=== PATIENT | female | born 1955 | race African-American/Black ===

== ENCOUNTER 2019-06-18 10:37 | Outpatient (CLI) | payer OTHER, SELFPAY ==
[2019-06-18 10:52] LABS: Basophils Absolute Auto 0.1 K/mm3 (0.0-0.1); Basophils Percent Auto 0.4 % (0.2-1.2); Eosinophils Absolute Auto 0.1 K/mm3 (0-0.3); Eosinophils Percent Auto 1.2 % (0-4.4); Hematocrit 37.5 % (37.0-47.0); Hemoglobin 11.7 g/dL (12.0-15.0); Immature Granulocyte Absolute 0.03 K/mm3 (0.00-0.031); Immature Granulocyte Percent A 0.3 % (0-0.5); Lymphocytes Absolute Auto 4.78 K/mm3 (0.9-3.2); Lymphocytes Percent Auto 41.1 % (18.3-44.2); Mean Corpuscular HGB Conc 31.2 g/dl (32-36); Mean Corpuscular Hemoglobin 26.5 pg (26-34); Mean Corpuscular Volume 84.8 fl (80-100); Mean Platelet Volume 9.9 fl (7.4-10.4); Monocytes Absolute Auto 0.6 K/mm3 (0.1-0.6); Monocytes Percent Auto 4.9 % (2.6-8.5); Neutrophils Absolute Auto 6.1 K/mm3 (1.3-6.7); Neutrophils Percent Auto 52.1 % (45.5-73.1); Platelet Count Result 296 k/mm3 (150-375); Red Blood Count 4.42 M/mm3 (4.2-5.4); Red Cell Distribution Width 15.4 % (11.5-14.5); White Blood Count 11.6 K/mm3 (4.5-10.0)
[2019-06-18 11:35] LABS: Iron 51 ug/dL (37-170)
[2019-06-18 11:36] LABS: Blood Urea Nitrogen 15 mg/dL (7-17); Calcium 9.4 mg/dL (8.4-10.2); Carbon Dioxide 25 mmol/L (22-30); Chloride 104 mmol/L (98-107); Estimated Glomerular Filt Rate > 60; Glucose 96 mg/dL (65-105); Potassium 4.4 mmol/L (3.4-5.0); Sodium 135 mmol/L (137-145)
[2019-06-18 11:47] LABS: Percent Iron Saturation 16 % (20-50)
== END 2019-06-18 10:38 | disposition home or self-care (01) ==
PROVIDERS: PCP Internal Medicine; Visit Provider Internal Medicine Hematology & Oncology
DX: D64.9 Anemia, unspecified (principal)
CPT/HCPCS: 36415; 80048; 82728; 83540; 83550; 85025

== ENCOUNTER → 2019-12-13 10:20 | Outpatient (CLI) | payer OTHER, SELFPAY ==
--- NOTE | ~2019-12-13 | DEXA_ITS ---
Bone Density Report Name: Lindsay Pedersen Age: 64 Sex: Female Ethnicity: Black Date of : 1955 Indication: postmenopausal; screening for osteoporosis; hysterectomy; Referring Provider: RALPH FAN Study: Bone densitometry was performed. Exam Date: December 13, 2019 Accession number: [id number] Bone Density: Region BMD T-score Z-score Classification AP Spine (L1, L2, L3) 1.128 1.0 1.9 Normal Femoral Neck (Left) 0.927 0.7 1.1 Normal Total Hip (Left) 1.026 0.7 0.9 Normal Femoral Neck (Right) 0.917 0.6 1.0 Normal Total Hip (Right) 1.032 0.7 0.9 Normal Total Hip Mean 1.029 0.7 0.9 Normal World Health Organization criteria for BMD impression classify patients as: Normal (T-score at or above -1.0), Osteopenia (T-score between -1.0 and -2.5), or Osteoporosis (T-score at or below -2.5). 10-year Fracture Risk: FRAX not reported because: All T-scores for Spine Total, Hip Total, Femoral Neck at or above -1.0 Previous Exams: Region Exam Age BMD T-score BMD Change BMD Change Date g/cm2 vs Baseline vs Previous AP Spine(L1, L2, L3) 12/13/2019 64 1.128 1.0 -0.016 -0.016 11/13/2011 56 1.143 1.1 Total Hip(Left) 12/13/2019 64 1.026 0.7 -0.024 -0.024 11/13/2011 56 1.050 0.9 Total Hip(Right) 12/13/2019 64 1.032 0.7 -0.026 -0.026 11/13/2011 56 1.058 0.9 *Denotes significance at 95% confidence level, LSC for AP Spine = 0.022 g/cm2, LSC for Total Hip = 0.027 g/cm2 Clinical Information Provided by Patient: Has the following medical conditions: Hysterectomy Patient maximum height was 61.2 No regular weight bearing exercise Drinks caffeinated beverages Onset of menses at age 14 Number of children 2 Impression: The patient has normal bone mass. No significant bone loss was observed. Discussion: BONE DENSITY IS ABOVE THE MINIMUM DESIRABLE LEVEL AT ALL SKELETAL SITES TESTED. This patient?s bone mineral density is above the minimum desirable level (T-score -1.0 or better) at all sites measured. The patient should follow a healthful lifestyle (good nutrition with adequate calcium and vitamin D, and appropriate weight-bearing exercise). Follow-Up: Consider repeating this study in 5 years or sooner if there is some new clinical indication. Reported by: CHERRI on 12/13/2019 10:54:00 AM. Reviewed, dictated and finalized at l
== END ==
PROVIDERS: Visit Provider Obstetrics & Gynecology Gynecology
DX: Z78.0 Asymptomatic menopausal state (principal)
CPT/HCPCS: 77080

== ENCOUNTER 2020-01-03 14:53 | Outpatient (CLI) | payer OTHER, SELFPAY ==
[2020-01-03 15:10] LABS: Basophils Absolute Auto 0.1 K/mm3 (0.0-0.1); Basophils Percent Auto 0.5 % (0.2-1.2); Eosinophils Absolute Auto 0.1 K/mm3 (0-0.3); Eosinophils Percent Auto 1.1 % (0-4.4); Hematocrit 35.9 % (37.0-47.0); Hemoglobin 11.4 g/dL (12.0-15.0); Immature Granulocyte Absolute 0.03 K/mm3 (0.00-0.031); Immature Granulocyte Percent A 0.3 % (0-0.5); Lymphocytes Absolute Auto 5.17 K/mm3 (0.9-3.2); Lymphocytes Percent Auto 45.6 % (18.3-44.2); Mean Corpuscular HGB Conc 31.8 g/dl (32-36); Mean Corpuscular Hemoglobin 26.5 pg (26-34); Mean Corpuscular Volume 83.5 fl (80-100); Mean Platelet Volume 10.3 fl (7.4-10.4); Monocytes Absolute Auto 0.6 K/mm3 (0.1-0.6); Monocytes Percent Auto 4.9 % (2.6-8.5); Neutrophils Absolute Auto 5.4 K/mm3 (1.3-6.7); Neutrophils Percent Auto 47.6 % (45.5-73.1); Platelet Count Result 290 k/mm3 (150-375); Red Cell Distribution Width 15.7 % (11.5-14.5); White Blood Count 11.4 K/mm3 (4.5-10.0)
[2020-01-03 16:45] LABS: Iron 44 ug/dL (37-170)
[2020-01-03 16:55] LABS: Percent Iron Saturation 12 % (20-50)
== END 2020-01-03 14:54 | disposition home or self-care (01) ==
LOC: ANHLAB 14:54
PROVIDERS: Visit Provider Internal Medicine Hematology & Oncology
DX: D64.9 Anemia, unspecified (principal)
CPT/HCPCS: 36415; 82728; 83540; 83550; 85025

== ENCOUNTER 2020-07-05 14:00 | Emergency (ER) | payer OTHER, SELFPAY ==
--- NOTE | 2020-07-05 14:05 | ECG_ITS ---
Measurements Intervals [place] Rate: 70 P: 47 MS: 167 QRS: -25 QRSD: 89 T: 31 QT: 393 QTc: 427 Interpretive Statements SINUS RHYTHM WITH SINUS ARRHYTHMIA POSSIBLE LEFT ATRIAL ENLARGEMENT LOW QRS VOLTAGE IN PRECORDIAL LEADS BORDERLINE R WAVE PROGRESSION, ANTERIOR LEADS BORDERLINE T WAVE ABNORMALITY- ANTERIOR LEADS BASELINE ARTIFACT- I, III, AVL, V5 ABNORMAL ECG Electronically Signed On 07-05-2020 14:20:20 CDT by Yoandy Francisco D.O.
[2020-07-05 14:09] VITALS: BP 147/76; PULSE 78; RESP 18; TEMP 36.7; O2SAT 99
[2020-07-05 16:03] LABS: Basophils Absolute Auto 0.1 K/mm3 (0.0-0.1); Basophils Percent Auto 0.5 % (0.2-1.2); Eosinophils Absolute Auto 0.1 K/mm3 (0-0.3); Eosinophils Percent Auto 0.5 % (0-4.4); Hematocrit 36.4 % (37.0-47.0); Hemoglobin 11.5 g/dL (12.0-15.0); Immature Granulocyte Absolute 0.04 K/mm3 (0.00-0.031); Immature Granulocyte Percent A 0.3 % (0-0.5); Lymphocytes Absolute Auto 3.83 K/mm3 (0.9-3.2); Lymphocytes Percent Auto 28.8 % (18.3-44.2); Mean Corpuscular HGB Conc 31.6 g/dl (32-36); Mean Corpuscular Hemoglobin 27.3 pg (26-34); Mean Corpuscular Volume 86.5 fl (80-100); Mean Platelet Volume 10.6 fl (7.4-10.4); Monocytes Absolute Auto 0.7 K/mm3 (0.1-0.6); Monocytes Percent Auto 5.1 % (2.6-8.5); Neutrophils Absolute Auto 8.6 K/mm3 (1.3-6.7); Neutrophils Percent Auto 64.8 % (45.5-73.1); Platelet Count Result 294 k/mm3 (150-375); Red Blood Count 4.21 M/mm3 (4.2-5.4); Red Cell Distribution Width 15.1 % (11.5-14.5); White Blood Count 13.3 K/mm3 (4.5-10.0)
[2020-07-05 16:14] LABS: Anion Gap 5 mmol/L (8-16); Blood Urea Nitrogen 14 mg/dL (7-17); Calcium 9.5 mg/dL (8.4-10.2); Carbon Dioxide 29 mmol/L (22-30); Chloride 101 mmol/L (98-107); Estimated CRCL calculation 66 ml/min; Estimated Glomerular Filt Rate > 60; Glucose 167 mg/dL (65-105); Sodium 135 mmol/L (137-145)
[2020-07-05 16:52] VITALS: BP 144/80; PULSE 67
[2020-07-05 16:53] VITALS: BP 136/73; PULSE 89
[2020-07-05 16:55] VITALS: BP 128/75; PULSE 90
[2020-07-05] MEDS: MECLIZINE HCL 25 MG TABLET PO (17:00)
--- NOTE | 2020-07-05 17:15 | ED.DIZZY ---
HPI - Dizziness General Chief Complaint: Dizziness Stated Complaint: weak, dizzy Time Seen by Provider: 07/05/20 15:38 History of Present Illness HPI Narrative: Patient is a 65-year-old female who presents ER with dizziness. She was at work when occurred. Spinning dizziness associated with nausea but no sweats. She felt unsteady. No focal weakness in arm or leg. She is without chest pain or chest pressure. Has history of vertigo which is seems similar to. No ear pain or tinnitus. No sinus congestion or sore throat or cough. Related Data Home Medications Medication Instructions Recorded Confirmed ferrous sulfate 325 mg (65 mg 325 mg PO DAILY tablet 04/19/19 05/15/20 iron) tablet Allergies Allergy/AdvReac Type Severity Reaction Status Date / Time No Known Allergies Allergy Unverified 01/10/20 15:10 Review of Systems Review of Systems: All systems reviewed & are unremarkable except as noted in HPI and below Constitutional: Constitutional: Denies chills, Denies fever(s) and Denies weakness ENT: Reports dizziness, Denies nasal congestion and Denies sore throat Cardiovascular: Cardiovascular: Denies chest pain and Denies radiating jaw, neck or arm pain Gastrointestinal: Gastrointestinal: Denies abdominal pain, Denies diarrhea, Reports nausea and Denies vomiting Neurologic: Denies headache(s), Denies focal weakness and Denies numbness PMFSH Past Medical History Medical History (Updated 07/05/20 @ 18:29 by Pan Roberts MD) Anemia Diabetes mellitus with renal complications Essential (primary) hypertension Iron deficiency anemia Leukocytosis Mitral valve prolapse Vitamin D deficiency Surgical History Surgical History (Updated 07/05/20 @ 17:19 by Pan Roberts MD) History of hysterectomy Family History Family History (Updated 03/01/19 @ 13:03 by Laquita Hammond [facility]) Mother Cerebrovascular accident Father Pneumonia Sibling Acute myocardial infarction Social History Social History (Updated 04/19/19 @ 08:50 by Yuki Renteria [facility]) Smoking status: Never smoker Smoking end date: 03/24/79 Alcohol intake: never Exam Narrative: Exam Narrative: GENERAL: Well-appearing, well-nourished, and in no acute distress. HEAD: Normocephalic, atraumatic. EYES: PERRLA and EOMI. CHEST: Clear to auscultation. No respiratory distress. HEART: Regular rate and rhythm. Normal peripheral pulses. ABDOMEN: Soft, nontender, nondistended. EXTREMITIES: Normal range of motion. No edema. SKIN: Warm, dry, no rash. NEURO: No focal deficits. No upper or lower extremity drift. Normal [id number] testing. Cranial nerves II through XII intact. Alert and oriented x3. Course Course Emergency Course: Patient informed of results. Feels much better with meclizine and fluids. Discharge home. Vital Signs Vital signs: Vital Signs Temperature 98.0 F 07/05/20 14:09 Pulse Rate 78 07/05/20 14:09 Respiratory Rate 18 07/05/20 14:09 Blood Pressure 147/76 H 07/05/20 14:09 Pulse Oximetry 99 07/05/20 14:09 Temperature 98.0 F 07/05/20 14:09 Pulse Rate 90 07/05/20 16:55 Respiratory Rate 18 07/05/20 14:09 Blood Pressure 128/75 07/05/20 16:55 Pulse Oximetry 99 07/05/20 14:09 MDM - Dizziness Lab Data Result diagrams: 07/05/20 15:56 07/05/20 15:56 Labs: Lab Results 07/05/20 07/05/20 07/05/20 Range/Units 15:56 15:56 17:51 WBC 13.3 H (4.5-10.0) K/mm3 RBC 4.21 (4.2-5.4) M/mm3 Hgb 11.5 L (12.0-15.0) g/dL Hct 36.4 L (37.0-47.0) % MCV 86.5 (80-100) fl MCH 27.3 (26-34) pg MCHC 31.6 L (32-36) g/dl RDW 15.1 H (11.5-14.5) % Plt Count 294 (150-375) k/mm3 MPV 10.6 H (7.4-10.4) fl Immature Gran % (Auto) 0.3 (0-0.5) % Neut % (Auto) 64.8 (45.5-73.1) % Lymph % (Auto) 28.8 (18.3-44.2) % Cochran % (Auto) 5.1 (2.6-8.5) % Eos % (Auto) 0.5 (0-4.4) % Baso % (A
[2020-07-05 17:59] LABS: Add Urine Microscopic? NO; Appearance Urine Clear (Clear); Bilirubin Urine Negative (Negative); Blood Urine Negative (Negative); Color Urine Straw (Yellow); Glucose Urine UA Negative (Negative); Ketones Urine Negative (Negative); Leukocyte Esterase Ur Negative LEU/UL (Negative); Nitrate Urine Negative (Negative); Protein Urine Negative (Negative); Specific Grav Ur 1.006 (1.001-1.035); Urobilinogen Urine Negative mg/dL (<2.0)
[2020-07-05] MEDS: SODIUM CHLORIDE 0.9% IV 1,000 ML 999 ML IV CONT (18:00)
[2020-07-05 19:16] VITALS: BP 115/63; PULSE 76; RESP 18; O2SAT 99
== END 2020-07-05 19:28 | disposition home or self-care (01) ==
PROVIDERS: Emergency Provider Emergency Medicine; PCP Internal Medicine
DX: R42 Dizziness and giddiness (principal); I10 Essential (primary) hypertension; E55.9 Vitamin D deficiency, unspecified; D50.9 Iron deficiency anemia, unspecified; R94.31 Abnormal electrocardiogram [ECG] [EKG]; I34.1 Nonrheumatic mitral (valve) prolapse; E11.29 Type 2 diabetes mellitus with other diabetic kidney complication; N28.9 Disorder of kidney and ureter, unspecified; Z79.84 Long term (current) use of oral hypoglycemic drugs
CPT/HCPCS: 36415; 80048; 81003; 85025; 93005; 96360; 99284; A9270; J7030

== ENCOUNTER 2020-08-02 13:03 | Outpatient (CLI) | payer OTHER, SELFPAY ==
[2020-08-02 13:57] LABS: Basophils Percent Auto 0.3 % (0.2-1.2); Eosinophils Absolute Auto 0.1 K/mm3 (0-0.3); Eosinophils Percent Auto 1.1 % (0-4.4); Hematocrit 38.4 % (37.0-47.0); Hemoglobin 12.2 g/dL (12.0-15.0); Immature Granulocyte Absolute 0.02 K/mm3 (0.00-0.031); Immature Granulocyte Percent A 0.2 % (0-0.5); Lymphocytes Absolute Auto 5.69 K/mm3 (0.9-3.2); Lymphocytes Percent Auto 44.1 % (18.3-44.2); Mean Corpuscular HGB Conc 31.8 g/dl (32-36); Mean Corpuscular Hemoglobin 27.1 pg (26-34); Mean Corpuscular Volume 85.3 fl (80-100); Mean Platelet Volume 10.5 fl (7.4-10.4); Monocytes Absolute Auto 0.7 K/mm3 (0.1-0.6); Monocytes Percent Auto 5.2 % (2.6-8.5); Neutrophils Absolute Auto 6.3 K/mm3 (1.3-6.7); Neutrophils Percent Auto 49.1 % (45.5-73.1); Platelet Count Result 347 k/mm3 (150-375); White Blood Count 12.9 K/mm3 (4.5-10.0)
[2020-08-02 16:23] LABS: Iron 39 ug/dL (37-170)
[2020-08-02 16:33] LABS: Anion Gap 10 mmol/L (8-16); Blood Urea Nitrogen 17 mg/dL (7-17); Calcium 10.1 mg/dL (8.4-10.2); Carbon Dioxide 27 mmol/L (22-30); Chloride 101 mmol/L (98-107); Estimated Glomerular Filt Rate > 60; Glucose 136 mg/dL (65-105); Potassium 4.2 mmol/L (3.4-5.0); Sodium 138 mmol/L (137-145)
[2020-08-02 16:34] LABS: Percent Iron Saturation 12 % (20-50)
[2020-08-02 16:36] LABS: Hemoglobin A1C 8.5 % (<5.7)
[2020-08-02 16:55] LABS: Creatinine Urine 103.3 mg/dL
[2020-08-02 16:59] LABS: MALB Creatinine Ratio 74.1 mg/g (0-30); Microalbumin Urine Random 76.5 mg/L (0-16.7)
== END 2020-08-02 13:04 | disposition home or self-care (01) ==
PROVIDERS: PCP Internal Medicine; Visit Provider Internal Medicine Hematology & Oncology
DX: D64.9 Anemia, unspecified (principal); E11.29 Type 2 diabetes mellitus with other diabetic kidney complication
CPT/HCPCS: 36415; 80048; 82043; 82728; 83036; 83540; 83550; 85025

== ENCOUNTER → 2021-03-26 01:29 | Outpatient (CLI) | payer OTHER, SELFPAY ==
[2021-03-27 13:54] LABS: SARS-CoV-2 RNA PCR Negative
== END ==
PROVIDERS: PCP Internal Medicine; Visit Provider Nurse Practitioner
DX: R68.89 Other general symptoms and signs (principal); Z20.822 Contact with and (suspected) exposure to COVID-19
CPT/HCPCS: C9803; U0003; U0005

== ENCOUNTER 2023-04-21 07:31 | Emergency (ER) | payer MEDICARE, MEDICAID, SELFPAY ==
--- NOTE | ~2023-04-21 | XR_ITS ---
EXAMINATION: XR knee RT 3V DATE: 04/21/2023 11:17 INDICATION: Right knee pain. Fall. TECHNIQUE: 3 views of right knee were obtained. COMPARISON: None. FINDINGS: Bone alignment is normal. No fracture. There is moderate osteoarthritis of medial compartme nt and mild osteoarthritis of lateral compartment. No knee joint effusion. IMPRESSION: 1. Moderate right knee osteoarthritis. Reviewed, dictated and finalized at location A. 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
--- NOTE | ~2023-04-21 | XR_ITS ---
EXAMINATION: XR chest 2V DATE: 04/21/2023 10:22 INDICATION: Shortness of breath. TECHNIQUE: Frontal and lateral views of the chest were obtained. COMPARISON: Chest 2 views 02/23/2018 FINDINGS: There is no pneumonia, pleural effusion, or pneumothorax. Cardiomegaly is noted. IMPRESSION: 1. Cardiomegaly. Reviewed, dictated and finalized at location A. 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 Cardiomegaly.
[2023-04-21 07:36] VITALS: BP 156/81; PULSE 85; RESP 18; TEMP 36.5; O2SAT 100
[2023-04-21 09:56] VITALS: BP 148/75; PULSE 74; PULSE 78; RESP 18; O2SAT 100
--- NOTE | 2023-04-21 10:10 | ECG_ITS ---
Measurements Intervals [place] Rate: 72 P: 42 IN: 170 QRS: -21 QRSD: 106 T: 24 QT: 410 QTc: 452 Interpretive Statements SINUS RHYTHM POSSIBLE LEFT ATRIAL ENLARGEMENT CONSIDER ANTEROSEPTAL INFARCT, AGE INDETERMINATE CONSIDER INFERIOR INFARCT, AGE INDETERMINATE BASELINE ARTIFACT- I, II, AVR, AVL ABNORMAL ECG COMPARED TO ECG 07/05/2020 14:17:37 MYOCARDIAL INFARCT NOW PRESENT Electronically Signed On 04-21-2023 11:59:52 PURSE [employer]AMER by Yoandy Francisco D.O.
--- NOTE | 2023-04-21 10:56 | ED.GENADULT ---
HPI - General Adult General Chief complaint: Shortness of Breath/Dyspnea Stated complaint: shortness of breath Time Seen by Provider: 04/21/23 10:09 History of Present Illness HPI narrative: 68-year-old female presenting to the emergency department for evaluation for increased exertional shortness of breath. Patient states she had a ground level fall a few days ago. Patient reports she did re-injure her right knee, patient reports he does have a known meniscus injury to that knee. Patient does have a prior history of a meniscus injury to that right knee but states that it feels more comfortable after having fall. Patient was also complaining about some gurgling sounds when she lies on her left. Patient denies any current chest pain or shortness of breath. Patient denies any prior history of CHF Related Data Allergies Allergy/AdvReac Type Severity Reaction Status Date / Time No Known Allergies Allergy Unverified 04/21/23 10:05 Review of Systems Review of Systems: All systems reviewed & are unremarkable except as noted in HPI and below PMFSH Past Medical History Medical History Anemia Diabetes mellitus with renal complications Essential (primary) hypertension Hyperlipidemia Iron deficiency anemia Leukocytosis Mitral valve prolapse ESTELA (obstructive sleep apnea) Vitamin D deficiency Surgical History Surgical History (Reviewed 04/17/21 @ 08:26 by Romana Hazel [facility]) History of hysterectomy Family History Family History Mother Cerebrovascular accident Father Pneumonia Sibling Acute myocardial infarction Social History Social History (Reviewed 04/17/21 @ 08:26 by Romana Hazel [facility]) Smoking status: Never smoker Smoking end date: 03/24/79 Alcohol intake: never Exam Narrative: APPEARANCE: Well appearing, no pain, no distress, well-nourished. HEAD: normocephalic, atraumatic. EYES: PERRLA/EOMI, conjunctivae clear. NOSE: Normal no drainage NECK: Supple. No adenopathy, no masses. RESPIRATORY: Airway patent, respirations nonlabored. Clear to auscultation bilaterally, no rales, rhonchi, wheezing. CARDIOVASCULAR: Regular rate and rhythm without murmurs rubs or gallops. ABDOMINAL: Soft, nontender, nondistended, normal bowel sounds MUSCULOSKELETAL: Effusion to right knee NEURO: Alert. Cranial nerves II through XII intact. Good gait. Good coordination SKIN: Warm, dry. Normal Color Course Course Emergency Course: 68-year-old female presented to the emergency department for evaluation of some left-sided chest congestion. Patient is afebrile with no significant leukocytosis and hemoglobin 11.8, patient has no acute abnormalities on her CMP and patient's BNP was only 242. UA shows no evidence of infection patient was negative for COVID RSV and influenza. X-ray of the knee did show osteoarthritis and chest x-ray showed cardiomegaly. EKG show normal sinus rhythm. Patient was updated results of her workup be was encouraged to have follow-up with her primary care physician. All questions concerns were addressed patient was well-appearing at time of discharge. Vital Signs Vital signs: Vital Signs Temperature 97.7 F 04/21/23 07:36 Pulse Rate 85 04/21/23 07:36 Respiratory Rate 18 04/21/23 07:36 Blood Pressure 156/81 H 04/21/23 07:36 Pulse Oximetry 100 04/21/23 07:36 Oxygen Delivery Room Air 04/21/23 07:36 Temperature 97.7 F 04/21/23 07:36 Pulse Rate 70 04/21/23 11:13 Respiratory Rate 18 04/21/23 11:13 Blood Pressure 138/72 04/21/23 11:13 Pulse Oximetry 100 04/21/23 11:13 Oxygen Delivery Room Air 04/21/23 09:56 Medical Decision Making Differential Diagnosis Differential Diagnosis: Internal derangement of knee, CHF, pneumonia, COVID, influenza, RSV Vital Signs Vital Signs: Vital Signs Temperatu
[2023-04-21 10:59] LABS: Basophils Absolute Auto 0.1 K/mm3 (0.0-0.1); Basophils Percent Auto 0.5 % (0.2-1.2); Eosinophils Absolute Auto 0.1 K/mm3 (0-0.3); Eosinophils Percent Auto 0.8 % (0-4.4); Hematocrit 38.4 % (37.0-47.0); Hemoglobin 11.8 g/dL (12.0-15.0); Immature Granulocyte Absolute 0.02 K/mm3 (0.00-0.031); Immature Granulocyte Percent A 0.2 % (0-0.5); Lymphocytes Percent Auto 42.2 % (18.3-44.2); Mean Corpuscular HGB Conc 30.7 g/dl (32-36); Mean Corpuscular Hemoglobin 26.3 pg (26-34); Mean Corpuscular Volume 85.7 fl (80-100); Mean Platelet Volume 10.7 fl (7.4-10.4); Monocytes Absolute Auto 0.5 K/mm3 (0.1-0.6); Monocytes Percent Auto 5.1 % (2.6-8.5); Neutrophils Absolute Auto 5.2 K/mm3 (1.3-6.7); Neutrophils Percent Auto 51.2 % (45.5-73.1); Platelet Count Result 271 k/mm3 (150-375); Red Blood Count 4.48 M/mm3 (4.2-5.4); Red Cell Distribution Width 15.5 % (11.5-14.5); White Blood Count 10.2 K/mm3 (4.5-10.0)
[2023-04-21 11:13] VITALS: BP 138/72; PULSE 70; RESP 18; O2SAT 100
[2023-04-21 11:14] LABS: Alanine Aminotransferase 13 U/L (6-35); Alkaline Phosphatase 82 U/L (38-126); Anion Gap 6 mmol/L (8-16); Aspartate Amino Transferase 20 U/L (14-36); Bilirubin,Total 0.4 mg/dL (0.2-1.3); Blood Urea Nitrogen 13 mg/dL (7-17); Calcium 9.4 mg/dL (8.4-10.2); Carbon Dioxide 27 mmol/L (22-30); Chloride 103 mmol/L (98-107); Estimated CRCL calculation 51 ml/min; Estimated Glomerular Filt Rate > 60; Glucose 89 mg/dL (65-110); Potassium 3.9 mmol/L (3.4-5.0); Sodium 136 mmol/L (137-145)
[2023-04-21 11:37] LABS: Influenza A QL RT-PCR Negative (Negative); Influenza B QL RT-PCR Negative (Negative); RSV RNA, RT-PCR Negative (Negative); SARS-CoV-2 RNA PCR Negative (Negative)
[2023-04-21 11:48] LABS: Appearance Urine Clear (Clear); Bilirubin Urine Negative (Negative); Blood Urine Negative (Negative); Color Urine Yellow (Yellow); Glucose Urine UA 2+ mg/dL (Negative); Ketones Urine Negative (Negative); Leukocyte Esterase Ur Negative LEU/UL (Negative); Nitrate Urine Negative (Negative); Protein Urine Negative (Negative); Specific Grav Ur 1.005 (1.001-1.035); Urobilinogen Urine 0.2 mg/dL (<2.0); pH Urine 6.5 (5.0-9.0)
[2023-04-21 11:52] LABS: Add Urine Microscopic? YES
[2023-04-21 11:56] LABS: NT Pro B Type Natriuretic Pept 242 pg/mL (19.9-100)
== END 2023-04-21 12:45 | disposition home or self-care (01) ==
PROVIDERS: Emergency Provider Emergency Medicine; PCP Internal Medicine
DX: R05.9 Cough, unspecified (principal); M17.11 Unilateral primary osteoarthritis, right knee; E11.9 Type 2 diabetes mellitus without complications; I10 Essential (primary) hypertension; E78.5 Hyperlipidemia, unspecified; Z20.822 Contact with and (suspected) exposure to COVID-19
CPT/HCPCS: 36415; 71046; 73562; 80053; 81001; 83880; 85025; 87637; 93005; 99284

== ENCOUNTER 2024-03-16 00:17 | Day surgery (SDC) | payer MEDICARE, MEDICAID, SELFPAY ==
[2024-03-04 11:49] VITALS: BMI 38.4
--- NOTE | 2024-03-16 07:38 | WPDANESEPPF ---
Anes - Initial Pre Proc Eval Procedure: Operation Date: 03/16/24 11:00 Proposed Procedures p Screening Colonoscopy - Chaim Roberson MD Date/Time: 03/16/24 07:38 Surgeon: Chaim Roberson MD Pre Op Diagnosis: screening neoplasm colon Patient Data Age: 69 Gender: F Height: 1.57 m Weight: 95.3 kg Allergies Allergy/AdvReac Type Severity Reaction Status Date / Time adhesive tape AdvReac Itching Verified 03/16/24 09:36 Home Medications ?Medication ?Instructions ?Recorded ?Confirmed ?Type amlodipine 10 mg tablet 10 mg PO DAILY #90 tabs 08/11/20 03/16/24 Rx atorvastatin 20 mg tablet 20 mg PO QHS #90 tabs 04/17/21 03/04/24 Rx lancets (Accu-Chek Softclix #100 ea 06/14/21 03/04/24 Rx Lancets) blood-glucose meter (Accu-Chek #1 ea 06/15/21 03/04/24 Rx Guide Glucose Meter) losartan 100 mg tablet 100 mg PO DAILY #90 tabs 08/09/21 03/04/24 Rx blood sugar diagnostic (Accu-Chek #100 ea 11/11/22 03/04/24 Rx Guide test strips) calcitriol 0.25 mcg capsule 0.25 mcg PO DAILY 03/04/24 03/04/24 History dapagliflozin propanediol 10 mg 10 mg PO DAILY 03/04/24 03/04/24 History tablet (Farxiga) dulaglutide 1.5 mg/0.5 mL 1.5 mg subcut WEEKLY 03/04/24 03/04/24 History subcutaneous pen injector (Trulicity) ergocalciferol (vitamin D2) 1,250 50,000 unit PO WEEKLY 03/04/24 03/04/24 History mcg (50,000 unit) capsule linaclotide 72 mcg capsule 145 mcg PO DAILY 03/04/24 03/04/24 History (Linzess) Patient hx anesthesia problems: none Family hx anesthesia problems: none Results Review: All pre-operative results and documents have been reviewed as part of the pre-operative evaluation. [facility] Past Medical History Medical History (Reviewed 04/17/21 @ 08:26 by Romana Hazel, [facility]) Anemia Diabetes mellitus with renal complications Essential (primary) hypertension Hyperlipidemia Iron deficiency anemia Leukocytosis Mitral valve prolapse ESTELA (obstructive sleep apnea) Vitamin D deficiency Surgical History Surgical History History of hysterectomy Family History Family History Mother Cerebrovascular accident Father Pneumonia Sibling Acute myocardial infarction Social History Social History Smoking status: Never smoker Smoking end date: 03/24/79 Alcohol intake: never Substance use type: does not use Living arrangements: alone Spiritual care concerns: No Anes - Eval Final PreProcedure Day of Procedure 03/16/24 07:38 Patient weight: obese Heart: regular rate and rhythm Lungs: clear to auscultation Airway: Mallampati scale class II Neurological: alert and oriented Last oral intake: >/= 8 hours ASA classification: III Emergent: no Anesthetic plan: proceed Anesthesia type and monitoring: general GIVS and standard monitoring Results Review: All pre-operative results and documents have been reviewed as part of the pre-operative evaluation. Informed Consent: The patient's anesthetic plan and its attendant risks and benefits were discussed with the patient/family/POA. Questions were solicited and answers provided to the satisfaction of the patient/family/POA.
[2024-03-16 09:38] VITALS: BP 150/100; PULSE 81; RESP 18; TEMP 36.2; O2SAT 100; BMI 36.9
[2024-03-16 09:43] LABS: Glucose Point of Care 86 mg/dl (65-105)
[2024-03-16] MEDS: LACTATED RINGERS 1,000 ML 150 ML IV CONT (09:55)
--- NOTE | 2024-03-16 10:05 | PM.HPGS ---
History of Present Illness History of Present Illness Consent: Risks, benefits, and alternatives have been discussed and questions answered. Patient agrees to proceed with procedure. Chief complaint: screening neoplasm colon Narrative: Lindsay Pedersen is a 69 year old female here for screening colonoscopy, last one more than 10 years ago Review of Systems Review of Systems: All systems reviewed & are unremarkable except as noted in HPI and below PMFSH Past Medical History Medical History (Updated 03/16/24 @ 10:05 by Chaim Roberson MD) Colon cancer screening Hyperlipidemia ESTELA (obstructive sleep apnea) Mitral valve prolapse Iron deficiency anemia Vitamin D deficiency Leukocytosis Essential (primary) hypertension Anemia Diabetes mellitus with renal complications Surgical History Surgical History (Reviewed 04/17/21 @ 08:26 by Romana Hazel [facility] [address]) History of hysterectomy Family History Family History Mother Cerebrovascular accident Father Pneumonia Sibling Acute myocardial infarction Social History Social History Smoking status: Never smoker Smoking end date: 03/24/79 Alcohol intake: never Substance use type: does not use Living arrangements: alone Spiritual care concerns: No Meds Home Medications and Allergies Home Medications ?Medication ?Instructions ?Recorded ?Confirmed ?Type amlodipine 10 mg tablet 10 mg PO DAILY #90 tabs 08/11/20 03/16/24 Rx atorvastatin 20 mg tablet 20 mg PO QHS #90 tabs 04/17/21 03/16/24 Rx lancets (Accu-Chek Softclix #100 ea 06/14/21 03/04/24 Rx Lancets) blood-glucose meter (Accu-Chek #1 ea 06/15/21 03/04/24 Rx Guide Glucose Meter) losartan 100 mg tablet 100 mg PO DAILY #90 tabs 08/09/21 03/16/24 Rx blood sugar diagnostic (Accu-Chek #100 ea 11/11/22 03/04/24 Rx Guide test strips) calcitriol 0.25 mcg capsule 0.25 mcg PO DAILY 03/04/24 03/16/24 History dapagliflozin propanediol 10 mg 10 mg PO DAILY 03/04/24 03/16/24 History tablet (Farxiga) dulaglutide 1.5 mg/0.5 mL 1.5 mg subcut WEEKLY 03/04/24 03/16/24 History subcutaneous pen injector (Trulicity) ergocalciferol (vitamin D2) 1,250 50,000 unit PO WEEKLY 03/04/24 03/16/24 History mcg (50,000 unit) capsule linaclotide 72 mcg capsule 145 mcg PO DAILY 03/04/24 03/16/24 History (Linzess) Allergies Allergy/AdvReac Type Severity Reaction Status Date / Time adhesive tape AdvReac Itching Verified 03/16/24 09:36 Vital Signs Vital Signs - 24 hr 03/16/24 09:38 Temperature 97.2 F L Pulse Rate 81 Respiratory Rate 18 Blood Pressure 150/100 H Pulse Oximetry 100 Oxygen Delivery Room Air Exam Const: General: comfortable and no acute distress HENMT: Face/Nose/Sinus: Normal nares present Eyes: General: appearance normal, both eyes and all related structures Neck: Neck: no JVD Resp: Auscultation: clear to auscultation bilaterally Cardio: Rate: regular rate Rhythm: regular rhythm GI: Inspection: non-distended GI Palp: Yes Soft to palpation Skin: General skin exam: normal color Neuro: General: gait normal Speech: normal speech Extrem: General: normal to inspection Psych: Mental Status: mental status grossly normal Assessment and Plan Assessment and plan (1) Colon cancer screening: Code(s): Z12.11 - Encounter for screening for malignant neoplasm of colon Status: Acute Assessment and Plan: colonoscopy
[2024-03-16 10:18] VITALS: BP 122/58; PULSE 73; RESP 15; O2SAT 96
[2024-03-16 10:28] VITALS: BP 127/63; PULSE 63; RESP 23; O2SAT 99
[2024-03-16 10:38] VITALS: BP 132/62; PULSE 71; RESP 20; O2SAT 100
--- OUTSIDE RECORDS SUMMARY | 2024-03-23 01:46 | XMS_ITS ---
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 Name Role Phone Fidencio French MD Primary Care Provider Unavail able Tammy Aponte Unavailable [phone] Allergies No Known Allergies REASON FOR VISIT DFC (Diabetic foot care) Medications Medication SIG (Take, Route, Fr equency, Duration) Notes Start Date End Date Status amLODIPine Besylate Active Farxiga Active Losartan Potassium A ctive Calcitriol Active Vitamin D Active Trulicity Active Atorvastatin Calcium Active Vital Signs Height 62 in 01/21/2024 Weight 205 lbs 01/21/2024 BMI 37.49 kg/m2 01/21/2024 Encounters Encounter Location Date Provider Diagnosis 1 OF Agusto Choudhury [facility] [address] [address] 01/21/2024 Tamym Fadi Onychodystrophy L60. 3 ; Type 2 diabetes mellitus with other diabetic neurological complication E11.49 and Callus L84 Assessments Encounter Date Diagnosis (ICD Code) Assessment Notes Treatment Notes Treatment Clinical Notes Section Notes 01/21/2024 Onychodystrophy (ICD-10 - L60.3) 01/21/2024 Type 2 diabetes mellitus with other diabetic neurological complication (ICD-10 - E11.49) Considering the associated comorbidities and physical exam findings today, this patient is at substantial risk of developing serious foot complications in the absence of regular and professional palliative foot care. Discussed diabetic shoes and inserts. She will call if she would like a prescription for diabetic inserts. 01/21/2024 Callus (ICD-10 - L84) Plan Of Treatment Treatment Notes Assessment Notes Type 2 diabetes mellitus wit h other diabetic neurological complication Considering the associated comorbidities and physical exam findings today, this patient is at substantial risk of developing serious foot complications in the absence of regular and professional palliative foot care. Discussed diabetic shoes and inserts. She will call if she would like a prescription for diabetic inserts. Next Appt Details Follow Up: 10-12 weeks or co ntact office PRN with any concerns, Reason: Provider Name:Tammy Tannera, 04/01/2024 10:40:00 AM, [address], [address], [place], [address], Procedure Notes * Category Sub-Category Detail Notes PALLIATIVE FOOT CARE: Callus paring: ([id number]) Le ss than five calluses as noted above reduced with a sterile scalpel blade Dystrophic nail trim (G0127) All dystrop hic nails reduced in length and thickness with curettage of debris from nail margins as needed Progress Notes * Danielle PEDERSENhDOB:1955 (69 yo F)Acc No.[id number]:01/21/2024 Progress Note Patient:?Danielle PEDERSENh Provider:?Tammy Aponte DPM :1955???Age:69 Y???Sex:Female D ate:01/21/2024 Address:[address] [place], [place] [id number] Pcp:Fidencio French MD Subjective: * Chief Complaints: * ???DFC (Diabetic foot care) * HPI: ???MA assisting with visit::?HPI/Rooming:?Nalini.?Primary reason for visit::?Diabetic Foot Care: ?69 y/o diabetic female RTO for diabetic foot care. Patient reports no acute issues with nails or calluses today. She has some questions about diabetic inserts. Reports last HA1c of 5.8.? * ROS:?* MULTI-SYSTEM REVIEW::?Nausea, fever or chillls?denies.?Currently dealing with infection, flu or open wound: ?denies.?Any change in medications since last visit??denies.?Any changes in medical history/hospitalizations??denies.? * Medical History:? * Surgical History:?RT TKR 2023 * Hospitalization/Major Diagno stic Procedure:? * Medications:?TakingCalcitrio l Vitamin D Farxiga Losartan Potassium amLODIPine Besylate Atorvastatin Calcium Trulicity Medication List reviewed and reconciled with the patientTaking Calcitriol Taking Vitamin D Taking Farxiga Taking Losartan Potassium Taking amLODIPine Besylate Taking Atorvastatin Calcium Taking Trulicity Medication List reviewed and reconciled with the patient * Allergies:?N.K.D.A.no[Allerg ies Verified] Objective: * Vitals:?Wt:205lbs, Wt-k .99 kg, Ht: 62 in, BMI:37.49Index. * Examination: ???General Examination: ?Constitutional / Appearance: ?No acute distress , Well nourished, Appropriate personal hygiene.?Mental status: ?Cooperative, Oriented to person, place and time, Mood and affect: normal, Judgement and intellect: normal with appropriate response to questions.?Shoes today:?Sneakers.?Lower Extremity VASCULAR: : ?Pulses:?DP pulse diminished b/l , PT pulse diminished b/l.?Temperature gradient: ?relatively warm from proximal to distal, bilateral.?Pedal hair: ?sparse, bilateral.?Venous insufficiency edema:?Mild, bilateral lower legs.?Capillary refill at distal toes? less than 3 seconds, bilateral.?Lower Extremity DERM: : ?Skin: ?no suspicious lesions, no open sores, without interdigital maceration, bilateral.?Nails:?Nails appear elongated and dystrophic with abnormal shape, periungual debris, subungual hyperkeratosis..?Hyperkeratotic lesions LEFT foot: ?medial hallux IPJ.?Hyperkeratotic lesions RIGHT foot: ?medial hallux IPJ.?Lower Extremity NEURO: : ?General sensation appears?intact , bilateral.?Muscle tone?within normal limits , bilateral.?Monofilament test (10 gram pressure)?Exam of 05/01/2023:?revealed intact sensation to, multiple toes, entire foot, bilateral.?Vibration perception: ?Exam of 05/01/2023:?noted intact per evaluation with 128Hz tuning fork applied to distal hallux compared to ipsilateral medial malleolus @ left foot, noted significantly diminished per evaluation with 128Hz tuning fork applied to distal hallux compared to ipsilateral medial malleolus @ right foot.?Lower Extremity MSK: : ?Gait?Slow, wide-based gait.?Foot type:?Bilateral lower extremity exhibits pes planus foot type with decreased medial arch.?Left lower extremity inspection and palpation: ?No palpable masses or nodules noted. Adequate ROM noted to the joints..?Right lower extremity inspection and palpation: ?No palpable masses or nodules noted. Adequate ROM noted to the joints.?.?Foot deformities:?Bilateral:, hammertoes.? Assessment: * Assessment: 1.?Onychodystrophy - L60.3?? ?2.?Type 2 diabetes mellitus with other diabetic neurological complication - E11.49 (Primary)???3.?Callus - L84??? Plan: * Treatment: * Procedures:?PALLIATIVE FOOT CARE::?Callus paring: ?([id number]) Less than five calluses as noted above reduced with a sterile scalpel blade.?Dystrophic nail trim (G0127)?All dystrophic nails reduced in length and thickness with curettage of debris from nail margins as needed.? * Procedure Codes:?90429 TRIM SKIN LESIONS, 2 TO [id number] TRIMMING DYSTROPHIC NAILS ANY #, Modifiers: 59 * Preventive Medicine:? ??Screenings:?FALL RISK SCREENING?Fall Risk Assessment:?One fall without injury in the past year * Follow Up:?10-12 weeks or co ntact office PRN with any concerns * Images: * ARCHITECT Sign off status: Completed true * Provider:Ran Aponte DPM Date:?2023 Generated for Alisa burns/[place]/Maryitting on:?03/23/2024 01:46 AM EDI ARCHITECT History and Physical Notes * HPI (History of Present Illness) Category Sub-Category Detail Notes Category Not es Primary reason for visit: Diabetic Foot Care: 69 y/o diabetic female RTO for diabetic foot care. Patient reports no acute issues with nails or calluses today. She has some questions about diabetic inserts.Reports last HA1c of 5.8 MA assisting with visit: HPI/Rooming: Nalini Examination Category Sub-Category Detail Notes Category Not es General Examination Mental status: Cooperative, Oriented to person, place and time, Mood and affect: normal, Judgement and intellect: normal with appropriate response to questions Shoes today: Sneakers Constitutional / Appearance: No acute di stress , Well nourished, Appropriate personal hygiene Lower Extremity VASCULAR: Venous insufficiency e milka: Mild, bilateral lower legs Pulses: DP pulse diminished b/l , PT pulse diminished b/l Temperature gradient: relatively warm fr om proximal to distal, bilateral Pedal hair: sparse, bilateral Capillary refill at distal toes less nithin n 3 seconds, bilateral Lower Extremity NEURO: Monofilament test (10 gram pressure) Exam of 05/01/2023: revealed intact sensation to, multiple toes, entire foot, bilateral Vibration perception: Exam of 05/01/2023 : noted intact per evaluation with 128Hz tuning fork applied to distal hallux compared to ipsilateral medial malleolus @ left foot, noted significantly diminished per evaluation with 128Hz tuning fork applied to distal hallux compared to ipsilateral medial malleolus @ right foot General sensation appears intact , bilat eral Muscle tone within normal limits , bilateral Lower Extremity MSK: Foot type: Bilateral l ower extremity exhibits pes planus foot type with decreased medial arch Foot deformities: Bilateral:, hammerto es Left lower extremity inspect ion and palpation: No palpable masses or nodules noted. Brynn quate ROM noted to the joints. Right lower extremity inspec tion and palpation: No palpable masses or nodules noted. Brynn quate ROM noted to the joints. Gait Slow, wide-based gai t Lower Extremity DERM: Skin: no suspici ous lesions, no open sores, without interdigital maceration, bilateral Nails: Nails appear elongat ed and dystrophic with abnormal shape, periungual debris, subungual hyperkeratosis. Hyperkeratotic lesions LEFT foot: medial hallux IPJ Hyperkeratotic lesions RIGHT foot: media l hallux IPJ
--- OUTSIDE RECORDS SUMMARY | 2024-03-23 01:46 | XMS_ITS ---
Author Name Amina Mccray Address [address] [facility] [address] [place] [address] [facility], Address [address] [facility] [address] [place] [address] Care Team Providers Care Billing Clerk Name Role Phone Amina Mccray Primary Care Physician Unavailab le Amina Mccray Preferred Provider Unavailable Allergies and Adverse Reactions Name Reaction Notes NO KNOWN DRUG ALLERGIES Plan of Treatment Planned Activity Comments Planned Date Planned Time Plan /Goal GUSTAVO w/ creatinine 01/14/2024 12:00 AM GUSTAVO w/ creatinine 01/14/2024 12:00 AM QuantaFlo, In-Center Only 01/14/2024 2:02 PM QuantaFlo, In-Center Only 01/14/2024 2:22 PM XR, Skull <4 views 08/22/2021 12:00 AM XR, Knee 1 or 2 views 08/22/2021 12:00 AM DEXA scan axial skeleton 08/22/2021 12:00 AM Transthoracic Echocardiogram (Standard echo) (TTE) 08/22/2021 12:00 AM XR, Chest 2 views 11/21/2021 12:00 AM Screening mammography of bot h breasts, two views 12/27/2021 12:00 AM XR, Left Knee 3 views 02/06/2022 12:00 AM MRI, Right knee w/o contrast 02/06/2022 12:00 A M XR, Chest 3 views 02/06/2022 12:00 AM Venous Duplex US, R lower extremity 02/06/2022 12:00 AM DEXA scan axial skeleton 03/11/2022 12:00 AM XR, Hip w/ pelvis 2-3 views, unilateral 12:00 AM Medications Active Name Start Date Estimated Comple tion Date SIG Comments Vitamin D2 1,250 mcg 01/14/2024 take 1 capsule once a week on the same day calcitriol 0.25 01/14/2024 take 1 capsu le (0.25 mcg) by oral route once daily Farxiga 10 01/14/2024 take 1 tablet ( 10 mg) by oral route once daily in the morning Linzess 145 mcg capsule 01/14/2024 01/08/2025 Take 1 pill in the morning. Trulicity Subcutaneous Solution Auto-injector 1.5 MG/0.5ML 02/05/2024 01/30/2025 inject 1.5 mg by subcutaneous route once a week Atorvastatin 20 mg tablet 03/04/2024 02/27/2025 take 1 tablet (20 mg ) by oral route once daily at bedtime Name Start Date Expiration Date SIG Comments losartan 100 mg tablet 11/21/2021 11/16/2022 take 1 tablet (100 mg) by oral route once daily hydrochlorothiazide 12.5 mg tablet 11/21/2021 11/16/2022 take 1 tablet (12.5 mg) by oral route once daily for 90 days amlodipine 10 mg tablet 11/21/2021 11/16/2022 take 1 tablet (10 mg) by oral route once daily for 90 days Linzess oral capsule 72 mcg 11/23/2021 12/23/2021 take 1 capsule (72 mcg) by oral route once daily on an empty stomach at least 30 minutes before 1st meal of the day for 30 days Zithromax Z-Joseph 250 mg tablet 11/23/2021 11/28/2021 take 2 tablets (500 mg) by oral route once daily for 1 day then 1 tablet (250 mg) by oral route once daily for 4 days tramadol 50 mg tablet 03/05/2022 04/04/2022 take 1 tablet (50 mg) by oral route twice daily as needed for pain Trulicity 1.5 mg/0.5 mL subcutaneous pen injector 05/08/2022 09/05/2022 inject 0.5 mil liliter (1.5 mg) by subcutaneous route every 7 days for 30 days sulfamethoxazole 800 mg-trimethoprim 160 mg tablet 05/10/2022 05/20/2022 take 1 tablet by ora l route every 12 hours for 10 days Triamcinolone Topical 0.025% cream 01/14/2024 01/28/2024 Apply a thin layer t o the affected area in the morning and in the evening Cephalexin 500 mg capsule 01/16/2024 01/21/2024 Ta ke 1 pill in the morning and 1 pill at bedtime. Miconazole 7 Vaginal Cream 2 % 2024 01/26/2024 take as prescribed Discontinued Name Start Date Discontinued Date SIG Comment s felodipine ER 2.5 mg tablet,extended release 24 hr 08/02/2021 take 1 tablet (2.5 mg) by oral route once daily Wrong medication cephalexin 500 mg capsule 05/10/2022 05/10/2022 take 1 capsule (500 mg) by oral route every 12 hours for 10 days Problem List Description Status Onset Class 3 severe obesity due t o excess calories with serious comorbidity and body mass index (BMI) of 40.0 to 44.9 in adult Active 07/25/2021 History of lumpectomy of left breast Active 07/25/2021 History of breast biopsy Active Murmur, cardiac Active 07/25/2021 HLD (hyperlipidemia) Active 07/25/2021 Sleep apnea Active 07/25/2021 Vitamin D deficiency Active 07/25/2021 Anemia Active 07/25/2021 Hypertension Active 07/25/2021 Bilateral lower extremity edema Active 07/25/2021 Fall, initial encounter Active 08/22/2021 Dry mouth, unspecified Active 08/22/2021 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 Active 11/21/2021 Type 2 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 and gangrene, without long-term current use of insulin Active 11/23 History of fall Active 11/23/2021 Irregular heart rhythm Active 12/10/2021 Constipation Active 12/10/2021 Right leg pain Active 12/10/2021 Cyst of right breast Active 02/07/2022 Cough Active 02/07/2022 Abscess of right breast Active Tear of medial meniscus of r ight knee, current, unspecified tear type, initial encounter Active 03/11/2022 Chronic diastolic congestive heart failure Activ e 03/11/2022 Stage 3a chronic kidney disease Active 05/10/2022 Hypertensive heart and kidne y disease with chronic diastolic congestive heart failure and stage 3a chronic kidney disease Active 05/10/2022 Atherosclerosis of lower extremity Active 01/14/2024 Class 2 obesity due to exces s calories without serious comorbidity with body mass index (BMI) of 38.0 to 38.9 in adult Active Intertrigo Active 01/14/2024 Supraventricular tachycardia Active 01/29/2024 Vital Signs Date Time BP-Sys(mm[Hg] BP-Tova(mm[Hg]) HR(bpm) RR(rpm) Temp WT HT HC BMI BSA BMI Percentile O2 Sat(%) 01/13 1:49: 00 PM 98.29 4 F 205 .50 3 lbs 61. 016 in 38.8 091 kg/m 2 2.00 32 m2 01/13 1:49: 00 PM 90 {beats}/ min 16 rpm 98.29 4 F 205 .50 3 lbs 61. 016 in 38.8 091 kg/m 2 2.00 32 m2 98 % 01/13 1:49: 00 PM 122 mm[Hg] 78 mm[Hg] 90 {beats}/ min 16 rpm 98.29 4 F 205 .50 3 lbs 61. 016 in 38.8 091 kg/m 2 2.00 32 m2 98 % 2022 9:25: 00 AM 138 mm[Hg] 74 mm[Hg] 86 {beats}/ min 18 rpm 98.00 6 F 221 .12 8 lbs 61. 016 in 41.7 6 kg/m 2 2.08 m2 98 % 03/11 11:23 :00 AM 134 mm[Hg] 81 mm[Hg] 88 {beats}/ min 18 rpm 98.6 F 224 .00 4 lbs 61. 016 in 42.3 029 kg/m 2 2.09 15 m2 94 % 02/18 3:20: 00 PM 134 mm[Hg] 74 mm[Hg] 84 {beats}/ min 18 rpm 98.6 F 222 .25 3 lbs 61. 016 in 41.9 7 kg/m 2 2.08 m2 99 % 02/06 10:03 :00 AM 143 mm[Hg] 85 mm[Hg] 91 {beats}/ min 16 rpm 98.00 6 F 222 .00 3 lbs 61. 016 in 41.9 252 kg/m 2 2.08 21 m2 99 % 2021 9:07: 00 AM 129 mm[Hg] 82 mm[Hg] 78 {beats}/ min 18 rpm 97.80 8 F 224 .25 4 lbs 61. 016 in 42.3 5 kg/m 2 2.09 m2 99 % 2021 1:07: 00 PM 133 mm[Hg] 76 mm[Hg] 54 {beats}/ min 16 rpm 96.99 8 F 221 .00 3 lbs 61. 016 in 41.7 363 kg/m 2 2.07 74 m2 97 % 022 10:07 :00 AM 142 mm[Hg] 80 mm[Hg] 72 {beats}/ min 20 rpm 97.80 8 F 222 .12 8 lbs 61. 016 in 41.9 5 kg/m 2 2.08 m2 98 % 022 9:56: 00 AM 126 mm[Hg] 72 mm[Hg] 98 {beats}/ min 16 rpm 98.00 6 F 226 .50 4 lbs 61. 016 in 42.7 75 kg/m 2 2.10 31 m2 98 % Social History Name Description Comments Marital Status: Single Ambulatory Status: Independent Lives Alone Tobacco Never smoker Alcohol Never Work: Retired Children History of Procedures Date Ordered Description Order Status 01/14/2024 12:00 AM COMPREHEN METABOLIC PANEL Re turned 01/14/2024 12:00 AM VITAMIN D 25 HYDROXY Returne d 01/14/2024 12:00 AM MICROALBUMIN QUANTITATIVE Re turned 01/14/2024 12:00 AM ASSAY OF URINE CREATININE Re turned 01/14/2024 12:00 AM LIPID PANEL Returned 01/14/2024 12:00 AM ASSAY THYROID STIM HORMONE R eturned 01/14/2024 12:00 AM COMPLETE CBC W/AUTO DIFF WBC Returned 01/14/2024 12:00 AM ACUTE HEPATITIS PANEL Return ed 01/14/2024 12:00 AM ASSAY OF PARATHORMONE Return ed 01/14/2024 12:00 AM ASSAY OF NATRIURETIC PEPTIDE Returned 01/14/2024 2:23 PM GLYCOSYLATED HEMOGLOBIN TEST Reviewed 01/14/2024 2:28 PM ELECTROCARDIOGRAM COMPLETE Re viewed 01/14/2024 12:00 AM External electrocard iographic recording for more than 7 days, In-Center Only Returned 01/14/2024 4:39 PM UPR/L XTREMITY ART 2 LEVELS R eviewed 01/14/2024 12:00 AM Annual Visit (G0439) Reviewe d 07/25/2021 3:56 PM GLYCOSYLATED HEMOGLOBIN TEST Re viewed 08/22/2021 11:04 AM UPR/L XTREMITY ART 2 LEVELS Re viewed 08/22/2021 11:07 AM Diabetic foot assessment Revie wed 08/22/2021 12:00 AM Annual Visit (G0439) Reviewed 08/22/2021 12:00 AM ASSAY OF PARATHORMONE Returned 08/22/2021 12:00 AM COMPLETE CBC AUTOMATED Returne d 08/22/2021 12:00 AM COMPREHEN METABOLIC PANEL Retu rned 08/22/2021 12:00 AM VITAMIN D 25 HYDROXY Returned 08/22/2021 12:00 AM MICROALBUMIN QUANTITATIVE Retu rned 08/22/2021 12:00 AM ASSAY OF URINE CREATININE Retu rned 08/22/2021 12:00 AM LIPID PANEL Returned 08/22/2021 12:00 AM ASSAY THYROID STIM HORMONE Ret urned 08/22/2021 12:00 AM VITAMIN B-12 Returned 08/22/2021 12:00 AM ASSAY OF NATRIURETIC PEPTIDE R eturned 11/21/2021 12:00 AM Screening mammography of both breasts, two views Returned 11/21/2021 12:00 AM ROUTINE VENIPUNCTURE Reviewed 11/21/2021 12:00 AM COMPLETE CBC AUTOMATED Return ed 12/27/2021 12:00 AM GLYCOSYLATED HEMOGLOBIN TEST Reviewed 12/27/2021 12:00 AM ASSAY OF PARATHORMONE Returne d 12/27/2021 12:00 AM COMPLETE CBC AUTOMATED Return ed 12/27/2021 12:00 AM COMPREHEN METABOLIC PANEL Ret urned 12/27/2021 12:00 AM VITAMIN D 25 HYDROXY Returned 12/27/2021 12:00 AM MICROALBUMIN QUANTITATIVE Ret urned 12/27/2021 12:00 AM ASSAY OF URINE CREATININE Ret urned 12/27/2021 12:00 AM LIPID PANEL Returned 12/27/2021 12:00 AM ASSAY THYROID STIM HORMONE Re turned 12/27/2021 12:00 AM VITAMIN B-12 Returned 05/08/2022 12:00 AM Annual Visit (G0439) Reviewed 05/08/2022 12:00 AM CHRON CARE MGMT SRVC 20 MIN R eviewed 05/08/2022 12:00 AM ASSAY OF PARATHORMONE Returne d 05/08/2022 12:00 AM COMPLETE CBC AUTOMATED Return ed 05/08/2022 12:00 AM COMPREHEN METABOLIC PANEL Ret urned 05/08/2022 12:00 AM VITAMIN D 25 HYDROXY Returned 05/08/2022 12:00 AM MICROALBUMIN QUANTITATIVE Ret urned 05/08/2022 12:00 AM ASSAY OF URINE CREATININE Ret urned 05/08/2022 12:00 AM LIPID PANEL Returned 05/08/2022 12:00 AM ASSAY THYROID STIM HORMONE Re turned 05/08/2022 12:00 AM VITAMIN B-12 Returned 05/08/2022 12:00 AM ASSAY OF NATRIURETIC PEPTIDE Returned 05/08/2022 12:00 AM LIPID PANEL Returned Results Summary Date and Description Results 07/25/2021 9:57 AM BP Monitor @home Yes 07/25/2021 10:13 AM AUDIT - C 0Marijuana Use 0Drug Use/Rx Abuse 0 07/25/2021 10:17 AM SDOH - Housing Leah rns NoSDOH - Food Access Concerns (Run Out of Food Now) NoSDOH - Food Access Concerns (Ran Out of Food in Last 2 Months) NoSDOH - Medication Assistance NoSDOH - Health Literacy NoSDOH - Loneliness Score 4 07/25/2021 10:20 AM VES - 13 2 07/25/2021 10:23 AM PHQ-2 1 07/25/2021 10:23 AM PHQ-9 4 07/25/2021 10:27 AM Mini - Cog 5 07/25/2021 10:28 AM Mini - Cog 5 07/25/2021 10:28 AM Mini - Cog 5 07/25/2021 10:28 AM Mini - Cog 5 07/25/2021 10:29 AM BP Monitor @home Yes 07/25/2021 3:41 PM Hgb A1c Fr Bld 6.90 % 07/25/2021 3:56 PM Hemoglobin A1c 6.90 % 08/21/2021 2:51 PM DM Eye Exam: Result: Normal 08/22/2021 10:11 AM Pain Scale 0 08/22/2021 11:04 AM QuantaFlo Right Foot 0.840 UnitsQuantaFlo Left Foot 0.970 Units 08/22/2021 2:06 PM DM Foot Exam: Result : NormalCHOLESTEROL, TOTAL 196.0 mg/dLHDL CHOLESTEROL 41.0 mg/dLTRIGLYCERIDES 160.0 mg/dLLDL-CHOLESTEROL 127.0 mg/dLCHOL/HDLC RATIO 4.80 RatioNON HDL CHOLESTEROL 155.0 mg/dLGLUCOSE 116.0 mg/dLUREA NITROGEN (BUN) 15.0 mg/dLCREATININE 1.070 mg/dLeGFR NON-AFR. ZAMBIAN 54.0 mL/min/1.73m??eGFR 63BUN/CREATININE RATIO 14.0 (calc)SODIUM 137.0 mmol/LPOTASSIUM 4.20 mmol/LCHLORIDE 100.0 mmol/LCARBON DIOXIDE 27.0 mmol/LCALCIUM 9.60 mg/dLPROTEIN, TOTAL 8.10 g/dLALBUMIN 4.0 g/dLGLOBULIN 4.10 g/dLALBUMIN/GLOBULIN RATIO 1.0 (calc)BILIRUBIN, TOTAL 0.30 mg/dLALKALINE PHOSPHATASE 81 U/LAST 14 U/LALT 13 U/LCREATININE, RANDOM URINE 0.940 mg/mLALBUMIN, URINE 12.4ALBUMIN/CREATININE RATIO, RANDOM URINE 132WHITE BLOOD CELL COUNT 13.70 x10E3/uLRED BLOOD CELL COUNT 5.230 x10E6/uLHEMOGLOBIN 14.20 g/dLHEMATOCRIT 43.70 %MCV 83.60 fLMCH 27.20 pgMCHC 32.50 g/dLRDW 16.20 %PLATELET COUNT 307.0 x10E3/uLMPV 11.30 fLTSH 2.79VITAMIN B12 696.0 pg/mLPARATHYROID HORMONE, INTACT 29.0 pg/mLB TYPE NATRIURETIC PEPTIDE (BNP) TNP pg/mLVITAMIN D,25-OH,TOTAL,IA 52.0 ng/mL 11/21/2021 1:13 PM SDOH - Housing Leah rns NoSDOH - Food Access Concerns (Run Out of Food Now) NoSDOH - Food Access Concerns (Ran Out of Food in Last 2 Months) NoSDOH - Medication Assistance NoSDOH - Health Literacy NoSDOH - Loneliness Score 3 11/21/2021 1:14 PM SDOH - Housing Leah rns NoSDOH - Food Access Concerns (Run Out of Food Now) NoSDOH - Food Access Concerns (Ran Out of Food in Last 2 Months) NoSDOH - Medication Assistance NoSDOH - Health Literacy NoSDOH - Loneliness Score 3 11/21/2021 1:14 PM Influenza: Declined 11/21/2021 1:14 PM Pneumococcal: Declin ed 11/21/2021 1:14 PM Prevnar: Declined 11/21/2021 2:27 PM WHITE BLOOD CELL COU NT 11.40 x10E3/uLRED BLOOD CELL COUNT 4.390 x10E6/uLHEMOGLOBIN 11.80 g/dLHEMATOCRIT 36.30 %MCV 82.70 fLMCH 26.90 pgMCHC 32.50 g/dLRDW 15.40 %PLATELET COUNT 328.0 x10E3/uLMPV 11.10 fL 11/22/2021 12:28 PM SDOH - Housing Leah rns NoSDOH - Food Access Concerns (Run Out of Food Now) NoSDOH - Food Access Concerns (Ran Out of Food in Last 2 Months) NoSDOH - Medication Assistance NoSDOH - Health Literacy NoSDOH - Loneliness Score 3 11/22/2021 12:28 PM SDOH - Housing Leah rns NoSDOH - Food Access Concerns (Run Out of Food Now) NoSDOH - Food Access Concerns (Ran Out of Food in Last 2 Months) NoSDOH - Medication Assistance NoSDOH - Health Literacy NoSDOH - Loneliness Score 3 12/27/2021 4:09 PM Hgb A1c Fr Bld 6.80 % 01/09/2022 12:00 AM Mammogram: Result: B I-RADS 1 02/06/2022 10:04 AM BP Monitor @home Yes 02/06/2022 10:08 AM Prevnar: Declined 02/06/2022 10:09 AM Influenza: Declined 02/06/2022 10:27 AM CHOLESTEROL, TOTAL 1 93.0 mg/dLHDL CHOLESTEROL 43.0 mg/dLTRIGLYCERIDES 137.0 mg/dLLDL-CHOLESTEROL 125.0 mg/dLCHOL/HDLC RATIO 4.50 RatioNON HDL CHOLESTEROL 150.0 mg/dLGLUCOSE 88.0 mg/dLUREA NITROGEN (BUN) 13.0 mg/dLCREATININE 1.090 mg/dLEGFR 56.0 mL/min/1.73m??BUN/CREATININE RATIO 12.0 (calc)SODIUM 136.0 mmol/LPOTASSIUM 4.20 mmol/LCHLORIDE 100.0 mmol/LCARBON DIOXIDE 26.0 mmol/LCALCIUM 9.20 mg/dLPROTEIN, TOTAL 7.80 g/dLALBUMIN 3.90 g/dLGLOBULIN 3.90 g/dLALBUMIN/GLOBULIN RATIO 1.0 (calc)BILIRUBIN, TOTAL 0.30 mg/dLALKALINE PHOSPHATASE 63 U/LAST 16 U/LALT 11 U/LCREATININE, RANDOM URINE 0.530 mg/mLALBUMIN, URINE 4.7ALBUMIN/CREATININE RATIO, RANDOM URINE 89WHITE BLOOD CELL COUNT 11.30 x10E3/uLRED BLOOD CELL COUNT 4.310 x10E6/uLHEMOGLOBIN 11.60 g/dLHEMATOCRIT 36.90 %MCV 85.60 fLMCH 26.90 pgMCHC 31.40 g/dLRDW 15.0 %PLATELET COUNT 329.0 x10E3/uLMPV 12.10 fLTSH 2.58VITAMIN B12 643.0 pg/mLPARATHYROID HORMONE, INTACT 40.0 pg/mLVITAMIN D,25-OH,TOTAL,IA 47.0 ng/mL 02/18/2022 3:22 PM BP Monitor @home Yes 02/18/2022 3:30 PM BP Monitor @home Yes 02/18/2022 3:30 PM BP Monitor @home Yes 03/11/2022 11:30 AM BP Monitor @home Yes 03/11/2022 11:32 AM SDOH - Housing Leah rns NoSDOH - Food Access Concerns (Run Out of Food Now) NoSDOH - Food Access Concerns (Ran Out of Food in Last 2 Months) NoSDOH - Medication Assistance NoSDOH - Health Literacy NoSDOH - Loneliness Score 3 03/11/2022 11:41 AM BP Monitor @home Yes 05/08/2022 9:41 AM AUDIT - C 0Marijuana Use 0Drug Use/Rx Abuse 0 05/08/2022 9:41 AM PHQ-2 0 05/08/2022 9:46 AM BP Monitor @home Yes 05/08/2022 9:47 AM Pain Scale 0 05/08/2022 9:47 AM PHQ-2 0 05/08/2022 9:48 AM VES - 13 1 05/08/2022 9:49 AM VES - 13 1 05/08/2022 11:48 AM Hgb A1c Fr Bld 6.80 % 05/08/2022 11:49 AM CHOLESTEROL, TOTAL 1 80.0 mg/dLHDL CHOLESTEROL 43.0 mg/dLTRIGLYCERIDES 138.0 mg/dLLDL-CHOLESTEROL 111.0 mg/dLCHOL/HDLC RATIO 4.20 RatioNON HDL CHOLESTEROL 137.0 mg/dLGLUCOSE 124.0 mg/dLUREA NITROGEN (BUN) 14.0 mg/dLCREATININE 0.980 mg/dLEGFR 64.0 mL/min/1.73m??BUN/CREATININE RATIO NOT APPLICABLE (calc)SODIUM 139.0 mmol/LPOTASSIUM 4.20 mmol/LCHLORIDE 101.0 mmol/LCARBON DIOXIDE 30.0 mmol/LCALCIUM 9.80 mg/dLPROTEIN, TOTAL 7.90 g/dLALBUMIN 4.10 g/dLGLOBULIN 3.80 g/dLALBUMIN/GLOBULIN RATIO 1.10 (calc)BILIRUBIN, TOTAL 0.30 mg/dLALKALINE PHOSPHATASE 74 U/LAST 13 U/LALT 13 U/LCREATININE, RANDOM URINE 0.650 mg/mLALBUMIN, URINE 13.2ALBUMIN/CREATININE RATIO, RANDOM URINE 203WHITE BLOOD CELL COUNT 12.20 x10E3/uLRED BLOOD CELL COUNT 4.280 x10E6/uLHEMOGLOBIN 11.70 g/dLHEMATOCRIT 36.90 %MCV 86.20 fLMCH 27.30 pgMCHC 31.70 g/dLRDW 15.0 %PLATELET COUNT 327.0 x10E3/uLMPV 11.30 fLTSH 3.75VITAMIN B12 548.0 pg/mLPARATHYROID HORMONE, INTACT 51.0 pg/mLB TYPE NATRIURETIC PEPTIDE (BNP) 57.0 pg/mLVITAMIN D,25-OH,TOTAL,IA 39.0 ng/mL 05/08/2022 12:40 PM SLUMS: 25 05/08/2022 12:[address] [facility] Rejected/Declined: DECL 01/14/2024 12:00 AM Lower Extremity Exam : PAD Neg Symptoms / Neg Exam 01/14/2024 1:56 PM BP Monitor @home Yes 01/14/2024 1:57 PM Pain Scale 0 01/14/2024 2:01 PM PHQ-2 0 01/14/2024 2:23 PM Hemoglobin A1c 5.90 % 01/14/2024 3:19 PM HEPATITIS A IGM NON- REACTIVEHEPATITIS B SURFACE ANTIGEN NON-REACTIVEHEPATITIS B CORE ANTIBODY (IGM) NON-REACTIVEHEPATITIS C ANTIBODY NON-REACTIVECHOLESTEROL, TOTAL 194.0 mg/dLHDL CHOLESTEROL 48.0 mg/dLTRIGLYCERIDES 171.0 mg/dLLDL-CHOLESTEROL 117.0 mg/dLCHOL/HDLC RATIO 4.0 RatioNON HDL CHOLESTEROL 146.0 mg/dLGLUCOSE 102.0 mg/dLUREA NITROGEN (BUN) 17.0 mg/dLCREATININE 1.160 mg/dLEGFR 52.0 mL/min/1.73m??BUN/CREATININE RATIO 15.0 (calc)SODIUM 145.0 mmol/LPOTASSIUM 4.60 mmol/LCHLORIDE 101.0 mmol/LCARBON DIOXIDE 33.0 mmol/LCALCIUM 9.60 mg/dLPROTEIN, TOTAL 7.80 g/dLALBUMIN 4.0 g/dLGLOBULIN 3.80 g/dLALBUMIN/GLOBULIN RATIO 1.10 (calc)BILIRUBIN, TOTAL 0.30 mg/dLALKALINE PHOSPHATASE 81 IU/LAST 14 IU/LALT 12 IU/LCREATININE, RANDOM URINE 0.570 mg/mLALBUMIN, URINE 8.3ALBUMIN/CREATININE RATIO, RANDOM URINE 146WHITE BLOOD CELL COUNT 11.10 x10E3/uLRED BLOOD CELL COUNT 4.850 x10E6/uLHEMOGLOBIN 13.30 g/dLHEMATOCRIT 42.10 %MCV 86.80 fLMCH 27.40 pgMCHC 31.60 g/dLRDW 15.80 %PLATELET COUNT 286.0 x10E3/uLMPV 11.50 fLABSOLUTE NEUTROPHILS 6161 x10E3/uLABSOLUTE LYMPHOCYTES 4174 x10E3/uLABSOLUTE MONOCYTES 566 x10E3/uLABSOLUTE EOSINOPHILS 133 x10E3/uLABSOLUTE BASOPHILS 67 x10E3/uLNEUTROPHILS 55.50 %LYMPHOCYTES 37.60 %MONOCYTES 5.10 %EOSINOPHILS 1.20 %BASOPHILS 0.60 %TSH 2.17PARATHYROID HORMONE, INTACT 51.0 pg/mLB TYPE NATRIURETIC PEPTIDE (BNP) 107.0 pg/mLVITAMIN D,25-OH,TOTAL,IA 90.0 ng/mL 01/14/2024 4:39 PM QuantaFlo Right Foot 1.720 UnitsQuantaFlo Left Foot 0.760 Units 01/22/2024 12:19 AM Preliminary Findings Patient had a min HR of 54 bpm, max HR of 211 bpm,Heart rate minimum 54Heart rate maximum 211Heart rate (average) 79Ventricular tachycardia - number of episodes 5Ventricular tachycardia - heart rate minimum 88Ventricular tachycardia - heart rate maximum 211Ventricular tachycardia - heart rate (average) 146Longest ventricular tachycardia episode [id number] ventricular tachycardia episode - duration 5.5Longest ventricular tachycardia episode - number of beats 15Longest ventricular tachycardia episode - heart rate minimum 124Longest ventricular tachycardia episode - heart rate maximum 188Longest ventricular tachycardia episode - heart rate (average) 170Ventricular tachycardia with fastest heart rate [id number] tachycardia with fastest heart rate - duration 3.1Ventricular tachycardia with fastest heart rate - number of beats 8Ventricular tachycardia with fastest heart rate - heart rate minimum 88Ventricular tachycardia with fastest heart rate - heart rate maximum 211Ventricular tachycardia with fastest heart rate - heart rate (average) 178Supraventricular tachycardia - number of episodes 2Supraventricular tachycardia - heart rate minimum 86.0 {beats}/minSupraventricular tachycardia - heart rate maximum 133.0 {beats}/minSupraventricular tachycardia - heart rate (average) 117.0 {beats}/minLongest supraventricular tachycardia episode [id number] supraventricular tachycardia episode - duration 8.10 secsLongest supraventricular tachycardia episode - number of beats 14Longest supraventricular tachycardia episode - heart rate minimum 86.0 {beats}/minLongest supraventricular tachycardia episode - heart rate maximum 132.0 {beats}/minLongest supraventricular tachycardia episode - heart rate (average) 107.0 {beats}/minSupraventricular tachycardia with fastest heart rate [id number] tachycardia with fastest heart rate - duration 3.8Supraventricular tachycardia with fastest heart rate - number of beats 8Supraventricular tachycardia with fastest heart rate - heart rate minimum 120.0 {beats}/minSupraventricular tachycardia with fastest heart rate - heart rate maximum 133.0 {beats}/minSupraventricular tachycardia with fastest heart rate - heart rate (average) 126.0 {beats}/minLongest bigeminy [id number] bigeminy - duration 3.90 sIsolated SVE frequency RareIsolated SVE count 788Isolated VE Frequency RareIsolated VE Counts 479VE Couplets Frequency RareVE Couplets Counts 6VE Triplets Frequency RareVE Triplets Counts 9Enrollment Period Start [id number] Period End [id number] History Of Immunizations Name Date Admin Mfg Name Mfg Code Trade Name Lot# Route Inj Vis Given Vis Pub CVX View Only J&J COVID 05/26/2020 Not Entered NE Not Entered Not Entered Not Entered 2 001 212 View Only J&J COVID 03/03/20 21 Not Entered NE Not Entered Not Entered Not Entered 2 001 212 Influenza 2 sanofi pasteur PMC FLUZONE Not Entered Not Entered 022 001 158 Prevnar 13 03/03/20 21 Not Entered NE PREVNAR 13 Not Entered Not Entered 1 001 133 Pneumovax 03/15/20 20 Not Entered NE Not Entered Not Entered Not Entered 020 001 33 View Only Pfiz COVID 2 Not Entered NE Not Entered Not Entered Not Entered 1 001 208 History of Past Illness Name Date of Onset Comments HBP (high blood pressure) 07/25/2021 09:59:12 Anemia 07/25/2021 10:02:10 Diabetes (Type II) 07/25/2021 10:08:49 Class 3 severe obesity due t o excess calories with serious comorbidity and body mass index (BMI) of 40.0 to 44.9 in adult 07/25/2021 07/25/2021-Per Vitals: BMI 42.77-Comorbidities of HLD, HTN, Anemia, and DMII.-Encouraged pt to walk 30 minutes a day 4-5 times a week as tolerated.-Provided CHF diet education materials and encouraged reducing carb intake-Will f/u at next visit. History of lumpectomy of lef t breast 07/25/2021 07/25/2021-Per HPI: Pt repor ts Lumpectomy of L [id number] request records and f/u History of breast biopsy 07/25/2021 022-Per HPI: Pt reports biopsy of R Breast in 2004-Will request records and f/u Murmur, cardiac 07/25/2021 07/25/2021-Per H PI: Pt reports dx.-Per PE: Not audible upon heart auscultation-Will request records and f/u HLD (hyperlipidemia) 07/25/2021 07/25/2021- Per HPI: Pt reports dx.-Manages with Atorvastatin 20 mg once daily-Will draw lipid panel at next visit-Will request records and f/u Sleep apnea 07/25/2021 07/25/2021-Per H PI: Pt reports use of an APAP-Will request records and f/u Vitamin D deficiency 07/25/2021 07/25/2021- Per HPI: Pt reports dx.-Manages with Vitamin D supplements.-Will draw labs at next visit-Will f/u Anemia 07/25/2021 07/25/2021-Per H PI: Pt reports dx. Pt utilizes Ferrous Sulfate but she does not take it d/t constipation. Pt reports being followed by hematology/oncology for anemia.-Encourage pt to take stool softeners and increase water intake to alleviate constipation.-Will draw labs at next visit-Will request records and f/u Bilateral lower extremity edema 07/25/2021 07/25/2021-Per PE: Trace B/L LE edema-Advised pt to elevate legs when resting-Provided compression stockings and instructed pt on use.-Will collect labs at next visit-Will request records and f/u Fall, initial encounter 08/22/2021 08/23/19 22-Per HPI:Pt fell outside of facility, around 11:30 AM, while going out to her car to retrieve some records from a eye doctor visit. Pt tripped on curb and fell impacting her face and R knee.-Per PE: Nasal bridge bruising and swollen. R knee swollen.-Brought pt inside to rest and ice injured sites.-Purchased food and drink.-Ordered X-ray exams for head and knee at [facility].-Arranged transportation for pt to reach facility.-Will request records and f/u. Dry mouth, unspecified 08/22/2021 2-Per HPI: Pt c/o dry mouth. Reports drinking 2-3 glasses of water a day.-Encouraged pt to increase water intake to 4-5 glasses a day.-Will f/u at next visit. Combined hyperlipidemia associated with type 2 diabetes mellitus 11/21/2021 11/21/2021- DMII-HLD. Type 2 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 and gangrene, without long-term current use of insulin 11/23/2021 11/21/2021- dmii-PAD - See DMII-HLD. History of fall 11/23/2021 11/21/2021 Irregular heart rhythm 12/10/2021 2- Per PE: Irregular heart rhythm present. - Continue Anti-hypertensive medications - CTM. Constipation 12/10/2021 11/21/2021- Joy ged w/Dulcolax w/minimal relief. - Provided Linzess sample today- Increase water intake and fiber. - CTM Right leg pain 12/10/2021 11/21/2021- Per pt---c/o pain - Per PE: 1+ R LE edema present. - Wear compression and elevate LE. - CTM Cyst of right breast 02/07/2022 02/06/2022- R breast-General surgery referral created today- for I&D-Encouraged warm compress-Will monitor Cough 02/07/2022 02/06/2022-Patie nt reports a lingering cough-Chest xr ordered-Will monitor Abscess of right breast 02/28/2022 Tear of medial meniscus of right knee, current, unspecified tear type, initial encounter 03/11/2022 03/11/2022- Chronic- per MRI results 09/12: Questionable nondisplaced tear of the right medial meniscus, posterior horn, Severe medial compartment chondrosis.- Continue tramadol 50 mg tablet- Pt follows with ortho @[facility], Next appt 03/21/22 - Will request records and f/u at next visit. - CTM Chronic diastolic congestive heart failure 03/11/2022 03/11/2022- Chronic - Per PE : B/L LE 1+ PITTING EDEMA PRESENT. - BNP: TNP, Will obtain at f/u - Echo(10/12): The left ventricle is normal in size. There is normal left ventricular wall thickness. Left ventricular systolic function is normal. The left ventricular wall motion is normal. Ejection Fraction = 55-60%. The right ventricular systolic function is normal. There is trace mitral regurgitation. Grade I diastolic dysfunction, (abnormal relaxation pattern). - Currently managed with : amlodipine 10 mg tablet, hydrochlorothiazide 12.5 mg tablet- Advise pt to continue wearing compression socks and elevating b/l LE. - Advised pt to decrease sodium intake, and increase water intake- Advised increased cardiovascular exercise as tolerated - Advised to begin recording BP daily at home, bring log to next visit - Will f/u and monitor Stage 3a chronic kidney disease 05/10/2022 05/08/22- Chronic - Labs ( 02/12 ): GFR _56_, Cr_1.090_; ? Discussed results w/ pt today? , labs obtained again 05/08/22. - Continue to work to achieve targets with A1c, Blood pressure- Continue to monitor, renal dose medications as needed and avoid nephrotoxic agents- continue HTN meds: amlodipine 10 mg tablet, hydrochlorothiazide 12.5 mg tablet, and losartan 100 mg tablet - Will f/u and monitor Hypertensive heart and kidne y disease with chronic diastolic congestive heart failure and stage 3a chronic kidney disease 05/10/2022 Atherosclerosis of lower extremity 01/14/2024 Class 2 obesity due to exces s calories without serious comorbidity with body mass index (BMI) of 38.0 to 38.9 in adult 01/14/2024 01/14/2024 - chronic- 2022: weight 206lbs ; BMI 38.81- Comorbidities: HTN, HLD, CHF, CKD- encouraged to follow healthy diet an exercises- will f/u and ctm Intertrigo 01/14/2024 01/14/2024 - chr onic- pt reported chaffing and moisture in the buttock area by wearing pads- advised pt to take break from wearing pads- currently managed with Triamcinolone Topical 0.025% cream, apply on the affected are prn- will f/u and ctm Supraventricular tachycardia 01/29/20244 (amended to add)- chronic- per Zio results 01/14/2024 to 01/18/2024: 'Supraventricular tachycardia 4 beats or more'.- will encouraged the pt to f/u with cardiology- will f/u and ctm Bilateral lower extremity edema Jul 25 2021 10:33 AM Hypertension Jul 25 2021 10:33AM Diabetes mellitus Jul 25 2021 10:33AM Anemia Jul 25 2021 10:33AM Vitamin D deficiency Jul 25 2021 10:33AM Sleep apnea Jul 25 2021 10:33AM HLD (hyperlipidemia) Jul 25 2021 10:33AM Murmur, cardiac Jul 25 2021 10:33AM History of breast biopsy Jul 25 2021 10:33AM History of lumpectomy of lef t breast Jul 25 2021 10:33AM Morbid (severe) obesity due to excess calories Jul 25 2021 10:33AM Body mass index [BMI] 40.0-44.9, adult Jul 25 2021 10:33AM Anemia Aug 07 2021 12:50PM Encounter for annual general medical examination with abnormal findings in adult Aug 22 2021 10:28AM Encounter for drug therapy Aug 22 2021 10:28AM Fall, initial encounter Aug 22 2021 10:28AM Fall, initial encounter Aug 22 2021 12:20PM Fall, initial encounter Aug 22 2021 12:20PM Bilateral lower extremity edema Aug 22 2021 10:28 AM Hypertension Aug 22 2021 10:28AM Dry mouth, unspecified Aug 22 2021 10:28AM PAD (peripheral artery disease) Aug 22 2021 10:28 AM Diabetes mellitus Aug 22 2021 10:28AM DEXA (postmenopausal state) Aug 22 2021 2:16PM Bilateral lower extremity edema Aug 22 2021 2:16P M Murmur, cardiac Aug 22 2021 2:16PM Hypertension Aug 22 2021 2:16PM Fall, initial encounter Sep 04 2021 10:18AM Knee pain Sep 04 2021 10:18AM Right knee pain, unspecified chronicity Sep 04 2021 11:04AM Right ankle pain Sep 04 2021 11:04AM Fall, initial encounter Sep 04 2021 11:04AM Hypertension Nov 21 2021 1:50PM Colonoscopy (referral needed) Nov 21 2021 1:50PM Screening mammogram Nov 21 2021 1:50PM Anemia Nov 21 2021 1:15PM Bilateral lower extremity edema Nov 21 2021 1:15 PM Morbid (severe) obesity due to excess calories Nov 21 2021 1:15PM Body mass index [BMI] 40.0-44.9, adult Nov 21 2021 1:15PM HLD (hyperlipidemia) Nov 21 2021 1:15PM PAD (peripheral artery disease) Nov 21 2021 1:15 PM Sleep apnea Nov 21 2021 1:15PM Type 2 diabetes mellitus wit h other specified complication Nov 21 2021 1:15PM Mixed hyperlipidemia Nov 21 2021 1:15PM Hypertensive heart disease w ith heart failure Nov 21 2021 1:15PM CHF (congestive heart failure) Nov 21 2021 1:15P M History of fall Nov 21 2021 1:15PM 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 Nov 21 2021 1:15PM Irregular heart rhythm Nov 21 2021 1:15PM Constipation Nov 21 2021 1:15PM Right leg pain Nov 21 2021 1:15PM Type 2 diabetes mellitus wit h other specified complication Dec 27 2021 9:16AM Mixed hyperlipidemia Dec 27 2021 9:16AM HLD (hyperlipidemia) Dec 27 2021 9:16AM Hypertensive heart disease w ith heart failure Dec 27 2021 9:16AM Type 2 diabetes mellitus wit h other specified complication Dec 27 2021 9:24AM Mixed hyperlipidemia Dec 27 2021 9:24AM Hypertension Dec 27 2021 9:24AM Encounter for drug therapy Dec 27 2021 9:24AM Colonoscopy (referral needed) Dec 27 2021 9:38AM Morbid (severe) obesity due to excess calories Dec 27 2021 9:16AM Body mass index [BMI] 40.0-44.9, adult Dec 27 2021 9:16AM Screening mammogram Dec 27 2021 9:51AM History of fall Dec 27 2021 9:16AM Sleep apnea Dec 27 2021 9:16AM Fall, initial encounter Feb 06 2022 11:06AM Right leg pain Feb 06 2022 11:06AM Cough Feb 06 2022 11:06AM Right leg pain Feb 06 2022 11:09AM Cyst, breast, right Feb 06 2022 11:14AM History of fall Feb 06 2022 10:10AM Cough Feb 06 2022 10:10AM Right knee pain Feb 06 2022 10:10AM Left knee pain Feb 06 2022 10:10AM Abscess of right breast Feb 06 2022 10:10AM Swelling of right lower extremity Feb 06 2022 10:10AM Abscess of right breast Feb 15 2022 8:56AM Sleep apnea Feb 18 2022 3:34PM Abscess of right breast Feb 18 2022 3:34PM Bilateral lower extremity edema Feb 18 2022 3:34 PM Morbid (severe) obesity due to excess calories Feb 18 2022 3:34PM Body mass index [BMI] 40.0-44.9, adult Feb 18 2022 3:34PM Stage 3b chronic kidney disease Feb 18 2022 3:34 PM Right knee pain Feb 18 2022 3:34PM Right knee pain Mar 05 2022 4:46PM Meniscal injury Mar 05 2022 4:46PM DEXA (postmenopausal state) Mar 11 2022 12:02PM Right leg pain Mar 11 2022 12:02PM Chronic diastolic (congestiv e) heart failure Mar 11 2022 11:41AM Hypertensive heart disease w ith heart failure Mar 11 2022 11:41AM Chronic diastolic (congestiv e) heart failure Mar 11 2022 11:41AM Tear of medial meniscus of right knee, current, unspecified tear type, initial encounter Mar 11 2022 11:41AM Abscess of right breast Mar 11 2022 11:41AM Bilateral lower extremity edema Mar 11 2022 11:4 1AM Morbid (severe) obesity due to excess calories Mar 11 2022 11:41AM Body mass index [BMI] 40.0-44.9, adult Mar 11 2022 11:41AM History of lumpectomy of lef t breast Mar 11 2022 11:41AM Cyst of right breast Mar 11 2022 11:41AM History of breast biopsy Mar 11 2022 11:41AM Cyst of right breast Mar 12 2022 10:26AM Knee pain Mar 15 2022 1:01PM Knee pain Mar 15 2022 1:03PM Right knee pain Mar 29 2022 11:36AM Type 2 diabetes mellitus wit h other specified complication May 01 2022 8:58AM R/O Swelling of right lower eyelid May 01 2022 8:58AM Lymphedema due to trauma May 01 2022 10:17AM Swelling of right lower extremity May 01 2022 10:36AM Bilateral lower extremity edema May 01 2022 10:36 AM Lymphedema due to trauma May 01 2022 10:36AM Lymphedema due to trauma May 013 11:09AM Bilateral lower extremity edema Feb 2022 11:09 AM Encounter for annual general medical examination with abnormal findings in adult Feb 2022 10:00AM Encounter for drug therapy Feb 2022 10:00AM Encounter for screening for lipoid disorders Feb 2022 10:00AM Encounter for screening for cardiovascular disorders Feb 2022 10:00AM Chronic diastolic (congestiv e) heart failure Feb 2022 10:00AM 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 Feb 2022 10:25AM Lymphedema of extremity Feb 2022 10:34AM HLD (hyperlipidemia) Feb 2022 10:00AM Stage 3a chronic kidney disease Feb 2022 10:0 0AM Tear of medial meniscus of right knee, current, unspecified tear type, initial encounter Feb 2022 10:00AM 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 Feb 2022 10:00AM Vitamin D deficiency Feb 2022 10:00AM Hypertensive heart and chron ic kidney disease with heart failure and stage 1 through stage 4 chronic kidney disease, or unspecified chronic kidney disease Feb 2022 10:00AM Chronic diastolic (congestiv e) heart failure Feb 2022 10:00AM Chronic kidney disease, stag e 3a Feb 2022 10:00AM Bilateral lower extremity edema Feb 2022 10:0 0AM Morbid (severe) obesity due to excess calories Feb 2022 10:00AM Body mass index [BMI] 40.0-44.9, adult b 2022 10:00AM Type 2 diabetes mellitus wit h other specified complication Feb 2022 10:00AM Mixed hyperlipidemia Feb 2022 10:00AM Sleep apnea Feb 2022 10:00AM Anemia Jan 14 2024 8:46AM Chronic diastolic (congestiv e) heart failure Jan 14 2024 8:46AM Type 2 diabetes mellitus wit h other specified complication Jan 14 2024 8:46AM Mixed hyperlipidemia Jan 14 2024 8:46AM HLD (hyperlipidemia) Jan 14 2024 8:46AM Hypertensive heart and chron ic kidney disease with heart failure and stage 1 through stage 4 chronic kidney disease, or unspecified chronic kidney disease Jan 14 2024 8:46AM Chronic diastolic (congestiv e) heart failure Jan 14 2024 8:46AM Chronic kidney disease, stag e 3a Jan 14 2024 8:46AM Stage 3a chronic kidney disease Jan 14 2024 8:46 AM Vitamin D deficiency Jan 14 2024 8:46AM Encounter for drug therapy Jan 14 2024 8:46AM Encounter for other specifie d special examinations Jan 14 2024 8:46AM Hypertension Jan 14 2024 2:02PM Hypertension Jan 14 2024 2:22PM Murmur, cardiac Jan 14 2024 2:23PM Encounter for annual general medical examination with abnormal findings in adult Jan 14 2024 2:23PM Hypertensive heart and chron ic kidney disease with heart failure and stage 1 through stage 4 chronic kidney disease, or unspecified chronic kidney disease Jan 14 2024 2:36PM Chronic diastolic (congestiv e) heart failure Jan 14 2024 2:36PM Chronic kidney disease, stag e 3a Jan 14 2024 2:36PM Chronic diastolic (congestiv e) heart failure Jan 14 2024 2:23PM Type 2 diabetes mellitus wit h other specified complication Jan 14 2024 2:23PM Mixed hyperlipidemia Jan 14 2024 2:23PM Hypertensive heart and chron ic kidney disease with heart failure and stage 1 through stage 4 chronic kidney disease, or unspecified chronic kidney disease Jan 14 2024 2:23PM Chronic diastolic (congestiv e) heart failure Jan 14 2024 2:23PM Chronic kidney disease, stag e 3a Jan 14 2024 2:23PM Stage 3a chronic kidney disease Jan 14 2024 2:23 PM 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) - [id number] Saturday, 2022 [place] [id number] N/A [facility]) - [id number] [id number] February Medicare - [place] Medicare Part B - [facility] [id number] N/A [facility]) - G2315 [id number] Wednesday, 2021 [facility] ([facility]) - [id number] [id number] Friday History of Encounters Visit Date Visit Type Provider 2024 In Office Visit Visits Prakash Murphy Ot her 01/14/2024 In Office Visit Amina Mccray [employer]AG[employer] WORKER 05/08/2022 In Office Visit Amina Mccray PROPAGATION WORKER 03/11/2022 In Office Visit Amina Mccray PROPAGATION WORKER 02/18/2022 In Office Visit Amina Mccray PROPAGATION WORKER 02/06/2022 In Office Visit Amina Mccray NP 12/27/2021 In Office Visit Amarilis tang NP 11/21/2021 In Office Visit Amina Mccray NP 08/22/2021 In Office Visit Alesia wise MD 07/25/2021 In Office Visit Alesia wise MD
--- OUTSIDE RECORDS SUMMARY | 2024-03-23 01:46 | XMS_ITS ---
Author Organization 1 OF Agusto schumacher [facility] Address [address] [facility] [address] [place] [address] Care Team Providers Care Chief Console Operator Name Role Phone Fidencio French MD Primary Care Provider Unavail able Aponte Tammy Unavailable [phone] Allergies No Known Allergies REASON FOR VISIT DFC (Diabetic foot care) Medications Medication SIG (Take, Route, Fr equency, Duration) Notes Start Date End Date Status Trulicity Active Farxiga Active Losartan Potassium A ctive amLODIPine Besylate Active Atorvastatin Calcium Active Calcitriol Active Vitamin D Active Vital Signs Height 62 in 11/10/2023 Weight 196 lbs 11/10/2023 BMI 35.84 kg/m2 11/10/2023 Encounters Encounter Location Date Provider Diagnosis 1 OF Agusto Choudhury [facility] [address] [place] [address] 11/10/2023 Tammy Fadi Onychodystrophy L60. 3 ; Type 2 diabetes mellitus with other diabetic neurological complication E11.49 and Callus L84 Assessments Encounter Date Diagnosis (ICD Code) Assessment Notes Treatment Notes Treatment Clinical Notes Section Notes 11/10/2023 Onychodystrophy (ICD-10 - L60.3) 11/10/2023 Type 2 diabetes mellitus with other diabetic neurological complication (ICD-10 - E11.49) Considering the associated comorbidities and physical exam findings today, this patient is at substantial risk of developing serious foot complications in the absence of regular and professional palliative foot care. 11/10/2023 Callus (ICD-10 - L84) Plan Of Treatment Treatment Notes Assessment Notes Type 2 diabetes mellitus wit h other diabetic neurological complication Considering the associated comorbidities and physical exam findings today, this patient is at substantial risk of developing serious foot complications in the absence of regular and professional palliative foot care. Next Appt Details Follow Up: 10-12 weeks or co ntact office PRN with any concerns, Reason: Provider Name:Tammy Tannera, 04/01/2024 10:40:00 AM, [address], [address], [place], [address], Procedure Notes * Category Sub-Category Detail Notes PALLIATIVE FOOT CARE: Callus paring: ([id number]) Si ngle callus as noted above reduced with a sterile scalpel blade, Dystrophic nail trim (G0127) All dystrop hic nails reduced in length and thickness with curettage of debris from nail margins as needed Progress Notes * KIRTI DaniellehDOB:1955 (68 yo F)Acc No.[id number]:11/10/2023 Progress Note Patient:?Lindsay PEDERSEN Provider:?Tammy Aponte DPM :1955???Age:68 Y???Sex:Female D ate:11/10/2023 Address:[address] [place], [place] [id number] Pcp:Fidencio French MD Subjective: * Chief Complaints: * ???DFC (Diabetic foot care) * HPI: ???MA assisting with visit::?HPI/Rooming:?[place].?Primary reason for visit::?Diabetic Foot Care: ?68 y/o diabetic female RTO for diabetic foot care. Patient reports no acute issues with nails or calluses today. Reports last HA1c of 6.8.? * ROS:?* MULTI-SYSTEM REVIEW::?Nausea, fever or chillls?denies.?Currently dealing with infection, flu or open wound: ?denies.?Any change in medications since last visit?? admits.?Any changes in medical history/hospitalizations??denies.? * Medical History:? * Surgical History:?RT TKR 2023 * Hospitalization/Major Diagno stic Procedure:? * Family History:? Diabetes. * Medications:?TakingCalcitrio l Vitamin D Farxiga Losartan Potassium amLODIPine Besylate Atorvastatin Calcium Trulicity Taking Calcitriol Taking Vitamin D Taking Farxiga Taking Losartan Potassium Taking amLODIPine Besylate Taking Atorvastatin Calcium Taking Trulicity DiscontinuedoxyCODONE ER Medication List reviewed and reconciled with the patientDiscontinued oxyCODONE ER Medication List reviewed and reconciled with the patient * Allergies:?N.K.D.A.no[Allerg ies Verified] Objective: * Vitals:?Wt:196lbs, Wt-k .9 kg, Ht:62in, BMI:35.84Index. * Examination: ???General Examination: ?Constitutional / Appearance: ?No acute distress , Well nourished, Appropriate personal hygiene.?Mental status: ?Cooperative, Oriented to person, place and time, Mood and affect: normal, Judgement and intellect: normal with appropriate response to questions.?Ambulatory assistive device: ?cane.?Shoes today:?sandals.?Lower Extremity VASCULAR: : ?Pulses:?DP pulse diminished b/l , PT pulse diminished b/l.?Temperature gradient: ?relatively warm from proximal to distal, bilateral.?Pedal hair: ?sparse, bilateral.?Venous insufficiency edema:?Mild edema noted to the right lower leg..?Capillary refill at distal toes? less than 3 seconds, bilateral.?Lower Extremity DERM: : ?Skin: ?no suspicious lesions, no open sores, without interdigital maceration, bilateral.?Nails:?Nails appear elongated and dystrophic with abnormal shape, periungual debris, subungual hyperkeratosis..?Hyperkeratotic lesions LEFT foot: ?no significant hpk lesions noted.?Hyperkeratotic lesions RIGHT foot: ?medial hallux IPJ.?Lower Extremity [...] nodules noted. Adequate ROM noted to the joints.?.? Assessment: * Assessment: 1.?Onychodystrophy - L60.3?? ?2.?Type 2 diabetes mellitus with other diabetic neurological complication - E11.49 (Primary)???3.?Callus - L84??? Plan: * Treatment: * Procedures:?PALLIATIVE FOOT CARE::?Callus paring: ?([id number]) Single callus as noted above reduced with a sterile scalpel blade,.?Dystrophic nail trim (G0127)?All dystrophic nails reduced in length and thickness with curettage of debris from nail margins as needed.? * Procedure Codes:?35627 TRIM SKIN [id number] TRIMMING DYSTROPHIC NAILS ANY #, Modifiers: 59 * Preventive Medicine:? ??Screenings:?FALL RISK SCREENING?Fall Risk Assessment:?One fall without injury in the past year * Follow Up:?10-12 weeks or co ntact office PRN with any concerns * Images: * Sign off status: Completed true * Provider:?Tammy Aponte DPM Date:?2023 Generated for Alisa burns/[place]/Joy on:?03/23/2024 01:46 AM [employer] History and Physical Notes * HPI (History of Present Illness) Category Sub-Category Detail Notes Category Not es Primary reason for visit: Diabetic Foot Care: 68 y/o diabetic female RTO for diabetic foot care. Patient reports no acute issues with nails or calluses today.Reports last HA1c of 6.8 MA assisting with visit: HPI/Rooming: [place] Examination Category Sub-Category Detail Notes Category Not es General Examination Mental status: Cooperative, Oriented to person, place and time, Mood and affect: normal, Judgement and intellect: normal with appropriate response to questions Shoes today: sandals Ambulatory assistive device: cane Constitutional / Appearance: No acute di stress , Well nourished, Appropriate personal hygiene Lower Extremity VASCULAR: Venous insufficiency e milka: Mild edema noted to the right lower leg. Pulses: DP pulse diminished b/l , PT [...] planus foot type with decreased medial arch Left lower extremity inspect ion and palpation: [...] debris, subungual hyperkeratosis. Hyperkeratotic lesions LEFT foot: no sig nificant hpk lesions noted Hyperkeratotic lesions RIGHT foot: media l hallux IPJ
--- OUTSIDE RECORDS SUMMARY | 2024-03-23 01:47 | XMS_ITS | Continuity of Care Document ---
Author Organization [facility] Address [address] [place] [address] [id number] [place] [address]- Encounter 07/03/23 - 07/07/23 [facility] [address] [facility] [id number] [place] [address]- Discharge Disposition: Home with Home Health Care Attending Physician: Robb Lr MD Allergies, Adverse Reactions, Alerts Substance Criticality Severity Reaction Reaction Severity Status Shrimp Swelling Active Assessment and Plan Extracted from: Title:home CPAP Author:Kirti Mcintyre RT Date: home CPAP not in use Extracted from: Title:Clinical Document Author:Mary Lou Soto ate:07/06/23 Patient noncompliant with PA P last night. Extracted from: Title:Clinical Document Author:Mary Lou Soto ate:07/05/23 Patient compliant with PAP l ast night. Extracted from: Title:Nutrition follow-up note Author:Frieda Ramirez musa Atwood. RD Date:07/04/23 68-year-old female post tota l knee arthroplasty on 07/01/23. Stated her appetite is good and she does not have any chewing, swallowing, or oral health problems. Has been constipated recently. Cooks a little at home and also gets ? Meals on Wheels.? Has been trying to follow a diabetic diet. Checks blood sugars in the morning. Current weight is her normal weight. Nutrition-knowledge deficit related to eating as a diabetic as evidenced by patient interview. Patient to take steps after discharge to make food choices to better manage her diabetes. Educated patient on how to follow a diabetic diet with the ? ADA Diabetic Diet? handout. ? ? Fill half of your plate with non-starchy vegetables, such as spinach, carrots and tomatoes. ? ? Fill a quarter of your plate with a protein, such as tuna, lean pork or chicken. ? ? Fill the last quarter with a whole-grain item, such as brown rice, or a starchy vegetable, such as green peas. ? ? Include good fats such as nuts or avocados in small amounts. ? ? Add a serving of fruit or dairy and a drink of water or unsweetened tea or coffee. Extracted from: Title:Nutrition Evaluation Author:Daren Ramirez RD Date:07/04/23 PATIENT NAME: Lindsay Pedersen AGE: 68 GENDER: Female HEIGHT: 5? 3? WEIGHT: 213lbs (97kgs) IBW:??115lbs (52kgs)??; adjusted weight = 70kgs BMI: 38 BMI CLASSIFICATION: Obese Medical hx: T2DM, CKD Stage 3, HTN Weight history:??Current weight is her normal weight. Alvarado score:??18 Pertinent labs: 07/02/23 Na+135, K+4.5, Cl-101, BUN 18, Cr 1.33 (anl), Glu 121, eGFR 44 (bnl) Pertinent meds??: amlodipine, apixaban, atorvastatin, dapagliflozin, losartan, oxycodone, semaglutide Current diet order: Diabetic Current intakes: 100% Fluid intake last 24 hours: 610mL Est. energy needs: 1750kcals Estimated protein needs: 84 grams Estimated fluid needs: 1750mL Subjective Information: 68-year-old female post total knee arthroplasty on 07/01/23. Stated her appetite is good and she does not have any chewing, swallowing, or oral health problems. Has been constipated recently. Cooks a little at home and also gets ? Meals on Wheels.? Has been trying to follow a diabetic diet. Checks blood sugars in the morning. Current weight is her normal weight. Malnutrition present? No (MNA score = 12) PES: Nutrition-knowledge deficit related to eating as a diabetic as evidenced by patient interview. Nutrition Goals: Patient to take steps after discharge to make food choices to better manage her diabetes. Intervention: Educated patient on how to follow a diabetic diet with the ? ADA Diabetic Diet? handout. Assessment completed by: Daren aRmirez RDN, JACQUESN Extracted from: Title:Clinical Document Author:Sean Hernandez Pharmacist Date:07/04/23 Pharmacy Progress Note Based upon the information available at the time of the review, and assuming the accuracy and completeness of such information, it is my professional judgement that at such time, the resident? s medication regimen contained no new irregularities. Functional Status 07/07/23 Affect/Behavior Appropriate, Calm, Cooperative 07/03/23 Recent Travel History No recent travel Family Member Travel History No recent t ravel Immunizations Given and Recorded Vaccine Date Status Refusal Reason tuberculin purified protein derivative 07/04/23 Gi smiley Medications amLODIPine 10 mg oral tablet = 1 tab(s), Oral, Daily, 0 Refill(s), Indication: HTN Start Date: 07/07/23 Status: Ordered apixaban 2.5 mg oral tablet = 1 tab(s), Oral, BID, 0 Refill(s), Indication: anticoagulant Start Date: 07/07/23 Status: Ordered atorvastatin 20 mg oral tablet = 1 tab(s), Oral, Daily, 0 Refill(s), Indication: HLD Start Date: 07/07/23 Status: Ordered calcitriol 0.25 mcg oral capsule = 1 cap(s), Oral, Daily, 0 Refill(s), Indication: supplement Start Date: 07/07/23 Status: Ordered ergocalciferol 50,000 intl units (1.25 mg) oral capsule = 1 cap(s), Oral, qWeek, 0 Refill(s), Indication: supplement Start Date: 07/07/23 Status: Ordered Farxiga 10 mg oral tablet = 1 tab(s), Oral, Daily, 0 Refill(s), Indication: DM Start Date: 07/07/23 Status: Ordered losartan 100 mg oral tablet = 1 tab(s), Oral, Daily, 0 Refill(s), Indication: HTN Start Date: 07/07/23 Status: Ordered MiraLax oral powder for reconstitution = 1 packet(s), Oral, Daily, PRN constipation, 0 Refill(s), Indication: constipation Start Date: 07/07/23 Status: Ordered oxyCODONE 10 mg oral tablet 10 mg, Oral, q4hr, 0 Refill(s), Indication: pain Start Date: 07/07/23 Status: Ordered Ozempic 2 mg/3 mL (0.25 mg or 0.5 mg dose) subcutaneous solution = 0.75 mL, Subcutaneous, qWeek, supply from home, 0 Refill(s), Indication: DM Start Date: 07/07/23 Status: Ordered Results Laboratory List Name Date Blood Glucose Monitoring POC 07/07/23 CBC without Diff (WAM)* ([facility]) 07/07/23 Comp Met Plas* ([facility]) 07/07/23 Blood Glucose Monitoring POC 07/06/23 Most recent to oldest [Reference Range]: 1 2 CO2, Total [22-32 mmol/L] 27 mmol/L 1 (07/07/23 8:36 AM) NUC RBC Absolute, Automated [0.00-0.01] 0.00 2 (07/07/23 8:36 AM) Calcium, Total [8.5-10.3 mg/dL] 9.2 mg/d L 3 (07/07/23 8:36 AM) Plasma Potassium [3.3-4.9 mmol/L] 4.7 mm ol/L 4 (07/07/23 8:36 AM) Plasma Total Protein [6.5-8.5 gm/dL] 7.7 gm/dL 5 (07/07/23 8:36 AM) WBC [3.8-9.9] 10.8 6 *HI* (07/07/23 8:36 AM) RBC [3.90-5.20] 3.95 7 (07/07/23 8:36 AM) BUN [6-25 mg/dL] 18 mg/dL 8 (07/07/23 8:36 AM) MCV [81.3-96.4 fL] 86.6 fL 9 (07/07/23 8:36 AM) AST [10-45] 20 10 (07/07/23 8:36 AM) ALT [7-45] 14 11 (07/07/23 8:36 AM) MCHC [32.3-35.7 gm/dL] 30.4 gm/dL 12 *LOW* (07/07/23 8:36 AM) Hct [35.6-45.5 %] 34.2 % 13 *LOW* (07/07/23 8:36 AM) Glucose Lvl [70-199 mg/dL] 117 mg/dL 14 (07/07/23 8:36 AM) MCH [27.1-33.3 pg] 26.3 pg 15 *LOW* (07/07/23 8:36 AM) Hgb [11.9-15.5 gm/dL] 10.4 gm/dL 16 *LOW* (07/07/23 8:36 AM) MPV [9.1-12.3 fL] 10.6 fL 17 (07/07/23 8:36 AM) Chloride [97-110 mmol/L] 102 mmol/L 18 (07/07/23 8:36 AM) Albumin [3.5-5.0 gm/dL] 3.4 gm/dL 19 *LOW* (07/07/23 8:36 AM) Creatinine* (Schryver) [0.60-1.10 mg/dL] 1.09 mg/dL 20 (07/07/23 8:36 AM) Sodium [135-145 mmol/L] 139 mmol/L 21 (07/07/23 8:36 AM) Alkaline Phosphatase [40-130] 65 22 (07/07/23 8:36 AM) Platelet Count [150-400] 310 23 (07/07/23 8:36 AM) Blood Glucose, Capillary 105 mg/dL (07/07/23 7:00 AM) 110 mg/dL (07/06/23 8:00 AM) Anion Gap [2-15 mmol/L] 10 mmol/L 24 (07/07/23 8:36 AM) eGFR [>=60] 56 25 *LOW* (07/07/23 8:36 AM) Bilirubin Total [0.1-1.2 mg/dL] 0.4 mg/d L 26 (07/07/23 8:36 AM) RDW SD [35.7-48.1 fL] 50.8 fL 27 *HI* (07/07/23 8:36 AM) RDW CV [11.1-14.9 %] 16.0 % 28 *HI* (07/07/23 8:36 AM) 1Result Comment: [address] [address] 2Result Comment: [address] [address] 3Result Comment: [address] [address] 4Result Comment: [address] [address] 5Result Comment: [address] [address] 6Result Comment: [address] [address] 7Result Comment: [address] [address] 8Result Comment: [address] [address] 9Result Comment: [address] [address] 10Result Comment: [address] [address] 11Result Comment: [address] [address] 12Result Comment: [address] [address] 13Result Comment: [address] [address] 14Result Comment: Interpretive Data Fasting glucose >/= 126 mg/dl is diagnostic for diabetes. Fasting is defined as no caloric intake for at least 8 hours. Fasting glucose between 100 mg/dl to 125 mg/dl is diagnostic of prediabetes. In a patient with classic symptoms of hyperglycemia or hyperglycemic crisis, a random glucose >/= 200 mg/dl is diagnostic for diabetes. In the absence of unequivocal hyperglycemia, results should be confirmed by repeat testing. The classification and Diagnosis of Diabetes Diabetes Care 202; 46: S19-S40. Current interpretive data was last revised 2022. [address] [address] 15Result Comment: [address] [address] 16Result Comment: [address] [address] 17Result Comment: [address] [address] 18Result Comment: [address] [address] 19Result Comment: [address] [address] 20Result Comment: [address] [address] 21Result Comment: [address] [address] 22Result Comment: [address] [address] 23Result Comment: [address] [address] 24Result Comment: [address] [address] 25Result Comment: Interpretive Data Reference Interval Normal >/= 90 mL/min/1.73m2 Mildly decreased* 60 - 89 mL/min/1.73m2 Mildly to moderately decreased 45 - 59 mL/min/1.73m2 Moderately to severely decreased 30 - 44 mL/min/1.73m2 Severely decreased 15 - 29 mL/min/1.73m2 Kidney Failure < 15 mL/min/1.73m2 *Relative to young adult level Estimated glomerular filtration rate is determined by the 2020 CKD-EPI equation recommended by the National Kidney Foundation (A Unifying Approach to GFR Estimation: Recommendations of the NKF-ASK Task Force on Reassessing the Inclusion of Race in Diagnosing Kidney Disease, JASN 2020). The CKD-EPI equation should not be used for patients with unstable renal function and has not been validated in children and those over 70. Current interpretive data was last reviewed 2021. [address] [address] 26Result Comment: [address] [address] 27Result Comment: [address] [address] 28Result Comment: [address] [address] Vital Signs Most recent to oldest [Reference Range]: 1 Blood Pressure [90-120/60-80 mmHg] 135/6 5mmHg *HI* (07/07/23 8:28 AM) Temperature Axillary [95.9-97.34 DegF] 9 8.6 DegF *HI* (07/07/23 8:28 AM) Temperature Oral [96.98-99.5 DegF] 98.2 DegF (07/06/23 10:08 PM) Peripheral Pulse Rate [60-100 bpm] 100 b pm (07/07/23 11:57 AM) Respiratory Rate [14-20 br/min] 16 br/mi n (07/07/23 11:57 AM) Temperature Infrared [96.44-98.42 DegF] 97.9 DegF (07/04/23 9:56 AM) Social History Social History Type Response Tobacco Smoking Tobacco Use: Never (less than 100 in lifetime). Sex Hospital Discharge Instructions Patient Education 07/07/2023 13:10:40 Total Knee Replacement, Care After, [id number] Total Knee Replacement, Care After After the procedure, it is common to have stiffness and discomfort, or redness, pain, and swelling around your cut from surgery (incision). You may also have a small amount of blood or clear fluid coming from your incision. Follow these instructions at home: Your doctor may give you more instructions. If you have problems, contact your doctor. Medicines ??? Take dztb-qol-allirrq and prescription medicines only as told by your doctor. ??? If you were prescribed a blood thinner, take it as told by your doctor. ??? If told, take steps to prevent problems with pooping (constipation). You may need to: ??? Drink enough fluid to keep your pee (urine) pale yellow. ??? Take medicines. You will be told what medicines to take. ??? Eat foods that are high in fiber. These include beans, whole grains, and fresh fruits and vegetables. ??? Limit foods that are high in fat and sugar. These include fried or sweet foods. Incision care ??? Follow instructions from your doctor about how to take care of your incision. Make sure you: ??? Wash your hands with soap and water for at least 20 seconds before and after you change your bandage. If you cannot use soap and water, use hand dry pan charger. ??? Change your bandage. ??? Leave stitches, tylor, or skin glue in place for at least 2 weeks. ??? Leave tape strips alone unless you are told to take them off. You may trim the edges of the tape strips if they curl up. ??? Do not take baths, swim, or use a hot tub until your doctor says it is okay. ??? Check your incision every day for signs of infection. Check for: ??? More redness, swelling, or pain. ??? More fluid or blood. ??? Warmth. ??? Pus or a bad smell. Activity ??? Rest as told by your doctor. ??? Get up to take short walks every 1 to 2 hours. Ask for help if you feel weak or unsteady. ??? Follow instructions from your doctor about: ??? Using a walker, crutches, or a cane. ??? How much body weight you may safely support on your affected leg (weight- bearing restrictions). ??? How to get out of a bed and chair and how to go up and down stairs. A physical therapist will show you how to do this. ??? Do exercises as told by your doctor or physical therapist. ??? Avoid activities that put stress on your knees. These include running, jumping rope, and doing jumping jacks. ??? Do not play contact sports until your doctor says it is okay. ??? Return to your normal activities when your doctor says that it is safe. Managing pain, stiffness, and swelling ??? If told, put ice on your knee. To do this: ??? Put ice in a plastic bag or use an icing device (cold flow pad). Follow your doctor's directions about how to use the icing device. ??? Place a towel between your skin and the bag or between your skin and the icing device. ??? Leave the ice on for 20 minutes, 2???3 times a day. ??? Take off the ice if your skin turns bright red. This is very important. If you cannot feel pain, heat, or cold, you have a greater risk of damage to the area. ??? Move your toes often. ??? Raise your leg above the level of your heart while you are sitting or lying down. ??? Use a few pillows to keep your leg straight. ??? Do not put a pillow just under the knee. If the knee is bent for a long time, this may make theknee stiff. ??? Wear elastic knee support as told by your doctor. Safety ??? To help prevent falls: ??? Keep floors clear of objects you may trip over. ??? Place items that you may need within easy reach. ??? Wear an apron or tool belt with pockets for carrying objects. This leaves your hands free to help with your balance. ??? Do not drive or use machines until your doctor says it is safe. General instructions ??? Wear compression stockings as told by your doctor. ??? Continue with breathing exercises. This helps prevent lung infection. ??? Do not smoke or use any products that contain nicotine or tobacco. If you need help quitting, ask your doctor. ??? If you plan to visit a dentist: ??? Tell your doctor. Ask about things to do before your teeth are cleaned. ??? Tell your dentist about your new joint. ??? Keep all follow-up visits. Contact a doctor if: ??? You have a fever or chills. ??? You have a cough or feel short of breath. ??? Your medicine is not controlling your pain. ??? You have any of these signs of infection around your incision: ??? More redness, swelling, or pain. ??? More fluid or blood. ??? Warmth. ??? Pus or a bad smell. ??? You fall. Get help right away if: ??? You have very bad pain. ??? You have trouble breathing. ??? You have chest pain. ??? You have pain in your calf or leg. ??? You have redness, swelling, or warmth in your calf or leg. ??? Your incision breaks open after the stitches or tylor are taken out. These symptoms may be an emergency. Get help right away. Call your local emergency services ([facility] [place] ??? Do not wait to see if the symptoms will go away. ??? Do not drive yourself to the hospital. Summary ??? After the procedure, it is common to have stiffness and discomfort, or redness, pain, and swelling around your incision. ??? Follow instructions from your doctor about how to take care of your incision. ??? Use crutches, a walker, or a cane as told by your doctor. ??? If you were prescribed a blood thinner, take it as told by your doctor. ??? Keep all follow-up visits. This information is not intended to replace advice given to you by your health care provider. Make sure you discuss any questions you have with your health care provider. Document Revised: 08/29/2020 Document Reviewed: 08/29/2020 [employer] Patient Education ?? 2021 [employer] History and physical note * Pema Bobo [facility] REC CONTACT LENS EDGE BUFFER: PERFORM Event Display: History and Physical Authored Date: [id number] Nutrition and dietetics Progress note * Daren Ramirez RD: PERFORM Event Display: Dietary Progress Note Authored Date: [id number] 68-year-old female post total knee arthroplasty on 07/01/23. Stated her appetite is good and she doesnot have any chewing, swallowing, or oral health problems. Has been constipated recently. Cooks a little at home and also gets ???Meals on Wheels.?? Has been trying to follow a diabetic diet. Checksblood sugars in the morning. Current weight is her normal weight. Nutrition-knowledge deficit relate d to eating as a diabetic as evidenced by patient interview. Patient to take steps after discharge to make food choices to better manage her diabetes. Educated patient on how to follow a diabetic diet with the ???ADA Diabetic Diet?? handout. ??? Fill half of your plate with non-starchy vegetables, such as spinach, carrots and tomatoes. ??? Fill a quarter of your plate with a protein, such as tuna, lean pork or chicken. ??? Fill the last quarter with a whole-grain item, such as brown rice, or a starchy vegetable, suchas green peas. ??? Include good fats such as nuts or avocados in small amounts. ??? Add a serving of fruit or dairy and a drink of water or unsweetened tea or coffee. Electronically Signed on 07/04/2023 01:[address] Daren Ramirez RD Pharmacology Progress note * Sean Hernandez Pharmacist: PERFORM Event Display: Pharmacy Progress Note Authored Date: [id number] Pharmacy Progress Note Based upon the information available at the time of the review, and assuming the accuracy and completeness of such information, it is my professional judgement that at such time, the resident???s medication regimen contained no new irregularities. Electronically Signed on 07/04/2023 11:54 AM CDT Sean Hernandez Pharmacist Respiratory therapy Hospital Progress note * Kirti Mcintyre RT: PERFORM Event Display: Respiratory Therapy Progress Note Authored Date: [id number] home CPAP not in use Electronically Signed on 07/07/2023 01:56 PM CDT Kirti Mcintyre RT Patient Care team information Care Team Related Persons Name: ANABEL PEDERSEN Name: BERNARDINO NORTON
--- OUTSIDE RECORDS SUMMARY | 2024-03-23 01:47 | XMS_ITS ---
Author Organization [facility] Address [address] [place] [address] Care Team Providers Care Vp Ad Products And Planning Name Role Phone Devonte Chen Unavailable [phone] MEDICATIONS Medication SIG (Take, Route, Frequency, Duration) Notes Start Date End Date Status Farxiga 10 MG 1 tablet Orally Once a day for 30 days 10/28/2023 02/24/2024 Active Vitamin D (Ergocalciferol) 1.25 MG (43242 UT) Take 1 capsule by mouth once a week for 91 Active SOCIAL HISTORY Sex Assigned At : Social History Observation Description Sex Assigned At Female Encounters Encounter Location Date Provider Diagnosis [facility] [address] [facility] [address] [place] [address] 12/12/2023 Devonte Chen Chronic kidney disease, stage 3b N18.32 ; Type 2 diabetes mellitus with hyperglycemia E11.65 ; Essential (primary) hypertension I10 ; Obesity, unspecified E66.9 ; Lymphedema, not elsewhere classified I89.0 and Anemia, unspecified D64.9 ASSESSMENTS Encounter Date Diagnosis Assessment Notes Treatment Notes Treatment Clinical Notes Section Notes 12/12/2023 Chronic kidney disease, stage 3b (ICD-10 - N18.32) 12/12/2023 Type 2 diabetes mellitus with hyperglycemia (ICD-10 - E11.65) 12/12/2023 Essential (primary) hypertension (ICD-10 - I10) 12/12/2023 Obesity, unspecified (ICD-10 - E66.9) 12/12/2023 Lymphedema, not elsewhere classified (ICD-10 - I89.0) 12/12/2023 Anemia, unspecified (ICD-10 - D64.9) PLAN OF TREATMENT No Information Progress Notes * KIMMY COTTOHDOB:1955 (69 yo F)Acc No.[id number]:12/12/2023 Progress Notes Patient:??ЕКАТЕРИНА COTTO Provider:??MD MAURILIO, F.Sheela.C.P, F.A.S .N. :1955?Age:68 Y?Sex:Fe male Date:12/12/2023 Address:[address] [place], [place] [id number] Subjective: * Chief Complaints: * ? * Medical History:?? * Medications:??Taking Farxiga 10 MG Tablet 1 tablet Orally Once a day , stop date 02/24/2024, Taking Vitamin D (Ergocalciferol) 1.25 MG (18963 UT) Capsule Take 1 capsule by mouth once a week Objective: Assessment: * Assessment: 1.??Chronic kidney disease, stage 3b - N18.32 (Primary)??2.??Type 2 diabetes mellitus with hyperglycemia - E11.65??3.??Essential (primary) hypertension - I10??4.??Obesity, unspecified - E66.9??5.??Lymphedema, not elsewhere classified - I89.0??6.??Anemia, unspecified - D64.9?? Plan: * Treatment: * Billing Information: * Visit Code:?? 34303 Office Visit, New Pt., Level 5. * Procedure Codes:?? * GER BANQUET Sign off status: Pending * Provider:??MD MAURILIO, Mercedes.Sheela.C.P, F.A.S .N. Date:??12/12/2023
--- OUTSIDE RECORDS SUMMARY | 2024-03-23 01:47 | XMS_ITS | Patient Health Record ---
Author Organization 1 OF Agusto schumacher [facility] Address [address] [place] [address] Care Team Providers Care Fruit Shipper Name Role Phone Fidencio French MD Primary Care Provider Unavail able Tammy Aponte Unavailable [phone] Allergies No Known Allergies Reason For Referral No Information Medications Medication SIG (Take, Route, Fr equency, Duration) Notes Start Date End Date Status Trulicity Active amLODIPine Besylate Active Atorvastatin Calcium Active Farxiga Active Losartan Potassium A ctive Calcitriol Active Vitamin D Active Social History Tobacco Use: Social History Observation Description Date Details (start date - stop date) Former Smoker NA - NA Tobacco Use/Smoking Question Answer Notes Are you a former smoker How long has it been since you last smoked? 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) Active confirmed Problem 15805216 Type 2 diabetes mellitus with other diabetic neurological complication (E11.49) Active confirmed Problem 622625827 Lymphedema (I89.0) Active confirmed Problem 880732064 Type 2 diabetes mellitus without complication, without long-term current use of insulin (E11.9) Active confirmed Vital Signs Height 62 in 01/21/2024 Weight 205 lbs 01/21/2024 BMI 37.49 kg/m2 01/21/2024 Encounters Encounter Location Date Provider Diagnosis 1 OF Agusto Choudhury [facility] [address] [place] [address] 05/01/2023 Tammy Aponte Lymphedema I89.0 ; T ype 2 diabetes mellitus with other diabetic neurological complication E11.49 ; Onychodystrophy L60.3 ; Callus L84 ; Pain around toenail, left foot M79.675 ; Pain around toenail, right foot M79.674 ; Foot pain, right M79.671 and Numbness of toes R20.0 1 OF Agusto Brink [facility] [address] [address] 08/28/2023 Tammy Aponte Onychodystrophy L60. 3 ; Type 2 diabetes mellitus with other diabetic neurological complication E11.49 ; Callus L84 ; Synovitis of right ankle M65.9 and Foot pain, right M79.671 1 OF [place] [facility] [address] [address] 11/10/2023 Tammy Aponte Onychodystrophy L60. 3 ; Type 2 diabetes mellitus with other diabetic neurological complication E11.49 and Callus L84 1 OF [facility] [address] [address] 01/21/2024 Tammy Aponte Onychodystrophy L60. 3 ; Type 2 diabetes mellitus with other diabetic neurological complication E11.49 and Callus L84 Assessments Encounter Date Diagnosis (ICD Code) Assessment Notes Treatment Notes Treatment Clinical Notes Section Notes 05/01/2023 Type 2 diabetes mellitus with other diabetic neurological complication (ICD-10 - E11.49) 05/01/2023 Lymphedema (ICD-10 - I89.0) Considering the associated comorbidities and physical exam findings today, this patient is at substantial risk of developing serious foot complications in the absence of regular and professional palliative foot care. 08/28/2023 Onychodystrophy (ICD-10 - L60.3) 11/10/2023 Onychodystrophy (ICD-10 - L60.3) 01/21/2024 Onychodystrophy (ICD-10 - L60.3) 01/21/2024 Type [...] would like a prescription for diabetic inserts. 11/10/2023 Type 2 diabetes mellitus with other diabetic neurological complication (ICD-10 - E11.49) Considering the associated comorbidities and physical exam findings today, this patient is at substantial risk of developing serious foot complications in the absence of regular and professional palliative foot care. 11/10/2023 Callus (ICD-10 - L84) 08/28/2023 Type 2 diabetes mellitus with other diabetic neurological complication (ICD-10 - E11.49) Considering the associated comorbidities and physical exam findings today, this patient is at substantial risk of developing serious foot complications in the absence of regular and professional palliative foot care. 08/28/2023 Callus (ICD-10 - L84) 05/01/2023 Onychodystrophy (ICD-10 - L60.3) 08/28/2023 Synovitis of right ankle (ICD-10 - M65.9) Evaluation today included a review of medical history, review of systems, discussion of exam findings, and review of diagnoses and treatment options. X-rays were reviewed and discussed with the patient. I discussed that she may be walking differently due to her total knee replacement putting pressure on the outside of her right foot and ankle. I explained that she does have some signs of arthritis to the right ankle. She was advised to rest and ice the foot as needed for pain. She is to use compression for her right foot and lower leg. I discussed the importance of wearing good supportive shoes. I discussed potential immobilization in an ankle brace, if her symptoms continue to worsen. She would like to follow-up as needed for the pain. 05/01/2023 Callus (ICD-10 - L84) 01/21/2024 Callus (ICD-10 - L84) 08/28/2023 Foot pain, right (ICD-10 - M79.671) 05/01/2023 Pain around toenail, left foot (ICD-10 - M79.675) 05/01/2023 Pain around toenail, right foot (ICD-10 - M79.674) 05/01/2023 Foot pain, right (ICD-10 - M79.671) 05/01/2023 Numbness of toes (ICD-10 - R20.0) 08/28/2023 Other Plan Of Treatment Next Appt Details Provider Name:Tammy Aponte, 04/01/2024 10:40:00 AM, [address], [address], [place], [address], Insurance Providers Payer Name Payer Address Payer Phone Subscriber Number Group Number Insured Name Patient Relationship to Insured Coverage Start Date Coverage End Date [employer] [address] [address] [place] [address] [phone] [id number] Lindsay Pedersen Self - patient is the insured Medical (General) History Medical History History ICD Code Anemia, Arthritis, Diabetes, HBP, high cholesterol, Decreased kidney function, Lymphedema Surgical History Surgery Date(Month/Year) RT TKR 06/2023
--- OUTSIDE RECORDS SUMMARY | 2024-03-23 01:47 | XMS_ITS ---
Author Organization [facility] Address [address] [place] [address] Care Team Providers Care Harness And Bag Inspector Name Role Phone Devonte Chen Unavailable [phone] MEDICATIONS Medication SIG (Take, Route, Frequency, Duration) Notes Start Date End Date Status Vitamin D (Ergocalciferol) 1.25 MG (74032 UT) Take 1 capsule by mouth once a week for 91 Active SOCIAL HISTORY Sex Assigned At : Social History Observation Description Sex Assigned At Female Encounters Encounter Location Date Provider Diagnosis [facility] [address] [facility] [address] [place] [address] 11/26/2023 Devonte Chen PLAN OF TREATMENT Medication Medication Name Sig Start Date Stop Date Notes Vitamin D (Ergocalciferol) 1 .25 MG (85094 UT) Take 1 capsule by mouth once a week for 91 Progress Notes * KIMMY COTTOHDOB:1955 (68 yo F)Acc No.[id number]:11/26/2023 Patient:??ЕКАТЕРИНА COTTO :1955?Age:68 Y?Sex:Fe male Address:[address] [place] [address], [facility] [place] [address] * Refills?? Refill Vitamin D (Ergocalciferol) Capsule, 1.25 MG (15498 UT), 13 Capsule, Take 1 capsule by mouth once a week, 91, Refills=0 * true * Date:??
--- OUTSIDE RECORDS SUMMARY | 2024-03-23 01:47 | XMS_ITS | Continuity of Care Document ---
Author Organization [facility] Address [address] [place] [address] [address] [place] [address]- Care Team Providers Care Radio Frequency Engineer Name Role Phone Unavailable Primary Care Physician Unavailab le Encounter(s) 07/03/[address] [place] [address]- Attending Physician: Robb Lr MD Allergies, Adverse Reactions, Alerts Substance Criticality Severity Reaction Reaction Severity Status Shrimp Swelling Active Assessment and Plan Extracted from: Title:Clinical Document Author:Mary Lou Soto ate:07/06/23 Patient noncompliant with PA P last night. Extracted from: Title:Clinical Document Author:Mary Lou Soto ate:07/05/23 Patient compliant with PAP l ast night. Extracted from: Title:Nutrition follow-up note Author:Frieda Ramirez Benjamin RD Date:07/04/23 68-year-old female post tota l [...] Diabetic Diet? handout. Assessment completed by: Daren Ramirez RDN, LDN Extracted from: Title:Clinical Document Author:Sean Hernandez Pharmacist [...] Monitoring POC 07/07/23 CBC without Diff (WAM)* ([facility]) 07/07/23 Comp Met Plas* ([facility]) 07/07/23 Blood Glucose Monitoring POC 07/06/23 Most [...] Hgb [11.9-15.5 gm/dL] 10.4 gm/dL 16 *LOW* (4/15/24 8:36 AM) MPV [9.1-12.3 fL] 10.6 fL [...] 28 *HI* (07/07/23 8:36 AM) 1Result Comment: [facility], [address] [place] [address]., [address] 2Result Comment: [address] [address] 3Result Comment: [address] [address] 4Result Comment: [address] [address] 5Result Comment: [address] [address] 6Result Comment: [address] [address] 7Result Comment: [address] [address] 8Result Comment: [address] [address] 9Result Comment: [address] [address] 10Result Comment: [address] [address] 11Result Comment: [address] [address] 12Result Comment: [address] [address] 13Result Comment: [address] [address] 14Result Comment: Interpretive Data Fasting glucose >/= [...] classification and Diagnosis of Diabetes Diabetes Care 2021; 46: S19-S40. Current interpretive data was last revised 2022. [address] [address] 15Result Comment: [address] [address] 16Result Comment: [address] [address] 17Result Comment: [address] [address] 18Result Comment: [address] [address] 19Result Comment: [address] [address] 20Result Comment: [address] [address] 21Result Comment: [address] [address] 22Result Comment: [address] [address] 23Result Comment: [address] [address] 24Result Comment: [address] [address] 25Result Comment: Interpretive Data Reference Interval Normal [...] Current interpretive data was last reviewed 2021. [address] [address] 26Result Comment: [address] [address] 27Result Comment: [address] [address] 28Result Comment: [address] [address] Vital Signs Most recent to oldest [Reference [...] 07/07/2023 13:10:40 Total Knee Replacement, Care After, Lmwo-tf-Tbgl Total Knee Replacement, Care After After the [...] problems, contact your doctor. Medicines ??? Take capp-woe-vaojgfp and prescription medicines only as told by [...] cannot use soap and water, use hand vp ad products and planning. ??? Change your bandage. ??? Leave stitches, [...] right away. Call your local emergency services (911 int [place] ??? Do not wait to see [...] provider. Document Revised: 08/29/2020 Document Reviewed: 08/29/2020 [employer] Patient Education ?? 2021 [employer] History and physical note * Pema Bboo MED REC [employer]: PERFORM Event Display: History and Physical Authored Date: [id number] Nutrition and dietetics Progress note * Daren Ramirez RD: PERFORM Event Display: Dietary Progress Note Authored Date: [id number] 68-year-old female post total knee arthroplasty on [...] Event Display: Pharmacy Progress Note Authored Date: [id number] Pharmacy Progress Note Based upon the information available at the time of the review, and assuming the accuracy and completeness of such information, it is my professional judgement that at such time, the resident???s medication regimen contained no new irregularities. Electronically Signed on 07/04/2023 11:54 AM CDT Sean Hernandez Pharmacist Respiratory therapy Hospital Progress note * Mary Lou Soto: PERFORM Event Display: Respiratory Therapy Progress Note Authored Date: [id number] Patient noncompliant with PAP last night. Electronically Signed on 07/06/2023 12:42 PM CDT Mary Lou Soto Patient Care team information Care Team Related Persons Name: ANABEL PEDERSEN Name: BERNARDINO NORTON
--- OUTSIDE RECORDS SUMMARY | 2024-03-23 01:47 | XMS_ITS ---
Author Organization 1 OF Agusto schumacher [facility] Address [address] [place] [address] Care Team Providers Care Rfid Technician Name Role Phone Fidencio French MD Primary Care Provider Unavail able Tammy Aponte Unavailable [phone] REASON FOR VISIT DFC (Diabetic foot care) Encounters Encounter Location Date Provider Diagnosis 1 OF Agusto Choudhury [facility] [address] [place] [address] 11/06/2023 Tammy Fadi Onychodystrophy L60. 3 ; Type 2 diabetes mellitus with other diabetic neurological complication E11.49 and Callus L84 Assessments Encounter Date Diagnosis (ICD Code) Assessment Notes Treatment Notes Treatment Clinical Notes Section Notes 11/06/2023 Onychodystrophy (ICD-10 - L60.3) 11/06/2023 Type 2 diabetes mellitus with other diabetic neurological complication (ICD-10 - E11.49) Considering the associated comorbidities and physical exam findings today, this patient is at substantial risk of developing serious foot complications in the absence of regular and professional palliative foot care. 11/06/2023 Callus (ICD-10 - L84) Plan Of Treatment [...] PRN with any concerns, Reason: Provider Name:Tammy Aponte, 04/01/2024 10:40:00 AM, [address], [place], [address], Procedure Notes * Category Sub-Category Detail Notes PALLIATIVE FOOT CARE: Callus paring: (09886) Si ngle callus as noted above reduced with a sterile scalpel blade, Dystrophic nail trim (G0127) All dystrop hic nails reduced in length and thickness with curettage of debris from nail margins as needed Progress Notes * Danielle PEDERSENhDOB:1955 (69 yo F)Acc No.[id number]:11/06/2023 Progress Note Patient:?Lindsay PEDERSEN Provider:?Tammy Aponte DPM :1955???Age:68 Y???Sex:Female D ate:11/06/2023 Address:[address] [place], [place] [id number] Pcp:Fidencio French MD Subjective: * Chief Complaints: * ???1. DFC (Diabetic foot car e). * HPI: ???MA assisting with visit::?HPI/Rooming:?......?Primary reason for visit::?Diabetic Foot Care: ?68 y/o diabetic female RTO for diabetic foot care. Patient reports no acute issues with nails or calluses today.?ago.?Reports last HA1c of.? * Medical History:? Objective: * Vitals:? * Examination: ???General Examination: ?Constitutional / Appearance: ?No acute distress , Well nourished, Appropriate personal hygiene.?Mental status: ?Cooperative, Oriented to person, place and time, Mood and affect: normal, Judgement and intellect: normal with appropriate response to questions.?Ambulatory assistive device: ?cane.?Shoes today:?XXXXXX.?Lower Extremity VASCULAR: : ?Pulses:?DP pulse diminished b/l , PT pulse diminished b/l.?Temperature gradient: ?relatively warm from proximal to distal, bilateral.?Pedal hair: ?sparse, bilateral.?Venous insufficiency edema:?Moderate edema noted to the right lower leg..?Capillary refill at distal toes? less than 3 seconds, bilateral.?Lower Extremity DERM: : ?Skin: ?no suspicious lesions, no open sores, without interdigital maceration, bilateral.?Nails:?Nails appear elongated and dystrophic with abnormal shape, periungual debris, subungual hyperkeratosis..?Hyperkeratotic lesions LEFT foot: ?no significant hpk lesions noted.?Hyperkeratotic lesions RIGHT foot: ?medial hallux IPJ - some discomfort with palpation.?Lower Extremity NEURO: : ?General sensation appears?intact , [...] compared to ipsilateral medial malleolus @ right foot.?Tarsal tunnel evaluation: ?Unremarkable with no pain or paresthesias noted b/l..?Lower Extremity MSK: : ?Gait?Slow, wide-based gait.?Foot type:?Bilateral lower extremity exhibits pes planus foot type with decreased medial arch.?Left lower extremity inspection and palpation: ?No palpable masses or nodules noted. Adequate ROM noted to the joints..?Right lower extremity inspection and palpation: ?No palpable masses or nodules noted. Adequate ROM noted to the joints. Some pain with palpation along the lateral aspect of the ankle and peroneal tendons.? Some pain with palpation along the course of the fifth metatarsal.? Minimal discomfort with range of motion of the fifth MPJ..?Diagnostic Studies: : ?X-rays of right lower extremity:?3 views of foot & 2 views of ankle: Significant findings include: No acute fractures or dislocations noted.? There is joint space narrowing noted along the ankle joint. There is more narrowing noted to the lateral gutter of the ankle.? Decreased calcaneal inclination angle, increased talar declination angle. No acute abnormalities noted along the metatarsals.? MPJs are aligned..? Assessment: * Assessment: 1.?Onychodystrophy - L60.3?? ?2.?Type 2 diabetes mellitus with other diabetic neurological complication - E11.49 (Primary)???3.?Callus - L84??? Plan: * Treatment: * Procedures:?PALLIATIVE FOOT CARE::?Callus paring: ?(90942) Single callus as noted above reduced with a sterile scalpel blade,.?Dystrophic nail trim (G0127)?All dystrophic nails reduced in length and thickness with curettage of debris from nail margins as needed.? * Procedure Codes:?66918 TRIM SKIN LESION, G0127 TRIMMING DYSTROPHIC NAILS ANY #, Modifiers: 59 * Preventive Medicine:? ??Screenings:?FALL RISK SCREENING?Fall Risk Assessment:?One fall without injury in the past year * Follow Up:?10-12 weeks or co ntact office PRN with any concerns * Images: * Electronic signature of Martita Aponte DPM on 03/23/2024 at 01:46 AM SURVEY ASSOCIATE Sign off status: Pending * Provider:?Tammy Aponte DPM Date:?2023 Generated for Alisa burns/Helena/Joy on:?03/23/2024 01:46 AM SURVEY ASSOCIATE History and Physical Notes * HPI (History of Present Illness) Category Sub-Category Detail Notes Category Not es Primary reason for visit: Diabetic Foot Care: 68 y/o diabetic female RTO for diabetic foot care. Patient reports no acute issues with nails or calluses today. ago. Reports last HA1c of MA assisting with visit: HPI/Rooming: ..... Examination Category Sub-Category Detail Notes Category Not es General Examination Mental status: Cooperative, Oriented to person, place and time, Mood and affect: normal, Judgement and intellect: normal with appropriate response to questions Shoes today: XXXXXX Ambulatory assistive device: cane Constitutional / Appearance: No acute di stress , Well nourished, Appropriate personal hygiene Lower Extremity VASCULAR: Venous insufficiency e milka: Moderate edema noted to the right lower leg. [...] Muscle tone within normal limits , bilateral Tarsal tunnel evaluation: Unremarkable w ith no pain or paresthesias noted b/l. Lower Extremity MSK: Foot type: Bilateral l ower extremity exhibits pes planus foot type with decreased medial arch Left lower extremity inspect ion and palpation: No palpable masses or nodules noted. Brynn quate ROM noted to the joints. Right lower extremity inspec tion and palpation: No palpable masses or nodules noted. Brynn quate ROM noted to the joints. Some pain with palpation along the lateral aspect of the ankle and peroneal tendons. Some pain with palpation along the course of the fifth metatarsal. Minimal discomfort with range of motion of the fifth MPJ. Gait Slow, wide-based gai t Diagnostic Studies: X-rays of right lowe r extremity: 3 views of foot & 2 views of ankle: Significant findings include: No acute fractures or dislocations noted. There is joint space narrowing noted along the ankle joint. There is more narrowing noted to the lateral gutter of the ankle. Decreased calcaneal inclination angle, increased talar declination angle. No acute abnormalities noted along the metatarsals. MPJs are aligned. Lower Extremity DERM: Skin: no suspici ous lesions, no open sores, without interdigital maceration, bilateral Nails: Nails appear elongat ed and dystrophic with abnormal shape, periungual debris, subungual hyperkeratosis. Hyperkeratotic lesions LEFT foot: no sig nificant hpk lesions noted Hyperkeratotic lesions RIGHT foot: media l hallux IPJ - some discomfort with palpation
--- OUTSIDE RECORDS SUMMARY | 2024-03-23 01:48 | XMS_ITS | CONTINUITY OF CARE DOCUMENT ---
Author Name brit perea Address Unknown Organization [facility] Address [address] [place] [address] Phone [phone] Care Team Providers Care Cracker And Cookie Machine Operator Name Role Phone Gustavo WANG, May Unavailable Fidencio French MD Unavailable Fidencio French MD Unavailable PROBLEMS Condition Status Date Provider Notes Mitral regurgitation, mild t o mod, ef nl, 10/2023 active Adan Ahmedzai CKD active Adan Ahmedzai Hyperlipidemia active Adan Ahmedzai Hypertension active Adan Ahmedzai Diabetes mellitus, type 2 active Adan Mercado benitez Shortness of breath active Adan Lam Family hx of heart disease active Adan james ESTELA--on cpap active Adan Mercadozai ENCOUNTERS Date Type Provider Location Encounter Diag nosis - In-person encounter Office Visit May Chen MD [place] ESTELA--on cpapFamily hx of heart diseaseShortness of breath VITAL SIGNS Date Observation Value Provider Body Mass Index (Ratio) 36.21 kg/m2 Elmo Chen MD blood pressure, cuff size regular Kusum Paul blood pressure, diastolic 79 mm[Hg] Kusum Paul blood pressure, systolic 117 mm[Hg] [facility] respiratory rate E&M 16 /min [facility] Rai [facility] pulse rate 84 /min [facility] oxygen saturation, oximetry 96 % [facility] weight E&M 198 [lb_av] [facility] height E&M 62 [in_i] [facility] ALLERGIES No Known Drug Allergies HISTORY OF MEDICATION USE Medication Status Instructions Dates Provider Indications Com ments Trulicity 1.5 mg/0.5 mL pen injector active Adan Proctormedzahanna Farxiga 10 mg tablet active Adan Lam calcitriol 0.25 mcg capsule active Adan Mercadozahanna losartan 100 mg tablet active Adan Lam ergocalciferol (vitamin D2) 1,250 mcg (50,000 unit) capsule active TAKE 1 CAPSULE BY MOUTH ONCE A WEEK Adan Lam amlodipine 10 mg tablet active Adan Mercadozahanna atorvastatin 20 mg tablet active Adan Mercadozai SOCIAL HISTORY Date Observation Value Provider smoking status Never smoker Adan Lam INSURANCE PROVIDERS Payer name Policy type / Coverage type [place] [employer] party ID [facility] COMPLETE CARE [id number] (PPO C-SNP) Commercial insurance company [id number] [facility] Medicaid 3 [id number] TREATMENT PLAN Date Name Performer Telehealth Adan Lam Telehealth: H er updated medication list for this problem includes: Losartan 100 Mg Tablet (Losartan) Amlodipine 10 Mg Tablet (Amlodipine) Adan Lam Telehealth Adan Lam Telehealth: H er updated medication list for this problem includes: Atorvastatin 20 Mg Tablet (Atorvastatin) Adan Lam Telehealth: H er updated medication list for this problem includes: Trulicity 1.5 Mg/0.5 Ml Pen Injector (Dulaglutide) Farxiga 10 Mg Tablet (Dapagliflozin propanediol) Losartan 100 Mg Tablet (Losartan) Adan Lam Telehealth: H er updated medication list for this problem includes: Losartan 100 Mg Tablet (Losartan) Amlodipine 10 Mg Tablet (Amlodipine) Adan Lam Cardiology: H er updated medication list for this problem includes: Trulicity 1.5 Mg/0.5 Ml Pen Injector (Dulaglutide) Farxiga 10 Mg Tablet (Dapagliflozin propanediol) Losartan 100 Mg Tablet (Losartan) Adan Lam Cardiology: H er updated medication list for this problem includes: Atorvastatin 20 Mg Tablet (Atorvastatin) Adan Lam Cardiology: B P today: 117/79 Her updated medication list for this problem includes: Losartan 100 Mg Tablet (Losartan) Amlodipine 10 Mg Tablet (Amlodipine) Orders: C omplete Echo ([id number]) Adan Lam Cardiology Adan Lam Cardiology: H er updated medication list for this problem includes: Losartan 100 Mg Tablet (Losartan) Amlodipine 10 Mg Tablet (Amlodipine) Orders: C omplete Echo ([id number]) Adan Lam Date Name Complete Echo Complete Echo
--- OUTSIDE RECORDS SUMMARY | 2024-03-23 01:48 | XMS_ITS | Clinical Summary ---
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 Role Phone Unavailable Primary Care Provider Unavailabl e Social History Tobacco Use Types Packs/Day Years Used Date Smoking Tobacco: Never Assessed Comments Unknown Sex and Gender Information Value Date Recorded Sex Assigned at Not on file Legal Sex Female 11:07 AM CDT Gender Identity Not on file Sexual Orientation Not on file Plan of Treatment Health Maintenance Due Date Last Done Comments DEXA Bone Density 1955 Hepatitis C Virus (HCV) Screening 1955 TdaP Immunization 1955 Colonoscopy 01/18/2001 Colorectal Cancer Screening 01/18/2001 Cologuard 01/18/2006 Immunochemical Fecal Occult Blood 01/18/2006 Mammogram 01/18/2006 Zoster Immunization (2 of 2) 05/29/2019 04/03/2019 Pneumococcal Immunization (50+ years) (1 of 1 - PCV) 01/18/2021 SARS-COV-2 Immunization (1 - season) 2022 Influenza Immunization (Season Ended) 2023 12/01/2019, 02/03/2018, 01/28/2018, Additional history exists Hepatitis B Immunization Aged Out No longer eligible based on patient's age to complete this topic Meningococcal Immunization (ACWY) Aged Out No longer eligible based on patient's age to complete this topic Rotavirus Immunization Aged Out No lo nger eligible based on patient's age to complete this topic
--- OUTSIDE RECORDS SUMMARY | 2024-03-23 01:48 | XMS_ITS | Patient Health Record ---
Author Organization [facility] Address [address] [place] [address] Care Team Providers Care Publishing Specialist Name Role Phone Devonte Chen Unavailable [phone] REASON FOR REFERRAL No Information MEDICATIONS Medication SIG (Take, Route, Frequency, Duration) Notes Start Date End Date Status Vitamin D (Ergocalciferol) 1.25 MG (29917 UT) Take 1 capsule by mouth once a week for 91 Active SOCIAL HISTORY Sex Assigned At : Social History Observation Description Sex Assigned At Female PROBLEMS Problem Type ICD Code Onset Dates Problem Status W/U Status Risk SNOMED Code Notes Problem Anemia, unspecified (D64.9) Active confirmed Anemia (667576385) Problem Type 2 diabetes mellitus with hyperglycemia (E11.65) Active confirmed Hyperglycemia due to type 2 diabetes mellitus (399426682982860 ) Problem Obesity, unspecified (E66.9) Active confirmed Obesity (603565483) Problem Essential (primary) hypertension (I10) Active confirmed Essential hypertension (03608827) Problem Lymphedema, not elsewhere classified (I89.0) Active confirmed Lymphedema (221264879) Problem Chronic kidney disease, stage 3b (N18.32) Active confirmed Chronic kidney disease stage 3B (disorder) (091068597) Encounters Encounter Location Date Provider Diagnosis [place] [facility] [address] [facility] [address] [place] [address] 04/23/2023 Devonte Chen Chronic kidney disease, stage 3b N18.32 ; Type 2 diabetes mellitus with hyperglycemia E11.65 ; Essential (primary) hypertension I10 ; Obesity, unspecified E66.9 ; Lymphedema, not elsewhere classified I89.0 and Anemia, unspecified D64.9 [address] [place] [address] 09/10/2023 Devonte Chen Chronic kidney disease, stage 3b N18.32 ; Type 2 diabetes mellitus with hyperglycemia E11.65 ; Essential (primary) hypertension I10 ; Obesity, unspecified E66.9 ; Lymphedema, not elsewhere classified I89.0 and Anemia, unspecified D64.9 [place] [facility] [address] [facility] [address] [place] [address] 12/12/2023 Devonte Chen Chronic kidney disease, stage 3b N18.32 ; Type 2 diabetes mellitus with hyperglycemia E11.65 ; Essential (primary) hypertension I10 ; Obesity, unspecified E66.9 ; Lymphedema, not elsewhere classified I89.0 and Anemia, unspecified D64.9 Alfredo [address] [place] [address] 10/28/2023 Devonte Chen [facility] [address] [place] [address] 11/25/2023 Devonte Chen [place] [facility] [address] [facility] [address] [place] [address] 11/26/2023 Devonte Chen ASSESSMENTS Encounter Date Diagnosis Assessment Notes Treatment Notes Treatment Clinical Notes Section Notes 04/23/2023 Chronic kidney disease, stage 3b (ICD-10 - N18.32) 09/10/2023 Chronic kidney disease, stage 3b (ICD-10 - N18.32) 12/12/2023 Type 2 diabetes mellitus with hyperglycemia (ICD-10 - E11.65) 12/12/2023 Chronic kidney disease, stage 3b (ICD-10 - N18.32) 12/12/2023 Essential (primary) hypertension (ICD-10 - I10) 09/10/2023 Type 2 diabetes mellitus with hyperglycemia (ICD-10 - E11.65) 04/23/2023 Type 2 diabetes mellitus with hyperglycemia (ICD-10 - E11.65) 09/10/2023 Essential (primary) hypertension (ICD-10 - I10) 04/23/2023 Essential (primary) hypertension (ICD-10 - I10) 12/12/2023 Obesity, unspecified (ICD-10 - E66.9) 12/12/2023 Lymphedema, not elsewhere classified (ICD-10 - I89.0) 09/10/2023 Obesity, unspecified (ICD-10 - E66.9) 04/23/2023 Obesity, unspecified (ICD-10 - E66.9) 09/10/2023 Lymphedema, not elsewhere classified (ICD-10 - I89.0) 04/23/2023 Lymphedema, not elsewhere classified (ICD-10 - I89.0) 12/12/2023 Anemia, unspecified (ICD-10 - D64.9) 09/10/2023 Anemia, unspecified (ICD-10 - D64.9) 04/23/2023 Anemia, unspecified (ICD-10 - D64.9) PLAN OF TREATMENT No Information
--- OUTSIDE RECORDS SUMMARY | 2024-03-23 01:48 | XMS_ITS | Clinical Summary ---
Author Organization [facility] Address [address] [place] [address] Care Team Providers Care Raise Driller Name Role Phone Fidencio French MD Primary Care Provider [phone] Dahlia Mendez PA Unavailable [phone] Allergies Active Allergy Reactions Criticality Noted Date Comments Shellfish Containing Products Swelling Medium 2023 Shrimp Swelling,Swollen tongue High 11/20/2022 Medications amLODIPine (NORVASC) 10 mg tablet Take 1 tablet (10 mg total) by mouth daily Active losartan (COZAAR) 100 mg tablet Take 1 tablet (100 mg total) by mouth daily 3 8 Active atorvastatin (LIPITOR) 20 mg tablet Take 1 tablet (20 mg total) by mouth daily 2 Active Accu-Chek Softclix Lancets lancets USE TO CHECK GLUCOSE ONCE DAILY 3 Active Accu-Chek Guide test strips strip USE ONE STRIP TO CHECK GLUCOSE DAILY 3 Active calcitRIOL (ROCALTROL) 0.25 mcg capsule Take 1 capsule (0.25 mcg total) by mouth daily Active ergocalciferol (VITAMIN D) 50,000 unit capsule Take 1 capsule (50,000 Units total) by mouth once a week Active Accu-Chek Guide Me Glucose Mtr misc 1 Insert daily 4 Active polyethylene glycol 236-22.74-6.74 -5.86 gram solution Take 240 mL by mouth once 4 Active dapagliflozin propanediol (Farxiga) 10 mg tablet Take 1 tablet every day by oral route. Active apixaban (ELIQUIS) 2.5 mg tabletIndicatio ns:VTE Prophylaxis Following Ortho Surgery Take 1 tablet (2.5 mg total) by mouth 2 (two) times a day 28 tablet 4 Active oxyCODONE (ROXICODONE) 10 mg tabletIndicatio ns:Pain Take 1 tablet (10 mg total) by mouth every 4 (four) hours 30 tablet 4 Active oxyCODONE (ROXICODONE) 5 mg immediate release tabletIndicatio ns:Pain Take 1 tablet (5 mg total) by mouth every 4 (four) hours as needed for pain 30 tablet 4 Active Trulicity 1.5 mg/0.5 mL pen injector INJECT CONTENTS OF ONE SYRINGE EVERY WEEK 4 Active lidocaine (LIDODERM) 5 % USE 1 PATCH EXTERNALLY ONCE DAILY REMOVE AND DISCARD PATCH WITHIN 12 HOURS OR DIRECTED BY DOCTOR 4 Active metroNIDAZOLE (METROGEL) 0.75 % (37.5mg/5 gram) vaginal gel INSERT 1 APPLICATORFUL VAGINALLY AT BEDTIME FOR 5 NIGHTS Active amoxicillin 500 mg capsule TAKE FOUR CAPSULES BY MOUTH ONE HOUR BEFORE APPOINTMENT 4 Active valACYclovir (VALTREX) 500 mg tablet Take 1 tablet (500 mg total) by mouth 4 Active penciclovir (DENAVIR) 1 % cream Apply 1 application 6 times a day by topical route for 5 days. 4 Active Active Problems Problem Noted Date Diagnosed Date Herpes simplex 10/24/2023 Palpitations 10/14/2023 S/P total knee arthroplasty, right 07/01/2023 Assessment & Plan (07/16/2023 11:20 AM CDT): Patient is doing well overall. X-rays were reviewed with the patient today in clinic and demonstrate hardware in good alignment without apparent complication. Patient's pain is under control, pain medication was refilled today. Patient will continue with home health physical therapy, and will start outpatient physical therapy when home Health is done. A Physical script was printed for the patient to bring in to an outpatient PT location of her choice. No evidence of infection of the surgical site. Patient will continue to keep the surgical site clean and dry for 2 more weeks and then may start getting it wet in the shower. Signs of infection were reviewed with the patient including increased swelling and erythema along the surgical site, purulent drainage from the surgical site, fever, chills and they will notify us they develop any of these signs. She will follow up in 4 weeks for x-rays and further evaluation with Dr. Gandara. Expressed understanding and agreement with the plan. Assessment & Plan (07/08/2023 1:23 PM CDT): Chronic, stable; she should begin home PT/OT; If this cannot be arranged then at the very least she should begin PT/OT outpatient and follow up w ortho. She should cont the eliquis but follow up w her pcp and ortho within 14 days for further orders/direction. She should cont the oxycodone 10mg q4h prn pain until follow up w medical providers. She is going to live (short term) w her daughter who will care for her. There is a walk in shower. Her daughter will drive her. Assessment & Plan (07/04/2023 3:01 PM CDT): Chronic, stable; cont rx oxycodone 10mg; she is unhappy w the pain control so the script is changed from q4h prn to q4h ATC (and she is advised to refuse the dose if she doesn't feel that it is needed at that time); cont rx apixaban 2.5mg po bid for DVT prophy. Osteoarthritis 05/26/2023 Dyspnea on exertion 04/22/2023 Chronic constipation 02/20/2023 Closed fracture of metatarsal bone 12/26/2022 Fracture of lower leg 12/26/2022 Tibialis tendinitis 12/26/2022 Type 2 diabetes mellitus without complication (C MS/HCC) 12/05/2022 Assessment & Plan (07/08/2023 1:21 PM CDT): Chronic, stable; cont rx lipitor, ozempic, farxiga Assessment & Plan (07/04/2023 3:01 PM CDT): Chronic, stable; cont rx farxiga, ozempic Kidney disease 09/11/2022 Skin lesion of breast 06/25/2022 Mass of right breast 06/14/2022 Gastroesophageal reflux disease 06/06/2022 Hyperlipidemia 06/06/2022 Assessment & Plan (07/08/2023 1:21 PM CDT): Chronic, stable; cont rx lipitor Assessment & Plan (07/04/2023 3:00 PM CDT): Chronic, stable; cont rx lipitor Lymphedema of lower extremity 06/06/2022 Obesity 06/06/2022 Sleep apnea 06/06/2022 Tear of meniscus of knee 06/06/2022 Family history of breast cancer 01/03/2021 Diabetes mellitus 01/06/2020 Axillary lymphadenopathy 12/31/2019 Sebaceous cyst of left axilla 12/31/2019 BI-RADS category 3 mammogram result 12/31/2019 Breast cancer screening 04/29/2019 Anemia 11/03/2018 Leukocytosis 11/03/2018 Chronic renal insufficiency, stage III (moderate ) 10/26/2018 Benign neoplastic disease 05/07/2016 Proteinuria 06/18/2012 Essential hypertension 06/18/2012 Assessment & Plan (07/08/2023 1:20 PM CDT): Chronic, stable; cont rx losartan Assessment & Plan (07/04/2023 3:00 PM CDT): Chronic, stable; cont rx norvasc, losartan Blood in urine 06/18/2012 Resolved Problems Problem Noted Date Diagnosed Date Resolved Date Arthritis of right knee 07/01/202311/22 Primary osteoarthritis of right knee 05/13/2023 12/08/2023 Encounters Date Type Department Care Team Description 12/22/2023 2:30 PM CDT Clinical Support [facility] Orthopedics and Sports Medicine [address] [place] [id number] Kamar Gandara DO Primary osteoarthritis of left knee (Primary Dx) from Last 3 Months Surgical History Surgery Date Site/Laterality Comments HYSTERECTOMY 03/24/1995 - 03/23/1996 ECTOPIC SURGERY 03/24/1975 - 03/23/1976 BREAST BIOPSY 03/24/2015 - 03/23/2016 Right Benign BREAST BIOPSY 03/24/2008 - 03/23/2009 Left Benign TUBAL LIGATION 1982 Medical History Medical History Date Comments Benign neoplasm of breast Hypertension Proteinuria Blood in urine DM2 (diabetes mellitus, type 2) (HCC) CKD (chronic kidney disease) , stage III (HCC) Motion sickness History of iron deficiency anemia GERD (gastroesophageal reflux disease) Occasional, R/T diet. Last menstrual period (LMP) > 10 days ago 1995 Ear pain, bilateral 06/11/2023 Pt c/o swim rose's ear type pain at this time. Osteoarthritis Primary osteoarthritis of right knee 05/13/2023 Arthritis of right knee 07/01/2023 Family History Medical History Relation Name Comments Breast cancer Father's Sister Breast cancer Sister Adenocarcinoma of breast - (Added by TW Conv) Relation Name Status Comments Father's Sister Sister Social History Tobacco Use Types Packs/Day Years Used Date Smoking Tobacco: Never Passive Smoke Exposure: Past Smokeless Tobacco: Never Tobacco Cessation:Counseling Given: Not Answered Alcohol Use Standard Drinks/Week Comments No 0 (1 standard drink = 0.6 oz pur e alcohol) [facility] Utilities Answer Date Recorded In the past 12 months has [employer], gas, oil, or water Exchange [employer] threatened to shut off services in your home? No 07/02/2023 Social Connection and Isolat ion Panel [NHANES] Answer Date Recorded In a typical week, how many times do you talk on the phone with family, friends, or neighbors? More than three times a week 07/02/2023 How often do you get togethe r with friends or relatives? More than three times a week 07/02/2023 How often do you attend chur ch or christian services? More than 4 times per year 07/02/2023 Do you belong to any clubs o r organizations such as jew groups, unions, fraternal or athletic groups, or school groups? No 07/02/2023 How often do you attend meet ings of the clubs or organizations you belong to? Never 07/02/2023 Are you , , di vorced, , never , or living with a partner? Patient declined 07/02/2023 AUDIT-C Answer Date Recorded Q1: How often do you have a drink containing alcohol? Never 07/01/2023 Q2: How many drinks containi ng alcohol do you have on a typical day when you are drinking? Patient does not drink Q3: How often do you have si x or more drinks on one occasion? Never 07/01/2023 Overall Financial Resource Strain (CARDIA) Answe r Date Recorded How hard is it for you to pa y for the very basics like food, housing, medical care, and heating? Not hard at all 07/02/2023 Hunger Vital Sign Answer Date Recorded Within the past 12 months, y ou worried that your food would run out before you got the money to buy more. Never true 07/02/19 24 Within the past 12 months, t he food you bought just didn't last and you didn't have money to get more. Never true 07/02/2023 PRAPARE - Transportation Answer Date Re corded In the past 12 months, has l ack of transportation kept you from medical appointments or from getting medications? No 06/22 In the past 12 months, has l ack of transportation kept you from meetings, work, or from getting things needed for daily living? No 07/02/2023 Housing Stability Vital Sign Answer Jackson e Recorded In the last 12 months, was t here a time when you were not able to pay the mortgage or rent on time? No 07/02/2023 In the last 12 months, how many places have you lived? 1 07/02/2023 In the last 12 months, was t here a time when you did not have a steady place to sleep or slept in a fci (including now)? No 07/02/2023 Personal Safety Answer Date Recorded Have you ever been in or are you currently in a harmful physical or emotional relationship or is someone making you feel afraid or unsafe? 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 Gender Identity Not on file Sexual Orientation Not on file Obstetrics History Last Filed Vital Signs Vital Sign Reading Time Taken Comments Blood Pressure 132/72 07/07/2023 8:10 AM CDT Pulse 81 07/07/2023 8:10 AM CDT Temperature 36.8 ??C (98.2 ??F) 07/07/2023 8:10 AM CD T Respiratory Rate 14 07/06/2023 8:10 PM CDT Oxygen Saturation 100% 07/07/2023 8:10 AM CDT Inhaled Oxygen Concentration - - Weight 97.1 kg (214 lb) 12/15/2023 3:13 PM CDT Height 157.5 cm (5' 2 ) 12/15/2023 3:13 PM CDT Body Mass Index 39.14 12/15/2023 3:13 PM CDT Plan of Treatment Health Maintenance Due Date Last Done Comments Albumin Creatinine Ratio, Urine 1956 Colon Cancer Screening-Colonoscopy 1955 Depression Screening 1955 Dilated Eye Exam 1956 Foot Exam 1956 Lipid Panel 1956 Pneumococcal vaccine 65+ (1 of 2 - PCV) 01/18/1962 DTaP/Tdap/Td Vaccine (1 - Tdap) 01/18/1967 Hepatitis B Screening 01/18/1974 Zoster Vaccine (2 of 2) 05/29/2019 04/03/2019 Well Visit 65+ 01/18/2021 Influenza Vaccine (#1) 2023 , 12/19/2018, 02/03/2018, Additional history exists Hemoglobin A1C 12/12/2023 06/11/2023 Fall Risk Assessment 07/02/2024 07/03/2023 eGFR 07/06/2024 07/07/2023, 06/22, 07/02/2023, Additional history exists Osteoporosis Screening-Bone Density Scan 10/07/2024 10/07/2022, 09/23/2022 Breast Cancer Screening-Mammogram 10/22/2024 10/23/2023, 01/09/2022, 01/03/2021, Additional history exists Hepatitis C Screening Completed 06/18/2012 Medical Devices Implanted Type Area Motor Pool Clerk Device Identifier Shelf Expiration Date Model / Serial / Lot [employer] Attune Cruciate Retain Cementless Knee Right 5 Narrow Component [id number] - [id number] Implanted:Qty: 1 on 07/01/2023 by Kamar Gandara DO at [facility] Right: Knee [employer] [id number] 11/22/2031 [id number] / / [id number] [employer] Attune Fb Tib Base Sz 4 Por [id number] - [id number] Implanted:Qty: 1 on 07/01/2023 by Kamar Gandara DO at [facility] Right: Knee [employer] [id number] 12/22/2031 [id number] / / [id number] [employer] Insert Tibial Knee Fixed Rm Posterior Stabilized Attune 5mm Size 5 Polyethylene [id number] - [id number] Implanted:Qty: 1 on 07/01/2023 by Kamar Gandara DO at [facility] Right: Knee [employer] [id number] 03/23/2031 [id number] / / [id number] Procedures Procedure Name Priority Date/Time Associated Diagnosis Comments NC ARTHROCENTESIS ASPIR&/INJ MAJOR JT/BURSA W/O US Routine 12/22/2023 2:30 PM CDT Primary osteoarthritis of left knee SCREENING MAMMOGRAM BILATERAL W PREM Schedule Routine, Read Routine (OP Routine) 10/23/2023 2:39 PM CDT Encounter for screening mammogram for malignant neoplasm of breast EGFR Routine 07/07/2023 8:36 AM CDT HEMOGLOBIN A1C Routine 06/11/2023 9:28 AM CDT Primary osteoarthritis of right knee Preop testing Elevated hemoglobin A1c DEXA AXIAL SKELETON BONE DENSITY 1 OR MORE SITES Schedule Routine, Read Routine (OP Routine) 09/23/2022 10:06 AM CDT Postmenopausal state SERUM HEPATITIS C AB Routine 06/18/2012 10:52 AM CDT from Last 3 Months or Most Recently Relevant to Health Maintenance Results * NC ARTHROCENTESIS ASPIR&/INJ MAJOR JT/BURSA W/O US (12/22/2023 2:30 PM CDT) Narrative Kamar Gandara DO - 12/22/2023 2:30 PM CDT Kamar Gandara, DO ? 12/22/2023 ??3:17 PM Large Joint (Hip, Knee, Shoulder) Injection: L knee Performed by: Kamar Gandara DO Authorized by: Kamar Gandara DO ?? Large Joint Injection/Aspiration: ??Verbal consent obtained: Yes ?? Procedure Details: ??Location: ??Knee ??Site: ??L knee ??Prep: patient was prepped using a clean technique ?Medications: ??16 mg hylan g-f 20 16 mg/2 mL ??Patient tolerance: ??Patient tolerated the procedure well with no immediate complications us Kamar Gandara DO IN CLINIC/BEDSIDE ORDERABLES F inal Result * Screening Mammogram Bilateral W Prem (10/23/2023 2:39 PM CDT) Anatomical Region Laterality Modality Breast Bilateral Mammography Narrative 10/24/2023 1:35 PM CDT Mammogram Technique: Bilateral Digital Breast Tomosynthesis, Bilateral C-view 2D Screening mammogram. ??Views obtained: ??bilateral craniocaudal and bilateral mediolateral oblique. ??Computer Aided Detection was performed. Mammogram Findings: The present examination has been compared to prior imaging studies performed at [facility] on 01/03/2021, 01/09/2022 and 06/19/2022. The breasts are heterogeneously dense, which may obscure small masses. There is no suspicious abnormality in either breast. There are no significant changes from the prior study. Impression: There is no mammographic evidence of malignancy. Annual screening mammography is recommended. If supplemental screening is desired, breast MRI would be recommended in this patient with heterogeneously dense breasts. OVERALL FINAL ASSESSMENT: BI-RADS CATEGORY 1: ??Negative. Procedure Note Radha Gates MD - 10/24/2023 Mammogram Technique: Bilateral Digital Breast Tomosynthesis, Bilateral C-view 2D Screening mammogram. Views obtained: bilateral craniocaudal and bilateral mediolateral oblique. Computer Aided Detection was performed. Mammogram Findings: The present examination has been compared to prior imaging studies performed at [facility] on 01/03/2021, 01/09/2022 and 06/19/2022. The breasts are heterogeneously dense, which may obscure small masses. There is no suspicious abnormality in either breast. There are no significant changes from the prior study. Impression: There is no mammographic evidence of malignancy. Annual screening mammography is recommended. If supplemental screeningis desired, breast MRI would be recommended in this patient with heterogeneously dense breasts. OVERALL FINAL ASSESSMENT: BI-RADS CATEGORY 1: Negative. us Jody Durán NP IMG MAMMO PROCEDURES Fin al Result * (ABNORMAL) eGFR (07/07/2023 8:36 AM CDT) eGFR 56(L) >=60 mL/min/1. 73 m2 MICHELA SMITH Comment: Interpretive Data Reference Interval Normal ?>/= 90 mL/min/1.73m2 Mildly decreased* ? 60 - 89 mL/min/1.73m2 Mildly to moderately decreased ?45 - 59 mL/min/1.73m2 Moderately to severely decreased ??30 - 44 mL/min/1.73m2 Severely decreased ?15 - 29 mL/min/1.73m2 Kidney Failure ?< 15 ??mL/min/1.73m2 *Relative to young adult level Estimated glomerular [...] Current interpretive data was last reviewed 2021. [facility], [facility], [place]., [address] Blood 07/07/2023 8:36 AM CDT 07/07/2023 9:00 AM CDT Robb Lr MD LAB BLOOD ORDERABLES Final R esult Performing Organization Address [facility] de Phone Number [id number] [place] [address] * (ABNORMAL) Hemoglobin A1c (06/11/2023 9:28 AM CDT) Hgb A1C 6.3(H) 4.0 - 5.6 % Estimated Average Glucose 134 mg/dL [facility] Comment: The ADA recommends reporting an estimated Average Glucose (eAG) with all Hemoglobin A1c results using the equation derived from a study of 507 normal and diabetic adults. ??Minority populations were underrepresented and children were not included. ?? (Diabetes Care 31:6041-6928, 2008). ??The eAG is not equivalent to a fasting glucose. Blood 06/11/2023 9:28 AM CDT 06/11/2023 9:40 AM CDT Kamar Gandara DO LAB BLOOD ORDERABLES Final Res ult Performing Organization Address [facility] de Phone Number [address] [place] [place] [address] * Dexa Axial Skeleton Bone Density 1 or 2 Site (09/23/2022 10:06 AM CDT) Anatomical Region Laterality Modality Body N/A Mammography 09/23/2022 3:51 PM CDT Narrative 09/23/2022 3:52 PM CDT EXAM DESCRIPTION: DEXA AXIAL SKELETON BONE DENSITY 1 OR MORE SITES REASON FOR STUDY: 67 y/o ?? year old ??F ??with given history of: ??Postmenopausal status. ??Patient takes vitamin-D and calcium. ??History of hysterectomy. ? 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 Maximum height: ??62 ??inches ? Weight: ??213 ??pounds Risk factors: ??Prior fracture COMPARISON: None available FINDINGS: AP LUMBAR SPINE L1-L4: Total BMD is 1.217 g/cm2 T-score is 0.6 LEFT HIP: Total BMD is 1.065 g/cm2 T-score is 0.2 Femoral neck BMD is 0.964 g/cm2 T-score is 0.1 ?? FRAX: FRAX not reported due to T-scores of hip, femoral neck and/or spine being at or above -1.0 (Normal). IMPRESSION: Normal bone mass REFERENCE: Bone mineral density: ? Normal (T-score above or = -1.0) ? Low bone mass ??(T-score between -1.0 and -2.5) replaces the previously used term osteopenia ? Osteoporosis (T-score = or below -2.5) Medical evaluation for secondary causes of low bone mineral density may be appropriate. FRAX is a World Health Organization validated fracture risk assessment tool that calculates a person's 10 year probability of a major osteoporosis related fracture and hip fracture. ??According to the National Osteoporosis Foundation guidelines, postmenopausal women and men age 50 or older with low bone mass and a 10 year probability of a major osteoporosis related fracture = or greater than 20% or a 10 year probability of a hip fracture = or greater than 3% should be considered for treatment. For further information, including treatment recommendations, please refer to the 2019 ISCD Official Positions (http://www.iscd.org) and the NOF's Clinician's Guide to Prevention and Treatment of Osteoporosis (http://www.nof.org/professionals/clinical-guidelines) THIS IS AN ELECTRONICALLY VERIFIED FINAL REPORT 09/23/2022 3:52 PM - Electronically signed by ??Sushila Quintero M.D. TW: TANYA D: ??09/23/2022 3:52 PM T: ??09/23/2022 3:52 PM Report ID: [id number] Reading Location: ??[id number] Procedure Note Sushila Quintero MD - 09/23/2022 EXAM DESCRIPTION: DEXA AXIAL SKELETON BONE DENSITY 1 OR MORE SITES REASON FOR STUDY: 67 y/o year old F with given history of:Postmenopausal status. Patient takes vitamin-D and calcium. History of hysterectomy. 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 IMPRESSION: Normal bone mass REFERENCE: Bone mineral density: Normal (T-score above or = -1.0) Low bone mass (T-score between -1.0 and -2.5) replaces thepreviously used term osteopenia Osteoporosis (T-score = or below -2.5) Medical evaluation for secondary causes of low bone mineral density may be appropriate. FRAX is a World Health Organization validated fracture risk assessmenttool that calculates a person's 10 year probability of a major osteoporosisrelated fracture and hip fracture. According to the National OsteoporosisFoundation guidelines, postmenopausal women and men age 50 or older with low bonemass and a 10 year probability of a major osteoporosis related fracture = or greater than 20% or a 10 year probability of a hip fracture = or greaterthan 3% should be considered for treatment. For further information, including treatment recommendations, please referto the 2019 ISCD Official Positions (http://www.iscd.org) and the NOF's Clinician's Guide to Prevention and Treatment of Osteoporosis (http://www.nof.org/professionals/clinical-guidelines) THIS IS AN ELECTRONICALLY VERIFIED FINAL REPORT 09/23/2022 3:52 PM - Electronically signed by Sushila Quintero M.D. TW: TW Report ID: [id number] Reading Location: [place] [address] us Amina Mccray BUYER IMG DXA PROCEDURES Final Result * Serum Hepatitis C ab (06/18/2012 10:52 AM CDT) HCV ab Negative NEG HISTORICAL RESULTS Serum 06/18/2012 10:5 2 AM CDT Narrative HISTORICAL RESULTS - 06/19/2012 4:50 AM CDT LAB Frequency Standing Order? No Expiration Date: Interpretive Data If confirmation is required, call Laboratory Customer Service to request sample to be sent to [facility] for Hepatitis C Virus (HCV) RNA Detection and Quantitation by Real-Time Reverse Leak Hunter-PCR (RT-PCR). Current interpretive data was last revised on 2011 us Rommel Vaughan DO LAB BLOOD ORDERABLES Final Resul t HISTORICAL RESULTS from Last 3 Months or Most Recently Relevant to Health Maintenance Insurance [employer] MED[employer]ARE SOLUTIONS [employer] MED[employer]IONS Advance Directives For more information, please contact: [phone] * Full Code (Latest Code Status on File) Date Activated Date Inactivated Comments 07/01/2023 3:35 PM 07/03/2023 6:36 PM Care Teams Raise Driller Relationship Specialty Start Date End Date Fidencio French MD [address] [place] [id number] PCP - General Internal Medicine 06/12/22 Dahlia Mendez PA [address] [place] [address] (work) Orthopedic Surgery 07/01/23"
--- OUTSIDE RECORDS SUMMARY | 2024-03-23 01:48 | XMS_ITS ---
Author Organization [facility] Address [address] [address] [place] [address] Care Team Providers Care Procurement Internship Name Role Phone Devonte Chen Unavailable [phone] MEDICATIONS Medication SIG (Take, Route, Frequency, Duration) Notes Start Date End Date Status Vitamin D (Ergocalciferol) 1.25 MG (69473 UT) Take 1 capsule by mouth once a week for 91 Active SOCIAL HISTORY Sex Assigned At : Social History Observation Description Sex Assigned At Female Encounters Encounter Location Date Provider Diagnosis [facility] [place] [facility] [address] [place] [address] 11/25/2023 Devonte Chen PLAN OF TREATMENT Medication Medication Name Sig Start Date Stop Date Notes Vitamin D (Ergocalciferol) 1 .25 MG (27856 UT) Take 1 capsule by mouth once a week for 91 Progress Notes * KIMMY COTTOHDOB:1955 (68 yo F)Acc No.[id number]:11/25/2023 Patient:??ЕКАТЕРИНА COTTO :1955?Age:68 Y?Sex:Fe male Address:[address] [place] [address], [place] [address] * Refills?? Refill Vitamin D (Ergocalciferol) Capsule, 1.25 MG (10135 UT), 13 Capsule, Take 1 capsule by mouth once a week, 91, Refills=0 * true * Date:??
--- OUTSIDE RECORDS SUMMARY | 2024-03-23 01:48 | XMS_ITS | Encounter Summary ---
Author Organization [facility] Address [address] [place] [address] Care Team Providers Care Pigment Making Supervisor Name Role Phone Bao Lyons DO Primary Care Provider [phone] Reason for Visit * Reason Onset Date Comments Follow-up 01/29/2017 Encounter Details Date Type Department Care Team (Late st Contact Info) Description 01/29/2017 Telephone [facility] [address] [address] Julieta Vieira Follow-up Social History Tobacco Use Types Packs/Day Years Used Date Smoking Tobacco: Former Smokeless Tobacco: Never Sex and Gender Information Value Date Recorded Sex Assigned at Not on file Gender Identity Not on file Sexual Orientation Not on file documented as of this encounter Plan of Treatment Not on file documented as of this encounter Visit Diagnoses Not on filedocumented in this encounter Care Teams Pigment Making Supervisor Relationship Specialty Start Date End Date Bao Lyons DO PCP - General Internal Medicine 01/27/17 documented as of this encounter
--- OUTSIDE RECORDS SUMMARY | 2024-03-23 01:48 | XMS_ITS | Encounter Summary ---
Author Organization [facility] Address [address] [place] [address] Care Team Providers Care Domestic Violence Counselor Name Role Phone Unavailable Primary Care Provider Unavailabl e Encounter Details Date Type Department Care Team (Late st Contact Info) Description 01/22/2020 12:00 PM CDT Rapid Evaluation [place] [facility] Community Testing [facility] [address] [place] [address] Social History Tobacco Use Types Packs/Day Years [...]
--- OUTSIDE RECORDS SUMMARY | 2024-03-23 01:48 | XMS_ITS | Patient Health Summary ---
Author Organization [facility] Address [address] [place] [address] Care Team Providers Care Assistive Technology Trainer Name Role Phone Bao Lyons DO Primary Care Provider [phone] Note from [facility],non-owned Affiliates and Associated Physician Practices is amultiple site organization consisting of ambulatory clinics and hospital sitesin [place], [place], [place] and [place]. This disclosure is being madepursuant to the Care Everywhere program and may not contain all information available regarding this patient. Last updated 17.[facility] Allergies No known active allergies Medications * Be aware that medications may not be up to date on this document. Alwaysverify current medications with the patient. * losartan (COZAAR) 100 MG tablet Take 100 mg by mouth once daily * amLODIPine (NORVASC) 10 MG tablet Take 10 mg by mouth once daily * atorvastatin (LIPITOR) 10 MG tablet Take 10 mg by mouth at bedtime * HYDROCHLOROTHIAZIDE PO * METFORMIN HCL ER, MOD, PO * triamcinolone acetonide (KENALOG) 0.1 % cream(Started 01/27/2017) Apply to affected area 2 times daily Reasons: Allergic Contact Dermatitis 1 refill remaining Active Problems No known active problems Social History Tobacco Use Types Packs/Day Years Used Date Smoking Tobacco: Former Smokeless Tobacco: Never Sex and Gender Information Value Date Recorded Sex Assigned at Not on file Gender Identity Not on file Sexual Orientation Not on file Last Filed Vital Signs Vital Sign Reading Time Taken Comments Blood Pressure 118/70 01/27/2017 6:00 PM CARBURETOR REPAIRER Pulse 83 01/27/2017 6:00 PM CARBURETOR REPAIRER Temperature 36.7 ??C (98.1 ??F) 01/27/2017 6:00 PM CS T Respiratory Rate 17 01/27/2017 6:00 PM CARBURETOR REPAIRER Oxygen Saturation - - Inhaled Oxygen Concentration - - Weight 99.8 kg (220 lb) 01/27/2017 6:00 PM CARBURETOR REPAIRER Height 154.9 cm (5' 1 ) 01/27/2017 6:00 PM CARBURETOR REPAIRER Body Mass Index 41.57 01/27/2017 6:00 PM CARBURETOR REPAIRER Care Teams Assistive Technology Trainer Relationship Specialty Start Date End Date Bao Lyons DO PCP - General Internal Medicine 01/27/17
--- OUTSIDE RECORDS SUMMARY | 2024-03-23 01:48 | XMS_ITS | Clinical Summary ---
Author Organization [facility] Address [address] [place] [address] Care Team Providers Care Commercial Portfolio Manager Name Role Phone Bao Lyons DO Primary Care Provider [phone] Source Comments [facility],non-owned Affiliates and Associated Physician Practices is amultiple site organization consisting of ambulatory clinics and hospital sitesin [place], [place], [place] and [place]. This disclosure is being madepursuant to the Care Everywhere program and may not contain all information available regarding this patient. Last updated 17.[facility] Allergies No known active allergies Medications * Be aware that medications may not be up to date on this document. Alwaysverify current medications with the patient. Medication Sig Dispensed Refills Start Date End Date Status losartan (COZAAR) 100 MG tablet Take 100 mg by mouth once daily Active amLODIPine (NORVASC) 10 MG tablet Take 10 mg by mouth once daily Active atorvastatin (LIPITOR) 10 MG tablet Take 10 mg by mouth at bedtime Active HYDROCHLOROTHIAZIDE PO Active METFORMIN HCL ER, MOD, PO Active triamcinolone acetonide (KENALOG) 0.1 % creamIndications:All ergic Contact Dermatitis Apply to affected area 2 times daily Reasons: Allergic Contact Dermatitis 30 g 1 01/27/2017 Active Active Problems No known active problems Social History Tobacco Use Types Packs/Day Years Used Date Smoking Tobacco: Former Smokeless Tobacco: Never Sex and Gender Information Value Date Recorded Sex Assigned at Not on file Gender Identity Not on file Sexual Orientation Not on file Last Filed Vital Signs Vital Sign Reading Time Taken Comments Blood Pressure 118/70 01/27/2017 6:00 PM CYBER OPS PLANNER Pulse 83 01/27/2017 6:00 PM CYBER OPS PLANNER Temperature 36.7 ??C (98.1 ??F) 01/27/2017 6:00 PM CS T Respiratory Rate 17 01/27/2017 6:00 PM CYBER OPS PLANNER Oxygen Saturation - - Inhaled Oxygen Concentration - - Weight 99.8 kg (220 lb) 01/27/2017 6:00 PM CYBER OPS PLANNER Height 154.9 cm (5' 1 ) 01/27/2017 6:00 PM CYBER OPS PLANNER Body Mass Index 41.57 01/27/2017 6:00 PM CYBER OPS PLANNER Plan of Treatment Health Maintenance Due Date Last Done Comments BONE DENSITY TESTING 1955 COLOGUARD (AGES 45-75) - COL ON CA SCREENING 1955 COLON MONITORING 1955 COLONOSCOPY - COLON CA SCREENING 1955 CT COLONOGRAPHY - COLON CA SCREENING 1955 Colorectal Cancer Screening 1955 FIT - COLON CA SCREENING 1955 FLEX SIG - COLON CA SCREENING 1955 MAMMOGRAM 1955 HEPATITIS C SCREENING 01/14/1974 DTAP/TDAP/TD VACCINES (1 - Tdap) 01/18/1975 ZOSTER VACCINE (1 of 2) 01/18/2006 Respiratory Syncytial Virus (RSV) Vaccine Pt: or over 60 yrs (1 - Risk 60-74 years 1-dose series) 2016 SCREENING FOR DIABETES 01/27/2017 PNEUMOCOCCAL VACCINE 65+ (1 of 1 - PCV) 01/18/2021 DEPRESSION SCREENING 03/24/2023 COVID-19 VACCINE (1 - 2023-2 5 season) 2023 INFLUENZA VACCINE (#1) 2023 HEPATITIS B VACCINE Aged Out No longe r eligible based on patient's age to complete this topic HIB VACCINE Aged Out No longer eligi ble based on patient's age to complete this topic HPV VACCINE Aged Out No longer eligi ble based on patient's age to complete this topic MENINGOCOCCAL VACCINE Aged Out No richmond juan alberto eligible based on patient's age to complete this topic Care Teams Commercial Portfolio Manager Relationship Specialty Start Date End Date Bao Lyons DO PCP - General Internal Medicine 01/27/17
--- OUTSIDE RECORDS SUMMARY | 2024-03-23 01:48 | XMS_ITS | Encounter Summary ---
Author Organization [facility] Address [address] [place] [address] Care Team Providers Care Television News Producer Name Role Phone Unavailable Primary Care Provider Unavailabl e Encounter Details Date Type Department Care Team (Late st Contact Info) Description 01/22/2020 12:00 PM CDT Rapid Evaluation [place] [facility] Community Testing [facility] [address] [place] [address] Social History Tobacco Use Types Packs/Day Years [...]
--- OUTSIDE RECORDS SUMMARY | 2024-03-23 01:48 | XMS_ITS | Encounter Summary ---
Author Organization [facility] Address [address] [place] [address] Care Team Providers Care Braille And Talking Books Clerk Name Role Phone Bao Lyons DO Primary Care Provider [phone] Reason for Visit * Reason Comments Rash stated had rolled on some new perfume on neck yesterday Encounter Details Date Type Department Care Team (Late st Contact Info) Description 01/27/2017 6:20 PM INPATIENT NURSING AIDE Office Visit [facility] AT [address] [address] Provider, Rin Exp Namesdi Contact dermatitis due to cosmetics, unspecified contact dermatitis type (Primary Dx) Social History Tobacco Use Types Packs/Day Years Used Date Smoking Tobacco: Former Smokeless Tobacco: Never Sex and Gender Information Value Date Recorded Sex Assigned at Not on file Gender Identity Not on file Sexual Orientation Not on file documented as of this encounter Last Filed Vital Signs Vital Sign Reading Time Taken Comments Blood Pressure 118/70 01/27/2017 6:00 PM INPATIENT NURSING AIDE Pulse 83 01/27/2017 6:00 PM INPATIENT NURSING AIDE Temperature 36.7 ??C (98.1 ??F) 01/27/2017 6:00 PM CS T Respiratory Rate 17 01/27/2017 6:00 PM INPATIENT NURSING AIDE Oxygen Saturation - - Inhaled Oxygen Concentration - - Weight 99.8 kg (220 lb) 01/27/2017 6:00 PM INPATIENT NURSING AIDE Height 154.9 cm (5' 1 ) 01/27/2017 6:00 PM INPATIENT NURSING AIDE Body Mass Index 41.57 01/27/2017 6:00 PM INPATIENT NURSING AIDE documented in this encounter Patient Instructions * Patient Instructions* Jian Arita APRN-CNP - 01/27/2017 6:10 PM INPATIENT NURSING AIDE Images from the original note were not included. Contact Dermatitis WHAT YOU NEED TO KNOW: What is contact dermatitis? Contact dermatitis is a skin rash. It develops when you touch somethingthat irritates your skin or causes an allergic reaction. What causes contact dermatitis? The following items are common irritants or allergens that can cause contact dermatitis: ?? Soaps, lotions, or makeup ?? Chemicals, such as those in cleaning products ?? Urine or bowel movement ?? Coarse paper, glass, or wool ?? Plants, such as poison donta or poison oak ?? Certain metals, such as chromium or nickel ?? Rubber or latex ?? Certain topical medicines, such as antibiotic or steroid cream What are the signs and symptoms of contact dermatitis? ?? Red, swollen, painful rash ?? Skin that itches, stings, or oconnor ?? Dry, scaly, or crusty skin patches ?? Bumps or blisters ?? Fluid draining from blisters How is contact dermatitis diagnosed? Your healthcare provider can diagnose your rash by looking at it. He will ask when your signs and symptoms started. Tell him how long they last and what triggers them. He may ask if you have been exposed to any new chemicals, products, or topical medicines. How is contact dermatitis treated? The best treatment is to remove whatever irritant or allergen causes your rash. You may also need medicines to decrease itching and swelling. They will be given as a topical medicine to apply to your rash or as a pill. How can I manage my symptoms? ?? Take short baths or showers in cool water. Use mild soap or soap-free cleansers. Add oatmeal, baking soda, or cornstarch to the bath water to help decrease skin irritation. ?? Avoid skin irritants , such as makeup, hair products, soaps, and cleansers. Use products that donot contain perfume or dye. ?? Apply a cool compress to your rash. This will help soothe your skin. ?? Keep your skin moist. Rub unscented cream or lotion on your skin to prevent dryness and itching.Do this right after a bath or shower when your skin is still damp. Call 911 for any of the following: ?? You have sudden trouble breathing. ?? Your throat swells and you have trouble eating. ?? Your face is swollen. When should I contact my healthcare provider? ?? You have a fever. ?? Your blisters are draining pus. ?? Your rash spreads or does not get better, even after treatment. ?? You have questions or concerns about your condition or care. CARE AGREEMENT: You have the right to help plan your care. Learn about your health condition and how it may be treated. Discuss treatment options with your caregivers to decide what care you want to receive. You always have the right to refuse treatment. The above information is an clinical social work aide only. It is not intended as medical advice for individual conditions or treatments. Talk to your doctor, nurse or pharmacist before following any medical regimen to see if it is safe and effective for you. ?? 2016 [employer]. Information is for End User's use only and may not be sold, redistributed or otherwise used for commercial purposes. All illustrations and images included in CareNotes?? are the copyrighted property of [employer]. or [employer]. TIENT NURSING AIDE documented in this encounter Progress Notes * Jian Arita APRN-CNP - 01/27/2017 6:00 PM CST [facility] Chief Complaint Patient presents with ??? Rash SUBJECTIVE: General The history is provided by the patient (62 y/o f). This is a new problem. The current episode started yesterday. The problem occurs constantly. The problem has been gradually worsening. The patient is experiencing no pain. Body Location: rash on neck and down to chest, mild itching, no pain Pertinent negatives include no headaches. Nothing aggravates the symptoms. Relieved by: [email or web address] Past Medical History: Diagnosis Date ??? DM (diabetes mellitus) ??? HTN (hypertension) ??? Hyperlipemia No current outpatient prescriptions on file prior to visit. No current facility-administered medications on file prior to visit. Past Surgical History: Procedure Laterality Date ??? Breast Lumpectomy ??? HYSTEROTOMY Social History Social History ??? Marital status: Single Spouse name: N/A ??? Number of children: N/A ??? Years of education: N/A Occupational History ??? Not on file. Social History Main Topics ??? Smoking status: Former Smoker ??? Smokeless tobacco: Never Used ??? Alcohol use Not on file ??? Drug use: Not on file ??? Sexual activity: Not on file Other Topics Concern ??? Not on file Social History Narrative ??? No narrative on file No family history on file. Current Outpatient Prescriptions Medication Sig Dispense Refill ??? losartan (COZAAR) 100 MG tablet Take 100 mg by mouth once daily ??? amLODIPine (NORVASC) 10 MG tablet Take 10 mg by mouth once daily ??? atorvastatin (LIPITOR) 10 MG tablet Take 10 mg by mouth at bedtime ??? HYDROCHLOROTHIAZIDE PO ??? METFORMIN HCL ER, MOD, PO ??? triamcinolone acetonide (KENALOG) 0.1 % cream Apply to affected area 2 times daily Reasons: Allergic Contact Dermatitis 30 g 1 No current facility-administered medications for this visit. No Known Allergies REVIEW OF SYSTEMS: Review of Systems Constitutional: Negative. Skin: Positive for itching and rash. Rt side of neck; scattered bumps, few, itching, no pain Uncertain if used perfume on it Neurological: Negative for headaches. OBJECTIVE: General appearance: alert, well appearing, and in no distress. BP 118/70 (BP SITE: RIGHT ARM, BP POSITION: SITTING, BP CUFF SIZE: Large Adult) Pulse 83 Temp 98.1 ??F (Oral) Resp 17 Ht 1.549 m (5' 1 ) Wt 99.8 kg (220 lb) BMI 41.57 kg/m2 Physical Exam Constitutional: She is well-developed, well-nourished, and in no distress. HENT: Mouth/Throat: Oropharynx is clear and moist. Neck: Normal range of motion. Neck supple. Cardiovascular: Normal rate and regular rhythm. Pulmonary/Chest: Effort normal and breath sounds normal. Skin: Rash noted. There is erythema. Scattered macular, papular rash on rt side of neck, collar bone, and upper chest ASSESSMENT: No results found for this visit on 01/27/17. Encounter Diagnosis Name Primary? Contact dermatitis due to cosmetics, unspecified contact dermatitis type Yes PLAN: Orders Placed This Encounter ??? triamcinolone acetonide (KENALOG) 0.1 % cream Sig: Apply to affected area 2 times daily Reasons: Allergic Contact Dermatitis Dispense: 30 g Refill: 1 TIENT NURSING AIDE documented in this encounter Plan of Treatment Not on file documented as of this encounter Visit Diagnoses Diagnosis Contact dermatitis due to cosmetics, unspecified contact dermatitis type- Primary documented in this encounter Care Teams Braille And Talking Books Clerk Relationship Specialty Start Date End Date Bao Lyons DO PCP - General Internal Medicine 01/27/17 documented as of this encounter
--- OUTSIDE RECORDS SUMMARY | 2024-03-23 01:48 | XMS_ITS | Referral Summary ---
Author Organization [facility] Address [address] [place] [address] Care Team Providers Care Airfield Defence Guard Name Role Phone Bao Lyons DO Primary Care Provider [phone] Source Comments [facility],non-owned Affiliates and Associated Physician Practices is amultiple site organization consisting of ambulatory clinics and hospital sitesin [place], [place], [place] and [place]. This disclosure is being madepursuant to the Care Everywhere program and may not contain all information available regarding this patient. Last updated 17.[facility] Allergies No known active allergies Medications * [...] Comments Blood Pressure 118/70 01/27/2017 6:00 PM MANAGER BANKING Pulse 83 01/27/2017 6:00 PM MANAGER BANKING Temperature 36.7 ??C (98.1 ??F) 01/27/2017 6:00 PM CS T Respiratory Rate 17 01/27/2017 6:00 PM MANAGER BANKING Oxygen Saturation - - Inhaled Oxygen Concentration - - Weight 99.8 kg (220 lb) 01/27/2017 6:00 PM MANAGER BANKING Height 154.9 cm (5' 1 ) 01/27/2017 6:00 PM MANAGER BANKING Body Mass Index 41.57 01/27/2017 6:00 PM MANAGER BANKING Plan of Treatment Not on file Care Teams Airfield Defence Guard Relationship Specialty Start Date End Date Bao Lyons DO PCP - General Internal Medicine 01/27/17
--- OUTSIDE RECORDS SUMMARY | 2024-03-23 01:48 | XMS_ITS | Encounter Summary ---
Author Organization [facility] Address [address] [place] [address] Care Team Providers Care Energy Derivatives Trader Name Role Phone Unavailable Primary Care Provider Unavailabl e Encounter Details Date Type Department Care Team (Late st Contact Info) Description 01/22/2020 Lab Requisition [facility] Community Testing [facility] [address] [place] [address] [place] [address] [place] [address] Social History Tobacco Use Types Packs/Day Years Used Date Smoking Tobacco: Never Assessed Comments Unknown Sex and Gender Information Value Date Recorded Sex Assigned at Not on file Legal Sex Female 11:07 AM CDT Gender Identity Not on file Sexual Orientation Not on file documented as of this encounter Plan of Treatment Not on file documented as of this encounter Procedures Procedure Name Priority Date/Time Associated Diagnosis Comments SARS-COV-2 PCR [facility] ONLY Routine 01/22/2020 11:28 AM CDT documented in this encounter Visit Diagnoses Not on filedocumented in this encounter
--- OUTSIDE RECORDS SUMMARY | 2024-03-23 01:48 | XMS_ITS | Data Portability ---
Author Organization [place] [facility] [employer], Main Office Address [address] [place] [address] Assessment Encounter Date Assessment Date Assessment LastModified by Organization Details LastModified Time 06/20/2023 06/20/2023 the patient left without being seen she states she was having second thoughts about having the surgerynd she requested the labs and ekg be sent to us and since they did not send them to us she does not want to have the surgery [email or web address] Not available 06/20/2023 14:22:36 Plan of Treatment Reminders Order Date Submit Date Provider Last Modified By Organization Details Last Modified Time Details Appointments None recorded. Lab lipid panel, serum 2023 [email or web address] [facility] (Lab), [address] [place], [address], 4 08:42:50 Referral cardiologis t referral 2023 [email or web address] [place], [address] [facility], [facility] [address], [address], 4 08:34:10 Procedures colonoscopy screening (PROC) 2023 [email or web address] Chaim sterling MD, [address] [facility] [address], [facility] [address], [place], [address], 4 08:43:00 Surgeries None recorded. Imaging None recorded. Medication Orders valacyclovi r 500 mg tablet 2023 [facility], [address] [facility], [place], [address], 4 14:54:21 penciclovir 1 % topical cream 2023 024 [facility], [address] [facility], [place], [address], 14:54:20 Patient TargetsNo targets recorded. Patient InstructionsNo instructions recorded. 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 Referring Physician: Fidencio French, Internal Medicine, Encounter Date: 10/14/2023 Results Created Date Observation Date Name Description Value Unit Range Abnormal Flag Note LastModifiedBy Organization Detail LastModifiedTime 05/20/19 24 05/20/2023 PET, myoca rdial perfu israel, multi ple [facility] [id number] Polo carvalho Name: KIMMY PEDERSEN Access ion #: [id number] Sex: F : 1954 1 Dictat ed By: Sarah Branham Attend ing Physic robina: ROSA FRENCH ER Orderi ng Physic robina: ROSA FRENCH ER Exam Date: 2023 06:48 AM Exam Name: NM MYOCAR D SPECT MULT Admitt ing Diagno sis(es ): Proced ure: NM MYOCAR D SPECT MULT Exam Date: 024 6:48 AM Reason for study/ Clinic al Histor y: Chest pain, dyspne a Compar tegan Study: None availa ble at time of dictat ion. Myocar dial Perfus ion Study with SPECT Techni que: The patien t receiv ed an intrav enous inject ion of 10 mCi of techne tium-9 9m Sestam ibi while at rest. After a short delay, SPECT tomogr aphic images of the heart were obtain ed. The patien t then went to the stress lab where they receiv ed an intrav enous Lexisc an utiliz ing standa rd protoc ol. 28 mCi of techne tium-9 9m Sestam ibi was inject ed intrav enousl y immedi ately after the start of the infusi on. Gated SPECT tomogr aphic images of the heart were acquir ed and proces sed. Findin gs: Rotati ng planar images show no signif icant attenu ation artifa ct. The left ventri cular size is within normal limits . Subtle nonrev ersibl e defect is presen t at the apex. Gated portio n of the study shows normal wall motion and myocar dial thicke aguila. The left ventri cular ejecti on fracti on is 41%. (caleb l greate r than 50%) Impres israel: Subtle nonrev ersibl e defect is presen t at the apex which may repres ent artifa ct versus chroni c infarc facundo tissue . No areas of revers ibilit y to sugges t acute ischem ia. The left ventri cular ejecti on fracti on is 41%. Page 1 [facility] [address] [place] [address] [phone] Patien t Name: KIMMY PEDERSEN Access ion #: [id number] Sex: F : 1954 1 Dictat ed By: Sarah Branham Attend ing Physic robina: JOSELYN VILLANUEVA Physic robina: ROSA FRENCH Exam Date: 2023 06:48 AM Exam Name: NM MYOCAR D SPECT MULT Admitt ing Diagno sis(es ): Electr onical ly Signed by: Sarah Branham at 2023 12:43: 33 PM Page 2 [email or web address] [facility] (Imaging) [address] [place], [address], 06/03/2023 07:49:07 10/24/1910/23/2023 MAMMO , scree aguila, digit al, bilat eral No observ ation record ed. [email or web address] Not Available 2023 12:53:06 11/20/19 24 11/20/2023 US, echoc arlyndseyo gram No observ ation record ed. BARCODE Not Available 2023 18:25:18 Result Notes None recorded. Problems Name Problem SNOMED Code Status Onset Date Resolution Date Notes Provider Name and Address Organization Details Recorded Time Closed fracture of metatarsa l bone 35349275 Active Not Available [facility] 3 06:34:53 Fracture of lower leg 195344071 Active Not Available [facility] 3 06:34:53 Tibialis tendiniti s 48628190 Completed 09/10/2022 Nisha schumacher, RMA null, [place] [facility] 3 14:31:46 Hyperlipi demia 78260145 Active 2022 Not Available [facility] 3 06:34:53 Essential hypertens ion 24189542 Active 2022 Not Available [facility] 3 06:34:53 Diabetes mellitus 08605910 Active 2022 Not Available [facility] 3 06:34:53 Gastroeso phageal reflux disease 949896563 Active 2022 Not Available [facility] 3 06:34:53 Sleep apnea 45771663 Active 2022 Not Available [facility] 3 06:34:53 Obesity 449186402 Active 2022 Not Available [facility] 3 06:34:53 Lymphedem a of lower extremity 348721742 Active 2022 Not Available [facility] 3 06:34:53 Tear of meniscus of knee 417688282 Active 2022 Not Available [facility] 3 06:34:53 Anemia 467451039 Active 2022 Not Available [facility] 3 06:34:53 Mass of right breast 28687814163 382211 Active 2022 Not Available [facility] 3 06:34:53 Kidney disease 27492063 Active 2022 Not Available [facility] 3 06:34:53 Type 2 diabetes mellitus without complicat ion 380221933 Active 2022 Not Available [facility] 3 06:34:53 Constipat ion 25881843 Active 2022 MINH Escalante null, [place] [facility] 3 08:38:26 Chronic constipat ion 400093715 Active 2023 Idalia Hartley MD [address] [facility] [address], [place], [address] , [place] [facility] 4 16:09:47 Dyspnea on exertion 95464429 Active 2023 Fidencio French MD [address] [facility], [facility] [address], [place], [address] , [place] [facility] [employer] 4 12:30:58 Osteoarth ritis 483932045 Active 2023 Zulay Washington NP [address] [facility], [address] [address], [place], [address] , [place] [facility] [employer] 4 13:59:06 Palpitati ons 23370789 Active 2023 Fidencio French MD [address] [facility], [address] [address], [place], [address] , [facility] 4 16:15:17 Herpes simplex 11923786 Active 2023 Zulay Washington NP [address] [facility], [address] [address], [place], [address] , [place] [facility] [employer] 4 14:48:51 Problem Notes None recorded. Procedures Surgical History Date Name Laterality Status Provider Name and Address Organization Details Recorded Time excision of ruptured ectopic tubal completed MINH Berrios [place] [facility] [place] [facility] 06/06/2022 16:16:16 Tubal Ligation completed MINH Berrios [place] [facility] 06/06/2022 16:16:28 partial hysterectomy completed MINH Berrios [place] [facility] [place] [facility] 06/06/2022 16:16:50 biopsy of breast completed MINH Berrios [place] [facility] 06/06/2022 16:17:30 Cyst Removal completed MINH Berrios [place] [facility] 06/06/2022 16:17:49 Imaging Results Imaging Date Name Status LastModified by Organization Details LastModified Time 05/20/2023 PET, myocardial perfusion, multiple completed [email or web address] [facility] (Imaging) [address], [place], [address], 06/03/2023 07:49:07 10/23/2023 MAMMO, screening, digital, bilateral completed [email or web address] Information not available 11/05/2023 12:53:06 11/20/2023 US, echocardiogram completed [facility] Inform ation not available 11/20/2023 18:25:18 Procedure Notes None recorded. Medical Equipment None Reported. Allergies No known drug allergies Medications Name Sig Start Date Stop Date Status Note LastModified by Organization Details LastModified Time amoxicill in 500 mg capsule TAKE FOUR CAPSULES BY MOUTH ONE HOUR BEFORE APPOINTM ENT active Not Available Not Available No t Available atorvasta tin 20 mg tablet TAKE 1 TABLET BY MOUTH ONCE DAILY AT BEDTIME active Not Available Not Available No t Available ketoconaz ole 2 % shampoo SHAMPOO HAIR TWICE WEEKLY 10/02 completed Not Available Not Available Not Available atorvasta tin 10 mg tablet TK 1 T PO QD 10/02 completed Not Available Not Available Not Available azithromy chino 250 mg tablet TAKE 2 TABLETS BY MOUTH ON DAY 1, AND THEN TAKE 1 TABLET BY MOUTH ONCE A DAY ON DAY 2 THROUGH DAY 5 06/06 completed Not Available Not Available Not Available metronida zole 0.75 % (37.5 mg/5 gram) vaginal gel INSERT 1 APPLICAT ORFUL VAGINALL Y AT BEDTIME FOR 5 NIGHTS active Not Available Not Available No t Available Accu-Chek Softclix Lancets USE TO CHECK GLUCOSE ONCE DAILY active Not Available Not Available No t Available valacyclo vir 500 mg tablet TAKE 1 TABLET BY MOUTH TWICE DAILY FOR 5 DAYS active Not Available Not Available No t Available penciclov ir 1 % topical cream Apply 1 applicat ion 6 times a day by topical route for 5 days. 2023 active Not Available Not Available Not Avai lable sulfameth oxazole 800 mg-trimet hoprim 160 mg tablet TAKE 1 TABLET BY MOUTH EVERY 12 HOURS FOR 10 DAYS 06/06 completed Not Available Not Available Not Available tramadol 50 mg tablet TAKE 1 TABLET BY MOUTH TWICE DAILY NEEDED FOR PAIN 06/06 completed Not Available Not Available Not Available triamcino lone acetonide 0.025 % topical cream APPLY A THIN LAYER TOPICALL Y TO THE AFFECTED AREA IN THE MORNING AND IN THE EVENING active Not Available Not Available No t Available meclizine 25 mg tablet 10/02 completed Not Available Not Available Not Available amlodipin e 10 mg tablet TAKE 1 TABLET BY MOUTH ONCE DAILY active Not Available Not Available No t Available benzonata te 100 mg capsule TAKE 1 CAPSULE BY MOUTH EVERY 8 HOURS NEEDED 09/10 completed Not Available Not Available Not Available bisacodyl 10 mg rectal supposito ry INSERT 1 SUPPOSIT ORY RECTALLY ONCE DAILY 04/23 completed Uses OTC Not Available Not Available Not Available cephalexi n 500 mg capsule TAKE 1 CAPSULE BY MOUTH IN THE MORNING AND 1 AT BEDTIME active Not Available Not Available No t Available lidocaine 5 % topical patch USE 1 PATCH EXTERNAL LY ONCE DAILY REMOVE AND DISCARD PATCH WITHIN 12 HOURS OR DIRECTED BY DOCTOR 10/23 completed Not Available Not Available Not Available hydrochlo rothiazid e 12.5 mg capsule 10/02 completed Not Available Not Available Not Available ergocalci ferol (vitamin D2) 1,250 mcg (50,000 unit) capsule TAKE 1 CAPSULE BY MOUTH ONCE A WEEK active Not Available Not Available No t Available methylpre dnisolone 4 mg tablets in a dose pack 10/02 completed Not Available Not Available Not Available ketoconaz ole 2 % topical cream APPLY BID TO RASH 10/02 completed Not Available Not Available Not Available losartan 100 mg tablet TAKE 1 TABLET BY MOUTH ONCE DAILY active Not Available Not Available No t Available fluticaso ne propionat e 50 mcg/actua tion nasal spray,rosey pension USE 2 SPRAY(S) IN EACH NOSTRIL 1 TO 2 TIMES DAILY 05/16 completed Not Available Not Available Not Available calcitrio l 0.25 mcg capsule TAKE 1 CAPSULE BY MOUTH ONCE DAILY active Not Available Not Available No t Available oxycodone 5 mg tablet TAKE 1 TABLET BY MOUTH EVERY 4 HOURS NEEDED FOR PAIN 10/23 completed Not Available Not Available Not Available hydrochlo rothiazid e 12.5 mg tablet TAKE 1 TABLET BY MOUTH ONCE DAILY FOR 90 DAYS 01/[address] Post Not Available Not Available Not Available peg 3350-elec trolytes 236 gram-22.7 4 gram-6.74 gram-5.86 gram solution USE DIRECTED 05/26 completed Not Available Not Available Not Available oxycodone 10 mg tablet 10/23 completed Not Available Not Available Not Available Linzess 145 mcg capsule TAKE 1 CAPSULE BY MOUTH IN THE MORNING active Not Available Not Available No t Available Eliquis 2.5 mg tablet TAKE 1 TABLET BY MOUTH TWICE DAILY active Not Available Not Available No t Available Farxiga 10 mg tablet TAKE 1 TABLET BY MOUTH ONCE DAILY active Not Available Not Available No t Available Trulicity 1.5 mg/0.5 mL subcutane ous pen injector INJECT 1.5 MG BY SUBCUTAN EOUS ROUTE ONCE A WEEK active Not Available Not Available No t Available Trulicity 0.75 mg/0.5 mL subcutane ous pen injector Inject 175 mg every week by subcutan eous route. 03/13 completed changed to Ozempic 0.5mg Not Available Not Available Not Available Linzess 72 mcg capsule TAKE 1 CAPSULE BY MOUTH ONCE DAILY ON AN EMPTY STOMACH AT LEAST 30 MINUTES BEFORE 1ST MEAL OF THE DAY 05/26 completed Not Available Not Available Not Available Accu-Chek Guide test strips USE 1 TEST STRIP ONCE DAILY active Not Available Not Available No t Available Accu-Chek Guide Me Glucose Meter USE TO TEST BLOOD SUGAR DAILY 05/16 completed Not Available Not Available Not Available BinaxNOW COVID-19 Ag Self Test kit USE DIRECTED 06/06 completed Not Available Not Available Not Available Ozempic 0.25 mg or 0.5 mg (2 mg/3 mL) subcutane ous pen injector INJECT 0.5 MG SUBCUTAN EOUSLY ONCE WEEKLY 07/27 completed pt resumed Trulicit y Not Available Not Available Not Available Vitals Date Recorded Body height Body mass index (BMI) Body weight Body temperature Heart rate Oxygen saturation Oxygen saturation in Arterial blood by Pulse oximetry Systolic blood pressure Diastolic blood pressure Provider Name and Address Organization Details Last Updated DateTime 03/05/202 4 154.94 cm 39.7 kg/m2 34502.4 g 98.6 [degF] 80 /min 94 % 94 % 128 mm[Hg] 76 mm[Hg] Mariah connor [employer] [facility] 4 12:23:35 Date Recorded Body height Body mass index (BMI) Body weight Body temperature Heart rate Oxygen saturation Oxygen saturation in Arterial blood by Pulse oximetry Systolic blood pressure Diastolic blood pressure Provider Name and Address Organization Details Last Updated DateTime 4 154.94 cm 38.5 kg/m2 16805.8 4 g 99.1 [degF] 84 /min 94 % 94 % 150 mm[Hg] 90 mm[Hg] Mariah connor [employer] [facility] 4 14:06:25 Date Recorded Body height Body mass index (BMI) Body weight Body temperature Oxygen saturation Oxygen saturation in Arterial blood by Pulse oximetry Heart rate Systolic blood pressure Diastolic blood pressure Provider Name and Address Organization Details Last Updated DateTime 4 154.94 cm 38.5 kg/m2 78166.8 4 g 97.7 [degF] 98 % 98 % 83 /min 130 mm[Hg] 80 mm[Hg] Nisha vinson Sheela [employer] [facility] 4 12:02:17 Date Recorded Body height Body mass index (BMI) Body weight Body temperature Heart rate Oxygen saturation Oxygen saturation in Arterial blood by Pulse oximetry Systolic blood pressure Diastolic blood pressure Provider Name and Address Organization Details Last Updated DateTime 4 154.94 cm 36.8 kg/m2 05024.5 1 g 97.8 [degF] 88 /min 98 % 98 % 130 mm[Hg] 84 mm[Hg] Nisha Guillen alisson [employer] [facility] 4 15:30:07 Date Recorded Body height Body mass index (BMI) Body weight Body temperature Heart rate Oxygen saturation Oxygen saturation in Arterial blood by Pulse oximetry Systolic blood pressure Diastolic blood pressure Provider Name and Address Organization Details Last Updated DateTime 4 154.94 cm 37 kg/m2 52222.1 g 98.3 [degF] 80 /min 99 % 99 % 128 mm[Hg] 78 mm[Hg] Ada Carter [employer] 14:33:31 Social History Question Answer Notes LastModified by Organizat ion Details LastModified Time Tobacco Smoking Status Former Smoker Nisha Dsouzacandace, MINH tate, [place] - [facility] 06/06/2022 16:11:37 Do You Have An Advance Directive? No Information not available 06/06/2022 What Is Your Level Of Alcohol Consumption? None Information not available 06/06/2022 Are You Blind Or Do You Have Difficulty Seeing? No Information not available 06/06/2022 What Is Your Level Of Caffeine Consumption? Moderate Information not available 06/06/2022 Are You Currently Employed? No Information not available 06/06/2022 Are You Deaf Or Do You Have Serious Difficulty Hearing? No Information not available 06/06/2022 What Type Of Diet Are You Following? REGULAR Information not available 06/06/2022 What Is The Highest Grade Or Level Of School You Have Completed Or The Highest Degree You Have Received? [id number] Information not available 06/06/2022 Have There Been Any Changes To Your Family Or Social Situation? No Information not available 06/06/2022 Do You Use Insect Repellent Routinely? No Information not available 06/06/2022 Where Do You Live? SingleLevelHouse Information not available 06/06/2022 What Was The Date Of Your Most Recent Tobacco Screening? 06/06/2022 Information not available 06/06/2022 Do You Have Any Pets? No Information not available 06/06/2022 What Is Your Relationship Status? Single Information not available 06/06/2022 Do You Use Your Seat Belt Or Car Seat Routinely? Yes Information not available 06/06/2022 Do You Have Smoke And Carbon Monoxide Detectors In Your Home? Yes Information not available 06/06/2022 At What Age Did You Start Smoking Tobacco? 20 Information not available 06/06/2022 Are You Passively Exposed To Smoke? No Information not available 06/06/2022 Are There Any Smokers In Your House? No Information not available 06/06/2022 Do You Feel Stressed (tense, Restless, Nervous, Or Anxious, Or Unable To Sleep At Night)? [id number] Worried About Her Health Information not available 06/06/2022 Do You Use Any Illicit Or Recreational Drugs? No Information not available 06/06/2022 Do You Use Sunscreen Routinely? No Information not available 06/06/2022 Have You Recently Traveled Abroad? No Information not available 06/06/2022 Do You Have Any Dietary Restrictions? No Information not available 06/06/2022 Sex: Female Functional Status Question Answer Note LastModified by Organizat ion Details LastModified Time Do you have difficulty walking or climbing stairs? Yes right leg torn miniscus Information not available 06/06/2022 Do you have transportation difficulties? No Information not available 06/06/2022 Are you able to walk? YESWOREST Information not available 06/06/2022 Do you have difficulty doing errands alone? No Information not available 06/06/2022 Are you able to care for yourself? Yes Information n ot available 06/06/2022 Do you have difficulty dressing or bathing? No Information not available 06/06/2022 What is your exercise level? Occasional Information not available 06/06/2022 Mental Status Question Answer Note LastModified by Organization D etails LastModified Time Do you have difficulty concentrating, remembering or making decisions? No Information no t available 06/06/2022 Family History Relationship Description Onset Age of this Age Resolved Age Notes LastModified by Organization Details LastModified Time Mother Heart disease Not available 16:08:06 Mother Essential hypertension Not available 06/06/2022 16:08:15 Paternal Aunt Diabetes mellitus Not available 16:08:28 Paternal Uncle Diabetes mellitus Not available 16:08:28 Maternal Grandfather Family history of malignant neoplasm Throat Not available 16:08:55 Sister Family history of malignant neoplasm Breast Not available 16:08:55 Sister Disorder of thyroid gland Not available 16:09:18 Medical History No medical history recorded. Gynecological HistoryNo gynecological history recorded. Obstetrics History GPAL:G 0 P 0 0 0 0 Past Encounters Encounter ID Performer Location Encounter Start Date Encounter Closed Date Diagnosis/Indication Diagnosis SNOMED-CT Code Diagnosis ICD10 Code [id number] Fidencio French MD [facility] Internal Med [facility] [address] [facility] [place] [address] 06/06/2022 15:34:38 06/06/2022 17:26:13 Adult health examination 607634851 Z00.00 Diabetes mellitus 023981 09 E11.9 Hyperlipidemia 85486313 E78.5 Essential hypertension 87994614 I10 Gastroesop hageal reflux disease 316721183 K21.9 Sleep apnea 79152169 G47 .30 Obesity 280089550 E66.9 Lymphedema of lower extremity 505963809 I89.0 Tear of me niscus of knee 538237224 S83.206A Anemia 447873566 D64.9 [id number] Fidencio French MD [facility] Internal Med [address] [facility] [place] [address] 09/10/2022 14:28:38 09/10/2022 15:42:04 Diabetes mellitus 59994999 E11.9 Hyperlipidemia 59231732 E78.5 Essential hypertension 43417751 I10 Gastroesop hageal reflux disease 167402238 K21.9 Sleep apnea 19714838 G47 .30 Obesity 579235711 E66.9 Lymphedema of lower extremity 354380104 I89.0 Tear of me niscus of knee 649562669 S83.206A Anemia 266378381 D64.9 Adult [facility] th examination 211044961 Z00.00 [id number] Fidencio French MD [facility] Internal Med [facility] [address] [facility] [place] [address] 01/14/2023 11:55:20 01/14/2023 12:54:15 Diabetes mellitus 22758147 E11.9 Hyperlipidemia 34444193 E78.5 Essential hypertension 24823963 I10 Gastroesop hageal reflux disease 850504355 K21.9 Sleep apnea 53753263 G47 .30 Obesity 278409323 E66.9 Lymphedema of lower extremity 652995566 I89.0 Tear of me niscus of knee 848895982 S83.206A Anemia 741250590 D64.9 Adult heal th examination 088428966 Z00.00 Kidney disease 86648876 N08 [id number] Idalia Hartley MD [facility] General Surgery [address] [facility] [address] [place] [address] 04/09/2023 14:36:27 04/09/2023 16:02:39 Screening for malignant neoplasm of colon 593065298 Z12.11 Chronic constipation 236 974708 K59.09 [id number] Fidencio French MD [facility] Internal Med [address] [facility] [place] [address] 04/23/2023 11:48:59 04/23/2023 12:36:43 Dyspnea on exertion 87298086 R06.09 Kidney disease 14899052 N08 [id number] Fidencio French MD [facility] Internal Med [address] [facility] [place] [address] 05/16/2023 11:52:49 05/16/2023 12:32:55 Diabetes mellitus 48277608 E11.9 Hyperlipidemia 98126532 E78.5 Essential hypertension 80604795 I10 Gastroesop hageal reflux disease 566914939 K21.9 Sleep apnea 69729922 G47 .30 Obesity 686638485 E66.9 Lymphedema of lower extremity 455198204 I89.0 Tear of me niscus of knee 374499006 S83.206A Anemia 046742942 D64.9 Adult heal th examination 595963172 Z00.00 Kidney disease 41841470 N08 Dyspnea on exertion 6084 5006 R06.09 [id number] Zulay Washington NP [facility] Internal [address] [facility] [place] [address] 05/27/2023 11:52:05 05/27/2023 12:53:35 Osteoarthritis 673291446 M19.90 [id number] Zulay Washington NP [facility] [address] [place] [address] 06/20/2023 14:00:50 06/20/2023 14:16:52 [id number] Zulay Washington NP [facility] [address] [place] [address] 06/27/2023 11:43:01 06/27/2023 14:00:21 Osteoarthritis 080620464 M19.90 Type 2 [place] betes mellitus without complication 146059509 E11.9 Essential hypertension 81786088 I10 [id number] Fidencio French MD [facility] [address] [place] [address] 10/14/2023 15:17:14 10/14/2023 16:29:18 Diabetes mellitus 48228536 E11.9 Hyperlipidemia 33641287 E78.5 Essential hypertension 87401323 I10 Gastroesop hageal reflux disease 826602416 K21.9 Sleep apnea 90766321 G47 .30 Obesity 927519679 E66.9 Lymphedema of lower extremity 920742866 I89.0 Anemia 941783630 D64.9 Adult [facility] examination 697871625 Z00.00 Kidney disease 49276805 N08 Screening mammography 24 746588 Z12.31 Screening for malignant neoplasm of colon 356225203 Z12.11 Palpitations 41851532 R0 0.2 [id number] Zulay [place] NP [facility] Internal [place] [id number] [facility] [place] [address] 10/24/2023 14:21:58 10/24/2023 15:03:40 Herpes simplex [id number] B00.9 Health Concerns Section Related Observation LastModified by Organization Detai ls LastModified Time None Recorded Concern Status LastModified by Organization Details LastModified Time None Recorded Advance Directives Directive N: Payers Encounter Date Sequence Insurance Name Policy Number Policy Garcia Covered Member ID Garcia Member ID Guarantor Name 05/27/2023 1 [facility] (MEDICARE REPLACEMENT/AD VANTAGE - PPO) [id number] Lindsay Pedersen [id number] iLndsay Pedersen 05/27/2023 2 [place] MEDICARE REPLACEMENT PRIMARY) Lindsay Pedersen [id number] Lindsay Pedersen 06/20/2023 1 [employer] (MEDICARE REPLACEMENT/AD VANTAGE - PPO) [id number] Lindsay Pedersen [id number] Lindsay Pedersen 06/20/2023 2 [place]IC[place] REPLACEMENT PRIMARY) Lindsay Pedersen [id number] Lindsay Pedersen 06/27/2023 1 [facility] (MEDICARE REPLACEMENT/AD VANTAGE - PPO) [id number] Lindsay Sheela Pedersen [id number] Lindsay Pedersen 06/27/2023 2 [place] MEDICARE REPLACEMENT PRIMARY) Lindsay Pedersen [id number] Lindsay Pedersen 10/14/2023 1 [facility] (MEDICARE REPLACEMENT/AD VANTAGE - PPO) [id number] Lindsay Sheela Pedersen [id number] Lindsay Pedersen 10/14/2023 2 [place] OR MEDICARE REPLACEMENT PRIMARY) Lindsay Pedersen [id number] Lindsay Pedersen 10/24/2023 1 [facility] (MEDICARE REPLACEMENT/AD VANTAGE - PPO) [id number] Lindsay Sheela Pedersen [id number] Lindsay Pedersen 10/24/2023 2 [place]ARE OR MEDICARE REPLACEMENT PRIMARY) Lindsay Pedersen [id number] Lindsay Pedersen Notes Date Note Type Note Provider Name and Address Organization Details Recorded Time 05/27/2023 text/html Pt is here today to get evaluated for a shower chair and rollator. She is scheduled for right knee surgery on June 30. Zulay Washington NP [address] [facility], [address], [place], [address], [facility] [employer] 05/27/2023 14:07:27 06/20/2023 text/html Patient is a 68 y/o female here for surgery clearance. She is having a right knee replacement scheduled on 07/01/23 at [facility] Zulay Washington NP [address], [address], [place], [address], [employer] 06/20/2023 14:22:59 06/27/2023 text/html Pt is here today for a surgical clearance for Right Total Knee replacement with Dr. Kamar Gandara on 07/01/2023. Zulay [place] NP [address], [address], [place], [address], [employer] 06/27/2023 12:47:17 10/14/2023 text/html Here today for having palpitations has been having them every day for MONTHS, happens even at rest.a while has just been ignoring it. Also left ear hurts X 3days. She put some vicks on a cotton ball which has helped some #1 Cardiology group at [facility] - [phone] #2 GI- Dr. Salinas - [phone]- #3Hematologist- Dr. Estrella - [phone] Dx: Anemia- She is tired all the time and cold all the time Last CBC was in May which was NL Diabetes- Accu checks 119-129 . Last A1c 5.9 at nephrologyNo Neuropathy,Last eye exam - 06/13Meds- was on Ozempic 0.5mg once a week but got blurred vision and constipation, , now on Trulicity 1.5 mg weekly, Farxiga 10 mgHypertension- HCTZ was stopped in the past, under controlMeds- Amlodipine 10mg daily, Losartan 100mg dailyGERD- takes otc some timesObesity- lost 2 lbsSleep Apnea- Uses CPAP (Dream station 2) Has been using it for 3 yrs, CompliantChronic Constipation- Was on Linzess but was advised not to use it mcfp. Now uses OTC suppository. Has used Miralax in the past and has just started back taking it daily, colonoscopy is duelymphedema- Had the message therapy and has the sleeve to wear on right leg Kidney disease- Sees Dr. Chen GFR getting better 55Meds- Calcitriol 0.25mg daily, Vitamin D 50,000 once a week Hyperlipidemia- On meds , labs dueMeds- Atorvastatin 20mg at HSTricuspid regurgitation - Last Echo was 12/13. Very mild. no symptomsH/o iron def anemia- improved, last Hb was nl Right knee replacement, getting PT Fidencio French MD [address] [facility], [place], [address], [facility] [employer] 10/14/2023 16:21:52 10/24/2023 text/html blisters on her upper lip, started about a week agotingles with drainage and burningstarted as a small spot in the corner of her mouth now across upper lip Zulay [place] NP [address], [address], [place], [address], [employer] 10/24/2023 14:58:46 OBGyn Episode No OBEpisode recorded.
--- OUTSIDE RECORDS SUMMARY | 2024-03-23 01:49 | XMS_ITS | Encounter Summary ---
Author Organization [facility] Healthcare Address [address] [place] [address] Care Team Providers Care Upfitter Name Role Phone Fidencio French MD Primary Care Provider [phone] Dahlia Mendez Unavailable [phone] Reason for Referral * Diagnostic Imaging (Routine) - Closed Specialty Diagnoses / Procedures Referred By Contac t Referred To Contact Diagnoses S/P total knee arthroplasty, right Procedures XR Knee Right 3 Views Kamar Gandara DO [address] [place] [address] DR DAWKINS [address] [place] [address] Phone: tel: fax: [address] [address] Referral ID Status Reason Start Date Expiration Date Visits Re quested Visits Authorized [id number] Closed 11/11/2023 12/10/2024 1 1 Reason for Visit * Reason Comments Pain RTKA 4.9.24 Post-op RTKA 4.9.24 Encounter Details Date Type Department Care Team ([facility] Contact Info) Description 11/13/2023 10:45 AM CDT Office Visit [facility] Medical Group Orthopedics and Sports Medicine [address] [address] Kamar Gandara DO [address] [place] [address] DR DAWKINS [address] [place] [address] S/P total knee arthroplasty, right (Primary Dx) Social History Tobacco Use Types Packs/Day Years Used Date Smoking Tobacco: Never Passive Smoke Exposure: Past Smokeless Tobacco: Never Alcohol Use Standard Drinks/Week Comments No 0 (1 standard drink = 0.6 oz pur e alcohol) [facility] Utilities Answer Date Recorded In the past 12 months has e electric, gas, oil, or water company threatened to shut off services in your [...] often do you attend chur ch or temple services? More than 4 times per year 07/02/2023 Do you belong to any clubs o r organizations such as yazdanism groups, unions, fraternal or athletic groups, or [...] place to sleep or slept in a nursing home (including now)? No 07/02/2023 Personal Safety Answer Date Recorded Have you ever been in or are you currently in a harmful physical or emotional relationship or is someone making you feel afraid or unsafe? 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 FOLLOW UP PATIENT VISIT Subjective CHIEF COMPLAINT She had concerns including Pain and Post-op of the Right Knee (RTKA 4.9.24). HISTORY OF PRESENT ILLNESS Patient returns for re-evaluation of right total knee arthroplasty. They are approximately 4 monthsout of surgery. Deny any acute issues today. No fevers, chills, shortness of breath, or chest pain.Doing well with physical therapy Objective PHYSICAL EXAM There were no vitals taken for this visit. Exam of the right knee shows anterior incision well healed. There are no signs of infection. Mild postop swelling. Extension to 0, flexion to 115. Calf soft nontender REVIEW OF X-RAYS/STUDIES/LABS X-rays reviewed and interpreted today of the right knee show postsurgical changes. Total knee arthroplasty in place with no signs of failure or complication Diagnoses and all orders for this visit: S/P total knee arthroplasty, right (Primary) - XR Knee Right 3 Views; Future Plan: I discussed further treatment with the patient. Clinically they are doing well. Continue to work onrange of motion and strengthening. Follow up with me in 6 months time for re-evaluation. Concerningsigns or symptoms for which they should returned were reviewed. All questions addressed today Kamar Gandara DO documented in this encounter Plan of Treatment Not on file documented as of this encounter Results * XR Knee Right 3 Views (11/13/2023 10:04 AM CDT) Anatomical Region Laterality Modality Lower Extremities, Knee Right Computed Radiography 11/13/2023 9:54 PM CDT Narrative 11/13/2023 9:56 PM CDT EXAM DESCRIPTION: XR KNEE RIGHT 3 VIEWS REASON FOR STUDY: pain ?? TKR 07/01/23 mild discomfort since TKR ? FINDINGS: Three views submitted with comparison 08/13/2023. 2 component right knee arthroplasty is in near anatomic alignment. ??There are no fractures or evidence of loosening. ??A small to moderate knee effusion is present. IMPRESSION: 2 component right knee arthroplasty in near anatomic alignment. Small to moderate knee effusion. THIS IS AN ELECTRONICALLY VERIFIED FINAL REPORT 11/13/2023 9:56 PM - Electronically signed by ??Kwesi Kessler M.D. D: ??11/13/2023 9:56 PM T: Report ID: [id number] Reading Location: ??[id number] Procedure Note Kwesi Kessler MD - 11/13/2023 EXAM DESCRIPTION: XR KNEE RIGHT 3 VIEWS REASON FOR STUDY: pain TKR 07/01/23 mild discomfort since TKR FINDINGS: Three views submitted with comparison 08/13/2023. 2 component right knee arthroplasty is in near anatomic alignment. Thereare no fractures or evidence of loosening. A small to moderate knee effusionis present. IMPRESSION: 2 component right knee arthroplasty in near anatomic alignment. Small to moderate knee effusion. THIS IS AN ELECTRONICALLY VERIFIED FINAL REPORT 11/13/2023 9:56 PM - Electronically signed by Kwesi Kessler M.D. MF T: Report ID: [id number] Reading Location: [place] [address] Kamar Gandara DO IMG XR PROCEDURES Final Result documented in this encounter Visit Diagnoses Diagnosis S/P total knee arthroplasty, right- Primary S/P total knee arthroplasty, right documented in this encounter Historical Medications * This list may reflect changes made after this encounter. valACYclovir (VALTREX) 500 mg tablet Take 1 tablet (500 mg total) by mouth 10/24/2023 amoxicillin 500 mg capsule TAKE FOUR CAPSULES BY MOUTH ONE HOUR BEFORE APPOINTMENT 10/23/2023 added in this encounter Care Teams Upfitter Relationship Specialty Start Date End Date Fidencio Frecnh MD [address] [place] [address] PCP - General Internal Medicine 06/12/22 Dahlia Mendez PA [address] [facility] [address] [address] Orthopedic Surgery 07/01/23 documented as of this encounter
--- OUTSIDE RECORDS SUMMARY | 2024-03-23 01:49 | XMS_ITS | Encounter Summary ---
Author Organization [facility] Healthcare Address [address] [place] [address] Care Team Providers Care Mechanical Engineering Lecturer Name Role Phone Fidencio French MD Primary Care Provider [phone] Dahlia Mendez Unavailable [phone] Reason for Visit * Reason Onset Date Comments home health 07/08/2023 Encounter Details Date Type Department Care Team (Late st Contact Info) Description 07/08/2023 Telephone [facility] Medical Group Orthopedics and Sports Medicine [address] [place] [phone] Kamar Gandara DO [address] [place] [phone] home health Social History Tobacco Use Types Packs/Day Years Used Date Smoking Tobacco: Never Passive Smoke Exposure: Past Smokeless Tobacco: Never Alcohol Use Standard Drinks/Week Comments No 0 (1 standard drink = 0.6 oz pur e alcohol) [facility] Utilities Answer Date Recorded In the past 12 months has [employer] electric, gas, oil, or water company threatened [...] often do you attend chur ch or baptist services? More than 4 times per year 07/02/2023 Do you belong to any clubs o r organizations such as yazidism groups, unions, fraternal or athletic groups, or [...] place to sleep or slept in a detention (including now)? No 07/02/2023 Personal Safety Answer Date Recorded Have you ever been in or are you currently in a harmful physical or emotional relationship or is someone making you feel afraid or unsafe? 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 And if so can they get signed orders. Fax [phone] documented in this encounter Plan of Treatment Not on file documented as of this encounter Visit Diagnoses Not on filedocumented in this encounter Care Teams Mechanical Engineering Lecturer Relationship Specialty Start Date End Date Fidencio French MD [address] [place] [address] PCP - General Internal Medicine 06/12/22 Dahlia Mendez PA [address] [facility] [address] DA[address] [place] [address] Orthopedic Surgery 07/01/23 documented as of this encounter
--- OUTSIDE RECORDS SUMMARY | 2024-03-23 01:49 | XMS_ITS | Encounter Summary ---
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 Name Role Phone Fidencio French MD Primary Care Provider [phone] Dahlia Mendez Unavailable [phone] Reason for Visit * Auth/Cert (Routine) Specialty Diagnoses / Procedures Referred By Kirt t Referred To Contact Diagnoses Primary osteoarthritis of right knee Primary osteoarthritis of right knee [M17.11] Procedures LA ARTHRP KNE CONDYLE&PLATU MEDIAL&LAT COMPARTMENTS RIGHT TOTAL KNEE ARTHROPLASTY Referral ID Status Reason Start Date Expiration Date Visits Re quested Visits Authorized [id number] 1 1 Encounter Details Date Type Department Care Team (Latest Contact Info) Description 07/01/2023 10:21 AM CDT - 07/03/2023 2:30 PM CDT Hospital Encounter [address] [address] Kamar Gandara DO [address] [place] [id number] S/P total knee arthroplasty, right (Primary Dx); Primary osteoarthritis of right knee Discharge Disposition: Discharge to SNF Social History Tobacco Use Types Packs/Day Years Used Date Smoking Tobacco: Never Passive Smoke Exposure: Past Smokeless Tobacco: Never Alcohol Use Standard Drinks/Week Comments No 0 (1 standard drink = 0.6 oz pur e alcohol) [facility] Utilities Answer Date Recorded In the past 12 months has th e electric, gas, oil, or water company [...] often do you attend chur ch or taoism services? More than 4 times per year 07/02/2023 Do you belong to any clubs o r organizations such as sikhism groups, unions, fraternal or athletic groups, or [...] place to sleep or slept in a long term (including now)? No 07/02/2023 Personal Safety Answer Date Recorded Have you ever been in or are you currently in a harmful physical or emotional relationship or is someone making you feel afraid or unsafe? Denies 07/01/2023 Comments No Sex and Gender Information Value Date Recorded Sex Assigned at Not on file Legal Sex Female 5:35 PM [employer] Gender Identity Not on file Sexual Orientation Not on file documented as of this encounter Last Filed Vital Signs Vital Sign Reading Time Taken Comments Blood Pressure 131/66 07/03/2023 7:32 AM CDT Pulse 103 07/03/2023 7:32 AM CDT Temperature 36.6 ??C (97.9 ??F) 07/03/2023 7:32 AM CD T Respiratory Rate 19 07/03/2023 7:32 AM CDT Oxygen Saturation 100% 07/03/2023 7:32 AM CDT Inhaled Oxygen Concentration - - Weight 97.1 kg (214 lb) 07/03/2023 7:26 AM CDT Height 157.5 cm (5' 2 ) 07/03/2023 7:26 AM CDT Body Mass Index 39.14 07/03/2023 7:26 AM CDT documented in this encounter Discharge Summaries * Dahlia Mendez PA - 07/03/2023 10:12 AM CDT Images from the original note were not included. Inpatient Discharge Summary BRIEF OVERVIEW Admitting Provider: Kamar Gandara DO Discharge Provider: No att. providers found Primary Care Physician at Discharge: Fidencio French MD [phone] Admission Date: 07/01/2023 Discharge Date: 07/03/2023 Admission Location: [facility] Problems/Diagnoses: Principal Problem: Primary osteoarthritis of right knee Active Problems: Arthritis of right knee S/P total knee arthroplasty, right Resolved Problems: No resolved hospital problems. DETAILS OF HOSPITAL STAY Presenting Problem/History of Present Illness: Primary osteoarthritis of the right knee, s/p right total knee arthroplasty Hospital Course: Patient was admitted to the hospital on 07/01/2023 following right total knee arthroplasty performed by Dr. Gandara on 07/01/2023. Hospitalist was consulted for medical management for diabetes, chronic kidney disease, and hypertension. Losartan was held throughout her stay, to be resumed on discharge. She had an uncomplicated hospital course. She participated with physical therapy well while admitted. She was discharged on 07/03/2023 to [facility] in good condition. She will follow up as scheduled. Active Issues Requiring Follow-up: S/p right total knee arthroplasty - Eliquis 2.5 mg b.i.d. for 2 weeks following surgery - continue to keep surgical site clean and dry and monitor for signs of infection - follow up in 2 weeks for wound check and x-rays See primary care provider and follow up for other medical conditions - HTN - T2 dm - CKD Test Results Pending at Discharge: Operative Procedures Performed: Procedure(s): RIGHT TOTAL KNEE ARTHROPLASTY Other Procedures: None Pertinent Test Results: Chem/LFT Lab History Latest Ref Rng & Units 06/11/2023 09:28 07/01/2023 17:18 07/02/2023 05:47 07/03/2023 06:01 Labs-Chem/LFT Sodium 135 - 145 mmol/L 137 135 135 Creatinine 0.60 - 1.10 mg/dL 1.10 1.00 1.33 0.95 Bilirubin, total 0.1 - 1.2 mg/dL 0.4 0.2 AST 10 - 45 Units/L 14 23 ALT 7 - 45 Units/L 7 14 Alk phos 40 - 130 Units/L 79 93 CrCl- Actual Body Weight (Cockcroft-Gault) 70.6 83.7 62.9 88.1 Hematology Lab History Latest Ref Rng & Units 06/11/2023 09:28 07/01/2023 17:18 07/02/2023 05:47 07/03/2023 06:01 Labs - Hematology WBC 3.8 - 9.9 K/cumm 9.6 17.5 Total Hb, POC 11.9 - 15.5 g/dL 12.8 12.9 11.5 10.5 Hct 35.6 - 45.5 % 40.2 40.8 36.1 32.8 Plt 150 - 400 K/cumm 292 294 Neutrophil abs 1.5 - 6.5 K/cumm 5.5 Lymphocytes, abs 0.8 - 3.3 K/cumm 3.4 Discharge Details Physical Exam at Discharge: Discharge Condition: good Pulse: 103 Resp: 19 BP: 131/66 Temp: 36.6 ??C (97.9 ??F) Weight: 97.1 kg (214 lb) Pertinent Exam Findings at Discharge: Patient is neurovascularly intact to the right lower extremity, no signs of infection of the surgical site Discharge Disposition: Discharge to SNF Code Status at Discharge: Full Discharge Instructions: Activity Instructions Post-Discharge Activity Instructions - Knee Weight bear as tolerated on your leg. Knee range of motion exercises and strengthening as directed by your physician. Diet Instructions Adult Discharge Diet Diet Type: Return to previous diet Other Instructions Ambulatory referral to Home Health Service Line: Home Health Primary disciplines requested: Retirement Physical Therapy Home Health Services: Therapy to Eval/ Treat Strengthening Exercises Wound/ Ostomy Care Requested Start of Care Date: Tomorrow Physician to follow patient's care (the person listed here will be responsible for signing ongoing orders): Referring Provider I attest that I or another qualified licensed provider saw the patient 90 days prior to or 30 days post admission and this face to face encounter meets the necessary Home Health requirements. The face to face encounter occurred on (date): 07/01/2023 The encounter with the patient was in whole, or in part, for the following medical condition, whichis the primary reason for home health care. (List medical condition): s/p right total knee arthroplasty I certify that, based on my findings, the following services are medically necessary skilled home health services: Wound/ Ostomy Care Strengthening Exercises Therapy to Eval/ Treat Strengenthing/ Balance Clinical findings that support the need for home care: Medical condition requiring skilled assessment/education Wound requiring care, assessment, and instruction I certify that my clinical findings support patient's homebound status. Homebound criteria met because: Requires assistance of another to leave home safely Pain with minimal activity or rest Pain and impaired mobility post-op Call provider for: Temperature Temperature greater than 101.4 Call provider for: redness, tenderness, or signs of infection (pain, swelling, redness, odor or green/yellow discharge around incision site) Call provider for: severe uncontrolled pain Discharge instructions - Continuous passive motion Use for 1 hour twice daily for the surgical and advance flexion as tolerated Post-Discharge Dressing Care - (Specify in comments) Okay to leave silver Mepilex dressing on until 2 week postop appointment, unless there is drainage.If there is drainage, remove dressing on postoperative day #[address] dry dressing daily or as needed Incision must stay dry and covered for showers until 2 week follow up appointment. Do not applylotions or ointments to skin incision. Walker The [id number] evaluation was performed on: 07/01/2023 Discharge Medications: Current Medications TAKE these medications Accu-Chek Guide Me Glucose Mtr misc 1 Insert daily Generic drug: blood-glucose meter Accu-Chek Guide test strips strip USE ONE STRIP TO CHECK GLUCOSE DAILY Generic drug: blood glucose diagnostic Accu-Chek Softclix Lancets lancets USE TO CHECK GLUCOSE ONCE DAILY Generic drug: lancets amLODIPine 10 mg tablet Take 1 tablet (10 mg total) by mouth daily Commonly known as: NORVASC apixaban 2.5 mg tablet Take 1 tablet (2.5 mg total) by mouth 2 (two) times a day For: VTE Prophylaxis Following Ortho Surgery Commonly known as: ELIQUIS atorvastatin 20 mg tablet Take 1 tablet (20 mg total) by mouth daily Commonly known as: LIPITOR calcitRIOL 0.25 mcg capsule Take 1 capsule (0.25 mcg total) by mouth daily Commonly known as: ROCALTROL ergocalciferol 50,000 unit capsule Take 1 capsule (50,000 Units total) by mouth once a week Commonly known as: VITAMIN D Farxiga 10 mg tablet Take 1 tablet every day by oral route. Generic drug: dapagliflozin propanediol losartan 100 mg tablet Take 1 tablet (100 mg total) by mouth daily Commonly known as: COZAAR oxyCODONE 10 mg tablet Take 1 tablet (10 mg total) by mouth every 4 (four) hours as needed for pain For: pain Commonly known as: ROXICODONE Ozempic 0.25 mg or 0.5 mg (2 mg/3 mL) pen injector injection Inject 0.5 mg under the skin once a week Injects on Sundays. Generic drug: semaglutide polyethylene glycol 236-22.74-6.74 -5.86 gram solution Take 240 mL by mouth once Commonly known as: GoLYTELY Outpatient Follow-Up: Future Appointments Date Time Provider Department Center 07/16/2023 10:00 AM Dahlia Mendez PA [facility] Specialty 08/12/2023 1:00 PM Jody Durán NP [facility] 08/13/2023 10:15 AM Kamar Gandara DO [facility] Specialty Contact Information for Follow-ups Fidencio French MD Specialty: Internal Medicine Relationship: PCP - General [address] [place] [address] Next Steps: Follow up in 1 week(s) Cosigned by Kamar Gandara DO at 07/03/2023 4:45 PM CDT documented in this encounter Discharge Instructions * Attachments The following attachments cannot be sent through Care Everywhere. * Knee Replacement (Discharge Care) (Gibraltarian) documented in this encounter Medications at Time of Discharge Accu-Chek Guide Me Glucose Mtr misc 1 Insert daily 03/24/2023 Accu-Chek Guide test strips strip USE ONE STRIP TO CHECK GLUCOSE DAILY 04/29/2022 Accu-Chek Softclix Lancets lancets USE TO CHECK GLUCOSE ONCE DAILY 04/29/2022 amLODIPine (NORVASC) 10 mg tablet Take 1 tablet (10 mg total) by mouth daily apixaban (ELIQUIS) 2.5 mg tabletIndications :VTE Prophylaxis Following Ortho Surgery Take 1 tablet (2.5 mg total) by mouth 2 (two) times a day 28 tablet 07/01/2023 atorvastatin (LIPITOR) 20 mg tablet Take 1 tablet (20 mg total) by mouth daily 10/20/2021 calcitRIOL (ROCALTROL) 0.25 mcg capsule Take 1 capsule (0.25 mcg total) by mouth daily dapagliflozin propanediol (Farxiga) 10 mg tablet Take 1 tablet every day by oral route. ergocalciferol (VITAMIN D) 50,000 unit capsule Take 1 capsule (50,000 Units total) by mouth once a week lidocaine (LIDODERM) 5 % USE 1 PATCH EXTERNALLY ONCE DAILY REMOVE AND DISCARD PATCH WITHIN 12 HOURS OR DIRECTED BY DOCTOR 06/30/2023 losartan (COZAAR) 100 mg tablet Take 1 tablet (100 mg total) by mouth daily 3 02/23/2018 polyethylene glycol 236-22.74-6.74 -5.86 gram solution Take 240 mL by mouth once 04/10/2023 oxyCODONE (ROXICODONE) 10 mg tabletIndications :Pain Take 1 tablet (10 mg total) by mouth every 4 (four) hours as needed for pain 25 tablet 07/03/2023 Ozempic 0.25 mg or 0.5 mg (2 mg/3 mL) pen injector injection Inject 0.5 mg under the skin once a week Injects on Sundays. 05/03/2023 4 documented as of this encounter Ordered Prescriptions Prescription Sig Dispense Quantity Refills Last Filled Start Date End Date apixaban (ELIQUIS) 2.5 mg tabletIndications: VTE Prophylaxis Following Ortho Surgery Take 1 tablet (2.5 mg total) by mouth 2 (two) times a day 28 tablet 07/01/2023 oxyCODONE (ROXICODONE) 10 mg tabletIndications: Pain Take 1 tablet (10 mg total) by mouth every 4 (four) hours as needed for pain 25 tablet 07/03/2023 07/04/2023 oxyCODONE (ROXICODONE) 5 mg immediate release tabletIndications: Pain Take 1 tablet (5 mg total) by mouth every 4 (four) hours as needed for pain 30 tablet 07/01/2023 07/03/2023 documented in this encounter Discharge Disposition Disposition Code Departure Means Destination Comment s Discharge to [place], [place]) documented in this encounter Progress Notes * Eufemia Lim, JOELLE - 07/03/2023 1:43 PM CDT DISCHARGE TO [facility] Social Work has coordinated discharge plan. Patient has been accepted to [facility] - [facility]. RN informed to call report and fax orders to numbers listed below. Patient, family etc. are aware and are agreeable to plan. [facility] Auth ID [id number] Approved 07/03/23 - 07/07/23 [id number] [facility] , [place] [address] Eufemia Lim LCSW 07/03/2023 1:43 PM * Gonzalo Wilson - 07/03/2023 12:32 PM CDT 07/03/23 1200 Time Spent Start Time 1230 Patient Spiritual Assessment Active in [employer] Yes [facility] of [facility] Dawna Harmon Clinical Encounter Type Visited With Patient Response Type Continuing visit;Surgical visit Routine Visit Follow-up Surgical Visit Post-op (Patient felt surgery went well and receptive to prayer of thanksgiving.) Reason for visit Support Interventions Interventions Offer emotional support;Active listening;Prayer Patient appreciated prayer and devotional. * Eufemia Lim LCSW - 07/03/2023 11:23 AM CDT [facility] is accepting. [facility] updated patient and patient's daughter, Maria Elena, at bedside. Both are agreeable and happy to hearthat a bed is available for the patient. [facility] submitted clinicals to [facility] for prior authorization. Auth is pending. Ref# [id number] Efuemia Lim LCSW 07/03/2023 11:25 AM * Nancy Martinez PTA - 07/03/2023 11:03 AM CDT Physical Therapy 07/03/23 1103 PT Last Visit Session Type Treatment Safe Environment Arm band checked;Patient found sitting in chair;Gait belt utilized for all out of bed mobility Subjective Agreeable to Therapy Subjective Comment Patient states that she is going to rehab instead of her daughter's house now. Reports that she is going to [facility] this afternoon. Patient states that she is normally very independentand wasn't prepared for this. Family/Caregiver Present No Precautions Precautions Bed/Chair Alarm;Fall risk Activity Tolerance Activity Tolerance Comments fair+ Pain Assessment Pain Assessment 0-10 Pain Score 6 Pain Location Knee Pain Orientation Right Cognition Arousal/Alertness Alert Attention Span Appears intact Memory Appears intact Current communication Appears Intact Following Commands Follows all commands and directions without difficulty Safety Judgment Good awareness of safety precautions Insight Fully aware of deficits Compliance/Behavior Easy to engage Supine Supine-Exercises Right;Lower extremity Supine-Exercise Type Ankle pumps;Quad sets;Glut sets;SLR;ABD/ADD;Heel slides Reps/Sets 12/22 Supine-Motion AROM;AAROM Supine-Exercise Comments Patient continues to require min assist for SLR's. Self assisted ROM for heelslides. Seated Seated-Exercises Lower extremity (right) Seated-Exercise Type Knee flex Reps/Sets 12/22 Seated-Motion AROM Bed Mobility 1 Bed Mobility From 1 Edge of bed Bed Mobility Type 1 To Bed Mobility to 1 Supine Level of Assistance 1 Minimum Assist;Minimal verbal cues Bed Mobility Comments 1 assist mostly for right LE, increased time Transfer 1 Transfer From 1 Sit Transfer Type 1 To and from Transfer to 1 Stand Transfer Device 1 Wheeled walker Transfer Level of Assistance 1 Contact Guard Assist;Minimal verbal cues Ambulation 1 Distance (ft) 1 60ft; 12ft; 12ft Device 1 Wheeled walker Assistance 1 Contact Guard Assist;Minimal verbal cues Gait: Requires verbal cues to 1 Use assistive device safely;Utilize appropriate gait sequencing Gait Deviations 1 Antalgic;Base of support - decreased;Yasmin - decreased;Heel strike - decreased;Hip/knee flexion during swing phase - decreased;Step length - decreased;Stance time - decreased;Turns - difficulty;Weight bearing through UE???s - increased;Weight shift - decreased Quality of Gait 1 fair- to fair Ambulation Comments 1 Patient continues to require vc's to improve gait technique, uses a step to gait pattern initially with decreased left knee and hip flexion in swing phase of gait left LE, reducing stance time right LE. Patient was encouraged to improve weight bearing through right LE and to improve left LE hip and knee flexion for swing phase of gait. Patient ambulates slowly and pushes heavily through UE's. Patient ambulated in hallway, then ambulated to and from the bathroom after ther ex. Other Comments Other PT Comments vc's for approach to commode, patient is independent with hygiene. Safe Environment End of Therapy Session Safe Environment End of Therapy Session Patient left in chair;Chair alarm in place and activated;RNnotified;Call light within reach;Overbed table within reach;Bed in lowest position with wheels locked Assessment Barriers to Discharge Current Mobility Status;Decreased caregiver support;Home environment challenged Plan Plan Continue with current plan Recommendation/Plan PT Recommendation/Plan Retirement Facility Patient at high risk for Falls;Readmission;Injury due to reduced functional status;Injury at home as patient has not returned to prior level of function Recommend SNF due to Risk of injury at home;Unable to safely care for self in the home;Skilled therapy needed to address care for self in the home;Skilled therapy needed to address functional deficits;Skilled therapy needed for patient to return to prior level of independence Educated the patient to the role of physical therapy, plan of care, goals of therapy, rationale forprogressing mobility and home exercise program. Patient was left with all needs met and equipment intact. Mobility and ADL status posted at bedsideand within medical record. Multi-Disciplinary Problems (from Physical Therapy) Active Problems Problem: PT [facility] Start Date: 07/02/23 Goal Start Date Expected End Date End Date PT LTG - [facility] 1 07/02/23 07/16/23 -- Goal Details: Pt will perform LE TKA seated/supine therex x 10 reps each, independently -progressing Goal Start Date Expected End Date End Date PT [facility] 2 07/02/23 07/16/23 -- Goal Details: Pt will perform all bed mobility with no assist. -progressing Goal Start Date Expected End Date End Date PT [facility] 3 07/02/23 07/16/23 -- Goal Details: Pt will perform sit to stand and bed to/from chair transfers with wheeled walker and no assist. -progressing Goal Start Date Expected End Date End Date PT [facility] - [facility] 4 07/02/23 07/16/23 -- Goal Details: Pt will ambulate 150+ feet with wheeled walker and standby assist.-progressing Goal Start Date Expected End Date End Date PT [facility] - [facility] 5 07/02/23 07/16/23 -- Goal Details: Pt will ascend/descend 2-4 stairs with handrail and standby assist. -not assessed * Nichelle Perez, DOYLE - 07/03/2023 9:38 AM CDT Occupational Therapy 07/03/23 0938 General Session Type Treatment OT Received On 07/03/23 Safe Environment Arm band checked;Gait belt utilized for all out of bed mobility;Session completed bedside (Upon entering room, PCT was getting pt off the BSC) Subjective Agreeable to Therapy Subjective Comment Pt states she normally wear compression socks. Pt was edu not to wear them untilthe clears it. Additional Pertinent History CKD, DM, GERD, iron deficiency anemia, HTN, OA Family/Caregiver Present Yes (daughter) Current Functional Status OT Functional Mobility Sit to stand from BSC with CGA from PCT and sat in chair ~ 3 ft with v/c forhand/feet placement. Sit <> stand from chair with v/c for hand /feet placement. Functional mobility ~ 10 ft x 2 trails chair <> sink with min A x 1and v/c for sequencing with good demo. Pt left sitting in chair with alarm and daughter in room OT Self Care Pt performed LB dressing with SBA and use of AE (sock aid and nursing department chairperson) to doff/don B socks and don panties and min v/c to remember tech. (Pt was edu sock aid might be used of compressionsocks but not to wear them until the dr clear it.) Pt was edu with EC/WS tech with good verbal understanding. Pt stood at sink and performed grooming task with SBA. Pt does not apply full wt through sx leg 2/2 pain. OT Cognition A Ox 4, demo good understanding of AE after edu. OT Communication Pt was edu with car/shower/tub transfer with visual and verbal cues with fair+ verbal understanding. Pt was edu with w/w safety when performing high /low reaching simulating item retrieval. Pt edu to placed hand on center of w/w (center of gravity) when reaching low to decrease fall risk demo good understanding with CGA for standing balance. Pt was edu with use of echoecho ice machine , that they can use frozen water bottles vs ice. Precautions Precautions Bed/Chair Alarm RLE Weight Bearing WBAT Pain Assessment Pain Score 6 (R knee) Safe Environment End of Therapy Session Safe Environment End of Therapy Session Patient left in chair;Chair alarm in place and activated;RNnotified;Call light within reach;Overbed table within reach Recommendation/Plan OT Recommendation Retirement Facility Patient at high risk for Falls;Injury at home as patient has not returned to prior level of function Recommend SNF due to Risk of injury at home;Unable to safely care for self in the home;Skilled therapy needed to address care for self in the home;Skilled therapy needed to address functional deficits;Skilled therapy needed for patient to return to prior level of independence * Dahlia Mendez PA - 07/03/2023 7:47 AM CDT Daily Progress Subjective Interval History: Pod 2, S/P right total knee arthroplasty performed by Dr. Gandara on 07/01/2023. Patient is doing okay this morning but is having a lot of pain in the knee and states her pain is not under control. Her oxycodone was increased to 10 mg last night. She worked with PT and OT yesterday who recommended discharge to a rehab facility, and she is agreeable to this. Patient denies chest pain, shortness of breath, fever, chills. Objective Vitals: 24hr Min/Max: Temp Min: 36.6 ??C (97.9 ??F) Max: 37.4 ??C (99.3 ??F) Pulse Min: 90 Max: 110 BP Min: 131/66 Max: 162/79 Resp Min: 16 Max: 19 SpO2 Min: 94 % Max: 100 % Most Recent : Vitals: 07/03/23 0732 BP: 131/66 Pulse: 103 Resp: 19 Temp: 36.6 ??C (97.9 ??F) SpO2: 100% I/O last 2 completed shifts: In: 601 [P.O.:240; I.V.:361] Out: - No intake/output data recorded. Physical Exam Vitals and nursing note reviewed. Pulmonary: Effort: Pulmonary effort is normal. Neurological: Mental Status: She is alert and oriented to person, place, and time. Psychiatric: Mood and Affect: Mood normal. Behavior: Behavior normal. Patient is lying in bed. Dressings dry and intact. Patient is neurovascularly intact to the right lower extremity with palpable dorsalis pedis and posterior tibialis pulses and sensation grossly intact to light touch. She demonstrates good dorsiflexion and plantar flexion of the right ankle. Calf compartments soft and compressible. Assessment/Plan Principal Problem: Primary osteoarthritis of right knee Active Problems: Arthritis of right knee S/P total knee arthroplasty, right Plan: POD 2 T2DM, CKD, HTN - hospitalist team is on board, appreciate recommendations and assistance in managing this patient Weight-bearing status 100% bilaterally as tolerated DVT prophylaxis Eliquis 2.5 mg b.i.d. PT for mobility Analgesia p.r.n. as ordered Discharge planning patient will need to discharge to a skilled rehab or nursing facility, pending facility placement VINCENZO Lopez Cosigned by Kamar Gandara DO at 07/03/2023 4:45 PM CDT * Nancy Martinez, ELEMENTARY READING TUTOR - 07/02/2023 3:22 PM CDT Physical Therapy 07/02/23 1522 PT Last Visit Session Type Treatment Safe Environment Arm band checked;Patient found in supine;Gait belt utilized for all out of bed mobility Subjective Agreeable to Therapy Subjective Comment Patient states that she just got back to bed, agreeable to work with PT and thengo back to bed. Family/Caregiver Present No Precautions Precautions Bed/Chair Alarm;Fall risk Activity Tolerance Activity Tolerance Comments fair Pain Assessment Pain Assessment 0-10 Pain Score 7 Pain Location Knee Pain Orientation Right Cognition Arousal/Alertness Alert Attention Span Appears intact Memory Appears intact Current communication Appears Intact Following Commands Follows all commands and directions without difficulty Compliance/Behavior Easy to engage Supine Supine-Exercises Right;Lower extremity Supine-Exercise Type Ankle pumps;Quad sets;Glut sets;SLR;ABD/ADD;Heel slides Reps/Sets / Supine-Motion AROM;AAROM Supine-Exercise Comments Patient required assistance with heelslides and SLR's Seated Seated-Exercises Lower extremity (right) Seated-Exercise Type Knee flex Reps/Sets 12/22 Seated-Motion AROM Bed Mobility 1 Bed Mobility From 1 Supine Bed Mobility Type 1 To and from Bed Mobility to 1 Edge of bed Level of Assistance 1 Minimum Assist;Minimal verbal cues Bed Mobility Comments 1 assist for surgical LE, increased time required Transfer 1 Transfer From 1 Sit Transfer Type 1 To and from Transfer to 1 Stand Transfer Device 1 Wheeled walker Transfer Level of Assistance 1 Contact Guard Assist;Minimal verbal cues Trials/Comments 1 vc's for hand placement Ambulation 1 Distance (ft) 1 55 Device 1 Wheeled walker Assistance 1 Contact Guard Assist;Minimal verbal cues Gait: Requires verbal cues to 1 Use assistive device safely;Utilize appropriate gait sequencing Gait Deviations 1 Antalgic;Yasmin - decreased;Heel strike - decreased;Hip/knee flexion during swing phase - decreased;Step length - decreased;Turns - difficulty;Weight bearing through UE???s - increased Quality of Gait 1 fair- Ambulation Comments 1 Patient's gait continues to be antalgic in nature. Patient ambulates slowly with mostly a step to gait pattern, vc's to initiate step through gait pattern. Patient has difficulty with planning turns, vc's for technique Stairs Stair Comments Patient will need stair training prior to discharge Safe Environment End of Therapy Session Safe Environment End of Therapy Session Patient left supine in bed;RN notified;Sequential compressive devices on legs and activated;Call light within reach;Overbed table within reach;Bed in lowest position with wheels locked Plan Plan Continue with current plan Recommendation/Plan PT Recommendation/Plan Retirement Facility Patient at high risk for Falls;Injury at home as patient has not returned to prior level of function Recommend SNF due to Risk of injury at home;Skilled therapy needed to address functional deficits;Skilled therapy needed for patient to return to prior level of independence Educated the patient to the role of physical therapy, plan of care, goals of therapy, rationale forprogressing mobility and home exercise program. Patient was left with all needs met and equipment intact. Mobility and ADL status posted at bedsideand within medical record. Multi-Disciplinary Problems (from Physical Therapy) Active Problems Problem: PT Misc Start Date: 07/02/23 Goal Start Date Expected End Date End Date PT LTG - [facility] [place] 1 07/02/23 07/16/23 -- Goal Details: Pt will perform LE TKA seated/supine therex x 10 reps each, independently -progressing Goal Start Date Expected End Date End Date PT [facility] - [facility] [place] 2 07/02/23 07/16/23 -- Goal Details: Pt will perform all bed mobility with no assist. -progressing Goal Start Date Expected End Date End Date PT [facility] - [facility] [place] 3 07/02/23 07/16/23 -- Goal Details: Pt will perform sit to stand and bed to/from chair transfers with wheeled walker and no assist. -progressing Goal Start Date Expected End Date End Date PT [facility] - [facility] [place] 4 07/02/23 07/16/23 -- Goal Details: Pt will ambulate 150+ feet with wheeled walker and standby assist. -progressing Goal Start Date Expected End Date End Date PT [facility] - [facility] [place] 5 07/02/23 07/16/23 -- Goal Details: Pt will ascend/descend 2-4 stairs with handrail and standby assist. -not assessed * Bernardino Bahena MD - 07/02/2023 3:18 PM CDT Images from the original note were not included. General Medicine Daily Progress SUBJECTIVE Chief complaint/Pt seen in f/u of Diabetes mellitus, hypertension essential, status post right TKA Chronic kidney disease stage IIIA 07/02/2023 Patient is feeling okay but having pain which is 7/10 in her right knee operative site Denies shortness of breath. Denies nausea. OBJECTIVE Vitals: 24hr Min/Max: Temp Min: 36.3 ??C (97.3 ??F) Max: 37.8 ??C (100 ??F) Pulse Min: 65 Max: 90 BP Min: 116/69 Max: 150/76 Resp Min: 16 Max: 18 SpO2 Min: 92 % Max: 100 % Most Recent : Vitals: 07/02/23 1203 BP: 150/76 Pulse: 90 Resp: 16 Temp: 36.7 ??C (98.1 ??F) SpO2: 100% I/O last 2 completed shifts: In: 2360 [P.O.:600; I.V.:1760] Out: 1375 [Urine:1275; Blood:100] I/O this shift: In: 601 [P.O.:240; I.V.:361] Out: - General appearance Alert & oriented to person, place & time, cooperative, no distress Head Eyes Ears Nose Throat Neck Supple, no JVD Lungs Clear to auscultation bilaterally, chest symmetry with respirations, normal vesicular breath sounds, no wheezes or crackles Chest wall no tenderness on percussion Heart Regular rate and rhythm, S1, S2 normal, no murmurs, clicks, rubs or gallop Abdomen Soft, non-tender. Bowel sounds normal. No masses, No organomegaly Extremities Pulses Skin Lymph nodes Neurologic Grossly non-focal Lab/Current Medication Review: Recent Results (from the past 24 hour(s)) POCT glucose Collection Time: 07/01/23 3:49 PM Result Value Ref Range Glucose, POC 118 70 - 199 mg/dL Protime-INR Collection Time: 07/01/23 5:18 PM Result Value Ref Range PT 13.2 12.0 - 14.6 sec INR 1.0 0.9 - 1.2 CBC without differential Collection Time: 07/01/23 5:18 PM Result Value Ref Range WBC 17.5 (H) 3.8 - 9.9 K/cumm Hgb 12.9 11.9 - 15.5 g/dL Hct 40.8 35.6 - 45.5 % Plt 294 150 - 400 K/cumm MPV 10.8 9.1 - 12.3 fL RBC 4.85 3.90 - 5.20 M/cumm MCV 84.1 81.3 - 96.4 fL MCH 26.6 (L) 27.1 - 33.3 pg MCHC 31.6 (L) 32.3 - 35.7 g/dL RDW CV 16.3 (H) 11.1 - 14.9 % RDW SD 49.8 (H) 35.7 - 48.1 fL NRBC abs 0.00 0.00 - 0.01 K/cumm Hepatic function panel Collection Time: 07/01/23 5:18 PM Result Value Ref Range Bilirubin, total 0.2 0.1 - 1.2 mg/dL Bilirubin, direct See Comment 0.1 - 0.3 Protein, pl 8.6 (H) 6.5 - 8.5 g/dL Albumin 4.1 3.5 - 5.0 g/dL Alk phos 93 40 - 130 Units/L ALT 14 7 - 45 Units/L AST 23 10 - 45 Units/L Creatinine Collection Time: 07/01/23 5:18 PM Result Value Ref Range Creatinine 1.00 0.60 - 1.10 mg/dL eGFR Collection Time: 07/01/23 5:18 PM Result Value Ref Range eGFR 62 >=60 mL/min/1.73 m2 POCT glucose Collection Time: 07/01/23 8:34 PM Result Value Ref Range Glucose, POC 202 (H) 70 - 199 mg/dL Glucose comment 1 Use This Result Glucose comment 2 RN/MD Notified Basic metabolic panel Collection Time: 07/02/23 5:47 AM Result Value Ref Range Sodium 135 135 - 145 mmol/L Potassium, pl 4.5 3.3 - 4.9 mmol/L Chloride 101 97 - 110 mmol/L CO2 24 22 - 32 mmol/L Anion gap 10 2 - 15 mmol/L BUN 18 6 - 25 mg/dL Creatinine 1.33 (H) 0.60 - 1.10 mg/dL Glucose 121 70 - 199 mg/dL Calcium 9.0 8.5 - 10.3 mg/dL Hemoglobin and hematocrit Collection Time: 07/02/23 5:47 AM Result Value Ref Range Hgb 11.5 (L) 11.9 - 15.5 g/dL Hct 36.1 35.6 - 45.5 % eGFR Collection Time: 07/02/23 5:47 AM Result Value Ref Range eGFR 44 (L) >=60 mL/min/1.73 m2 POCT glucose Collection Time: 07/02/23 7:16 AM Result Value Ref Range Glucose, POC 118 70 - 199 mg/dL POCT glucose Collection Time: 07/02/23 12:02 PM Result Value Ref Range Glucose, POC 113 70 - 199 mg/dL XR Knee Right 1 or 2 View Result Date: 07/01/2023 Narrative: EXAM DESCRIPTION: XR KNEE RIGHT 1 OR 2 VIEWS REASON FOR STUDY: Post- op Knee replacement Post op TECHNIQUE: Two views COMPARISON: 05/12/2023 FINDINGS: Total knee prosthesis identified with postsurgical changes of bone soft tissue. No unexpected findings. IMPRESSION: Postop appearance right knee replacement. THIS IS AN ELECTRONICALLY VERIFIED FINAL REPORT 07/01/2023 3:18 PM - Electronically signed by Chris Perez M.D. RB T: Report ID: [id number] ReadingLocation: [id number] Current Facility-Administered Medications Medication Dose Route Frequency Provider Last Rate Last Admin amLODIPine (NORVASC) tablet 10 mg 10 mg oral Daily Dahlia Mendez PA 10 mg at 07/02/23 0822 apixaban (ELIQUIS) tablet 2.5 mg 2.5 mg oral BID Dahlia Mendez PA 2.5 mg at 07/02/23 0822 atorvastatin (LIPITOR) tablet 20 mg 20 mg oral Nightly Dahlia Mendez PA 20 mg at 07/01/23 2107 calcitRIOL (ROCALTROL) capsule 0.25 mcg 0.25 mcg oral Daily Dahlia Mendez PA 0.25 mcg at 07/02/23 0837 dextrose (GLUTOSE) 40 % gel 15 g 15 g oral Q15 Min PRN Trudy Cuello PA Or dextrose (D10W) 10% bolus 250 mL 250 mL intravenous Q15 Min PRN Trudy Cuello PA glucagon injection 1 mg 1 mg intramuscular Q30 Min PRN Trudy Cuello PA HYDROmorphone (DILAUDID) injection 0.2 mg 0.2 mg intravenous Q4H PRN Kamar Gandara DO 0.2 mg at 07/02/23 1248 insulin lispro (HumaLOG, ADMELOG) 100 unit/mL injection 0-4 Units 0-4 Units subcutaneous Nightly Trudy Cuello PA insulin lispro (HumaLOG, ADMELOG) 100 unit/mL injection 0-5 Units 0-5 Units subcutaneous TID with meals Trudy Cuello PA [Held by Provider] losartan (COZAAR) tablet 100 mg 100 mg oral Daily Dahlia Mendez PA morphine injection 3 mg 3 mg intravenous Q10 Min PRN Carlos Becerril DO ondansetron (ZOFRAN) injection 4 mg 4 mg intravenous Q6H PRN Dahlia Mendez PA oxyCODONE (ROXICODONE) tablet 5 mg 5 mg oral Q4H PRN Dahlia Mendez PA 5 mg at 07/02/23 1423 polyethylene glycol (MIRALAX) packet 17 g 17 g oral Daily Dahlia Mendez PA 17 g at 07/02/23 0821 prochlorperazine (COMPAZINE) injection 5 mg 5 mg intravenous Q6H PRN Dahlia Mendez PA senna-docusate (PERICOLACE) 8.6-50 mg per tablet 1 tablet 1 tablet oral BID Bernardino Bahena MD 1 tablet at 07/02/23 0822 sodium chloride 0.9% flush 0.5-20 mL 0.5-20 mL intra-catheter Q8H POLLY Dahlia Mendez PA 10 mLat 07/01/23 2108 sodium chloride 0.9% flush 0.5-20 mL 0.5-20 mL intra-catheter PRN Dahlia Mendez PA Assessment and plan Active Hospital Problems Diagnosis Date Noted Arthritis of right knee 07/01/2023 S/P total knee arthroplasty, right 07/01/2023 Primary osteoarthritis of right knee 05/13/2023 Resolved Hospital Problems No resolved problems to display. Assessment Right knee osteoarthritis status post right TKA Chronic kidney disease stage IIIA Type 2 diabetes mellitus with CKD stage IIIA Essential hypertension Plan: 07/01/2023 - for pain control advised oral medications prior to taking IV medications. Discussed side effects of oral and IV opiates. Patient was worried about her chronic kidney disease. I advised that opiate so not affect chronic kidney disease. Advised not to take NSAIDs including Toradol For constipation will add senna b.i.d. Her creatinine is 1.0 which is encouraging maybe due to fluctuating volume status For diabetes her most recent A1c was 6.3 which is well controlled. She takes Ozempic at home she also takes Farxiga. I advised her we will hold his medications while inpatient. Will do sliding scale insulin only for now. For essential hypertension will hold losartan during the perioperative phase to reduce risk of LETY Continue amlodipine If blood pressure remains high and creatinine remained stable could restart losartan tomorrow morning 07/02/2023 -continue pain control. Would prefer her to use oral medications for pain control. -continue PT OT. Patient is requesting rehab placement. Discussed with social work msw and referrals have been sent out -continue sliding scale insulin only for diabetes. When she goes home she can get back on Ozempic and Farxiga. -continue amlodipine only 4 essential hypertension. Will continue holding losartan during the perioperative. Unless her blood pressure is high and provided creatinine stable. Creatinine is 1.3 today reflecting CKD stage IIIA which is her baseline. MDM level 2 follow up My total encounter time on 07/02/2023 was 40 minutes which was spent in the activities documented inthe note. This includes time spent prior to the visit and after the visit in direct care of the patient. This time does not include time spent in any separately reportable services. DISCLAIMER: This note was dictated with the assistance of a dictation software and there may occasionally be some mispelled or mistranslated/substituted words.? Bernardino Bahena MD Hospitalist, [facility] 07/02/2023 3:19 PM * Balbir Ayala - 07/02/2023 11:34 AM CDT Attempted visit but pt busy. 07/02/23 1100 Time Spent Start Time 1134 Patient Spiritual Assessment Spirituality Assessed Unable to assess Congregation Affiliation Anabaptist Clinical Encounter Type Visited With Patient Response Type Routine visit * Francisco Funez - 07/02/2023 10:41 AM CDT PASRR completed No Level II required. Individual ID [id number] Assessment ID [id number] Francisco Funez 10:41 AM 07/02/2023 * Nancy Martinez PTA - 07/02/2023 10:28 AM CDT Physical Therapy 07/02/23 1028 PT Last Visit Session Type Treatment Safe Environment Arm band checked;Patient found sitting in chair;Gait belt utilized for all out of bed mobility Subjective Agreeable to Therapy Family/Caregiver Present No Precautions Precautions Bed/Chair Alarm;Fall risk Activity Tolerance Activity Tolerance Comments fair Pain Assessment Pain Assessment 0-10 Pain Score 9 Pain Location Knee Pain Orientation Right Cognition Arousal/Alertness Alert Attention Span Appears intact Memory Appears intact Current communication Appears Intact Following Commands Follows all commands and directions without difficulty Compliance/Behavior Easy to engage Supine Supine-Exercises Right;Lower extremity Supine-Exercise Type Ankle pumps;Quad sets;Glut sets;SLR;ABD/ADD;Heel slides Reps/Sets 10 Supine-Motion AROM;AAROM Supine-Exercise Comments assist required for SLR's and heelslides Seated Seated-Exercises Lower extremity (right) Seated-Exercise Type Knee flex Reps/Sets 12/22 Seated-Motion AROM Bed Mobility 1 Bed Mobility From 1 Edge of bed Bed Mobility Type 1 To Bed Mobility to 1 Supine Level of Assistance 1 Minimum Assist;Minimal verbal cues Bed Mobility Comments 1 increased time required. min assist for surgcial LE during transfer. Increased pain Transfer 1 Transfer From 1 Sit Transfer Type 1 To and from Transfer to 1 Stand Transfer Device 1 Wheeled walker Transfer Level of Assistance 1 Contact Guard Assist;Minimum Assist;Minimal verbal cues Trials/Comments 1 increased time for transfer, vc's for proper hand placement and technique Ambulation 1 Distance (ft) 1 50 Device 1 Wheeled walker Assistance 1 Contact Guard Assist;Minimal verbal cues Gait: Requires verbal cues to 1 Use assistive device safely;Utilize appropriate gait sequencing;Improve upright posture Gait Deviations 1 Antalgic;Yasmin - decreased;Heel strike - decreased;Hip/knee flexion during swing phase - decreased;Posture - flexed;Step length - decreased;Weight bearing through UE???s - increased;Turns - difficulty Quality of Gait 1 fair- Ambulation Comments 1 Patient was given vc's to improve upright posture, patient ambulates with slower pace step to gait pattern. Gait is more antalgic in nature. vc's for technique and sequencing onturns. Safe Environment End of Therapy Session Safe Environment End of Therapy Session Patient left supine in bed;RN notified;Call light within reach;Overbed table within reach;Bed in lowest position with wheels locked Assessment Barriers to Discharge Current Mobility Status;Decreased caregiver support;Home environment challenged Plan Plan Continue with current plan Recommendation/Plan PT Recommendation/Plan Retirement Facility Patient at high risk for Falls;Injury due to decreased ability to care for self;Injury due to reduced functional status;Injury due to balance deficits;Injury at home as patient has not returned to prior level of function Recommend SNF due to Risk of injury at home;Unable to safely care for self in the home;Skilled therapy needed to address care for self in the home;Skilled therapy needed to address functional deficits;Skilled therapy needed for patient to return to prior level of independence Educated the patient to the role of physical therapy, plan of care, goals of therapy, rationale forprogressing mobility and home exercise program. Patient was left with all needs met and equipment intact. Mobility and ADL status posted at bedsideand within medical record. Multi-Disciplinary Problems (from Physical Therapy) Active Problems Problem: PT [facility] [place] Start Date: 07/02/23 Goal Start Date Expected End Date End Date PT LT - [facility] [place] 1 07/02/23 07/16/23 -- Goal Details: Pt will perform LE TKA seated/supine therex x 10 reps each, independently -progressing Goal Start Date Expected End Date End Date PT [facility] - [facility] [place] 2 07/02/23 07/16/23 -- Goal Details: Pt will perform all bed mobility with no assist. -progressing Goal Start Date Expected End Date End Date PT [facility] - [facility] [place] 3 07/02/23 07/16/23 -- Goal Details: Pt will perform sit to stand and bed to/from chair transfers with wheeled walker and no assist. -progressing Goal Start Date Expected End Date End Date PT [facility] - [facility] [place] 4 07/02/23 07/16/23 -- Goal Details: Pt will ambulate 150+ feet with wheeled walker and standby assist. -progressing Goal Start Date Expected End Date End Date PT [facility] - [facility] [place] 5 07/02/23 07/16/23 -- Goal Details: Pt will ascend/descend 2-4 stairs with handrail and standby assist.-not assessed * Daija Pandey OT - 07/02/2023 9:00 AM CDT Occupational Therapy 07/02/23 0900 General Chart Reviewed Yes Session Type Evaluation OT Received On 07/02/23 Safe Environment Patient found sitting at edge of bed;Gait belt utilized for all out of bed mobility Subjective Agreeable to Therapy Subjective Comment My knee is painful to bend Additional Pertinent History CKD, DM, GERD, iron deficiency anemia, HTN, OA Family/Caregiver Present No Current Functional Status OT Functional Mobility Pt found sitting EOB. Min A sit <> stand. Min A to take 3-4 steps fromEOB > chair. Due to pain unable to continue further. OT Self Care ADL assessment based upon task simulation, PLOF, cognitive status, B UE & LE ROM and strength, functional mobility and safety awarenes. Pt educated on AE to assist with LB due to knee pain. SUP and increased time to don pants using reaching, Min A to don L shoe due to increased foot swelling. BHATIA of materials to don ladle puller shirt. SUP to stand and complete simulated reaching activity. Educated and modeled how to use sock aid. Pt educated on where AE is available for purchase. Pt educated on shower transfer tech. Pt verbalized and demonstrated understanding. Precautions Precautions Bed/Chair Alarm;Fall risk Weight Bearing Restrictions Yes RLE Weight Bearing WBAT Home Living Type of Home House Home Layout One level Bathroom Shower/Tub Tub/shower unit Bathroom Toilet Standard Bathroom Equipment Shower chair Home Mobility Equipment-Available Single point cane Home Mobility Equipment-Currently Using Single point cane Home ADL Equipment-Available Animal Nutrition Consultant Home ADL Equipment-Currently Using (n/a) Additional Comments Pt lives at home alone, however plans to DC to [facility] home. Dt home is 1 story home with tub/shower chair, standard toilet seat. IND with adls, iadls, ambulating with cane. 1 fallin the last 6 mo Prior Function Level of [place] Independent with ADLs;Independent functional transfers;Independent with ambulation;Needs assistance with homemaking (assistance for laundry and house maintanence) Lives With Alone Receives Help From Family Driving Yes ADL Assistance Independent Instrumental ADL (IADL) Assistance Needs assistance Fall within the last 6 months Yes Fall within the last 6 months comment 1 Pain Assessment Pain Assessment 0-10 Pain Score 6 Pain Location Knee Pain Orientation Right Activity Tolerance Endurance Tolerates less than 10 min activity no significant change in vital signs Cognition Arousal/Alertness Alert Attention Span Appears intact Memory Appears intact Current communication Appears Intact Orientation Oriented X4 (person, place, time, situation) Following Commands Follows all commands and directions without difficulty Safety Judgment Good awareness of safety precautions Awareness of Errors Good awareness of errors made Insight Fully aware of deficits Problem Solving Able to problem solve independently Compliance/Behavior Easy to engage Cognitive Tests Cognitive Tests No Sensation Numbness/Tingling No Coordination Fine Motor WFL Serial Opposition WFL Hand Function Coordination Functional RUE Assessment RUE Assessment WFL LUE Assessment LUE Assessment WFL Safe Environment End of Therapy Session Safe Environment End of Therapy Session Patient left in chair;Chair alarm in place and activated;Call light within reach;Overbed table within reach Assessment Problem List Decreased endurance;Decreased balance;Decreased functional mobility;Decreased gross motor control;Decreased ADL independence;Pain;Gait Barriers to Discharge Current Mobility Status;Current ADL Status;Decreased caregiver support Plan Plan Plan of care initiated Recommendation/Plan OT Recommendation Retirement Facility Recommend SNF due to Risk of injury at home;Unable to safely care for self in the home;Skilled therapy needed to address care for self in the home;Skilled therapy needed to address functional deficits;Skilled therapy needed for patient to return to prior level of independence OT Frequency during current admission 5-7x/wk Treatment/Interventions during current admission ADL/IADL retraining;Balance Training;Compensatory technique education;Endurance training;Functional activity;Functional mobility training;Functional transfer training;Parent/caregiver training and education;Strengthening;Therapeutic activity;Therapeutic exercise;Transfer training;Upper extremity motor function/functional skills OT - Next Appointment 07/16/23 OT - OK to Discharge No OT Evaluation Complete Yes Multi-Disciplinary Problems (from Occupational Therapy) Active Problems Problem: OT [facility] [place] Start Date: 07/02/23 Goal Start Date Expected End Date End Date OT [facility] 1 07/02/23 07/16/23 -- Goal Details: 1) LE ADL IND'ly WITH AE PRN. Goal Start Date Expected End Date End Date OT LTG - [facility] 2 07/02/23 07/16/23 -- Goal Details: 2) FUNCTIONAL MOBILITY TO/FROM BATHROOM AND ALL ASPECTS TOILETING MODIFIED INDEP WITH DME. Goal Start Date Expected End Date End Date OT LTG - [facility] 3 07/02/23 07/16/23 -- Goal Details: 3) STAND AT SINK X4 MIN FOR ADL WITH GOOD BALANCE. Goal Start Date Expected End Date End Date OT LTG - Misc 4 07/02/23 07/16/23 -- Goal Details: PERFORM ITEM RETRIEVAL FROM HIGH/LOW POSITIONS WITH GOOD BALANCE/SAFETY. Goal Start Date Expected End Date End Date OT G - [facility] 5 07/02/23 07/16/23 -- Goal Details: PERFORM SIMULATED TUB/SHOWER TRANSFER TECHS WITH DME PRN. Educated the patient to the role of occupational therapy, plan of care, goals of therapy, rationalefor progressing mobility and use of call light. verbalized understanding. Cotx with TAYO Jolley for safety of patient and staff due to current diagnosis, medical status, and unknown level of functional performance prior to evaluation. * Amarilis Cid, PT - 07/02/2023 8:59 AM CDT Physical Therapy 07/02/23 0859 General Chart Reviewed Yes Session Type Evaluation PT Received On 07/02/23 Safe Environment Patient found sitting at edge of bed;Session completed bedside;Gait belt utilized for all out of bed mobility Subjective Agreeable to Therapy Additional Pertinent History PMH CKD stage 3, HTN, anemia, T2DM, HLD, leukocytosis, lymphedema Family/Caregiver Present No Physical Therapy-Patient Goal return to PLOF Precautions Precautions (S) Bed/Chair Alarm;Fall risk Weight Bearing Restrictions Yes RLE Weight Bearing WBAT Home Living Type of Home House Home Layout One level Home Access Stairs to enter without rails (daughter's home; HR present at pt's home) Entrance Stairs-Rails None Entrance Stairs-Number of Steps 2 (4 JUANCHO at pt's home) Home Mobility Equipment-Available Single point cane Home Mobility Equipment-Currently Using Single point cane Prior Function Level of [place] Independent with ADLs;Independent functional transfers;Independent with ambulation (homemaker to assist w/laundry and cleaning) Lives With Alone Receives Help From Family Driving Yes Mode of Transportation Car;Driven by self Fall within the last 6 months Yes Fall within the last 6 months comment 1 Activity Tolerance Endurance Tolerates less than 10 min activity no significant change in vital signs Pain Assessment Pain Assessment 0-10 Pain Score 6 Patient's Stated Pain Goal No pain Pain Type Acute pain Pain Location Knee Pain Orientation Right Cognition Arousal/Alertness Alert Attention Span Appears intact Current communication Appears Intact Orientation Oriented X4 (person, place, time, situation) Following Commands Follows all commands and directions without difficulty Safety Judgment Good awareness of safety precautions Compliance/Behavior Easy to engage Bed Mobility 1 Bed Mobility Comments 1 Pt sitting at edge of bed upon PT arrival Transfers Transfer Yes Transfer 1 Transfer From 1 Bed;Sit Transfer Type 1 To and from Transfer to 1 Chair with arms;Stand Technique 1 Sit to stand Transfer Device 1 Wheeled walker Transfer Level of Assistance 1 Minimum Assist Transfers 2 Transfer From 2 Bed Transfer Type 2 To Transfer to 2 Chair with arms Technique 2 Stand and step Transfer Device 2 Wheeled walker Transfer Level of Assistance 2 Minimum Assist Ambulation 1 Distance (ft) 1 3 Surface 1 Level tile Device 1 Wheeled walker Assistance 1 Minimum Assist Gait: Requires verbal cues to 1 Utilize appropriate gait sequencing Gait Deviations 1 Antalgic;Base of support - increased;Yasmin - decreased;Heel strike - decreased;Hip/knee flexion during swing phase - decreased;Lateral trunk lean/sway;Posture - flexed;Stance time- decreased;Step length - decreased;Weight shift - decreased RLE Assessment RLE Assessment X AROM RLE (degrees) RLE Overall AROM Deficits;Due to pain LLE Assessment LLE Assessment WFL Safe Environment End of Therapy Session Safe Environment End of Therapy Session Patient left in chair;Chair alarm in place and activated;Call light within reach;Overbed table within reach Assessment Prognosis Good Problem List Gait deviations;Decreased strength;Decreased range of motion;Decreased endurance;Impaired balance;Decreased mobility;Pain;Edema Barriers to Discharge Current Mobility Status;Decreased caregiver support;Home environment challenged Barriers to Discharge Comments pt lives alone, will go to stay with daughter temporarily, however, pt states her daughter can be busy with special needs child Plan Plan Plan of care initiated;If this is the last note, consider this the discharge summary Recommendation/Plan PT Recommendation/Plan (S) Retirement Facility Patient at high risk for Falls Recommend SNF due to Skilled therapy needed to address functional deficits PT Recommendation/Plan Comments (depending on progress, may progress to home with home health) PT Frequency during current admission Twice a day;5-7x/wk;Other (comment) (twice a day Mon-Fri, 1-2x/day Sat-Sun) Treatment/Interventions during current admission Balance Training;Bed mobility;Endurance training;Functional activity;Functional transfer training;Gait training;Range of motion;Stair training;Strengthening;Therapeutic activity;Therapeutic exercise;Transfer training PT Equipment Recommended (S) Wheeled walker PT - Next Appointment 07/16/23 PT Evaluation Complete Yes Multi-Disciplinary Problems (from Physical Therapy) Active Problems Problem: PT Misc Start Date: 07/02/23 Goal Start Date Expected End Date End Date PT LTG - [facility] [place] 1 07/02/23 07/16/23 -- Goal Details: Pt will perform LE TKA seated/supine therex x 10 reps each, independently Goal Start Date Expected End Date End Date PT LT - [facility] [place] 2 07/02/23 07/16/23 -- Goal Details: Pt will perform all bed mobility with no assist. Goal Start Date Expected End Date End Date PT [facility] [place] 3 07/02/23 07/16/23 -- Goal Details: Pt will perform sit to stand and bed to/from chair transfers with wheeled walker and no assist. Goal Start Date Expected End Date End Date PT LTG - Mis 4 07/02/23 07/16/23 -- Goal Details: Pt will ambulate 150+ feet with wheeled walker and standby assist. Goal Start Date Expected End Date End Date PT [facility] [place] 5 07/02/23 07/16/23 -- Goal Details: Pt will ascend/descend 2-4 stairs with handrail and standby assist. Educated the patient to the role of physical therapy, plan of care, goals of therapy, rationale forprogressing mobility and home safety. Patient was left with all needs met and equipment intact. Mobility and ADL status posted at bedsideand within medical record. * Dahlia Mendez PA - 07/02/2023 8:48 AM CDT Daily Progress Subjective Interval History: Pod 1, S/P right total knee arthroplasty performed by Dr. Gandara on 07/01/2023. Patient is doing okay this morning but is having a lot of pain in the knee. She has not yet been able to work with PTand OT. Patient denies chest pain, shortness of breath, fever, chills. Objective Vitals: 24hr Min/Max: Temp Min: 36.3 ??C (97.3 ??F) Max: 37.8 ??C (100 ??F) Pulse Min: 59 Max: 87 BP Min: 102/48 Max: 145/72 Resp Min: 14 Max: 25 SpO2 Min: 92 % Max: 100 % Most Recent : Vitals: 07/02/23 0716 BP: 144/65 Pulse: 75 Resp: 17 Temp: 37.1 ??C (98.8 ??F) SpO2: 98% I/O last 2 completed shifts: In: 2360 [P.O.:600; I.V.:1760] Out: 1375 [Urine:1275; Blood:100] I/O this shift: In: 361 [I.V.:361] Out: - Physical Exam Vitals and nursing note reviewed. Pulmonary: Effort: Pulmonary effort is normal. Neurological: Mental Status: She is alert and oriented to person, place, and time. Psychiatric: Mood and Affect: Mood normal. Behavior: Behavior normal. Patient is lying in bed. SCDs in place. Polar Care ice in place. Dressings dry and intact. Patient is neurovascularly intact to the right lower extremity with palpable dorsalis pedis and posterior tibialis pulses and sensation grossly intact to light touch. She demonstrates good dorsiflexion and plantar flexion of the right ankle. Calf compartments soft and compressible. Assessment/Plan Principal Problem: Primary osteoarthritis of right knee Active Problems: Arthritis of right knee S/P total knee arthroplasty, right Plan: POD 1 T2DM, CKD, HTN - hospitalist team is on board, appreciate recommendations and assistance in managing this patient Weight-bearing status 100% bilaterally as tolerated DVT prophylaxis Eliquis 2.5 mg b.i.d. PT for mobility Analgesia p.r.n. as ordered Discharge planning patient will likely need to discharge to a skilled rehab or nursing facility, pending PT and OT evaluation today VINCENZO Lopez Cosigned by Kamar Gandara DO at 07/03/2023 4:26 PM CDT documented in this encounter H&P Notes * Kamar Gandara DO - 07/01/2023 11:54 AM CDT Preoperative History and Physical Subjective Patient is a 68 y.o. female with chief complaint of right knee pain. HPI: Patient presents today for surgery on her right knee. She has a longstanding history of pain and osteoarthritis in her right knee. Unfortunately she has been having increasing episodes of pain and instability. Her knee is giving out and causing her to fall. Also having pain medially. This is unsatisfactory for her. Her pain is affecting her quality life and ability perform ADLs. She is here todayfor right total knee arthroplasty Past Medical History: Diagnosis Date Benign neoplasm of breast Blood in urine CKD (chronic kidney disease), stage III ([facility]) DM2 (diabetes mellitus, type 2) ([facility]) Ear pain, bilateral 06/11/2023 Pt c/o swimmer's ear type pain at this time. GERD (gastroesophageal reflux disease) Occasional, R/T diet. History of iron deficiency anemia Hypertension Last menstrual period (LMP) > 10 days ago 1995 Motion sickness Osteoarthritis Proteinuria Past Surgical History: Procedure Laterality Date BREAST BIOPSY Right 2016 Benign BREAST BIOPSY Left 2008 Benign ECTOPIC SURGERY 1976 HYSTERECTOMY 1995 TUBAL LIGATION 1982 Medications Prior to Admission Medication Sig Dispense Refill Last Dose Accu-Chek Guide Me Glucose Mtr misc 1 Insert daily 07/01/2023 Accu-Chek Guide test strips strip USE ONE STRIP TO CHECK GLUCOSE DAILY 07/01/2023 Accu-Chek Softclix Lancets lancets USE TO CHECK GLUCOSE ONCE DAILY 07/01/2023 amLODIPine (NORVASC) 10 mg tablet Take 1 tablet (10 mg total) by mouth daily 07/01/2023 at 0500 atorvastatin (LIPITOR) 20 mg tablet Take 1 tablet (20 mg total) by mouth daily 06/30/2023 at 0700 calcitRIOL (ROCALTROL) 0.25 mcg capsule Take 1 capsule (0.25 mcg total) by mouth daily 06/30/2023 at 0700 dapagliflozin propanediol (Farxiga) 10 mg tablet Take 1 tablet every day by oral route. Past Week ergocalciferol (VITAMIN D) 50,000 unit capsule Take 1 capsule (50,000 Units total) by mouth once a week Past Week losartan (COZAAR) 100 mg tablet Take 1 tablet (100 mg total) by mouth daily 3 06/30/2023 at 0700 Ozempic 0.25 mg or 0.5 mg (2 mg/3 mL) pen injector injection Inject 0.5 mg under the skin once a week Injects on Sundays. 06/21/2023 polyethylene glycol 236-22.74-6.74 -5.86 gram solution Take 240 mL by mouth once More than a month Allergies Allergen Reactions Shrimp Swelling and Swollen tongue Shellfish Containing Products Swelling Social History Tobacco Use Smoking status: Never Passive exposure: Past Smokeless tobacco: Never Substance and Sexual Activity Drug use: Never Sexual activity: Defer Alcohol Use: Not At Risk (07/01/2023) AUDIT-C Frequency of Alcohol Consumption: Never Average Number of Drinks: Patient does not drink Frequency of Binge Drinking: Never Family History Problem Relation Age of Onset Breast cancer Sister Adenocarcinoma of breast - (Added by TW Conv) Breast cancer Father's Sister Review of Systems: Review of systems per HPI and otherwise all other systems are negative Objective Vitals: Arrival Vitals [07/01/23 1100] Temp 36.7 ??C (98 ??F) Pulse 81 Resp 16 BP 145/72 SpO2 99 % Temp src Temporal Heart Rate Source Monitor Patient Position BP Location FiO2 (%) 24hr Min/Max: Temp Min: 36.7 ??C (98 ??F) Max: 36.7 ??C (98 ??F) Pulse Min: 81 Max: 81 BP Min: 145/72 Max: 145/72 Resp Min: 16 Max: 16 SpO2 Min: 99 % Max: 99 % Most Recent : Vitals: 07/01/23 1100 BP: 145/72 Pulse: 81 Resp: 16 Temp: 36.7 ??C (98 ??F) SpO2: 99% No intake/output data recorded. No intake/output data recorded. Physical exam: Gen: No acute distress, well developed Head: Atraumatic Eyes: EOM are normal Ears: Hearing intact to spoken word Cardiovascular: Rate is regular Pulmonary: No respiratory distress Adominal: soft Neurologic: Patient oriented to person, place and time Psychiatric: Normal mood and affect MSK:Exam of the right knee shows moderate effusion. No erythema or signs of infection. Extension isfull flexion to 120??. There is some laxity with varus valgus stressing medially. Stable with anterior posterior drawer. Patella tracking midline. No pain motion of the hip Lab/Radiology/Diagnostic Review: x-rays of the right knee show moderate degenerative changes with near complete loss joint space medial compartment. 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 Unfortunately they are no longer responding to conservative treatments. There knee pain is affecting her quality life and ability to perform ADLs. This is unsatisfactory for them. I discussed risks benefits complications alternatives to surgery including but not limited to infection, neurovascular injury, continued pain, need for additional surgery, complications with hardware, loosening, stiffness, DVT pulmonary embolism and complications with anesthesia. Also discussed postoperative course, need to participate in therapy and failure to do so canaffect outcomes. Patient understands and is wishing to proceed. We will proceed with right total knee arthroplasty. All questions addressed today documented in this encounter Consult Notes * Bernardino Bahena MD - 07/01/2023 6:47 PM CDTAssociated Order(s): IP CONSULT TO HOSPITALIST Images from the original note were not included. Consult Reason for Consult: Diabetes mellitus hypertension Requesting Provider: Marizol MACE. Lindsay Pedersen is a 68 y.o. female who presents to the orthopedic floor from the OR status post elective right knee arthroplasty for longstanding osteoarthritis and increasing pain We are asked to consult for management of diabetes mellitus and hypertension and also CKD Patient is currently complaining of pain 7/10 on the operated knee. Oral medications not helping she is trying to get IV medications for pain control. Denies any other complaints Past Medical History: Diagnosis Date Benign neoplasm of breast Blood in urine CKD (chronic kidney disease), stage III ([facility]) DM2 (diabetes mellitus, type 2) ([facility]) Ear pain, bilateral 06/11/2023 Pt c/o swimmer's ear type pain at this time. GERD (gastroesophageal reflux disease) Occasional, R/T diet. History of iron deficiency anemia Hypertension Last menstrual period (LMP) > 10 days ago 1995 Motion sickness Osteoarthritis Proteinuria Past Surgical History: Procedure Laterality Date BREAST BIOPSY Right 2015 Benign BREAST BIOPSY Left 2008 Benign ECTOPIC SURGERY 1976 HYSTERECTOMY 1995 TUBAL LIGATION 1982 Medications Prior to Admission Medication Sig Dispense Refill Last Dose Accu-Chek Guide Me Glucose Mtr misc 1 Insert daily 07/01/2023 Accu-Chek Guide test strips strip USE ONE STRIP TO CHECK GLUCOSE DAILY 07/01/2023 Accu-Chek Softclix Lancets lancets USE TO CHECK GLUCOSE ONCE DAILY 07/01/2023 amLODIPine (NORVASC) 10 mg tablet Take 1 tablet (10 mg total) by mouth daily 07/01/2023 at 0500 atorvastatin (LIPITOR) 20 mg tablet Take 1 tablet (20 mg total) by mouth daily 06/30/2023 at 0700 calcitRIOL (ROCALTROL) 0.25 mcg capsule Take 1 capsule (0.25 mcg total) by mouth daily 06/30/2023 at 0700 dapagliflozin propanediol (Farxiga) 10 mg tablet Take 1 tablet every day by oral route. Past Week ergocalciferol (VITAMIN D) 50,000 unit capsule Take 1 capsule (50,000 Units total) by mouth once a week Past Week losartan (COZAAR) 100 mg tablet Take 1 tablet (100 mg total) by mouth daily 3 06/30/2023 at 0700 Ozempic 0.25 mg or 0.5 mg (2 mg/3 mL) pen injector injection Inject 0.5 mg under the skin once a week Injects on Sundays. 06/21/2023 polyethylene glycol 236-22.74-6.74 -5.86 gram solution Take 240 mL by mouth once More than a month Allergies Allergen Reactions Shrimp Swelling and Swollen tongue Shellfish Containing Products Swelling Social History Tobacco Use Smoking status: Never Passive exposure: Past Smokeless tobacco: Never Substance and Sexual Activity Drug use: Never Sexual activity: Defer Alcohol Use: Not At Risk (07/01/2023) AUDIT-C Frequency of Alcohol Consumption: Never Average Number of Drinks: Patient does not drink Frequency of Binge Drinking: Never Family History Problem Relation Age of Onset Breast cancer Sister Adenocarcinoma of breast - (Added by TW Conv) Breast cancer Father's Sister Review of Systems: 1. Constitutional Denies: weight/appetite loss, weight gain, fever, chills, night sweats, fatigue 2. Eyes Denies: change in vision, double vision, eye pain, eye discharge, icterus 3. ENT Denies: change in hearing, ear pain, ear discharge, nose bleed, nasal congestion, sore throat 4. Respiratory Denies: SOB, wheezing, cough, sputum, hemoptysis 5. CV Denies: chest pain, palpitations, syncope, edema, dyspnea, Orthopnea, PND 6. GI Denies: abdominal pain, nausea, vomiting, change in bowel habits, diarrhea, vomiting, constipation,melena, BRBPR 7. Denies: dysuria, frequency, hematuria, nocturia, urgency 8. Metabolic/Endocrine Denies: cold intolerance, heat intolerance, polyphagia, polydipsia, 9. Neurologic Denies: weakness, headache, dizziness, seizures, change in mental status, loss of consciousness, focal weakness, focal numbness 10. Musculoskeletal Denies: myalgia, joint pain, joint redness, joint swelling, extremity pain 11. Hematologic/Oncology Denies: bleeding, bruising, hematoma, lymphadenopathy, icterus 12. Skin Denies open wounds, new bruising, new change of color, itching Past Medical History: Past Medical History: Diagnosis Date Benign neoplasm of breast Blood in urine CKD (chronic kidney disease), stage III ([facility]) DM2 (diabetes mellitus, type 2) ([facility]) Ear pain, bilateral 06/11/2023 Pt c/o swimmer's ear type pain at this time. GERD (gastroesophageal reflux disease) Occasional, R/T diet. History of iron deficiency anemia Hypertension Last menstrual period (LMP) > 10 days ago 1995 Motion sickness Osteoarthritis Proteinuria ? Past Surgical History: Past Surgical History: Procedure Laterality Date BREAST BIOPSY Right 2016 Benign BREAST BIOPSY Left 2008 Benign ECTOPIC SURGERY 1976 HYSTERECTOMY 1995 TUBAL LIGATION 1981 Medication Allergies: Allergies Allergen Reactions Shrimp Swelling and Swollen tongue Shellfish Containing Products Swelling Family History: Family History Problem Relation Age of Onset Breast cancer Sister Adenocarcinoma of breast - (Added by TW Conv) Breast cancer Father's Sister Social History:? reports that she has never smoked. She has been exposed to tobacco smoke. She has never used smokeless tobacco. She reports that she does not use drugs. Patient denies consuming alcoholic drinks. Medications Prior to Admission Medication Sig Dispense Refill Last Dose Accu-Chek Guide Me Glucose Mtr misc 1 Insert daily 07/01/2023 Accu-Chek Guide test strips strip USE ONE STRIP TO CHECK GLUCOSE DAILY 07/01/2023 Accu-Chek Softclix Lancets lancets USE TO CHECK GLUCOSE ONCE DAILY 07/01/2023 amLODIPine (NORVASC) 10 mg tablet Take 1 tablet (10 mg total) by mouth daily 07/01/2023 at 0500 atorvastatin (LIPITOR) 20 mg tablet Take 1 tablet (20 mg total) by mouth daily 06/30/2023 at 0700 calcitRIOL (ROCALTROL) 0.25 mcg capsule Take 1 capsule (0.25 mcg total) by mouth daily 06/30/2023 at 0700 dapagliflozin propanediol (Farxiga) 10 mg tablet Take 1 tablet every day by oral route. Past Week ergocalciferol (VITAMIN D) 50,000 unit capsule Take 1 capsule (50,000 Units total) by mouth once a week Past Week losartan (COZAAR) 100 mg tablet Take 1 tablet (100 mg total) by mouth daily 3 06/30/2023 at 0700 Ozempic 0.25 mg or 0.5 mg (2 mg/3 mL) pen injector injection Inject 0.5 mg under the skin once a week Injects on Sundays. 06/21/2023 polyethylene glycol 236-22.74-6.74 -5.86 gram solution Take 240 mL by mouth once More than a month Physical Exam Vitals: 24hr Min/Max: Temp Min: 36.3 ??C (97.3 ??F) Max: 36.7 ??C (98 ??F) Pulse Min: 59 Max: 86 BP Min: 102/48 Max: 145/72 Resp Min: 14 Max: 25 SpO2 Min: 92 % Max: 100 % Weight: 97.1 kg (214 lb), Body mass index is 39.14 kg/m??. No intake/output data recorded. I/O this shift: In: 500 [I.V.:500] Out: 525 [Urine:425; Blood:100] General appearance Alert & oriented to person, place & time, cooperative, no distress Head Eyes Ears Nose Throat Neck Supple, no JVD Lungs Clear to auscultation bilaterally, chest symmetry with respirations, normal vesicular breath sounds, no wheezes or crackles Chest wall no tenderness on percussion Heart Regular rate and rhythm, S1, S2 normal, no murmurs, clicks, rubs or gallop Abdomen Soft, non-tender. Bowel sounds normal. No masses, No organomegaly Extremities Pulses Skin Lymph nodes Neurologic Grossly non-focal Labs in the past:? Hematology Lab History Latest Ref Rng & Units 06/11/2023 09:28 07/01/2023 17:18 Labs - Hematology WBC 3.8 - 9.9 K/cumm 9.6 17.5 Total Hb, POC 11.9 - 15.5 g/dL 12.8 12.9 Hct 35.6 - 45.5 % 40.2 40.8 Plt 150 - 400 K/cumm 292 294 Neutrophil abs 1.5 - 6.5 K/cumm 5.5 Lymphocytes, abs 0.8 - 3.3 K/cumm 3.4 Chem/LFT Lab History Latest Ref Rng & Units 06/11/2023 09:28 07/01/2023 17:18 Labs-Chem/LFT Sodium 135 - 145 mmol/L 137 Creatinine 0.60 - 1.10 mg/dL 1.10 1.00 Bilirubin, total 0.1 - 1.2 mg/dL 0.4 0.2 AST 10 - 45 Units/L 14 23 ALT 7 - 45 Units/L 7 14 Alk phos 40 - 130 Units/L 79 93 CrCl- Actual Body Weight (Cockcroft-Gault) 70.6 83.7 Active Medications: Current Facility-Administered Medications: [START ON 07/02/2023] amLODIPine (NORVASC) tablet 10 mg, 10 mg, oral, Daily, Dahlia Mendez PA [START ON 07/02/2023] apixaban (ELIQUIS) tablet 2.5 mg, 2.5 mg, oral, BID, Dahlia Mendez PA atorvastatin (LIPITOR) tablet 20 mg, 20 mg, oral, Nightly, Dhalia Mendez PA calcitRIOL (ROCALTROL) capsule 0.25 mcg, 0.25 mcg, oral, Daily, Dahlia Mendez PA, 0.25 mcg at 07/01/23 1628 ceFAZolin (ANCEF) 2,000 mg/20 mL in sterile water (premix) 2,000 mg, 2,000 mg, intravenous, Q8H, Dahlia Mendez PA dextrose (GLUTOSE) 40 % gel 15 g, 15 g, oral, Q15 Min PRN OR dextrose (D10W) 10% bolus 250 mL, 250 mL, intravenous, Q15 Min PRN, Trudy Cuello PA glucagon injection 1 mg, 1 mg, intramuscular, Q30 Min PRN, Trudy Cuello PA HYDROmorphone (DILAUDID) injection 0.2 mg, 0.2 mg, intravenous, Q4H PRN, Kamar Gandara DO insulin lispro (HumaLOG, ADMELOG) 100 unit/mL injection 0-4 Units, 0-4 Units, subcutaneous, Nightly, Trduy Cuello PA insulin lispro (HumaLOG, ADMELOG) 100 unit/mL injection 0-5 Units, 0-5 Units, subcutaneous, TID with meals, Trudy Cuello PA Lactated Ringer's (LR) infusion, 100 mL/hr, intravenous, Continuous, Dahlia Mendez PA, Last Rate: 100 mL/hr at 07/01/23 1618, 100 mL/hr at 07/01/23 1618 [Held by Provider] losartan (COZAAR) tablet 100 mg, 100 mg, oral, Daily, Dahlia Mendez PA morphine injection 3 mg, 3 mg, intravenous, Q10 Min PRN, Carlos Becerril DO ondansetron (ZOFRAN) injection 4 mg, 4 mg, intravenous, Q6H PRN, Dahlia Mendez PA oxyCODONE (ROXICODONE) tablet 5 mg, 5 mg, oral, Q4H PRN, Dahlia Mendez PA, 5 mg at 07/01/23 1741 polyethylene glycol (MIRALAX) packet 17 g, 17 g, oral, Daily, Dahlia Mendez PA prochlorperazine (COMPAZINE) injection 5 mg, 5 mg, intravenous, Q6H PRN, Dahlia Mendez PA senna-docusate (PERICOLACE) 8.6-50 mg per tablet 1 tablet, 1 tablet, oral, BID, Bernardino Bahena MD sodium chloride 0.9% flush 0.5-20 mL, 0.5-20 mL, intra-catheter, Q8H POLLY, Dahlia Mendez PA sodium chloride 0.9% flush 0.5-20 mL, 0.5-20 mL, intra-catheter, PRN, Dahlia Mendez PA Hospital problems: Principal Problem: Primary osteoarthritis of right knee Active Problems: Arthritis of right knee S/P total knee arthroplasty, right No problem-specific Assessment & Plan notes found for this encounter. Assessment: Right knee osteoarthritis status post right TKA Chronic kidney disease stage IIIA Type 2 diabetes mellitus with CKD stage IIIA Essential hypertension Plan: - for pain control advised oral medications prior to taking IV medications. Discussed side effects of oral and IV opiates. Patient was worried about her chronic kidney disease. I advised that opiateso not affect chronic kidney disease. Advised not to take NSAIDs including Toradol For constipation will add senna b.i.d. Her creatinine is 1.0 which is encouraging maybe due to fluctuating volume status For diabetes her most recent A1c was 6.3 which is well controlled. She takes Ozempic at home she also takes Farxiga. I advised her we will hold his medications while inpatient. Will do sliding scale insulin only for now. For essential hypertension will hold losartan during the perioperative phase to reduce risk of LETY Continue amlodipine If blood pressure remains high and creatinine remained stable could restart losartan tomorrow morning DVT prophylaxis: On Eliquis 2.5 b.i.d. Current Code Status: Full Code? Plan of care discussed in detail with patient and her family members at bedside Medical decision making: Level 2 consult DISCLAIMER: This note was dictated with the assistance of a dictation software and there may occasionally be some mispelled or mistranslated/substituted words.? Bernardino Bahena MD 6:47 PM 07/01/2023 [facility] Hospitalist Group documented in this encounter Nursing Notes * Rut Bartlett RN - 07/03/2023 2:30 PM CDT Reviewed discharge instructions with Lindsay Pedersen, and provided with a copy of the after visit summary. Questions encouraged. Patient verbalized understanding of discharge instructions, and denies additional needs. Discharge to Rehab via [facility] transport Transported by: wheelchair with transport team documented in this encounter Miscellaneous Notes * Plan of Care - Rut Bartlett RN - 07/03/2023 10:16 AM CDT Goals: Clinical Goals for the Shift: pain control, safety, mobility Summary: Patient up to bedside commode, voiding clear yellow urine and tolerated well. Tolerating diet and PO fluids.Dressing dry and intact. Problem: Fall Risk Goal: Ability to state ways to decrease the risk of falls will improve Outcome: Progressing Flowsheets (Taken 07/03/2023699) Ability to state ways to decrease the risk of falls will improve: Teach fall prevention measures Goal: Will remain free from falls Outcome: Progressing Flowsheets (Taken 07/03/2023699) Will remain free from falls: Assess risk factors for falls Implement fall prevention measures Goal: Will remain free from injury from falls Outcome: Progressing Flowsheets (Taken 07/03/2023699) Will remain free from injury from falls: Provide safe environment for conduction of activities of daily living in hospital environment Problem: Lack of Knowledge Goal: Ability to develop a pain control plan will improve Outcome: Progressing Flowsheets (Taken 07/03/2023699) Ability to develop a pain control plan will improve: Explain causes of pain and how long pain can be expected to last Teach information regarding pain management Educate pain scale for assessing level of pain Problem: Medication Goal: Satisfaction with pain management medication regimen will improve Outcome: Progressing Flowsheets (Taken 07/03/2023699) Satisfaction with pain management medication regimen will improve: Assess satisfaction with pain management regimen Evaluate medication effects Manage analgesics Provide administration of medications prior to painful activities Problem: Sensory Goal: Ability to identify factors that increase pain levels will improve while working to decrease the patient's pain levels Outcome: Progressing Flowsheets (Taken 07/03/2023699) Ability to identify factors that increase pain levels will improve while working to decrease patients pain levels: Assess pain status Provide hot or cold therapy Assess effects of pain control measures Problem: Coping Goal: Ability to cope will improve Outcome: Progressing Flowsheets (Taken 07/03/2023699) Ability to cope will Improve: Provide emotional support Problem: Health Behavior Goal: Identification of resources available to assist in meeting health care needs will improve Outcome: Progressing Flowsheets (Taken 07/03/2023699) Identification of resources available to assist in meeting health care needs will improve: Collaborate with all therapies Problem: Discharge Planning Goal: Understanding discharge needs will improve Outcome: Progressing Flowsheets (Taken 07/03/2023699) Understanding of discharge needs will improve: Discuss information regarding discharge instructions Identify discharge learning needs (meds, wound care, etc.) Arrange for needed discharge resources and transportation as appropriate Identify discharge barriers Problem: Skin/Tissue Integrity Goal: Skin integrity remains intact Outcome: Progressing Flowsheets (Taken 07/03/2023699) Skin integrity remains intact: Assess and document risk factors for pressure injury development Assess and document skin integrity Monitor for areas of redness and/or skin breakdown Goal: Incisions, wounds, or drain sites healing without S/S of infection Outcome: Progressing Flowsheets (Taken 07/03/2023699) Incision(s), Wound(s) or Drain Site(s) healing without S/S of infection: Assess and document risk factors for pressure injury development Assess and document skin integrity Problem: Musculoskeletal Goal: Return mobility to safest level of function Outcome: Progressing Flowsheets (Taken 07/03/2023699) Return mobility to safest level of function: Assess patient stability and activity tolerance for standing, transferring and ambulating with or without assistive devices Obtain PT/OT consults as needed Problem: Gastrointestinal Goal: Maintains or returns to baseline bowel function Outcome: Progressing Flowsheets (Taken 07/03/2023699) Maintains or returns to baseline bowel function: Assess bowel function, evaluate bowel sounds and signs of abdominal distention Administer IV fluids as ordered to ensure adequate hydration Encourage mobilization and activity Encourage oral fluids to ensure adequate hydration Problem: Genitourinary Goal: Absence of urinary retention Outcome: Progressing Flowsheets (Taken 07/03/2023699) Absence of urinary retention: Assess patient???s ability to void and empty bladder Assess amount and/or characteristics of urine Problem: Infection Goal: Absence of infection during hospitalization Outcome: Progressing Flowsheets (Taken 07/03/2023699) Absence of infection during hospitalization: Assess and monitor for signs and symptoms of infection Monitor lab/diagnostic results Monitor all insertion sites i.e., indwelling lines, tubes and drains and evaluate for need daily Problem: Lack of Knowledge Goal: Ability to describe self care measures that may prevent or decrease complications related to Type 2 Diabetes will improve Outcome: Progressing Flowsheets (Taken 07/03/2023699) Ability to describe self care measures that may prevent or decrease complications related to Type 2Diabetes will improve: Teach risks of complications of diabetes Problem: Neurosensory Goal: Achieves maximal functionality and self care Outcome: Progressing * Plan of Care - Carlita Irby RN - 07/03/2023 5:20 AM CDT Goals: Clinical Goals for the Shift: pain control, safety Summary: pt appears to be resting well on rounds, medicated x1 for c/o pain. Incont of large amt ofurine x1 this shift. Does not want to get out of bed to use bathroom, dressing remains dry and intact. * Initial Assessments - Eufemia Lim LCSW - 07/02/2023 4:33 PM CDT CM Initial Assessment Interview Note Information Obtained From: Patient (07/02/231630) Admission Source: Scheduled surgery Impression: Right knee replacement with Dr. Kamar Gandara Plan Includes: PT/OT to eval and treat; discharge is pending therapy and pain tolerance. Primary Source of Transportation: Does the patient need discharge transport arranged?: No (07/02/23 163) Health Insurance Coverage: Primary Coverage Payor Plan Insurance Group Employer/Plan Group [employer] [id number] Payor Plan Address Payor Plan Phone Number Payor Plan Fax Number Effective Dates [phone] 04/24/2023 - None Entered [facility] [address] Subscriber Name Subscriber Date Member ID LINDSAY PEDERSEN A [id number] Secondary Coverage Payor Plan Insurance Group Employer/Plan Group [employer] Payor Plan Address Payor Plan Phone Number Payor Plan Fax Number Effective Dates [address] [address] 09/21/2021 - None Entered [facility] [address] Subscriber Name Subscriber Date Member ID LINDSAY PEDERSEN 1955 [id number] Pharmacy: [facility] [place] [address] [facility] [address] Primary Care Provider: Fidencio French MD Prior to Admission: Functional Status: Independent with ADLs Primary Caregiver: Self Support System: Children Home Care Services: No Outpatient Services: No Durable Medical Equipment: Cane (single prong) Living Arrangements: Alone Type of Residence: Private residence Steps in home?: Yes, Outside of home Number of steps outside: 4 steps Medication management: Independent (07/02/231630) SDOH: Transportation: In the past 12 months, has lack of transportation kept you from medical appointments or from getting medications?: No In the past 12 months, has lack of transportation kept you from meetings, work, or from getting things needed for daily living?: No (07/02/231631) Financial Resource: How hard is it for you to pay for the very basics like food, housing, medical care, and heating?: Not hard at all (07/02/231631) Housing: In the last 12 months, was there a time when you were not able to pay the mortgage or rent on time?: No In the last 12 months, how many places have you lived?: 1 In the last 12 months, was there a time when you did not have a steady place to sleep or slept in ashelter (including now)?: No (07/02/231632) Utilities: No, (07/02/231631) Social Connections: In a typical week, how many times do you talk on the phone with family, friends, or neighbors?: More than three times a week How often do you get together with friends or relatives?: More than three times a week How often do you attend sikhism or taoism services?: More than 4 times per year Do you belong to any clubs or organizations such as sikhism groups, unions, fraternal or athletic groups, or school groups?: No How often do you attend meetings of the clubs or organizations you belong to?: Never Are you , , , , never , or living with a partner?: Patient declined (07/02/231631) Food Insecurity: Within the past 12 months, you worried that your food would run out before you got the money to buymore.: Never true Within the past 12 months, the food you bought just didn't last and you didn't have money to get more.: Never true (07/02/23 1633) Potential discharge needs include: Home Health: group home, Physical therapy (07/02/23 1631) Behavioral Health Services: Behavioral Health Services: No (07/02/23 163) Patient expects to be Discharged to: Retirement Facility, (07/02/23 163) Additional Information: director of creative services met with patient at bedside to discuss discharge planning. Patient placed her daughter, Maria Elena, on speakerphone while RN RE[facility]ABILITATION was in the room. Patient stated that she plans to go to rehab at discharge. RN REHABILITATION explained insurance coverage and provided Skilled NursingFacility (SNF) list of in-network facilities. Maria Elena asked about [facility]. RN REHABILITATION explainedthat patient does not meet criteria to go to an acute rehab and that insurance would not approve her to do so. RN REH[facility]ILITATION encouraged patient to choose multiple places so that a back up plan could be in place if their first choice is unable to accept. Patient reviewed list and chose [facility] and asked that RN [facility] follow up for second choice after patient and Maria Elena have time to review the list. Referrals sent via SERPs. RN [facility] received call from Maria Elena. Maria Elena stated that she would like [facility]ATION to check with [facility]. RN [facility]ILITATION stated that referral would be sent. [facility] notified that [facility] ([facility]) does not havebed availability at this time. Maria Elena asked why [facility] was on the list if they cannot go there. RN REHABILITATION stated that [facility] was listed because it was in-network with patient's insurance & that the list does n ot reflect bed availability - only what is in network with patient's insurance. RN REHABILITATION met with patient at bedside twice. RN REHABILITATION explained to patient multiple times that [facility] nor [facility] have bed availability at this time but RN RE[facility]ILITATION could check again tomorrow if patient is ready for discharge at that time. Patient stated, I was told in the class that if I didn't feel like going then I could just ask and stay here. RN REHABILITATION stated that patient needs a medical reason to stay in the hospital and that staying her until the facility of her choice had a bed available was not an option. Patient stated, I shouldn't have to go to a place I don't want to or isn't highly rated. RN REHABILITATION voiced understanding and tried to address patient's concerns. Patient again asked if [facility] was accepting. RN [facility]ATION again stated that they do not have beds available at this time. Patient asked about [facility]. RN RE[facility]ILITATION confirmed that [facility] could accept as the precision farming coordinator for [facility] had asked if patient would be interested in [facility] Patient stated that she would like totalk to the admission person to further understand the facility. RN REHABILITATION offered to contact Jailyn in admissions to come speak with the patient. Patient was agreeable. RN REHABILITATION spoke with Jailyn who stated that she would meet with patient first thing tomorrow morning. Patient will require authorization though [employer] [facility] Medicare. Patient's Identified Problem/Goal Problem: Ensure acute medical needs are met and that patient has a safe discharge plan. Goal: Secure a discharge plan that patient/family are agreeable with and ensure patient has continuum of care. Case management will follow for discharge planning and send referrals as needed. Goals include: To assure continuity of care, To maximize coping skills, To assure patient is in a safe environment and To assure access to community resources. Plan includes: 1. Collaboration with patient, MD, direct care nurse, [place], and other members of the health care team to assure needed interventions completed. 2. Return patient to optimal level of self-care post discharge. 3. Breeding Technician will follow for Discharge Planning - interventions as needed 4. Anticipated level of care at discharge 5. Planned Discharge Disposition Eufemia Lim LCSW 07/02/2023 4:50 PM * Plan of Care - Rut Bartlett RN - 07/02/2023 4:32 PM CDT Goals: Clinical Goals for the Shift: pain control, safety Summary: Patient was up to commode this AM to void. Tolerated well. Dressing is clean dry and intact. Vitals normal. Problem: Fall Risk Goal: Ability to state ways to decrease the risk of falls will improve Outcome: Progressing Flowsheets (Taken 07/02/2023 0700) Ability to state ways to decrease the risk of falls will improve: Teach fall prevention measures Goal: Will remain free from falls Outcome: Progressing Flowsheets (Taken 07/02/2023699) Will remain free from falls: Assess risk factors for falls Implement fall prevention measures Goal: Will remain free from injury from falls Outcome: Progressing Flowsheets (Taken 07/02/2023699) Will remain free from injury from falls: Provide safe environment for conduction of activities of daily living in hospital environment Problem: Lack of Knowledge Goal: Ability to develop a pain control plan will improve Outcome: Progressing Flowsheets (Taken 07/02/2023699) Ability to develop a pain control plan will improve: Explain causes of pain and how long pain can be expected to last Teach information regarding pain management Educate pain scale for assessing level of pain Problem: Medication Goal: Satisfaction with pain management medication regimen will improve Outcome: Progressing Flowsheets (Taken 07/02/2023699) Satisfaction with pain management medication regimen will improve: Assess satisfaction with pain management regimen Evaluate medication effects Manage analgesics Provide administration of medications prior to painful activities Problem: Sensory Goal: Ability to identify factors that increase pain levels will improve while working to decrease the patient's pain levels Outcome: Progressing Flowsheets (Taken 07/02/2023699) Ability to identify factors that increase pain levels will improve while working to decrease patients pain levels: Assess pain status Provide hot or cold therapy Assess effects of pain control measures Problem: Coping Goal: Ability to cope will improve Outcome: Progressing Flowsheets (Taken 07/02/2023699) Ability to cope will Improve: Provide emotional support Problem: Health Behavior Goal: Identification of resources available to assist in meeting health care needs will improve Outcome: Progressing Flowsheets (Taken 07/02/2023699) Identification of resources available to assist in meeting health care needs will improve: Collaborate with all therapies Problem: Discharge Planning Goal: Understanding discharge needs will improve Outcome: Progressing Flowsheets (Taken 07/02/2023699) Understanding of discharge needs will improve: Discuss information regarding discharge instructions Identify discharge learning needs (meds, wound care, etc.) Arrange for needed discharge resources and transportation as appropriate Identify discharge barriers Problem: Skin/Tissue Integrity Goal: Skin integrity remains intact Outcome: Progressing Flowsheets (Taken 07/02/2023699) Skin integrity remains intact: Assess and document risk factors for pressure injury development Assess and document skin integrity Monitor for areas of redness and/or skin breakdown Goal: Incisions, wounds, or drain sites healing without S/S of infection Outcome: Progressing Flowsheets (Taken 07/02/2023699) Incision(s), Wound(s) or Drain Site(s) healing without S/S of infection: Assess and document risk factors for pressure injury development Assess and document skin integrity Problem: Musculoskeletal Goal: Return mobility to safest level of function Outcome: Progressing Flowsheets (Taken 07/02/2023699) Return mobility to safest level of function: Assess patient stability and activity tolerance for standing, transferring and ambulating with or without assistive devices Obtain PT/OT consults as needed Problem: Gastrointestinal Goal: Maintains or returns to baseline bowel function Outcome: Progressing Flowsheets (Taken 07/02/2023699) Maintains or returns to baseline bowel function: Assess bowel function, evaluate bowel sounds and signs of abdominal distention Administer IV fluids as ordered to ensure adequate hydration Encourage mobilization and activity Encourage oral fluids to ensure adequate hydration Problem: Genitourinary Goal: Absence of urinary retention Outcome: Progressing Flowsheets (Taken 07/02/2023699) Absence of urinary retention: Assess patient???s ability to void and empty bladder Assess amount and/or characteristics of urine Problem: Infection Goal: Absence of infection during hospitalization Outcome: Progressing Flowsheets (Taken 07/02/2023699) Absence of infection during hospitalization: Assess and monitor for signs and symptoms of infection Monitor lab/diagnostic results Monitor all insertion sites i.e., indwelling lines, tubes and drains and evaluate for need daily Problem: Lack of Knowledge Goal: Ability to describe self care measures that may prevent or decrease complications related to Type 2 Diabetes will improve Outcome: Progressing Flowsheets (Taken 07/02/2023699) Ability to describe self care measures that may prevent or decrease complications related to Type 2Diabetes will improve: Teach risks of complications of diabetes * ECDAGOBERTO Barillas - Eufemia Lim LCSW - 07/02/2023 12:25 PM CDT Images from the original note were not included. Patient Information: OT Eval and Treat Last 72 Hours OT Evaluation Row Name 04/10/24 0900 Chart Reviewed Yes - Session Type Evaluation - OT Received On 07/02/23 - Safe Environment Patient found sitting at edge of bed;Gait belt utilized for all out of bed mobility - Subjective Agreeable to Therapy - Subjective Comment My knee is painful to bend - Additional Pertinent History CKD, DM, GERD, iron deficiency anemia, HTN, OA - Family/Caregiver Present No - OT Functional Mobility Pt found sitting EOB. Min A sit <> stand. Min A to take 3-4 steps fromEOB > chair. Due to pain unable to continue further. - OT Self Care ADL assessment based upon task simulation, PLOF, cognitive status, B UE & LE ROM and strength, functional mobility and safety awarenes. Pt educated on AE to assist with LB due to knee pain. SUP and increased time to don pants using reaching, Min A to don L shoe due to increased foot swelling. BHATIA of materials to don ladle puller shirt. SUP to stand and complete simulated reaching activity. Educated and modeled how to use sock aid. Pt educated on where AE is available for purchase. Pt educated on shower transfer tech. Pt verbalized and demonstrated understanding. - Precautions Bed/Chair Alarm;Fall risk - Weight Bearing Restrictions Yes - RLE Weight Bearing WBAT - Type of Home House - Home Layout One level - Bathroom Shower/Tub Tub/shower unit - Bathroom Toilet Standard - Bathroom Equipment Shower chair - Home Mobility Equipment-Available Single point cane - Home Mobility Equipment-Currently Using Single point cane - Home ADL Equipment-Available Animal Nutrition Consultant - Home ADL Equipment-Currently Using -- n/a - Additional Comments Pt lives at home alone, however plans to DC [facility] home. [facility] home is 1 story home with tub/shower chair, standard toilet seat. IND with adls, iadls, ambulating with cane. 1 fallin the last 6 mo - Level of [place] Independent with ADLs;Independent functional transfers;Independent with ambulation;Needs assistance with homemaking assistance for laundry and house maintanence - Lives With Alone - Receives Help From Family - Driving Yes - ADL Assistance Independent - Instrumental ADL (IADL) Assistance Needs assistance - Fall within the last 6 months Yes - Fall within the last 6 months comment 1 - Pain Assessment 0-10 - Pain Score 6 - Pain Location Knee - Pain Orientation Right - Endurance Tolerates less than 10 min activity no significant change in vital signs - Arousal/Alertness Alert - Attention Span Appears intact -KH Memory Appears intact -KH Current communication Appears Intact - Orientation Oriented X4 (person, place, time, situation) - Following Commands Follows all commands and directions without difficulty - Safety Judgment Good awareness of safety precautions - Awareness of Errors Good awareness of errors made - Insight Fully aware of deficits - Problem Solving Able to problem solve independently - Compliance/Behavior Easy to engage - Cognitive Tests No -KH Numbness/Tingling No - Fine Motor WFL - Serial Opposition WFL - Coordination Functional - RUE Assessment WFL -KH LUE Assessment L - Safe Environment End of Therapy Session Patient left in chair;Chair alarm in place and activated;Call light within reach;Overbed table within reach - Problem List Decreased endurance;Decreased balance;Decreased functional mobility;Decreased gross motor control;Decreased ADL independence;Pain;Gait - Barriers to Discharge Current Mobility Status;Current ADL Status;Decreased caregiver support - Plan Plan of care initiated - OT Recommendation Retirement Facility - Recommend SNF due to Risk of injury at home;Unable to safely care for self in the home;Skilled therapy needed to address care for self in the home;Skilled therapy needed to address functional deficits;Skilled therapy needed for patient to return to prior level of independence - OT Frequency during current admission 5-7x/wk - Treatment/Interventions during current admission ADL/IADL retraining;Balance Training;Compensatory technique education;Endurance training;Functional activity;Functional mobility training;Functional transfer training;Parent/caregiver training and education;Strengthening;Therapeutic activity;Therapeutic exercise;Transfer training;Upper extremity motor function/functional skills - OT - Next Appointment 07/16/23 - OT - OK to Discharge No -KH OT Evaluation Complete Yes - User Benites (r) = Recorded By, (t) = Taken By, (c) = Cosigned By Initials Name Effective Dates Daija Macias OT 05/08/23 - OT Treatment No documentation. OT Notes 07/02/2023 11:36 AM Progress Notes signed by Daija Pandey OT , PT Eval and Treat Last 72 Hours PT Evaluation Row Name 07/02/23 0859 Chart Reviewed Yes - Session Type Evaluation - Safe Environment Patient found sitting at edge of bed;Session completed bedside;Gait belt utilized for all out of bed mobility - Subjective Agreeable to Therapy - Additional Pertinent History PMH CKD stage 3, HTN, anemia, T2DM, HLD, leukocytosis, lymphedema - Family/Caregiver Present No - Physical Therapy-Patient Goal return to [facility] - Precautions Bed/Chair Alarm;Fall risk - Weight Bearing Restrictions Yes - RLE Weight Bearing WBAT - Type of Home House - Home Layout One level - Home Access Stairs to enter without rails daughter's home; HR present at pt's home - Entrance Stairs-Rails None - Entrance Stairs-Number of Steps 2 4 JUANCHO at pt's home - Home Mobility Equipment-Available Single point cane - Home Mobility Equipment-Currently Using Single point cane - Level of [place] Independent with ADLs;Independent functional transfers;Independent with ambulation homemaker to assist w/laundry and cleaning - Lives With Alone - Receives Help From Family - Driving Yes - Mode of Transportation Car;Driven by self - Fall within the last 6 months Yes - Fall within the last 6 months comment 1 - Endurance Tolerates less than 10 min activity no significant change in vital signs - Pain Assessment 0-10 - Pain Score 6 - Patient's Stated Pain Goal No pain - Pain Type Acute pain - Pain Location Knee - Pain Orientation Right - Arousal/Alertness Alert - Attention Span Appears intact - Current communication Appears Intact - Orientation Oriented X4 (person, place, time, situation) - Following Commands Follows all commands and directions without difficulty - Safety Judgment Good awareness of safety precautions - Compliance/Behavior Easy to engage - Bed Mobility Comments 1 Pt sitting at edge of bed upon PT arrival - Transfer Yes - Transfer From 1 Bed;Sit - Transfer Type 1 To and from - Transfer to 1 Chair with arms;Stand - Technique 1 Sit to stand - Transfer Device 1 Wheeled walker - Transfer Level of Assistance 1 Minimum Assist - Transfer From 2 Bed - Transfer Type 2 To - Transfer to 2 Chair with arms - Technique 2 Stand and step - Transfer Device 2 Wheeled walker - Transfer Level of Assistance 2 Minimum Assist - Distance (ft) 1 3 - Surface 1 Level tile - Device 1 Wheeled walker - Assistance 1 Minimum Assist - Gait: Requires verbal cues to 1 Utilize appropriate gait sequencing - Gait Deviations 1 Antalgic;Base of support - increased;Yasmin - decreased;Heel strike - decreased;Hip/knee flexion during swing phase - decreased;Lateral trunk lean/sway;Posture - flexed;Stance time- decreased;Step length - decreased;Weight shift - decreased - RLE Assessment X - RLE Overall AROM Deficits;Due to pain - LLE Assessment WFL [facility] Safe Environment End of Therapy Session Patient left in chair;Chair alarm in place and activated;Call light within reach;Overbed table within reach - Prognosis Good - Problem List Gait deviations;Decreased strength;Decreased range of motion;Decreased endurance;Impaired balance;Decreased mobility;Pain;Edema - Barriers to Discharge Current Mobility Status;Decreased caregiver support;Home environment challenged - Barriers to Discharge Comments pt lives alone, will go to stay with daughter temporarily, however, pt states her daughter can be busy with special needs child - Plan Plan of care initiated;If this is the last note, consider this the discharge summary - PT Recommendation/Plan [facility]irement Facility - Patient at high risk for Falls - Recommend SNF due to Skilled therapy needed to address functional deficits - PT Recommendation/Plan Comments -- depending on progress, may progress to home with home health [facility] PT Frequency during current admission Twice a day;5-7x/wk;Other (comment) twice a day Mon-Fri, 1-2x/day [facility] - Treatment/Interventions during current admission Balance Training;Bed mobility;Endurance training;Functional activity;Functional transfer training;Gait training;Range of motion;Stair training;Strengthening;Therapeutic activity;Therapeutic exercise;Transfer training [facility] PT Equipment Recommended Wheeled walker - PT Evaluation Complete Yes - User Benites (r) = Recorded By, (t) = Taken By, (c) = Cosigned By Initials Name Effective Dates Amarilis Sweeney, PT 10/30/22 - PT TREATMENT (last 168 hours) PT Treatment No documentation. PT Notes 07/02/2023 11:59 AM Progress Notes signed by Amarilis Cid PT * [facility] Note - Eufemia Lim LCSW - 07/02/2023 12:25 PM CDT Images from the original note were not included. Patient Information: Patient Header Patient Information Patient Name: LINDSAY PEDERSEN Date of 1955 (68 years) Sex: Female Phone Numbers: Home: , Comprehensive Nursing Documentation Attending Provider: Kamar Gandara DO Allergies: Shrimp, Shellfish Containing Products Isolation: None Infection: None Code Status: FULL Ht: 157.5 cm (5' 2 ) Wt: 97.1 kg (214 lb) Admission Cmt: None Principal Problem: Primary osteoarthritis of right knee [M17.11] Elopement Risk Date/Time Risk/Reason for Elopement User 07/01/23 1121 No risk SDB 06/11/23 1026 No risk AMG Intake/Output 07/01/23 0700 - 07/02/23 0659 07/02/23 0700 - 07/03/23 0659 1361-4244 6973-5104 1430-4454 Total 7010-8230 9893-3124 2132-3605 Total Intake (ml) 500 -- 1860 2360 601 -- -- 601 Output (ml) 400 630 550 7540 -- -- -- -- Net (ml) 100 -125 1010 985 601 -- -- 601 Last Weight -- 97.1 kg (214 lb) -- -- -- -- -- -- Patient Lines/Drains/Airways Status Active Airway / Central venous catheter / Drain / Epidural cathether / Intraosseous line / Peripherally inserted central catheter / Peripheral intravenous line / Arterial line Name Placement date Placement time Site Days Peripheral IV 07/01/23 22 G Posterior;Right Hand 07/01/23 1125 Hand 1 Peripheral IV 07/01/23 22 G Anterior;Distal;Left Forearm;Wrist 07/01/23 1619 Forearm;Wrist less than 1 Active Wound Assessment Active Wound / Pressure injury / [place] / Negative Pressure Wound / Incision Surgical Site 07/01/23 Anterior;Right Knee Date First Assessed 07/01/23 Site Knee Time First Assessed 1333 Days less than 1 Present on Hospital Admission: No Location Orientation: Anterior;Right Assessments Row Name 07/02/23 0710 07/01/23199907/01/23 1525 07/01/23 1510 07/01/23 1440 Site Assessment ALMA ALMA ALMA ALMA ALMA Karina-wound Assessment Dry;Intact ALMA ALMA ALMA ALMA Closure Unable to assess Unable to assess Unable to assess Unable to assess Unable to assess Drainage Amount None ALMA None None None Drainage Description -- ALMA -- -- -- Drainage Odor -- -- -- No odor No odor Dressing Status Clean, dry, intact Clean, dry, intact Clean, dry, intact New;Clean, dry, intact New;Clean, dry, intact Dressing Intervention -- -- -- Other (Comment) Assessed Other (Comment) Assessed Dressing Tavo wrap Tavo wrap Tavo wrap Tavo wrap;Other (Comment) Webril, silver mepilex Tavo wrap;Other (Comment) Webril, silver mepilex Row Name 07/01/23 1411 Site Assessment Clean;Color appropriate for ethnicity;Dry Karina-wound Assessment Dry;Intact Closure Sutures;Wound glue Drainage Amount None Drainage Description -- Drainage Odor -- Dressing Status New Dressing Intervention -- Dressing -- silver mepilex, webril, tavo, polar pack Adams Fall Risk Flowsheet Row Most Recent Value Prior Fall Event (Autopopulated from EMR) None found ............filed at 07/02/2023 07 History of Falling 25 ............filed at 07/02/2023 07 Secondary Diagnosis 15 ............filed at 07/02/2023 07 Ambulatory Aids 15 ............filed at 07/02/2023 07 Intravenous Therapy/Heparin/Saline Lock 20 ............filed at 07/02/2023 07 Gait/Transferring 10 ............filed at 07/02/2023 07 Mental Status 0 ............filed at 07/02/2023 07 Adams Fall Risk Score 85 ............filed at 07/02/2023 0710 Vital Signs 06/30 0707/01 0659 07/01 0707/01 1225 Most Recent Temp (??C) 36.3 - 37.8 36.7 - 37.1 36.7 (98.1) 07/01 1203 Pulse 59 - 87 75 - 90 90 07/01 1203 Resp 14 - 25 16 - 17 16 07/01 1203 ETCO2 (mmHg) (mmHg) 36 - 43 SpO2 (%) 92 - 100 98 - 100 100 07/01 1203 BP 102/48 - 145/72 144/65 - 150/76 150/76 07/01 1203 MAP (mmHg) 65 - 88 88 - 98 98 07/01 1203 Default Flowsheet Data (most recent) Endurance Tests No documentation. Nursing Nutrition None Nursing Mobility Activity 07/01 920 Chair 07/01 899 Resting in bed 07/01 07 Resting in bed 07/01 0700 Resting in bed 07/01 06 Resting in bed 07/01 040 Resting in bed 07/01 020 Resting in bed 07/01 0000 Resting in bed 06/30 2200 Resting in bed 06/30 2000 Resting in bed 06/30 1700 Resting in bed 06/30 1600 Resting in bed;Sleeping 06/30 1539 Resting in bed Patient Assistance 07/01 920 Moderate assist, patient does 50-74% 07/01 0616 Moderate assist, patient does 50-74% 07/01 06 Moderate assist, patient does 50-74% 07/01 040 Moderate assist, patient does 50-74% 07/01 0200 Moderate assist, patient does 50-74% 07/01 0000 Maximum assist, patient does 25-49% 06/30 2200 Maximum assist, patient does 25-49% 06/30 2000 Maximum assist, patient does 25-49% Repositioned 07/01 920 Other (Comment) (Comment: sitting in the chair) 07/02 715 Turn self;Semi-fowlers 07/01 07 Supine;Turn self 07/01 06 Semi-fowlers;Supine 07/010 Semi-fowlers;Supine;Refused by patient/family 07/01 0200 Supine;Pillow support 07/01 0000 Left Side;Pillow support 06/30 2200 Semi-fowlers;Supine;Refused by patient/family 07/01 1999 Semi-fowlers;Supine Head of Bed Elevated 07/01 0921 HOB 90 07/01 0900 HOB 30 07/01 0716 HOB 30 07/01 0700 HOB 30 07/01 0600 HOB 30 07/01 0400 HOB 30 07/01 0200 HOB 30 07/01 0000 HOB 30 06/30 2200 HOB 45 06/30 2000 HOB 45 06/30 1700 HOB 30 06/30 1600 HOB 30 06/30 1539 HOB 30 06/30 1510 HOB < 20 06/30 1455 HOB < 20 06/30 1440 HOB < 20 Heels/Feet 07/01 0921 Other (Comment) (Comment: feet on floor) 07/01 0900 Heels elevated off bed 07/01 0716 Heels elevated off bed 07/01 0700 Heels elevated off bed 07/01 0600 Heels elevated off bed 07/01 0400 Heels elevated off bed 07/01 0200 Heels elevated off bed 07/01 0000 Heels elevated off bed 06/30 2200 Heels elevated off bed 06/30 2000 Heels elevated off bed 06/30 1700 Heels elevated off bed 06/30 1600 Heels elevated off bed 06/30 1539 Heels elevated off bed Range of Motion Interventions 07/01 0921 Active;All extremities 07/01 0716 Active;All extremities 07/01 0600 Active;All extremities 07/01 0400 Active;All extremities 07/01 0200 Active;All extremities 07/01 0000 Active;All extremities 06/30 2200 Active;All extremities 06/30 2000 Active;All extremities Type of Device 07/01 07 Mechanical compression 06/30 1510 Mechanical compression 06/30 1440 Mechanical compression Mechanical Compression Site 07/01 08 Bilateral 07/01 07 Bilateral 07/01 1999 Bilateral 06/30 1536 Bilateral Mechanical Compression Type 07/01 08 Foot pump 07/01 07 Foot pump 07/01 1999 Foot pump 06/30 1536 Foot pump Mechanical Compression Status 07/01 08 On 07/01 0700 On 07/01 1999 On 06/30 1536 On , Meds and Admin Active Only All Meds/Most Recent Administrations meclizine (ANTIVERT) tablet 25 mg [[id number]] Ordering Provider: Carlos Becerril, DO Status: Completed (Past End Date/Time) Ordered On: 07/01/231044 Starts/Ends: 07/01/231129 - 07/01/23 112 Ordered Dose (Remaining/Total): 25 mg (0/1) Route: oral Frequency: Once Ordered Rate/Order Duration: -- / -- Timestamps Action Dose Route Other Information 07/01/231127 Given 25 mg oral Performed by: Brianne Brice RN Scanned Package: [id number] meloxicam (MOBIC) tablet 15 mg [[id number]] Ordering Provider: Kamar Gandara DO Status: Completed (Past End Date/Time) Ordered On: 07/01/231044 Starts/Ends: 07/01/231129 - 07/01/23 112 Ordered Dose (Remaining/Total): 15 mg (0/1) Route: oral Frequency: Once Ordered Rate/Order Duration: -- / -- Timestamps Action Dose Route Other Information 07/01/231127 Given 15 mg oral Performed by: Brianne Brice RN Scanned Package: 35807-087-16, 73333-940-10 oxyCODONE ER (OxyCONTIN) extended release tablet 10 mg [[id number]] Ordering Provider: Kamar Gandara DO Status: Completed (Past End Date/Time) Ordered On: 07/01/231044 Starts/Ends: 07/01/231129 - 07/01/23 112 Ordered Dose (Remaining/Total): 10 mg (0/1) Route: oral Frequency: Once Ordered Rate/Order Duration: -- / -- Admin Instructions: Do not crush, chew, cut, dissolve, open or otherwise manipulate tablet/capsule. Timestamps Action Dose Route Other Information 07/01/231127 Given 10 mg oral Performed by: Brianne Brice RN Scanned Package: [id number] ceFAZolin (ANCEF) 2,000 mg/20 mL in sterile water (premix) 2,000 mg [[id number]] Ordering Provider: Kamar Gandara DO Status: Completed (Past End Date/Time) Ordered On: 07/01/231044 Starts/Ends: 07/01/231129 - 07/01/23 1250 Ordered Dose (Remaining/Total): 2,000 mg (0/1) Route: intravenous Frequency: Once Ordered Rate/Order Duration: 400 mL/hr / 3 Minutes Admin Instructions: Administer within 60 minutes of incision. Timestamps Action Dose Route Other Information 07/01/23 1250 Given 2,000 mg intravenous Performed by: Marisela Nance CRNA acetaminophen (TYLENOL) tablet 975 mg [[id number]] Ordering Provider: Dorota Castelan NP Status: Completed (Past End Date/Time) Ordered On: 07/01/23 1045 Starts/Ends: 07/01/23 113 - 07/01/23 1128 Ordered Dose (Remaining/Total): 975 mg (0/1) Route: oral Frequency: Once Ordered Rate/Order Duration: -- / -- Timestamps Action Dose Route Other Information 07/01/23 112 Given 975 mg oral Performed by: Brianne Brice RN Scanned Package: 6756-2192-15, 9205-4551-69, 6548-7883-78 famotidine (PEPCID) tablet 20 mg [[id number]] Ordering Provider: Dorota Castelan NP Status: Completed (Past End Date/Time) Ordered On: 07/01/23 104 Starts/Ends: 07/01/231129 - 07/01/23 112 Ordered Dose (Remaining/Total): 20 mg (0/1) Route: oral Frequency: Once Ordered Rate/Order Duration: -- / -- Timestamps Action Dose Route Other Information 07/01/23 112 Given 20 mg oral Performed by: Brianne Brice RN Scanned Package: 59501-825-54 metoclopramide (REGLAN) tablet 10 mg [[id number]] Ordering Provider: Carlos Becerril DO Status: Completed (Past End Date/Time) Ordered On: 07/01/23 1046 Starts/Ends: 07/01/231129 - 07/01/23 1128 Ordered Dose (Remaining/Total): 10 mg (0/1) Route: oral Frequency: Once Ordered Rate/Order Duration: -- / -- Timestamps Action Dose Route Other Information 07/01/23 1128 Given 10 mg oral Performed by: Brianne Brice RN Scanned Package: 66621-152-19 amLODIPine (NORVASC) tablet 10 mg [[id number]] Ordering Provider: Dahlia Mendez PA Status: Dispensed Ordered On: 07/01/231534 Start: 07/02/23 0900 Ordered Dose (Remaining/Total): 10 mg (--/--) Route: oral Frequency: Daily Ordered Rate/Order Duration: -- / -- Timestamps Action Dose Route Other Information 07/02/23 0822 Given 10 mg oral Performed by: Rut Bartlett RN Scanned Package: [id number] atorvastatin (LIPITOR) tablet 20 mg [[id number]] Ordering Provider: Dahlia Mendez PA Status: Dispensed Ordered On: 07/01/231534 Start: 07/01/23 2100 Ordered Dose (Remaining/Total): 20 mg (--/--) Route: oral Frequency: Nightly Ordered Rate/Order Duration: -- / -- Timestamps Action Dose Route Other Information 07/01/232106 Given 20 mg oral Performed by: Carlita Irby RN Scanned Package: 36670-397-60, 77530-064-64 calcitRIOL (ROCALTROL) capsule 0.25 mcg [[id number]] Ordering Provider: Dahlia Mendez PA Status: Dispensed Ordered On: 07/01/231534 Start: 07/01/23 1615 Ordered Dose (Remaining/Total): 0.25 mcg (--/--) Route: oral Frequency: Daily Ordered Rate/Order Duration: -- / -- Timestamps Action Dose Route Other Information 07/02/23 0837 Given 0.25 mcg oral Performed by: Rut Bartlett RN Scanned Package: 78602-169-42 losartan (COZAAR) tablet 100 mg [[id number]] On hold since yesterday at 1837 until manually unheld; held by Bernardino Bahena MDHold Reason: Change in Patient Status Ordering Provider: Dahlia Mendez PA Status: Verified Ordered On: 07/01/231534 Start: 07/02/23899 Ordered Dose (Remaining/Total): 100 mg (--/--) Route: oral Frequency: Daily Ordered Rate/Order Duration: -- / -- (No admins scheduled or recorded for this medication) apixaban (ELIQUIS) tablet 2.5 mg [[id number]] Ordering Provider: Dahlia Mendez PA Status: Dispensed Ordered On: 07/01/231534 Start: 07/02/23899 Ordered Dose (Remaining/Total): 2.5 mg (--/--) Route: oral Frequency: 2 times daily Ordered Rate/Order Duration: -- / -- Admin Instructions: Nurse to discontinue heparin infusion order and associated bolus at first administration of apixaban using ???order condition met??? order source Timestamps Action Dose Route Other Information 07/02/23 08 Given 2.5 mg oral Performed by: Rut Bartlett RN Scanned Package: 0444-2791-41 sodium chloride 0.9% flush 0.5-20 mL [[id number]] Ordering Provider: Dahlia Mendez PA Status: Verified Ordered On: 07/01/231534 Start: 07/01/231614 Ordered Dose (Remaining/Total): 0.5-20 mL (--/--) Route: intra-catheter Frequency: Every 8 hours scheduled Ordered Rate/Order Duration: -- / -- Admin Instructions: Flush volume based on line type and size. Timestamps Action Dose Route Other Information 07/01/232107 Given 10 mL intra-catheter Performed by: Carlita Irby RN Scanned Package: [id number] sodium chloride 0.9% flush 0.5-20 mL [[id number]] Ordering Provider: Dahlia Mendez PA Status: Verified Ordered On: 07/01/231534 Start: 07/01/231534 Ordered Dose (Remaining/Total): 0.5-20 mL (--/--) Route: intra-catheter Frequency: As needed Ordered Rate/Order Duration: -- / -- Admin Instructions: Flush volume based on line type and size. Flush before and after each use. (No admins scheduled or recorded for this medication) oxyCODONE (ROXICODONE) tablet 5 mg [[id number]] Ordering Provider: Dahlia Mendez PA Status: Dispensed Ordered On: 07/01/231534 Start: 07/01/231534 Ordered Dose (Remaining/Total): 5 mg (--/--) Route: oral Frequency: Every 4 hours PRN Ordered Rate/Order Duration: -- / -- Admin Instructions: May repeat in 1 hour if pain is uncontrolled or increasing. Max 2 doses within 1 dosing interval. Timestamps Action Dose Route Other Information 07/02/23 1033 Given 5 mg oral Performed by: Rut Bartlett RN Scanned Package: [id number] ondansetron (ZOFRAN) injection 4 mg [[id number]] Ordering Provider: Dahlia Mendez PA Status: Verified Ordered On: 07/01/231534 Start: 07/01/231534 Ordered Dose (Remaining/Total): 4 mg (--/--) Route: intravenous Frequency: Every 6 hours PRN Ordered Rate/Order Duration: -- / 2 Minutes Admin Instructions: Proceed to prochlorperazine if no relief within 30 minutes. (No admins scheduled or recorded for this medication) prochlorperazine (COMPAZINE) injection 5 mg [[id number]] Ordering Provider: Dahlia Mendez PA Status: Verified Ordered On: 07/01/231534 Start: 07/01/231534 Ordered Dose (Remaining/Total): 5 mg (--/--) Route: intravenous Frequency: Every 6 hours PRN Ordered Rate/Order Duration: -- / 2 Minutes Admin Instructions: If not relieved by ondansetron within 30 minutes. (No admins scheduled or recorded for this medication) polyethylene glycol (MIRALAX) packet 17 g [[id number]] Ordering Provider: Dahlia Mendez PA Status: Dispensed Ordered On: 07/01/231534 Start: 07/01/231614 Ordered Dose (Remaining/Total): 17 g (--/--) Route: oral Frequency: Daily Ordered Rate/Order Duration: -- / -- Admin Instructions: Hold for diarrhea. Timestamps Action Dose Route Other Information 07/02/23 0821 Given 17 g oral Performed by: Rut Bartlett RN Scanned Package: [id number] ceFAZolin (ANCEF) 2,000 mg/20 mL in sterile water (premix) 2,000 mg [[id number]] Ordering Provider: Dahlia Mendez PA Status: Completed (Past End Date/Time) Ordered On: 07/01/231534 Starts/Ends: 07/01/232099 - 07/02/23447 Ordered Dose (Remaining/Total): 2,000 mg (0/2) Route: intravenous Frequency: Every 8 hours Ordered Rate/Order Duration: 400 mL/hr / 3 Minutes Admin Instructions: Beginning 8 hours after last karina-operative dose. Note to pharmacy: Last karina-op dose administered 06/30 @ 1250 Line Med Link Info Comment Peripheral IV 07/01/23 22 G Anterior;Distal;Left Forearm;Wrist 07/01/232103 by Carlita Irby RN -- Timestamps Action Dose / Rate / Duration Route Other Information 07/02/23444 Given 2,000 mg 400 mL/hr 3 Minutes intravenous Performed by: Carlita Irby RN Scanned Package: [id number], [address]-9, 7556-8231-73 HYDROmorphone (DILAUDID) injection 0.2 mg [[id number]] Ordering Provider: Kamar Gandara DO Status: Verified Ordered On: 07/01/231534 Start: 07/01/231534 Ordered Dose (Remaining/Total): 0.2 mg (--/--) Route: intravenous Frequency: Every 4 hours PRN Ordered Rate/Order Duration: -- / 2 Minutes (No admins scheduled or recorded for this medication) morphine injection 3 mg [[id number]] Ordering Provider: Carlos Becerril DO Status: Verified Ordered On: 07/01/231534 Start: 07/01/231534 Ordered Dose (Remaining/Total): 3 mg (--/--) Route: intravenous Frequency: Every 10 min PRN Ordered Rate/Order Duration: -- / 4 Minutes Admin Instructions: Notify Anesthesiologist if total PACU dose reaches 10 mg and pain score 5/10 ormore. (No admins scheduled or recorded for this medication) dextrose (GLUTOSE) 40 % gel 15 g [[id number]] Ordering Provider: Trudy Cuello PA Status: Verified Ordered On: 07/01/231799 Start: 07/01/231758 Ordered Dose (Remaining/Total): 15 g (--/--) Route: oral Frequency: Every 15 min PRN Ordered Rate/Order Duration: -- / -- Admin Instructions: If patient is alert and able to eat/drink, give 15 gm glucose or one juice (4 fluid ounces) NOT ORANGE JUICE. After treatment for hypoglycemia, recheck BG followed by treatment every 15 minutes until the BG is greater than 100 mg/dL. Then check BG 1 hour post-treatment. If BG isless than 100 mg/dL, repeat Q15 minute BG checks and treatment. Call MD for each episode of hypoglycemia. FLAP MAKER STATES GLUTOSE-15 CONTAINS GLUCOSE 40% W/W (50% W/V) (No admins scheduled or recorded for this medication) dextrose (D10W) 10% bolus 250 mL [[id number]] Ordering Provider: Trudy Cuello PA Status: Verified Ordered On: 07/01/231799 Start: 07/01/231758 Ordered Dose (Remaining/Total): 250 mL (--/--) Route: intravenous Frequency: Every 15 min PRN Ordered Rate/Order Duration: 1,000 mL/hr / 15 Minutes Admin Instructions: After treatment for hypoglycemia, recheck BG followed by treatment every 15 minutes until the BG is greater than 100 mg/dL. Then check BG 1 hour post treatment. If BG is less [id number] mg/dL, repeat Q15 minute BG checks and treatment. Call MD for each episode of hypoglycemia. (No admins scheduled or recorded for this medication) glucagon injection 1 mg [[id number]] Ordering Provider: Trudy Cuello PA Status: Verified Ordered On: 07/01/231799 Start: 07/01/231758 Ordered Dose (Remaining/Total): 1 mg (--/--) Route: intramuscular Frequency: Every 30 min PRN Ordered Rate/Order Duration: -- / -- Admin Instructions: After Glucagon is administered, position patient on side if possible to avoid aspiration. Obtain IV access. Follow glucagon treatment with glucose treatment or IV dextrose. After treatment for hypoglycemia, recheck BG followed by treatment every 15 minutes until the BG isgreater than 100 mg/dL. Then check BG 1 hour post treatment. If BG is less than 100 mg/dL, repeat Q15 minute BG checks and treatment. Call MD for each episode of hypoglycemia. Reconstitute 1 mg vial with 1 mL SWFI. Use immediately following reconstitution. (No admins scheduled or recorded for this medication) insulin lispro (HumaLOG, ADMELOG) 100 unit/mL injection 0-5 Units [[id number]] Ordering Provider: Trudy Cuello PA Status: Verified Ordered On: 07/01/231799 Start: 07/01/23 184 Ordered Dose (Remaining/Total): 0-5 Units (--/--) Route: subcutaneous Frequency: 3 times daily with meals Ordered Rate/Order Duration: -- / -- Admin Instructions: Blood glucose mg/dL: 149 or less: No insulin 150-199: add 1 unit 200-249: add 2 units 250-299: add 3 units 300-349: add 4 units and notify physician for adjustment of insulin orders. 350-399: add 5 units and notify physician for adjustment of insulin orders. Over 400: Notify physician for adjustment of insulin orders. Do NOT hold for NPO Status (No admins scheduled or recorded for this medication) insulin lispro (HumaLOG, ADMELOG) 100 unit/mL injection 0-4 Units [[id number]] Ordering Provider: Trudy Cuello PA Status: Verified Ordered On: 07/01/231799 Start: 07/01/232099 Ordered Dose (Remaining/Total): 0-4 Units (--/--) Route: subcutaneous Frequency: Nightly Ordered Rate/Order Duration: -- / -- Admin Instructions: Blood glucose mg/dL: 199 or less: No insulin 200-249: add 1 unit 250-299: add 2 units 300-349: add 3 units and notify physician for adjustment of insulin orders. 350- 399: add 4 units and notify physician for adjustment of insulin orders. Over 400: Notify physician for adjustment of insulin orders. Do NOT hold for NPO Status (No admins scheduled or recorded for this medication) senna-docusate (PERICOLACE) 8.6-50 mg per tablet 1 tablet [[id number]] Ordering Provider: Bernardino Bahena MD Status: Dispensed Ordered On: 07/01/23 1847 Start: 07/01/23 2100 Ordered Dose (Remaining/Total): 1 tablet (--/--) Route: oral Frequency: 2 times daily Ordered Rate/Order Duration: -- / -- Timestamps Action Dose Route Other Information 07/02/23 0822 Given 1 tablet oral Performed by: Rut Bartlett RN Scanned Package: [id number] * [facility] Note - Eufemia iLm LCSW - 07/02/2023 9:20 AM CDT Images from the original note were not included. Patient Information: Patient Header Patient Information Patient Name: LINDSAY PEDERSEN Date of 1955 (68 years) Sex: Female Phone Numbers: Home: , Comprehensive Nursing Documentation Attending Provider: Kamar Gandara DO Allergies: Shrimp, Shellfish Containing Products Isolation: None Infection: None Code Status: FULL Ht: 157.5 cm (5' 2 ) Wt: 97.1 kg (214 lb) Admission Cmt: None Principal Problem: Primary osteoarthritis of right knee [M17.11] Elopement Risk Date/Time Risk/Reason for Elopement User 07/01/23 1121 No risk SDB 06/11/23 1026 No risk AMG Intake/Output 07/01/23 0700 - 07/02/23 0659 07/02/23 0700 - 07/03/23 0659 [id number] 5816-2239 0993-3063 Total 4301-4231 9076-5320 4609-9123 Total Intake (ml) 500 -- 1860 2360 601 -- -- 601 Output (ml) 400 844 090 1163 -- -- -- -- Net (ml) 100 -125 1010 985 601 -- -- 601 Last Weight -- 97.1 kg (214 lb) -- -- -- -- -- -- Patient Lines/Drains/Airways Status Active Airway / Central venous catheter / Drain / Epidural cathether / Intraosseous line / Peripherally inserted central catheter / Peripheral intravenous line / Arterial line Name Placement date Placement time Site Days Peripheral IV 07/01/23 22 G Posterior;Right Hand 07/01/23 1125 Hand less than 1 Peripheral IV 07/01/23 22 G Anterior;Distal;Left Forearm;Wrist 07/01/23 1619 Forearm;Wrist less than 1 Active Wound Assessment Active Wound / Pressure injury / [place] / Negative Pressure Wound / Incision Surgical Site 07/01/23 Anterior;Right Knee Date First Assessed 07/01/23 Site Knee Time First Assessed 1333 Days less than 1 Present on Hospital Admission: No Location Orientation: Anterior;Right Assessments Row Name 07/02/23 0710 07/01/23199907/01/23 1525 07/01/23 1510 07/01/23 1440 Site Assessment ALMA ALMA ALMA ALMA ALMA Karina-wound Assessment Dry;Intact ALMA ALMA ALMA ALMA Closure Unable to assess Unable to assess Unable to assess Unable to assess Unable to assess Drainage Amount None ALMA None None None Drainage Description -- ALMA -- -- -- Drainage Odor -- -- -- No odor No odor Dressing Status Clean, dry, intact Clean, dry, intact Clean, dry, intact New;Clean, dry, intact New;Clean, dry, intact Dressing Intervention -- -- -- Other (Comment) Assessed Other (Comment) Assessed Dressing Tavo wrap Tavo wrap Tavo wrap Tavo wrap;Other (Comment) Webril, silver mepilex Tavo wrap;Other (Comment) Webril, silver mepilex Row Name 07/01/23 1411 Site Assessment Clean;Color appropriate for ethnicity;Dry Karina-wound Assessment Dry;Intact Closure Sutures;Wound glue Drainage Amount None Drainage Description -- Drainage Odor -- Dressing Status New Dressing Intervention -- Dressing -- silver mepilex, webril, tavo, polar pack Adams Fall Risk Flowsheet Row Most Recent Value Prior Fall Event (Autopopulated from EMR) None found ............filed at 07/02/2023 0710 History of Falling 25 ............filed at 07/02/2023 07 Secondary Diagnosis 15 ............filed at 07/02/2023 0710 Ambulatory Aids 15 ............filed at 07/02/2023709 Intravenous Therapy/Heparin/Saline Lock 20 ............filed at 07/02/2023709 Gait/Transferring 10 ............filed at 07/02/2023709 Mental Status 0 ............filed at 07/02/2023709 Adams Fall Risk Score 85 ............filed at 07/02/2023709 Vital Signs 06/3059 07/01 Most Recent Temp (??C) 36.3 - 37.8 37.1 37.1 (98.8) 07/02 715 Pulse 59 - 87 75 75 07/02 715 Resp 14 - 25 17 17 07/02 715 ETCO2 (mmHg) (mmHg) 36 - 43 SpO2 (%) 92 - 100 98 98 07/02 715 BP 102/48 - 145/72 144/65 144/65 07/02 715 MAP (mmHg) 65 - 88 88 88 07/02 715 Default Flowsheet Data (most recent) Endurance Tests No documentation. Nursing Nutrition None Nursing Mobility Activity 07/02 715 Resting in bed 07/01 07 Resting in bed 07/01 06 Resting in bed 07/01 040 Resting in bed 07/01 0200 Resting in bed 07/01 0000 Resting in bed 06/30 2200 Resting in bed 06/30 2000 Resting in bed 06/30 1700 Resting in bed 06/30 1600 Resting in bed;Sleeping 06/30 1539 Resting in bed Patient Assistance 07/02 715 Moderate assist, patient does 50-74% 07/01 06 Moderate assist, patient does 50-74% 07/01 0400 Moderate assist, patient does 50-74% 07/01 0200 Moderate assist, patient does 50-74% 07/01 0000 Maximum assist, patient does 25-49% 06/30 2200 Maximum assist, patient does 25-49% 06/30 2000 Maximum assist, patient does 25-49% Repositioned 07/02 715 Turn self;Semi-fowlers 07/01 699 Supine;Turn self 07/01 599 Semi-fowlers;Supine 07/01 0400 Semi-fowlers;Supine;Refused by patient/family 07/01 199 Supine;Pillow support 07/01 Left Side;Pillow support 06/30 2199 Semi-fowlers;Supine;Refused by patient/family 07/01 1999 Semi-fowlers;Supine Head of Bed Elevated 07/01 0716 HOB 30 07/01 0700 HOB 30 07/01 0600 HOB 30 07/01 0400 HOB 30 07/01 0200 HOB 30 07/01 0000 HOB 30 06/30 2200 HOB 45 07/01 1999 HOB 45 06/30 1700 HOB 30 06/30 1600 HOB 30 06/30 1539 HOB 30 06/30 1510 HOB < 20 06/30 1455 HOB < 20 06/30 1440 HOB < 20 Heels/Feet 07/01 0716 Heels elevated off bed 07/01 0700 Heels elevated off bed 07/01 0600 Heels elevated off bed 07/01 0400 Heels elevated off bed 07/01 0200 Heels elevated off bed 07/01 0000 Heels elevated off bed 06/30 2200 Heels elevated off bed 06/30 2000 Heels elevated off bed 06/30 1700 Heels elevated off bed 06/30 1600 Heels elevated off bed 06/30 1539 Heels elevated off bed Range of Motion Interventions 07/01 0716 Active;All extremities 07/01 0600 Active;All extremities 07/01 0400 Active;All extremities 07/01 0200 Active;All extremities 07/01 0000 Active;All extremities 06/30 2200 Active;All extremities 07/01 1999 Active;All extremities Type of Device 07/01 07 Mechanical compression 06/30 1510 Mechanical compression 06/30 1440 Mechanical compression Mechanical Compression Site 07/01 07 Bilateral 07/01 1999 Bilateral 06/30 1536 Bilateral Mechanical Compression Type 07/01 07 Foot pump 07/01 1999 Foot pump 06/30 153 Foot pump Mechanical Compression Status 07/01 699 On 07/01 1999 On 06/30 1536 On , Meds and Admin Active Only All Meds/Most Recent Administrations meclizine (ANTIVERT) tablet 25 mg [[id number]] Ordering Provider: Carlos Becerril, DO Status: Completed (Past End Date/Time) Ordered On: 07/01/231044 Starts/Ends: 07/01/231129 - 07/01/23 1128 Ordered Dose (Remaining/Total): 25 mg (0/1) Route: oral Frequency: Once Ordered Rate/Order Duration: -- / -- Timestamps Action Dose Route Other Information 07/01/23 112 Given 25 mg oral Performed by: Brianne Brice RN Scanned Package: [id number] meloxicam (MOBIC) tablet 15 mg [[id number]] Ordering Provider: Kamar Gandara DO Status: Completed (Past End Date/Time) Ordered On: 07/01/231044 Starts/Ends: 07/01/231129 - 07/01/23 112 Ordered Dose (Remaining/Total): 15 mg (0/1) Route: oral Frequency: Once Ordered Rate/Order Duration: -- / -- Timestamps Action Dose Route Other Information 07/01/231127 Given 15 mg oral Performed by: Brianne Brice RN Scanned Package: 78444-329-86, 21290-603-24 oxyCODONE ER (OxyCONTIN) extended release tablet 10 mg [[id number]] Ordering Provider: Kamar Gandara DO Status: Completed (Past End Date/Time) Ordered On: 07/01/231044 Starts/Ends: 07/01/231129 - 07/01/23 112 Ordered Dose (Remaining/Total): 10 mg (0/1) Route: oral Frequency: Once Ordered Rate/Order Duration: -- / -- Admin Instructions: Do not crush, chew, cut, dissolve, open or otherwise manipulate tablet/capsule. Timestamps Action Dose Route Other Information 07/01/231127 Given 10 mg oral Performed by: Brianne Brice RN Scanned Package: [id number] ceFAZolin (ANCEF) 2,000 mg/20 mL in sterile water (premix) 2,000 mg [[id number]] Ordering Provider: Kamar Gandara DO Status: Completed (Past End Date/Time) Ordered On: 07/01/231044 Starts/Ends: 07/01/231129 - 07/01/23 1250 Ordered Dose (Remaining/Total): 2,000 mg (0/1) Route: intravenous Frequency: Once Ordered Rate/Order Duration: 400 mL/hr / 3 Minutes Admin Instructions: Administer within 60 minutes of incision. Timestamps Action Dose Route Other Information 07/01/23 1250 Given 2,000 mg intravenous Performed by: Marisela Nance CRNA acetaminophen (TYLENOL) tablet 975 mg [[id number]] Ordering Provider: Dorota Castelan NP Status: Completed (Past End Date/Time) Ordered On: 07/01/23 104 Starts/Ends: 07/01/23 1130 - 07/01/23 1128 Ordered Dose (Remaining/Total): 975 mg (0/1) Route: oral Frequency: Once Ordered Rate/Order Duration: -- / -- Timestamps Action Dose Route Other Information 07/01/23 112 Given 975 mg oral Performed by: Brianne Brice RN Scanned Package: [id number], 5492-5381-24, 8569-7874-68 famotidine (PEPCID) tablet 20 mg [[id number]] Ordering Provider: Dorota Castelan NP Status: Completed (Past End Date/Time) Ordered On: 07/01/231044 Starts/Ends: 07/01/231129 - 07/01/23 112 Ordered Dose (Remaining/Total): 20 mg (0/1) Route: oral Frequency: Once Ordered Rate/Order Duration: -- / -- Timestamps Action Dose Route Other Information 07/01/23 112 Given 20 mg oral Performed by: Brianne Brice RN Scanned Package: [id number] metoclopramide (REGLAN) tablet 10 mg [[id number]] Ordering Provider: Carlos Becerril DO Status: Completed (Past End Date/Time) Ordered On: 07/01/23 104 Starts/Ends: 07/01/23 113 - 07/01/23 1128 Ordered Dose (Remaining/Total): 10 mg (0/1) Route: oral Frequency: Once Ordered Rate/Order Duration: -- / -- Timestamps Action Dose Route Other Information 07/01/23 112 Given 10 mg oral Performed by: Brianne Brice RN Scanned Package: 95115-083-81 amLODIPine (NORVASC) tablet 10 mg [[id number]] Ordering Provider: Dahlia Mendez PA Status: Dispensed Ordered On: 07/01/231534 Start: 07/02/23 0900 Ordered Dose (Remaining/Total): 10 mg (--/--) Route: oral Frequency: Daily Ordered Rate/Order Duration: -- / -- Timestamps Action Dose Route Other Information 07/02/23 0822 Given 10 mg oral Performed by: Rut Bartlett RN Scanned Package: [id number] atorvastatin (LIPITOR) tablet 20 mg [[id number]] Ordering Provider: Dahlia Mendez PA Status: Dispensed Ordered On: 07/01/231534 Start: 07/01/23 2100 Ordered Dose (Remaining/Total): 20 mg (--/--) Route: oral Frequency: Nightly Ordered Rate/Order Duration: -- / -- Timestamps Action Dose Route Other Information 07/01/232106 Given 20 mg oral Performed by: Carlita Irby RN Scanned Package: 16934-946-19, 07089-128-71 calcitRIOL (ROCALTROL) capsule 0.25 mcg [[id number]] Ordering Provider: Dahlia Mendez PA Status: Dispensed Ordered On: 07/01/231534 Start: 07/01/23 1615 Ordered Dose (Remaining/Total): 0.25 mcg (--/--) Route: oral Frequency: Daily Ordered Rate/Order Duration: -- / -- Timestamps Action Dose Route Other Information 07/02/23 0837 Given 0.25 mcg oral Performed by: Rut Bartlett RN Scanned Package: 57263-670-21 losartan (COZAAR) tablet 100 mg [[id number]] On hold since yesterday at 1837 until manually unheld; held by Bernardino Bahena MDHold Reason: Change in Patient Status Ordering Provider: Dahlia Mendez PA Status: Verified Ordered On: 07/01/231534 Start: 07/02/23 0900 Ordered Dose (Remaining/Total): 100 mg (--/--) Route: oral Frequency: Daily Ordered Rate/Order Duration: -- / -- (No admins scheduled or recorded for this medication) apixaban (ELIQUIS) tablet 2.5 mg [[id number]] Ordering Provider: Dahlia Mendez PA Status: Dispensed Ordered On: 07/01/231534 Start: 07/02/23 09 Ordered Dose (Remaining/Total): 2.5 mg (--/--) Route: oral Frequency: 2 times daily Ordered Rate/Order Duration: -- / -- Admin Instructions: Nurse to discontinue heparin infusion order and associated bolus at first administration of apixaban using ???order condition met??? order source Timestamps Action Dose Route Other Information 07/02/23 0822 Given 2.5 mg oral Performed by: Rut Bartlett RN Scanned Package: 8938-3362-06 sodium chloride 0.9% flush 0.5-20 mL [[id number]] Ordering Provider: Dahlia Mendez PA Status: Verified Ordered On: 07/01/231534 Start: 07/01/231614 Ordered Dose (Remaining/Total): 0.5-20 mL (--/--) Route: intra-catheter Frequency: Every 8 hours scheduled Ordered Rate/Order Duration: -- / -- Admin Instructions: Flush volume based on line type and size. Timestamps Action Dose Route Other Information 07/01/232107 Given 10 mL intra-catheter Performed by: Carlita Irby RN Scanned Package: [id number] sodium chloride 0.9% flush 0.5-20 mL [[id number]] Ordering Provider: Dahlia Mendez PA Status: Verified Ordered On: 07/01/231534 Start: 07/01/231534 Ordered Dose (Remaining/Total): 0.5-20 mL (--/--) Route: intra-catheter Frequency: As needed Ordered Rate/Order Duration: -- / -- Admin Instructions: Flush volume based on line type and size. Flush before and after each use. (No admins scheduled or recorded for this medication) oxyCODONE (ROXICODONE) tablet 5 mg [[id number]] Ordering Provider: Dahlia Mendez PA Status: Dispensed Ordered On: 07/01/231534 Start: 07/01/231534 Ordered Dose (Remaining/Total): 5 mg (--/--) Route: oral Frequency: Every 4 hours PRN Ordered Rate/Order Duration: -- / -- Admin Instructions: May repeat in 1 hour if pain is uncontrolled or increasing. Max 2 doses within 1 dosing interval. Timestamps Action Dose Route Other Information 07/02/23 0608 Given 5 mg oral Performed by: Carlita Irby RN Comments: right knee Scanned Package: [id number] ondansetron (ZOFRAN) injection 4 mg [[id number]] Ordering Provider: Dahlia Mendez PA Status: Verified Ordered On: 07/01/231534 Start: 07/01/231534 Ordered Dose (Remaining/Total): 4 mg (--/--) Route: intravenous Frequency: Every 6 hours PRN Ordered Rate/Order Duration: -- / 2 Minutes Admin Instructions: Proceed to prochlorperazine if no relief within 30 minutes. (No admins scheduled or recorded for this medication) prochlorperazine (COMPAZINE) injection 5 mg [[id number]] Ordering Provider: Dahlia Mendez PA Status: Verified Ordered On: 07/01/231534 Start: 07/01/231534 Ordered Dose (Remaining/Total): 5 mg (--/--) Route: intravenous Frequency: Every 6 hours PRN Ordered Rate/Order Duration: -- / 2 Minutes Admin Instructions: If not relieved by ondansetron within 30 minutes. (No admins scheduled or recorded for this medication) polyethylene glycol (MIRALAX) packet 17 g [[id number]] Ordering Provider: Dahlia Mendez PA Status: Dispensed Ordered On: 07/01/231534 Start: 07/01/231614 Ordered Dose (Remaining/Total): 17 g (--/--) Route: oral Frequency: Daily Ordered Rate/Order Duration: -- / -- Admin Instructions: Hold for diarrhea. Timestamps Action Dose Route Other Information 07/02/23 0821 Given 17 g oral Performed by: Rut Bartlett RN Scanned Package: [id number] ceFAZolin (ANCEF) 2,000 mg/20 mL in sterile water (premix) 2,000 mg [[id number]] Ordering Provider: Dahlia Mendez PA Status: Completed (Past End Date/Time) Ordered On: 07/01/231534 Starts/Ends: 07/01/232099 - 07/02/23447 Ordered Dose (Remaining/Total): 2,000 mg (0/2) Route: intravenous Frequency: Every 8 hours Ordered Rate/Order Duration: 400 mL/hr / 3 Minutes Admin Instructions: Beginning 8 hours after last karina-operative dose. Note to pharmacy: Last karina-op dose administered 06/30 @ 1250 Line Med Link Info Comment Peripheral IV 07/01/23 22 G Anterior;Distal;Left Forearm;Wrist 07/01/232103 by Carlita Irby RN -- Timestamps Action Dose / Rate / Duration Route Other Information 07/02/23444 Given 2,000 mg 400 mL/hr 3 Minutes intravenous Performed by: Carlita Irby RN Scanned Package: [address]-3, [address]-6, 5446-6406-10 HYDROmorphone (DILAUDID) injection 0.2 mg [[id number]] Ordering Provider: Kamar Gandara DO Status: Verified Ordered On: 07/01/231534 Start: 07/01/231534 Ordered Dose (Remaining/Total): 0.2 mg (--/--) Route: intravenous Frequency: Every 4 hours PRN Ordered Rate/Order Duration: -- / 2 Minutes (No admins scheduled or recorded for this medication) morphine injection 3 mg [[id number]] Ordering Provider: Carlos Becerril DO Status: Verified Ordered On: 07/01/231534 Start: 07/01/231534 Ordered Dose (Remaining/Total): 3 mg (--/--) Route: intravenous Frequency: Every 10 min PRN Ordered Rate/Order Duration: -- / 4 Minutes Admin Instructions: Notify Anesthesiologist if total PACU dose reaches 10 mg and pain score 5/10 ormore. (No admins scheduled or recorded for this medication) dextrose (GLUTOSE) 40 % gel 15 g [[id number]] Ordering Provider: Trudy Cuello PA Status: Verified Ordered On: 07/01/231799 Start: 07/01/231758 Ordered Dose (Remaining/Total): 15 g (--/--) Route: oral Frequency: Every 15 min PRN Ordered Rate/Order Duration: -- / -- Admin Instructions: If patient is alert and able to eat/drink, give 15 gm glucose or one juice (4 fluid ounces) NOT ORANGE JUICE. After treatment for hypoglycemia, recheck BG followed by treatment every 15 minutes until the BG is greater than 100 mg/dL. Then check BG 1 hour post-treatment. If BG isless than 100 mg/dL, repeat Q15 minute BG checks and treatment. Call MD for each episode of hypoglycemia. FLAP MAKER STATES GLUTOSE-15 CONTAINS GLUCOSE 40% W/W (50% W/V) (No admins scheduled or recorded for this medication) dextrose (D10W) 10% bolus 250 mL [[id number]] Ordering Provider: Trudy Cuello PA Status: Verified Ordered On: 07/01/231799 Start: 07/01/231758 Ordered Dose (Remaining/Total): 250 mL (--/--) Route: intravenous Frequency: Every 15 min PRN Ordered Rate/Order Duration: 1,000 mL/hr / 15 Minutes Admin Instructions: After treatment for hypoglycemia, recheck BG followed by treatment every 15 minutes until the BG is greater than 100 mg/dL. Then check BG 1 hour post treatment. If BG is less etep882 mg/dL, repeat Q15 minute BG checks and treatment. Call MD for each episode of hypoglycemia. (No admins scheduled or recorded for this medication) glucagon injection 1 mg [[id number]] Ordering Provider: Trudy Cuello PA Status: Verified Ordered On: 07/01/231799 Start: 07/01/231758 Ordered Dose (Remaining/Total): 1 mg (--/--) Route: intramuscular Frequency: Every 30 min PRN Ordered Rate/Order Duration: -- / -- Admin Instructions: After Glucagon is administered, position patient on side if possible to avoid aspiration. Obtain IV access. Follow glucagon treatment with glucose treatment or IV dextrose. After treatment for hypoglycemia, recheck BG followed by treatment every 15 minutes until the BG isgreater than 100 mg/dL. Then check BG 1 hour post treatment. If BG is less than 100 mg/dL, repeat Q15 minute BG checks and treatment. Call MD for each episode of hypoglycemia. Reconstitute 1 mg vial with 1 mL SWFI. Use immediately following reconstitution. (No admins scheduled or recorded for this medication) insulin lispro (HumaLOG, ADMELOG) 100 unit/mL injection 0-5 Units [[id number]] Ordering Provider: Trudy Cuello PA Status: Verified Ordered On: 07/01/231799 Start: 07/01/23 184 Ordered Dose (Remaining/Total): 0-5 Units (--/--) Route: subcutaneous Frequency: 3 times daily with meals Ordered Rate/Order Duration: -- / -- Admin Instructions: Blood glucose mg/dL: 149 or less: No insulin 150-199: add 1 unit 200-249: add 2 units 250-299: add 3 units 300-349: add 4 units and notify physician for adjustment of insulin orders. 350-399: add 5 units and notify physician for adjustment of insulin orders. Over 400: Notify physician for adjustment of insulin orders. Do NOT hold for NPO Status (No admins scheduled or recorded for this medication) insulin lispro (HumaLOG, ADMELOG) 100 unit/mL injection 0-4 Units [[id number]] Ordering Provider: Trudy Cuello PA Status: Verified Ordered On: 07/01/231799 Start: 07/01/232099 Ordered Dose (Remaining/Total): 0-4 Units (--/--) Route: subcutaneous Frequency: Nightly Ordered Rate/Order Duration: -- / -- Admin Instructions: Blood glucose mg/dL: 199 or less: No insulin 200-249: add 1 unit 250-299: add 2 units 300-349: add 3 units and notify physician for adjustment of insulin orders. 350- 399: add 4 units and notify physician for adjustment of insulin orders. Over 400: Notify physician for adjustment of insulin orders. Do NOT hold for NPO Status (No admins scheduled or recorded for this medication) senna-docusate (PERICOLACE) 8.6-50 mg per tablet 1 tablet [[id number]] Ordering Provider: Bernardino Bahena MD Status: Dispensed Ordered On: 07/01/231846 Start: 07/01/232099 Ordered Dose (Remaining/Total): 1 tablet (--/--) Route: oral Frequency: 2 times daily Ordered Rate/Order Duration: -- / -- Timestamps Action Dose Route Other Information 07/02/23 0822 Given 1 tablet oral Performed by: Rut Bartlett RN Scanned Package: [id number] * Plan of Care - Carlita Irby RN - 07/02/2023 6:24 AM CDT Goals: Clinical Goals for the Shift: pain control, safety Summary: pt appears to be resting well on rounds, medicated as needed for c/o pain. Dressing remains dry and intact. Status unchanged, * Plan of Care - Eufemia García RN - 07/01/2023 5:22 PM CDT Goals: Clinical Goals for the Shift: pain control, safety Summary: Patient drowsy but oriented upon arrival from PACU. PRN medications given for pain. Dressing clean dry and intact. Chavarria catheter draining clear yellow urine to gravity. No signs of distressat this time. * Op Note - Kamar Gandara DO - 07/01/2023 12:35 PM CDT Operative Progress Note Attending Surgeon: Kamar Gandara DO Surgical Assistants: Managed Care Coordinator: Mariah Harrell RN Physician Crm Administrator: Dahlia Mendez PA Scrub: Yudith Ron RN; Yudith Rodriguez RN Date of Surgery: 07/01/2023 Preoperative Diagnosis: Pre-op Diagnosis * Primary osteoarthritis of right knee [M17.11] Postoperative Diagnosis: Post-op Diagnosis * Primary osteoarthritis of right knee [M17.11] Procedure: Procedure(s): RIGHT TOTAL KNEE ARTHROPLASTY Procedure Details: After informed written consent was obtained the appropriate limb was marked in preop holding. Patient was then transferred to the operating room. They were given the benefit general anesthetic. The limb was prepped and draped in the usual sterile fashion. Prior to procedure a time-out was taken confirming correct site patient and procedure. Procedure began exsanguinating the right leg and making a midline incision. Dissection was carried down through skin and subcutaneous tissue to the level ofthe joint capsule. A Medial parapatellar arthrotomy was performed. The patella was everted and retracted laterally allowing exposure to the joint. There was diffuse chondral loss and subchondral boneexposed throughout the knee. Anterior fat pad, anterior menisci ACL, and PCL were resected. The knee was brought up into flexion and opening reamer was used to access femoral canal. IM guide ruddy was inserted and distal femoral cutting block was placed. This was set at 5?? of valgus. Distal femoral cutting block was pinned in place and the distal femur cut was performed. The knee was then sized inthe AP plane. This was measured at a size 5 narrow . A 4 in 1 cutting block was pinned in place at 3?? external rotation. Anterior, posterior, and chamfer cuts were performed. Retractors were placed at all times to protect vital structures and ligaments during bone cuts. All excess bone was removed. Attention was then directed to the proximal tibia. The extramedullary guide ruddy was used to place our proximal tibia cutting block. This was positioned in line with the mechanical access referencingthe medial 3rd tibial tubercle and midbody talus. Posterior slope was set at 5??. Cut resection wasset from 10 mm from the high side. Resection was double checked with an Kwame wing. Proximal tibia cut was then performed and bone tray was removed. This was sized on the back table. This was measured at a size 4 . All excess of bone was removed. Posterior osteophytes and any loose bodies were removed. Remaining menisci were resected. Knee was brought out into full extension and was able to accommodate a 10 mm spacer block in flexion and extension. The tibial tray was then pinned in place in appropriate rotation. The trial femur was then placed and 10 mm spacer block was placed. I was able toachieve full extension and 120?? of flexion with a 10 mm spacer block. The knee felt well balanced in flexion extension as well. Attention was then directed to the patella. There was minimal chondrosis on the patella so I elected to not resurface. Marginal osteophytes were removed. The knee was taken through range of motion and the patella was tracking midline. The distal femur proximal tibia were prepared with the drill and keel punch. All trial implants were then removed. The knee was thoroughly irrigated Final implants were placed beginning with the tibial tray followed by the distal femur . The knee was then again re-trialed and a 5 mm spacer provided excellent stability and full range of motion. This was selected for final poly. The polyethylene liner was appropriately engaged and secured. Tourniquet was released. Hemostasis was obtained. Wound was thoroughly irrigated. Layered clos ure was performed with 1. Vicryl and Quill for the capsule, 2-0 Vicryl subcuticular and strata fix with Dermabond glue for skin. Sterile dressings were applied. Patient top procedure well. Transferred to PACU in stable condition. All sponge and counts correct x2. The Physician's Crm Administrator's services included preoperative and postoperative assessment and documentation, patient positioning, prep and drape, intraoperative positioning and retraction, closure and postoperative dressing and postoperative orders. This significantly facilitated the procedure, limiting operative time and the associated coexisting morbidities. No other MD assistance was available. Estimated Blood Loss: 100 mL Specimens: No specimen collected in procedure Implants: Implant Name Type Inv. Item Serial No. Hoop Maker Lot No. [id number] No. Used Action [employer] Attune Cruciate Retain Cementless Knee Right 5 Narrow Component [id number] - [id number] [employer] Attune Cruciate Retain Cementless Knee Right 5 Narrow Component [id number] [employer] [id number] Right 1 Implanted [employer] Attune Fb Tib Base Sz 4 Por [id number] - [id number] [employer] Attune Fb Tib Base Sz 4 Por [id number] [employer] [id number] Right 1 Implanted [employer] Insert Tibial Knee Fixed Rm Posterior Stabilized Attune 5mm Size 5 Polyethylene [id number] - [id number] [employer] Insert Tibial Knee Fixed Rm Posterior Stabilized Attune 5mm Size 5 Polyethylene [id number] [employer] [id number] Right 1 Implanted Complications: None Condition on Discharge from the operating room was stable Kamar Wiechert, DO Date: 07/01/2023 Time: 2:23 PM * Perioperative Nursing Note - Kwesi Dorsey RN - 06/27/2023 11:46 AM CDT Spoke to Zulay TOMLINSON for Dr. French's office, she will be signing the medical clearance. Dr. French [place] and will not be able to cosign. She also had a question about the medication instructions the patient received to not take her losartan morning of surgery. Explained it is an anesthesia order to hold for 24 hours prior to surgery. * Perioperative Nursing Note - Lianne Correia RN - 06/12/2023 5:34 PM CDT The following labs from 06/11/23 Pretesting were reviewed for 07/01/23 surgery: [x] CBC [x] CMP [] BMP [x] A1C [] PT/INR [] PTT [x] MRSA Nasal Swab [x] Type and Screen [] Urine Nicotine Screening [] Urine Microscopic [x] EKG [] CXR [] COVID Ok for surgery per Anesthesia guidelines. Approved for surgery per DAVI Raya. No further Interventions at this time. * Perioperative Nursing Note - Venessa Yang RN - 06/11/2023 10:58 AM CDT TXA Screening Screen patient for contraindications and check all that apply: [] Allergy to tranexamic acid (absolute contraindication do not order IV or topical if patient reports allergy) [] Cardiac Stents within the past 12 months [] Renal Failure (SCR > 2.5 or CrCl < 25 ml/min) CREATININE 1.1 [] History of pulmonary embolism, ischemic stroke, or DVT [] Known heredity thrombophilia disorders (e.g. Antithrombin deficiency, Protein C or S deficiency,Factor V Leiden, prothrombin fragment mutation, or hyperhomocysteinemia) [] Acquired thrombophilia disorders (e.g. anti-cardiolipin antibodies, antiphospholipid syndrome, oral or parenteral anticoagulation that will not be held prior to surgery, , or hormone replacement therapy) [x] No Contraindications * Pre-Procedure Instructions - Venessa Yang RN - 06/11/2023 9:06 AM CDT Images from the original note were not included. [id number] [place], [place] [address] Surgery Reminder Checklist: [facility] arrive [facility] Out[facility] Department for scheduled surgeryon 07/01/23 at 10:30 am. If the surgeon's office tells you to arrive at a different time after we have given you instructions, please follow their instructions. Please use Entrance A also known as [facility], then follow the signs to the RIGHT for Outpatient Surgery. DO NOT eat after midnight (this includes gum, mints, hard candy, and chewable antacids). May have clear liquids up until 10:30 AM. This includes, Water, Apple Juice, Gatorade, Black Coffeeor Sprite. (NO Dairy, Milk Products, Creamer, Red Gatorade or [place] Juice) Nothing by mouth the 2 hours prior to your procedure, NOT EVEN WATER. BLOOD SUGAR INSTRUCTIONS FOR THE MORNING OF SURGERY Check blood sugar 2 hours prior to your arrival time on the morning of surgery For your safety, a blood sugar between 100-180 is the goal for surgery Please let your nurse know when you arrive to the hospital if you needed to treat blood sugar at home If blood sugar is less than 80 or you are symptomatic Treat with 4 oz of clear liquids, examples include apple juice, Gatorade or sprite NOTHING BY MOUTH 2 HOURS PRIOR TO SURGERY START TIME If blood sugar is greater than 150 Only drink sugar free clear liquids examples water, crystal light or diet sprite ONLY TAKE THE FOLLOWING MEDICATIONS MORNING OF SURGERY: amLODIPine (NORVASC) (you may take your medications with enough water to safely swallow them) Please call us with any new prescriptions that were not discussed during the Pre-Testing Phone Assessment/Visit so that we can give you appropriate pre op instructions. DO NOT drink alcohol, smoke cigarettes/vapes/e-cigarettes during the 12 hours prior to your surgery. DO NOT use marijuana for 24 hours prior to surgery. DO NOT take illicit/illegal drugs of any kind for 7 days prior to surgery. PLEASE FOLLOW YOUR SURGEON'S GUIDELINES REGARDING ASPIRIN, IBUPROFEN, ALEVE, MULTIVITAMINS, HERBAL SUPPLEMENTS, FISH OIL AND VITAMIN E. YOU MAY BE REQUIRED TO HOLD THESE FOR 1-2 WEEKS BEFORE SURGERY. MEDICATION HOLD INSTRUCTIONS: Last dose of Ozempic is 06/23/2023. Last dose of dapagliflozin propanediol (Farxiga) is 06/26/23. Please hold morning dose of losartan (COZAAR) morning of 07/01/23. May take TYLENOL (ACETAMINOPHEN) as needed for pain. [place] your teeth morning of procedure. Use mouth wash if available. Do not swallow any liquids whencleansing your mouth. Follow Bathing instructions provided for chlorhexidine wipes evening before surgery. (Refer to Preparing the Skin handout in folder) Expect to remove wigs, dentures/partials, contact lenses, piercings, hearing aids, and prostheses before surgery. Do not wear jewelry to the hospital on the day of surgery. Bring glasses and hearing aids (with cases for both), inhalers, and CPAP/BiPAP machine day of surgery. If you will be admitted to the hospital after surgery, feel free to bring a toiletry bag. VISITOR POLICY: Patients in outpatient/surgical settings may have 2 dedicated visitors; children may be permitted as one of the 2 visitors, provided they are accompanied by a caregiver as the second visitor. Children can not be left unattended in the hospital setting. Call your surgeon if you develop a rash, fever, cold, or any other signs/symptoms of infection prior to surgery. You must call your surgeon if you have signs or symptoms of COVID or FLU. If someone in your home tests positive for COVID please call your surgeon. Your surgery may need to be postponed. IODINATED NASAL SWAB MORNING OF SURGERY: You will receive an Iodinated nasal swab one hour prior toyour surgery on the morning of surgery. This is to reduce the bacteria in the nose which reduces the risk of infection after surgery. Any questions/concerns, please call the Admission Testing Center at [phone]. Morning of surgery question/concerns, please call Outpatient Surgery at [phone]. documented in this encounter Plan of Treatment Not on file documented as of this encounter Procedures Procedure Name Priority Date/Time Associated Diagnosis Comments POCT GLUCOSE DEVICE Routine 07/03/2023 11:57 AM CDT POCT GLUCOSE DEVICE Routine 07/03/2023 7 :34 AM CDT EGFR Routine 07/03/2023 6:01 AM CDT HEMOGLOBIN AND HEMATOCRIT Routine 07/03/2023 6:01 AM CDT BASIC METABOLIC PANEL Routine 07/03/2023 6:01 AM CDT POCT GLUCOSE DEVICE Routine 07/02/2023 8 :57 PM CDT POCT GLUCOSE DEVICE Routine 07/02/2023 4 :16 PM CDT POCT GLUCOSE DEVICE Routine 07/02/2023 12:02 PM CDT POCT GLUCOSE DEVICE Routine 07/02/2023 7 :16 AM CDT EGFR Routine 07/02/2023 5:47 AM CDT HEMOGLOBIN AND HEMATOCRIT Routine 07/02/2023 5:47 AM CDT BASIC METABOLIC PANEL Routine 07/02/2023 5:47 AM CDT POCT GLUCOSE DEVICE Routine 07/01/2023 8 :34 PM CDT EGFR STAT 07/01/2023 5:18 PM CDT PROTIME-INR STAT 07/01/2023 5:18 PM CDT CBC WITHOUT DIFFERENTIAL STAT 07/01/2023 5:18 PM CDT CREATININE STAT 07/01/2023 5:18 PM CDT HEPATIC FUNCTION PANEL STAT 07/01/2023 5:18 PM CDT POCT GLUCOSE DEVICE Routine 07/01/2023 3 :49 PM CDT XR KNEE RIGHT 1 OR 2 VIEWS ED 07/01/2023 3:12 PM CDT POCT GLUCOSE DEVICE Routine 07/01/2023 2 :55 PM CDT ARTHROPLASTY TOTAL KNEE 07/01/2023 12:37 PM CDT Primary osteoarthritis of right knee Case Notes RTKA POCT GLUCOSE DEVICE Routine 07/01/2023 11:41 AM CDT ABO/RH Timed 07/01/2023 11:25 AM CDT ANTIBODY SCREEN Timed 07/01/2023 11:25 AM CDT TYPE AND SCREEN Timed 07/01/2023 11:25 AM CDT documented in this encounter Results * POCT glucose (07/03/2023 11:57 AM CDT) Glucose, POC 132 70 - 199 mg/dL Glucose comment 1 Use This Result MICHELA SMITH Blood 07/03/2023 11:5 7 AM CDT 07/03/2023 11:57 AM CDT Kamar Gandara DO LAB POCT ORDERABLES - DEVICE F inal Result MICHELA SMITH [address] [facility] Department [place] [address] * POCT glucose (07/03/2023 7:34 AM CDT) Glucose, POC 117 70 - 199 mg/dL Glucose comment 1 Use This Result MICHELA SMITH Blood 07/03/2023 7:34 AM CDT 07/03/2023 7:34 AM CDT Kamar Gandara DO LAB POCT ORDERABLES - DEVICE F inal Result MICHELA SMITH [address] [facility] Department [place] [address] * eGFR (07/03/2023 6:01 AM CDT) eGFR 66 >=60 mL/min/1. 73 m2 Comment: Interpretive Data Reference Interval Normal ?>/= [...] Current interpretive data was last reviewed 2021. Blood 07/03/2023 6:01 AM CDT 07/03/2023 6:05 AM CDT Bernardino Bahena MD LAB BLOOD ORDERABLES Final Re sult Performing Organization Address City/[facility]/ZIP Co de Phone Number [address] [place] [address] * (ABNORMAL) Hemoglobin and hematocrit (07/03/2023 6:01 AM CDT) Hgb 10.5(L) 11.9 - 15.5 g/dL Hct 32.8(L) 35.6 - 45.5 % [facility] Blood 07/03/2023 6:01 AM CDT 07/03/2023 6:05 AM CDT Dahlia LOYA LAB BLOOD ORDERABLES Final Result Performing Organization Address [facility] Co de Phone Number [address] [address] * Basic metabolic panel (07/03/2023 6:01 AM CDT) Sodium 135 135 - 145 mmol/L Potassium, pl 3.9 3.3 - 4.9 mmol/L [facility] Chloride 100 97 - 110 mmol/L [facility] CO2 26 22 - 32 mmol/L [facility] Anion gap 9 2 - 15 mmol/L [facility] BUN 12 6 - 25 mg/dL [facility] Creatinine 0.95 0.60 - 1.10 mg/dL [facility] Glucose 122 70 - 199 mg/dL [facility] Comment: Interpretive Data Fasting glucose >/= 126 mg/dl is diagnostic for diabetes. ?? Fasting is defined as no caloric intake [...] Current interpretive data was last revised 2022. Calcium 8.6 8.5 - 10.3 mg/dL [facility] Blood 07/03/2023 6:01 AM CDT 07/03/2023 6:05 AM CDT Bernardino Bahena MD LAB BLOOD ORDERABLES Final Re sult Performing Organization Address [facility] Co de Phone Number [address] [place] [address] * POCT glucose (07/02/2023 8:57 PM CDT) Glucose, POC 138 70 - 199 mg/dL Glucose comment 1 Use This Result [facility] Glucose comment 2 RN/MD Notified [facility] Blood 07/02/2023 8:57 PM CDT 07/02/2023 8:57 PM CDT Kamar [facility] POCT ORDERABLES - DEVICE F inal Result Performing Organization Address [facility] Co de Phone Number [address] [address] * POCT glucose (07/02/2023 4:16 PM CDT) Glucose, POC 116 70 - 199 mg/dL Blood 07/02/2023 4:16 PM CDT 07/02/2023 4:16 PM CDT [facility] POCT ORDERABLES - DEVICE F inal Result Performing Organization Address [facility] Co de Phone Number [address] [place] [address] * POCT glucose (07/02/2023 12:02 PM CDT) Glucose, POC 113 70 - 199 mg/dL Blood 07/02/2023 12:0 2 PM CDT 07/02/2023 12:02 PM CDT Kamar Gandara DO LAB POCT ORDERABLES - DEVICE F inal Result Performing Organization Address [facility]/ZIP Co de Phone Number MICHELA [address] [place] [address] * POCT glucose (07/02/2023 7:16 AM CDT) Glucose, POC 118 70 - 199 mg/dL Blood 07/02/2023 7:16 AM CDT 07/02/2023 7:16 AM CDT Kamar Gandara DO LAB POCT ORDERABLES - DEVICE F inal Result Performing Organization Address [facility] de Phone Number MICHELA [facility] [address] [place] [address] * (ABNORMAL) eGFR (07/02/2023 5:47 AM CDT) Pathologist [facility] eGFR 44(L) >=60 mL/min/1. 73 m2 Comment: Interpretive Data Reference Interval Normal ?>/= [...] Current interpretive data was last reviewed 2021. Blood 07/02/2023 5:47 AM CDT 07/02/2023 6:09 AM CDT Dahlia LOYA LAB BLOOD ORDERABLES Final Result Performing Organization Address [facility] Co de Phone Number [address] [place] [address] * (ABNORMAL) Hemoglobin and hematocrit (07/02/2023 5:47 AM CDT) Hgb 11.5(L) 11.9 - 15.5 g/dL Hct 36.1 35.6 - 45.5 % [facility] Blood 07/02/2023 5:47 AM CDT 07/02/2023 6:09 AM CDT Dahlia LOYA LAB BLOOD ORDERABLES Final Result Performing Organization Address [facility] de Phone Number [address] [address] * (ABNORMAL) Basic metabolic panel (07/02/2023 5:47 AM CDT) Sodium 135 135 - 145 mmol/L Potassium, pl 4.5 3.3 - 4.9 mmol/L [facility] Chloride 101 97 - 110 mmol/L [facility] CO2 24 22 - 32 mmol/L [facility] Anion gap 10 2 - 15 mmol/L [facility] BUN 18 6 - 25 mg/dL [facility] Creatinine 1.33(H) 0.60 - 1.10 mg/dL [facility] Glucose 121 70 - 199 mg/dL [facility] Comment: Interpretive Data Fasting glucose >/= 126 mg/dl is diagnostic for diabetes. ?? Fasting is defined as no caloric intake [...] Current interpretive data was last revised 2022. Calcium 9.0 8.5 - 10.3 mg/dL [facility] Blood 07/02/2023 5:47 AM CDT 07/02/2023 6:09 AM CDT Dahlia Mendez PA LAB BLOOD ORDERABLES Final Result Performing Organization Address [facility] Co de Phone Number [address] [address] * (ABNORMAL) POCT glucose (07/01/2023 8:34 PM CDT) Pathologist [facility] Glucose, POC 202(H) 70 - 199 mg/dL Glucose comment 1 Use This Result [facility] Glucose comment 2 RN/MD Notified [facility] Blood 07/01/2023 8:34 PM CDT 07/01/2023 8:34 PM CDT Kamar Gandara DO LAB POCT ORDERABLES - DEVICE F inal Result Performing Organization Address [facility] Co de Phone Number [address] [place] [address] * eGFR (07/01/2023 5:18 PM CDT) eGFR 62 >=60 mL/min/1. 73 m2 Comment: Interpretive Data Reference Interval Normal ?>/= [...] Current interpretive data was last reviewed 2021. Blood 07/01/2023 5:18 PM CDT 07/01/2023 5:25 PM CDT Dahlia LOYA LAB BLOOD ORDERABLES Final Result Performing Organization Address City/[facility] Co de Phone Number [place] [phone] [facility] [address] [place] [address] * Creatinine (07/01/2023 5:18 PM CDT) Creatinine 1.00 0.60 - 1.10 mg/dL Blood 07/01/2023 5:18 PM CDT 07/01/2023 5:25 PM CDT Narrative MICHELA - 07/01/2023 5:55 PM CDT Baseline prior to apixaban initiation. Dahlia LOYA LAB BLOOD ORDERABLES Final Result Performing Organization Address City/[facility]/ZIP Co de Phone Number [facility] [address] [place], [place] [id number] * (ABNORMAL) Hepatic function panel (07/01/2023 5:18 PM CDT) Bilirubin, total 0.2 0.1 - 1.2 mg/dL Bilirubin, direct See Comment 0.1 - 0.3 [facility] Comment:Credited; Hemolyzed Specimen Protein, pl 8.6(H) 6.5 - 8.5 g/dL [facility] Albumin 4.1 3.5 - 5.0 g/dL [facility] Alk phos 93 40 - 130 Units/L [facility] ALT 14 7 - 45 Units/L [facility] AST 23 10 - 45 Units/L [facility] Comment:Hemolyzed; result ma y be falsely elevated Blood 07/01/2023 5:18 PM CDT 07/01/2023 5:25 PM CDT Narrative [facility] - 07/01/2023 6:10 PM CDT Baseline prior to apixaban initiation. Dahlia LOYA LAB BLOOD ORDERABLES Final Result [facility] [address] [facility] Department [place] [address] * (ABNORMAL) CBC without differential (07/01/2023 5:18 PM CDT) WBC 17.5(H) 3.8 - 9.9 K/cumm Hgb 12.9 11.9 - 15.5 g/dL [facility] Hct 40.8 35.6 - 45.5 % [facility] Plt 294 150 - 400 K/cumm [facility] MPV 10.8 9.1 - 12.3 fL [facility] RBC 4.85 3.90 - 5.20 M/cumm [facility] MCV 84.1 81.3 - 96.4 fL [facility] MCH 26.6(L) 27.1 - 33.3 pg [facility] MCHC 31.6(L) 32.3 - 35.7 g/dL [facility] RDW CV 16.3(H) 11.1 - 14.9 % [facility] RDW SD 49.8(H) 35.7 - 48.1 fL [facility] NRBC abs 0.00 0.00 - 0.01 K/cumm [facility] Blood 07/01/2023 5:18 PM CDT 07/01/2023 5:25 PM CDT Narrative [facility] - 07/01/2023 5:28 PM CDT Baseline prior to apixaban initiation. Result [facility] Dahlia LOYA LAB BLOOD ORDERABLES Final Result Performing Organization Address [facility] Co de Phone Number [address] [place] [address] * Protime-INR (07/01/2023 5:18 PM CDT) PT 13.2 12.0 - 14.6 sec INR 1.0 0.9 - 1.2 [facility] Comment: Ref Range High Interpretive data Oral anticoagulant therapeutic ranges: Venous thromboembolism prophylaxis or treatment: 2.0-3.0 CARDIOLOGY Standard range: 2.0-3.0 High-intensity range: 2.5-3.5 Refer to indication-specific guidelines for appropriate target ranges for prosthetic heart valve replacement. Current interpretive data was last revised on 2019. Blood 07/01/2023 5:18 PM CDT 07/01/2023 5:25 PM CDT Narrative [facility] - 07/01/2023 5:44 PM CDT Baseline prior to apixaban initiation. Result [facility] Dahlia LOYA LAB BLOOD ORDERABLES Final Result Performing Organization Address [facility] de Phone Number [address] [address] * POCT glucose (07/01/2023 3:49 PM CDT) Glucose, POC 118 70 - 199 mg/dL Blood 07/01/2023 3:49 PM CDT 07/01/2023 3:49 PM CDT Kamar Gandara DO LAB POCT ORDERABLES - DEVICE F inal Result Performing Organization Address City/[facility] Co de Phone Number [address] [place] [address] * XR Knee Right 1 or 2 View (07/01/2023 3:12 PM CDT) Anatomical Region Laterality Modality Lower Extremities, Knee Right Computed Radiography 07/01/2023 3:18 PM CDT Narrative 07/01/2023 3:18 PM CDT EXAM DESCRIPTION: ?? XR KNEE RIGHT 1 OR 2 VIEWS REASON FOR STUDY: ?? Post-op Knee replacement ?? Post op ?? TECHNIQUE: ??Two views COMPARISON: ??05/12/2023 FINDINGS: Total knee prosthesis identified with postsurgical changes of bone soft tissue. No unexpected findings. IMPRESSION: Postop appearance right knee replacement. THIS IS AN ELECTRONICALLY VERIFIED FINAL REPORT 07/01/2023 3:18 PM - Electronically signed by ??Chris Perez M.D. RB D: ??07/01/2023 3:18 PM T: Report ID: [id number] Reading Location: ??[id number] Procedure Note Chris Perez MD - 07/01/2023 EXAM DESCRIPTION: XR KNEE RIGHT 1 OR 2 VIEWS REASON FOR STUDY: Post-op Knee replacement Post op TECHNIQUE: Two views COMPARISON: 05/12/2023 FINDINGS: Total knee prosthesis identified with postsurgical changes of bone softtissue. No unexpected findings. IMPRESSION: Postop appearance right knee replacement. THIS IS AN ELECTRONICALLY VERIFIED FINAL REPORT 07/01/2023 3:18 PM - Electronically signed by Chris Perez M.D. RB T: Report ID: [id number] Reading Location: [id number] Dahlia LOYA IMG XR PROCEDURES Final Re sult * POCT glucose (07/01/2023 2:55 PM CDT) Glucose, POC 101 70 - 199 mg/dL Glucose comment 1 Use This Result MICHELA Blood 07/01/2023 2:55 PM CDT 07/01/2023 2:55 PM CDT Kamar Gandara DO LAB POCT ORDERABLES - DEVICE F inal Result Performing Organization Address [facility] Co de Phone Number MICHELA [address] [address] * POCT glucose (07/01/2023 11:41 AM CDT) Glucose, POC 82 70 - 199 mg/dL Blood 07/01/2023 11:4 1 AM CDT 07/01/2023 11:41 AM CDT Kamar Gandara DO LAB POCT ORDERABLES - DEVICE F inal Result Performing Organization Address [facility] de Phone Number IS[address] [address] * Antibody screen (07/01/2023 11:25 AM CDT) Huang, indirect, Gel Interpretation Negative ABSC Blood 07/01/2023 11:2 5 AM CDT 07/01/2023 11:28 AM CDT Narrative MICHELA - 07/01/2023 12:07 PM CDT Has the patient had Daratumumab or Isatuximab in the past 6 months?->Unknown Kamar Gandara Chapatiz LAB BLOOD BANK TEST ORDERABLES Final Result Performing Organization Address [facility] de Phone Number [address] [address] * ABO/Rh (07/01/2023 11:25 AM CDT) Pathologist [facility] ABO/Rh A Positive Blood 07/01/2023 11:2 5 AM CDT 07/01/2023 11:28 AM CDT Narrative MICHELA - 07/01/2023 12:07 PM CDT Has the patient had Daratumumab or Isatuximab in the past 6 months?->Unknown Kamar TactoTeklaney DO LAB BLOOD BANK TEST ORDERABLES Final Result Performing Organization Address City/[facility] Co de Phone Number MICHELA [facility] [phone] [facility] Department [place] [address] documented in this encounter Visit Diagnoses Diagnosis Primary osteoarthritis of right knee- Primary Primary osteoarthritis of right knee S/P total knee arthroplasty, right Arthritis of right knee S/P total knee arthroplasty, right documented in this encounter Admitting Diagnoses Diagnosis Primary osteoarthritis of right knee Arthritis of right knee S/P total knee arthroplasty, right documented in this encounter Administered Medications Inactive Administered Medications - up to 3 most recent administrations Medication Order MAR Action Action Date Dose Rate Site acetaminophen (TYLENOL) tablet 975 mg 975 mg (rounded from 1,000 mg), oral, Once, On Fri07/01/23 at 1130, For 1 dose, Pre-Op, Indications: Pre-Emptive AnalgesiaIndications:Pre-Emptive Analgesia Given 07/01/2023 11:28 AM CDT 975 mg amLODIPine (NORVASC) tablet 10 mg 10 mg, oral, Daily, First dose on Fri07/02/23 at 0900 Given 07/03/2023 8:05 AM CDT 10 mg Given 07/02/2023 8:22 AM CDT 10 mg apixaban (ELIQUIS) tablet 2.5 mg 2.5 mg, oral, 2 times daily, First dose on Fri07/02/23 at 0900, Nurse to discontinue heparin infusion order and associated bolus at first administration of apixaban using ? order condition met? order source, Indications: VTE ProphylaxisIndications:VTE Prophylaxis Given 07/03/2023 8:05 AM CDT 2.5 m g Given 07/02/2023 8:30 PM CDT 2.5 mg Given 07/02/2023 8:22 AM CDT 2.5 mg atorvastatin (LIPITOR) tablet 20 mg 20 mg, oral, Nightly, First dose on Fri07/01/23 at 2100 Given 07/02/2023 8:30 PM CDT 20 mg Given 07/01/2023 9:07 PM CDT 20 mg calcitRIOL (ROCALTROL) capsule 0.25 mcg 0.25 mcg, oral, Daily, First dose on Fri07/01/23 at 1615 Given 07/03/2023 8:05 AM CDT 0.25 mcg Given 07/02/2023 8:37 AM CDT 0.25 mcg Given 07/01/2023 4:28 PM CDT 0.25 mcg ceFAZolin (ANCEF) 2,000 mg/20 mL in sterile water (premix) 2,000 mg 2,000 mg, intravenous, at 400 mL/hr, Administer over 3 Minutes, Every 8 hours, First dose on Fri07/01/23 at 2100, For 2 doses, Beginning 8 hours after last karina-operative dose., Indications: Prophylaxis, SurgicalIndications:Prophylaxis, Surgical Given 07/02/2023 4:45 AM CDT 2,000 mg 400 mL/hr Given 07/01/2023 9:04 PM CDT 2,000 mg 400 mL/hr dextrose (D10W) 10% bolus 250 mL 250 mL, intravenous, at 1,000 mL/hr, Administer over 15 Minutes, Every 15 min PRN, blood glucose less than 70 mg/dL and UNABLE to swallow/take PO glucose/juice., Starting on Fri07/01/23 at 1759, After treatment for hypoglycemia, recheck BG followed by treatment every 15 minutes until the BG is greater than 100 mg/dL. Then check BG 1 hour post treatment. If BG is less than 100 mg/dL, repeat Q15 minute BG checks and treatment. Call MD for each episode of hypoglycemia., Indications: hypoglycemic disorderIndications:hypoglycemic disorder dextrose (GLUTOSE) 40 % gel 15 g 15 g, oral, Every 15 min PRN, low blood sugar, blood glucose less than 70 mg/dL, Starting on Fri07/01/23 at 1759, If patient is alert and able to eat/drink, give 15 gm glucose or one juice (4 fluid ounces) NOT ORANGE JUICE. After treatment for hypoglycemia, recheck BG followed by treatment every 15 minutes until the BG is greater than 100 mg/dL. Then check BG 1 hour post-treatment. If BG is less than 100 mg/dL, repeat Q15 minute BG checks and treatment. Call MD for each episode of hypoglycemia. FLAP MAKER STATES GLUTOSE-15 CONTAINS GLUCOSE 40% W/W (50% W/V), Indications: hypoglycemic disorderIndications:hypoglycemic disorder famotidine (PEPCID) tablet 20 mg 20 mg, oral, Once, On Fri07/01/23 at 1130, For 1 dose, Pre-Op, Indications: gastroesophageal reflux diseaseIndications:gastroesophageal reflux disease Given 07/01/2023 11:28 AM CDT 20 mg HYDROmorphone (DILAUDID) injection 0.2 mg 0.2 mg, intravenous, Administer over 2 Minutes, Every 4 hours PRN, 3rd line for pain, Starting on Fri07/01/23 at 1535 Given 07/02/2023 5:38 PM CDT 0.2 mg Given 07/02/2023 12:48 PM CDT 0.2 mg Lactated Ringer's (LR) infusion 30 mL/hr, intravenous, Continuous, Starting on Fri07/01/23 at 1130, Pre-Op Rate/Dose Verify 07/01/2023 12:37 PM CDT 30 mL/hr New Bag 07/01/2023 11:28 AM CDT 30 mL/hr 30 mL/hr Lactated Ringer's (LR) infusion 100 mL/hr, intravenous, Continuous, Starting on Fri07/01/23 at 1615, Phase I & Post-op Floor, For at least 24 hours, then reduce to 40 ml/hr when tolerating PO fluids. Discontinue IV when antibiotics are complete and taking PO fluids well. New Bag 07/02/2023 4:46 AM CDT 100 mL/hr 100 mL/hr New Bag 07/01/2023 7:19 PM CDT 100 mL/hr 100 mL/hr Restarted 07/01/2023 4:18 PM CDT 100 mL/hr 100 mL/hr meclizine (ANTIVERT) tablet 25 mg 25 mg, oral, Once, On Fri07/01/23 at 1130, For 1 dose, Phase I & Post-op Floor, Indications: Motion SicknessIndications:Motion Sickness Given 07/01/2023 11:28 AM CDT 25 mg meloxicam (MOBIC) tablet 15 mg 15 mg, oral, Once, On Fri07/01/23 at 1130, For 1 dose, Pre-Op, Indications: PainIndications:Pain Given 07/01/2023 11:28 AM CDT 15 mg metoclopramide (REGLAN) tablet 10 mg 10 mg, oral, Once, On Fri07/01/23 at 1130, For 1 dose, Phase I & Post-op Floor Given 07/01/2023 11:28 AM CDT 10 mg oxyCODONE (ROXICODONE) tablet 10 mg 10 mg, oral, Every 4 hours PRN, 1st line for pain, Starting on Fri07/02/23 at 1823, Indications: PainIndications:Pain Given 07/03/2023 11:57 AM CDT 10 mg Given 07/03/2023 7:26 AM CDT 10 mg Given 07/03/2023 12:54 AM CDT 10 mg R ight Knee oxyCODONE (ROXICODONE) tablet 5 mg 5 mg, oral, Every 4 hours PRN, 1st line for pain, Starting on Fri07/01/23 at 1535, May repeat in 1 hour if pain is uncontrolled or increasing. Max 2 doses within 1 dosing interval., Indications: PainIndications:Pain Given 07/02/2023 3:19 PM CDT 5 mg Given 07/02/2023 2:23 PM CDT 5 mg Given 07/02/2023 10:33 AM CDT 5 mg oxyCODONE ER (OxyCONTIN) extended release tablet 10 mg 10 mg, oral, Once, On Fri07/01/23 at 1130, For 1 dose, Pre-Op, Do not crush, chew, cut, dissolve, open or otherwise manipulate tablet/capsule., Indications: PainIndications:Pain Given 07/01/2023 11:28 AM CDT 10 mg polyethylene glycol (MIRALAX) packet 17 g 17 g, oral, Daily, First dose on Fri07/01/23 at 1615, Hold for diarrhea., Indications: constipationIndications:constipation Given 07/03/2023 8:05 AM CDT 17 g Given 07/02/2023 8:21 AM CDT 17 g senna-docusate (PERICOLACE) 8.6-50 mg per tablet 1 tablet 1 tablet, oral, 2 times daily, First dose on Fri07/01/23 at 2100 Given 07/03/2023 8:05 AM CDT 1 tablet Given 07/02/2023 8:30 PM CDT 1 tablet Given 07/02/2023 8:22 AM CDT 1 tablet sodium chloride 0.9% flush 0.5-20 mL 0.5-20 mL, intra-catheter, Every 8 hours scheduled, First dose on Fri07/01/23 at 1615, Flush volume based on line type and size. Given 07/03/2023 5:34 AM CDT 10 mL Given 07/02/2023 8:31 PM CDT 10 mL Given 07/01/2023 9:08 PM CDT 10 mL documented in this encounter Discontinued Medications Medication Sig Discontinue Reason Start Date End Da te bisacodyL (DULCOLAX) 10 mg suppositoryIndications:c onstipation Insert 1 suppository (10 mg total) into the rectum daily Error 05/13/2022 06/11/2023 fluticasone propionate (FLONASE) 50 mcg/actuation nasal spray USE 2 SPRAY(S) IN EACH NOSTRIL 1 TO 2 TIMES DAILY Error 07/12/2022 06/11/2023 hydroCHLOROthiazide (HYDRODIURIL) 12.5 mg tablet Take 1 tablet (12.5 mg total) by mouth daily Error 12/21/2019 06/11/2023 lidocaine (LIDODERM) 5 %Indications:Primary osteoarthritis of right knee Place 1 patch on the skin daily Remove & discard patch within 12 hours or as directed by MD. Error 05/14/2023 06/11/2023 Linzess 72 mcg capsule Take 1 capsule (72 mcg total) by mouth daily Error 04/08/2023 06/11/2023 oxyCODONE (ROXICODONE) 5 mg immediate release tabletIndications:Pain Take 1 tablet (5 mg total) by mouth every 4 (four) hours as needed for pain 07/01/2023 07/03/2023 documented as of this encounter Historical Medications * This list may reflect changes made after this encounter. dapagliflozin propanediol (Farxiga) 10 mg tablet Take 1 tablet every day by oral route. added in this encounter Active and Recently Administered Medications Times are shown in CDT. Scheduled Medication Order 07/01/2023 07/02/2023 07/03/2023 acetaminophen (TYLENOL) tablet 975 mg (COMPLETED) 975 mg (rounded from 1,000 mg), oral, Once, On Fri07/01/23 at 1130, For 1 dose, Pre-Op, Indications: Pre-Emptive Analgesia 1128 (Given - Provider: Brianne D. Babs, RN) amLODIPine (NORVASC) tablet 10 mg 10 mg, oral, Daily, First dose on Fri07/02/23 at 0900 08 (Given - Provider: Rut Bartlett RN) 804 (Given - Provider: Rut Bartlett RN) apixaban (ELIQUIS) tablet 2.5 mg 2.5 mg, oral, 2 times daily, First dose on Fri07/02/23 at 0900, Nurse to discontinue heparin infusion order and associated bolus at first administration of apixaban using ? order condition met? order source, Indications: VTE Prophylaxis 821 (Given - Provider: Rut Bartlett RN)2029 (Given - Provider: Carlita Irby, CARMINE) 804 (Given - Provider: Rut Bartlett RN) atorvastatin (LIPITOR) tablet 20 mg 20 mg, oral, Nightly, First dose on Fri07/01/23 at 2100 2107 (Given - Provider: Carlita Irby, CARMINE) 2029 (Given - Provider: Carlita Irby RN) calcitRIOL (ROCALTROL) capsule 0.25 mcg 0.25 mcg, oral, Daily, First dose on Fri07/01/23 at 1615 1628 (Given - Provider: Eufemia García RN) 08 (Given - Provider: Rut Bartlett RN) 804 (Given - Provider: Rut Bartlett RN) ceFAZolin (ANCEF) 2,000 mg/20 mL in sterile water (premix) 2,000 mg (COMPLETED) 2,000 mg, intravenous, at 400 mL/hr, Administer over 3 Minutes, Once, On Fri07/01/23 at 1130, For 1 dose, Pre-Op, Administer within 60 minutes of incision., Indications: Prophylaxis, Surgical 1250 (Given - Provider: Marisela Nance, CHARLI) ceFAZolin (ANCEF) 2,000 mg/20 mL in sterile water (premix) 2,000 mg (COMPLETED) 2,000 mg, intravenous, at 400 mL/hr, Administer over 3 Minutes, Every 8 hours, First dose on Fri07/01/23 at 2100, For 2 doses, Beginning 8 hours after last karina-operative dose., Indications: Prophylaxis, Surgical 2103 (Given - Provider: Carlita Irby RN) 044 (Given - Provider: Carlita Irby RN) famotidine (PEPCID) tablet 20 mg (COMPLETED) 20 mg, oral, Once, On Fri07/01/23 at 1130, For 1 dose, Pre-Op, Indications: gastroesophageal reflux disease 1128 (Given - Provider: Brianne Brice, CARMINE) insulin lispro (HumaLOG, ADMELOG) 100 unit/mL injection 0-4 Units 0-4 Units, subcutaneous, Nightly, First dose on Fri07/01/23 at 2100, Blood glucose mg/dL: 199 or less: No insulin 200-249: add 1 unit 250-299: add 2 units 300-349: add 3 units and notify physician for adjustment of insulin orders. 350-399: add 4 units and notify physician for adjustment of insulin orders. Over 400: Notify physician for adjustment of insulin orders. Do NOT hold for NPO Status, Indications: Diabetes Mellitus 2108 (Not Given - Provider: Carlita Irby RN - Reason: Order parameters not met) 2128 (Not Given - Provider: Carlita Irby RN - Reason: Order parameters not met) insulin lispro (HumaLOG, ADMELOG) 100 unit/mL injection 0-5 Units 0-5 Units, subcutaneous, 3 times daily with meals, First dose on Fri07/01/23 at 1845, Blood glucose mg/dL: 149 or less: No insulin 150-199: add 1 unit 200-249: add 2 units 250-299: add 3 units 300-349: add 4 units and notify physician for adjustment of insulin orders. 350-399: add 5 units and notify physician for adjustment of insulin orders. Over 400: Notify physician for adjustment of insulin orders. Do NOT hold for NPO Status, Indications: Diabetes Mellitus 1804 (Not Given - Provider: Eufemia García RN - Reason: Order parameters not met) 0717 (Not Given - Provider: Eufemia García RN - Reason: Order parameters not met)1218 (Not Given - Provider: Rut Bartlett RN - Reason: Order parameters not met)1618 (Not Given - Provider: Rut Miofsky, RN - Reason: Order parameters not met) 0739 (Not Given - Provider: Rut Bartlett RN - Reason: Order parameters not met)1158 (Not Given - Provider: Rut Bartlett RN - Reason: Order parameters not met) losartan (COZAAR) tablet 100 mg 100 mg, oral, Daily, First dose on Fri07/02/23 at 0900, On hold since Fri07/01/2023 at 1837 until manually unheld 1836 (Held by Provider - Provider: Bernardino Bahena MD - Reason: Change in Patient Status) 0900 (Hold - Provider: Rut Bartlett RN - Reason: See Provider Order) 09 (Hold - Provider: Rut Bartlett RN - Reason: See Provider Order)183 (Unheld by Provider - Provider: Automatic Discharge Provider) meclizine (ANTIVERT) tablet 25 mg (COMPLETED) 25 mg, oral, Once, On Fri07/01/23 at 1130, For 1 dose, Phase I & Post-op Floor, Indications: Motion Sickness 1128 (Given - Provider: Brianne Brice, CARMINE) meloxicam (MOBIC) tablet 15 mg (COMPLETED) 15 mg, oral, Once, On Fri07/01/23 at 1130, For 1 dose, Pre-Op, Indications: Pain 1128 (Given - Provider: Brianne Brice, CARMINE) metoclopramide (REGLAN) tablet 10 mg (COMPLETED) 10 mg, oral, Once, On Fri07/01/23 at 1130, For 1 dose, Phase I & Post-op Floor 1128 (Given - Provider: Brianne Brice, CARMINE) oxyCODONE ER (OxyCONTIN) extended release tablet 10 mg (COMPLETED) 10 mg, oral, Once, On Fri07/01/23 at 1130, For 1 dose, Pre-Op, Do not crush, chew, cut, dissolve, open or otherwise manipulate tablet/capsule., Indications: Pain 1128 (Given - Provider: Brianne Brice, CARMINE) polyethylene glycol (MIRALAX) packet 17 g 17 g, oral, Daily, First dose on Fri07/01/23 at 1615, Hold for diarrhea., Indications: constipation 1620 (Not Given - Provider: Eufemia García RN - Reason: Patient/family refused) 0821 (Given - Provider: Rut Bartlett, CARMINE) 0805 (Given - Provider: Rut Bartlett RN) senna-docusate (PERICOLACE) 8.6-50 mg per tablet 1 tablet 1 tablet, oral, 2 times daily, First dose on Fri07/01/23 at 2100 2106 (Given - Provider: Carlita Irby RN) 0822 (Given - Provider: Rut Bartlett RN)2030 (Given - Provider: Carlita Irby RN) 0805 (Given - Provider: Rut Bartlett RN) sodium chloride 0.9% flush 0.5-20 mL 0.5-20 mL, intra-catheter, Every 8 hours scheduled, First dose on Fri07/01/23 at 1615, Flush volume based on line type and size. 1621 (Not Given - Provider: Eufemia García RN - Reason: IV Infusing)2108 (Given - Provider: Carlita Irby RN) 0447 (Not Given - Provider: Carlita Irby RN - Reason: IV Infusing)1424 (Canceled Entry - Provider: Rut Bartlett RN)2031 (Given - Provider: Carlita Irby RN) 0534 (Given - Provider: Carlita Irby RN)1400 (Due) Continuous Medication Order 07/01/2023 07/02/2023 07/03/2023 Lactated Ringer's (LR) infusion (CANCELED) 30 mL/hr, intravenous, Continuous, Starting on Fri07/01/23 at 1130, Pre-Op 1128 (New Bag - Provider: Brianne Brice RN)1237 (Rate/Dose Verify - Provider: Marisela Nance CRNA)1406 (Anesthesia Volume Adjustment - Provider: Marisela Nance CRNA)1621 (Stopped - Provider: Eufemia García RN) Lactated Ringer's (LR) infusion (CANCELED) 100 mL/hr, intravenous, Continuous, Starting on Fri07/01/23 at 1615, Phase I & Post-op Floor, For at least 24 hours, then reduce to 40 ml/hr when tolerating PO fluids. Discontinue IV when antibiotics are complete and taking PO fluids well. 1618 (Restarted - Provider: Eufemia García, RN)191 (New Bag - Provider: Carlita Irby, RN) 0446 (New Bag - Provider: Carlita Irby, RN)0829 (Stopped - Provider: Rut Bartlett RN) PRN Medication Order 07/01/2023 07/02/2023 07/03/2023 dextrose (D10W) 10% bolus 250 mL(Linked Group 1) 250 mL, intravenous, at 1,000 mL/hr, Administer over 15 Minutes, Every 15 min PRN, blood glucose less than 70 mg/dL and UNABLE to swallow/take PO glucose/juice., Starting on Fri07/01/23 at 1759, After treatment for hypoglycemia, recheck BG followed by treatment every 15 minutes until the BG is greater than 100 mg/dL. Then check BG 1 hour post treatment. If BG is less than 100 mg/dL, repeat Q15 minute BG checks and treatment. Call MD for each episode of hypoglycemia., Indications: hypoglycemic disorder dextrose (GLUTOSE) 40 % gel 15 g(Linked Group 1) 15 g, oral, Every 15 min PRN, low blood sugar, blood glucose less than 70 mg/dL, Starting on Fri07/01/23 at 1759, If patient is alert and able to eat/drink, give 15 gm glucose or one juice (4 fluid ounces) NOT ORANGE JUICE. After treatment for hypoglycemia, recheck BG followed by treatment every 15 minutes until the BG is greater than 100 mg/dL. Then check BG 1 hour post-treatment. If BG is less than 100 mg/dL, repeat Q15 minute BG checks and treatment. Call MD for each episode of hypoglycemia. FLAP MAKER STATES GLUTOSE-15 CONTAINS GLUCOSE 40% W/W (50% W/V), Indications: hypoglycemic disorder glucagon injection 1 mg 1 mg, intramuscular, Every 30 min PRN, low blood sugar, blood glucose less than 70 mg/dL AND no IV access AND unable to take PO glucose/juice., Starting on Fri07/01/23 at 1759, After Glucagon is administered, position patient on side if possible to avoid aspiration. Obtain IV access. Follow glucagon treatment with glucose treatment or IV dextrose. After treatment for hypoglycemia, recheck BG followed by treatment every 15 minutes until the BG is greater than 100 mg/dL. Then check BG 1 hour post treatment. If BG is less than 100 mg/dL, repeat Q15 minute BG checks and treatment. Call MD for each episode of hypoglycemia. Reconstitute 1 mg vial with 1 mL SWFI. Use immediately following reconstitution. HYDROmorphone (DILAUDID) injection 0.2 mg 0.2 mg, intravenous, Administer over 2 Minutes, Every 4 hours PRN, 3rd line for pain, Starting on Fri07/01/23 at 1535 1248 (Given - Provider: Rut Bartlett RN)1738 (Given - Provider: Rut Bartlett RN) morphine injection 3 mg 3 mg, intravenous, Administer over 4 Minutes, Every 10 min PRN, 1st line for pain, Starting on Fri07/01/23 at 1535, Phase I, Notify Anesthesiologist if total PACU dose reaches 10 mg and pain score 5/10 or more., Indications: Pain ondansetron (ZOFRAN) injection 4 mg 4 mg, intravenous, Administer over 2 Minutes, Every 6 hours PRN, nausea, vomiting, Starting on Fri07/01/23 at 1535, Proceed to prochlorperazine if no relief within 30 minutes. oxyCODONE (ROXICODONE) tablet 10 mg 10 mg, oral, Every 4 hours PRN, 1st line for pain, Starting on Fri07/02/23 at 1823, Indications: Pain 1842 (Given - Provider: Rut Bartlett RN) 0054 (Given - Provider: Carlita Irby RN)0726 (Given - Provider: Rut Bartlett RN)1157 (Given - Provider: Rut Bartlett RN) oxyCODONE (ROXICODONE) tablet 5 mg (CANCELED) 5 mg, oral, Every 4 hours PRN, 1st line for pain, Starting on Fri07/01/23 at 1535, May repeat in 1 hour if pain is uncontrolled or increasing. Max 2 doses within 1 dosing interval., Indications: Pain 1613 (Given - Provider: Eufemia García RN)1741 (Given - Provider: Eufemia García RN)2105 (Given - Provider: Carlita Irby RN) 0445 (Given - Provider: Carlita Irby RN - Comment: right knee)0608 (Given - Provider: Carlita Irby RN - Comment: right knee)0946 (Given - Provider: Rut Bartlett RN)1033 (Given - Provider: Rut Bartlett RN)1423 (Given - Provider: Rut Bartlett RN)1519 (Given - Provider: Rut Bartlett RN) prochlorperazine (COMPAZINE) injection 5 mg 5 mg, intravenous, Administer over 2 Minutes, Every 6 hours PRN, nausea, vomiting, Starting on Fri07/01/23 at 1535, If not relieved by ondansetron within 30 minutes. sodium chloride 0.9% flush 0.5-20 mL 0.5-20 mL, intra-catheter, As needed, line care, Starting on Fri07/01/23 at 1535, Flush volume based on line type and size. Flush before and after each use. Linked Groups Order Group 1: dextrose (GLUTOSE) 40 % gel 15 gJump to med 15 g, oral, Every 15 min PRN, low blood sugar, blood glucose less than 70 mg/dL, Starting on Fri07/01/23 at 1759, If patient is alert and able to eat/drink, give 15 gm glucose or one juice (4 fluid ounces) NOT ORANGE JUICE. After treatment for hypoglycemia, recheck BG followed by treatment every 15 minutes until the BG is greater than 100 mg/dL. Then check BG 1 hour post-treatment. If BG is less than 100 mg/dL, repeat Q15 minute BG checks and treatment. Call MD for each episode of hypoglycemia. FLAP MAKER STATES GLUTOSE-15 CONTAINS GLUCOSE 40% W/W (50% W/V), Indications: hypoglycemic disorder Or dextrose (D10W) 10% bolus 250 mLJump to med 250 mL, intravenous, at 1,000 mL/hr, Administer over 15 Minutes, Every 15 min PRN, blood glucose less than 70 mg/dL and UNABLE to swallow/take PO glucose/juice., Starting on Fri07/01/23 at 1759, After treatment for hypoglycemia, recheck BG followed by treatment every 15 minutes until the BG is greater than 100 mg/dL. Then check BG 1 hour post treatment. If BG is less than 100 mg/dL, repeat Q15 minute BG checks and treatment. Call MD for each episode of hypoglycemia., Indications: hypoglycemic disorder documented in this encounter Orders Medications Ordered That Nir ht Not Have Been Administered Count Last Ordered Date First Ordered Date ceFAZolin (ANCEF) 2,000 mg/2 0 mL in sterile water (premix) 2,000 mg 1 07/01/2023 dextrose (D10W) 10% bolus 250 mL 1 07/01/19 dextrose (GLUTOSE) 40 % gel 15 g 1 07/01/19 docusate sodium (COLACE) capsule 100 mg 1 0 07/01/2023 fentaNYL (SUBLIMAZE) preserv ative free injection 50 mcg 1 07/01/2023 glucagon injection 1 mg 1 07/01/2023 hydrALAZINE (APRESOLINE) injection 5 mg 1 0 07/01/2023 insulin lispro (HumaLOG, ADM ELOG) 100 unit/mL injection 0-4 Units 1 07/01/2023 insulin lispro (HumaLOG, ADM ELOG) 100 unit/mL injection 0-5 Units 1 07/01/2023 labetaloL (NORMODYNE,TRANDAT E) injection 5 mg 1 07/01/2023 lidocaine (XYLOCAINE) 10 mg/ mL (1 %) injection 2-10 mg 1 07/01/2023 losartan (COZAAR) tablet 100 mg 1 meperidine (DEMEROL) preserv ative free injection 12.5 mg 1 07/01/2023 metoclopramide (REGLAN) 5 mg /mL injection 10 mg 1 07/01/2023 morphine injection 3 mg 1 07/01/2023 naloxone (NARCAN) 0.4 mg/mL injection 0.04-0.4 mg 07/01/2023 ondansetron (ZOFRAN) injection 4 mg 2 06/30 prochlorperazine (COMPAZINE) injection 5 mg 1 07/01/2023 sodium chloride 0.9% flush 0.5-20 mL 11/2023 tranexamic acid (CYKLOKAPRON ) 1,000 mg/10 mL (100 mg/mL) solution 2,000 mg 1 07/01/2023 Lab Orders Without Results Count Last Ordered D ate First Ordered Date POCT GLUCOSE DEVICE 15 07/03/2023 07/01/19 24 General Supply Count Last Ordered Date First Or dered Date WALKER 1 07/01/2023 Diet Count Last Ordered Date First Orde red Date ADULT DISCHARGE DIET 1 07/01/2023 Nursing Count Last Ordered Date First Orde red Date BLADDER SCAN 1 07/01/2023 DISCHARGE ACTIVITY 1 07/01/2023 DISCHARGE CALL PROVIDER 3 07/01/2023 DISCHARGE DRESSING 1 07/01/2023 DISCHARGE INSTRUCTIONS 1 07/01/2023 FOLLOW UP WITH ESTABLISHED PROVIDER 1 06/30 Consult Count Last Ordered Date First Orde red Date IP CONSULT TO HOSPITALIST 1 07/01/2023 Admission Count Last Ordered Date First Orde red Date ADMIT TO INPATIENT 1 07/02/2023 INITIATE OBSERVATION SERVICES 2 07/01/2023 Discharge Count Last Ordered Date First Orde red Date DISCHARGE PATIENT 1 07/03/2023 documented in this encounter Care Teams [employer] Maintainer Relationship Specialty Start Date End Date Fidencio French MD [id number] [place] [address] PCP - General Internal Medicine 06/12/22 Dahlia Mendez PA [address] [facility] [address] [address] Orthopedic Surgery 07/01/23 documented as of this encounter
--- OUTSIDE RECORDS SUMMARY | 2024-03-23 01:49 | XMS_ITS | Encounter Summary ---
Author Organization [facility] Address [address] [place] [address] Phone Care Team Providers Care Large Animal Veterinarian Name Role Phone Fidencio French MD Primary Care Provider [phone] Dahlia Mendez Unavailable [phone] Reason for Referral * Diagnostic Imaging (Routine) - Authorized Specialty Diagnoses / Procedures Referred By Contac t Referred To Contact Diagnoses Encounter for screening mammogram for malignant neoplasm of breast Procedures Screening Mammogram Bilateral W Prem Sondra Mir NP [address] [facility] [phone] [place] [address] Phone: tel: fax: [facility] [address] [place] [address] Referral ID Status Reason Start Date Expiration Date V isits Requested Visits Authorized [id number] Authorized 07/30/2023 08/28/2024 1 1 Encounter Details Date Type Department Care Team (Late st Contact Info) Description 07/30/2023 Orders Only [facility] [address] [facility] 5th [place] [address] [place] [phone] Sondra Mir NP [address] [facility] [id number] [place] [address] Encounter for screening mammogram for malignant neoplasm of breast (Primary Dx) Social History Tobacco Use Types Packs/Day Years Used Date Smoking Tobacco: Never Passive Smoke Exposure: Past Smokeless Tobacco: Never Alcohol Use Standard Drinks/Week Comments No 0 (1 standard drink = 0.6 oz pur e alcohol) [facility] Utilities Answer Date Recorded In the past 12 months has e [employer], gas, oil, or water [employer] threatened to shut off services in your [...] often do you attend chur ch or restorationism services? More than 4 times per year 07/02/2023 Do you belong to any clubs o r organizations such as adventism groups, unions, fraternal or athletic groups, or [...] place to sleep or slept in a retirement (including now)? No 07/02/2023 Personal Safety Answer Date Recorded Have you ever been in or are you currently in a harmful physical or emotional relationship or is someone making you feel afraid or unsafe? 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 Gender Identity Not on file Sexual Orientation Not on file documented as of this encounter Plan of Treatment Scheduled Orders Name Type Priority Associated Diagnoses Orde r Schedule Screening Mammogram Bilateral W Prem Imaging Schedule Routine, Read Routine (OP Routine) Encounter for screening mammogram for malignant neoplasm of breast Expected: 08/12/2023, Expires: 01/29/2025 documented as of this encounter Visit Diagnoses Diagnosis Encounter for screening mammogram for malignant neoplasm of breast- Primary documented in this encounter Care Teams Large Animal Veterinarian Relationship Specialty Start Date End Date Fidencio French MD [address] [place] [address] PCP - General Internal Medicine 06/12/22 Dahlia Mendez PA [address] [facility] [address] DAWKINS [address] [place] [address] Orthopedic Surgery 07/01/23 documented as of this encounter
--- OUTSIDE RECORDS SUMMARY | 2024-03-23 01:49 | XMS_ITS | Encounter Summary ---
Author Organization [facility] Healthcare Address [address] [place] [address] Care Team Providers Care Steaming Cabinet Tender Name Role Phone Fidencio French MD Primary Care Provider [phone] Dahlia Mendez Unavailable [phone] Reason for Referral * Diagnostic Imaging (Routine) - Closed Specialty Diagnoses / Procedures Referred By Contac t Referred To Contact Diagnoses S/P total knee arthroplasty, right Procedures XR Knee Right 3 Views Kamar Gandara DO [address] [place] [address] DR DAWKINS [address] [place] [address] Phone: tel: fax: [address] [phone] Referral ID Status Reason Start Date Expiration Date Visits Re quested Visits Authorized [id number] Closed 08/12/2023 09/10/2024 1 1 Reason for Visit * Reason Comments Pain 07/01/23 RTKA Post-op 07/01/23 RTKA Encounter Details Date Type Department Care Team ([facility] Contact Info) Description 08/13/2023 10:15 AM CDT Office Visit [facility] Medical Group Orthopedics and Sports Medicine [address] [facility] [address] [place] [phone] Kamar Gandara DO [address] [place] [address] DR DAWKINS [address] [place] [address] S/P total knee arthroplasty, right (Primary Dx) Social History Tobacco Use Types Packs/Day Years Used Date Smoking Tobacco: Never Passive Smoke Exposure: Past Smokeless Tobacco: Never Alcohol Use Standard Drinks/Week Comments No 0 (1 standard drink = 0.6 oz pur e alcohol) [facility] Utilities Answer Date Recorded In the [...] often do you attend chur ch or presybeterian services? 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 FOLLOW UP PATIENT VISIT Subjective CHIEF COMPLAINT She had concerns including Pain and Post-op of the Right Knee (07/01/23 RTKA). HISTORY OF PRESENT ILLNESS Patient returns for re-evaluation of her right knee. Six weeks out of right total knee arthroplasty. Overdue doing well with no acute complaints. Denies any fevers chills shortness of breath or chestpain Objective PHYSICAL EXAM There were no vitals taken for this visit. Exam of the right knee shows anterior incision healing well. No signs of infection. Extension near full flexion to 120??. Mild swelling. Calf soft nontender REVIEW OF X-RAYS/STUDIES/LABS X-rays of the right knee show Press-Fit total knee arthroplasty in place with no signs of failure complication Diagnoses and all orders for this visit: S/P total knee arthroplasty, right (Primary) - XR Knee Right 3 Views; Future Plan: Clinically patient is doing well. She will continue advancing activity as tolerated. Continue PT for range motion strengthening. Follow up with me in 3 months. Kamar Gandara DO documented in this encounter Plan of Treatment Not on file documented as of this encounter Results * XR Knee Right 3 Views (08/13/2023 10:14 AM CDT) Anatomical Region Laterality Modality Lower Extremities, Knee Right Computed Radiography 08/14/2023 10:0 7 AM CDT Narrative 08/14/2023 10:09 AM CDT EXAM DESCRIPTION: XR KNEE RIGHT 3 VIEWS REASON FOR STUDY: pain ?? Mild general knee pain since total knee replacement 07-01-23 ? FINDINGS: Three views submitted with comparison 07/16/2023. 2 component right knee arthroplasty is in near anatomic alignment. ??Moderate to large knee effusion is present. ??There is soft tissue swelling about the knee. IMPRESSION: 2 component right knee arthroplasty in near anatomic alignment. Moderate to large right knee effusion with soft tissue swelling. THIS IS AN ELECTRONICALLY VERIFIED FINAL REPORT 08/14/2023 10:09 AM - Electronically signed by ??Kwesi Kessler M.D. D: ??08/14/2023 10:09 AM T: Report ID: [id number] Reading Location: ??[id number] Procedure Note Kwesi Kessler MD - 08/14/2023 EXAM DESCRIPTION: XR KNEE RIGHT 3 VIEWS REASON FOR STUDY: pain Mild general knee pain since total knee replacement 07-01-23 FINDINGS: Three views submitted with comparison 07/16/2023. 2 component right knee arthroplasty is in near anatomic alignment.Moderate to large knee effusion is present. There is soft tissue swelling aboutthe knee. IMPRESSION: 2 component right knee arthroplasty in near anatomic alignment. Moderate to large right knee effusion with soft tissue swelling. THIS IS AN ELECTRONICALLY VERIFIED FINAL REPORT 08/14/2023 10:09 AM - Electronically signed by Kwesi Kessler M.D. T: Report ID: [id number] Reading Location: [id number] us Kamar Gandara DO IMG XR PROCEDURES Final Result documented in this encounter Visit Diagnoses Diagnosis S/P total knee arthroplasty, right- Primary S/P total knee arthroplasty, right documented in this encounter Discontinued Medications Medication Sig Discontinue Reason Start Date End Da te Ozempic 0.25 mg or 0.5 mg (2 mg/3 mL) pen injector injection Inject 0.5 mg under the skin once a week Injects on Sundays. 05/03/2023 08/13/2023 documented as of this encounter Historical Medications * This list may reflect changes made after this encounter. metroNIDAZOLE (METROGEL) 0.75 % (37.5mg/5 gram) vaginal gel INSERT 1 APPLICATORFUL VAGINALLY AT BEDTIME FOR 5 NIGHTS lidocaine (LIDODERM) 5 % USE 1 PATCH EXTERNALLY ONCE DAILY REMOVE AND DISCARD PATCH WITHIN 12 HOURS OR DIRECTED BY DOCTOR 06/30/2023 Trulicity 1.5 mg/0.5 mL pen injector INJECT CONTENTS OF ONE SYRINGE EVERY WEEK 07/28/2023 added in this encounter Care Teams Steaming Cabinet Tender Relationship Specialty Start Date End Date Fidencio French MD [address] [place] [address] PCP - General Internal Medicine 06/12/22 Dahlia Mendez PA [address] [facility] [address] DAWKINS [address] [place] [address] Orthopedic Surgery 07/01/23 documented as of this encounter
--- OUTSIDE RECORDS SUMMARY | 2024-03-23 01:49 | XMS_ITS | Encounter Summary ---
Author Organization [facility] Healthcare Address [address] [place] [address] Care Team Providers Care Senior Integration Developer Name Role Phone Fidencio French MD Primary Care Provider [phone] Dahlia Mendez Unavailable [phone] Reason for Referral * Diagnostic Imaging (Routine) - Closed Specialty Diagnoses / Procedures Referred By Kirt carvalho Referred To Contact Diagnoses S/P total knee arthroplasty, right Procedures XR Knee Right 3 Views Kamar Gandara DO [facility] [facility] [address] DAWKINS [address] [place] [address] Phone: tel: fax: [address] [phone] Referral ID Status Reason Start Date Expiration Date Visits Re quested Visits Authorized [id number] Closed 11/11/2023 12/10/2024 1 1 Reason for Visit * Diagnostic Imaging (Routine) - Closed Specialty Diagnoses / Procedures Referred By Kirt carvalho Referred To Contact Diagnoses S/P total knee arthroplasty, right Procedures XR Knee Right 3 Views Kamar Gandara DO [facility] [address] DAWKINS [address] [place] [address] Phone: tel: fax: [address] [phone] Referral ID Status Reason Start Date Expiration Date Visits Re quested Visits Authorized [id number] Closed 11/11/2023 12/10/2024 1 1 Encounter Details Date Type Department Care Team (Latest Contact Info) Description 11/13/2023 9:58 AM CDT - 11/13/2023 11:59 PM CDT Hospital Encounter [facility] [address] [place] [address] S/P total knee arthroplasty, right Discharge Disposition: Discharge to home or self care Social History Tobacco Use Types Packs/Day Years Used Date Smoking Tobacco: Never Passive Smoke Exposure: Past Smokeless Tobacco: Never Alcohol Use Standard Drinks/Week Comments No 0 (1 standard drink = 0.6 oz pur e alcohol) [facility] Utilities Answer Date Recorded In the past [...] often do you attend chur ch or anglican services? More than 4 times per year 07/02/2023 Do you belong to any clubs o r organizations such as gnosticism groups, unions, fraternal or athletic groups, or [...] place to sleep or slept in a custodial (including now)? No 07/02/2023 Personal Safety Answer Date Recorded Have you ever been in or are you currently in a harmful physical or emotional relationship or is someone making you feel afraid or unsafe? 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 Gender Identity Not on file Sexual Orientation Not on file documented as of this encounter Medications at Time of Discharge Accu-Chek Guide Me Glucose Mtr misc 1 Insert daily 03/24/2023 Accu-Chek Guide test strips strip USE ONE STRIP TO CHECK GLUCOSE DAILY 04/29/2022 Accu-Chek Softclix Lancets lancets USE TO CHECK GLUCOSE ONCE DAILY 04/29/2022 amLODIPine (NORVASC) 10 mg tablet Take 1 tablet (10 mg total) by mouth daily amoxicillin 500 mg capsule TAKE FOUR CAPSULES BY MOUTH ONE HOUR BEFORE APPOINTMENT 10/23/2023 apixaban (ELIQUIS) 2.5 mg tabletIndication s:VTE Prophylaxis Following Ortho Surgery Take 1 tablet [...] mg total) by mouth daily 3 02/23/2018 metroNIDAZOLE (METROGEL) 0.75 % (37.5mg/5 gram) vaginal gel INSERT 1 APPLICATORFUL VAGINALLY AT BEDTIME FOR 5 NIGHTS oxyCODONE (ROXICODONE) 10 mg tabletIndication s:Pain Take 1 tablet (10 mg total) by mouth every 4 (four) hours 30 tablet 08/06/2023 oxyCODONE (ROXICODONE) 5 mg immediate release tabletIndication s:Pain Take 1 tablet (5 mg total) by mouth every 4 (four) hours as needed for pain 30 tablet 08/07/2023 penciclovir (DENAVIR) 1 % cream Apply 1 application 6 times a day by topical route for 5 days. 10/24/2023 polyethylene glycol 236-22.74-6.74 -5.86 gram solution Take 240 mL by mouth once 04/10/2023 Trulicity 1.5 mg/0.5 mL pen injector INJECT CONTENTS OF ONE SYRINGE EVERY WEEK 07/28/2023 valACYclovir (VALTREX) 500 mg tablet Take 1 tablet (500 mg total) by mouth 10/24/2023 documented as of this encounter Discharge Disposition Disposition Code Departure Means Destination Discharge to home or self care documented in this encounter Plan of Treatment Not on file documented as of this encounter Procedures Procedure Name Priority Date/Time Associated Diagnosis Comments XR KNEE RIGHT 3 VIEWS Schedule Routine, Read Routine (OP Routine) 11/13/2023 10:04 AM CDT S/P total knee arthroplasty, right documented in this encounter Results * XR Knee Right [...] D: ??11/13/2023 9:56 PM T: Report ID: [id number] Reading Location: ??[id number] Procedure Note Kwesi Kessler MD - 11/13/2023 [...] by Kwesi Kessler M.D. T: Report ID: [id number] Reading Location: [id number] us Kamar Gandara DO IMG XR PROCEDURES Final Result documented in this encounter Visit Diagnoses Diagnosis S/P total knee arthroplasty, right documented in this encounter Care Teams Senior Integration Developer Relationship Specialty Start Date End Date Fidencio French MD [address] [place] [address] PCP - General Internal Medicine 06/12/22 Dahlia Mendez PA [address] [facility] [address] [place] [address] Orthopedic Surgery 07/01/23 documented as of this encounter
--- OUTSIDE RECORDS SUMMARY | 2024-03-23 01:49 | XMS_ITS | Encounter Summary ---
Author Organization [facility] Healthcare Address [address] [place] [address] Care Team Providers Care Roving Changer Name Role Phone Fidencio French MD Primary Care Provider [phone] Dahlia Mendez Unavailable [phone] Encounter Details Date Type Department Care Team (Late st Contact Info) Description 07/07/2023 Orders Only [facility] Medical Group [facility] [address] Robb Lr MD [address] [place] [id number] Social History Tobacco Use Types Packs/Day Years Used Date Smoking Tobacco: Never Passive Smoke Exposure: Past Smokeless Tobacco: Never Alcohol Use Standard Drinks/Week Comments No 0 (1 standard drink = 0.6 oz pur e alcohol) [facility] Utilities Answer Date Recorded In the past 12 months has [employer], gas, oil, or water [employer] threatened to shut off services in your [...] week 07/02/2023 How often do you attend [facility] or adventism services? More than 4 times per year [...] place to sleep or slept in a prison (including now)? No 07/02/2023 Personal Safety Answer Date Recorded Have you ever been in or are you currently in a harmful physical or emotional relationship or is someone making you feel afraid or unsafe? 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 She is discharging home today and encouraged to follow up w her pcp. She endorses understanding. Note to follow. documented in this encounter Plan of Treatment Not on file documented as of this encounter Procedures Procedure Name Priority Date/Time Associated Diagnosis Comments EGFR Routine 07/07/2023 8:36 AM CDT CBC WITHOUT DIFFERENTIAL Routine 07/07/2023 8:36 AM CDT COMPREHENSIVE METABOLIC PANEL Routine 07/07/2023 8:36 AM CDT documented in this encounter Results * (ABNORMAL) eGFR (07/07/2023 8:36 AM CDT) eGFR 56(L) >=60 mL/min/1. 73 m2 [facility] Comment: Interpretive Data Reference Interval Normal ?>/= [...] Current interpretive data was last reviewed 2021. [facility], [address] [place] [address]., [id number] Blood 07/07/2023 8:36 AM CDT 07/07/2023 9:00 AM CDT us Robb Lr MD LAB BLOOD ORDERABLES Final R esult [facility] [address] Department [place] [address] * (ABNORMAL) Comprehensive metabolic panel (07/07/2023 8:36 AM CDT) Sodium 139 135 - 145 mmol/L MICHELA Comment:[address] [address] Potassium, pl 4.7 3.3 - 4.9 mmol/L MICHELA Comment:[address] [address] Chloride 102 97 - 110 mmol/L MICHELA Comment:[address] [address] CO2 27 22 - 32 mmol/L MICHELA Comment:[address] [address] Anion gap 10 2 - 15 mmol/L MICHELA Comment:[address] [address] BUN 18 6 - 25 mg/dL MIC[facility]LA Comment:[address] [address] Creatinine 1.09 0.60 - 1.10 mg/dL MIC[facility]LA Comment:[address] [address] Glucose 117 70 - 199 mg/dL [facility] Comment: Interpretive Data Fasting glucose >/= 126 [...] Current interpretive data was last revised 2022. [facility], [address] [place]., [address] Calcium 9.2 8.5 - 10.3 mg/dL MICHELA Comment:[address] [address] Bilirubin, total 0.4 0.1 - 1.2 mg/dL [facility] Comment:[address] [address] Protein, pl 7.7 6.5 - 8.5 g/dL [facility] Comment:[address] [address] Albumin 3.4(L) 3.5 - 5.0 g/dL [facility] Comment:[address] [address] Alk phos 65 40 - 130 Units/L [facility] Comment:[address] [address] ALT 14 7 - 45 Units/L [facility] Comment:[address] [address] AST 20 10 - 45 Units/L [facility] Comment:[address] [address] Blood 07/07/2023 8:36 AM CDT 07/07/2023 9:00 AM CDT us Robb Lr MD LAB BLOOD ORDERABLES Final R esult [facility] [address] Department [place] [address] * (ABNORMAL) CBC without differential (07/07/2023 8:36 AM CDT) WBC 10.8(H) 3.8 - 9.9 K/cumm MICHELA Comment:[address], [address] Hgb 10.4(L) 11.9 - 15.5 g/dL [facility] Comment:[address], [address] Hct 34.2(L) 35.6 - 45.5 % CERJOVI Comment:[address], [address] Plt 310 150 - 400 K/cumm [facility] Comment:[address], [address] MPV 10.6 9.1 - 12.3 fL CERNER Comment:[address], [address] RBC 3.95 3.90 - 5.20 M/cumm [facility] Comment:[address], [address] MCV 86.6 81.3 - 96.4 fL [facility] Comment:[address], [address] MCH 26.3(L) 27.1 - 33.3 pg CERNER Comment:[address], [address] MCHC 30.4(L) 32.3 - 35.7 g/dL CERNER Comment:[address], [address] RDW CV 16.0(H) 11.1 - 14.9 % CERJOVI Comment:[address], [address] RDW SD 50.8(H) 35.7 - 48.1 fL BANNERNER Comment:[address], [address] NRBC abs 0.00 0.00 - 0.01 K/cumm MICHELA Comment:[address], [address] Blood 07/07/2023 8:36 AM CDT 07/07/2023 9:00 AM CDT us Robb Lr MD LAB BLOOD ORDERABLES Final R esult MIC[facility] [address] [facility] Department [place] [address] documented in this encounter Visit Diagnoses Not on filedocumented in this encounter Care Teams Roving Changer Relationship Specialty Start [place] [address] [place] [address] PCP - General Internal Medicine 06/12/22 Dahlia Mendez PA [address] [address] Orthopedic Surgery 07/01/23 documented as of this encounter
--- OUTSIDE RECORDS SUMMARY | 2024-03-23 01:49 | XMS_ITS | Encounter Summary ---
Author Organization [facility] Healthcare Address [address] [place] [address] Care Team Providers Care Framing Carpenter Name Role Phone Fidencio French MD Primary Care Provider [phone] Dahlia Mendez Unavailable [phone] Encounter Details Date Type Department Care Team (Late st Contact Info) Description 07/07/2023 NH/SNF Visit [facility] Medical Group Post Acute Care [address] [phone] Robb Lr MD [address] [place] [id number] S/P total knee arthroplasty, right (Primary Dx); Essential hypertension; Type 2 diabetes mellitus without complication, unspecified whether long goods drier insulin use (HCC); Hyperlipidemia, unspecified hyperlipidemia type Social History Tobacco Use Types Packs/Day Years Used Date Smoking Tobacco: Never Passive Smoke Exposure: Past Smokeless Tobacco: Never Alcohol Use Standard Drinks/Week Comments No 0 (1 standard drink = 0.6 oz pur e alcohol) [facility] Utilities Answer Date Recorded In the past 12 months has [email or web address], gas, oil, or water [employer] threatened to shut off services in your [...] 07/02/2023 How often do you attend chur or confucianism services? More than 4 times per year 07/02/2023 Do you belong to any clubs o r organizations such as faith groups, unions, fraternal or athletic groups, or [...] place to sleep or slept in a care home (including now)? No 07/02/2023 Personal Safety Answer Date Recorded Have you ever been in or are you currently in a harmful physical or emotional relationship or is someone making you feel afraid or unsafe? 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 Senior Living Facility Discharge Note Admitting Provider: Robb Lr MD Discharge Provider: Robb Lr MD Primary Care Physician at Discharge: Fidencio French MD [phone] Admission Date: July 03, 2023 Discharge Date: July 07, 2023 Admission Location: [facility] Assessment and Plan Diagnoses and all orders for this visit: S/P total knee arthroplasty, right (Primary) Assessment & Plan: Chronic, stable; she should begin home PT/OT; If this cannot be arranged then at the very least sheshould begin PT/OT outpatient and follow up w [...] in shower. Her daughter will drive her. Essential hypertension Assessment & Plan: Chronic, stable; cont rx losartan Type 2 diabetes mellitus without complication, unspecified whether long goods drier insulin use (HCC) Assessment & Plan: Chronic, stable; cont rx lipitor, ozempic, farxiga Hyperlipidemia, unspecified hyperlipidemia type Assessment & Plan: Chronic, stable; cont rx lipitor Subjective and Objective Patient ID: Lindsay Pedersen is a 68 y.o. female. HPI/Rehab Course: This is a pleasant woman from [facility]. She presents to [facility] after two days in . She has undergone R TKA (OA) and Dr Fontana is her surgeon. She doesn't feel that her pain is well controlled and she has not had a BM x several days despite miralax and softeners. She plans to go home under her daughter's care on Friday. Otherwise, she denies new/acute medical problems. Today, she is resting well, comfortable. She reports good pain control. She feels that she can do well at her daughter's home. Vitals: Vitals BP 132/72 Pulse 81 Temp 36.8 ??C (98.2 ??F) SpO2 100% Physical Exam Vitals reviewed. Exam conducted with a project crew worker present. Constitutional: General: She is not in acute distress. Appearance: She is not ill-appearing, toxic-appearing or diaphoretic. HENT: Head: Normocephalic and atraumatic. Nose: Nose normal. No congestion or rhinorrhea. Eyes: General: Right eye: No discharge. Left eye: No discharge. Extraocular Movements: Extraocular movements intact. Pulmonary: Effort: Pulmonary effort is normal. No respiratory distress. Breath sounds: No stridor. Musculoskeletal: Comments: Dressing ant R knee dry, intact. No bruising, bleeding, redness, warmth Skin: General: Skin is dry. Coloration: Skin is not jaundiced or pale. Neurological: General: No focal deficit present. Mental Status: She is alert. Mental status is at baseline. Motor: Weakness present. Psychiatric: Mood and Affect: Mood normal. Behavior: Behavior normal. Pertinent Test Results: Recent Results (from the past 168 hour(s)) POCT glucose Collection Time: 07/01/23 2:55 PM Result Value Ref Range Glucose, POC 101 70 - 199 mg/dL Glucose comment 1 Use This Result POCT glucose Collection Time: 07/01/23 3:49 PM [...] 1 Use This Result Glucose comment 2 RN/ Notified Basic metabolic panel Collection Time: 07/02/23 [...] Glucose, POC 113 70 - 199 mg/dL POCT glucose Collection Time: 07/02/23 4:16 PM Result Value Ref Range Glucose, POC 116 70 - 199 mg/dL POCT glucose Collection Time: 07/02/23 8:57 PM Result Value Ref Range Glucose, POC 138 70 - 199 mg/dL Glucose comment 1 Use This Result Glucose comment 2 RN/MD Notified Hemoglobin and hematocrit Collection Time: 07/03/23 6:01 AM Result Value Ref Range Hgb 10.5 (L) 11.9 - 15.5 g/dL Hct 32.8 (L) 35.6 - 45.5 % Basic metabolic panel Collection Time: 07/03/23 6:01 AM Result Value Ref Range Sodium 135 135 - 145 mmol/L Potassium, pl 3.9 3.3 - 4.9 mmol/L Chloride 100 97 - 110 mmol/L CO2 26 22 - 32 mmol/L Anion gap 9 2 - 15 mmol/L BUN 12 6 - 25 mg/dL Creatinine 0.95 0.60 - 1.10 mg/dL Glucose 122 70 - 199 mg/dL Calcium 8.6 8.5 - 10.3 mg/dL eGFR Collection Time: 07/03/23 6:01 AM Result Value Ref Range eGFR 66 >=60 mL/min/1.73 m2 POCT glucose Collection Time: 07/03/23 7:34 AM Result Value Ref Range Glucose, POC 117 70 - 199 mg/dL Glucose comment 1 Use This Result POCT glucose Collection Time: 07/03/23 11:57 AM Result Value Ref Range Glucose, POC 132 70 - 199 mg/dL Glucose comment 1 Use This Result CBC without differential Collection Time: 07/07/23 8:36 AM Result Value Ref Range WBC 10.8 (H) 3.8 - 9.9 K/cumm Hgb 10.4 (L) 11.9 - 15.5 g/dL Hct 34.2 (L) 35.6 - 45.5 % Plt 310 150 - 400 K/cumm MPV 10.6 9.1 - 12.3 fL RBC 3.95 3.90 - 5.20 M/cumm MCV 86.6 81.3 - 96.4 fL MCH 26.3 (L) 27.1 - 33.3 pg MCHC 30.4 (L) 32.3 - 35.7 g/dL RDW CV 16.0 (H) 11.1 - 14.9 % RDW SD 50.8 (H) 35.7 - 48.1 fL NRBC abs 0.00 0.00 - 0.01 K/cumm Comprehensive metabolic panel Collection Time: 07/07/23 8:36 AM Result Value Ref Range Sodium 139 135 - 145 mmol/L Potassium, pl 4.7 3.3 - 4.9 mmol/L Chloride 102 97 - 110 mmol/L CO2 27 22 - 32 mmol/L Anion gap 10 2 - 15 mmol/L BUN 18 6 - 25 mg/dL Creatinine 1.09 0.60 - 1.10 mg/dL Glucose 117 70 - 199 mg/dL Calcium 9.2 8.5 - 10.3 mg/dL Bilirubin, total 0.4 0.1 - 1.2 mg/dL Protein, pl 7.7 6.5 - 8.5 g/dL Albumin 3.4 (L) 3.5 - 5.0 g/dL Alk phos 65 40 - 130 Units/L ALT 14 7 - 45 Units/L AST 20 10 - 45 Units/L eGFR Collection Time: 07/07/23 8:36 AM Result Value Ref Range eGFR 56 (L) >=60 mL/min/1.73 m2 Active Issues Requiring Follow-up: She needs to see her pcp and ortho within 2w, she endorses understanding For recent fractures please follow up with PCP/Ortho for further testing for Osteoporesis if not ordered on discharge from hospital. Discharge Disposition: Home Health: nursing and soc services asked to arrange DME: she needs a 2WW. Her daughter is going to purchase this but I have asked the CM for [facility] to consider reimbursing Discharge Medications: Current Outpatient Medications Medication Sig Dispense Refill Accu-Chek Guide Me Glucose Mtr misc 1 Insert daily Accu-Chek Guide test strips strip USE ONE STRIP TO CHECK GLUCOSE DAILY Accu-Chek Softclix Lancets lancets USE TO CHECK GLUCOSE ONCE DAILY amLODIPine (NORVASC) 10 mg tablet Take 1 tablet (10 mg total) by mouth daily apixaban (ELIQUIS) 2.5 mg tablet Take 1 tablet (2.5 mg total) by mouth 2 (two) times a day 28 tablet 0 atorvastatin (LIPITOR) 20 mg tablet Take 1 tablet (20 mg total) by mouth daily calcitRIOL (ROCALTROL) 0.25 mcg capsule Take 1 capsule (0.25 mcg total) by mouth daily dapagliflozin propanediol (Farxiga) 10 mg tablet Take 1 tablet every day by oral route. ergocalciferol (VITAMIN D) 50,000 unit capsule Take 1 capsule (50,000 Units total) by mouth once a week losartan (COZAAR) 100 mg tablet Take 1 tablet (100 mg total) by mouth daily 3 oxyCODONE (ROXICODONE) 10 mg tablet Take 1 tablet (10 mg total) by mouth every 4 (four) hours 30 tablet 0 Ozempic 0.25 mg or 0.5 mg (2 mg/3 mL) pen injector injection Inject 0.5 mg under the skin once a week Injects on Sundays. polyethylene glycol 236-22.74-6.74 -5.86 gram solution Take 240 mL by mouth once No current facility-administered medications for this visit. Discharge Instructions: Discharge activity: Per therapy discharge instructions Discharge diet: as tolerated, diabetic Post-Discharge Dressing Care: Per facility instructions Call provider for: difficulty breathing or chest pain Call provider for: redness, tenderness, or signs of infection (pain, swelling, redness, odor or green/yellow discharge around incision site) Call provider for: headache, visual disturbances, weakness and speech changes Outpatient Follow-Up: Follow up with PCP in the next 2 weeks Future Appointments Date Time Provider Department Center 07/16/2023 10:00 Dahlia Ruffin PA [facility] OS [address] MH Specialty 08/12/2023 1:00 PM Jody Durán [employer] [employer] ONC [facility] 5F [facility] 08/13/2023 10:15 AM Kamar Gandara DO [facility] OS [address] Specialty My total encounter time on 07/07/2023 was 17 minutes which was spent in the activities documented inthe note. This includes time spent prior to the visit and after the visit in direct care of the patient. This time does not include time spent in any separately reportable services. A rollator or walker would greatly improve patient's ability to perform MRADL's independently, device will assist the pt in grooming, eating, dressing, getting out of bed or chair. Patient is able tosafely use walker/rollator. Patient's functional mobility deficit is resolved with use of the walker/rollator. The walker will improve the overall aspects of increasing the IADL?? S and ADL's to improve independence and safety. Electronically signed by Robb Lr MD 07/08/2023 1:24 PM Voice recognition software [employer] was used dictate and transcribe this document. Lpn Private Duty variances may occur. Despite proofreading, typographical errors may occur. documented in this encounter Miscellaneous Notes * Assessment & Plan Note - Robb Lr MD - 07/08/2023 1:23 PM CDT Associated Problem(s): S/P total knee arthroplasty, right Chronic, stable; she should begin home PT/OT; If this cannot be arranged then at the very least sheshould begin PT/OT outpatient and follow up w [...] in shower. Her daughter will drive her. * Assessment & Plan Note - Robb Lr MD - 07/08/2023 1:21 PM CDT Associated Problem(s): Type 2 diabetes mellitus without complication (CMS/HCC) (HCC) Chronic, stable; cont rx lipitor, ozempic, farxiga * Assessment & Plan Note - Robb Lr MD - 07/08/2023 1:21 PM CDT Associated Problem(s): Hyperlipidemia Chronic, stable; cont rx lipitor * Assessment & Plan Note - Robb Lr MD - 07/08/2023 1:20 PM CDT Associated Problem(s): Essential hypertension Chronic, stable; cont rx losartan documented in this encounter Plan of Treatment Not on file documented as of this encounter Visit Diagnoses Diagnosis S/P total knee arthroplasty, right- Primary Essential hypertension Unspecified essential hypertension Type 2 diabetes mellitus without complication, unspecified whether long goods drier insulin use (HCC) Hyperlipidemia, unspecified hyperlipidemia type documented in this encounter Care Teams Framing Carpenter Relationship Specialty Start Date End Date Fidencio French MD [address] [place] [address] PCP - General Internal Medicine 06/12/22 Dahlia Mendez PA [address] [place] [address] [place] [id number] Orthopedic Surgery 07/01/23 documented as of this encounter
--- OUTSIDE RECORDS SUMMARY | 2024-03-23 01:49 | XMS_ITS | Encounter Summary ---
Author Organization [facility] Healthcare Address [address] [place] [address] Care Team Providers Care Cleaning Custodian Name Role Phone Fidencio French MD Primary Care Provider [phone] Dahlia Mendez Unavailable [phone] Reason for Visit * Reason Onset Date Comments medication questions 08/08/2023 Encounter Details Date Type Department Care Team (Late st Contact Info) Description 08/08/2023 Telephone [facility] Medical Group Orthopedics and Sports Medicine [address] [place] [phone] Kamar Gandara DO [address] [place] [phone] medication questions Social History Tobacco Use Types Packs/Day Years Used Date Smoking Tobacco: Never Passive Smoke Exposure: Past Smokeless Tobacco: Never Alcohol Use Standard Drinks/Week Comments No 0 (1 standard drink = 0.6 oz pur e alcohol) [facility] Utilities Answer Date Recorded In the past 12 months has [employer], gas, oil, or water company threatened [...] often do you attend chur ch or episcopal services? 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 Medication taken cared of and pt contacted. * Telephone Encounter - Bethany Baird - 08/08/2023 11:28 AM CDT JAW Needs verification on prescriptions please call back documented in this encounter Plan of Treatment Not on file documented as of this encounter Visit Diagnoses Not on filedocumented in this encounter Care Teams Cleaning Custodian Relationship Specialty Start Date End Date Fidencio French MD [address] [place] [id number] PCP - General Internal Medicine 06/12/22 Dahlia Mendez PA [address] [place] [address] Orthopedic Surgery 07/01/23 documented as of this encounter
--- OUTSIDE RECORDS SUMMARY | 2024-03-23 01:49 | XMS_ITS | Encounter Summary ---
Author Organization [facility] Healthcare Address [address] [place] [address] Care Team Providers Care Digital Analytics Manager Name Role Phone Fidencio French MD Primary Care Provider [phone] Dahlia Mendez Unavailable [phone] Reason for Visit * Reason Onset Date Comments refill 07/29/2023 Encounter Details Date Type Department Care Team (Late st Contact Info) Description 07/29/2023 Telephone [facility] Medical Group Orthopedics and Sports Medicine [address] [place] [phone] Kamar Gandara DO [address] [place] [phone] refill Social History Tobacco Use Types Packs/Day Years Used Date Smoking Tobacco: Never Passive Smoke Exposure: Past Smokeless Tobacco: Never Alcohol Use Standard Drinks/Week Comments No 0 (1 standard drink = 0.6 oz pur e alcohol) [facility] Utilities Answer Date Recorded In the past 12 months has [employer], gas, oil, or water company threatened [...] often do you attend chur ch or confucianism services? 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 Gender Identity Not on file Sexual Orientation Not on file documented as of this encounter Miscellaneous Notes * Telephone Encounter - Alan Francois MA - 07/30/2023 8:55 AM CDT INFORMATION FORWARDED TO JAW * Telephone Encounter - Corinne Galarza - 07/29/2023 3:11 PM CDT JAW Refill of Oxycodone [facility] [place] documented in this encounter Plan of Treatment Not on file documented as of this encounter Visit Diagnoses Not on filedocumented in this encounter Care Teams Digital Analytics Manager Relationship Specialty Start [place] [address] [place] [id number] PCP - General Internal Medicine 06/12/22 Dahlia Mendez PA [address] [place] [address] Orthopedic Surgery 07/01/23 documented as of this encounter
--- OUTSIDE RECORDS SUMMARY | 2024-03-23 01:49 | XMS_ITS | Encounter Summary ---
Author Organization [facility] Healthcare Address [address] [place] [address] Care Team Providers Care Hand Drawer In Helper Name Role Phone Fidencio French MD Primary Care Provider [phone] Dahlia Mendez Unavailable [phone] Reason for Referral * Procedure (Routine) - Authorized Specialty Diagnoses / Procedures Referred By Contac t Referred To Contact Diagnoses Primary osteoarthritis of left knee Procedures Large Joint (Hip, Knee, Shoulder) Injection: L knee [facility] [address] [place] [address] Phone: tel: fax: [facility] Medical Group Referral ID Status Reason Start Date Expiration Date V isits Requested Visits Authorized [id number] Authorized 12/08/2023 01/06/2025 1 1 Reason for Visit * Reason Comments Injections Encounter Details Date Type Department Care Team (Latest Contact Info) Description 12/08/2023 9:45 AM CDT Clinical Support [facility] Medical Group Orthopedics and Sports Medicine [address] [place] [address] [place] [phone] Dahlia Mendez [facility] [address] [place] [phone] Primary osteoarthritis of left knee (Primary Dx) Social History Tobacco Use Types Packs/Day Years Used Date Smoking Tobacco: Never Passive Smoke Exposure: Past Smokeless Tobacco: Never Alcohol Use Standard Drinks/Week Comments No 0 (1 standard drink = 0.6 oz pur e alcohol) [facility] Utilities Answer Date Recorded In [...] often do you attend chur ch or nondenominational services? 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 Gender Identity Not on file Sexual Orientation Not on file documented as of this encounter Last Filed Vital Signs Vital Sign Reading Time Taken Comments Blood Pressure - - Pulse - - Temperature - - Respiratory Rate - - Oxygen Saturation - - Inhaled Oxygen Concentration - - Weight 97.1 kg (214 lb) 12/08/2023 9:36 AM CDT Height 157.5 cm (5' 2 ) 12/08/2023 9:36 AM CDT Body Mass Index 39.14 12/08/2023 9:36 AM CDT documented in this encounter Progress Notes * Dahlia Mendez PA - 12/08/2023 9:45 AM CDTAssociated Order(s): Large Joint (Hip, Knee, Shoulder) Injection: L knee Post-Procedure Diagnose(s): Primary osteoarthritis of left knee Images from the original note were not included. Subjective/Objective Patient ID: Lindsay Pedersen is a 68 y.o. female. Chief Complaint Chief Complaint Patient presents with Left Knee - Injections Vitals Ht 157.5 cm (5' 2 ) Wt 97.1 kg (214 lb) BMI 39.14 kg/m?? HPI Patient is presenting today for follow up of left knee pain secondary to primary osteoarthritis of the left knee. She is here today for a Synvisc injection. She continues to have left knee pain that is worse with activity, especially going up and down stairs. She denies any new trauma or injury to the knee. She denies fever and chills. Review of Systems Constitutional: Negative for chills and fever. Respiratory: Negative for cough and shortness of breath. Gastrointestinal: Negative for nausea and vomiting. Genitourinary: Negative for difficulty urinating and dysuria. Musculoskeletal: Positive for arthralgias, joint swelling and myalgias. Neurological: Negative for weakness and numbness. All other systems reviewed and are negative. Examination: General Appearance: The patient is in no acute distress. Alert and oriented x3. Body mass index is 39.14 kg/m??. Respiratory: Respirations are even and unlabored. The patient does not use accessory muscles of respiration. Eyes: Pupils are equal and reactive. Psych: The patient is pleasant and cooperative and acts appropriately. Skin: The skin is grossly intact. There is no evidence for infection. Peripheral Pulses: There is no acute circulatory compromise to the extremities. Neurologic: The patient has no focal or lateralizing deficits. Musculoskeletal: Left Knee Exam Muscle Strength The patient has normal left knee strength. Tenderness The patient is experiencing no tenderness. Range of Motion The patient has normal left knee ROM. Other Erythema: absent Sensation: normal Pulse: present Effusion: no effusion present Large Joint (Hip, Knee, Shoulder) Injection: L knee Performed by: Dahlia Mendez PA Authorized by: Dahlia Mendez PA Large Joint Injection/Aspiration: Consent Given by: Patient Site marked: the procedure site was marked Verbal consent obtained: Yes Supporting Documentation: Indications: Pain Procedure Details: Location: Knee Site: L knee Prep: patient was prepped using a clean technique Approach: Lateral Ultrasound guided: No Fluroscopic guidance: No Medications: 16 mg hylan g-f 20 16 mg/2 mL Patient tolerance: Patient tolerated the procedure well with no immediate complications Assessment/Plan Diagnoses and all orders for this visit: Primary osteoarthritis of left knee (Primary) Comments: - discussed tx options, patient would like to move forward with the left knee injection today - tolerated well, see procedure note - f/u as scheduled Other orders - Large Joint (Hip, Knee, Shoulder) Injection Return in about 1 week (around 12/15/2023). VINCENZO Lopez documented in this encounter Plan of Treatment Not on file documented as of this encounter Procedures Procedure Name Priority Date/Time Associated Diagnosis Comments [place] ARTHROCENTESIS ASPIR&/INJ MAJOR JT/BURSA W/O US Routine 12/08/2023 9:45 AM CDT Primary osteoarthritis of left knee documented in this encounter Results * [place] ARTHROCENTESIS ASPIR&/INJ MAJOR JT/BURSA W/O US (12/08/2023 9:45 AM CDT) Narrative Dahlia Mendez PA - 12/08/2023 9:45 AM CDT Dahlia Mendez PA ? 12/08/2023 ??9:47 AM Large Joint (Hip, Knee, Shoulder) Injection: L knee Performed by: Dahlia Mendez PA Authorized by: Dahlia Mendez PA ?? Large Joint Injection/Aspiration: ??Consent Given by: ??Patient ??Site marked: the procedure site was marked ?Verbal consent obtained: Yes ?? Supporting Documentation: ??Indications: ??Pain Procedure Details: ??Location: ??Knee ??Site: ??L knee ??Prep: patient was prepped using a clean technique ?Approach: ??Lateral ??Ultrasound guided: No ?Fluroscopic guidance: No ?Medications: ??16 mg hylan g-f 20 16 mg/2 mL ??Patient tolerance: ??Patient tolerated the procedure well with no immediate complications us Dahlia LOYA IN CLINIC/BEDSIDE ORDERABL ES Final Result documented in this encounter Visit Diagnoses Diagnosis Primary osteoarthritis of left knee- Primary documented in this encounter Administered Medications Inactive Administered Medications - up to 3 most recent administrations Medication Order MAR Action Action Date Dose Rate Site hylan g-f 20 (SYNVISC) 16 mg/2 mL injection 16 mg 16 mg, intra-articular, One-Time Injection, Starting on 12/08/23 at 0945, For 1 dose, Indications: Osteoarthritis of the KneeIndications:Osteoarthritis of the Knee Given 12/08/2023 9:45 AM CDT 16 mg Left Knee documented in this encounter Care Teams Hand Drawer In Helper Relationship Specialty Start Date End Date Fidencio French MD [address] [place] [address] PCP - General Internal Medicine 06/12/22 Dahlia Mendez PA [address] [facility] [address] [place] [id number] Orthopedic Surgery 07/01/23 documented as of this encounter
--- OUTSIDE RECORDS SUMMARY | 2024-03-23 01:49 | XMS_ITS | Referral Summary ---
Author Organization [facility] Address [address] [place] [address] Care Team Providers Care Patient Ombudsperson Name Role Phone Fidencio French MD Primary Care Provider [phone] Dahlia Mendez PA Unavailable [phone] Encounters Date Type Department Care Team Description 12/22/2023 2:30 PM CDT Clinical Support [facility] Medical Group Orthopedics and Sports Medicine [address] [place] [phone] Kamar Gnadara DO Primary osteoarthritis of left knee (Primary Dx) from Last 3 Months Allergies Active Allergy Reactions Criticality Noted Date [...] Primary osteoarthritis of right knee 05/13/2023 12/08/2023 Social History Tobacco Use Types Packs/Day Years Used Date Smoking Tobacco: Never Passive Smoke Exposure: Past Smokeless Tobacco: Never Tobacco Cessation:Counseling Given: Not Answered Alcohol Use Standard Drinks/Week Comments No 0 (1 standard drink = 0.6 oz pur e alcohol) [facility] Utilities Answer Date Recorded In the [...] often do you attend chur ch or buddhist services? More than 4 times per year 07/02/2023 Do you belong to any clubs o r organizations such as judaism groups, unions, fraternal or athletic groups, or [...] place to sleep or slept in a long-term (including now)? No 07/02/2023 Personal Safety Answer Date Recorded Have you ever been in or are you currently in a harmful physical or emotional relationship or is someone making you feel afraid or unsafe? 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 Gender Identity Not on file Sexual [...] 12/15/2023 3:13 PM CDT Plan of Treatment Not on file Medical Devices Implanted Type Area Information Security Specialist Device Identifier Shelf Expiration Date Model / Serial / Lot [employer] Attune Cruciate Retain Cementless Knee Right 5 Narrow Component [id number] - [id number] Implanted:Qty: 1 on 07/01/2023 by Kamar Gandara DO at [facility] Right: Knee [employer] [id number] 11/22/2031 [id number] / / [id number] [employer] Attune Fb Tib Base Sz 4 Por [id number] - [id number] Implanted:Qty: 1 on 07/01/2023 by Kamar Gandara DO at [facility] Right: Knee [employer] [id number] 12/22/2031 [id number] / / [id number] [employer] Insert Tibial Knee Fixed Rm Posterior Stabilized Attune 5mm Size 5 Polyethylene [id number] - [id number] Implanted:Qty: 1 on 07/01/2023 by Kamar Gandara DO at [facility] Right: Knee [employer] [id number] 03/23/2031 [id number] / / [id number] Procedures Procedure Name Priority Date/Time Associated Diagnosis Comments [place] ARTHROCENTESIS ASPIR&/INJ MAJOR JT/BURSA W/O US Routine [...] Recently Relevant to Health Maintenance Results * [place] ARTHROCENTESIS ASPIR&/INJ MAJOR JT/BURSA W/O US (12/22/2023 [...] compared to prior imaging studies performed at [facility] on 01/03/2021, 01/09/2022 and 06/19/2022. The breasts [...] compared to prior imaging studies performed at [facility] on 01/03/2021, 01/09/2022 and 06/19/2022. The breasts [...] BI-RADS CATEGORY 1: Negative. us Jody Durán DOG BEAUTICIAN IMG MAMMO PROCEDURES Fin al Result * [...] of Race in Diagnosing Kidney Disease, JASN 202). The CKD-EPI equation should not be used for patients with unstable renal function and has not been validated in children and those over 70. Current interpretive data was last reviewed 2021. [facility], [facility], [place]., [address] Blood 07/07/2023 8:36 AM CDT 07/07/2023 9:00 AM CDT Robb Lr MD LAB BLOOD ORDERABLES Final R esult Performing Organization Address [facility] de Phone Number [phone] [address] * (ABNORMAL) Hemoglobin A1c (06/11/2023 9:28 AM CDT) Hgb A1C 6.3(H) 4.0 - 5.6 % Estimated Average Glucose 134 mg/dL [facility] Comment: The ADA recommends reporting an estimated Average Glucose (eAG) with all Hemoglobin A1c results using the equation derived from a study of 507 normal and diabetic adults. ??Minority populations were underrepresented and children were not included. ?? (Diabetes Care 31:4638-9976, 2008). ??The eAG is not equivalent to a fasting glucose. Blood 06/11/2023 9:28 AM CDT 06/11/2023 9:40 AM CDT Kamar Gandara DO LAB BLOOD ORDERABLES Final Res ult Performing Organization Address [facility] de Phone Number [address] [address] * Dexa Axial Skeleton Bone Density 1 [...] vitamin-D and calcium. ??History of hysterectomy. ? Information Security Specialist/Model: Trippy Bandz A (S/N [id number]) CLINICAL INFORMATION: Current height: ??62 ??inches ? [...] PM T: ??09/23/2022 3:52 PM Report ID: [id number] Reading Location: ??[id number] Procedure Note Sushila Quintero MD - 09/23/2022 EXAM DESCRIPTION: DEXA AXIAL SKELETON BONE DENSITY 1 OR MORE SITES REASON FOR STUDY: 67 y/o year old F with given history of:Postmenopausal status. Patient takes vitamin-D and calcium. History of hysterectomy. Information Security Specialist/Model: HoloKetto Horizon A (S/N [id number]) CLINICAL INFORMATION: Current height: 62 inches Maximum [...] Electronically signed by Sushila Quintero M.D. TW: TANYA Report ID: [id number] Reading Location: [place] [address] Amina Emily Shazia DOG BEAUTICIAN IMG DXA PROCEDURES Final Result * Serum Hepatitis C ab (06/18/2012 10:52 AM CDT) HCV ab Negative NEG HISTORICAL RESULTS Serum 06/18/2012 10:5 2 AM CDT Narrative HISTORICAL RESULTS - 06/19/2012 4:50 AM CDT LAB Frequency Standing Order? No Expiration Date: Interpretive Data If confirmation is required, call Laboratory Customer Service to request sample to be sent to [facility] for Hepatitis C Virus (HCV) RNA Detection and Quantitation by Real-Time Reverse Aquaculture Farmer-PCR (RT-PCR). Current interpretive data was last revised on 2011 us Rommel Vaughan DO LAB BLOOD ORDERABLES Final Resul t HISTORICAL RESULTS from Last 3 Months or Most Recently Relevant to Health Maintenance Insurance [employer] [facility] Address: [address] [address] [place] [address] [employer] [facility] MEDIC[facility] Address: [address] [address] [place] [address] Advance Directives For more information, please contact: [phone] * Full Code (Latest Code Status on File) Date Activated Date Inactivated Comments 07/01/2023 3:35 PM 07/03/2023 6:36 PM Care Teams Patient Ombudsperson Relationship Specialty Start Date End Date Fidencio French MD [address] [place] [address] PCP - General Internal Medicine 06/12/22 Dahlia Mendez PA [address] [place] [address] Orthopedic Surgery 07/01/23
--- OUTSIDE RECORDS SUMMARY | 2024-03-23 01:49 | XMS_ITS | Encounter Summary ---
Author Organization [facility] Healthcare Address [address] [place] [address] Care Team Providers Care Loss Prevention Guard Name Role Phone Fidencio French MD Primary Care Provider [phone] Dahlia Mendez Unavailable [phone] Reason for Visit * Auth/Cert (Routine) Specialty Diagnoses / Procedures Referred By Kirt t Referred To Contact Diagnoses Primary osteoarthritis of right knee Primary osteoarthritis of right knee [M17.11] Procedures DE ARTHRP KNE CONDYLE&PLATU MEDIAL&LAT COMPARTMENTS RIGHT TOTAL KNEE ARTHROPLASTY Referral ID Status Reason Start Date Expiration Date Visits Re quested Visits Authorized [id number] 1 1 Encounter Details Date Type Department Care Team (Late st Contact Info) Description 07/01/2023 12:35 PM CDT - 07/01/2023 3:05 PM CDT Surgery [facility] OR [address] [place] [address] Kamar Gandara DO [address] [place] [id number] RIGHT TOTAL KNEE ARTHROPLASTY Surgery Details Date/Time Status Location OR Service Patient Class Case Class Case Type Trauma Case? 07/01/2023 12:35 PM Posted [facility] OPERATING ROOM OR 18 Orthopaedics Outpatient in Bed Elective Panel 1 Procedure LRB Anes Op Region Wound Class Comments RIGHT TOTAL KNEE ARTHROPLASTY Right General Knee Class I - Clean yolanda Surgeon Surgeon Role Service Panel Kamar Gandara DO Primary Orthopaedics 1 Case Notes RTKA documented in this encounter Social History Tobacco Use Types Packs/Day Years Used Date Smoking Tobacco: Never Passive Smoke Exposure: Past Smokeless Tobacco: Never Alcohol Use Standard Drinks/Week Comments No 0 (1 standard drink = 0.6 oz pur e alcohol) [facility] Utilities Answer Date Recorded In the [...] often do you attend chur ch or denominational services? More than 4 times per year [...] place to sleep or slept in a alf (including now)? No 07/02/2023 Personal Safety Answer Date Recorded Have you ever been in or are you currently in a harmful physical or emotional relationship or is someone making you feel afraid or unsafe? 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 Inpatient Discharge Summary BRIEF OVERVIEW Admitting Provider: Kamar Gandara DO Discharge Provider: No att. providers found Primary Care Physician at Discharge: Fidencio French MD [phone] Admission Date: 07/01/2023 Discharge Date: 07/03/2023 Admission Location: [facility] Problems/Diagnoses: Principal Problem: Primary osteoarthritis of [...] admitted. She was discharged on 07/03/[address] [facility] in good condition. She will follow up [...] Service Line: Home Health Primary disciplines requested: Half-Way Physical Therapy Home Health Services: Therapy to [...] or ointments to skin incision. Walker The [id number] evaluation was performed on: 07/01/2023 Discharge Medications: [...] mL by mouth once Commonly known as: Audra Outpatient Follow-Up: Future Appointments Date Time Provider Department Center 07/16/2023 10:00 AM Dahlia Mendez PA [facility] 340 Specialty 08/12/2023 1:00 PM Jody Durán NP [facility] CAM 5F [facility] 08/13/2023 10:15 AM Kamar Gandara DO [facility] Specialty Contact Information for Follow-ups Fidencio French MD Specialty: Internal Medicine Relationship: PCP - General [address] [place] [address] Next Steps: Follow up in 1 week(s) Cosigned by Kamar Gandara DO at 07/03/2023 4:45 PM CDT documented in this encounter Discharge Instructions * Attachments The following attachments cannot be sent through Care Everywhere. * Knee Replacement (Discharge Care) (Dominican) documented in this encounter Medications at Time [...] Departure Means Destination Comment s Discharge to [place], [place]) documented in this encounter Progress Notes * Eufemia Lim, JOELLE - 07/03/2023 1:43 PM CDT DISCHARGE TO [facility] Social Work has coordinated discharge plan. Patient has been accepted to [facility] - RM 207. RN informed to call report and fax orders to numbers listed below. Patient, family etc. are aware and are agreeable to plan. [facility] Auth ID [id number] Approved 07/03/23 - 07/07/[address] [place] [address] Eufemia Lim LCSW 07/03/2023 1:43 PM * Gonzalo Wilson - 07/03/2023 12:32 PM CDT 07/03/23 1200 Time Spent Start Time 1230 Patient Spiritual Assessment Active in Mormon Yes [facility] of L[facility] Dawna Harmon Clinical Encounter Type Visited With Patient Response Type Continuing visit;Surgical visit Routine Visit Follow-up Surgical Visit Post-op (Patient felt surgery went well and receptive to prayer of thanksgiving.) Reason for visit Support Interventions Interventions Offer emotional support;Active listening;Prayer Patient appreciated prayer and devotional. * Eufemia Lim LCSW - 07/03/2023 11:23 AM CDT [facility] is accepting. [facility] updated patient and patient's daughter, Maria Elena, at bedside. Both are agreeable and happy to hearthat a bed is available for the patient. [facility] submitted clinicals to [facility] for prior authorization. Auth is pending. Ref# [id number] Eufemia Lim LCSW 07/03/2023 11:25 AM * Nancy [...] now. Reports that she is going to [facility] this afternoon. Patient states that she is [...] Type Ankle pumps;Quad sets;Glut sets;SLR;ABD/ADD;Heel slides Reps/Sets 10/ Supine-Motion AROM;AAROM Supine-Exercise Comments Patient continues to require min assist for SLR's. Self assisted ROM for heelslides. Seated Seated-Exercises Lower extremity (right) Seated-Exercise Type Knee flex Reps/Sets 10/ Seated-Motion AROM Bed Mobility 1 Bed Mobility [...] Continue with current plan Recommendation/Plan PT Recommendation/Plan Half-Way Facility Patient at high risk for Falls;Readmission;Injury [...] (from Physical Therapy) Active Problems Problem: PT [facility] Start Date: 07/02/23 Goal Start Date Expected End Date End Date PT [facility] - [facility] 1 07/02/23 07/16/23 -- Goal Details: Pt will perform LE TKA seated/supine therex x 10 reps each, independently -progressing Goal Start Date Expected End Date End Date PT [facility] 2 07/02/23 07/16/23 -- Goal Details: Pt will perform all bed mobility with no assist. -progressing Goal Start Date Expected End Date End Date PT [facility] 3 07/02/23 07/16/23 -- Goal Details: Pt will perform sit to stand and bed to/from chair transfers with wheeled walker and no assist. -progressing Goal Start Date Expected End Date End Date PT [facility] 4 07/02/23 07/16/23 -- Goal Details: Pt will ambulate 150+ feet with wheeled walker and standby assist.-progressing Goal Start Date Expected End Date End Date PT [facility] 5 07/02/23 07/16/23 -- Goal Details: Pt [...] and use of AE (sock aid and cnc operator programmer) to doff/don B socks and don panties [...] balance. Pt was edu with use of polar ice machine , that they can use frozen water bottles vs ice. Precautions Precautions Bed/Chair Alarm RLE Weight Bearing WBAT Pain Assessment Pain Score 6 (R knee) Safe Environment End of Therapy Session Safe Environment End of Therapy Session Patient left in chair;Chair alarm in place and activated;RNnotified;Call light within reach;Overbed table within reach Recommendation/Plan OT Recommendation Half-Way Facility Patient at high risk for Falls;Injury [...] 07/03/2023 4:45 PM CDT * Nancy Martinez, INCIDENT RESPONSE COORDINATOR - 07/02/2023 3:22 PM CDT Physical Therapy [...] Reps/Sets 12/22 Supine-Motion AROM;AAROM Supine-Exercise Comments Patient required assistance [...] Continue with current plan Recommendation/Plan PT Recommendation/Plan Half-Way Facility Patient at high risk for Falls;Injury [...] End Date End Date PT LTG - [facility] 1 07/02/23 07/16/23 -- Goal Details: Pt will perform LE TKA seated/supine therex x 10 reps each, independently -progressing Goal Start Date Expected End Date End Date PT [facility] - [facility] 2 07/02/23 07/16/23 -- Goal Details: Pt will perform all bed mobility with no assist. -progressing Goal Start Date Expected End Date End Date PT [facility] - [facility] 3 07/02/23 07/16/23 -- Goal Details: Pt will perform sit to stand and bed to/from chair transfers with wheeled walker and no assist. -progressing Goal Start Date Expected End Date End Date PT [facility] - [facility] 4 07/02/23 07/16/23 -- Goal Details: Pt will ambulate 150+ feet with wheeled walker and standby assist. -progressing Goal Start Date Expected End Date End Date PT [facility] 5 07/02/23 07/16/23 -- Goal Details: Pt [...] 3:18 PM - Electronically signed by Chris Peerz M.D. RB T: Report ID: [id number] ReadingLocation: [id number] Current Facility-Administered Medications Medication Dose Route Frequency Provider Last Rate Last Admin amLODIPine (NORVASC) tablet 10 mg 10 mg oral Daily Dahlia Mendez PA 10 mg at 07/02/23 0822 apixaban (ELIQUIS) tablet 2.5 mg 2.5 mg oral BID Dahlia Mendez PA 2.5 mg at 07/02/23 0822 atorvastatin (LIPITOR) tablet 20 mg 20 mg oral Nightly Dahlia Mendez PA 20 mg at 07/01/232106 calcitRIOL (ROCALTROL) capsule 0.25 mcg 0.25 mcg [...] POLLY Dahlia Mendez PA 10 mLat 07/01/23 210 sodium chloride 0.9% flush 0.5-20 mL 0.5-20 [...] is requesting rehab placement. Discussed with social welfare research worker and referrals have been sent out -continue [...] or mistranslated/substituted words.? Bernardino Bahena MD Hospitalist, [facility] 07/02/2023 3:19 PM * Balbir Ayala - 07/02/2023 11:34 AM CDT Attempted visit but pt busy. 07/02/23 1100 Time Spent Start Time 1134 Patient Spiritual Assessment Spirituality Assessed Unable to assess Sikh Affiliation Holiness Clinical Encounter Type Visited With Patient Response Type Routine visit * Francisco Funez - 07/02/2023 10:41 AM CDT PASRR completed No Level II required. Individual ID [id number] Assessment ID [id number] Francisco Funez 10:41 AM 07/02/2023 * Nancy [...] Type Ankle pumps;Quad sets;Glut sets;SLR;ABD/ADD;Heel slides Reps/Sets 10/1 Supine-Motion AROM;AAROM Supine-Exercise Comments assist required for SLR's and heelslides Seated Seated-Exercises Lower extremity (right) Seated-Exercise Type Knee flex Reps/Sets 10/1 Seated-Motion AROM Bed Mobility 1 Bed Mobility [...] Continue with current plan Recommendation/Plan PT Recommendation/Plan Half-Way Facility Patient at high risk for Falls;Injury [...] (from Physical Therapy) Active Problems Problem: PT Mis Start Date: 07/02/23 Goal Start Date Expected End Date End Date PT LT - [facility] 1 07/02/23 07/16/23 -- Goal Details: Pt will perform LE TKA seated/supine therex x 10 reps each, independently -progressing Goal Start Date Expected End Date End Date PT [facility] - [facility] 2 07/02/23 07/16/23 -- Goal Details: Pt will perform all bed mobility with no assist. -progressing Goal Start Date Expected End Date End Date PT [facility] - [facility] 3 07/02/23 07/16/23 -- Goal Details: Pt will perform sit to stand and bed to/from chair transfers with wheeled walker and no assist. -progressing Goal Start Date Expected End Date End Date PT [facility] - [facility] 4 07/02/23 07/16/23 -- Goal Details: Pt will ambulate 150+ feet with wheeled walker and standby assist. -progressing Goal Start Date Expected End Date End Date PT [facility] - [facility] 5 07/02/23 07/16/23 -- Goal Details: Pt [...] foot swelling. BHATIA of materials to don bone puller shirt. SUP to stand and complete [...] Using Single point cane Home ADL Equipment-Available Aerobics Instructor Home ADL Equipment-Currently Using (n/a) Additional Comments Pt lives at home alone, however plans to DC [facility] home. [facility] home is 1 story home with tub/shower chair, standard toilet seat. IND with adls, iadls, ambulating with cane. 1 fallin the last 6 mo Prior Function Level of Parke Independent with ADLs;Independent functional transfers;Independent with ambulation;Needs [...] Plan of care initiated Recommendation/Plan OT Recommendation Half-Way Facility Recommend SNF due to Risk of [...] (from Occupational Therapy) Active Problems Problem: OT [facility] Start Date: 07/02/23 Goal Start Date Expected End Date End Date OT [facility] - [facility] 1 07/02/23 07/16/23 -- Goal Details: 1) LE ADL IND'ly WITH AE PRN. Goal Start Date Expected End Date End Date OT [facility] - [facility] 2 07/02/23 07/16/23 -- Goal Details: 2) FUNCTIONAL MOBILITY TO/FROM BATHROOM AND ALL ASPECTS TOILETING MODIFIED INDEP WITH DME. Goal Start Date Expected End Date End Date OT [facility] - [facility] 3 07/02/23 07/16/23 -- Goal Details: 3) STAND AT SINK X4 MIN FOR ADL WITH GOOD BALANCE. Goal Start Date Expected End Date End Date OT [facility] - [facility] 4 07/02/23 07/16/23 -- Goal Details: PERFORM ITEM RETRIEVAL FROM HIGH/LOW POSITIONS WITH GOOD BALANCE/SAFETY. Goal Start Date Expected End Date End Date OT [facility] - [facility] 5 07/02/23 07/16/23 -- Goal Details: PERFORM [...] Single point cane Prior Function Level of Parke Independent with ADLs;Independent functional transfers;Independent with ambulation [...] the discharge summary Recommendation/Plan PT Recommendation/Plan (S) Half-Way Facility Patient at high risk for Falls [...] Date Expected End Date End Date PT G - [facility] 1 07/02/23 07/16/23 -- Goal Details: Pt will perform LE TKA seated/supine therex x 10 reps each, independently Goal Start Date Expected End Date End Date PT [facility] - [facility] 2 07/02/23 07/16/23 -- Goal Details: Pt will perform all bed mobility with no assist. Goal Start Date Expected End Date End Date PT [facility] - [facility] 3 07/02/23 07/16/23 -- Goal Details: Pt will perform sit to stand and bed to/from chair transfers with wheeled walker and no assist. Goal Start Date Expected End Date End Date PT [facility] - [facility] 4 07/02/23 07/16/23 -- Goal Details: Pt will ambulate 150+ feet with wheeled walker and standby assist. Goal Start Date Expected End Date End Date PT [facility] - [facility] 5 07/02/23 07/16/23 -- Goal Details: Pt [...] urine CKD (chronic kidney disease), stage III ([facility]) DM2 (diabetes mellitus, type 2) ([facility]) Ear pain, bilateral 06/11/2023 Pt c/o swimmer's ear type pain at this time. GERD (gastroesophageal reflux disease) Occasional, R/T diet. History of iron deficiency anemia Hypertension Last menstrual period (LMP) > 10 days ago 1995 Motion sickness Osteoarthritis Proteinuria Past Surgical History: Procedure Laterality Date BREAST BIOPSY Right 2015 Benign BREAST BIOPSY Left 2008 Benign ECTOPIC SURGERY 1975 HYSTERECTOMY 1995 TUBAL LIGATION 1981 Medications Prior to Admission Medication Sig Dispense [...] III (HCC) DM2 (diabetes mellitus, type 2) ([facility]) Ear pain, bilateral 06/11/2023 Pt [...] SURGERY 1976 HYSTERECTOMY 1995 TUBAL LIGATION 1981 Medications Prior to Admission Medication Sig Dispense [...] tablet 20 mg, 20 mg, oral, Nightly, Dahlia Mendez PA calcitRIOL (ROCALTROL) capsule 0.25 mcg, [...] injection 0-4 Units, 0-4 Units, subcutaneous, Nightly, Trudy Cuello PA insulin lispro (HumaLOG, ADMELOG) [...] 5 mg, 5 mg, intravenous, Q6H PRN, Dahlai Mendez PA senna-docusate (PERICOLACE) 8.6-50 mg per [...] words.? Bernardino Bahena MD 6:47 PM 07/01/2023 [facility] Hospitalist Group documented in this encounter Nursing [...] Diabetes will improve Outcome: Progressing Flowsheets (Taken 07/03/2023 0700) Ability to describe self care measures that [...] Assessment Interview Note Information Obtained From: Patient (07/02/23 1631) Admission Source: Scheduled surgery Impression: Right knee replacement with Dr. Kamar Gandara Plan Includes: PT/OT to eval and treat; discharge is pending therapy and pain tolerance. Primary Source of Transportation: Does the patient need discharge transport arranged?: No (07/02/23 1631) Health Insurance Coverage: Primary Coverage Payor Plan Insurance Group Employer/Plan Group [employer] [id number] Payor Plan Address Payor Plan Phone Number Payor Plan Fax Number Effective Dates [address] [address] 04/24/2023 - None Entered [facility] [address] Subscriber Name Subscriber Date Member ID LINDSAY PEDERSEN [id number] Secondary Coverage Payor Plan Insurance Group Employer/Plan Group IDPA IDPA [id number] Payor Plan Address Payor Plan Phone Number Payor Plan Fax Number Effective Dates [address] [address] 09/21/2021 - None Entered [facility] [phone] Subscriber Name Subscriber Date Member ID LINDSAY PEDERSEN 1955 [id number] Pharmacy: [facility] [address] [place] [address] - [address] [facility] [address] [address] [address] [facility] [address] Primary Care Provider: Fidencio French MD Prior [...] a week How often do you attend adventism or denominational services?: More than 4 times per year Do you belong to any clubs or organizations such as adventism groups, unions, fraternal or athletic groups, or school groups?: No How often do you attend meetings of the clubs or organizations you belong to?: Never Are you , , , , never , or living with a partner?: Patient declined (07/02/23 1632) Food Insecurity: Within the past 12 months, you worried that your food would run out before you got the money to buymore.: Never true Within the past 12 months, the food you bought just didn't last and you didn't have money to get more.: Never true (07/02/23 1633) Potential discharge needs include: Home Health: care home, Physical therapy (07/02/23 163) Behavioral Health Services: Behavioral Health Services: No (07/02/23 163) Patient expects to be Discharged to: Half-Way Facility, (07/02/23 163) Additional Information: financial services specialist met with patient at bedside to discuss discharge planning. Patient placed her daughter, Maria Elena, on speakerphone while IRONING PLEATER was in the room. Patient stated that she plans to go to rehab at discharge. IRONING PLEATER explained insurance coverage and provided Skilled NursingFacility (SNF) list of in-network facilities. Maria Elena asked about [facility]. IRONING PLEATER explainedthat patient does not meet criteria to go to an acute rehab and that insurance would not approve her to do so. IRONING PLEATER encouraged patient to choose multiple places so that a back up plan could be in place if their first choice is unable to accept. Patient reviewed list and chose [facility] and asked that IRONING PLEATER follow up for second choice after patient and Maria Elena have time to review the list. Referrals sent via [facility]. IRONING PLEATER received call from Maria Elena. Maria Elena stated that she would like IRONING PLEATER to check with [facility]. IRONING PLEATER stated that referral would be sent. IRONING PLEATER notified that [facility] ([facility]) does not havebed availability at this time. Maria Elena asked why [facility] was on the list if they cannot go there. IRONING PLEATER stated that [facility] was listed because it was in-network with patient's insurance & that the list does n ot reflect bed availability - only what is in network with patient's insurance. IRONING PLEATER met with patient at bedside twice. IRONING PLEATER explained to patient multiple times that [facility] nor [facility] have bed availability at this time but IRONING PLEATER could check again tomorrow if patient is ready for discharge at that time. Patient stated, I was told in the class that if I didn't feel like going then I could just ask and stay here. IRONING PLEATER stated that patient needs a medical reason to stay in the hospital and that staying her until the facility of her choice had a bed available was not an option. Patient stated, I shouldn't have to go to a place I don't want to or isn't highly rated. IRONING PLEATER voiced understanding and tried to address patient's concerns. Patient again asked if [facility] was accepting. IRONING PLEATER again stated that they do not have beds available at this time. Patient asked about [facility]. IRONING PLEATER confirmed that [facility] could accept as the dental financial coordinator for [facility] had asked if patient would be interested in [facility]. Patient stated that she would like totalk to the admission person to further understand the facility. IRONING PLEATER offered to contact Jailyn in admissions to come speak with the patient. Patient was agreeable. IRONING PLEATER spoke with Jailyn who stated that she would meet with patient first thing tomorrow morning. Patient will require authorization though [employer] [facility] Medicare. Patient's Identified Problem/Goal Problem: Ensure acute [...] Collaboration with patient, MD, direct care nurse, Manager Construction, and other members of the health care team to assure needed interventions completed. 2. Return patient to optimal level of self-care post discharge. 3. Manager Mortgage will follow for Discharge Planning - interventions [...] falls will improve Outcome: Progressing Flowsheets (Taken 07/02/2023699) Ability to state ways to decrease the [...] Teach risks of complications of diabetes * ECIN Note - Eufemia Lim LCSW - 07/02/2023 12:25 PM CDT Images from the original note were not included. Patient Information: OT Eval and Treat Last 72 Hours OT Evaluation Row Name 07/02/23 0900 Chart Reviewed Yes - Session Type [...] foot swelling. BHATIA of materials to don bone puller shirt. SUP to stand and complete [...] Single point cane - Home ADL Equipment-Available Aerobics Instructor - Home ADL Equipment-Currently Using -- n/a - Additional Comments Pt lives at home alone, however plans to DC to [facility] home. [facility] home is 1 story home with tub/shower chair, standard toilet seat. IND with adls, iadls, ambulating with cane. 1 fallin the last 6 mo - Level of Parke Independent with ADLs;Independent functional transfers;Independent with ambulation;Needs assistance with homemaking assistance for laundry and house maintanence - Lives With Alone - Receives Help From Family - Driving Yes - ADL Assistance Independent - Instrumental ADL (IADL) Assistance Needs assistance -KH Fall within the last 6 months Yes - Fall within the last 6 months comment 1 - Pain Assessment 0-10 - Pain Score 6 - Pain Location Knee - Pain Orientation Right - Endurance Tolerates less than 10 min activity no significant change in vital signs -KH Arousal/Alertness Alert - Attention Span Appears intact [...] Plan of care initiated - OT Recommendation Half-Way Facility - Recommend SNF due to Risk [...] - OT - OK to Discharge No - OT Evaluation Complete Yes -KH User Benites (r) = Recorded By, (t) = Taken By, (c) = Cosigned By Initials Name Effective Dates Daija Macias, OT 05/08/23 - OT Treatment No documentation. OT Notes 07/02/2023 11:36 AM Progress Notes signed by Daija Pandey, OT , PT Eval and Treat Last [...] No - Physical Therapy-Patient Goal return to PLOF - Precautions Bed/Chair Alarm;Fall risk - Weight [...] Using Single point cane - Level of [place] Independent with ADLs;Independent functional transfers;Independent with ambulation [...] Deficits;Due to pain - LLE Assessment WFL - Safe Environment End of Therapy Session [...] this the discharge summary - PT Recommendation/Plan Half-Way Facility - Patient at high risk for Falls - Recommend SNF due to Skilled therapy needed to address functional deficits - PT Recommendation/Plan Comments -- depending on progress, may progress to home with home health - PT Frequency during current admission Twice a day;5-7x/wk;Other (comment) twice a day Mon-Fri, 1-2x/day Sat-[place] - Treatment/Interventions during current admission Balance Training;Bed mobility;Endurance training;Functional activity;Functional transfer training;Gait training;Range of motion;Stair training;Strengthening;Therapeutic activity;Therapeutic exercise;Transfer training - PT Equipment Recommended Wheeled walker - PT Evaluation Complete Yes - User Benites (r) = Recorded By, (t) = Taken By, (c) = Cosigned By Initials Name Effective Dates Amarilis Cid, PT 10/30/22 - PT TREATMENT (last 168 [...] 07/02/23 0659 07/02/23 0700 - 07/03/23 0659 [id number] 5735-3878 Total 9136-6077 7009-3205 5085-6853 Total Intake (ml) 500 -- 1860 2360 601 -- -- 601 Output (ml) 400 739 528 3235 -- -- -- -- Net (ml) 100 [...] ALMA ALMA ALMA ALMA Karina-wound Assessment Dry;Intact AMLA ALMA ALMA ALMA Closure Unable to assess [...] Tavo wrap;Other (Comment) Webril, silver mepilex Tavo wrap;Other(Comment) Webril, silver mepilex Row Name 07/01/23 1411 [...] History of Falling 25 ............filed at 07/02/2023 0710 Secondary Diagnosis 15 ............filed at 07/02/2023 0710 Ambulatory Aids 15 ............filed at 07/02/2023 07 Intravenous Therapy/Heparin/Saline Lock 20 ............filed at 07/02/2023 0710 Gait/Transferring 10 ............filed at 07/02/2023 0710 Mental Status 0 ............filed at 07/02/2023709 Adams Fall Risk Score 85 ............filed at 07/02/2023709 Vital Signs 06/30 0659 07/01 0707/01 1225 Most Recent Temp [...] 920 Chair 07/01 899 Resting in bed 07/02 715 Resting in bed 07/01 07 [...] 07/01 920 Moderate assist, patient does 50-74% 07/02 715 Moderate assist, patient does 50-74% [...] the chair) 07/02 715 Turn self;Semi-fowlers 07/01 699 Supine;Turn self 07/01 06 Semi-fowlers;Supine 07/01 0400 Semi-fowlers;Supine;Refused by patient/family 07/01 0200 Supine;Pillow support 04/10 0000 Left Side;Pillow support 06/30 2200 Semi-fowlers;Supine;Refused [...] 06/30 1440 HOB < 20 Heels/Feet 07/01 0821 Other (Comment) (Comment: feet on floor) 07/01 [...] 2000 Active;All extremities Type of Device 07/01 0700 Mechanical compression 06/30 1510 Mechanical compression 06/30 [...] Recent Administrations meclizine (ANTIVERT) tablet 25 mg [[id number]] Ordering Provider: Carlos Becerril DO Status: Completed (Past End Date/Time) Ordered On: 07/01/231044 Starts/Ends: 07/01/231129 - 07/01/23 112 Ordered Dose (Remaining/Total): 25 mg (0/1) Route: oral Frequency: Once Ordered Rate/Order Duration: -- / -- Timestamps Action Dose Route Other Information 07/01/231127 Given 25 mg oral Performed by: Brianne Brice RN Scanned Package: 25913-269-73 meloxicam (MOBIC) tablet 15 mg [[id number]] Ordering Provider: Kamar Gandara DO Status: Completed (Past End Date/Time) Ordered On: 07/01/231044 Starts/Ends: 07/01/231129 - 07/01/23 112 Ordered Dose (Remaining/Total): 15 mg (0/1) Route: oral Frequency: Once Ordered Rate/Order Duration: -- / -- Timestamps Action Dose Route Other Information 07/01/231127 Given 15 mg oral Performed by: Brianne Brice RN Scanned Package: 28204-538-59, 52545-466-53 oxyCODONE ER (OxyCONTIN) extended release tablet 10 mg [[id number]] Ordering Provider: Kamar Gandara DO Status: Completed [...] Performed by: Brianne Brice RN Scanned Package: 69697-782-61 ceFAZolin (ANCEF) 2,000 mg/20 mL in sterile water (premix) 2,000 mg [[id number]] Ordering Provider: Kamar Gandara DO Status: Completed (Past End Date/Time) Ordered On: 07/01/23 1045 Starts/Ends: 07/01/23 1130 - 07/01/23 1250 Ordered Dose (Remaining/Total): 2,000 mg (0/1) Route: intravenous Frequency: Once Ordered Rate/Order Duration: 400 mL/hr / 3 Minutes Admin Instructions: Administer within 60 minutes of incision. Timestamps Action Dose Route Other Information 07/01/23 1250 Given 2,000 mg intravenous Performed by: Marisela Nance CRNA acetaminophen (TYLENOL) tablet 975 mg [[id number]] Ordering Provider: Dorota Castelan NP Status: Completed (Past End Date/Time) Ordered On: 07/01/23 1045 Starts/Ends: 07/01/23 113 - 07/01/23 1128 Ordered Dose (Remaining/Total): 975 mg (0/1) Route: oral Frequency: Once Ordered Rate/Order Duration: -- / -- Timestamps Action Dose Route Other Information 07/01/23 112 Given 975 mg oral Performed by: Brianne Brice RN Scanned Package: 7588-9203-41, 6951-1625-22, 5357-2706-56 famotidine (PEPCID) tablet 20 mg [[id number]] Ordering Provider: Dorota Castelan NP Status: Completed (Past End Date/Time) Ordered On: 07/01/23 1045 Starts/Ends: 07/01/23 113 - 07/01/23 1128 Ordered Dose (Remaining/Total): 20 mg (0/1) Route: oral Frequency: Once Ordered Rate/Order Duration: -- / -- Timestamps Action Dose Route Other Information 07/01/23 112 Given 20 mg oral Performed by: Brianne Brice RN Scanned Package: 14681-638-49 metoclopramide (REGLAN) tablet 10 mg [[id number]] Ordering Provider: Carlos Becerril DO Status: Completed (Past End Date/Time) Ordered On: 07/01/23 1046 Starts/Ends: 07/01/23 1130 - 07/01/23 1128 Ordered Dose (Remaining/Total): 10 mg (0/1) Route: oral Frequency: Once Ordered Rate/Order Duration: -- / -- Timestamps Action Dose Route Other Information 07/01/23 1128 Given 10 mg oral Performed by: Brianne Brice RN Scanned Package: 83084-009-00 amLODIPine (NORVASC) tablet 10 mg [[id number]] Ordering Provider: Dahlia Mendez PA Status: Dispensed Ordered On: 07/01/23 153 Start: 07/02/23 0900 Ordered Dose (Remaining/Total): 10 mg (--/--) Route: oral Frequency: Daily Ordered Rate/Order Duration: -- / -- Timestamps Action Dose Route Other Information 07/02/23 0822 Given 10 mg oral Performed by: Rut Bartlett RN Scanned Package: 25272-845-14 atorvastatin (LIPITOR) tablet 20 mg [[id number]] Ordering Provider: Dahlia Mendez PA Status: Dispensed Ordered On: 07/01/231534 Start: 07/01/23 2100 Ordered Dose (Remaining/Total): 20 mg (--/--) Route: oral Frequency: Nightly Ordered Rate/Order Duration: -- / -- Timestamps Action Dose Route Other Information 07/01/23 2107 Given 20 mg oral Performed by: Carlita Irby RN Scanned Package: 78556-001-21, 51721-608-19 calcitRIOL (ROCALTROL) capsule 0.25 mcg [[id number]] Ordering Provider: Dahlia Mendez PA Status: Dispensed Ordered On: 07/01/231534 Start: 07/01/23 1615 Ordered Dose (Remaining/Total): 0.25 mcg (--/--) Route: oral Frequency: Daily Ordered Rate/Order Duration: -- / -- Timestamps Action Dose Route Other Information 07/02/23 0837 Given 0.25 mcg oral Performed by: Rut Bartlett RN Scanned Package: 73989-666-79 losartan (COZAAR) tablet 100 mg [[id number]] On hold since yesterday at 1837 until manually unheld; held by Bernardino Bahena MDHold Reason: Change in Patient Status Ordering Provider: Dahlia Mendez PA Status: Verified Ordered On: 07/01/231534 Start: 07/02/23899 Ordered Dose (Remaining/Total): 100 mg (--/--) Route: oral Frequency: Daily Ordered Rate/Order Duration: -- / -- (No admins scheduled or recorded for this medication) apixaban (ELIQUIS) tablet 2.5 mg [[id number]] Ordering Provider: Dahlia Mendez PA Status: Dispensed [...] Performed by: Rut Bartlett RN Scanned Package: 0051-1571-86 sodium chloride 0.9% flush 0.5-20 mL [[id number]] Ordering Provider: Dahlia Mendez PA Status: Verified Ordered On: 07/01/231534 Start: 07/01/231614 Ordered Dose (Remaining/Total): 0.5-20 mL (--/--) Route: intra-catheter Frequency: Every 8 hours scheduled Ordered Rate/Order Duration: -- / -- Admin Instructions: Flush volume based on line type and size. Timestamps Action Dose Route Other Information 07/01/232107 Given 10 mL intra-catheter Performed by: Carlita Irby RN Scanned Package: [id number] sodium chloride 0.9% flush 0.5-20 mL [[id number]] Ordering Provider: Dahlia Mendez PA Status: Verified Ordered On: 07/01/231534 Start: 07/01/231534 Ordered Dose (Remaining/Total): 0.5-20 mL (--/--) Route: intra-catheter Frequency: As needed Ordered Rate/Order Duration: -- / -- Admin Instructions: Flush volume based on line type and size. Flush before and after each use. (No admins scheduled or recorded for this medication) oxyCODONE (ROXICODONE) tablet 5 mg [[id number]] Ordering Provider: Dahlia Mendez PA Status: Dispensed Ordered On: 07/01/231534 Start: 07/01/231534 Ordered Dose (Remaining/Total): 5 mg (--/--) Route: oral Frequency: Every 4 hours PRN Ordered Rate/Order Duration: -- / -- Admin Instructions: May repeat in 1 hour if pain is uncontrolled or increasing. Max 2 doses within 1 dosing interval. Timestamps Action Dose Route Other Information 07/02/23 103 Given 5 mg oral Performed by: Rut Bartlett RN Scanned Package: 45429-927-58 ondansetron (ZOFRAN) injection 4 mg [[id number]] Ordering Provider: Dahlia Mendez PA Status: Verified Ordered On: 07/01/231534 Start: 07/01/231534 Ordered Dose (Remaining/Total): 4 mg (--/--) Route: intravenous Frequency: Every 6 hours PRN Ordered Rate/Order Duration: -- / 2 Minutes Admin Instructions: Proceed to prochlorperazine if no relief within 30 minutes. (No admins scheduled or recorded for this medication) prochlorperazine (COMPAZINE) injection 5 mg [[id number]] Ordering Provider: Dahlia Mendez PA Status: Verified Ordered On: 07/01/231534 Start: 07/01/231534 Ordered Dose (Remaining/Total): 5 mg (--/--) Route: intravenous Frequency: Every 6 hours PRN Ordered Rate/Order Duration: -- / 2 Minutes Admin Instructions: If not relieved by ondansetron within 30 minutes. (No admins scheduled or recorded for this medication) polyethylene glycol (MIRALAX) packet 17 g [[id number]] Ordering Provider: Dahlia Mendez PA Status: Dispensed Ordered On: 07/01/231534 Start: 07/01/231614 Ordered Dose (Remaining/Total): 17 g (--/--) Route: oral Frequency: Daily Ordered Rate/Order Duration: -- / -- Admin Instructions: Hold for diarrhea. Timestamps Action Dose Route Other Information 07/02/23 0821 Given 17 g oral Performed by: Rut Bartlett RN Scanned Package: 88808-863-41 ceFAZolin (ANCEF) 2,000 mg/20 mL in sterile water (premix) 2,000 mg [[id number]] Ordering Provider: Dahlia Mendez PA Status: Completed [...] Performed by: Carlita Irby RN Scanned Package: [address]-3, [address]-9, 9799-9617-04 HYDROmorphone (DILAUDID) injection 0.2 mg [[id number]] Ordering Provider: Kamar Gandara DO Status: Verified Ordered On: 07/01/231534 Start: 07/01/231534 Ordered Dose (Remaining/Total): 0.2 mg (--/--) Route: intravenous Frequency: Every 4 hours PRN Ordered Rate/Order Duration: -- / 2 Minutes (No admins scheduled or recorded for this medication) morphine injection 3 mg [[id number]] Ordering Provider: Carlos Becerril DO Status: Verified Ordered On: 07/01/231534 Start: 07/01/231534 Ordered Dose (Remaining/Total): 3 mg (--/--) Route: intravenous Frequency: Every 10 min PRN Ordered Rate/Order Duration: -- / 4 Minutes Admin Instructions: Notify Anesthesiologist if total PACU dose reaches 10 mg and pain score 5/10 ormore. (No admins scheduled or recorded for this medication) dextrose (GLUTOSE) 40 % gel 15 g [[id number]] Ordering Provider: Trudy Cuello PA Status: Verified [...] Call MD for each episode of hypoglycemia. BUTTON MAKER AND INSTALLER STATES GLUTOSE-15 CONTAINS GLUCOSE 40% W/W (50% W/V) (No admins scheduled or recorded for this medication) dextrose (D10W) 10% bolus 250 mL [[id number]] Ordering Provider: Trudy Cuello PA Status: Verified [...] hour post treatment. If BG is less [id number] mg/dL, repeat Q15 minute BG checks and treatment. Call MD for each episode of hypoglycemia. (No admins scheduled or recorded for this medication) glucagon injection 1 mg [[id number]] Ordering Provider: Trudy Cuello PA Status: Verified [...] (HumaLOG, ADMELOG) 100 unit/mL injection 0-5 Units [[id number]] Ordering Provider: Trudy Cuello PA Status: Verified Ordered On: 07/01/231799 Start: 07/01/231844 Ordered Dose (Remaining/Total): 0-5 Units (--/--) Route: [...] (HumaLOG, ADMELOG) 100 unit/mL injection 0-4 Units [[id number]] Ordering Provider: Trudy Cuello PA Status: Verified [...] (PERICOLACE) 8.6-50 mg per tablet 1 tablet [[id number]] Ordering Provider: Bernardino Bahena MD Status: Dispensed Ordered On: 07/01/23 1847 Start: 07/01/232099 Ordered Dose (Remaining/Total): 1 tablet (--/--) Route: oral Frequency: 2 times daily Ordered Rate/Order Duration: -- / -- Timestamps Action Dose Route Other Information 07/02/23 0822 Given 1 tablet oral Performed by: Rut Bartlett RN Scanned Package: [id number] * [facility] Note - Eufemia Lim LCSW - 07/02/2023 9:20 AM CDT Images [...] 06/11/23 1026 No risk AMG Intake/Output 07/01/23 07 - 07/02/23 0659 07/02/23 07 - 07/03/23 0659 5595-8169 3900-9563 1578-0503 Total 9459-4603 9732-9556 7074-8023 Total Intake (ml) 500 -- 1860 2360 601 -- -- 601 Output (ml) 400 009 514 6158 -- -- -- -- Net (ml) 100 [...] History of Falling 25 ............filed at 07/02/2023 0710 Secondary Diagnosis 15 ............filed at 07/02/2023709 Ambulatory Aids 15 ............filed at 07/02/2023709 Intravenous Therapy/Heparin/Saline Lock 20 ............filed at 07/02/2023709 Gait/Transferring 10 ............filed at 07/02/2023709 Mental Status 0 ............filed at 07/02/2023709 Adams Fall Risk Score 85 ............filed at 07/02/2023709 Vital Signs 06/30 Most Recent Temp (??C) 36.3 - 37.8 [...] bed 07/01 07 Resting in bed 07/01 0600 Resting in bed 07/01 0400 Resting in bed 07/01 0200 Resting in [...] 2000 Maximum assist, patient does 25-49% Repositioned 04/10 0716 Turn self;Semi-fowlers 07/01 07 Supine;Turn self 07/01 0600 Semi-fowlers;Supine 07/01 0400 Semi-fowlers;Supine;Refused by patient/family 07/01 0200 Supine;Pillow support [...] 06/30 1536 Bilateral Mechanical Compression Type 07/01 699 Foot pump 07/01 1999 Foot pump 06/30 1536 Foot pump Mechanical Compression Status 07/01 699 On 07/01 1999 On 06/30 1536 On , Meds and Admin Active Only All Meds/Most Recent Administrations meclizine (ANTIVERT) tablet 25 mg [[id number]] Ordering Provider: Carlos Becerril DO Status: Completed (Past End Date/Time) Ordered On: 07/01/231044 Starts/Ends: 07/01/231129 - 07/01/23 112 Ordered Dose (Remaining/Total): 25 mg (0/1) Route: oral Frequency: Once Ordered Rate/Order Duration: -- / -- Timestamps Action Dose Route Other Information 07/01/231127 Given 25 mg oral Performed by: Brianne Brice RN Scanned Package: 56470-463-58 meloxicam (MOBIC) tablet 15 mg [[id number]] Ordering Provider: Kamar Gandara DO Status: Completed (Past End Date/Time) Ordered On: 07/01/231044 Starts/Ends: 07/01/231129 - 07/01/23 112 Ordered Dose (Remaining/Total): 15 mg (0/1) Route: oral Frequency: Once Ordered Rate/Order Duration: -- / -- Timestamps Action Dose Route Other Information 07/01/231127 Given 15 mg oral Performed by: Brianne Brice RN Scanned Package: 74171-996-47, 39049-955-19 oxyCODONE ER (OxyCONTIN) extended release tablet 10 mg [[id number]] Ordering Provider: Kamar Gandara DO Status: Completed (Past End Date/Time) Ordered On: 07/01/231044 Starts/Ends: 07/01/231129 - 07/01/231127 Ordered Dose (Remaining/Total): 10 mg (0/1) Route: oral Frequency: Once Ordered Rate/Order Duration: -- / -- Admin Instructions: Do not crush, chew, cut, dissolve, open or otherwise manipulate tablet/capsule. Timestamps Action Dose Route Other Information 07/01/231127 Given 10 mg oral Performed by: Brianne Brice RN Scanned Package: 95553-449-82 ceFAZolin (ANCEF) 2,000 mg/20 mL in sterile water (premix) 2,000 mg [[id number]] Ordering Provider: Kamar Gandara DO Status: Completed (Past End Date/Time) Ordered On: 04/09/24 1045 Starts/Ends: 07/01/23 1130 - 07/01/23 1250 Ordered Dose (Remaining/Total): 2,000 mg (0/1) Route: intravenous Frequency: Once Ordered Rate/Order Duration: 400 mL/hr / 3 Minutes Admin Instructions: Administer within 60 minutes of incision. Timestamps Action Dose Route Other Information 07/01/23 1250 Given 2,000 mg intravenous Performed by: Marisela Nance CRNA acetaminophen (TYLENOL) tablet 975 mg [[id number]] Ordering Provider: Dorota Castelan NP Status: Completed (Past End Date/Time) Ordered On: 07/01/23 104 Starts/Ends: 07/01/23 113 - 07/01/23 112 Ordered Dose (Remaining/Total): 975 mg (0/1) Route: oral Frequency: Once Ordered Rate/Order Duration: -- / -- Timestamps Action Dose Route Other Information 07/01/23 112 Given 975 mg oral Performed by: Brianne Brice RN Scanned Package: 7214-9161-68, 2177-3255-47, 9333-2080-39 famotidine (PEPCID) tablet 20 mg [[id number]] Ordering Provider: Dorota Castelan NP Status: Completed (Past End Date/Time) Ordered On: 07/01/231044 Starts/Ends: 07/01/231129 - 07/01/23 1128 Ordered Dose (Remaining/Total): 20 mg (0/1) Route: oral Frequency: Once Ordered Rate/Order Duration: -- / -- Timestamps Action Dose Route Other Information 07/01/23 112 Given 20 mg oral Performed by: Brianne Brice RN Scanned Package: 80581-590-85 metoclopramide (REGLAN) tablet 10 mg [[id number]] Ordering Provider: Carlos Becerril DO Status: Completed (Past End Date/Time) Ordered On: 07/01/23 104 Starts/Ends: 07/01/23 113 - 07/01/23 1128 Ordered Dose (Remaining/Total): 10 mg (0/1) Route: oral Frequency: Once Ordered Rate/Order Duration: -- / -- Timestamps Action Dose Route Other Information 07/01/23 1128 Given 10 mg oral Performed by: Brianne Brice RN Scanned Package: 13718-040-34 amLODIPine (NORVASC) tablet 10 mg [[id number]] Ordering Provider: Dahlia Mendez PA Status: Dispensed Ordered On: 07/01/231534 Start: 07/02/23 0900 Ordered Dose (Remaining/Total): 10 mg (--/--) Route: oral Frequency: Daily Ordered Rate/Order Duration: -- / -- Timestamps Action Dose Route Other Information 07/02/23 0822 Given 10 mg oral Performed by: Rut Bartlett RN Scanned Package: 16598-223-62 atorvastatin (LIPITOR) tablet 20 mg [[id number]] Ordering Provider: Dahlia Mendez PA Status: Dispensed Ordered On: 07/01/231534 Start: 07/01/23 2100 Ordered Dose (Remaining/Total): 20 mg (--/--) Route: oral Frequency: Nightly Ordered Rate/Order Duration: -- / -- Timestamps Action Dose Route Other Information 07/01/23 210 Given 20 mg oral Performed by: Carlita Irby RN Scanned Package: 52104-977-78, 19638-152-07 calcitRIOL (ROCALTROL) capsule 0.25 mcg [[id number]] Ordering Provider: Dahlia Mendez PA Status: Dispensed Ordered On: 07/01/231534 Start: 07/01/23 1615 Ordered Dose (Remaining/Total): 0.25 mcg (--/--) Route: oral Frequency: Daily Ordered Rate/Order Duration: -- / -- Timestamps Action Dose Route Other Information 07/02/23 0837 Given 0.25 mcg oral Performed by: Rut Bartlett RN Scanned Package: 03964-620-74 losartan (COZAAR) tablet 100 mg [[id number]] On hold since yesterday at 1837 until manually unheld; held by Bernardino Bahena MDHold Reason: Change in Patient Status Ordering Provider: Dahlia Mendez PA Status: Verified Ordered On: 07/01/231534 Start: 07/02/23899 Ordered Dose (Remaining/Total): 100 mg (--/--) Route: oral Frequency: Daily Ordered Rate/Order Duration: -- / -- (No admins scheduled or recorded for this medication) apixaban (ELIQUIS) tablet 2.5 mg [[id number]] Ordering Provider: Dahlia Mendez PA Status: Dispensed [...] Performed by: Rut Bartlett RN Scanned Package: 5832-2233-07 sodium chloride 0.9% flush 0.5-20 mL [[id number]] Ordering Provider: Dahlia Mendez PA Status: Verified Ordered On: 07/01/231534 Start: 07/01/231614 Ordered Dose (Remaining/Total): 0.5-20 mL (--/--) Route: intra-catheter Frequency: Every 8 hours scheduled Ordered Rate/Order Duration: -- / -- Admin Instructions: Flush volume based on line type and size. Timestamps Action Dose Route Other Information 07/01/232107 Given 10 mL intra-catheter Performed by: Carlita Irby RN Scanned Package: [id number] sodium chloride 0.9% flush 0.5-20 mL [[id number]] Ordering Provider: Dahlia Mendez PA Status: Verified Ordered On: 07/01/231534 Start: 07/01/231534 Ordered Dose (Remaining/Total): 0.5-20 mL (--/--) Route: intra-catheter Frequency: As needed Ordered Rate/Order Duration: -- / -- Admin Instructions: Flush volume based on line type and size. Flush before and after each use. (No admins scheduled or recorded for this medication) oxyCODONE (ROXICODONE) tablet 5 mg [[id number]] Ordering Provider: Dahlia Mendez PA Status: Dispensed [...] Irby RN Comments: right knee Scanned Package: 51872-434-51 ondansetron (ZOFRAN) injection 4 mg [[id number]] Ordering Provider: Dahlia Mendez PA Status: Verified Ordered On: 07/01/231534 Start: 07/01/231534 Ordered Dose (Remaining/Total): 4 mg (--/--) Route: intravenous Frequency: Every 6 hours PRN Ordered Rate/Order Duration: -- / 2 Minutes Admin Instructions: Proceed to prochlorperazine if no relief within 30 minutes. (No admins scheduled or recorded for this medication) prochlorperazine (COMPAZINE) injection 5 mg [[id number]] Ordering Provider: Dahlia Mendez PA Status: Verified Ordered On: 07/01/231534 Start: 07/01/231534 Ordered Dose (Remaining/Total): 5 mg (--/--) Route: intravenous Frequency: Every 6 hours PRN Ordered Rate/Order Duration: -- / 2 Minutes Admin Instructions: If not relieved by ondansetron within 30 minutes. (No admins scheduled or recorded for this medication) polyethylene glycol (MIRALAX) packet 17 g [[id number]] Ordering Provider: Dahlia Mendez PA Status: Dispensed Ordered On: 07/01/231534 Start: 07/01/231614 Ordered Dose (Remaining/Total): 17 g (--/--) Route: oral Frequency: Daily Ordered Rate/Order Duration: -- / -- Admin Instructions: Hold for diarrhea. Timestamps Action Dose Route Other Information 07/02/23 0821 Given 17 g oral Performed by: Rut Bartlett RN Scanned Package: 71155-494-23 ceFAZolin (ANCEF) 2,000 mg/20 mL in sterile water (premix) 2,000 mg [[id number]] Ordering Provider: Dahlia Mendez PA Status: Completed [...] Performed by: Carlita Irby RN Scanned Package: [address]-4, [address]-9, 3251-0621-51 HYDROmorphone (DILAUDID) injection 0.2 mg [[id number]] Ordering Provider: Kamar Gandara DO Status: Verified Ordered On: 07/01/231534 Start: 07/01/231534 Ordered Dose (Remaining/Total): 0.2 mg (--/--) Route: intravenous Frequency: Every 4 hours PRN Ordered Rate/Order Duration: -- / 2 Minutes (No admins scheduled or recorded for this medication) morphine injection 3 mg [[id number]] Ordering Provider: Carlos Becerril DO Status: Verified Ordered On: 07/01/231534 Start: 07/01/231534 Ordered Dose (Remaining/Total): 3 mg (--/--) Route: intravenous Frequency: Every 10 min PRN Ordered Rate/Order Duration: -- / 4 Minutes Admin Instructions: Notify Anesthesiologist if total PACU dose reaches 10 mg and pain score 5/10 ormore. (No admins scheduled or recorded for this medication) dextrose (GLUTOSE) 40 % gel 15 g [[id number]] Ordering Provider: Trudy Cuello PA Status: Verified [...] Call MD for each episode of hypoglycemia. BUTTON MAKER AND INSTALLER STATES GLUTOSE-15 CONTAINS GLUCOSE 40% W/W (50% W/V) (No admins scheduled or recorded for this medication) dextrose (D10W) 10% bolus 250 mL [[id number]] Ordering Provider: Trudy Cuello PA Status: Verified [...] hour post treatment. If BG is less opnc629 mg/dL, repeat Q15 minute BG checks and treatment. Call MD for each episode of hypoglycemia. (No admins scheduled or recorded for this medication) glucagon injection 1 mg [[id number]] Ordering Provider: Trudy Cuello PA Status: Verified [...] (HumaLOG, ADMELOG) 100 unit/mL injection 0-5 Units [[id number]] Ordering Provider: Trudy Cuello PA Status: Verified Ordered On: 07/01/231799 Start: 07/01/231844 Ordered Dose (Remaining/Total): 0-5 Units (--/--) Route: [...] (HumaLOG, ADMELOG) 100 unit/mL injection 0-4 Units [[id number]] Ordering Provider: Trudy Cuello PA Status: Verified [...] (PERICOLACE) 8.6-50 mg per tablet 1 tablet [[id number]] Ordering Provider: Bernardino Bahena MD Status: Dispensed Ordered On: 07/01/23 1847 Start: 07/01/232099 Ordered Dose (Remaining/Total): 1 tablet (--/--) Route: oral Frequency: 2 times daily Ordered Rate/Order Duration: -- / -- Timestamps Action Dose Route Other Information 07/02/23 0822 Given 1 tablet oral Performed by: Rut Bartlett RN Scanned Package: [id number] * Plan of Care - Carlita Irby [...] Attending Surgeon: Kamar Gandara DO Surgical Assistants: Repairer Resistance Welding Machines: Mariah Harrell RN Physician Taxi Proprietor: Dahlia Mendez PA Scrub: Yudith Ron RN; [...] the tibial tray followed by the distal femur. The knee was then again re-trialed and a 5 mm spacer provided excellent stability and full range of motion. This was selected for final poly. The polyethylene liner was appropriately engaged and secured. Tourniquet was released. Hemostasis was obtained. Wound was thoroughly irrigated. Layered closu re was performed with 1. Vicryl and Quill for the capsule, 2-0 Vicryl subcuticular and strata fix with Dermabond glue for skin. Sterile dressings were applied. Patient top procedure well. Transferredto PACU in stable condition. All sponge and counts correct x2. The Physician's Taxi Proprietor's services included preoperative and postoperative assessment and documentation, patient positioning, prep and drape, intraoperative positioning and retraction, closure and postoperative dressing and postoperative orders. This significantly facilitated the procedure, limiting operative time and the associated coexisting morbidities. No other MD assistance was available. Estimated Blood Loss: 100 mL Specimens: No specimen collected in procedure Implants: Implant Name Type Inv. Item Serial No. Dice Spotter Lot No. LRB No. Used Action [employer] Attune Cruciate Retain Cementless Knee Right 5 Narrow Component [id number] - [id number] [employer] Attune Cruciate Retain Cementless Knee Right 5 Narrow Component [id number] [employer] [id number] Right 1 Implanted [employer] Attune Fb Tib Base Sz 4 Por [id number] - [id number] [employer] Attune Fb Tib Base Sz 4 Por [id number] [employer] [id number] Right 1 Implanted [employer] Insert Tibial Knee Fixed Rm Posterior Stabilized Attune 5mm Size 5 Polyethylene [id number] - [id number] [employer] Insert Tibial Knee Fixed Rm Posterior Stabilized Attune 5mm Size 5 Polyethylene [id number] [employer] [id number] Right 1 Implanted Complications: None Condition on Discharge from the operating room was stable Kamar Gandara DO Date: 07/01/2023 Time: 2:23 PM * [...] from the original note were not included. [address] [address] Surgery Reminder Checklist: Please arrive to [facility] Department for scheduled surgeryon 07/01/23 [...] Dairy, Milk Products, Creamer, Red Gatorade or [place] Juice) Nothing by mouth the 2 hours [...] take TYLENOL (ACETAMINOPHEN) as needed for pain. [place] your teeth morning of procedure. Use mouth [...] please call the Admission Testing Center at [phone]. Morning of surgery question/concerns, please call Outpatient Surgery at [phone]. documented in this encounter Plan of Treatment [...] 7 AM CDT 07/03/2023 11:57 AM CDT us Kamar Gandara DO LAB POCT ORDERABLES - DEVICE F inal Result MICHELA SMITH [address] [facility] Department [place] [address] * POCT glucose (07/03/2023 7:34 AM CDT) Glucose, POC 117 70 - 199 mg/dL Glucose comment 1 Use This Result MICHELA SMITH Blood 07/03/2023 7:34 AM CDT 07/03/2023 7:34 AM CDT Kamar Gandara DO LAB POCT ORDERABLES - DEVICE F inal Result MICHELA SMITH [address] [facility] Department [place] [address] * eGFR (07/03/2023 6:01 AM CDT) eGFR [...] ORDERABLES Final Re sult Performing Organization Address [facility] Co de Phone Number [address] [address] * (ABNORMAL) Hemoglobin and hematocrit (07/03/2023 6:01 AM CDT) [facility] Hgb 10.5(L) 11.9 - 15.5 g/dL Hct 32.8(L) 35.6 - 45.5 % [facility] Blood 07/03/2023 6:01 AM CDT 07/03/2023 6:05 AM CDT Dahlia LOYA LAB BLOOD ORDERABLES Final Result Performing Organization Address [facility] de Phone Number [address] [address] * Basic metabolic panel (07/03/2023 6:01 AM CDT) [facility] Sodium 135 135 - 145 mmol/L Potassium, pl 3.9 3.3 - 4.9 mmol/L [facility] Chloride 100 97 - 110 mmol/L [facility] CO2 26 22 - 32 mmol/L [facility] Anion gap 9 2 - 15 mmol/L [facility] BUN 12 6 - 25 mg/dL [facility] Creatinine 0.95 0.60 - 1.10 mg/dL [facility] Glucose 122 70 - 199 mg/dL [facility] Comment: Interpretive Data Fasting glucose >/= [...] 2022. Calcium 8.6 8.5 - 10.3 mg/dL [facility] Blood 07/03/2023 6:01 AM CDT 07/03/2023 6:05 AM CDT Bernardino Bahena MD LAB BLOOD ORDERABLES Final Re sult Performing Organization Address [facility] Co de Phone Number [address] [place] [address] * POCT glucose (07/02/2023 8:57 PM CDT) Glucose, POC 138 70 - 199 mg/dL Glucose comment 1 Use This Result [facility] Glucose comment 2 RN/MD Notified [facility] Blood 07/02/2023 8:57 PM CDT 07/02/2023 8:57 PM CDT Kamar [email or web address] LAB POCT ORDERABLES - DEVICE F inal Result Performing Organization Address [facility] Co de Phone Number [address] [place] [address] * POCT glucose (07/02/2023 4:16 PM CDT) Glucose, POC 116 70 - 199 mg/dL Blood 07/02/2023 4:16 PM CDT 07/02/2023 4:16 PM CDT Kamar [email or web address] LAB POCT ORDERABLES - DEVICE F inal Result Performing Organization Address [facility] Co de Phone Number [address] [place] [address] * POCT glucose (07/02/2023 12:02 PM CDT) Glucose, POC 113 70 - 199 mg/dL Blood 07/02/2023 12:0 2 PM CDT 07/02/2023 12:02 PM CDT us Kamar Martinezdianafabiola DO LAB POCT ORDERABLES - DEVICE F inal Result Performing Organization Address [facility] Co de Phone Number MICHELA [address] [place] [address] * POCT glucose (07/02/2023 7:16 AM CDT) Pathologist [facility] Glucose, POC 118 70 - 199 mg/dL Blood 07/02/2023 7:16 AM CDT 07/02/2023 7:16 AM CDT Kamar Gandara DO LAB POCT ORDERABLES - DEVICE F inal Result Performing Organization Address [facility] de Phone Number MICHELA [address] [address] * (ABNORMAL) eGFR (07/02/2023 5:47 AM CDT) Pathologist [facility] eGFR 44(L) >=60 mL/min/1. 73 m2 Comment: [...] BLOOD ORDERABLES Final Result Performing Organization Address [facility] de Phone Number [address] [place] [address] * (ABNORMAL) Hemoglobin and hematocrit (07/02/2023 5:47 AM CDT) Pathologist [facility] Hgb 11.5(L) 11.9 - 15.5 g/dL Hct 36.1 35.6 - 45.5 % [facility] Blood 07/02/2023 5:47 AM CDT 07/02/2023 6:09 AM CDT Dahlia LOYA LAB BLOOD ORDERABLES Final Result Performing Organization Address [facility] de Phone Number [address] [address] * (ABNORMAL) Basic metabolic panel (07/02/2023 5:47 AM CDT) Pathologist [facility] Sodium 135 135 - 145 mmol/L Potassium, pl 4.5 3.3 - 4.9 mmol/L [facility] Chloride 101 97 - 110 mmol/L [facility] CO2 24 22 - 32 mmol/L [facility] Anion gap 10 2 - 15 mmol/L [facility] BUN 18 6 - 25 mg/dL [facility] Creatinine 1.33(H) 0.60 - 1.10 mg/dL [facility] Glucose 121 70 - 199 mg/dL [facility] Comment: Interpretive Data Fasting glucose >/= [...] 2022. Calcium 9.0 8.5 - 10.3 mg/dL [facility] Blood 07/02/2023 5:47 AM CDT 07/02/2023 6:09 AM CDT Dahlia LOYA LAB BLOOD ORDERABLES Final Result Performing Organization Address [facility] Co de Phone Number [address] [place] [address] * (ABNORMAL) POCT glucose (07/01/2023 8:34 PM CDT) [facility] Glucose, POC 202(H) 70 - 199 mg/dL Glucose comment 1 Use This Result [facility] Glucose comment 2 RN/MD Notified [facility] Blood 07/01/2023 8:34 PM CDT 07/01/2023 8:34 PM CDT Kamar Gandara DO LAB POCT ORDERABLES - DEVICE F inal Result Performing Organization Address [facility] de Phone Number [address] [place] [address] * eGFR (07/01/2023 5:18 PM CDT) Pathologist [facility] [place] eGFR 62 >=60 mL/min/1. 73 m2 Comment: [...] BLOOD ORDERABLES Final Result Performing Organization Address [facility] de Phone Number [address] [place] [address] * Creatinine (07/01/2023 5:18 PM CDT) Creatinine 1.00 0.60 - 1.10 mg/dL Blood 07/01/2023 5:18 PM CDT 07/01/2023 5:25 PM CDT Narrative MICHELA - 07/01/2023 5:55 PM CDT Baseline prior to apixaban initiation. Dahlia LOYA LAB BLOOD ORDERABLES Final Result Performing Organization Address [facility] Co de Phone Number [address] [address] * (ABNORMAL) Hepatic function panel (07/01/2023 5:18 PM CDT) Bilirubin, total 0.2 0.1 - 1.2 mg/dL Bilirubin, direct See Comment 0.1 - 0.3 [facility] Comment:Credited; Hemolyzed Specimen Protein, pl 8.6(H) 6.5 - 8.5 g/dL [facility] Albumin 4.1 3.5 - 5.0 g/dL [facility] Alk phos 93 40 - 130 Units/L [facility] ALT 14 7 - 45 Units/L [facility] AST 23 10 - 45 Units/L [facility] Comment:Hemolyzed; result ma y be falsely elevated Blood 07/01/2023 5:18 PM CDT 07/01/2023 5:25 PM CDT Narrative [facility] - 07/01/2023 6:10 PM CDT Baseline prior to apixaban initiation. us Dahlia LOYA LAB BLOOD ORDERABLES Final Result [place] [id number] [facility] Department of Laboratories [place], [place] [id number] * (ABNORMAL) CBC without differential (07/01/2023 5:18 PM CDT) WBC 17.5(H) 3.8 - 9.9 K/cumm Hgb 12.9 11.9 - 15.5 g/dL [facility] Hct 40.8 35.6 - 45.5 % [facility] Plt 294 150 - 400 K/cumm [facility] MPV 10.8 9.1 - 12.3 fL [facility] RBC 4.85 3.90 - 5.20 M/cumm [facility] MCV 84.1 81.3 - 96.4 fL [facility] MCH 26.6(L) 27.1 - 33.3 pg [facility] MCHC 31.6(L) 32.3 - 35.7 g/dL [facility] RDW CV 16.3(H) 11.1 - 14.9 % [facility] RDW SD 49.8(H) 35.7 - 48.1 fL [facility] NRBC abs 0.00 0.00 - 0.01 K/cumm [facility] Blood 07/01/2023 5:18 PM CDT 07/01/2023 5:25 PM CDT Narrative [facility] - 07/01/2023 5:28 PM CDT Baseline prior to apixaban initiation. Dahlia LOYA LAB BLOOD ORDERABLES Final Result Performing Organization Address [facility] Co de Phone Number [address] [place] [address] * Protime-INR (07/01/2023 5:18 PM CDT) PT 13.2 12.0 - 14.6 sec INR 1.0 0.9 - 1.2 [facility] Comment: Ref Range High Interpretive data Oral anticoagulant therapeutic ranges: Venous thromboembolism prophylaxis or treatment: 2.0-3.0 CARDIOLOGY Standard range: 2.0-3.0 High-intensity range: 2.5-3.5 Refer to indication-specific guidelines for appropriate target ranges for prosthetic heart valve replacement. Current interpretive data was last revised on 2019. Blood 07/01/2023 5:18 PM CDT 07/01/2023 5:25 PM CDT Narrative [facility] - 07/01/2023 5:44 PM CDT Baseline prior to apixaban initiation. Dahlia LOYA LAB BLOOD ORDERABLES Final Result Performing Organization Address [facility] Co de Phone Number [address] [place] [address] * POCT glucose (07/01/2023 3:49 PM CDT) Glucose, POC 118 70 - 199 mg/dL Blood 07/01/2023 3:49 PM CDT 07/01/2023 3:49 PM CDT Kamar Gandara DO LAB POCT ORDERABLES - DEVICE F inal Result Performing Organization Address City/[facility]/ZIP Co de Phone Number [address] [place] [address] * XR Knee Right 1 or 2 [...] D: ??07/01/2023 3:18 PM T: Report ID: [id number] Reading Location: ??[id number] Procedure Note Chris Perez MD - 07/01/2023 [...] 3:18 PM - Electronically signed by Chris Perze M.D. RB T: Report ID: [id number] Reading Location: [id number] Dahlia LOYA IMG XR PROCEDURES Final Re sult * POCT glucose (07/01/2023 2:55 PM CDT) Glucose, POC 101 70 - 199 mg/dL Glucose comment 1 Use This Result MICHELA Blood 07/01/2023 2:55 PM CDT 07/01/2023 2:55 PM CDT Kamar [employer] DO LAB POCT ORDERABLES - DEVICE F inal Result Performing Organization Address [facility] Co de Phone Number [address] [place] [address] * POCT glucose (07/01/2023 11:41 AM CDT) Glucose, POC 82 70 - 199 mg/dL Blood 07/01/2023 11:4 1 AM CDT 07/01/2023 11:41 AM CDT Kamar [employer] [facility] POCT ORDERABLES - DEVICE F inal Result Performing Organization Address [facility] de Phone Number [address] [address] * Antibody screen (07/01/2023 11:25 AM CDT) Huang, indirect, Gel Interpretation Negative ABSC Blood 07/01/2023 11:2 5 AM CDT 07/01/2023 11:28 AM CDT Narrative [facility] - 07/01/2023 12:07 PM CDT Has the patient had Daratumumab or Isatuximab in the past 6 months?->Unknown Result [facility] Kamar Gandara [facility] BLOOD BANK TEST ORDERABLES Final Result Performing Organization Address [facility] Co de Phone Number [address] [address] * ABO/Rh (07/01/2023 11:25 AM CDT) ABO/Rh A Positive Blood 07/01/2023 11:2 5 AM CDT 07/01/2023 11:28 AM CDT Narrative MICHELA - 07/01/2023 12:07 PM CDT Has the patient had Daratumumab or Isatuximab in the past 6 months?->Unknown Kamar Nichol PEREZ LAB BLOOD BANK TEST ORDERABLES Final Result MICHELA [address] [facility] Department of Laboratories [place], [place] [id number] documented in this encounter Visit Diagnoses Diagnosis Primary osteoarthritis of right knee- Primary Primary osteoarthritis of right knee S/P total knee arthroplasty, right Arthritis of right knee S/P total knee arthroplasty, right Primary osteoarthritis of right knee documented in this encounter Admitting Diagnoses Diagnosis Primary osteoarthritis of right knee Arthritis of right knee S/P total knee arthroplasty, right documented in this encounter Administered Medications Inactive Administered Medications - up to 3 most recent administrations Medication Order MAR Action Action Date Dose Rate Site amLODIPine (NORVASC) tablet 10 mg 10 mg, [...] Given 07/01/2023 4:28 PM CDT 0.25 mcg dextrose (D10W) 10% bolus 250 mL 250 [...] Call MD for each episode of hypoglycemia. BUTTON MAKER AND INSTALLER STATES GLUTOSE-15 CONTAINS GLUCOSE 40% W/W (50% W/V), Indications: hypoglycemic disorderIndications:hypoglycemic disorder HYDROmorphone (DILAUDID) injection 0.2 mg 0.2 mg, intravenous, Administer over 2 Minutes, Every 4 hours PRN, 3rd line for pain, Starting on Fri07/01/23 at 1535 Given 07/02/2023 5:38 PM CDT 0.2 mg Given 07/02/2023 12:48 PM CDT 0.2 mg oxyCODONE (ROXICODONE) tablet 10 mg 10 mg, oral, Every 4 hours PRN, 1st line for pain, Starting on Fri07/02/23 at 1823, Indications: PainIndications:Pain Given 07/03/2023 11:57 AM CDT 10 mg Given 07/03/2023 7:26 AM CDT 10 mg Given 07/03/2023 12:54 AM CDT 10 mg R ight Knee polyethylene glycol (MIRALAX) packet 17 g 17 [...] within 12 hours or as directed by . Error 05/14/2023 06/11/2023 Linzess 72 mcg capsule [...] Pre-Emptive Analgesia 1128 (Given - Provider: Brianne Brice, RN) amLODIPine (NORVASC) tablet 10 mg 10 mg, oral, Daily, First dose on Fri07/02/23 at 0900 0822 (Given - Provider: Rut Bartlett RN) 08 (Given - Provider: Rut Bartlett, CARMINE) apixaban (ELIQUIS) tablet 2.5 mg 2.5 mg, oral, 2 times daily, First dose on Fri07/02/23 at 0900, Nurse to discontinue heparin infusion order and associated bolus at first administration of apixaban using ? order condition met? order source, Indications: VTE Prophylaxis 08 (Given - Provider: Rut Bartlett RN)2029 (Given - Provider: Carlita Irby, CARMINE) 08 (Given - Provider: Rut Bartlett, CARMINE) atorvastatin (LIPITOR) tablet 20 mg 20 mg, oral, Nightly, First dose on Fri07/01/23 at 2100 2107 (Given - Provider: Carlita Irby, CARMINE) 2029 (Given - Provider: Carlita Irby, CARMINE) calcitRIOL (ROCALTROL) capsule 0.25 mcg 0.25 mcg, oral, Daily, First dose on Fri07/01/23 at 1615 1628 (Given - Provider: Eufemia García, RN) 0837 (Given - Provider: Rut Bartlett RN) 08 (Given - Provider: Rut Bartlett RN) ceFAZolin (ANCEF) 2,000 mg/20 mL in sterile water (premix) 2,000 mg (COMPLETED) 2,000 mg, intravenous, at 400 mL/hr, Administer over 3 Minutes, Once, On Fri07/01/23 at 1130, For 1 dose, Pre-Op, Administer within 60 minutes of incision., Indications: Prophylaxis, Surgical 1250 (Given - Provider: Marisela Nance CRNA) ceFAZolin (ANCEF) 2,000 mg/20 mL in sterile water (premix) 2,000 mg (COMPLETED) 2,000 mg, intravenous, at 400 mL/hr, Administer over 3 Minutes, Every 8 hours, First dose on Fri07/01/23 at 2100, For 2 doses, Beginning 8 hours after last karina-operative dose., Indications: Prophylaxis, Surgical 2103 (Given - Provider: Carlita Irby RN) 444 (Given - Provider: Carlita Irby RN) famotidine (PEPCID) tablet 20 mg (COMPLETED) 20 mg, oral, Once, On Fri07/01/23 at 1130, For 1 dose, Pre-Op, Indications: gastroesophageal reflux disease 1128 (Given - Provider: Brianne Brice RN) insulin lispro (HumaLOG, ADMELOG) 100 unit/mL injection [...] not met)1618 (Not Given - Provider: Rut Bartlett RN [...] since Fri07/01/2023 at 1837 until manually unheld 183 (Held by Provider - Provider: Bernardino Bahena MD - Reason: Change in Patient Status) 0900 (Hold - Provider: Rut Bartlett RN - Reason: See Provider Order) 0900 (Hold - Provider: Rut Bartlett RN - Reason: See Provider Order)1831 (Unheld by Provider - Provider: Automatic Discharge [...] Pain 1128 (Given - Provider: Brianne Brice, RN) polyethylene glycol (MIRALAX) packet 17 g 17 g, oral, Daily, First dose on Fri07/01/23 at 1615, Hold for diarrhea., Indications: constipation 1620 (Not Given - Provider: Eufemia García RN - Reason: Patient/family refused) 0821 (Given - Provider: Rut Bartlett RN) 0805 (Given - Provider: Rut Bartlett [...] Infusing)1424 (Canceled Entry - Provider: Rut Bartlett RN)203 (Given - Provider: Carlita Irby, CARMINE) 0534 (Given - Provider: Carlita Irby RN)1400 (Due) Continuous Medication Order 07/01/2023 07/02/2023 07/03/2023 Lactated Ringer's (LR) infusion (CANCELED) 30 mL/hr, intravenous, Continuous, Starting on Fri07/01/23 at 1130, Pre-Op 1128 (New Bag - Provider: Brianne Brice, CARMINE)1237 (Rate/Dose Verify - Provider: Marisela Nance CRNA)1406 [...] fluids well. 1618 (Restarted - Provider: Eufemia García RN)1919 (New Bag - Provider: Carlita Irby RN) 0446 (New Bag - Provider: Carlita Irby RN)0829 (Stopped - Provider: Rut Bartlett RN) [...] Call MD for each episode of hypoglycemia. BUTTON MAKER AND INSTALLER STATES GLUTOSE-15 CONTAINS GLUCOSE 40% W/W (50% [...] Call MD for each episode of hypoglycemia. BUTTON MAKER AND INSTALLER STATES GLUTOSE-15 CONTAINS GLUCOSE 40% W/W (50% [...] Count Last Ordered Date First Ordered Date oxyCODONE (ROXICODONE) tablet 10 mg 1 07/01 acetaminophen (TYLENOL) tablet 975 mg 1 11/2023 amLODIPine (NORVASC) tablet 10 mg 1 024 apixaban (ELIQUIS) tablet 2.5 mg 1 07/01/19 24 atorvastatin (LIPITOR) tablet 20 mg 1 06/30 calcitRIOL (ROCALTROL) capsule 0.25 mcg 1 0 07/01/2023 ceFAZolin (ANCEF) 2,000 mg/2 0 mL in sterile water (premix) 2,000 mg 2 07/01/2023 dextrose (D10W) 10% bolus 250 mL 07/01/19 24 dextrose (GLUTOSE) 40 % gel 15 g 1 07/01/19 24 docusate sodium (COLACE) capsule 100 mg 1 0 07/01/2023 famotidine (PEPCID) tablet 20 mg 1 07/01/19 fentaNYL (SUBLIMAZE) preserv ative free injection 50 mcg 1 07/01/2023 glucagon injection 1 mg 1 07/01/2023 hydrALAZINE (APRESOLINE) injection 5 mg 1 0 07/01/2023 HYDROmorphone (DILAUDID) injection 0.2 mg 1 07/01/2023 insulin lispro (HumaLOG, ADM ELOG) 100 unit/mL injection 0-4 Units 1 07/01/2023 insulin lispro (HumaLOG, ADM ELOG) 100 unit/mL injection 0-5 Units 1 07/01/2023 labetaloL (NORMODYNE,TRANDAT E) injection 5 mg 1 07/01/2023 Lactated Ringer's (LR) infusion 2 lidocaine (XYLOCAINE) 10 mg/ mL (1 %) injection 2-10 mg 1 07/01/2023 losartan (COZAAR) tablet 100 mg 1 meclizine (ANTIVERT) tablet 25 mg 1 024 meloxicam (MOBIC) tablet 15 mg 1 07/01/2023 meperidine (DEMEROL) preserv ative free injection 12.5 mg 1 07/01/2023 metoclopramide (REGLAN) 5 mg /mL injection 10 mg 1 07/01/2023 metoclopramide (REGLAN) tablet 10 mg 11/2023 morphine injection 3 mg 1 07/01/2023 naloxone (NARCAN) 0.4 mg/mL injection 0.04-0.4 mg 1 07/01/2023 ondansetron (ZOFRAN) injection 4 mg 2 06/30 oxyCODONE (ROXICODONE) tablet 5 mg 2023 oxyCODONE ER (OxyCONTIN) ext ended release tablet 10 mg 1 07/01/2023 polyethylene glycol (MIRALAX) packet 17 g 1 07/01/2023 prochlorperazine (COMPAZINE) injection 5 mg 1 07/01/2023 senna-docusate (PERICOLACE) 8.6-50 mg per tablet 1 tablet 1 07/01/2023 sodium chloride 0.9% flush 0.5-20 mL 2 11/2023 tranexamic acid (CYKLOKAPRON ) 1,000 mg/10 mL (100 mg/mL) solution 2,000 mg 1 07/01/2023 Lab Orders Without Results Count Last Ordered D ate First Ordered Date POCT GLUCOSE DEVICE 15 07/03/2023 07/01/19 General Supply Count Last Ordered Date First [...] 07/03/2023 documented in this encounter Care Teams Loss Prevention Guard Relationship Specialty Start Date End Date Fidencio French MD [address] [place] [id number] PCP - General Internal Medicine 06/12/22 Dahlia Mendez PA [address] [facility] [address] [address] Orthopedic Surgery 07/01/23 documented as of this encounter
--- OUTSIDE RECORDS SUMMARY | 2024-03-23 01:49 | XMS_ITS | Encounter Summary ---
Author Organization [facility] Address [address] [place] [address] Phone Care Team Providers Care Belt Worker Name Role Phone Fidencio French MD Primary Care Provider [phone] Dahlia Mendez Unavailable [phone] Reason for Referral * Diagnostic Imaging (Routine) - Closed Specialty Diagnoses / Procedures Referred By Kirt carvalho Referred To Contact Diagnoses Encounter for screening mammogram for malignant neoplasm of breast Procedures Screening Mammogram Bilateral W Prem Jody Durán NP Phone: tel: fax: [address] [address] Referral ID Status Reason Start Date Expiration Date Visits Re quested Visits Authorized [id number] Closed 08/06/2023 09/04/2024 1 1 Encounter Details Date Type Department Care Team (Late st Contact Info) Description 08/06/2023 Orders Only [facility] Surgery [address] [facility] 5th [place] [address] [place] [address] Jody Durán NP [address] [place] [address] Encounter for screening mammogram for malignant neoplasm of breast (Primary Dx) Social History Tobacco Use Types Packs/Day Years Used Date Smoking Tobacco: Never Passive Smoke Exposure: Past Smokeless Tobacco: Never Alcohol Use Standard Drinks/Week Comments No 0 (1 standard drink = 0.6 oz pur e alcohol) [facility] Utilities Answer Date Recorded In the [...] often do you attend chur ch or adventist services? More than 4 times per year 07/02/2023 Do you belong to any clubs o r organizations such as restorationist groups, unions, fraternal or athletic groups, or [...] place to sleep or slept in a jail (including now)? No 07/02/2023 Personal Safety Answer Date Recorded Have you ever been in or are you currently in a harmful physical or emotional relationship or is someone making you feel afraid or unsafe? 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 ??Views obtained: ??bilateral craniocaudal and bilateral mediolateral oblique. ??Computer Aided Detection was performed. Mammogram Findings: The present examination has been compared to prior imaging studies performed at [facility] on 01/03/2021, 01/09/2022 and 06/19/2022. The breasts [...] compared to prior imaging studies performed at [facility] on 01/03/2021, 01/09/2022 and 06/19/2022. The breasts [...] OVERALL FINAL ASSESSMENT: BI-RADS CATEGORY 1: Negative. Jody Durán QUALITY AUDIT REPRESENTATIVE IMG MAMMO PROCEDURES Fin al Result documented in this encounter Visit Diagnoses Diagnosis Encounter for screening mammogram for malignant neoplasm of breast- Primary Encounter for screening mammogram for malignant neoplasm of breast documented in this encounter Care Teams Belt Worker Relationship Specialty Start Date End Date Fidencio French MD [address] [place] [address] PCP - General Internal Medicine 06/12/22 Dahlia Mendez PA [address] [facility] [address] [address] Orthopedic Surgery 07/01/23 documented as of this encounter
--- OUTSIDE RECORDS SUMMARY | 2024-03-23 01:49 | XMS_ITS | Encounter Summary ---
Author Organization [facility] Healthcare Address [address] [place] [address] Care Team Providers Care Special Education Paraeducator Name Role Phone Fidencio French MD Primary Care Provider [phone] Dahlia Mendez Unavailable [phone] Encounter Details Date Type Department Care Team (Late st Contact Info) Description 08/12/2023 Telephone [facility] Medical Group Orthopedics and Sports Medicine [address] [place] [phone] Kamar Gandara [address] [address] Social History Tobacco Use Types Packs/Day Years Used Date Smoking Tobacco: Never Passive Smoke Exposure: Past Smokeless Tobacco: Never Alcohol Use Standard Drinks/Week Comments No 0 (1 standard drink = 0.6 oz pur e alcohol) [facility] Utilities Answer Date Recorded In the past 12 months has [employer], gas, oil, or water [employer] threatened to shut off services in your [...] week 07/02/2023 How often do you attend [facility] or buddhism services? More than 4 times per year [...] place to sleep or slept in a correction (including now)? No 07/02/2023 Personal Safety Answer Date Recorded Have you ever been in or are you currently in a harmful physical or emotional relationship or is someone making you feel afraid or unsafe? 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 Clarified which medication pt was taking. Verbally accepted. documented in this encounter Plan of Treatment Not on file documented as of this encounter Visit Diagnoses Not on filedocumented in this encounter Care Teams Special Education Paraeducator Relationship Specialty Start Date End Date Fidencio French MD [address] [place] [address] PCP - General Internal Medicine 06/12/22 Dahlia Mendez PA [address] [facility] [address] [address] Orthopedic Surgery 07/01/23 documented as of this encounter
--- OUTSIDE RECORDS SUMMARY | 2024-03-23 01:49 | XMS_ITS | Encounter Summary ---
Author Organization [facility] Healthcare Address [address] [place] [address] Care Team Providers Care Nicu Rn Name Role Phone Fidencio French MD Primary Care Provider [phone] Dahlia Mendez Unavailable [phone] Reason for Visit * Reason Onset Date Comments med refill 08/04/2023 Encounter Details Date Type Department Care Team (Late st Contact Info) Description 08/04/[address] [facility] Medical Group Orthopedics and Sports Medicine [address] [place] [phone] Kamar Gandara DO [address] [place] [id number] med refill Social History Tobacco Use Types Packs/Day Years Used Date Smoking Tobacco: Never Passive Smoke Exposure: Past Smokeless Tobacco: Never Alcohol Use Standard Drinks/Week Comments No 0 (1 standard drink = 0.6 oz pur e alcohol) [facility] Utilities Answer Date Recorded In the past 12 months has [employer], gas, oil, or water company threatened [...] often do you attend chur ch or lutheran services? More than 4 times per year 07/02/2023 Do you belong to any clubs o r organizations such as muslim groups, unions, fraternal or athletic groups, or [...] place to sleep or slept in a senior care (including now)? No 07/02/2023 Personal Safety Answer Date Recorded Have you ever been in or are you currently in a harmful physical or emotional relationship or is someone making you feel afraid or unsafe? 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 THe last script was sent to the wrong pharmacy. [facility] documented in this encounter Plan of Treatment Not on file documented as of this encounter Visit Diagnoses Not on filedocumented in this encounter Care Teams Nicu Rn Relationship Specialty Start Date End Date Fidencio French MD [address] [place] [address] PCP - General Internal Medicine 06/12/22 Dahlia Mendez PA [address] [facility] [place] [address] Orthopedic Surgery 07/01/23 documented as of this encounter
--- OUTSIDE RECORDS SUMMARY | 2024-03-23 01:49 | XMS_ITS | Encounter Summary ---
Author Organization [facility] Healthcare Address [address] [place] [address] Care Team Providers Care Sports Medicine Coordinator Name Role Phone Fidencio French MD Primary Care Provider [phone] Dahlia Mendez Unavailable [phone] Reason for Referral * Diagnostic Imaging (Routine) - Closed Specialty Diagnoses / Procedures Referred By Contac t Referred To Contact Diagnoses S/P total knee arthroplasty, right Procedures XR Knee Right 3 View Dahlia Mendez PA [facility] [address] [place] [address] Phone: tel: fax: [address] [phone] Referral ID Status Reason Start Date Expiration Date Visits Re quested Visits Authorized [id number] Closed 07/09/2023 08/07/2024 1 1 Reason for Visit * Diagnostic Imaging (Routine) - Closed Specialty Diagnoses / Procedures Referred By Contac t Referred To Contact Diagnoses S/P total knee arthroplasty, right Procedures XR Knee Right 3 View Dahlia Mendez PA [facility] [address] [place] [address] Phone: tel: fax: [address] [phone] Referral ID Status Reason Start Date Expiration Date Visits Re quested Visits Authorized [id number] Closed 07/09/2023 08/07/2024 1 1 Encounter Details Date Type Department Care Team (Latest Contact Info) Description 07/16/2023 9:59 AM CDT - 07/16/2023 11:59 PM CDT Hospital Encounter [facility] Diag Imaging [address] [place] [address] S/P total knee arthroplasty, right [...] often do you attend chur ch or orthodox services? 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 05/03/2023 4 documented as of this encounter Discharge Disposition Disposition Code Departure Means Destination Discharge to home or self care documented in this encounter Plan of Treatment Not on file documented as of this encounter Procedures Procedure Name Priority Date/Time Associated Diagnosis Comments XR KNEE RIGHT 3 VIEWS Schedule Routine, Read Routine (OP Routine) 07/16/2023 10:05 AM CDT S/P total knee arthroplasty, right documented in this encounter Results * XR Knee Right 3 View (07/16/2023 10:05 AM CDT) Anatomical Region Laterality Modality Lower Extremities, Knee Right Computed Radiography 07/17/2023 3:02 PM CDT Narrative 07/17/2023 3:03 PM CDT EXAM DESCRIPTION: XR KNEE RIGHT 3 VIEWS REASON FOR STUDY: RIGHT KNEE PAIN ?? Pain and swelling since TKR done 07/01/23 ? FINDINGS: Three views submitted with comparison 07/01/2023. 2 component right knee arthroplasty is in near anatomic alignment. ??There are no fractures or evidence of loosening. ??Moderate-sized knee effusion is present. ??Soft tissue gas is resolving. IMPRESSION: 2 component right knee arthroplasty in near anatomic alignment. THIS IS AN ELECTRONICALLY VERIFIED FINAL REPORT 07/17/2023 3:03 PM - Electronically signed by ??Kwesi Kessler M.D. D: ??07/17/2023 3:03 PM T: Report ID: [id number] Reading Location: ??[id number] Procedure Note Kwesi Kessler MD - 07/17/2023 EXAM DESCRIPTION: XR KNEE RIGHT 3 VIEWS REASON FOR STUDY: RIGHT KNEE PAIN Pain and swelling since TKR done 07/01/23 FINDINGS: Three views submitted with comparison 07/01/2023. 2 component right knee arthroplasty is in near anatomic alignment. Thereare no fractures or evidence of loosening. Moderate-sized knee effusion is present. Soft tissue gas is resolving. IMPRESSION: 2 component right knee arthroplasty in near anatomic alignment. THIS IS AN ELECTRONICALLY VERIFIED FINAL REPORT 07/17/2023 3:03 PM - Electronically signed by Kwesi Kessler M.D. T: Report ID: [id number] Reading Location: [place] [address] Dahlia LOYA IMG XR PROCEDURES Final Re sult documented in this encounter Visit Diagnoses Diagnosis S/P total knee arthroplasty, right documented in this encounter Care Teams Sports Medicine Coordinator Relationship Specialty Start Date End Date Fidencio French MD [address] [place] [address] PCP - General Internal Medicine 06/12/22 Dahlia Mendez PA [address] [facility] [address] [place] [address] Orthopedic Surgery 07/01/23 documented as of this encounter
--- OUTSIDE RECORDS SUMMARY | 2024-03-23 01:49 | XMS_ITS | Encounter Summary ---
Author Organization [facility] Healthcare Address [address] [place] [address] Care Team Providers Care Electrical Engineering Manager Name Role Phone Fidencio French MD Primary Care Provider [phone] Dahlia Mendez Unavailable [phone] Encounter Details Date Type Department Care Team (Late st Contact Info) Description 08/12/[address] [facility] Medical Group Orthopedics and Sports Medicine [address] [place] [phone] Kamar Gandara [address] [address] Social History Tobacco Use Types Packs/Day Years Used Date Smoking Tobacco: Never Passive Smoke Exposure: Past Smokeless Tobacco: Never Alcohol Use Standard Drinks/Week Comments No 0 (1 standard drink = 0.6 oz pur e alcohol) [facility] Utilities Answer Date Recorded In the past 12 months has [employer], gas, oil, or water [employer] threatened to shut off services in your [...] week 07/02/2023 How often do you attend [facility] or tenriism services? More than 4 times per year 07/02/2023 Do you belong to any clubs o r organizations such as yazidi groups, unions, fraternal or athletic groups, or [...] place to sleep or slept in a fpc (including now)? No 07/02/2023 Personal Safety Answer Date Recorded Have you ever been in or are you currently in a harmful physical or emotional relationship or is someone making you feel afraid or unsafe? 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 Pt verbally understood. documented in this encounter Plan of Treatment Not on file documented as of this encounter Visit Diagnoses Not on filedocumented in this encounter Care Teams Electrical Engineering Manager Relationship Specialty Start Date End Date Fidencio French MD [address] [place] [address] PCP - General Internal Medicine 06/12/22 Dahlia Mendez PA [address] [facility] [address] [address] Orthopedic Surgery 07/01/23 documented as of this encounter
--- OUTSIDE RECORDS SUMMARY | 2024-03-23 01:49 | XMS_ITS | Encounter Summary ---
Author Organization [facility] Healthcare Address [address] [place] [address] Care Team Providers Care Auto Service Writer Name Role Phone Fidencio French MD Primary Care Provider [phone] Dahlia Mendez Unavailable [phone] Reason for Referral * Diagnostic Imaging (Routine) - Closed Specialty Diagnoses / Procedures Referred By Kirt carvalho Referred To Contact Diagnoses S/P total knee arthroplasty, right Procedures XR Knee Right 3 Views Kamar Gandara DO [facility] [address] [place] [address] Phone: tel: fax: [address] [phone] Referral ID Status Reason Start Date Expiration Date Visits Re quested Visits Authorized [id number] Closed 08/12/2023 09/10/2024 1 1 Reason for Visit * Diagnostic Imaging (Routine) - Closed Specialty Diagnoses / Procedures Referred By Kirt carvalho Referred To Contact Diagnoses S/P total knee arthroplasty, right Procedures XR Knee Right 3 Views Kamar Gandara DO [facility] [address] [place] [address] Phone: tel: fax: [address] [phone] Referral ID Status Reason Start Date Expiration Date Visits Re quested Visits Authorized [id number] Closed 08/12/2023 09/10/2024 1 1 Encounter Details Date Type Department Care Team (Latest Contact Info) Description 08/13/2023 9:58 AM CDT - 08/13/2023 11:59 PM CDT Hospital Encounter [facility] Diag Imaging [address] [place] [address] S/P total knee arthroplasty, right Discharge Disposition: Discharge to home or self care Social History Tobacco Use Types Packs/Day Years Used Date Smoking Tobacco: Never Passive Smoke Exposure: Past Smokeless Tobacco: Never Alcohol Use Standard Drinks/Week Comments No 0 (1 standard drink = 0.6 oz pur e alcohol) [facility] Utilities Answer Date Recorded In [...] often do you attend chur ch or yazdanism services? More than 4 times per year 07/02/2023 Do you belong to any clubs o r organizations such as caodaism groups, unions, fraternal or athletic groups, or [...] place to sleep or slept in a skilled nursing (including now)? No 07/02/2023 Personal Safety Answer Date Recorded Have you ever been in or are you currently in a harmful physical or emotional relationship or is someone making you feel afraid or unsafe? 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 Gender Identity Not on file Sexual Orientation [...] by mouth daily apixaban (ELIQUIS) 2.5 mg tabletIndication s:VTE Prophylaxis [...] as needed for pain 30 tablet 08/07/2023 polyethylene glycol 236-22.74-6.74 -5.86 gram solution Take 240 mL by mouth once 04/10/2023 Trulicity 1.5 mg/0.5 mL pen injector INJECT CONTENTS OF ONE SYRINGE EVERY WEEK 07/28/2023 documented as of this encounter Discharge Disposition Disposition Code Departure Means Destination Discharge to home or self care documented in this encounter Plan of Treatment Not on file documented as of this encounter Procedures Procedure Name Priority Date/Time Associated Diagnosis Comments XR KNEE RIGHT 3 VIEWS Schedule Routine, Read Routine (OP Routine) 08/13/2023 10:14 AM CDT S/P total knee arthroplasty, right [...] D: ??08/14/2023 10:09 AM T: Report ID: [id number] Reading Location: ??[id number] Procedure Note Kwesi Kessler MD - 08/14/2023 [...] by Kwesi Kessler M.D. T: Report ID: [id number] Reading Location: [id number] Kamar Gandara DO IMG XR PROCEDURES Final Result documented in this encounter Visit Diagnoses Diagnosis S/P total knee arthroplasty, right documented in this encounter Care Teams Auto Service Writer Relationship Specialty Start Date End Date Fidencio French MD [address] [place] [address] PCP - General Internal Medicine 06/12/22 Dahlia Mendez PA [address] [facility] [place] [address] Orthopedic Surgery 07/01/23 documented as of this encounter
--- OUTSIDE RECORDS SUMMARY | 2024-03-23 01:49 | XMS_ITS | Encounter Summary ---
Author Organization [facility] Address [address] [place] [address] Care Team Providers Care Cut Pressman Name Role Phone Fidencio French MD Primary Care Provider [phone] Dahlia Mendez Unavailable [phone] Reason for Referral * Procedure (Routine) - Authorized Specialty Diagnoses / Procedures Referred By Contac t Referred To Contact Diagnoses Primary osteoarthritis of left knee Procedures Large Joint (Hip, Knee, Shoulder) Injection: L knee Kamar Gandara DO [address] [place] [address] [address] [place] [address] Phone: tel: fax: [facility] Referral ID Status Reason Start Date Expiration Date V isits Requested Visits Authorized [id number] Authorized 12/15/2023 01/13/2025 1 1 Reason for Visit * Reason Comments Pain Encounter Details Date Type Department Care Team (Latest Contact Info) Description 12/15/2023 2:30 PM CDT Clinical Support [facility] Orthopedics and Sports Medicine [address] [facility] [address] [place] [phone] Kamar Gandara DO [address] [facility] [address] [place] [address] Primary osteoarthritis of left knee (Primary Dx) Social History Tobacco Use Types Packs/Day Years Used Date Smoking Tobacco: Never Passive Smoke Exposure: Past Smokeless Tobacco: Never Alcohol Use Standard Drinks/Week Comments No 0 (1 standard drink = 0.6 oz pur e alcohol) [facility] Utilities Answer Date Recorded In the [...] any clubs o r organizations such as religion groups, unions, fraternal or athletic groups, or [...] on file 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 FOLLOW UP PATIENT VISIT Subjective CHIEF COMPLAINT She had no chief complaint listed for this encounter. HISTORY OF PRESENT ILLINESS Patient returns today for re-evaluation of their left knee. They continue to obtain good relief andare here today for repeat injection. No new injuries or trauma. No recent fevers or chills. Objective PHYSICAL EXAM There were no vitals taken for this visit. Left knee exam unchanged. No erythema or signs of infection. Joint line tenderness Diagnoses and all orders for this visit: Primary osteoarthritis of left knee (Primary) Plan: Discussed further treatment with the patient. They would like to proceed with injection today. [place] injected today and they tolerated well. Follow up with me as scheduled. Large Joint (Hip, Knee, Shoulder) Injection: L knee Performed by: Kamar Gandara DO Authorized by: Kamar Gandara DO Large Joint Injection/Aspiration: Verbal consent obtained: Yes Procedure Details: Location: Knee Site: L knee Prep: patient was prepped using a clean technique Medications: 16 mg hylan g-f 20 16 mg/2 mL Patient tolerance: Patient tolerated the procedure well with no immediate complications Kamar Gandara DO documented in this encounter Plan of Treatment Not on file documented as of this encounter Procedures Procedure Name Priority Date/Time Associated Diagnosis Comments NM ARTHROCENTESIS ASPIR&/INJ MAJOR JT/BURSA W/O US Routine 12/15/2023 2:30 PM CDT Primary osteoarthritis of left knee documented in this encounter Results * NM ARTHROCENTESIS ASPIR&/INJ MAJOR JT/BURSA W/O US (12/15/2023 2:30 PM CDT) Narrative Kamar Gandara DO - 12/15/2023 2:30 PM CDT Kamar Gandara DO ? 12/15/2023 ??2:53 PM Large Joint (Hip, Knee, Shoulder) Injection: [...] DO IN CLINIC/BEDSIDE ORDERABLES F inal Result documented in this encounter Visit Diagnoses Diagnosis Primary osteoarthritis of left knee- Primary documented in this encounter Administered Medications Inactive Administered Medications - up to 3 most recent administrations Medication Order MAR Action Action Date Dose Rate Site hylan g-f 20 (SYNVISC) 16 mg/2 mL injection 16 mg 16 mg, intra-articular, One-Time Injection, Starting on 12/15/23 at 1430, For 1 dose, Indications: Osteoarthritis of the KneeIndications:Osteoarthritis of the Knee Given 12/15/2023 2:30 PM CDT 16 mg Left Knee documented in this encounter Care Teams Cut Pressman Relationship Specialty Start Date End Date Fidencio French MD [address] [place] [address] PCP - General Internal Medicine 06/12/22 Dahlia Mendez PA [address] [facility] [address] [address] Orthopedic Surgery 07/01/23 documented as of this encounter
--- OUTSIDE RECORDS SUMMARY | 2024-03-23 01:49 | XMS_ITS | Encounter Summary ---
Author Organization [facility] Address [address] [place] [address] Phone Care Team Providers Care Housekeeping Aid Name Role Phone Fidencio French MD Primary Care Provider [phone] Dahlia Mendez Unavailable [phone] Reason for Referral * Diagnostic Imaging (Routine) - Authorized Specialty Diagnoses / Procedures Referred By Contac t Referred To Contact Diagnoses Breast cyst, right Family history of breast cancer Encounter for screening mammogram for malignant neoplasm of breast Procedures Screening Mammogram Bilateral W Steven Kumari MD [address] [place] [address] Phone: tel: fax: [address] [address] Referral ID Status Reason Start Date Expiration Date V isits Requested Visits Authorized [id number] Authorized 10/23/2023 11/21/2024 1 1 Reason for Visit * Reason Comments Follow-up * Consultation (Routine) - Authorized Specialty Diagnoses / Procedures Referred By Contac t Referred To Contact Surgical Oncology Diagnoses Family history of breast cancer Fidencio French MD [address] [place] [address] Phone: tel: fax: Steven Pickard MD [address] [place] [address] Phone: tel: fax: Referral ID Status Reason Start Date Expiration Date Visits Requested Visits Authorized [id number] Authorized Specialty Services Required 09/30/2023 10/29/2024 12 12 Encounter Details Date Type Department Care Team (Late st Contact Info) Description 10/23/2023 2:15 PM CDT Office Visit [facility] Surgery [address] [facility] 5[address] [place] [address] [place] [address] Steven Pickard MD [address] [place] [address] Family history of breast cancer (Primary Dx); Breast cyst, right; Skin lesion of breast; Intraductal papilloma; Encounter for screening mammogram for malignant neoplasm of breast Social History Tobacco Use Types Packs/Day Years Used Date Smoking Tobacco: Never Passive Smoke Exposure: Past Smokeless Tobacco: Never Tobacco Cessation:Counseling Given: Not Answered Alcohol Use Standard Drinks/Week Comments No 0 (1 standard drink = 0.6 oz pur e alcohol) [facility] Utilities Answer Date Recorded In the past 12 months has e electric, gas, oil, or water [employer] threatened to shut off services in your [...] often do you attend chur ch or protestant services? 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 Gender Identity Not on file Sexual Orientation Not on file documented as of this encounter Last Filed Vital Signs Vital Sign Reading Time Taken Comments Blood Pressure - - Pulse - - Temperature - - Respiratory Rate - - Oxygen Saturation - - Inhaled Oxygen Concentration - - Weight 97.1 kg (214 lb 1.1 oz) 10/23/2023 1:58 P M CDT Height 157.5 cm (5' 2.01 ) 10/23/2023 1:58 PM CD T Body Mass Index 39.14 10/23/2023 1:58 PM CDT documented in this encounter Progress Notes * Steven Pickard MD - 10/23/2023 2:15 PM CDT PATIENT NAME: Lindsay Pedersen DATE OF : 1955 DATE OF OFFICE VISIT: 10/23/2023 REFERRING MD: Fidencio French MD IDENTIFICATION: The patient is a 68 y.o. female with a history of a LEFT breast intraductal papilloma and a RIGHT breast epidermal inclusion cyst. INTERVAL HISTORY: The patient is a 68-year-old female who was previously seen in clinic for a LEFT sided breast mass noted on screening mammography. This was subsequently biopsied and noted to be consistent with an intraductal papilloma. She was then seen in clinic in 2022 for a new abnormality in the RIGHT breast. This was noted to be consistent with an epidermal inclusion cyst which was treatednonoperatively with antibiotics. She has since done well and currently reports no complaints at this time. Specifically she reports new lumps, no masses and no lesions / changes to her breasts. She reports no skin changes, no nippledischarge, or bleeding from either of her breasts. She reports no changes to her baseline medical health. She reports no changes to her family history or any new history of breast cancer in her family. She currently has no complaints. PAST MEDICAL HISTORY: Past Medical History: Diagnosis Date Benign neoplasm [...] days ago 1995 Motion sickness Osteoarthritis Proteinuria PAST SURGICAL HISTORY: History of left breast needle localization biopsy in 2017 MEDICATIONS: HOME MEDICATIONS : Accu-Chek Guide Me Glucose Mtr [facility] [place] Accu-Chek Guide test strips strip Accu-Chek Softclix Lancets lancets amLODIPine (NORVASC) 10 mg tablet apixaban (ELIQUIS) 2.5 mg tablet atorvastatin (LIPITOR) 20 mg tablet calcitRIOL (ROCALTROL) 0.25 mcg capsule dapagliflozin propanediol (Farxiga) 10 mg tablet ergocalciferol (VITAMIN D) 50,000 unit capsule lidocaine (LIDODERM) 5 % losartan (COZAAR) 100 mg tablet metroNIDAZOLE (METROGEL) 0.75 % (37.5mg/5 gram) vaginal gel oxyCODONE (ROXICODONE) 10 mg tablet oxyCODONE (ROXICODONE) 5 mg immediate release tablet polyethylene glycol 236-22.74-6.74 -5.86 gram solution Trulicity 1.5 mg/0.5 mL pen injector ALLERGIES: Allergies Allergen Reactions Shrimp Swelling and Swollen tongue Shellfish Containing Products Swelling FAMILY HISTORY: Family History Problem Relation Age of Onset Breast cancer Sister Adenocarcinoma of breast - (Added by TW Conv) Breast cancer Father's Sister SOCIAL HISTORY: Social History Tobacco Use Smoking status: Never Passive exposure: Past Smokeless tobacco: Never Substance and Sexual Activity Drug use: Never Sexual activity: Defer Alcohol Use: Not At Risk (07/01/2023) AUDIT-C Frequency of Alcohol Consumption: Never Average Number of Drinks: Patient does not drink Frequency of Binge Drinking: Never REVIEW OF SYSTEMS: GENERAL: Denies fevers, chills or malaise. SKIN: Denies rashes, sores. HEAD: Denies headache, migraine. EYES: Denies vision change, glaucoma. RESPIRATORY: Denies cough, sputum, hemoptysis, TB, pneumonia. CARDIAC: Denies chest pain, palpitations, dyspnea, orthopnea. GASTROINTESTINAL: Denies heartburn/reflux, nausea, dyspepsia, vomiting, vomiting of blood, change in bowel habits, rectal bleeding or black/tarry stools. URINARY: Denies polyuria, dysuria, nocturia, infections. VASCULAR: Denies intermittent claudication, leg cramps, thrombophlebitis. Denies DVT, PE. MUSCULOSKELETAL: Denies gout, systemic arthritis. Denies osteoarthritis. NEUROLOGIC: Denies recent fainting, blackouts, seizures, paralysis, tremors, numbness, gait change,stroke. HEMATOLOGIC: Denies easy bruising or bleeding, past transfusion reactions. PSYCH: Denies depression, denies anxiety PHYSICAL EXAMINATION: General: Well-developed, well-nourished in no apparent distress. Eyes: PERRLA, EOM intact. HEENT: NC/AT, sclerae anicteric. Neck: Supple, without thyromegaly or adenopathy. Respiratory: Clear to auscultation bilaterally. Cardiovascular: Regular rate and rhythm. Abdomen: Soft, nontender, nondistended, without obvious masses. Extremities: No edema or cyanosis. Musculoskeletal: Normal range of motion. Neurological examination: Alert and oriented x 3, otherwise grossly nonfocal. Skin/Soft Tissue: No appreciable cervical, supraclavicular, axillary, or inguinal adenopathy. Breast: Examination of the breasts in the upright and supine positions reveal no obvious masses, orskin changes. LABORATORY: [place] RADIOLOGY: The patient had a screening mammogram today. The results are not currently available. EXAMINATION: RIGHT UNILATERAL DIGITAL DIAGNOSTIC MAMMOGRAM AND DIGITAL BREAST TOMOSYNTHESIS; RIGHT BREAST SONOGRAM, 2022 HISTORY: 67-year-old woman with palpable right breast lump since February. The patient completed a course of antibiotics in February with significant interval improvement of the lesion after drainage of yellow/white material. However, the area remains tender. COMPARISON: Mammogram from 01/09/2022 TECHNIQUE: Full field digital mammographic views of the RIGHT breast were performed, including computer aided detection (CAD) and digital breast tomosynthesis (DBT). Directed ultrasound evaluation of the RIGHT breast was performed by a trained machine technician and by Gala . BREAST PARENCHYMAL COMPOSITION: The breasts are heterogenously dense, which may obscure small masses. MAMMOGRAM FINDINGS: There is no new suspicious abnormality in the RIGHT breast, with attention to the right lower area of residual tenderness. SONOGRAM FINDINGS: There is a small, superficial, 2 mm hypoechoic area at 6:00, 8 cm from the nipple along the intramammary fold, with extension towards the subcutaneous fat, which is consistent with a resolved sebaceous lesion. No residual mass or cyst of concern is seen. IMPRESSION: Negative mammography over right lower inner area of recent lump near inframammary fold. Ultrasound shows a small hypoechoic area along the inframammary fold of right breast, consistent with resolved sebaceous lesion after course of antibiotics. OVERALL FINAL ASSESSMENT: BI-RADS Category 2: Benign. RECOMMENDATION: 1. Annual screening mammography is recommended. 2. Clinical follow-up is recommended. Dictated by: Janna Ledesma MD PATHOLOGY: None new IMPRESSION: The patient is a 68 y.o. female with a history of of a LEFT intraductal papilloma and anow resolved RIGHT breast epidermal inclusion cyst. She was seen in clinic today for continued follow-up and appears to be doing well. Her clinical breast examination is unremarkable. PLAN: The patient is a 68-year-old female with a history of a LEFT intraductal papilloma and a resolved RIGHT epidermal inclusion cyst. Her clinical breast examination is unremarkable. The results ofher mammogram are pending. I will plan to see her back in follow-up in approximately 1 year pendingthe results of her mammogram. I have seen and examined Lindsay Sheela Pedersen with the resident physician. We worked together to completethe office note, and I personally reviewed and edited the note. I agree with the evaluation and management plan outlined above. Steven Pickard MD documented in this encounter Plan of Treatment Scheduled Orders Name Type Priority Associated Diagnoses Orde r Schedule Screening Mammogram Bilateral W Prem Imaging Schedule Routine, Read Routine (OP Routine) Breast cyst, right Family history of breast cancer Encounter for screening mammogram for malignant neoplasm of breast Expected: 10/22/2024, Expires: 04/24/2025 documented as of this encounter Visit Diagnoses Diagnosis Family history of breast cancer- Primary Family history of malignant neoplasm of breast Breast cyst, right Skin lesion of breast Intraductal papilloma Encounter for screening mammogram for malignant neoplasm of breast documented in this encounter Orders Outpatient Referral Count Last Ordered Date Fir st Ordered Date AMB REFERRAL TO SURGICAL ONCOLOGY 1 024 documented in this encounter Care Teams Housekeeping Aid Relationship Specialty Start Date End Date Fidencio French MD [address] [place] [address] PCP - General Internal Medicine 06/12/22 Dahlia Mendez PA [address] [facility] [address] [place] [address] Orthopedic Surgery 07/01/23 documented as of this encounter
--- OUTSIDE RECORDS SUMMARY | 2024-03-23 01:49 | XMS_ITS | Encounter Summary ---
Author Organization [facility] Address [address] [place] [address] Care Team Providers Care Head Men'S Tennis Coach Name Role Phone Fidencio rFench MD Primary Care Provider [phone] Dahlia Mendez Unavailable [phone] Reason for Referral * Consultation (Routine) - Closed Specialty Diagnoses / Procedures Referred By Kirt carvalho Referred To Contact Physical Therapy Diagnoses S/P total knee arthroplasty, right Dahlia Mendez PA [address] [facility] [address] [place] [address] Phone: tel: fax: External Order Referral ID Status Reason Start Date Expiration Date V isits Requested Visits Authorized [id number] Closed Evaluate and Treat 07/16/2023 08/14/2024 24 24 Question Answer PTRFR PT Evaluate and Treat Therapy options discussed with patient? Yes Location provided for therapy services is: Patient requested/Patient preferred Please select the performing region: External Order [[id number]] # of visits: 24 Comments 1-2 times per week ROM AND STRENGTH * Diagnostic Imaging (Routine) - Closed Specialty Diagnoses / Procedures Referred By Kirt carvalho Referred To Contact Diagnoses S/P total knee arthroplasty, right Procedures XR Knee Right 3 View Dahlia Mendez PA [address] [facility] [address] [place] [address] Phone: tel: fax: [facility] [address] [place] [address] Referral ID Status Reason Start Date Expiration Date Visits Re quested Visits Authorized [id number] Closed 07/09/2023 08/07/2024 1 1 Reason for Visit * Reason Comments Pain Encounter Details Date Type Department Care Team (Late st Contact Info) Description 07/16/2023 10:00 AM CDT Office Visit [facility] Orthopedics and Sports Medicine [address] [place] [address] [address] [place] [phone] Dahlia Mendez PA [address] [facility] [address] [place] [address] S/P total knee arthroplasty, right (Primary Dx) Social History Tobacco Use Types Packs/Day Years Used Date Smoking Tobacco: Never Passive Smoke Exposure: Past Smokeless Tobacco: Never Tobacco Cessation:Counseling Given: Not Answered Alcohol Use Standard Drinks/Week Comments No 0 (1 standard drink = 0.6 oz pur e alcohol) [facility] Utilities Answer Date Recorded In the past 12 months has Combatant Gent[employer] electric, gas, oil, or water company threatened [...] often do you attend chur ch or holiness services? 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 Subjective/Objective Patient ID: Lindsay Pedersen is a 68 y.o. female. Chief Complaint Chief Complaint Patient presents with Right Knee - Pain Vitals Ht 157.5 cm (5' 2 ) Wt 97.1 kg (214 lb) BMI 39.14 kg/m?? HPI Patient is presenting today for 2 week follow up of right total knee arthroplasty performed by Dr. Gandara on 07/01/2023. She was discharged to a half-way facility, and was discharged from the half-way facility around the 06 of July. She has been seen by home health since discharge. She is doing well overall. She has been keeping the surgical site clean and dry and has not notedany drainage from surgical site. She denies numbness and tingling down the leg. Patient denies chest pain, shortness of breath, fever, chills. Review of Systems Constitutional: Negative for [...] has no focal or lateralizing deficits. Musculoskeletal: Right Knee Exam Tenderness Right knee tenderness location: Mildly tender around surgical site. Range of Motion Extension: 0 Flexion: 100 Other Erythema: absent Sensation: normal (Grossly intact distally) Pulse: present Effusion: effusion present Comments: Surgical site is well approximated with subcutaneous sutures and glue. No drainage from the surgical sites. No erythema or ecchymosis. No signs of infection. Calf compartments soft and compressible without tenderness. Imaging: X-ray imaging demonstrates right total knee arthroplasty hardware in good alignment without apparent complication. Assessment/Plan Diagnoses and all orders for this visit: S/P total knee arthroplasty, right (Primary) Assessment & Plan: Patient is doing well overall. X-rays were reviewed with the patient today in clinic and demonstrate hardware in good alignment without apparent complication. Patient's pain is under control, pain medication was refilled today. Patient will continue with home health physical therapy, and will startoutpatient physical therapy when home Health is done. A Physical script was printed for the patientto bring in to an outpatient PT location [...] Expressed understanding and agreement with the plan. Orders: - XR Knee Right 3 View; Future - Ambulatory referral order to Physical Therapy -; Future Return in about 4 weeks (around 08/13/2023). VINCENZO Lopez documented in this encounter Miscellaneous Notes * Assessment & Plan Note - Dahlia Mendez PA - 07/16/2023 10:19 AM CDT Associated Problem(s): S/P total knee arthroplasty, right Patient is doing well overall. X-rays were reviewed with the patient today in clinic and demonstrate hardware in good alignment without apparent complication. Patient's pain is under control, pain medication was refilled today. Patient will continue with home health physical therapy, and will startoutpatient physical therapy when home Health is done. A Physical script was printed for the patientto bring in to an outpatient PT location [...] Expressed understanding and agreement with the plan. documented in this encounter Plan of Treatment Scheduled Referrals Name Type Priority Associated Diagnoses Order Schedule Ambulatory referral order to Physical Therapy - Outpatient Referral Routine S/P total knee arthroplasty, right Expected: 07/30/2023 (Approximate), Expires: 07/15/2024 documented as of this encounter Results * [...] D: ??07/17/2023 3:03 PM T: Report ID: [id number] Reading Location: ??[id number] Procedure Note Kwesi Kessler MD - 07/17/2023 [...] by Kwesi Kessler M.D. T: Report ID: [id number] Reading Location: [place] [address] Dahlia LOYA IMG XR PROCEDURES Final Re sult documented in this encounter Visit Diagnoses Diagnosis S/P total knee arthroplasty, right- Primary S/P total knee arthroplasty, right documented in this encounter Care Teams Head Men'S Tennis Coach Relationship Specialty Start Date End Date Fidencio French MD [address] [place] [address] PCP - General Internal Medicine 06/12/22 Dahlia Mendez PA [address] [facility] [address] [address] Orthopedic Surgery 07/01/23 documented as of this encounter
--- OUTSIDE RECORDS SUMMARY | 2024-03-23 01:49 | XMS_ITS | Encounter Summary ---
Author Organization [facility] Healthcare Address [address] [place] [address] Care Team Providers Care Nurse Instructor Name Role Phone Fidencio French MD Primary Care Provider [phone] Dahlia Mendez Unavailable [phone] Reason for Referral * Procedure (Routine) - Authorized Specialty Diagnoses / Procedures Referred By Conttyron t Referred To Contact Diagnoses Primary osteoarthritis of left knee Procedures Large Joint (Hip, Knee, Shoulder) Injection: L knee Kamar Gandara DO [address] [place] [address] DR DA[address]INS [address] [place] [address] Phone: tel: fax: [facility] Referral ID Status Reason Start Date Expiration Date V isits Requested Visits Authorized [id number] Authorized 12/22/2023 01/20/2025 1 1 Reason for Visit * Reason Comments Pain Synvisc #3 Injections Synvisc #3 Encounter Details Date Type Department Care Team (Latest Contact Info) Description 12/22/2023 2:30 PM CDT Clinical Support [facility] Orthopedics and Sports Medicine [facility] [address] [place] [phone] Kamar Gandara DO [address] [place] [address] DR DAWKINS [address] [place] [phone] Primary osteoarthritis of left knee (Primary Dx) Social History Tobacco Use Types Packs/Day Years Used Date Smoking Tobacco: Never Passive Smoke Exposure: Past Smokeless Tobacco: Never Alcohol Use Standard Drinks/Week Comments No 0 (1 standard drink = 0.6 oz pur e alcohol) [facility] Utilities Answer Date Recorded In [...] often do you attend chur ch or worship services? More than 4 times per year 07/02/2023 Do you belong to any clubs o r organizations such as anabaptist groups, unions, fraternal or athletic groups, or [...] place to sleep or slept in a [facility] (including now)? No 07/02/2023 Personal Safety Answer Date Recorded Have you ever been in or are you currently in a harmful physical or emotional relationship or is someone making you feel afraid or unsafe? 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 FOLLOW UP PATIENT VISIT Subjective CHIEF COMPLAINT She had concerns including Pain and Injections of the Left Knee (Synvisc #3). HISTORY OF PRESENT ILLINESS Patient returns today for re-evaluation of their left knee. They continue to obtain good relief andare here today for repeat injection. No new injuries or trauma. No recent fevers or chills. Objective PHYSICAL EXAM There were no vitals taken for this visit. Left knee exam unchanged. No erythema or signs of infection. Joint line tenderness There are no diagnoses linked to this encounter. Plan: Discussed further treatment with the patient. They would like to proceed with injection today. Leftknee injected today and they tolerated well. Follow up with me as scheduled. Large Joint (Hip, Knee, Shoulder) Injection: L knee Performed by: Kamar Gandara DO Authorized by: Wiechert, Kamar, DO Large Joint Injection/Aspiration: Verbal consent obtained: [...] Procedure Name Priority Date/Time Associated Diagnosis Comments CT ARTHROCENTESIS ASPIR&/INJ MAJOR JT/BURSA W/O US Routine 12/22/2023 2:30 PM CDT Primary osteoarthritis of left knee documented in this encounter Results * CT ARTHROCENTESIS ASPIR&/INJ MAJOR JT/BURSA W/O US (12/22/2023 2:30 PM CDT) Narrative Kamar Gandara DO - 12/22/2023 2:30 PM CDT Kamar Gandara DO ? 12/22/2023 ??3:17 PM Large Joint [...] 16 mg, intra-articular, One-Time Injection, Starting on 12/22/23 at 1430, For 1 dose, Indications: Osteoarthritis of the KneeIndications:Osteoarthritis of the Knee Given 12/22/2023 2:30 PM CDT 16 mg Left Knee documented in this encounter Historical Medications * This list may reflect changes made after this encounter. penciclovir (DENAVIR) 1 % cream Apply 1 application 6 times a day by topical route for 5 days. 10/24/2023 added in this encounter Care Teams Nurse Instructor Relationship Specialty Start Date End Date Fidencio French MD [address] [place] [address] PCP - General Internal Medicine 06/12/22 Dahlia Mendez PA [address] [facility] [address] [address] Orthopedic Surgery 07/01/23 documented as of this encounter
--- OUTSIDE RECORDS SUMMARY | 2024-03-23 01:49 | XMS_ITS | Encounter Summary ---
Author Organization [facility] Healthcare Address [address] [place] [address] Care Team Providers Care Line Cook Name Role Phone Fidencio French MD Primary Care Provider [phone] Dahlia Mendez Unavailable [phone] Encounter Details Date Type Department Care Team (Late st Contact Info) Description 07/04/2023 NH/SNF Visit [facility] Post Acute Care [address] [phone] Robb Lr MD [address] [place] [phone] S/P total knee arthroplasty, right (Primary Dx); Arthralgia, unspecified joint; Hyperlipidemia, unspecified hyperlipidemia type; Essential hypertension; Type 2 diabetes mellitus without complication, unspecified whether joint terminal attack controller insulin use (HCC); Class 2 obesity due to excess calories with body mass index (BMI) of 39.0 to 39.9 in adult, unspecified whether serious comorbidity present; Gastroesophageal reflux disease, unspecified whether esophagitis present; Sleep apnea, unspecified type; Constipation, unspecified constipation type Social History Tobacco Use Types Packs/Day Years Used Date Smoking Tobacco: Never Passive Smoke Exposure: Past Smokeless Tobacco: Never Alcohol Use Standard Drinks/Week Comments No 0 (1 standard drink = 0.6 oz pur e alcohol) [facility] Utilities Answer Date Recorded In the past 12 months has [employer], [employer], or [employer] threatened to shut off services in your [...] often do you attend chur ch or anabaptist services? 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 Gender Identity Not on file Sexual Orientation Not on file documented as of this encounter Last Filed Vital Signs Vital Sign Reading Time Taken Comments Blood Pressure 132/78 07/04/2023 3:07 PM CDT Pulse 97 07/04/2023 3:07 PM CDT Temperature - - Respiratory Rate 20 07/04/2023 3:07 PM CDT Oxygen Saturation 100% 07/04/2023 3:07 PM CDT Inhaled Oxygen Concentration - - Weight - - Height - - Body Mass Index - - documented in this encounter Ordered Prescriptions Prescription Sig Dispense Quantity Refills Last Filled Start Date End Date oxyCODONE (ROXICODONE) 10 mg tabletIndications: Pain Take 1 tablet (10 mg total) by mouth every 4 (four) hours 30 tablet 07/04/2023 07/30/2023 documented in this encounter Progress Notes * Robb Lr MD - 07/04/2023 10:59 AM CDT Images from the original note were not included. [facility] History and Physical Date of service: 07/04/2023 Primary care provider: Fidencio French MD SUBJECTIVE HPI: This is a pleasant woman from [facility]. She presents to [facility] after two days in . She has undergone R TKA (OA) and Dr Fontana is her surgeon. She doesn't feel that her pain is well controlled and she has not had a BM x several days despite miralax and softeners. She plans to go home under her daughter's care on Friday. Otherwise, she denies new/acute medical problems. DVT Prophylaxis: apixaban Code status: full code A/P: Diagnoses and all orders for this visit: S/P total knee arthroplasty, right (Primary) Assessment & Plan: Chronic, stable; cont rx oxycodone 10mg; she is unhappy w the pain control so the script is changedfrom q4h prn to q4h ATC (and she is advised to refuse the dose if she doesn't feel that it is needed at that time); cont rx apixaban 2.5mg po bid for DVT prophy. Arthralgia, unspecified joint - oxyCODONE (ROXICODONE) 10 mg tablet; Take 1 tablet (10 mg total) by mouth every 4 (four) hours Hyperlipidemia, unspecified hyperlipidemia type Assessment & Plan: Chronic, stable; cont rx lipitor Essential hypertension Assessment & Plan: Chronic, stable; cont rx norvasc, losartan Type 2 diabetes mellitus without complication, unspecified whether joint terminal attack controller insulin use (HCC) Assessment & Plan: Chronic, stable; cont rx farxiga, ozempic Class 2 obesity due to excess calories with body mass index (BMI) of 39.0 to 39.9 in adult, unspecified whether serious comorbidity present Gastroesophageal reflux disease, unspecified whether esophagitis present Sleep apnea, unspecified type Constipation, unspecified constipation type Comments: no BM for several days. given MOM and Dulcolax and nurse asked to call by 6PM if 0 result Past Medical History: Diagnosis Date Benign neoplasm of breast Blood in urine CKD (chronic kidney disease), stage III (HCC) DM2 (diabetes mellitus, type 2) ([facility]) Ear pain, bilateral 06/11/2023 Pt [...] SURGERY 1975 HYSTERECTOMY 1995 TUBAL LIGATION 1981 (Not in a hospital admission) Allergies Allergen Reactions Shrimp Swelling and Swollen [...] by TW Conv) Breast cancer Father's Sister Prior to Admission medications Medication Sig Start Date End Date Taking? Authorizing Provider Accu-Chek Guide Me Glucose Mtr misc 1 Insert daily 03/24/23 Lorena Alvarez MD Accu-Chek Guide test strips strip USE ONE STRIP TO CHECK GLUCOSE DAILY 04/29/22 Lorena Alvarez MD Accu-Chek Softclix Lancets lancets USE TO CHECK GLUCOSE ONCE DAILY 04/29/22 Lorena Alvarez MD amLODIPine (NORVASC) 10 mg tablet Take 1 tablet (10 mg total) by mouth daily Lorena Alvarez MD apixaban (ELIQUIS) 2.5 mg tablet Take 1 tablet (2.5 mg total) by mouth 2 (two) times a day 07/01/23 Dahlia Mendez PA atorvastatin (LIPITOR) 20 mg tablet Take 1 tablet (20 mg total) by mouth daily 10/20/21 Lorena Alvarez MD calcitRIOL (ROCALTROL) 0.25 mcg capsule Take 1 capsule (0.25 mcg total) by mouth daily Lorena Alvarez MD dapagliflozin propanediol (Farxiga) 10 mg tablet Take 1 tablet every day by oral route. Lorena Alvarez MD ergocalciferol (VITAMIN D) 50,000 unit capsule Take 1 capsule (50,000 Units total) by mouth once a week Lorena Alvarez MD losartan (COZAAR) 100 mg tablet Take 1 tablet (100 mg total) by mouth daily 02/23/18 Lorena Alvarez MD oxyCODONE (ROXICODONE) 10 mg tablet Take 1 tablet (10 mg total) by mouth every 4 (four) hours 07/04/23 Robb Lr MD Ozempic 0.25 mg or 0.5 mg (2 mg/3 mL) pen injector injection Inject 0.5 mg under the skin once a week Injects on Sundays. 05/03/23 Lorena Alvarez MD polyethylene glycol 236-22.74-6.74 -5.86 gram solution Take 240 mL by mouth once 04/10/23 Lorena Alvarez MD oxyCODONE (ROXICODONE) 10 mg tablet Take 1 tablet (10 mg total) by mouth every 4 (four) hours as needed for pain 07/03/23 07/04/23 Dahlia Mendez PA OBJECTIVE Vital Signs: There were no vitals taken for this visit. Review of Systems: SEE HPI Physical Exam: Physical Exam Vitals reviewed. Exam conducted with a manager of clinical present. Constitutional: General: She is not in acute distress. Appearance: She is obese. She is not ill-appearing, toxic-appearing or diaphoretic. HENT: Head: Normocephalic and atraumatic. Nose: Nose normal. No congestion or rhinorrhea. Eyes: General: Right eye: No discharge. Left eye: No discharge. Extraocular Movements: Extraocular movements intact. Cardiovascular: Rate and Rhythm: Normal rate and regular rhythm. Heart sounds: Normal heart sounds. No murmur heard. No friction rub. Pulmonary: Effort: Pulmonary effort is normal. No respiratory distress. Breath sounds: Normal breath sounds. No stridor. No wheezing. Abdominal: General: There is no distension. Palpations: Abdomen is soft. There is no mass. Tenderness: There is no abdominal tenderness. There is no guarding. Musculoskeletal: Comments: Surgical dressing R ant knee is clean and the skin is dry, no redness or drainage. Skin: General: Skin is dry. Coloration: Skin is not jaundiced or pale. Findings: No erythema. Neurological: General: No focal deficit present. Mental Status: She is alert and oriented to person, place, and time. Cranial Nerves: No cranial nerve deficit. Psychiatric: Mood and Affect: Mood normal. Behavior: Behavior normal. Thought Content: Thought content normal. Judgment: Judgment normal. Lab/Radiology/Diagnostic Review: Recent Results (from the past 72 hour(s)) POCT glucose Collection Time: 07/01/23 3:49 [...] mg/dL Glucose comment 1 Use This Result XR Knee Right 1 or 2 View [...] 3:18 PM - Electronically signed by Chris QUACH T: Report ID: [id number] ReadingLocation: [id number] Current Medications:reconciled Epic and Cerner Note; orders entered Cerner to prep for Mond discharge to include arranging home health nurse, homePT/OT; Meds to be reconciled on day of discharge. She will need a 2WW, A rollator or walker would greatly improve [...] safety. Electronically signed by Robb Lr MD 07/04/2023 3:01 PM Voice recognition software [employer] was used dictate and transcribe this document. Lime Sludge Kiln Operator variances may occur. Despite proofreading, typographical errors may occur. documented in this encounter Miscellaneous Notes * Assessment & Plan Note - Robb Lr MD - 07/04/2023 3:01 PM CDT Associated Problem(s): Type 2 diabetes mellitus without complication (CMS/HCC) (HCC) Chronic, stable; cont rx farxiga, ozempic * Assessment & Plan Note - Robb Lr MD - 07/04/2023 3:00 PM CDT Associated Problem(s): Hyperlipidemia Chronic, stable; cont rx lipitor * Assessment & Plan Note - Robb Lr MD - 07/04/2023 3:00 PM CDT Associated Problem(s): Essential hypertension Chronic, stable; cont rx norvasc, losartan * Assessment & Plan Note - Robb Lr MD - 07/04/2023 2:59 PM CDT Associated Problem(s): S/P total knee arthroplasty, right Chronic, stable; cont rx oxycodone 10mg; she is unhappy w the pain control so the script is changedfrom q4h prn to q4h ATC (and she is advised to refuse the dose if she doesn't feel that it is needed at that time); cont rx apixaban 2.5mg po bid for DVT prophy. documented in this encounter Plan of Treatment Not on file documented as of this encounter Visit Diagnoses Diagnosis S/P total knee arthroplasty, right- Primary Arthralgia, unspecified joint Hyperlipidemia, unspecified hyperlipidemia type Essential hypertension Unspecified essential hypertension Type 2 diabetes mellitus without complication, unspecified whether fdc insulin use (HCC) Class 2 obesity due to excess calories with body mass index (BMI) of 39.0 to 39.9 in adult, unspecified whether serious comorbidity present Gastroesophageal reflux disease, unspecified whether esophagitis present Sleep apnea, unspecified type Constipation, unspecified constipation type documented in this encounter Discontinued Medications Medication Sig Discontinue Reason Start Date End Da te oxyCODONE (ROXICODONE) 10 mg tabletIndications:Pain Take 1 tablet (10 mg total) by mouth every 4 (four) hours as needed for pain Alternate therapy 07/03/2023 07/04/2023 documented as of this encounter Care Teams Line Cook Relationship Specialty Start Date End Date Fidencio French MD [address] [place] [address] PCP - General Internal Medicine 06/12/22 Dahlia Mendez PA [address] [place] [address] Orthopedic Surgery 07/01/23 documented as of this encounter
--- OUTSIDE RECORDS SUMMARY | 2024-03-23 01:49 | XMS_ITS | Encounter Summary ---
Author Organization [facility] Healthcare Address [address] [place] [address] Care Team Providers Care Nutrition Club Ambassador Name Role Phone Fidencio French MD Primary Care Provider [phone] Dahlia Mendez Unavailable [phone] Reason for Referral * Diagnostic Imaging (Routine) - Closed Specialty Diagnoses / Procedures Referred By Kirt carvalho Referred To Contact Diagnoses Encounter for screening mammogram for malignant neoplasm of breast Procedures Screening Mammogram Bilateral W Jody Engel NP Phone: tel: fax: [address] [phone] Referral ID Status Reason Start Date Expiration Date Visits Re quested Visits Authorized [id number] Closed 08/06/2023 09/04/2024 1 1 Reason for Visit * Diagnostic Imaging (Routine) - Closed Specialty Diagnoses / Procedures Referred By Kirt carvalho Referred To Contact Diagnoses Encounter for screening mammogram for malignant neoplasm of breast Procedures Screening Mammogram Bilateral W Jody Engel NP Phone: tel: fax: [address] [phone] Referral ID Status Reason Start Date Expiration Date Visits Re quested Visits Authorized [id number] Closed 08/06/2023 09/04/2024 1 1 Encounter Details Date Type Department Care Team (Latest Contact Info) Description 10/23/2023 2:12 PM CDT - 10/23/2023 11:59 PM CDT Hospital Encounter [facility] ([facility]) [address] [place] [address] Encounter for screening mammogram for malignant neoplasm of breast Discharge Disposition: Discharge to home or self care Social History Tobacco Use Types Packs/Day Years Used Date Smoking Tobacco: Never Passive Smoke Exposure: Past Smokeless Tobacco: Never Alcohol Use Standard Drinks/Week Comments No 0 (1 standard drink = 0.6 oz pur e alcohol) [facility] Utilities Answer Date Recorded In the [...] often do you attend chur ch or yazidism services? More than 4 times per year 07/02/2023 Do you belong to any clubs o r organizations such as temple groups, unions, fraternal or athletic groups, or [...] place to sleep or slept in a penitentiary (including now)? No 07/02/2023 Personal Safety Answer Date Recorded Have you ever been in or are you currently in a harmful physical or emotional relationship or is someone making you feel afraid or unsafe? 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 ??Views obtained: ??bilateral craniocaudal and bilateral mediolateral oblique. ??Computer Aided Detection was performed. Mammogram Findings: The present examination has been compared to prior imaging studies performed at [facility] on 01/03/2021, 01/09/2022 and 06/19/2022. The breasts [...] compared to prior imaging studies performed at [facility] on 01/03/2021, 01/09/2022 and 06/19/2022. The breasts [...] ASSESSMENT: BI-RADS CATEGORY 1: Negative. Jody Durán NP IMG MAMMO PROCEDURES Fin al Result documented in this encounter Visit Diagnoses Diagnosis Encounter for screening mammogram for malignant neoplasm of breast documented in this encounter Care Teams Nutrition Club Ambassador Relationship Specialty Start Date End Date Fidencio French MD [address] [place] [address] PCP - General Internal Medicine 06/12/22 Dahlia Mendez PA [address] [place] [address] Orthopedic Surgery 07/01/23 documented as of this encounter
--- OUTSIDE RECORDS SUMMARY | 2024-03-23 01:49 | XMS_ITS | Encounter Summary ---
Author Organization [facility] Address [address] [place] [address] Phone Care Team Providers Care Hand Bulldozer Name Role Phone Fidencio French MD Primary Care Provider [phone] Dahlia Mendez Unavailable [phone] Encounter Details Date Type Department Care Team (Late st Contact Info) Description 09/30/2023 Telephone [facility] Surgery [address] [facility] Advanced Medicine 5th [place] [address] [place] [address] Kecia Amezquita CMA Social History Tobacco Use Types Packs/Day Years Used Date Smoking Tobacco: Never Passive Smoke Exposure: Past Smokeless Tobacco: Never Alcohol Use Standard Drinks/Week Comments No 0 (1 standard drink = 0.6 oz pur e alcohol) [facility] Utilities Answer Date Recorded In the past 12 months has [employer], [employer], or [employer] threatened to shut off services in your [...] How often do you attend chur or rastafari services? More than 4 times per year 07/02/2023 Do you belong to any clubs o r organizations such as anabaptism groups, unions, fraternal or athletic groups, or [...] place to sleep or slept in a longterm (including now)? No 07/02/2023 Personal Safety Answer Date Recorded Have you ever been in or are you currently in a harmful physical or emotional relationship or is someone making you feel afraid or unsafe? 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 I will also offer her tofollow up with her COMMISSARY OFFICER locally for breast exam and imaging. A screening mammogram is due at time too. documented in this encounter Plan of Treatment Not on file documented as of this encounter Visit Diagnoses Not on filedocumented in this encounter Care Teams Hand Bulldozer Relationship Specialty Start Date End Date Fidencio French MD [address] [place] [address] PCP - General Internal Medicine 06/12/22 Dahlia Mendez PA [address] [facility] [address] [address] Orthopedic Surgery 07/01/23 documented as of this encounter
--- OUTSIDE RECORDS SUMMARY | 2024-03-23 01:50 | XMS_ITS | Encounter Summary ---
Author Organization [facility] Healthcare Address [address] [place] [address] Care Team Providers Care Graphic Art Sales Representative Name Role Phone Fidencio French MD Primary Care Provider [phone] Reason for Visit * Reason Onset Date Comments cardiac clearance 06/23/2023 Encounter Details Date Type Department Care Team (Late st Contact Info) Description 06/23/2023 Telephone [facility] Medical [facility] Orthopedics and Sports Medicine [address] [place] [phone] Kamar Gandara, [address] [address] cardiac clearance Social History Tobacco Use Types Packs/Day Years Used Date Smoking Tobacco: Never Passive Smoke Exposure: Past Smokeless Tobacco: Never Alcohol Use Standard Drinks/Week Comments No 0 (1 standard drink = 0.6 oz pur e alcohol) AUDIT-C Answer Date Recorded Q1: How often do you have a drink containing alc ohol? Never 06/11/2023 Average Number of Drinks Not on file 024 Frequency of Binge Drinking Not on file 05/23 Personal Safety Answer Date Recorded Have you ever been in or are you currently in a harmful physical or emotional relationship or is someone making you feel afraid or unsafe? 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 Gender Identity Not on file Sexual Orientation Not on file documented as of this encounter Miscellaneous Notes * Telephone Encounter - Iza Bolton MA - 06/23/2023 9:38 AM CDT faxed * Telephone Encounter - Celena Mensah - 06/23/2023 9:[address] French office needs the EKG results to send over the cardiac clearance Fax [phone] documented in this encounter Plan of Treatment Not on file documented as of this encounter Visit Diagnoses Not on filedocumented in this encounter Care Teams Graphic Art Sales Representative Relationship Specialty [place] [address] [place] [phone] PCP - General Internal Medicine 06/12/22 documented as of this encounter
--- OUTSIDE RECORDS SUMMARY | 2024-03-23 01:50 | XMS_ITS | Encounter Summary ---
Author Organization [facility] Healthcare Address [address] [place] [address] Care Team Providers Care Private Equity Analyst Name Role Phone Fidencio French MD Primary Care Provider [phone] Reason for Visit * Reason Comments PT Initial Eval * Consultation (Routine) - Closed Specialty Diagnoses / Procedures Referred By Contac t Referred To Contact Physical Therapy Diagnoses Primary osteoarthritis of right knee Kamar Powell DO [facility] [address] [address] Phone: tel: fax: [facility] OP Physical Therapy [address] [place] [address] Phone: tel: fax: Referral ID Status Reason Start Date Expiration Date V isits Requested Visits Authorized [id number] Closed Specialty Services Required 05/14/2023 03/23/2024 1 99 Encounter Details Date Type Department Care Team (Late st Contact Info) Description 06/17/2023 12:45 PM CDT Therapy [facility] OP Physical Therapy [address] [place] [address] Chana Barraza, TAYO Primary osteoarthritis of right knee Social History Tobacco Use Types Packs/Day Years [...] on file 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 Pre-Op Total Knee Arthroplasty Physical Therapy Evaluation /Initial Certification 06/17/2023 Lindsay Pedersen 1955 68 y.o. female KAMAR POWELL ICD-9-CM ICD-10-CM 1. Primary osteoarthritis of right knee 715.16 M17.11 Ambulatory referral order to Physical Therapy- PT Diagnosis: right knee pain Past Medical History: Diagnosis Date Benign neoplasm of breast Blood in urine CKD (chronic kidney disease), stage III (HCC) DM2 (diabetes mellitus, type 2) ([facility]) Ear pain, bilateral 06/11/2023 Pt c/o swimmer's ear type pain at this time. GERD (gastroesophageal reflux disease) Occasional, R/T diet. History of iron deficiency anemia Hypertension Last menstrual period (LMP) > 10 days ago 1995 Motion sickness Osteoarthritis Proteinuria Past Surgical History: Procedure Laterality Date BREAST BIOPSY Right 2015 Benign BREAST BIOPSY Left 2008 Benign ECTOPIC SURGERY 1976 HYSTERECTOMY 1995 Precautions: falls Subjective Patient reports they will undergo a right TKA with Dr. powell on 07-01-23. Patient's history of knee pain began 2-3 yrs ago. Current pain ratin/10 At best pain ratin/10 At worst pain ratin/10 Exacerbating Factors: standing, walking, stairs, trying to sleep at night Relieving Factors: biofreeze, tylenol, pillows to prop leg Function Current Functional Deficits: difficulty grocery shopping, difficulty entering and exiting home, unable to do her own laundry due to it being in the basement Prior Level of Function: Independent with activities of daily living including household and community activities, driving, and all work-related responsibilities. Pt has a homemaker to go up and downsteps to do laundry, light housekeeping Occupation: retired Physical Work Requirements: na Anticipated Return to Work Date: na Equipment Used: st [employer] Lives in: single level house with 4 stairs to enter, 1 handrail. Lives with: alone Patient plans to go to [facility] or [facility] due to living alone after surgery. Pt will need a FWW. Pt has a homemaker service that may be able to help her with transportation after 2 weeks in [facility] to go to OP rehab. Pt has Stage 3 CKD and is concerned about her kidneys. Objective: Gait Assessment: antalgic gait RLE, cane in right hand, short distance ambulation, decreased weightshift onto the RLE, decreased nettie Knee AROM RIGHT LEFT Knee flexion 123 deg. 134 deg. Knee extension -5 deg. 0 deg. Leg Strength RIGHT LEFT Hip flexion 5/5 5/5 Hip abduction 4/5 4/5 Knee extension 4/5 5/5 Knee flexion 5/5 5/5 Assessment: Physical therapy evaluation only. Patient will undergo a total knee arthroplasty. Patient is appropriate for physical therapy evaluation only, discharged to independent home exercise program to prepare for total knee arthroplasty. The patient verbalized understanding to all education provided. Short term goals to be met by 06/18/23 Patient will verbalize understanding to all education provided today- met Patient able to ask questions regarding upcoming procedure - met Patient instructed in home exercises, proper use of assistive device, and stair training - met Treatment performed this date: Physical therapy evaluation focused on patient and caregiver education. The following topics were discussed and the patient verbalized understanding to all education provided. -Gait training with front wheeled walker as well as single point cane -Stair training and safe ascent/descent of stairs to enter the home -Wound care/ surgical incision care -Home exercises with TKA handout provided, to be performed pre- and post- operatively. See exercise handout. -Ice modality: 20 minutes at a time, 3-5 times per day -Progression from inpatient to home health therapy and then to outpatient physical therapy. -Plan of care following total knee arthroplasty, expectations, precautions. -Safe use of adaptive equipment, need for adaptive equipment in the home. -Safe positioning, avoiding a pillow underneath of the knee following surgery. Plan: Patient will benefit from skilled therapy services 1 times per week for 1 week for therapeutic exercise and patient education. The patient is discharged to a home exercise program at this time to prepare for upcoming surgery. Chana Barraza, PT [facility] ATTENTION PHYSICIAN If you are unable to electronically sign this document, please print this document and sign below to certify this plan of care/treatment plan. By signing this document, I certify that I have reviewedthis plan of care and support the treatment. Please fax back to . Thank you. Provider Signature: Date: documented in this encounter Plan of Treatment Not on file documented as of this encounter Visit Diagnoses Diagnosis Primary osteoarthritis of right knee documented in this encounter Orders Outpatient Referral Count Last Ordered Date st Ordered Date AMB REFERRAL ORDER TO PHYSICAL THERAPY 1 documented in this encounter Care Teams Private Equity Analyst Relationship Specialty Start [place] [address] [place] [phone] PCP - General Internal Medicine 06/12/22 documented as of this encounter
--- OUTSIDE RECORDS SUMMARY | 2024-03-23 01:50 | XMS_ITS | Encounter Summary ---
Author Organization [facility] Healthcare Address [address] [place] [address] Care Team Providers Care Fulfillment Mail Clerk Name Role Phone Fidencio French MD Primary Care Provider [phone] Reason for Visit * Reason Comments PT Treatment * Physical Therapy (Routine) - Closed Specialty Diagnoses / Procedures Referred By Kirt t Referred To Contact Physical Therapy Diagnoses Acute medial meniscus tear of right knee, initial encounter Kamar Gandara DO [address] [address] Phone: tel: fax: [facility] OP Physical Therapy [address] [place] [address] Phone: tel: fax: Referral ID Status Reason Start Date Expiration Date V isits Requested Visits Authorized [id number] Closed Specialty Services Required 12/09/2022 03/23/2023 12 99 Encounter Details Date Type Department Care Team (Late st Contact Info) Description 01/03/2023 12:45 PM CDT Therapy [facility] OP Physical Therapy [address] [place], [place] [phone] Trudy Early, INLAYER Acute medial meniscus tear of right knee, initial encounter (Primary Dx) Social History Tobacco Use Types Packs/Day Years Used Date Smoking Tobacco: Never Passive Smoke Exposure: Past Smokeless Tobacco: Never Alcohol Use Standard Drinks/Week Comments No 0 (1 standard drink = 0.6 oz pur e alcohol) Comments Unknown Sex and Gender Information Value Date Recorded Sex Assigned at Not on file 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 Acute medial meniscus tear of right knee, initial encounter 836.0 S83.241A FIDENCIO FRENCH PT Diagnosis: knee discomfort due to weakness, limited mobility and swelling Precautions: None Relevant Comorbidities: HTN Short-Term Goals: to be met by 01/06/23 Patient will be instructed in HEP Patient will improve knee extension mobility to 0 deg Patient will improve swelling in R quad to equal L quad side Long-Term Goals: to be met by 02/03/23 Patient will be independent in HEP (new and revised). Patient will improve strength in LEs to 4+/5 or > Patient will be able to navigate flight of stairs with reciprocal pattern to improve ability to perform laundry Patient will report 75% improvement with adls Patient Goal: get better PT Eval Date: 12-09-22 Orders : 02-03-23 Cert dates: From 12-09-22 to 02-03-23 Date Date Date Date Date Date 12-09-22 12/17/22 12/20/22 12/23/22 12/25/22 01/03/23 Visit Number 1 2 3 4 5 6 ADDITIONAL HEP SHEETS ISSUED Took time to review TENS unit Nu Step or Recumbent bike Level 4 for 5 minutes NT Nu step level x 8 min arms and legs Nustep 8 minutes legs only Nu-step 10 min's legs only Incline Stretch Hamstring Stretch 3x 10 sec 3 x 30 sec hold 3 x 30 sec hold NT time 30 sec x 3 done 3x30 sec 3x30 sec TKE manual stretch QS with TKE with blue fit ball 20x NT time NT 20x QS with TKE with blue fit ball 20x Qs with TKE with blue fit ball STM for swelling control NT NT NT Mat Table: SLR CLAMS BRIDGES SAQ HAMSTRING CURLS 10X 10X 10X 10x 2 each SLR 10x SLR with ER 6x Clamshells reviewed Bridging 10x NT 20x each mat exercises NT Stair Training NT time NT NT Leg Press NT time 4 holes showing 105 lbs 10 x 1 bilat done 105# 10x2 4 holes showing Hip Machine NT time 45 lbs abd and flex 10 x 1 done 45# abd/flex 10x1 [place] Hamstring curls 20 lbs - bilat 10 x 2 done 20# BLE 10x2 // bars: side steps, toe taps, heel raises, hip abd, hip ext, romberg, tandem, SL, etc NT time NT NT IFC with ice Next visit IFC/CP right knee NT, reviewed pt's home TENS unit use Done to end session in supine - If stim with CP done done Progress Note/Re-Cert * Trudy Early PTA - 01/03/2023 12:45 PM CDT Images from the original note were not included. Physical Therapy Visit/Daily Note 01/03/2023 Lindsay Pedersen 1955 ICD-9-CM ICD-10-CM 1. Acute medial meniscus tear of right knee, initial encounter 836.0 S83.241A FIDENCIO FRENCH Subjective: Pt reports she's feeling pretty good today, but reports she did not sleep well last night. Reports she just got a flu shot and her arm was hurting from that. Pt is reporting continued difficulty withascending and descending stairs to her basement and getting in and out of bed. Reports pain with standing long periods of time especially with cooking. Pain today is 2/10. Changes since last visit include none reported. Objective: Objective Measurement/Observation: pt arrived into department with no AD, slow but steady gait pattern Specific exercises and treatment interventions are outlined on exercise worksheet document. Treatment Performed on This Visit: Manual Therapy (body part and techniques): no Therapeutic Procedure/Exercise:Right knee strengthening and rom Modalities:IFC with ice right knee HEP given:reviewed Patient education:no Assessment: Patient tolerated today's treatment well and without incident. Patient demonstrates decreased strength and pain in right knee which is contributing to difficulty with sleeping at night and standing for long periods of time. Patient would benefit from additional skilled therapy services and demonstrates good prognosis to achieve stated goals. Goals Addressed This Visit: stg's Plan: Patient would benefit from the following modification on next visit: continue with current POC. Therapy will continue to address these impairments in order to progress towards functional goals. Trudy Early PTA [facility] ATTENTION PHYSICIAN If you are unable [...] as of this encounter Visit Diagnoses Diagnosis Acute medial meniscus tear of right knee, initial encounter- Primary documented in this encounter Care Teams Fulfillment Mail Clerk Relationship Specialty Start Date End Date Fidencio French MD [address] [place] [phone] PCP - General Internal Medicine 06/12/22 documented as of this encounter
--- OUTSIDE RECORDS SUMMARY | 2024-03-23 01:50 | XMS_ITS | Encounter Summary ---
Author Organization [facility] Healthcare Address [address] [place] [address] Care Team Providers Care Rfid Developer Name Role Phone Fidencio French MD Primary Care Provider [phone] Reason for Referral * Diagnostic Imaging (Routine) - Closed Specialty Diagnoses / Procedures Referred By Kirt t Referred To Contact Diagnoses Primary osteoarthritis of right knee Procedures XR Knee Right 3 Views Kamar Gandara DO [facility]0 [facility] [address] [place] [address] Phone: tel: fax: [address] [phone] Referral ID Status Reason Start Date Expiration Date Visits Re quested Visits Authorized [id number] Closed 05/12/2023 06/10/2024 1 1 ENTER RAILCAR Reason for Visit * Diagnostic Imaging (Routine) - Closed Specialty Diagnoses / Procedures Referred By Kirt carvalho Referred To Contact Diagnoses Primary osteoarthritis of right knee Procedures XR Knee Right 3 Views Kamar Gandara DO [address] [facility] [address] [place] [address] Phone: tel: fax: [address] [phone] Referral ID Status Reason Start Date Expiration Date Visits Re quested Visits Authorized [id number] Closed 05/12/2023 06/10/2024 1 1 Encounter Details Date Type Department Care Team (Latest Contact Info) Description 05/12/2023 3:12 PM CARPENTER RAILCAR - 05/12/2023 11:59 PM CARPENTER RAILCAR Hospital Encounter [facility] Di[facility] Imaging [address] [place] [address] Primary osteoarthritis of right knee Discharge Disposition: Discharge to home or self care Social History Tobacco Use Types Packs/Day Years Used Date Smoking Tobacco: Never Passive Smoke Exposure: Past Smokeless Tobacco: Never Alcohol Use Standard Drinks/Week Comments No 0 (1 standard drink = 0.6 oz pur e alcohol) Personal Safety Answer Date Recorded Getting School Help Needed Denies 03/12 Comments Unknown Sex and Gender Information Value Date Recorded Sex Assigned at Not on file 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 Gender Identity Not on file Sexual Orientation [...] tablet (10 mg total) by mouth daily atorvastatin (LIPITOR) 20 mg tablet Take 1 tablet (20 mg total) by mouth daily 10/20/2021 calcitRIOL (ROCALTROL) 0.25 mcg capsule Take 1 capsule (0.25 mcg total) by mouth daily ergocalciferol (VITAMIN D) 50,000 unit capsule Take 1 capsule (50,000 Units total) by mouth once a week losartan (COZAAR) 100 mg tablet Take 1 tablet (100 mg total) by mouth daily 3 02/23/2018 polyethylene glycol [id number] -5.86 gram solution Take 240 mL by mouth once 04/10/2023 bisacodyL (DULCOLAX) 10 mg suppositoryIndi cations:constip ation Insert 1 suppository (10 mg total) into the rectum daily 12 suppository 05/13/2022 fluticasone propionate (FLONASE) 50 mcg/actuation nasal spray USE 2 SPRAY(S) IN EACH NOSTRIL 1 TO 2 TIMES DAILY 07/12/2022 4 hydroCHLOROthia zide (HYDRODIURIL) 12.5 mg tablet Take 1 tablet (12.5 mg total) by mouth daily 12/21/2019 4 Linzess 72 mcg capsule Take 1 capsule (72 mcg total) by mouth daily 04/08/2023 4 Ozempic 0.25 mg or 0.5 mg (2 [...] VIEWS Schedule Routine, Read Routine (OP Routine) 05/12/2023 3:17 PM CARPENTER RAILCAR Primary osteoarthritis of right knee documented in this encounter Results * XR Knee Right 3 Views (05/12/2023 3:17 PM CARPENTER RAILCAR) Anatomical Region Laterality Modality Lower Extremities, Knee Right Computed Radiography 05/13/2023 9:12 AM CARPENTER RAILCAR Narrative 05/13/2023 9:39 AM CARPENTER RAILCAR EXAM DESCRIPTION: XR KNEE RIGHT 3 VIEWS REASON FOR STUDY: pain ?? General knee pain and swelling since fall today ? FINDINGS: Three views submitted with comparison 04/04/2022. No acute fractures are identified. ??There is [id number] medial predominant tricompartmental right knee osteoarthritis. ??A small knee effusion is present. ??Extensor mechanism enthesophytes are noted. ??Old left medial collateral ligament sprain is noted. IMPRESSION: Koed-ca-[id number] medial predominant tricompartmental right knee osteoarthritis with a small effusion. THIS IS AN ELECTRONICALLY VERIFIED FINAL REPORT 05/13/2023 9:39 AM - Electronically signed by ??Kwesi Kessler M.D. D: ??05/13/2023 9:39 AM T: Report ID: [id number] Reading Location: ??[id number] Procedure Note Kwesi Kessler MD - 05/13/2023 EXAM DESCRIPTION: XR KNEE RIGHT 3 VIEWS REASON FOR STUDY: pain General knee pain and swelling since fall today FINDINGS: Three views submitted with comparison 04/04/2022. No acute fractures are identified. There is hxwb-ln-snlowtyi medial predominant tricompartmental right knee osteoarthritis. A small kneeeffusion is present. Extensor mechanism enthesophytes are noted. Old left medial collateral ligament sprain is noted. IMPRESSION: Xtfg-xr-aeyuzeih medial predominant tricompartmental right knee osteoarthritis with a small effusion. THIS IS AN ELECTRONICALLY VERIFIED FINAL REPORT 05/13/2023 9:39 AM - Electronically signed by Kwesi Kessler M.D. T: Report ID: [id number] Reading Location: [place] [address] us Kamar Gandara DO IMG XR PROCEDURES Final Result documented in this encounter Visit Diagnoses Diagnosis Primary osteoarthritis of right knee documented in this encounter Care Teams Rfid Developer Relationship Specialty Start Date End Date Fidencio French MD [address] [place] [address] PCP - General Internal Medicine 06/12/22 documented as of this encounter
--- OUTSIDE RECORDS SUMMARY | 2024-03-23 01:50 | XMS_ITS | Encounter Summary ---
Author Organization [facility] Healthcare Address [address] [place] [address] Care Team Providers Care Farmworker General Name Role Phone Fidencio French MD Primary Care Provider [phone] Reason for Visit * Reason Comments PT Treatment * Physical Therapy (Routine) - Closed Specialty Diagnoses / Procedures Referred By Kirt t Referred To Contact Physical Therapy Diagnoses Acute medial meniscus tear of right knee, initial encounter Kamar Gandara DO [address] [address] Phone: tel: fax: [facility] Physical Therapy [address] [place] [id number] Phone: tel: fax: Referral ID Status Reason Start Date Expiration Date V isits Requested Visits Authorized [id number] Closed Specialty Services Required 12/09/2022 03/23/2023 12 99 Encounter Details Date Type Department Care Team (Late st Contact Info) Description 01/06/2023 12:45 PM CDT Therapy [facility] Physical Therapy [address] [place], [place] [id number] Trudy Early, DIABETES SPECIALIST Acute medial meniscus tear of right knee, [...] on file 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 Acute [...] 02-03-23 Date Date Date Date Date Date Date 12-09-22 12/17/22 12/20/22 12/23/22 12/25/22 01/03/23 01/06/23 Visit Number 1 2 3 4 5 6 7 ADDITIONAL HEP SHEETS ISSUED Took time to review TENS unit Nu Step or Recumbent bike Level 4 for 5 minutes NT Nu step level x 8 min arms and legs Nustep 8 minutes legs only Nu-step 10 min's legs only Nu-step LV 4 10 min's BLE's only Incline Stretch Hamstring Stretch 3x 10 sec 3 x 30 sec hold 3 x 30 sec hold NT time 30 sec x 3 done 3x30 sec 3x30 sec 3x30 sec 3x30 sec TKE manual stretch QS with TKE with blue fit ball 20x NT time NT 20x QS with TKE with blue fit ball 20x Qs with TKE with blue fit ball 20x QS with TKE with blue fit ball STM for swelling control NT NT NT NT Mat Table: SLR CLAMS BRIDGES SAQ HAMSTRING CURLS 10X 10X 10X 10x 2 each SLR 10x SLR with ER 6x Clamshells reviewed Bridging 10x NT 20x each mat exercises NT NT Stair Training NT time NT NT NT Leg Press NT time 4 holes showing 105 lbs 10 x 1 bilat done 105# 10x2 4 holes showing 105# 10x2 4 holes showing Hip Machine NT time 45 lbs abd and flex 10 x 1 done 45# abd/flex 10x1 NT [place] Hamstring curls 20 lbs - bilat 10 x 2 done 20# BLE 10x2 NT // bars: side steps, toe taps, heel raises, hip abd, hip ext, romberg, tandem, SL, etc NT time NT NT Side steps x2 lengths HR 2x10 HIP abd/ext x10 IFC with ice Next visit IFC/CP right knee NT, reviewed pt's home TENS unit use Done to end session in supine - If stim with CP done done Done Progress Note/Re-Cert * Trudy Eraly, DIABETES SPECIALIST - 01/06/2023 12:45 PM CDT Images from the original note were not included. Physical Therapy Visit/Daily Note 01/06/2023 Lindsay Pedersen 1955 ICD-9-CM ICD-10-CM 1. Acute medial meniscus tear of right knee, initial encounter 836.0 S83.241A FIDENCIO FRENCH Subjective: Pt reports increased pain after her visit on Friday, pt reports she had to take it easy over the weekend and did not do much. Pt reports she has a tens unit that she uses at home to help decrease herpain in the right knee. Pt is reporting continued difficulty with standing for long periods of timeand ascending and descending stairs. Pt reports she has not been doing her HEP faithfully. Pain today is 0/10. Changes since last visit include none reported. Objective: Objective Measurement/Observation: Pt arrived into department with no AD and no noted gait deviations, slow but steady gait pattern. Specific exercises and treatment interventions are outlined on exercise worksheet document. Treatment Performed on This Visit: Manual Therapy (body part and techniques): no Therapeutic Procedure/Exercise:right knee strengthening and rom Modalities:IFC with ice to right knee HEP given:reviewed Patient education:continue with HEP and ice at home Assessment: Patient tolerated today's treatment well and without incident. Patient demonstrates decreased strength and increased pain in the right knee which is contributing to difficulty with stair training and standing for long periods of time. Patient would benefit from additional skilled therapy services and demonstrates good prognosis to achieve stated goals. Goals Addressed This Visit: stg's Plan: Patient would benefit from the following modification on next visit: continue with current POC. Therapy will continue to address these impairments in order to progress towards functional goals. Trudy Early PTA [facility] ATTENTION PHYSICIAN If you are unable to [...] Primary documented in this encounter Care Teams Farmworker General Relationship Specialty Start Date End Date Fidencio French MD [address] [place] [address] PCP - General Internal Medicine 06/12/22 documented as of this encounter
--- OUTSIDE RECORDS SUMMARY | 2024-03-23 01:50 | XMS_ITS | Encounter Summary ---
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 Patient voiced understanding * Telephone Encounter - Virginie Berumen - 06/16/2023 10:26 AM CDT JAW Pt scheduled for surgery on 06/30. She originally told us she would go to her daughters house to stayafterwards but the more she thinks about it she would like to go to the rehab facility [place] [facility]. documented in this encounter Plan of Treatment Not on file documented as of this encounter Visit Diagnoses Not on filedocumented in this encounter Care Teams Wrapper Off Relationship Specialty Start Date End Date Fidencio French MD [address] [place], [place] [phone] PCP - General Internal Medicine 06/12/22 documented as of this encounter
--- OUTSIDE RECORDS SUMMARY | 2024-03-23 01:50 | XMS_ITS | Encounter Summary ---
Author Organization [facility] Healthcare Address [address] [place] [address] Care Team Providers Care Mortgage Coordinator Name Role Phone Fidencio French MD Primary Care Provider [phone] Dahlia Mendez Unavailable [phone] Reason for Visit * Auth/Cert (Routine) Specialty Diagnoses / Procedures Referred By Kirt t Referred To Contact Diagnoses Primary osteoarthritis of right knee Primary osteoarthritis of right knee [M17.11] Procedures MN ARTHRP KNE CONDYLE&PLATU MEDIAL&LAT COMPARTMENTS RIGHT TOTAL KNEE ARTHROPLASTY Referral ID Status Reason Start Date Expiration Date Visits Re quested Visits Authorized [id number] 1 1 Encounter Details Date Type Department Care Team (Late st Contact Info) Description 07/01/2023 12:37 PM CDT Anesthesia Event [address] [address] Carlos Becerril DO [address] [place] [address] [facility] [place] [address] Anesthesia Record Procedure Summary Procedure Name Responsible Anesthesiologist Anesthesia Start Time Anesthesia Stop Time RIGHT TOTAL KNEE ARTHROPLASTY (Right: Knee) Carlos Becerril DO 07/01/23 1237 07/01/23 1441 Events Date Time Event Comment 07/01/2023 1146 Time out - Regional 1146 Face Time 1159 Block Placed 1237 In Room 1237 An Start 1237 An Start Data 1244 An Induction The patient was reevaluated immediately before moderate or deep sedation use and before anesthesia induction. 1247 An Intubation 1257 Anesthesia Ready 1306 Proc Start 1430 Proc Fin 1434 An Extubation 1437 an stop data 1438 Out of Room 1441 Handoff to RN I completed my handoff to the receiving nurse during which we: 1. Patient identified 2. Responsible provider identified 3. Pertinent medical history reviewed 4. Procedure type and surgical course discussed 5. Intraoperative anesthetic management and any significant issues discussed 6. Expectations and concerns for postop period discussed 7. Questions solicited from receiving nurse 8. Patient disposition at the time of handoff: No value filed. 1441 An Stop Meds Name Total midazolam injection 2 mg/2 mL 2 mg fentaNYL 50 mcg/mL PF 200 mcg lidocaine (cardiac) syringe 2 % 40 mg propofol 150 mg rocuronium 50 mg ondansetron PF 4 mg dexamethasone 4 mg/mL 4 mg ceFAZolin (ANCEF) 2,000 mg/20 mL in ster ile water (premix) 2,000 mg 2,000 mg ropivacaine 0.5% PF 30 mL tranexamic acid 2,000 mg HYDROmorphone 2 mg/mL 0.5 mg sugammadex 200 mg Lactated Ringer's (LR) infusion 500 mL * Agents Name O2% N2O O2 N2O Air Sevoflurane Inspired Sevoflurane * Blood No blood administrations on file. Lines, Drains, and Airways Type Details Placement Removal Peripheral IV Placement Date: 07/01/23; Placement Time: 1125; Catheter Size: 22 G; Orientation: Posterior, Right; Location: Hand; Technique: Anatomical landmarks; Inserted by: [email or web address]; Insertion Attempts: 4; Patient Tolerance: Tolerated poorly 07/01/23 1125 by Brianne Brice NP Urethral Catheter Placement Date: 07/01/23; Placement Time: 1300; Inserted by: effie barraza; Type: Double-lumen, Latex; Balloon Size: 10 mL; Urine Returned: Yes; Removal Date: 07/02/23; Removal Time: 0449; Removal Reason: Per order 07/01/23 1300 by Mariah Harrell RN 07/02/23 0449 by Carlita Irby RN ETT Placement Date: 07/01/23; Placement Time: 1304 (created via procedure documentation); Mask Ventilation: 2; Technique: Direct laryngoscopy; Type: ETT - single; Single Lumen Tube Size: 7 mm; Cuffed: Yes; Laryngoscope: Guillory; Blade Size: 2; Location: Oral; Grade View: Grade I; Placement Verification: Auscultation, Capnometry; Removal Date: 07/01/23; Removal Time: 143307/01/23 1304 by Marisela Nance CRNA 07/01/23 1434 by Marisela Nance CRNA RETIRED Surgical Site 07/01/23; 1333; No ; Anterior, Right; Knee; 02/24/24 (Retired LDA, Removed/Completed by [employer] with LDA Utility); 1213 (Retired LDA, Removed/Completed by [employer] with LDA Utility) 07/01/23 1333 by Mariah Harrell RN 02/24/24 1213 by Discharge Provider, Automatic documented in this encounter Social History Tobacco Use Types Packs/Day Years Used Date Smoking Tobacco: Never Passive Smoke Exposure: Past Smokeless Tobacco: Never Alcohol Use Standard Drinks/Week Comments No 0 (1 standard drink = 0.6 oz pur e alcohol) [facility] Utilities Answer Date Recorded In the past 12 months has [employer], gas, oil, or water [employer] threatened to shut off services in your [...] week 07/02/2023 How often do you attend [facility] or [facility] services? 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 Gender Identity Not on file Sexual Orientation Not on file documented as of this encounter OR Notes * Anesthesia Postprocedure Evaluation - Carlos Becerril, - 07/01/2023 3:13 PM CDT Patient: Lindsay Pedersen Procedure Summary Date: 07/01/23 Room / Location: [facility] OPERATING ROOM 18 / [facility] OPERATING ROOM Anesthesia Start: 1237 Anesthesia Stop: 1441 Procedure: RIGHT TOTAL KNEE ARTHROPLASTY (Right: Knee) Diagnosis: Primary osteoarthritis of right knee (Primary osteoarthritis of right knee [M17.11]) Surgeons: Kamar Gandara DO Responsible Provider: Carlos Becerril DO Anesthesia Type: general, regional for postop pain per surgeon request ASA Status: 3 Anesthesia Type: general, regional for postop pain per surgeon request Last vitals BP 130/68 (BP Location: Left arm, Patient Position: Lying) Pulse 86 Temp 36.6 ??C (97.8 ??F) (Temporal) Resp 16 SpO2 95% Anesthesia Post Evaluation Patient location during evaluation: PACU Patient participation: complete - patient participated Level of consciousness: fully awake Pain score: 3 Pain management: satisfactory to patient Airway patency: adequate and patent Evidence of recall: no Cardiovascular status: hemodynamically stable Respiratory status: acceptable and room air Hydration status: acceptable Pt is: normothermic Nausea/Vomiting status: none No notable events documented. * Anesthesia Procedure Notes - Marisela Nance CRNA - 07/01/2023 1:03 PM CDTAssociated Order(s): Airway Airway Patient location: OR Urgency: elective Indications for airway management: anesthesia Difficult airway: no Staff: Placed by: POTTERY DECORATOR: Marisela Nance CRNA Emergent airway documentation: Risks and benefits discussed: yes Consent obtained: yes Consent given by: patient Airway prep: Preoxygenated: yes Patient position: sniffing Mask difficulty assessment: 2 - vent by mask + OA or adjuvant Spontaneous ventilation during airway: absent Sedation level during airway: deep Final airway details: Final airway type: endotracheal airway Tube type: ETT ETT size: 7.0 mm Cuffed: yes Technique used for successful ETT placement: direct laryngoscopy Devices/Methods used in placement: intubating stylet Insertion site: oral Blade type: Guillory Blade size: 2 Cormack-Lehane (direct): grade I - full view of glottis Cuff volume: 6 mL Cuff inflated with: air ETT to lips: 21 cm Placement verified by: auscultation and CO2 detection Airway secured with: silk tape * Anesthesia Procedure Notes - Carlos Becerril DO - 07/01/2023 12:20 PM CDT Associated Order(s): Peripheral Block Peripheral Block Patient location during procedure: pre-op holding End time: 07/01/2023 12:02 PM Reason for block: post-op pain management per surgeon request Ultrasound image in chart or stored: yes Block type: single shot Laterality: right Block type: femoral nerve block (distal mid thigh ) Staff: Placed by: Anesthesiologist: Carlos Becerril DO Procedure prep: Preprocedure checklist: patient identified, procedure contraindications assessed, site marked, procedure consent, surgical consent, IV checked, risks, benefits and alternatives discussed, monitors and equipment checked and timeout performed Patient position: supine Procedure performed while patient: sedate with meaningful contact Monitoring: ECG, oximetry and blood pressure Supplemental O2: nasal cannula Prep solution: chlorhexidine/alcohol PPE: provider hat/mask, sterile gloves, sterile probe cover and gel and sterile drape Skin infiltrated with lidocaine 1%: yes Peripheral nerve block: Technique: ultrasound guided Needle type: insulated, short-bevel and echogenic Needle gauge: 20 G Needle length: 100 mm Injection assessment: injection made incrementally with constant monitoring, negative aspiration for heme, no paresthesias noted, normal resistance to injection, see flowsheet for medication details and local visualized surrounding nerve on ultrasound Assessment: Block success: full evaluation pending Events: patient tolerated procedure well with no complications * Anesthesia Procedure Notes - Carlos Becerril DO - 07/01/2023 12:19 PM CDT Associated Order(s): Peripheral Block Peripheral Block Patient location during procedure: pre-op holding End time: 07/01/2023 11:56 AM Reason for block: post-op pain management per surgeon request Ultrasound image in chart or stored: yes Block type: single shot Laterality: right Block type: IPACK Staff: Placed by: Anesthesiologist: Carlos Becerril DO Procedure prep: Preprocedure checklist: patient identified, procedure contraindications assessed, site marked, procedure consent, surgical consent, IV checked, risks, benefits and alternatives discussed, monitors and equipment checked and timeout performed Patient position: left lateral decubitus Procedure performed while patient: sedate with meaningful contact Monitoring: ECG, oximetry and blood pressure Supplemental O2: nasal cannula Prep solution: chlorhexidine/alcohol PPE: provider hat/mask, sterile gloves and sterile probe cover and gel Skin infiltrated with lidocaine 1%: yes Peripheral nerve block: Technique: ultrasound guided Needle type: echogenic, short-bevel and insulated Needle gauge: 20 G Needle length: 100 mm Injection assessment: injection made incrementally with constant monitoring, local visualized surrounding nerve on ultrasound, negative aspiration for heme, normal resistance to injection and see flowsheet for medication details Assessment: Block success: full evaluation pending Events: patient tolerated procedure well with no complications * Anesthesia Preprocedure Evaluation - Carlos Becerril DO - 06/11/2023 10:15 AM CDT Images from the original note were not included. Anesthesia Evaluation Lindsay Pedersen is a 68 y.o. female RIGHT TOTAL KNEE ARTHROPLASTY (Right: Knee) Pre-Op Diagnosis Codes: * Primary osteoarthritis of right knee [M17.11] HISTORY HPI Medical history significant for hypertension, hyperlipidemia, GERD, arthritis, type 2 diabetes, andobesity. Patient presents today for surgical clearance for a right total knee per on July 01, 2023. Past Medical History Information obtained from: patient. Cardiovascular + Hypertension + Hyperlipidemia Gastrointestinal + GERD Musculoskeletal/Pain + Osteoarthritis Endocrine / Other + Diabetes mellitus - Diabetes type 2. + Obesity (BMI >30) Functional Capacity Functional capacity: ambulates with assistance only Comments: Uses can for ambulation Review of Systems + chipped/loose teeth Pertinent negatives: productive cough; SOB; recent cold/flu; fever; chest pain; previous transfusion; dysphagia and dentures/partials Patient Active Problem List Diagnosis Date Noted ??? Primary osteoarthritis of right knee 05/13/2023 ??? Closed fracture of metatarsal bone 12/26/2022 ??? Fracture of lower leg 12/26/2022 ??? Tibialis tendinitis 12/26/2022 ??? Type 2 diabetes mellitus without complication (CMS/HCC) (HCC) 12/05/2022 ??? Kidney disease 09/11/2022 ??? Skin lesion of breast 06/25/2022 ??? Mass of right breast 06/14/2022 ??? Gastroesophageal reflux disease 06/06/2022 ??? Hyperlipidemia 06/06/2022 ??? Lymphedema of lower extremity 06/06/2022 ??? Obesity 06/06/2022 ??? Sleep apnea 06/06/2022 ??? Tear of meniscus of knee 06/06/2022 ??? Family history of breast cancer 01/03/2021 ??? Diabetes mellitus (HCC) 01/06/2020 ??? Axillary lymphadenopathy 12/31/2019 ??? Sebaceous cyst of left axilla 12/31/2019 ??? BI-RADS category 3 mammogram result 12/31/2019 ??? Breast cancer screening 04/29/2019 ??? Anemia 11/03/2018 ??? Leukocytosis 11/03/2018 ??? Chronic renal insufficiency, stage III (moderate) (HCC) 10/26/2018 ??? Benign neoplastic disease 05/07/2016 ??? Proteinuria 06/18/2012 ??? Essential hypertension 06/18/2012 ??? Blood in urine 06/18/2012 Past Medical History: Diagnosis Date ??? Benign neoplasm of breast ??? Blood in urine ??? CKD (chronic kidney disease), stage III (HCC) ??? DM2 (diabetes mellitus, type 2) (HCC) ??? Ear pain, bilateral 06/11/2023 Pt c/o swimmer's ear type pain at this time. ??? GERD (gastroesophageal reflux disease) Occasional, R/T diet. ??? History of iron deficiency anemia ??? Hypertension ? ? Last menstrual period (LMP) > 10 days ago 1995 ??? Motion sickness ??? Osteoarthritis ??? Proteinuria Past Surgical History: Procedure Laterality Date ??? BREAST BIOPSY Right 2015 Benign ??? BREAST BIOPSY Left 2008 Benign ??? ECTOPIC SURGERY 1975 ??? HYSTERECTOMY 1995 OB History No obstetric history on file. Allergies Allergen Reactions ??? Shrimp Swelling and Swollen tongue ??? Shellfish Containing Products Swelling Taking? Last Dose Start Date End Date Provider Accu-Chek Guide Me Glucose Mtr misc -- 03/24/23 -- Lorena Alvarez MD Accu-Chek Guide test strips strip -- 04/29/22 -- Lorena Alvarez MD Accu-Chek Softclix Lancets lancets -- 04/29/22 -- Lorena Alvarez MD amLODIPine (NORVASC) 10 mg tablet -- -- -- Lorena Alvarez MD atorvastatin (LIPITOR) 20 mg tablet -- 10/20/21 -- Lorena Alvarez MD calcitRIOL (ROCALTROL) 0.25 mcg capsule -- -- -- Lorena Alvarez MD dapagliflozin propanediol (Farxiga) 10 mg tablet -- -- -- Lorena Alvarez MD ergocalciferol (VITAMIN D) 50,000 unit capsule -- -- -- Lorena Alvarez MD losartan (COZAAR) 100 mg tablet -- 02/23/18 -- Lorena Alvarez MD Ozempic 0.25 mg or 0.5 mg (2 mg/3 mL) pen injector injection -- 05/03/23 -- Lorena Alvarez MD polyethylene glycol [id number] -5.86 gram solution -- 04/10/23 -- Lorena Alvarez MD -- -- -- -- -- Current Outpatient Medications: ??? Accu-Chek Guide Ny Glucose Mtr [facility] ??? Accu-Chek Guide test strips strip ??? Accu-Chek Softclix Lancets lancets ??? amLODIPine (NORVASC) 10 mg tablet ??? atorvastatin (LIPITOR) 20 mg tablet ??? calcitRIOL (ROCALTROL) 0.25 mcg capsule ??? dapagliflozin propanediol (Farxiga) 10 mg tablet ??? ergocalciferol (VITAMIN D) 50,000 unit capsule ??? losartan (COZAAR) 100 mg tablet ??? Ozempic 0.25 mg or 0.5 mg (2 mg/3 mL) pen injector injection ??? polyethylene glycol [id number] -5.86 gram solution Social History Tobacco Use Smoking Status Never ??? Passive exposure: Past Smokeless Tobacco Never Alcohol Use: Not At Risk (06/11/2023) AUDIT-C ??? Frequency of Alcohol Consumption: Never ??? Average Number of Drinks: Not on file ??? Frequency of Binge Drinking: Not on file Substance and Sexual Activity Drug Use Never Family History Problem Relation Age of Onset ??? Breast cancer Sister Adenocarcinoma of breast - (Added by TW Conv) ??? Breast cancer Father's Sister PAT Physical Exam Airway Exam: Mallampati: I Cervical ROM: FROM TM distance: 3 Cardiovascular Exam: Rate: regular Rhythm: regular Negative for Murmur Pulmonary Exam: LCTA, bilat EENT Exam: trachea midline Dental Exam: Chipped Current state: Patient's current state is cooperative. Additional comments: Labs evaluated with no acute findings or concerns noted. Patient educated regarding the anesthesia process on the day of surgery. Discussed holding of diabetes medication, which patient stated understanding. All questions were answered prior to patient being discharged from [facility]. Patient is cleared for surgery. Vitals: 06/11/23 0939 BP: 140/71 Comment: rt upper arm Pulse: 90 Resp: 14 Temp: 36.2 ??C (97.2 ??F) SpO2: 100% PT: No results found for requested labs within last 30 days. INR: No results found for requested labs within last 30 days. APTT: No results found for requested labs within last 30 days. Hgb A1C: 06/11/2023: 6.3 % (H) CBC RBC: 06/11/2023: 4.79 M/cumm RDW: No results found for requested labs within last 30 days. MCHC: 06/11/2023: 31.8 g/dL (L) MCH: 06/11/2023: 26.7 pg (L) MCV: 06/11/2023: 83.9 fL Hct: 06/11/2023: 40.2 % Hgb: 06/11/2023: 12.8 g/dL WBC: 06/11/2023: 9.6 K/cumm MPV: 06/11/2023: 10.1 fL Platelets: 06/11/2023: 292 K/cumm RDW CV: 06/11/2023: 15.9 % (H) RDW Sd: 06/11/2023: 48.3 fL (H) BMP Glucose: 06/11/2023: 100 mg/dL Calcium: 06/11/2023: 9.2 mg/dL Sodium: 06/11/2023: 137 mmol/L Potassium: 06/11/2023: 3.8 mmol/L CO2: 06/11/2023: 25 mmol/L Chloride: 06/11/2023: 102 mmol/L BUN: 06/11/2023: 16 mg/dL Creatinine: 06/11/2023: 1.10 mg/dL DOS Physical Exam Medical history, medications, and allergies reviewed. Attestation: This PAT evaluation 07/01/2023. Airway Exam: Mallampati: I Cervical ROM: FROM Cardiovascular Exam: Rate: regular Rhythm: regular Pulmonary Exam: LCTA, bilat EENT Exam: trachea midline Dental Exam: Chipped Skin Exam: Skin is warm and dry. Turgor is normal. Current state: Patient's current state is cooperative. Anesthesia Plan ASA 3 My patient is approved for the Anesthesia Controlled Medication protocol when under care of a POTTERY DECORATOR Planned anesthesia: General and regional for postop pain per surgeon request Team communication plan: oral ET tube Induction: Induction: intravenous. Postoperative Plan: Postoperative administration opioids intended. Patient's planned disposition post procedure is Floor. Informed Consent: Discussed plan with POTTERY DECORATOR. Anesthesia plan and risks discussed with patient. Consent and Attending signature: I and/or my designee have discussed the anesthesia plan, benefits, possible alternatives, parental presence at time of induction (if indicated), and clinically relevant risks that may include dental injury, unintentional awareness, and/or other complications. The patient and/or parent/legal guardian understand, and agree to proceed. All questions answered. documented in this encounter Plan of Treatment Not on file documented as of this encounter Procedures Procedure Name Priority Date/Time Associated Diagnosis Comments MN AN PROCEDURE PLACEHOLDER Routine 07/01/2023 1:03 PM CDT MN AN ELECTIVE ENDOTRACHEAL AIRWAY Routine 07/01/2023 1:03 PM CDT MN AN PROCEDURE PLACEHOLDER Routine 07/01/2023 12:20 PM CDT MN AN PROCEDURE PLACEHOLDER Routine 07/01/2023 12:19 PM CDT documented in this encounter Results * MN AN ELECTIVE ENDOTRACHEAL AIRWAY, MN AN PROCEDURE PLACEHOLDER (07/01/2023 1:03 PM CDT) Narrative Marisela Nance CRNA - 07/01/2023 1:03 PM CDT Marisela Nance CRNA ? 07/01/2023 ??1:04 PM Airway Patient location: OR Urgency: elective Indications for airway management: anesthesia Difficult airway: no Staff: Placed by: POTTERY DECORATOR: Marisela Nance CRNA Emergent airway documentation: Risks and benefits discussed: yes Consent obtained: yes Consent given by: patient Airway prep: Preoxygenated: yes Patient position: sniffing Mask difficulty assessment: 2 - vent by mask + OA or adjuvant Spontaneous ventilation during airway: absent Sedation level during airway: deep Final airway details: Final airway type: endotracheal airway Tube type: ETT ETT size: 7.0 mm Cuffed: yes Technique used for successful ETT placement: direct laryngoscopy Devices/Methods used in placement: intubating stylet Insertion site: oral Blade type: Guillory Blade size: 2 Cormack-Lehane (direct): grade I - full view of glottis Cuff volume: 6 mL Cuff inflated with: air ETT to lips: 21 cm Placement verified by: auscultation and CO2 detection Airway secured with: silk tape us Carlos Becerril DO ANESTHESIA ORDERABLES Final R esult * MN AN PROCEDURE PLACEHOLDER (07/01/2023 12:20 PM CDT) Narrative Carlos Becerril DO - 07/01/2023 12:20 PM CDT Carlos Becerril, ? 07/01/2023 12:21 PM Peripheral Block Patient location during procedure: pre-op holding End time: 07/01/2023 12:02 PM Reason for block: post-op pain management per surgeon request Ultrasound image in chart or stored: yes Block type: single shot Laterality: right Block type: femoral nerve block (distal mid thigh ) Staff: Placed by: Anesthesiologist: Carlos Becerril DO Procedure prep: Preprocedure checklist: patient identified, procedure contraindications assessed, site marked, procedure consent, surgical consent, IV checked, risks, benefits and alternatives discussed, monitors and equipment checked and timeout performed Patient position: supine Procedure performed while patient: sedate with meaningful contact Monitoring: ECG, oximetry and blood pressure Supplemental O2: nasal cannula Prep solution: chlorhexidine/alcohol PPE: provider hat/mask, sterile gloves, sterile probe cover and gel and sterile drape Skin infiltrated with lidocaine 1%: yes Peripheral nerve block: Technique: ultrasound guided Needle type: insulated, short-bevel and echogenic Needle gauge: 20 G Needle length: 100 mm Injection assessment: injection made incrementally with constant monitoring, negative aspiration for heme, no paresthesias noted, normal resistance to injection, see flowsheet for medication details and local visualized surrounding nerve on ultrasound Assessment: Block success: full evaluation pending Events: patient tolerated procedure well with no complications Carlos Becerril DO ANESTHESIA ORDERABLES Final R esult * MN AN PROCEDURE PLACEHOLDER (07/01/2023 12:19 PM CDT) Narrative Carlos Becerril DO - 07/01/2023 12:19 PM CDT Carlos Becerril DO ? 07/01/2023 12:20 PM Peripheral Block Patient location during procedure: pre-op holding End time: 07/01/2023 11:56 AM Reason for block: post-op pain management per surgeon request Ultrasound image in chart or stored: yes Block type: single shot Laterality: right Block type: IPACK Staff: Placed by: Anesthesiologist: Carlos Becerril DO Procedure prep: Preprocedure checklist: patient identified, procedure contraindications assessed, site marked, procedure consent, surgical consent, IV checked, risks, benefits and alternatives discussed, monitors and equipment checked and timeout performed Patient position: left lateral decubitus Procedure performed while patient: sedate with meaningful contact Monitoring: ECG, oximetry and blood pressure Supplemental O2: nasal cannula Prep solution: chlorhexidine/alcohol PPE: provider hat/mask, sterile gloves and sterile probe cover and gel Skin infiltrated with lidocaine 1%: yes Peripheral nerve block: Technique: ultrasound guided Needle type: echogenic, short-bevel and insulated Needle gauge: 20 G Needle length: 100 mm Injection assessment: injection made incrementally with constant monitoring, local visualized surrounding nerve on ultrasound, negative aspiration for heme, normal resistance to injection and see flowsheet for medication details Assessment: Block success: full evaluation pending Events: patient tolerated procedure well with no complications Carlos Becerril DO ANESTHESIA ORDERABLES Final R esult documented in this encounter Visit Diagnoses Not on filedocumented in this encounter Administered Medications Inactive Administered Medications - up to 3 most recent administrations Medication Order MAR Action Action Date Dose Rate Site ceFAZolin (ANCEF) 2,000 mg/20 mL in sterile water (premix) 2,000 mg 2,000 mg, intravenous, at 400 mL/hr, Administer over 3 Minutes, Once, On Fri07/01/23 at 1130, For 1 dose, Pre-Op, Administer within 60 minutes of incision., Indications: Prophylaxis, SurgicalIndications:Prophylaxis , Surgical Given 07/01/2023 12:50 PM CDT 2,000 mg dexAMETHasone (DECADRON) 4 mg/mL injection intravenous, Administer over 2 Minutes, As needed, Starting on Fri07/01/23 at 1258, Anesthesia Intra-op Given 07/01/2023 12:58 PM CDT 4 mg fentaNYL (SUBLIMAZE) preservative free injection intravenous, As needed, Starting on Fri07/01/23 at 1149, Anesthesia Intra-op Given 07/01/2023 1:08 PM CDT 50 mcg Given 07/01/2023 12:44 PM CDT 50 mcg Given 07/01/2023 11:49 AM CDT 100 mcg HYDROmorphone (DILAUDID) injection intravenous, Administer over 2 Minutes, As needed, Starting on Fri07/01/23 at 1320, Anesthesia Intra-op Given 07/01/2023 1:20 PM CDT 0.5 mg Lactated Ringer's (LR) infusion 30 mL/hr, intravenous, Continuous, Starting on Fri07/01/23 at 1130, Pre-Op Rate/Dose Verify 07/01/2023 12:37 PM CDT 30 mL/hr New Bag 07/01/2023 11:28 AM CDT 30 mL/hr 30 mL/hr lidocaine (cardiac) (XYLOCAINE) preservative free injection intravenous, As needed, Starting on Fri07/01/23 at 1244, Anesthesia Intra-op, Indications: Ventricular ArrhythmiasIndications:Ventricular Arrhythmias Given 07/01/2023 12:44 PM CDT 40 mg midazolam (VERSED) 1 mg/mL injection intravenous, As needed, Starting on Fri07/01/23 at 1149, Anesthesia Intra-op Given 07/01/2023 11:49 AM CDT 2 mg ondansetron (ZOFRAN) injection intravenous, Administer over 2 Minutes, As needed, Starting on Fri07/01/23 at 1258, Anesthesia Intra-op Given 07/01/2023 12:58 PM CDT 4 mg propofoL (DIPRIVAN) 10 mg/mL IV intravenous, As needed, Starting on Fri07/01/23 at 1244, Anesthesia Intra-op New Bag 07/01/2023 12:44 PM CDT 150 mg rocuronium (ZEMURON) injection intravenous, As needed, Starting on Fri07/01/23 at 1244, Anesthesia Intra-op Given 07/01/2023 12:44 PM CDT 50 mg ROPivacaine (NAROPIN) 5 mg/mL (0.5 %) preservative free injection other, As needed, Starting on Fri07/01/23 at 1155, Anesthesia Intra-op Given 07/01/2023 12:00 PM CDT 16 mL Given 07/01/2023 11:55 AM CDT 14 mL sugammadex (BRIDION) 100 mg/mL intravenous solution intravenous, As needed, Starting on Fri07/01/23 at 1416, Anesthesia Intra-op Given 07/01/2023 2:16 PM CDT 200 mg tranexamic acid (CYKLOKAPRON) 1,000 mg/10 mL (100 mg/mL) solution intravenous, As needed, Starting on Fri07/01/23 at 1256, Anesthesia Intra-op Given 07/01/2023 2:06 PM CDT 1,000 mg Given 07/01/2023 12:56 PM CDT 1,000 mg documented in this encounter Care Teams Mortgage Coordinator Relationship Specialty Start Date End Date Fidencio French MD [address] [place] [address] PCP - General Internal Medicine 06/12/22 Dahlia Mendez PA [address] [facility] [address] [address] Orthopedic Surgery 07/01/23 documented as of this encounter
--- OUTSIDE RECORDS SUMMARY | 2024-03-23 01:50 | XMS_ITS | Encounter Summary ---
Author Organization [facility] Healthcare Address [address] [place] [address] Care Team Providers Care Advisor Consultant Name Role Phone Fidencio French MD Primary Care Provider [phone] Reason for Referral * Consultation (Routine) - Closed Specialty Diagnoses / Procedures Referred By Kirt t Referred To Contact Physical Therapy Diagnoses Primary osteoarthritis of right knee Kamar Gandaar DO [address] [place] [address] Phone: tel: fax: [facility] OP Physical Therapy [address] [place] [address] Phone: tel: fax: Referral ID Status Reason Start Date Expiration Date V isits Requested Visits Authorized [id number] Closed Specialty Services Required 05/14/2023 03/23/2024 1 99 Question Answer PTRFR PT Evaluate and Treat Therapy options discussed with patient? Yes Location provided for therapy services is: Patient requested/Patient preferred Please select the performing region: [facility] [[id number]] Please select the performing department: [facility] ON OP PT [[id number]] # of visits: 1 Comments Pre op total joint training HELP DESK ANALYST Encounter Details Date Type Department Care Team (Late st Contact Info) Description 05/14/2023 Orders Only [facility] Medical Group Orthopedics and Sports Medicine [address] [place], [place] [phone] Erick Gandarason, [address] [facility] [address] [place] [address] Primary osteoarthritis of right knee (Primary Dx) Social History Tobacco Use Types Packs/Day Years Used Date Smoking Tobacco: Never Passive Smoke Exposure: Past Smokeless Tobacco: Never Alcohol Use Standard Drinks/Week Comments No 0 (1 standard drink = 0.6 oz pur e alcohol) Personal Safety Answer Date Recorded Getting School Help Needed Not on file 05/14 Comments Unknown Sex and Gender Information Value Date Recorded Sex Assigned at Not on file Legal Sex Female 5:35 PM IT HELP 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 ANALYST Gender Identity Not on file Sexual Orientation Not on file documented as of this encounter Plan of Treatment Scheduled Referrals Name Type Priority Associated Diagnoses Orde r Schedule Ambulatory referral order to Physical Therapy - Outpatient Referral Routine Primary osteoarthritis of right knee Expected: 05/28/2023 (Approximate), Expires: 05/14/2024 documented as of this encounter Visit Diagnoses Diagnosis Primary osteoarthritis of right knee- Primary documented in this encounter Care Teams Advisor Consultant Relationship Specialty Start Date End Date Fidencio French MD [address] [place] [address] PCP - General Internal Medicine 06/12/22 documented as of this encounter
--- OUTSIDE RECORDS SUMMARY | 2024-03-23 01:50 | XMS_ITS | Encounter Summary ---
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
--- OUTSIDE RECORDS SUMMARY | 2024-03-23 01:50 | XMS_ITS | Encounter Summary ---
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
--- OUTSIDE RECORDS SUMMARY | 2024-03-23 01:50 | XMS_ITS | Encounter Summary ---
Author Organization [facility] Healthcare Address [address] [place] [address] Care Team Providers Care Nurse Technician Name Role Phone Fidencio French MD Primary Care Provider [phone] Reason for Visit * Reason Onset Date Comments medication request 05/13/2023 Encounter Details Date Type Department Care Team (Late st Contact Info) Description 05/13/2023 Telephone [facility] Medical Group Orthopedics and Sports Medicine [address] [place] [phone] Kamar Gandara DO [address] [place] [phone] medication request Social History Tobacco Use Types Packs/Day Years [...] on file 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 30 patch 05/14/2023 documented in this encounter Miscellaneous Notes * Telephone Encounter - Bedford, Cynthia Karla, MA - 05/14/2023 8:04 AM LEATHER GRADER Script sent HER GRADER * Telephone Encounter - Bethany Baird - 05/13/2023 9:06 AM CST JAW Patient states that Dr. Gandara recommended lidocaine patches Please send a prescription to her pharmacy [facility] [address] [facility] HER GRADER documented in this encounter Plan of Treatment Not on file documented as of this encounter Visit Diagnoses Diagnosis Primary osteoarthritis of right knee- Primary documented in this encounter Care Teams Nurse Technician Relationship Specialty Start Date End Date Fidencio French MD [address] [place] [address] PCP - General Internal Medicine 06/12/22 documented as of this encounter
--- OUTSIDE RECORDS SUMMARY | 2024-03-23 01:50 | XMS_ITS | Encounter Summary ---
Author Organization [facility] Healthcare Address [address] [place] [address] Care Team Providers Care Arabic Professor Name Role Phone Fidencio French MD Primary Care Provider [phone] Reason for Referral * Diagnostic Imaging (Routine) - Closed Specialty Diagnoses / Procedures Referred By Kirt t Referred To Contact Diagnoses Primary osteoarthritis of right knee Procedures XR Knee Right 3 Views Kamar Gandara DO [address] [place] [address] DR DAWKINS [address] [place] [address] Phone: tel: fax: [address] [phone] Referral ID Status Reason Start Date Expiration Date Visits Re quested Visits Authorized [id number] Closed 05/12/2023 06/10/2024 1 1 STING GEAR OPERATOR Reason for Visit * Reason Comments Pain Encounter Details Date Type Department Care Team (Late st Contact Info) Description 05/12/2023 3:15 PM ARRESTING GEAR OPERATOR Office Visit [facility] Medical Group Orthopedics and Sports Medicine [address] [place] [address] [place] [phone] Kamar Gandara DO [address] [place] [address] DR DAWKINS [address] [place] [phone] Primary osteoarthritis of right knee (Primary Dx) [...] on file Legal Sex Female 5:35 PM ARRESTING GEAR OPERATOR Gender Identity Not on file Sexual Orientation Not on file documented as of this encounter Progress Notes * Kamar Gandara, - 05/12/2023 3:15 PM CST Images from the original note were not included. NEW PATIENT VISIT Subjective CHIEF COMPLAINT She had concerns including Pain of the Right Knee. HISTORY OF PRESENT ILLNESS Patient returns today for re-evaluation of right knee. She has a longstanding history of pain and osteoarthritis in her right knee. Unfortunately she has been having increasing episodes of pain and instability. Her knee is giving out and causing her to fall. Also having pain medially. This is unsatisfactory for her. Her pain is affecting her quality life and ability perform ADLs. She is here today to discuss potential surgical intervention Pain Assessment Pain Assessment: 0-10 Pain Score: 8 Pain Location: Knee Pain Orientation: Right Pain Descriptors: Aching Pain Frequency: With movement/cough Result of Injury: Yes Pain Interventions: Home medication PAST MEDICAL HISTORY She has a past medical history of Benign neoplasm of breast, Blood in urine, Hypertension, and Proteinuria. PAST SURGICAL HISTORY She has no past surgical history on file. MEDICATIONS She has a current medication list which includes the following prescription(s): accu-chek guide me glucose mtr, accu-chek guide test strips, accu-chek softclix lancets, amlodipine, atorvastatin, calcitriol, ergocalciferol, linzess, losartan, ozempic, polyethylene glycol, bisacodyl, fluticasone propionate, and hydrochlorothiazide. ALLERGIES She is allergic to shrimp. SOCIAL HISTORY She reports that she has never smoked. She has been exposed to tobacco smoke. She has never used smokeless tobacco. She reports that she does not use drugs. No alcohol history on file. FAMILY HISTORY Family History Problem Relation Age of Onset Breast cancer Sister Adenocarcinoma of breast - (Added by TW Conv) Breast cancer Father's Sister REVIEW OF SYSTEMS Constitutional: Negative for chills and fever. HENT: Negative for ear pain and sore throat. Eyes: Negative for pain and visual disturbance. Respiratory: Negative for shortness of breath and wheezing. Cardiovascular: Negative for chest pain and palpitations. Gastrointestinal: Negative for abdominal distention and abdominal pain. Genitourinary: Negative for dysuria and hematuria. Skin: Negative for pallor and rash. Neurological: Negative for syncope and numbness. Objective PHYSICAL EXAM There were no vitals taken for this visit. Gen: No acute distress, well developed Head: Atraumatic Eyes: EOM are normal Ears: Hearing intact to spoken word Cardiovascular: Rate is regular Pulmonary: No respiratory distress Adominal: soft Neurologic: Patient oriented to person, place and time Psychiatric: Normal mood and affect MSK: Exam of the right knee shows moderate effusion. No erythema or signs of infection. Extension is full flexion to 120??. There is some laxity with varus valgus stressing medially. Stable with anterior posterior drawer. Patella tracking midline. No pain motion of the hip REVIEW OF X-RAYS/STUDIES/LABS New x-rays ordered interpreted today of the knee show moderate degenerative changes with near complete loss joint space medial compartment. Prior MRI reviewed from 2021 reporting severe chondrosis ofthe medial femoral condyle Diagnoses and all orders for this visit: Primary osteoarthritis of right knee (Primary) - XR Knee Right 3 Views; Future Plan: Discussed further treatment with the patient. Unfortunately [...] We will proceed with right total knee arthroplasty in the near future. All questions addressed today Kamar Gandara DO STING GEAR OPERATOR documented in this encounter Plan of Treatment Not on file documented as of this encounter Results * XR Knee Right 3 Views (05/12/2023 3:17 PM ARRESTING GEAR OPERATOR) Anatomical Region Laterality Modality Lower Extremities, Knee Right Computed Radiography 05/13/2023 9:12 AM ARRESTING GEAR OPERATOR Narrative 05/13/2023 9:39 AM ARRESTING GEAR OPERATOR EXAM DESCRIPTION: XR KNEE RIGHT 3 VIEWS REASON FOR STUDY: pain ?? General knee pain and swelling since fall today ? FINDINGS: Three views submitted with comparison 04/04/2022. No acute fractures are identified. ??There is qbvt-[id number]-asgnysgv medial predominant tricompartmental right knee osteoarthritis. ??A small knee effusion is present. ??Extensor mechanism enthesophytes are noted. ??Old left medial collateral ligament sprain is noted. IMPRESSION: Njvl-pf-llfmxobv medial predominant tricompartmental right knee osteoarthritis with a small effusion. THIS IS AN ELECTRONICALLY VERIFIED FINAL REPORT 05/13/2023 9:39 AM - Electronically signed by ??Kwesi Kessler M.D. D: ??05/13/2023 9:39 AM T: Report ID: [id number] Reading Location: ??[id number] Procedure Note Kwesi Kessler MD - 05/13/2023 EXAM DESCRIPTION: XR KNEE RIGHT 3 VIEWS REASON FOR STUDY: pain General knee pain and swelling since fall today FINDINGS: Three views submitted with comparison 04/04/2022. No acute fractures are identified. There is qkzc-xq-kktvnxnu medial predominant tricompartmental right knee osteoarthritis. A small kneeeffusion is present. Extensor mechanism enthesophytes are noted. Old left medial collateral ligament sprain is noted. IMPRESSION: Rque-ay-mmjbyxpd medial predominant tricompartmental right knee osteoarthritis with a small effusion. THIS IS AN ELECTRONICALLY VERIFIED FINAL REPORT 05/13/2023 9:39 AM - Electronically signed by Kwesi Kessler M.D. T: Report ID: [id number] Reading Location: [id number] Kamar Gandara DO IMG XR PROCEDURES Final Result documented in this encounter Visit Diagnoses Diagnosis Primary osteoarthritis of right knee- Primary Primary osteoarthritis of right knee documented in this encounter Discontinued Medications Medication Sig Discontinue Reason Start Date End Da te Trulicity 1.5 mg/0.5 mL pen injector INJECT 0.5 ML SUBCUTANEOUSLY EVERY 7 DAYS 06/02/2022 05/12/2023 documented as of this encounter Historical Medications * This list may reflect changes made after this encounter. polyethylene glycol 236-22.74-6.74 -5.86 gram solution Take 240 mL by mouth once 04/10/2023 Accu-Chek Guide Me Glucose Mtr misc 1 Insert daily 03/24/2023 Ozempic 0.25 mg or 0.5 mg (2 mg/3 mL) pen injector injection Inject 0.5 mg under the skin once a week Injects on Sundays. 05/03/2023 08/13/2023 Linzess 72 mcg capsule Take 1 capsule (72 mcg total) by mouth daily 04/08/2023 06/11/2023 added in this encounter Care Teams Arabic Professor Relationship Specialty Start Date End Date Fidencio French MD [address] [place] [address] PCP - General Internal Medicine 06/12/22 documented as of this encounter
--- OUTSIDE RECORDS SUMMARY | 2024-03-23 01:50 | XMS_ITS | Encounter Summary ---
Author Organization [facility] Healthcare Address [address] [place] [address] Care Team Providers Care Content Coordinator Name Role Phone Fidencio French MD Primary Care Provider [phone] Reason for Visit * Reason Comments PT Treatment * Physical Therapy (Routine) - Closed Specialty Diagnoses / Procedures Referred By Kirt t Referred To Contact Physical Therapy Diagnoses Acute medial meniscus tear of right knee, initial encounter Kamar Gandara DO [address] [address] Phone: tel: fax: [facility] OP Physical Therapy [address] [place] [address] Phone: tel: fax: Referral ID Status Reason Start Date Expiration Date V isits Requested Visits Authorized [id number] Closed Specialty Services Required 12/09/2022 03/23/2023 12 99 Encounter Details Date Type Department Care Team (Late st Contact Info) Description 01/16/2023 3:00 PM CDT Therapy [facility] OP Physical Therapy [address] [place], [place] [id number] Kristina Hernandez, DARYA Acute medial meniscus tear of right knee, [...] on file Legal Sex Female 5:35 PM 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 Acute medial meniscus tear of right knee, initial encounter 836.0 S83.241A FIDENCIO FRENCH PT Diagnosis: knee discomfort due to weakness, limited mobility and swelling Precautions: None Relevant Comorbidities: HTN Short-Term Goals: to be met by 01/06/23 Patient will be instructed in HEP met and ongoing Patient will improve knee extension mobility to [...] Date Date Date Date Date Date Date date 12/20/22 12/23/22 12/25/22 01/03/23 01/06/23 01/10/23 01-13-23 01/16/23 Visit Number 3 [phone] 10 ADDITIONAL HEP SHEETS ISSUED Took time to review TENS unit Nu Step or Recumbent bike NT Nu step level x 8 min arms and legs Nustep 8 minutes legs only Nu-step 10 min's legs only Nu-step LV 4 10 min's BLE's only Nu step L5 8 min Nustep L5 x 5 min Nu step L 5 x 7 min Incline Stretch Hamstring Stretch NT time 30 sec x 3 done 3x30 sec 3x30 sec 3x30 sec 3x30 sec 30 sec x3 30 sec x3 3 x 30 sec 3 x 30 sec 30 sec x 3 30 sec x 3 TKE manual stretch NT time NT 20x QS with TKE with blue fit ball 20x Qs with TKE with blue fit [id number] QS with TKE with blue fit ball TKE x10 hold 4 sec nt NT STM for swelling control NT NT NT NT NT nt NT Mat Table: SLR CLAMS BRIDGES SAQ HAMSTRING CURLS SLR 10x SLR with ER 6x Clamshells reviewed Bridging 10x NT 20x each mat exercises NT NT SAQs 20x; Cued to continue with HEP and going to the gym that she recently joined. NT Stair Training NT time NT NT NT Leg Press 4 holes NT time 4 holes showing 105 lbs 10 x 1 bilat done 105# 10x2 4 holes showing 105# 10x2 4 holes showing 105 lbs 2x10 110 # 20x 110 lbs 10 x 2 Hip Machine NT time 45 lbs abd and flex 10 x 1 done 45# abd/flex 10x1 NT 45 lbs ABD/ Flex 2x10 ea 45# abd/flex 10x B 45 lbs 10 x 2 [place] Hamstring curls 20 lbs - bilat 10 x 2 done 20# BLE 10x2 NT NT 25# 15x 25 lbs 10 x 2 // bars: side steps, toe taps, heel raises, hip abd, hip ext, romberg, tandem, SL, rocker board etcNT time NT NT Side steps x2 lengths HR 2x10 HIP abd/ext x10 Rocker board Step ups 4 box Heel raises Rockerboard Step ups Side steps Heel raises Done IFC with ice NT, reviewed pt's home TENS unit use Done to end session in supine - If stim with CP done done Done Right knee Right knee. Right knee x 15 min to end session Progress Note/Re-Cert * Kristina Hernandez PTA - 01/16/2023 3:00 PM CDT Images from the original note were not included. Physical Therapy Visit/Daily Note 01/16/2023 Lindsay Pedersen 1955 ICD-9-CM ICD-10-CM 1. Acute medial meniscus tear of right knee, initial encounter 836.0 S83.241A FIDENCIO FRENCH Subjective: Pt reports that the dampness outside causes increased pain and tiredness. Pt states I'm just not having a good day today. Pt reports that she hasn't had time to go to the gym that she joined recently. Pain today is 5/10 entering the dept. Changes since last visit include increased right knee pain. Objective: Objective Measurement/Observation: Pt ambulates w/o device with slight limp due to increased pain in wt bearing right. Patient performed strengthening for Right knee per TKR protocol. Pt fatigues with her program this session. Specific exercises and treatment interventions are outlined on exercise worksheet document. Treatment Performed on This Visit: Manual Therapy (body part and techniques): None Therapeutic Procedure/Exercise: right LE strengthening to improve strength/balance and gait Modalities: IFC with ice to right knee HEP given: reports compliance Patient education: discussed going to the gym Assessment: Patient tolerated today's treatment working on LE strengthening to improve quality of life. Patient demonstrates limited right knee mobility with decreased strength and pain which is contributing to difficulty with using steps, walking distances and standing up from sitting. Patient would benefit from additional skilled therapy services and demonstrates good prognosis to achieve stated goals. Goals Addressed This Visit: STGs met LTG #2 and #4. Plan: Patient would benefit from the following modification on next visit: Continue per POC. Therapy will continue to address these impairments in order to progress towards functional goals. Kristina Hernandez PTA [facility] ATTENTION PHYSICIAN If you are unable [...] Primary documented in this encounter Care Teams Content Coordinator Relationship Specialty Start Date End Date Fidencio French MD [address] [place] [address] PCP - General Internal Medicine 06/12/22 documented as of this encounter
--- OUTSIDE RECORDS SUMMARY | 2024-03-23 01:50 | XMS_ITS | Encounter Summary ---
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 Patient plans discharge to Rehab. documented in this encounter Plan of Treatment Not on file documented as of this encounter Visit Diagnoses Not on filedocumented in this encounter Care Teams Scaffold Erector Relationship Specialty Start Date End Date Fidencio French MD [address] [place] [address] PCP - General Internal Medicine 06/12/22 documented as of this encounter
--- OUTSIDE RECORDS SUMMARY | 2024-03-23 01:50 | XMS_ITS | Encounter Summary ---
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
--- OUTSIDE RECORDS SUMMARY | 2024-03-23 01:50 | XMS_ITS | Encounter Summary ---
Author Organization [facility] Healthcare Address [address] [place] [address] Care Team Providers Care Extrusion Press Adjuster Name Role Phone Fidencio French MD Primary Care Provider [phone] Reason for Referral * Cardiology (Routine) - Pending Review Specialty Diagnoses / Procedures Referred By Contac t Referred To Contact Diagnoses Preop examination Procedures ECG 12 [place] [address] [address] Phone: tel: fax: [address] [phone] Referral ID Status Reason Start Date Expiration Date V isits Requested Visits Authorized [id number] Pending Review 06/05/2023 07/04/2024 1 1 Encounter Details Date Type Department Care Team (Latest Contact Info) Description 06/11/2023 9:30 AM CDT Pre-Admission Testing [facility] PreAdmission Testing [address] [place] [phone] Preop examination (Primary Dx); Primary osteoarthritis of right knee; Preop testing; Elevated hemoglobin A1c Anesthesia Record Procedure Summary Procedure Name Responsible [...] No value filed. 1441 An Stop Meds * Agents No agents on file. * Blood No blood administrations on file. 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 Gender Identity Not on file Sexual Orientation Not on file documented as of this encounter Last Filed Vital Signs Vital Sign Reading Time Taken Comments Blood Pressure 140/71 06/11/2023 9:39 AM CDT rt upper arm Pulse 90 06/11/2023 9:39 AM CDT Temperature 36.2 ??C (97.2 ??F) 06/11/2023 9 :39 AM CDT Respiratory Rate 14 06/11/2023 9:39 AM CDT Oxygen Saturation 100% 06/11/2023 9:3 9 AM CDT Inhaled Oxygen Concentration - - Weight 90.1 kg (198 lb 9.6 oz) 06/11/19 9:39 AM CDT Height 157.5 cm (5' 2 ) 06/11/2023 9:39 AM CDT Body Mass Index 36.32 06/11/2023 9:39 AM CDT documented in this encounter Plan of Treatment Not on file documented as of this encounter Procedures Procedure Name Priority Date/Time Associated Diagnosis Comments INFECTION PREVENTION MRSA ONLY (STAPHYLOCOCCUS AUREUS) PCR Routine 06/11/2023 9:42 AM CDT Primary osteoarthritis of right knee Preop testing TYPE AND SCREEN 14 DAY Routine 06/11/2023 9:28 AM CDT Primary osteoarthritis of right knee Preop testing EGFR Routine 06/11/2023 9:28 AM CDT Primary osteoarthritis of right knee Preop testing DIFFERENTIAL AUTO Routine 06/11/2023 9:2 8 AM CDT Primary osteoarthritis of right knee Preop testing CBC WITH AUTO DIFFERENTIAL Routine 06/11/2023 9:28 AM CDT Primary osteoarthritis of right knee Preop testing ABO/RH Routine 06/11/2023 9:28 AM CDT Primary osteoarthritis of right knee Preop testing ANTIBODY SCREEN Routine 06/11/2023 9:28 AM CDT Primary osteoarthritis of right knee Preop testing HEMOGLOBIN A1C Routine 06/11/2023 9:28 AM CDT Primary osteoarthritis of right knee Preop testing Elevated hemoglobin A1c COMPREHENSIVE METABOLIC PANEL Routine 06/11/2023 9:28 AM CDT Primary osteoarthritis of right knee Preop testing ECG 12-LEAD Routine 06/11/2023 9:26 AM CDT Preop examination documented in this encounter Results * Infection Prevention MRSA Only (Staphylococcus aureus) PCR Nasal (06/11/2023 9:42 AM CDT) PCR Scrn, Methicillin resistant Staphylococcus aureus (MRSA) Not Detected Not Detected Comment: Interpretive Data Testing performed using Nucleic Acid Amplification with the Gimah[employer] Xpert MRSA NxG Assay. This assay detects target DNA from mecA, mecC and the SCCmec insertion site of Staphylococcus aureus using Real-Time PCR and has been cleared by the FDA. Performance characteristics have been verified by the [facility]. Current Interpretive Data was last revised on 2022 Nasal 06/11/2023 9:42 AM CDT 06/11/2023 9:47 AM CDT us Kamar Gandara DO LAB MICROBIOLOGY - GENERAL ORD ERABLES Final Result Performing Organization Address [facility] Co de Phone Number [facility] [place] [address] * eGFR (06/11/2023 9:28 AM CDT) eGFR 55 mL/min/1. 73 m2 Comment: Interpretive Data Reference [...] interpretive data was last reviewed 2021. Blood 06/11/2023 9:28 AM CDT 06/11/2023 9:40 AM CDT us Kamar Gandara DO LAB BLOOD ORDERABLES Final Res ult Performing Organization Address [facility]/ZIP Co de Phone Number MICHELA [address] [facility] [place] [address] * (ABNORMAL) Differential, auto (06/11/2023 9:28 AM CDT) Pathologist [facility] Neutrophil abs 5.5 1.5 - 6.5 K/cumm Imm gran abs 0.0 0.0 - 0.1 K/cumm [facility] Lymphocyte abs 3.4(H) 0.8 - 3.3 K/cumm [facility] Monocyte abs 0.6 0.2 - 0.8 K/cumm [facility] Eosinophil abs 0.1 0.0 - 0.5 K/cumm [facility] Basophil abs 0.0 0.0 - 0.1 K/cumm [facility] Neutrophil pct 56.8 % [facility] Comment: Interpretive Data Percent cell count reference ranges are not reported, since discordance with absolute values may lead to misinterpretation of CBC data. Current Interpretive Data was last revised on 2017. Imm gran pct 0.1 % [facility] Comment: Interpretive Data Percent cell count reference ranges are not reported, since discordance with absolute values may lead to misinterpretation of CBC data. Current Interpretive Data was last revised on 2017. Lymphocyte pct 35.7 % [facility] Comment: Interpretive Data Percent cell count reference ranges are not reported, since discordance with absolute values may lead to misinterpretation of CBC data. Current Interpretive Data was last revised on 2017. Monocyte pct 5.8 % [facility] Comment: Interpretive Data Percent cell count reference ranges are not reported, since discordance with absolute values may lead to misinterpretation of CBC data. Current Interpretive Data was last revised on 2017. Eosinophil pct 1.2 % [facility] Comment: Interpretive Data Percent cell count reference ranges are not reported, since discordance with absolute values may lead to misinterpretation of CBC data. Current Interpretive Data was last revised on 2017. Basophil pct 0.4 % [facility] Comment: Interpretive Data Percent cell count reference ranges are not reported, since discordance with absolute values may lead to misinterpretation of CBC data. Current Interpretive Data was last revised on 2017. Blood 06/11/2023 9:28 AM CDT 06/11/2023 9:40 AM CDT YesPlz! LAB BLOOD ORDERABLES Final Res ult Performing Organization Address [facility] de Phone Number [address] [address] * Antibody screen (06/11/2023 9:28 AM CDT) Pathologist [facility] Huang, indirect, Gel Interpretation Negative ABSC Blood 06/11/2023 9:28 AM CDT 06/11/2023 9:37 AM CDT Narrative MICHELA [facility] 06/11/2023 10:14 AM CDT Is this test being ordered in advance for a procedure?->Yes Expected date of procedure:->07/01/23 Has the patient been transfused in the past 3 months?->No Has the patient been in the past 3 months?->No YesPlz! LAB BLOOD BANK TEST ORDERABLES Final Result Performing Organization Address [facility] de Phone Number [address] [address] * ABO/Rh (06/11/2023 9:28 AM CDT) [facility] ABO/Rh A Positive Blood 06/11/2023 9:28 AM CDT 06/11/2023 9:37 AM CDT Narrative MICHELA [facility] 06/11/2023 10:14 AM CDT Is this test being ordered in advance for a procedure?->Yes Expected date of procedure:->07/01/23 Has the patient been transfused in the past 3 months?->No Has the patient been in the past 3 months?->No YesPlz! LAB BLOOD BANK TEST ORDERABLES Final Result Performing Organization Address [facility] de Phone Number [address] [address] * Comprehensive metabolic panel (06/11/2023 9:28 AM CDT) Sodium 137 135 - 145 mmol/L Potassium, pl 3.8 3.3 - 4.9 mmol/L [facility] Chloride 102 97 - 110 mmol/L [facility] CO2 25 22 - 32 mmol/L [facility] Anion gap 10 2 - 15 mmol/L [facility] BUN 16 6 - 25 mg/dL [facility] Creatinine 1.10 0.60 - 1.10 mg/dL [facility] Glucose 100 70 - 199 mg/dL [facility] Comment: Interpretive Data Fasting glucose >/= 126 [...] interpretive data was last revised 2022. Calcium 9.2 8.5 - 10.3 mg/dL [facility] Bilirubin, total 0.4 0.1 - 1.2 mg/dL [facility] Protein, pl 7.7 6.5 - 8.5 g/dL [facility] Albumin 3.8 3.5 - 5.0 g/dL [facility] Alk phos 79 40 - 130 Units/L [facility] ALT 7 7 - 45 Units/L [facility] AST 14 10 - 45 Units/L [facility] Blood 06/11/2023 9:28 AM CDT 06/11/2023 9:40 AM CDT us Kamar Gandara DO LAB BLOOD ORDERABLES Final Res ult [facility] [address] [facility] Department [place] [address] * (ABNORMAL) CBC with auto differential (06/11/2023 9:28 AM CDT) WBC 9.6 3.8 - 9.9 K/cumm Hgb 12.8 11.9 - 15.5 g/dL [facility] Hct 40.2 35.6 - 45.5 % [facility] Plt 292 150 - 400 K/cumm [facility] MPV 10.1 9.1 - 12.3 fL [facility] RBC 4.79 3.90 - 5.20 M/cumm [facility] MCV 83.9 81.3 - 96.4 fL [facility] MCH 26.7(L) 27.1 - 33.3 pg [facility] MCHC 31.8(L) 32.3 - 35.7 g/dL [facility] RDW CV 15.9(H) 11.1 - 14.9 % [facility] RDW SD 48.3(H) 35.7 - 48.1 fL [facility] NRBC abs 0.00 0.00 - 0.01 K/cumm [facility] Blood 06/11/2023 9:28 AM CDT 06/11/2023 9:40 AM CDT IVFXPERT DO LAB BLOOD ORDERABLES Final Res ult Performing Organization Address [facility] de Phone Number [address] [place] [address] * (ABNORMAL) Hemoglobin A1c (06/11/2023 9:28 AM CDT) Hgb A1C 6.3(H) 4.0 - 5.6 % Estimated Average Glucose 134 mg/dL [facility] Comment: The ADA recommends reporting an estimated Average Glucose (eAG) with all Hemoglobin A1c results using the equation derived from a study of 507 normal and diabetic adults. ??Minority populations were underrepresented and children were not included. ?? (Diabetes Care 31:3211-3533, 2008). ??The eAG is not equivalent to a fasting glucose. Blood 06/11/2023 9:28 AM CDT 06/11/2023 9:40 AM CDT IVFXPERT DO LAB BLOOD ORDERABLES Final Res ult Performing Organization Address [facility] Co de Phone Number [address] [place] [address] * ECG 12 lead (06/11/2023 9:26 AM CDT) Ventricular Rate EKG/Min 82 BPM [facility] Atrial Rate 82 BPM [facility] AR-Interval (MSEC) 160 ms [facility] QRS-Interval (MSEC) 102 ms [facility] QT-Interval (MSEC) 396 ms [facility] QTc 462 ms [facility] P [place] 38 degrees [facility] R [place] -21 degrees [facility] T [place] 51 degrees [facility] Diagnosis Normal sinus rhythm Normal ECG No previous ECGs available Confirmed by ARYA URIAS M.D. ([id number]) on 06/12/2023 2:04:54 PM [facility] 06/11/2023 9:26 AM CDT 06/12/2023 2:04 PM CDT us Dorota Castelan EMAIL MARKETING PROCESSOR ECG ORDERABLES Final Resu lt [facility] documented in this encounter Visit Diagnoses Diagnosis Preop examination- Primary Unspecified pre-operative examination Primary osteoarthritis of right knee Preop testing Unspecified pre-operative examination Elevated hemoglobin A1c Other abnormal blood chemistry documented in this encounter Care Teams Extrusion Press Adjuster Relationship Specialty Start Date End Date Fidencio French MD [address] [place] [address] PCP - General Internal Medicine 06/12/22 documented as of this encounter
--- OUTSIDE RECORDS SUMMARY | 2024-03-23 01:50 | XMS_ITS | Encounter Summary ---
Author Organization [facility] Healthcare Address [address] [place] [address] Care Team Providers Care Hand Tube Bender Name Role Phone Fidencio French MD Primary Care Provider [phone] Reason for Visit * Reason Comments PT Treatment * Physical Therapy (Routine) - Closed Specialty Diagnoses / Procedures Referred By Kirt t Referred To Contact Physical Therapy Diagnoses Acute medial meniscus tear of right knee, initial encounter Kamar Gandara DO [address] [address] Phone: tel: fax: [facility] OP Physical Therapy [address] [place] [address] Phone: tel: fax: Referral ID Status Reason Start Date Expiration Date V isits Requested Visits Authorized [id number] Closed Specialty Services Required 12/09/2022 03/23/2023 12 99 Encounter Details Date Type Department Care Team (Late st Contact Info) Description 01/28/2023 10:45 AM HAIRSPRING TRUING INSPECTOR Therapy [facility] OP Physical Therapy [address] [place] [address] Kassy Fowler PTA Acute medial meniscus tear of right knee, [...] on file 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 Acute medial meniscus tear of right knee, initial encounter 836.0 S83.241A FIDENCIO FRENCH PT Diagnosis: knee discomfort due to weakness, limited mobility and swelling Precautions: None Relevant Comorbidities: HTN Short-Term Goals: to be met by 01/06/23 Patient will be instructed in HEP met and ongoing Patient will improve knee extension mobility to 0 deg ( -6 degrees from neutral) 01/28/23 Patient will improve swelling in R quad to equal L quad side progressing Long-Term Goals: to be met by 02/03/23 Patient will be independent in HEP (new and revised). met Patient will improve strength in LEs to 4+/5 or > (progressing 4 to 4+/5) Patient will be able to navigate flight of stairs with reciprocal pattern to improve ability to perform laundry (Pt reports that she descends with the same leg for safety, and ascends alternating herlegs) Patient will report 75% improvement with adls met Patient Goal: get better PT Eval Date: 12-09-22 Orders : 02-03-23 Cert dates: From 12-09-22 to 02-03-23 Date date Date Date 01-13-23 01/16/23 01/21/23 01/28/23 Visit Number [id number] 11 12 ADDITIONAL HEP SHEETS ISSUED Nu Step or Recumbent bike Nustep L5 x 5 min Nu step L 5 x 7 min Nu step L 5 x 7 min Nustep L5 7 min Incline Stretch Hamstring Stretch 3 x 30 sec 3 x 30 sec 30 sec x 3 30 sec x 3 30x3 30x3 30 sec x2 30 x3 TKE manual stretch nt NT STM for swelling control nt NT Mat Table: SLR [place] SAQ HAMSTRING CURLS SAQs 20x; Cued to continue with HEP and going to the gym that she recently joined. NT Stair Training Leg Press 4 holes 110 # 20x 110 lbs 10 x 2 110# 10x2 110 lbs 10x 2 Hip Machine 45# abd/flex 10x B 45 lbs 10 x 2 45 lbs 10 x 2 45 lbs 10x2 [place] Hamstring curls 25# 15x 25 lbs 10 x 2 25 lbs 10 x 2 25 lbs 10x2 // bars: side steps, toe taps, heel raises, hip abd, hip ext, romberg, tandem, SL, rocker board etcRockerboard Step ups Side steps Heel raises Done Done Done: Added hurdles TKE ball behind knee IFC with ice Right knee. Right knee x 15 min to end session NT Progress Note/Re-Cert SPRING TRUING INSPECTOR * Kassy Fowler, DARYA - 01/28/2023 10:45 AM CST Images from the original note were not included. Physical Therapy Visit/Daily Note 01/28/2023 Lindsay Pedersen 1955 ICD-9-CM ICD-10-CM 1. Acute medial meniscus tear of right knee, initial encounter 836.0 S83.241A FIDENCIO FRENCH Subjective: Pt reports that she is not experiencing any knee pain this morning. Pt stated that she has many days with either no pain or just discomfort. Pt commented that standing for long periods aggravates herknee. Pt has returned to doing ADLs without difficulty or much pain. Pain today is 0/10. Changes since last visit include: nothing new to report Objective: Objective Measurement/Observation: Pt amb without a device and limited right knee extension. Focused on right LE strengthening ex's and balance. Pt able to exercise without rest periods. Pt stepped over hurdles, stood on blue foam while playing catch, walked while turning her head from side to side, and performed braiding with her legs without difficulty. Right knee AROM: -6 to 120 degrees. Specific exercises and treatment interventions are outlined on exercise worksheet document. Treatment Performed on This Visit: Manual Therapy (body part and techniques): no Therapeutic Procedure/Exercise: right LE strengthening exercises and balance Modalities: no HEP given: established (pt joined a gym and was waiting until PT treatments were over to attend) Patient education: Keep the muscles around the knee strong to stabilize the joint. Assessment: Patient tolerated today's treatment without incident Patient demonstrates improvement in knee pain with increased right LE strength and some improvementin knee ROM since starting PT. Pt has returned to her normal activities at home and only notices knee pain if standing for long periods. Goals Addressed This Visit: Progressing or met Plan: This is discharged from PT today, and she plans to cont with HEP and exercise at a gym that she recently joined. . Kassy Fowler PTA [facility] ATTENTION PHYSICIAN If you are unable to electronically sign this document, please print this document and sign below to certify this plan of care/treatment plan. By signing this document, I certify that I have reviewedthis plan of care and support the treatment. Please fax back to . Thank you. Provider Signature: Date: SPRING TRUING INSPECTOR documented in this encounter Plan of Treatment Not on file documented as of this encounter Visit Diagnoses Diagnosis Acute medial meniscus tear of right knee, initial encounter- Primary documented in this encounter Care Teams Hand Tube Bender Relationship Specialty Start Date End Date Fidencio French MD [address] [place] [address] PCP - General Internal Medicine 06/12/22 documented as of this encounter
--- OUTSIDE RECORDS SUMMARY | 2024-03-23 01:50 | XMS_ITS | Encounter Summary ---
Author Organization [facility] Healthcare Address [address] [place] [address] Care Team Providers Care Set Up Mechanic Coil Winding Machines Name Role Phone Fidencio French MD Primary Care Provider [phone] Reason for Visit * Reason Onset Date Comments meds 05/26/2023 Encounter Details Date Type Department Care Team (Late st Contact Info) Description 05/26/2023 Telephone [facility] Medical Group Orthopedics and Sports Medicine [address] [place] [phone] Kamar Gandara DO [address] [place] [address] meds Social History Tobacco Use Types Packs/Day Years [...] on file 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 Pt states they were not as good as the 5% patches, but the patient said she does not need them right know. She was also wanting to let me know she is having all her clearance completed on 06/11/23 at [facility]. She would also like her Dr to get copies of all the test for his records. * Telephone Encounter - Celena Mensah - 05/26/2023 9:35 AM EDUCATION COUNSELOR JAW Pt was prescribed lidocaine patch on 05/15. Insurance did not cover it due to not knowing what it was needed for. ATION COUNSELOR documented in this encounter Plan of Treatment Not on file documented as of this encounter Visit Diagnoses Not on filedocumented in this encounter Care Teams Set Up Mechanic Coil Winding Machines Relationship Specialty Start Date End Date Fidencio French MD [address] [place] [address] PCP - General Internal Medicine 06/12/22 documented as of this encounter
--- OUTSIDE RECORDS SUMMARY | 2024-03-23 01:50 | XMS_ITS | Encounter Summary ---
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 Please refer to prior treatment/visit notes for objective findings and goal progress. EDO WORKER documented in this encounter Plan of Treatment Not on file documented as of this encounter Visit Diagnoses Not on filedocumented in this encounter Care Teams Record Systems Analyst Relationship Specialty Start Date End Date Fidencio French MD [address] [place] [address] PCP - General Internal Medicine 06/12/22 documented as of this encounter
--- OUTSIDE RECORDS SUMMARY | 2024-03-23 01:50 | XMS_ITS | Encounter Summary ---
Author Organization [facility] Healthcare Address [address] [place] [address] Care Team Providers Care Police Magistrate Name Role Phone Fidencio French MD Primary Care Provider [phone] Reason for Visit * Physical Therapy (Routine) - Closed Specialty Diagnoses / Procedures Referred By Kirt t Referred To Contact Physical Therapy Diagnoses Acute medial meniscus tear of right knee, initial encounter Kamar Gandara DO [address] [address] Phone: tel: fax: [facility] OP Physical Therapy [address] [place] [address] Phone: tel: fax: Referral ID Status Reason Start Date Expiration Date V isits Requested Visits Authorized [id number] Closed Specialty Services Required 12/09/2022 03/23/2023 12 99 Encounter Details Date Type Department Care Team (Late st Contact Info) Description 01/21/2023 3:00 PM CDT Therapy [facility] OP Physical Therapy [address] [place] [address] Mary Jean, COLLAR TAILOR Acute medial meniscus tear of right knee, [...] on file 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 Physical Therapy Visit/Daily Note 01/21/2023 Lindsay Coker Slava 1955 No diagnosis found. FIDENCIO FRENCH Subjective: Pt reports that she continues to have right knee pain. Reports having difficulty with standing longer than 10 minutes and walking a distance. Pain today is 3/10. Changes since last visit include continued weakness in B LE's. Objective: Objective Measurement/Observation: Pt amb without device, gait pattern is WNL. Exercises performed for LE strength and mobility with focus on R knee . No c/o of increased pain when performing. Pt able to exercise without rest periods. Specific exercises and treatment interventions are outlined on exercise worksheet document. Treatment Performed on This Visit: Manual Therapy (body part and techniques): no Therapeutic Procedure/Exercise: right LE strengthening and mobility Modalities: no HEP given: established Patient education: Assessment: Patient tolerated today's treatment without incident Patient demonstrates weakness and decreased mobility R knee which is contributing to difficulty with walking distances and standing longer than 10 minutes. Patient would benefit from additional skilled therapy services and demonstrates good prognosis to achieve stated goals. Goals Addressed This Visit: All goals Plan: Patient would benefit from the following modification on next visit: Continue per POC. Therapy will continue to address these impairments in order to progress towards functional goals. Mary Jean PTA [facility] ATTENTION PHYSICIAN If you are unable to electronically sign this document, please print this document and sign below to certify this plan of care/treatment plan. By signing this document, I certify that I have reviewedthis plan of care and support the treatment. Please fax back to . Thank you. Provider Signature: Date: * Mary Jean, COLLAR TAILOR - 01/21/2023 3:00 PM CDT No diagnosis found. FIDENCIO FRENCH PT Diagnosis: knee discomfort due [...] From 12-09-22 to 02-03-23 Date date Date 01-13-23 01/16/23 01/21/23 Visit Number [phone] ADDITIONAL HEP SHEETS ISSUED Nu Step or Recumbent bike Nustep L5 x 5 min Nu step L 5 x 7 min Nu step L 5 x 7 min Incline Stretch Hamstring Stretch 3 x 30 sec 3 x 30 sec 30 sec x 3 30 sec x 3 30x3 30x3 TKE manual stretch nt NT STM for swelling control nt NT Mat Table: SLR CLAMS BRIDGES SAQ HAMSTRING CURLS SAQs 20x; Cued to continue with HEP and going to the gym that she recently joined. NT Stair Training Leg Press 4 holes 110 # 20x 110 lbs 10 x 2 110# 10x2 Hip Machine 45# abd/flex 10x B 45 lbs 10 x 2 45 lbs 10 x 2 [place] Hamstring curls 25# 15x 25 lbs 10 x 2 25 lbs 10 x 2 // bars: side steps, toe taps, heel raises, hip abd, hip ext, romberg, tandem, SL, rocker board etcRockerboard Step ups Side steps Heel raises Done Done IFC with ice Right knee. Right knee x 15 min to end session Progress Note/Re-Cert documented in this encounter Plan of Treatment Not on file documented as of this encounter Visit Diagnoses Diagnosis Acute medial meniscus tear of right knee, initial encounter- Primary documented in this encounter Care Teams Police Magistrate Relationship Specialty Start [place] [address] [place] [id number] PCP - General Internal Medicine 06/12/22 documented as of this encounter
--- OUTSIDE RECORDS SUMMARY | 2024-03-23 01:50 | XMS_ITS | Encounter Summary ---
Author Organization [facility] Healthcare Address [address] [place] [address] Care Team Providers Care Christmas Tree Farm Worker Name Role Phone Fidencio French MD Primary Care Provider [phone] Reason for Visit * Reason Comments PT Treatment * Physical Therapy (Routine) - Closed Specialty Diagnoses / Procedures Referred By Kirt t Referred To Contact Physical Therapy Diagnoses Acute medial meniscus tear of right knee, initial encounter Kamar Gandara DO [address] [address] Phone: tel: fax: [facility] OP Physical Therapy [address] [place] [address] Phone: tel: fax: Referral ID Status Reason Start Date Expiration Date V isits Requested Visits Authorized [id number] Closed Specialty Services Required 12/09/2022 03/23/2023 12 99 Encounter Details Date Type Department Care Team (Late st Contact Info) Description 01/10/2023 4:30 PM CDT Therapy [facility] OP Physical Therapy [address] [place], [place] [id number] Kassy Fowler PTA Acute medial meniscus tear [...] on file 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 Acute medial [...] 02-03-23 Date Date Date Date Date Date 12/20/22 12/23/22 12/25/22 01/03/23 01/06/23 01/10/23 Visit Number 3 4 5 6 7 8 ADDITIONAL HEP SHEETS ISSUED Took time to review TENS unit Nu Step or Recumbent bike NT Nu step level x 8 min arms and legs Nustep 8 minutes legs only Nu-step 10 min's legs only Nu-step LV 4 10 min's BLE's only Nu step L5 8 min Incline Stretch Hamstring Stretch NT time 30 sec x 3 done 3x30 sec 3x30 sec 3x30 sec 3x30 sec 30 sec x3 30 sec x3 TKE manual stretch NT time NT 20x QS with TKE with blue fit ball 20x Qs with TKE with blue fit [id number] QS with TKE with blue fit ball TKE x10 hold 4 sec STM for swelling control NT NT NT NT NT Mat Table: SLR [...] 10x2 4 holes showing 105 lbs 2x10 Hip Machine NT time 45 lbs abd and flex 10 x 1 done 45# abd/flex 10x1 NT 45 lbs ABD/ Flex 2x10 ea [place] Hamstring curls 20 lbs - bilat 10 x 2 done 20# BLE 10x2 NT NT // bars: side steps, toe taps, heel raises, hip abd, hip ext, romberg, tandem, SL, rocker board etcNT time NT NT Side steps x2 lengths HR 2x10 HIP abd/ext x10 Rocker board Step ups 4 box Heel raises IFC with ice NT, reviewed pt's home TENS unit use Done to end session in supine - If stim with CP done done Done Right knee Progress Note/Re-Cert * Kassy Fowler PTA - 01/10/2023 4:30 PM CDT Images from the original note were not included. Physical Therapy Visit/Daily Note 01/10/2023 Lindsay Pedersen 1955 ICD-9-CM ICD-10-CM 1. Acute medial meniscus tear of right knee, initial encounter 836.0 S83.241A FIDENCIO FRENCH Subjective: Pt reports that she continues to have right knee pain . Pt reports that she has difficulty using steps, walking for long periods and standing up from sitting. Pt unable to use her bathtub so she is taking showers using a shower chair. Pain today is 4/10. Changes since last visit include nothing new to reports Objective: Objective Measurement/Observation: Pt arrived into the PT department without and AD, but she reports using a cane on occasion. Pt ambulates with her knee slightly bent and a slight antalgic limp on the right. Right knee AROM: -10 to 118 degrees. Pt is able to make a fair Quadriceps contraction. Specific exercises and treatment interventions are outlined on exercise worksheet document. Treatment Performed on This Visit: Manual Therapy (body part and techniques): no Therapeutic Procedure/Exercise: right LE strengthening Modalities: IFC with ice to right knee HEP given: reviewed Patient education: important to keep her knee strong to help stabilize the joint Assessment: Patient tolerated today's treatment without incident. Patient demonstrates limited right knee mobility with decreased strength and pain which is contributing to difficulty with using steps, walking distances and standing up from sitting. Patient would benefit from additional skilled therapy services and demonstrates good prognosis to achieve stated goals. Goals Addressed This Visit: stg's Plan: Patient would benefit from the following modification on next visit: advance ex's as pt is able to tolerate. Therapy will continue to address these impairments in order to progress towards functional goals. Kassy Fowler PTA [facility] Rehabilitation Services ATTENTION PHYSICIAN If you are [...] Primary documented in this encounter Care Teams Christmas Tree Farm Worker Relationship Specialty Start Date End Date Fidencio French MD [address] [place] [address] PCP - General Internal Medicine 06/12/22 documented as of this encounter
--- OUTSIDE RECORDS SUMMARY | 2024-03-23 01:50 | XMS_ITS | Encounter Summary ---
Author Organization [facility] Healthcare Address [address] [place] [address] Care Team Providers Care Inweaver Name Role Phone Fidencio French MD Primary Care Provider [phone] Reason for Referral * Procedure (Routine) - Closed Specialty Diagnoses / Procedures Referred By Contac t Referred To Contact Diagnoses Primary osteoarthritis of knees, bilateral Procedures Large Joint (Hip, Knee, Shoulder) Injection: bilateral knee Kamar Gandara DO [address] [place] [address] [address] [place] [address] Phone: tel: fax: [facility] Referral ID Status Reason Start Date Expiration Date Visits Re quested Visits Authorized [id number] Closed 12/26/2022 01/25/2024 1 1 Reason for Visit * Reason Comments Pain Synvisc #3 Injections Synvisc #3 Pain Synvisc #3 Injections Synvisc #3 Encounter Details Date Type Department Care Team (Latest Contact Info) Description 12/26/2022 9:30 AM CDT Clinical Support [facility] Orthopedics and Sports Medicine [facility] [address] [place] [address] Kamar Gandara DO [facility] [address] [place], [place] [id number] Primary osteoarthritis of knees, bilateral (Primary Dx) Social History Tobacco Use Types Packs/Day Years Used Date Smoking Tobacco: Never Passive Smoke Exposure: Past Smokeless Tobacco: Never Alcohol Use Standard Drinks/Week Comments No 0 (1 standard drink = 0.6 oz pur e alcohol) Comments Unknown Sex and Gender Information Value Date Recorded Sex Assigned at Not on file 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 Gender Identity Not on file Sexual Orientation Not on file documented as of this encounter Last Filed Vital Signs Vital Sign Reading Time Taken Comments Blood Pressure - - Pulse - - Temperature - - Respiratory Rate - - Oxygen Saturation - - Inhaled Oxygen Concentration - - Weight 98.4 kg (217 lb) 12/26/2022 9:31 AM CDT Height 154.9 cm (5' 1 ) 12/26/2022 9:31 AM CDT Body Mass Index 41 12/26/2022 9:31 AM CDT documented in this encounter Progress Notes * Kamar Gandara DO - 12/26/2022 9:30 AM CDTAssociated Order(s): Large Joint (Hip, Knee, Shoulder) Injection: bilateral knee Post-Procedure Diagnose(s): Primary osteoarthritis of knees, bilateral FOLLOW UP PATIENT VISIT Subjective CHIEF COMPLAINT She had concerns including Pain and Injections of the Left Knee (Synvisc #3) and Pain and Injections of the Right Knee (Synvisc #3). HISTORY OF PRESENT ILLINESS Patient returns today for re-evaluation of their bilateral knees. They continue to obtain good relief and are here today for repeat injection. No new injuries or trauma. No recent fevers or chills. Pain Assessment Pain Assessment: No/denies pain Objective PHYSICAL EXAM Ht 154.9 cm (5' 1 ) Wt 98.4 kg (217 lb) BMI 41.00 kg/m?? Bilateral knee exam unchanged. No erythema or signs of infection. Joint line tenderness There are no diagnoses linked to this encounter. Plan: Discussed further treatment with the patient. They would like to proceed with injection today. Bilateral knees injected today and they tolerated well. Follow up with me as scheduled. Large Joint (Hip, Knee, Shoulder) Injection: bilateral knee Performed by: Kamar Gandara DO Authorized by: Kamar Gandara DO Large Joint Injection/Aspiration: Consent Given by: Patient Verbal consent obtained: Yes Supporting Documentation: Indications: Pain Procedure Details: Location: Knee Site: Bilateral knee Prep: patient was prepped using a clean technique Approach: Anterolateral Medications Right Large Joint Injection: 16 mg hylan g-f 20 16 mg/2 mL Medications Left Large Joint Injection: 16 mg hylan g-f 20 16 mg/2 mL Patient tolerance: Patient tolerated the procedure well with no immediate complications Kamar Gandara DO documented in this encounter Plan of Treatment Not on file documented as of this encounter Procedures Procedure Name Priority Date/Time Associated Diagnosis Comments NE ARTHROCENTESIS ASPIR&/INJ MAJOR JT/BURSA W/O US Routine 12/26/2022 9:30 AM CDT Primary osteoarthritis of knees, bilateral documented in this encounter Results * NE ARTHROCENTESIS ASPIR&/INJ MAJOR JT/BURSA W/O US (12/26/2022 9:30 AM CDT) Narrative Kamar Gandara DO - 12/26/2022 9:30 AM CDT Kamar Gandara DO ? 12/26/2022 10:08 AM Large Joint (Hip, Knee, Shoulder) Injection: bilateral knee Performed by: Kamar Gandara DO Authorized by: Kamar Gandara DO ?? Large Joint Injection/Aspiration: ??Consent Given by: ??Patient ??Verbal consent obtained: Yes ?? Supporting Documentation: ??Indications: ??Pain Procedure Details: ??Location: ??Knee ??Site: ??Bilateral knee ??Prep: patient was prepped using a clean technique ?Approach: ??Anterolateral ??Medications Right Large Joint Injection: ??16 mg hylan g-f 20 16 mg/2 mL ??Medications Left ??Large Joint Injection: ??16 mg hylan g-f 20 16 mg/2 mL ??Patient tolerance: ??Patient tolerated the procedure well with no immediate complications Kamar Gandara DO IN CLINIC/BEDSIDE ORDERABLES F inal Result documented in this encounter Visit Diagnoses Diagnosis Primary osteoarthritis of knees, bilateral- Primary documented in this encounter Administered Medications Inactive Administered Medications - up to 3 most recent administrations Medication Order MAR Action Action Date Dose Rate Site hylan g-f 20 (SYNVISC) 16 mg/2 mL injection 16 mg 16 mg, intra-articular, One-Time Injection, Starting on Lorie 12/26/22 at 0930, For 1 dose, Indications: Osteoarthritis of the KneeIndications:Osteoarthritis of the Knee Given 12/26/2022 9:30 AM CDT 16 mg hylan g-f 20 (SYNVISC) 16 mg/2 mL injection 16 mg 16 mg, intra-articular, One-Time Injection, Starting on Lorie 12/26/22 at 0930, For 1 dose, Indications: Osteoarthritis of the KneeIndications:Osteoarthritis of the Knee Given 12/26/2022 9:30 AM CDT 16 mg documented in this encounter Historical Medications * This list may reflect changes made after this encounter. ergocalciferol (VITAMIN D) 50,000 unit capsule Take 1 capsule (50,000 Units total) by mouth once a week calcitRIOL (ROCALTROL) 0.25 mcg capsule Take 1 capsule (0.25 mcg total) by mouth daily added in this encounter Care Teams Inweaver Relationship Specialty Start Date End Date Fidencio French MD [address] [place] [address] PCP - General Internal Medicine 06/12/22 documented as of this encounter
--- OUTSIDE RECORDS SUMMARY | 2024-03-23 01:50 | XMS_ITS | Encounter Summary ---
Author Organization [facility] Healthcare Address [address] [place] [address] Care Team Providers Care Risk Officer Name Role Phone Fidencio French MD Primary Care Provider [phone] Reason for Visit * Reason Comments PT Treatment * Physical Therapy (Routine) - Closed Specialty Diagnoses / Procedures Referred By Kirt t Referred To Contact Physical Therapy Diagnoses Acute medial meniscus tear of right knee, initial encounter Kamar Gandara DO [address] [address] Phone: tel: fax: [facility] OP Physical Therapy [address] [place] [address] Phone: tel: fax: Referral ID Status Reason Start Date Expiration Date V isits Requested Visits Authorized [id number] Closed Specialty Services Required 12/09/2022 03/23/2023 12 99 Encounter Details Date Type Department Care Team (Late st Contact Info) Description 01/13/2023 9:15 AM CDT Therapy [facility] Hand & Shoulder [address] [place] [address] Won Betts, ACCOUNTS PAYABLE ASSOCIATE Acute medial meniscus tear of right knee, [...] on file 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 Acute medial meniscus [...] Date Date Date Date Date Date Date 12/20/22 12/23/22 12/25/22 01/03/23 01/06/23 01/10/23 01-13-23 Visit Number 3 4 5 6 7 8 9 ADDITIONAL HEP SHEETS ISSUED Took time to review TENS unit Nu Step or Recumbent bike NT Nu step level x 8 min arms and legs Nustep 8 minutes legs only Nu-step 10 min's legs only Nu-step LV 4 10 min's BLE's only Nu step L5 8 min Nustep L5 x 5 min Incline Stretch Hamstring Stretch NT time 30 sec x 3 done 3x30 sec 3x30 sec 3x30 sec 3x30 sec 30 sec x3 30 sec x3 3 x 30 sec 3 x 30 sec TKE manual stretch NT time NT 20x QS with TKE with blue fit ball 20x Qs with TKE with blue fit [id number] QS with TKE with blue fit ball TKE x10 hold 4 sec nt STM for swelling control NT NT NT NT NT nt Mat Table: SLR CLAMS BRIDGES SAQ HAMSTRING CURLS SLR 10x SLR with ER 6x Clamshells reviewed Bridging 10x NT 20x each mat exercises NT NT SAQs 20x; Cued to continue with HEP and going to the gym that she recently joined. Stair Training NT time NT NT NT Leg Press 4 holes NT time 4 holes showing 105 lbs 10 x 1 bilat done 105# 10x2 4 holes showing 105# 10x2 4 holes showing 105 lbs 2x10 110 # 20x Hip Machine NT time 45 lbs abd and flex 10 x 1 done 45# abd/flex 10x1 NT 45 lbs ABD/ Flex 2x10 ea 45# abd/flex 10x B [place] Hamstring curls 20 lbs - bilat 10 x 2 done 20# BLE 10x2 NT NT 25# 15x // bars: side steps, toe taps, heel raises, hip abd, hip ext, romberg, tandem, SL, rocker board etcNT time NT NT Side steps x2 lengths HR 2x10 HIP abd/ext x10 Rocker board Step ups 4 box Heel raises Rockerboard Step ups Side steps Heel raises IFC with ice NT, reviewed pt's home TENS unit use Done to end session in supine - If stim with CP done done Done Right knee Right knee. Progress Note/Re-Cert * Won Betts, ACCOUNTS PAYABLE ASSOCIATE - 01/13/2023 9:15 AM CDT Images from the original note were not included. Physical Therapy Visit/Daily Note 01/13/2023 Lindsay Pedersen 1955 ICD-9-CM ICD-10-CM 1. Acute medial meniscus tear of right knee, initial encounter 836.0 S83.241A FIDENCIO FRENCH Subjective: Pt reports that she continues to have right knee pain. States that she is feeling some weakness during exercise routine today. States that she was told by MD that she has some weakness in LE's as well. States that she has joined a gym, but has yet to go. Pain today is 4/10. Changes since last visit include continued weakness in B LE's. Objective: Objective Measurement/Observation: Pt amb without AD with fair to good gait pattern. Patient works on LE strengthening emphasis on Right LE quad musculature. Patient works hard with exercise though does note some fatigue with exercises. Patient encouraged to continue with HEP at least 2x/day and then to start at the gym for strengthening purposes. Specific exercises and treatment interventions are outlined on exercise worksheet document. Treatment Performed on This Visit: Manual Therapy (body part and techniques): no Therapeutic Procedure/Exercise: right LE strengthening Modalities: IFC with ice to right knee HEP given: reviewed Patient education: important to keep her knee strong to help stabilize the joint Assessment: Patient tolerated today's treatment working on LE strengthening to improve quality of life. Patient demonstrates limited right knee mobility with decreased strength and pain which is contributing to difficulty with using steps, walking distances and standing up from sitting. Patient would benefit from additional skilled therapy services and demonstrates good prognosis to achieve stated goals. Goals Addressed This Visit: LTG #2 and #4. Plan: Patient would benefit from the following modification on next visit: Continue per POC. Therapy will continue to address these impairments in order to progress towards functional goals. Won Betts PTA [facility] Rehabilitation Services ATTENTION PHYSICIAN If you [...] Primary documented in this encounter Care Teams Risk Officer Relationship Specialty Start Date End Date Fidencio French MD [address] [place] [address] PCP - General Internal Medicine 06/12/22 documented as of this encounter
--- OUTSIDE RECORDS SUMMARY | 2024-03-23 01:51 | XMS_ITS | Encounter Summary ---
Author Organization [facility] Address [address] [facility] [address] [place] [address] Care Team Providers Care Trust And Estates Attorney Name Role Phone Amina Mccray Emily ROUTE DELIVERY MANAGER Primary Care Provider [phone] Reason for Visit * Reason Onset Date Comments pt wants a trey inj 03/28/2022 Encounter Details Date Type Department Care Team (Late st Contact Info) Description 03/28/2022 Telephone [facility] Orthopedics and Sports Medicine [address] [facility] [address] [place] [address] [place] [address] [place] [address] [address] [place], [place] [phone] pt wants a trey inj Social History Tobacco Use Types Packs/Day Years Used Date Smoking Tobacco: Never Smokeless Tobacco: Never Alcohol Use Standard Drinks/Week Comments No 0 (1 standard drink = 0.6 oz pur e alcohol) Comments Unknown Sex and Gender Information Value Date Recorded Sex Assigned at Not on file Legal Sex Female 5:35 PM 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 Appt made for 04/04/22 at 11:15am in [place]. IRATORY DIRECTOR * Telephone Encounter - Juhi Christensen - 03/28/2022 8:44 AM CST Pt is scheduled for April for rt meniscus surg and she wants to know if she can get a trey inj to get her through until April-please [phone] IRATORY DIRECTOR documented in this encounter Plan of Treatment Not on file documented as of this encounter Visit Diagnoses Not on filedocumented in this encounter Care Teams Trust And Estates Attorney Relationship Specialty Start Date End Date Amina Mccray NP PCP - General Nurse Practitioner 10/04/21 06/11/22 documented as of this encounter
--- OUTSIDE RECORDS SUMMARY | 2024-03-23 01:51 | XMS_ITS | Encounter Summary ---
Author Organization [facility] Healthcare Address [address] [place] [address] Care Team Providers Care Field Operator Name Role Phone Fidencio French MD Primary Care Provider [phone] Reason for Visit * Reason Comments OT Treatment * Consultation (Routine) - Closed Specialty Diagnoses / Procedures Referred By Kirt carvalho Referred To Contact Occupational Therapy Diagnoses Lymphedema Acute medial meniscus tear of right knee, initial encounter Kamar Gandara DO [address] [facility] [address] [address] Phone: tel: fax: External Order Referral ID Status Reason Start Date Expiration Date V isits Requested Visits Authorized [id number] Closed Specialty Services Required 09/12/2022 10/12/2023 24 24 Encounter Details Date Type Department Care Team (Late st Contact Info) Description 10/18/2022 11:00 AM CDT Therapy [facility] Occupational Therapy [address] [place] [id number] Venessa Haskins, OT Lymphedema (Primary Dx) Social History Tobacco Use Types Packs/Day Years Used Date Smoking Tobacco: Never Passive Smoke Exposure: Past Smokeless Tobacco: Never Alcohol Use Standard Drinks/Week Comments No 0 (1 standard drink = 0.6 oz pur e alcohol) Comments Unknown Sex and Gender Information Value Date Recorded Sex Assigned at Not on file 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 OT Daily Treatment Note Lindsay Coker Slava 1955 Subjective: Patient has been traveling this past week so she has not worn her compression garments.Patient did wear her compression leggings some during the trip. Patient reports increased pain in her knee over the past week. Patient has a mensicus tear which she contributes the pain too. Pain: 0 Objective: R LE cirmcumferential measurements (measured straight up from floor in cm) 09/25 10/02 10/07 10/09 10/18 MTP 26 21.4 20.7 nt 21 heel 33 30.5 28.5 nt 31.8 ankle 25.6 24.2 24.5 nt 26 10 cm 23.5 23 25.5 nt 23 20 cm 33 30 34.6 nt 34 30 cm 41 40.3 40 nt 41.6 40 cm 42 38 50.8 41.5 37 50 cm 65 57 51.9 52.7 60 cm 73.5 71 68 69 70 cm 82 82.7 nt 80 Around knee cap 45.3 48 43 43.7 46 L LE circumferential measurements (measured straight up from floor in cm) 09/25 10/02 10/07 MTP 26 nt nt heel 29.8 nt nt ankle 25 nt nt 10 cm 23 nt nt 20 cm 30 nt nt 30 cm 37.8 nt nt 40 cm 36.8 nt nt 50 cm 56.5 54.5 nt 60 cm 77 71.8 nt 70 cm 81 81 nt Around knee cap 39 nt nt Treatment Provided: Measurements taken of R leg Skin care- patient showered this morning and applied lotion prior to therapy appointment MLD- Therapist completes MLD sequence for unilateral LE swelling (R LE) utilizing IA and AII anastomosis. Sequence completed through R ankle while patient supine on treatment table. Short neck and deep abdominal techniques completed. Compression- Therapist bandages R LE slightly over the knee using stockinette, artiflex padding, silveira foam piece at anterior ankle crease and short stretch bandages (6 cm, 8 cm, 10 cm and 2- 12 cm). Therapist applies R thigh reduction kit. Assessment: Patient's R leg measurements fluctuated. Patient's lower leg and knee measurements increased but her thigh measurements remained about the same. Patient to return for CDT (Complete Decongestive Therapy) to decongest R leg for wound and infection prevention. Plan:Continue per POC Patient to keep compression bandages and reduction kit on R leg at all times. Patient to remove bandages and reduction kit if she experiences pain that does not resolve with ambulation, numbness/tingling in toes, and/or shortness of breath. Start Time: 1100 End Time: 1145 Venessa Haskins OT documented in this encounter Plan of Treatment Not on file documented as of this encounter Visit Diagnoses Diagnosis Lymphedema- Primary Other noninfectious lymphedema documented in this encounter Care Teams Field Operator Relationship Specialty Start Date End Date Fidencio French MD [address] [place] [address] PCP - General Internal Medicine 06/12/22 documented as of this encounter
--- OUTSIDE RECORDS SUMMARY | 2024-03-23 01:51 | XMS_ITS | Encounter Summary ---
Author Organization [facility] Healthcare Address [address] [place] [address] Care Team Providers Care Tank Calibrator Name Role Phone Fidencio French MD Primary Care Provider [phone] Reason for Visit * Reason Comments PT Treatment * Physical Therapy (Routine) - Closed Specialty Diagnoses / Procedures Referred By Kirt t Referred To Contact Physical Therapy Diagnoses Acute medial meniscus tear of right knee, initial encounter Kamar Gandara DO [address] [address] Phone: tel: fax: [facility] Physical Therapy [address] [place] [address] Phone: tel: fax: Referral ID Status Reason Start Date Expiration Date V isits Requested Visits Authorized [id number] Closed Specialty Services Required 12/09/2022 03/23/2023 12 99 Encounter Details Date Type Department Care Team (Late st Contact Info) Description 12/23/2022 3:00 PM CDT Therapy [facility] OP Physical Therapy [address] [place], [place] [id number] Kristina Hernandez, DARYA Acute medial meniscus tear [...] on file 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 Acute [...] to 02-03-23 Date Date Date Date Date 12-09-22 12/17/22 12/20/22 12/23/22 Visit Number 1 2 3 4 ADDITIONAL HEP SHEETS ISSUED Took time to review TENS unit Nu Step or Recumbent bike Level 4 for 5 minutes NT Nu step level x 8 min arms and legs Incline Stretch Hamstring Stretch 3x 10 sec 3 x 30 sec hold 3 x 30 sec hold NT time 30 sec x 3 TKE manual stretch QS with TKE with blue fit ball 20x NT time NT STM for swelling control NT NT Mat Table: SLR CLAMS BRIDGES SAQ HAMSTRING CURLS 10X 10X 10X 10x 2 each SLR 10x SLR with ER 6x Clamshells reviewed Bridging 10x NT Stair Training NT time NT Leg Press NT time 4 holes showing 105 lbs 10 x 1 bilat Hip Machine NT time 45 lbs abd and flex 10 x 1 [place] Hamstring curls 20 lbs - bilat 10 x 2 // bars: side steps, toe taps, heel raises, hip abd, hip ext, romberg, tandem, SL, etc NT time NT IFC with ice Next visit IFC/CP right knee NT, reviewed pt's home TENS unit use Done to end session in supine - If stim with CP Progress Note/Re-Cert * Kristina Hernandez PTA - 12/23/2022 3:00 PM CDT Images from the original note were not included. Physical Therapy Visit/Daily Note 12/23/2022 Lindsay Pedersen 1955 ICD-9-CM ICD-10-CM 1. Acute medial meniscus tear of right knee, initial encounter 836.0 S83.241A FIDENCIO FRENCH Subjective: Pt reports she gets gel shots in her knee and she has a shot scheduled in a few days. . Pt reports nithin tshe keeps busy everyday and has to do do stairs at home. Pt is reporting continued difficulty with swelling and right knee pain. Pain today is 2/10 entering the dept. No Changes since last visit include Objective: Objective Measurement/Observation: Pt ambulates w/o device slight limp with wt bearing right. Pt performed strengthening for right knee - weakness noted in right knee but pt is motivated to get stronger. If stim with CP to end session - tolerated well. Specific exercises and treatment interventions are outlined on exercise worksheet document. Treatment Performed on This Visit: Manual Therapy (body part and techniques): none Therapeutic Procedure/Exercise: Right knee strengthening to improve gait and strength and decrease pain. Modalities: If stim with CP HEP given: reports compliance Patient education: Pt educated on importance of her HEP Assessment: Patient tolerated today's well. Patient demonstrates R meniscus tear which is contributing to difficulty with pain, mobility, and proper gait. Patient would benefit from additional skilled therapy services and demonstrates good prognosis to achieve stated goals. Goals Addressed This Visit: STGs Plan: Patient would benefit from the following modification on next visit: continue POC. Therapy will continue to address these impairments in order to progress towards functional goals. Kristina Hernandez PTA [facility] ATTENTION PHYSICIAN If you are unable to [...] Primary documented in this encounter Care Teams Tank Calibrator Relationship Specialty Start Date End Date Fidencio French MD [facility] [place] [address] PCP - General Internal Medicine 06/12/22 documented as of this encounter
--- OUTSIDE RECORDS SUMMARY | 2024-03-23 01:51 | XMS_ITS | Encounter Summary ---
Author Organization [facility] Address [address] [facility] [address] [place] [address] Care Team Providers Care Farmer Diversified Crops Name Role Phone Fidencio French MD Primary Care Provider [phone] Reason for Visit * Reason Onset Date Comments surgery 07/02/2022 Encounter Details Date Type Department Care Team (Late st Contact Info) Description 07/02/[address] 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 Last office visit was 04/18/22 and pt did received an gel injection. documented in this encounter Plan of Treatment Not on file documented as of this encounter Visit Diagnoses Not on filedocumented in this encounter Care Teams Farmer Diversified Crops Relationship Specialty Start Date End Date Fidencio French MD [address] [place] [address] PCP - General Internal Medicine 06/12/22 documented as of this encounter
--- OUTSIDE RECORDS SUMMARY | 2024-03-23 01:51 | XMS_ITS | Encounter Summary ---
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 Name Role Phone Amina Mccray CONSOLE ASSEMBLER Primary Care Provider [phone] Reason for Visit * Reason Comments Constipation Abnormal Lab Encounter Details Date Type Department Care Team ([facility] st Contact Info) Description 05/13/2022 1:30 PM COMMERCIAL SUBCONTRACTOR - 05/13/2022 5:34 PM COMMERCIAL SUBCONTRACTOR Emergency [address] [address] Jude Rhoades MD [address] [place] [id number] Constipation, unspecified constipation type (Primary Dx); Renal insufficiency Discharge Disposition: Discharge to home or self care Social History Tobacco Use Types Packs/Day Years Used Date Smoking Tobacco: Never Smokeless Tobacco: Never Alcohol Use Standard Drinks/Week Comments No 0 (1 standard drink = 0.6 oz pur e alcohol) Comments Unknown Sex and Gender Information Value Date Recorded Sex Assigned at Not on file Legal Sex Female 5:35 PM COMMERCIAL SUBCONTRACTOR Gender Identity Not on file Sexual Orientation Not on file documented as of this encounter Last Filed Vital Signs Vital Sign Reading Time Taken Comments Blood Pressure 143/91 05/13/2022 2:30 PM COMMERCIAL SUBCONTRACTOR Pulse 81 05/13/2022 2:30 PM COMMERCIAL SUBCONTRACTOR Temperature 36.6 ??C (97.9 ??F) 05/13/2022 9:25 AM CS T Respiratory Rate 22 05/13/2022 2:30 PM COMMERCIAL SUBCONTRACTOR Oxygen Saturation 98% 05/13/2022 2:30 PM COMMERCIAL SUBCONTRACTOR Inhaled Oxygen Concentration - - Weight 100.2 kg (221 lb) 05/13/2022 9:25 AM COMMERCIAL SUBCONTRACTOR Height 154.9 cm (5' 1 ) 05/13/2022 9:25 AM COMMERCIAL SUBCONTRACTOR Body Mass Index 41.76 05/13/2022 9:25 AM COMMERCIAL SUBCONTRACTOR documented in this encounter Discharge Instructions * Discharge Instructions* Jude Rhoades MD - 05/13/2022 3:16 PM COMMERCIAL SUBCONTRACTOR Ms. Pedersen, stay well hydrated with 6-8 cups of water daily. Use the medicines as prescribed for constipation and if they do not worsened next few days you may trial the suppository. Please continue all home medicines. Follow up with your primary care provider over the phone later this week to updatethem on your visit. ERCIAL SUBCONTRACTOR ERCIAL SUBCONTRACTOR * Attachments The following attachments cannot be sent through Care Everywhere. * Constipation (AfterCare(R) Instructions(ER/ED)) (Lithuanian) * Impaired Kidney Function (AfterCare(R) Instructions(ER/ED)) (Lithuanian) documented in this encounter Medications at Time of Discharge Accu-Chek Guide test strips strip USE ONE STRIP TO CHECK GLUCOSE DAILY 04/29/2022 Accu-Chek Softclix Lancets lancets USE TO CHECK GLUCOSE ONCE DAILY 04/29/2022 amLODIPine (NORVASC) 10 mg tablet Take 1 tablet (10 mg total) by mouth daily atorvastatin (LIPITOR) 20 mg tablet Take 1 tablet (20 mg total) by mouth daily 10/20/2021 losartan (COZAAR) 100 mg tablet Take 1 tablet (100 mg total) by mouth daily 3 02/23/2018 bisacodyL (DULCOLAX) 10 mg suppositoryIndi cations:constip ation Insert 1 suppository (10 mg total) into the rectum daily 12 suppository 05/13/2022 06/11/19 24 ergocalciferol (VITAMIN D) 50,000 unit capsule TK 1 C PO ONCE WEEKLY WITH A LARGE MEAL 1 02/25/2018 06/20/19 23 hydroCHLOROthia zide (HYDRODIURIL) 12.5 mg tablet Take 1 tablet (12.5 mg total) by mouth daily 12/21/2019 06/11/19 24 Linzess 72 mcg capsule TAKE 1 CAPSULE BY MOUTH ONCE DAILY ON AN EMPTY STOMACH AT LEAST 30 MINUTES BEFORE 1ST MEAL OF THE DAY 11/23/2021 06/20/19 23 magnesium citrate solution Take 296 mL by mouth once for 1 dose 296 mL 05/13/2022 06/20/19 23 metFORMIN (GLUCOPHAGE) 500 mg tablet TK 1 T PO QHS 2 03/02/2018 06/20/19 23 polyethylene glycol (MIRALAX) 17 gram packetIndicatio ns:constipation Take 1 packet (17 g total) by mouth daily for 3 days 3 packet 05/13/2022 06/20/19 23 sAXagliptin (ONGLYZA) 2.5 mg tablet Take 2.5 mg by mouth daily 10/17/2018 06/20/19 23 Trulicity 0.75 mg/0.5 mL pen injector INJECT 0.5 MILLILITER (0.75MG) BY SUBCUTANEOUS ROUTE EVERY 7 DAYS 12/21/2021 06/20/19 23 documented as of this encounter Ordered Prescriptions Prescription Sig Dispense Quantity Refills Last Filled Start Date End Date bisacodyL (DULCOLAX) 10 mg suppositoryIndica tions:constipatio n Insert 1 suppository (10 mg total) into the rectum daily 12 suppository 3 06/11/19 24 magnesium citrate solution Take 296 mL by mouth once for 1 dose 296 mL 3 06/20/19 23 polyethylene glycol (MIRALAX) 17 gram packetIndications :constipation Take 1 packet (17 g total) by mouth daily for 3 days 3 packet 3 06/20/19 23 documented in this encounter Discharge Disposition Disposition Code Departure Means Destination Comment s Discharge to home or self care documented in this encounter ED Notes * Mac Corey RN - 05/13/2022 4:48 PM CST Bed: ED07 Expected date: Expected time: Means of arrival: Comments: Mac Corey RN 05/13/22 1648 ERCIAL SUBCONTRACTOR * Jude Rhoades MD - 05/13/2022 3:03 PM CST HPI Chief Complaint Patient presents with Constipation Abnormal Lab HPI 5:28 PM Lindsay Pedersen is a 67 y.o. female presenting to the ED c/o constipation. Symptoms ongoing for approximately a week. She is trialed Metamucil and Colace at home without relief. She notes at night she is been feeling hot and sweaty. She denies any chest pain or shortness of breath. She denies any vomiting. She had a well check recently was told that her white blood cell count was elevated and that she had an elevated creatinine level. Patient History: Past Medical History: Diagnosis Date Benign neoplasm of breast Blood in urine Hypertension Proteinuria No past surgical history on file. Family History Problem Relation Age of Onset Breast cancer Sister Adenocarcinoma of breast - (Added by TW Conv) Breast cancer Father's Sister Social History Tobacco Use Smoking status: Never Smokeless tobacco: Never Substance and Sexual Activity Drug use: No Sexual activity: Not on file Alcohol Use: Not on file No current facility-administered medications for this encounter. Current Outpatient Medications: amLODIPine (NORVASC) 10 mg tablet atorvastatin (LIPITOR) 20 mg tablet bisacodyL (DULCOLAX) 10 mg suppository ergocalciferol (VITAMIN D) 50,000 unit capsule hydroCHLOROthiazide (HYDRODIURIL) 12.5 mg tablet Linzess 72 mcg capsule losartan (COZAAR) 100 mg tablet magnesium citrate solution metFORMIN (GLUCOPHAGE) 500 mg tablet polyethylene glycol (MIRALAX) 17 gram packet sAXagliptin (ONGLYZA) 2.5 mg tablet Trulicity 0.75 mg/0.5 mL pen injector Review of Systems Review of Systems All other systems reviewed and are negative. All systems reviewed and are neg or non contributory for this patients presentation today other than as stated in the HPI . Physical Exam ED Triage Vitals [05/13/22 0925] Temp Pulse Resp BP SpO2 36.6 ??C (97.9 ??F) 86 20 150/83 99 % Temp src Heart Rate Source Patient Position BP Location FiO2 (%) Oral Monitor Sitting Right arm -- Height Height Method Weight Weight Method 1.549 m (5' 1 ) Stated 100.2 kg (221 lb) Stated Physical Exam Vitals reviewed. HENT: Mouth/Throat: Mouth: Mucous membranes are moist. Pharynx: Oropharynx is clear. Eyes: Pupils: Pupils are equal, round, and reactive to light. Cardiovascular: Rate and Rhythm: Normal rate and regular rhythm. Heart sounds: Normal heart sounds. Pulmonary: Effort: Pulmonary effort is normal. Breath sounds: Normal breath sounds. Abdominal: Palpations: Abdomen is soft. Skin: General: Skin is warm. Neurological: General: No focal deficit present. Mental Status: She is alert. Psychiatric: Mood and Affect: Mood normal. Procedures MDM Labs Reviewed URINALYSIS AND REFLEX TO MICROSCOPIC AND CULTURE - Abnormal Result Value Color, ur Yellow Clarity, ur Cloudy (*) Specific gravity, ur 1.011 pH, urine 6.0 Protein, ur ql 1+ (*) Glucose, ur ql Negative Ketones, ur Negative Bilirubin, ur Negative Blood, ur Negative Urobilinogen, ur <2.0 Nitrite, ur Negative Leukocyte esterase, ur Negative UA reflex comment Reflex to microscopic UA will be performed. Narrative: Urine pH is affected by diet, medications, systemic acid-base disturbances, and renal tubular function. pH may affect urinary stone formation. For example, urine pH below 6.0 may help reduce the tendency for calcium phosphate stones and pH greater than 6.0 may reduce the tendency for uric acid stone formation. Source: [facility] [employer].Last revised 04-03-2017 CBC WITH AUTO DIFFERENTIAL - Abnormal WBC 12.1 (*) Hgb 12.2 Hct 37.9 Plt 306 MPV 10.8 RBC 4.42 MCV 85.7 MCH 27.6 MCHC 32.2 (*) RDW CV 15.6 (*) RDW SD 48.5 (*) NRBC abs 0.00 COMPREHENSIVE METABOLIC PANEL - Abnormal Sodium 135 Potassium, pl 4.2 Chloride 100 CO2 24 Anion gap 11 BUN 12 Creatinine 1.40 (*) Glucose 117 Calcium 10.1 Bilirubin, total 0.3 Protein, pl 8.8 (*) Albumin 4.1 Alk phos 91 ALT 12 AST 16 URINALYSIS, MICROSCOPIC ONLY - Abnormal WBC, ur 0-5 RBC, ur 0-2 Epithelial cells, squamous, ur 11-20 (*) Bacteria, ur 1+ (*) Mucous, ur Present (*) Culture Reflex Comment Value: Reflex conditions for urine culture (WBC >10) not met. DIFFERENTIAL AUTO - Abnormal Neutrophil abs 6.9 (*) Imm gran abs 0.0 Lymphocyte abs 4.4 (*) Monocyte abs 0.6 Eosinophil abs 0.1 Basophil abs 0.0 Neutrophil pct 57.1 Imm gran pct 0.2 Lymphocyte pct 36.6 Monocyte pct 5.0 Eosinophil pct 0.8 Basophil pct 0.[address] Abdomen Pelvis WO Contrast Final Result XR Chest 1 View Final Result BP 143/91 Pulse 81 Temp 36.6 ??C (97.9 ??F) (Oral) Resp 22 Ht 154.9 cm (5' 1 ) Wt 100.2 kg (221 lb) SpO2 98% BMI 41.76 kg/m?? MDM Amount and/or Complexity of Data Reviewed Clinical lab tests: reviewed Tests in the radiology section of CPT??: reviewed Decide to obtain previous medical records or to obtain history from someone other than the patient:yes ED Course as of 05/13/22 1728 Time: 05/13 1347 Comment: EXAM DESCRIPTION: XR CHEST 1 VIEW REASON FOR STUDY: abd pain Abdominal discomfort, constipation x5 days TECHNIQUE: PA radiographic view of the chest acquired. COMPARISON: 02/07/2022 FINDINGS: LUNGS/PLEURA: No focal consolidation or pneumothorax. No pleural effusion. HEART/MEDIASTINUM: Heart size is normal. Normal mediastinal and hilar contours. HARDWARE/LINES/TUBES: None. BONES: No acute findings. OTHER: No other significant finding. IMPRESSION: No acute cardiopulmonary abnormality. By: Jude Rhoades MD Time: 05/13 1347 Comment: CT abd/pelvis: IMPRESSION: 1. No bowel obstruction or appendicitis. Mild amount of formed colonic fecal debris. 2. Tiny nodules in the right lower lobe. Based upon Fleischner society criteria, if patient is at low risk then no additional follow-up required and if patient is high risk then optional follow-up CT at 12 months. By: Jude Rhoades MD This examination was transcribed using the [employer] voice recognition system without human rehabilitation counselor. In an effort to expedite patient care, this report has not been adjusted for typographical, grammatical, and syntax by a trained director global medical affairs. Clinical Impression: Constipation, unspecified constipation type Renal insufficiency Jude Rhoades MD 05/13/22 1728 ERCIAL SUBCONTRACTOR * Lurdes Fletcher RN - 05/13/2022 10:00 AM CST Pt states abnormal result in urine and also states white blood cells is high . Lurdes Fletcher RN 05/13/22 1001 ERCIAL SUBCONTRACTOR * Lurdes Fletcher RN - 05/13/2022 9:55 AM CST Pt reports no BM in 5 days. Pt states still passing gas. Pt reports being hot at home. Pt denies taking temp at home. Pt states putting ice on me and it melts really fast . Pt states taking colacewith no relief. Pt denies N/V/D. ERCIAL SUBCONTRACTOR documented in this encounter Plan of Treatment Not on file documented as of this encounter Procedures Procedure Name Priority Date/Time Associated Diagnosis Comments CT ABDOMEN PELVIS WO CONTRAST ED 05/13/2022 12:19 PM COMMERCIAL SUBCONTRACTOR XR CHEST 1 VIEW ED Urgent/IP Urgent 05/13/2022 10:59 AM COMMERCIAL SUBCONTRACTOR EGFR STAT 05/13/2022 10:27 AM COMMERCIAL SUBCONTRACTOR DIFFERENTIAL AUTO STAT 05/13/2022 10: 27 AM COMMERCIAL SUBCONTRACTOR CBC WITH AUTO DIFFERENTIAL STAT 05/13/2022 10:27 AM COMMERCIAL SUBCONTRACTOR COMPREHENSIVE METABOLIC PANEL STAT 05/13/2022 10:27 AM COMMERCIAL SUBCONTRACTOR URINALYSIS AND REFLEX TO MICROSCOPIC AND CULTURE STAT 05/13/2022 10:13 AM COMMERCIAL SUBCONTRACTOR URINALYSIS, MICROSCOPIC ONLY STAT 05/13/2022 10:13 AM COMMERCIAL SUBCONTRACTOR documented in this encounter Results * CT Abdomen Pelvis WO Contrast (05/13/2022 12:19 PM COMMERCIAL SUBCONTRACTOR) Anatomical Region Laterality Modality Body N/A Computed Tomogra phy 05/13/2022 12:2 8 PM COMMERCIAL SUBCONTRACTOR Narrative 05/13/2022 12:38 PM COMMERCIAL SUBCONTRACTOR EXAM DESCRIPTION: ?? CT ABDOMEN PELVIS WO CONTRAST REASON FOR STUDY: ?? Abdominal pain, acute, nonlocalized ?? Abdominal pain. ??Constipation. ??Pt reports no BM in 5 days. Pt states still passing gas. Pt reports being hot at home. Pt denies taking temp at home. Pt states taking colace with no relief. Pt denies N/V/D. ? Hx: ??HTN, Hysterectomy ?? TECHNIQUE: CT scan of the abdomen and pelvis performed without intravenous and ??without ??oral contrast using helical scanning technique. Reconstructed coronal and sagittal MPR images reviewed. All images stored on PACS. ?? Automated exposure control was used as a dose optimization technique for this examination. COMPARISON: ?? None FINDINGS: The sensitivity for detection of visceral lesions is diminished without the use of intravenous contrast. ABDOMEN: Visualized portions of the lung bases show no pneumonia. ??Nodule in the right lower lobe on axial image 11 measuring 0.3 cm x 0.3 cm. ??Smaller nodule in the right lower lobe on axial image 14. ??No hydronephrosis. ??Small cortical hypodensity of the left kidney that is too small to fully characterize and likely represents a cyst. ??No additional follow-up of this finding needed. ?? Hiatal hernia. ??No free air, free fluid or pathologic sized nodes of the abdomen. ??Atherosclerotic vascular disease PELVIS: Some formed colonic fecal debris. ??No bowel obstruction. ??Mild amount of formed colonic fecal debris. ??No appendicitis. ??No free air, free fluid or pathologic sized nodes of the pelvis. ??Some spondylosis of the spine. ?? IMPRESSION: ?? 1. ?? No bowel obstruction or appendicitis. ??Mild amount of formed colonic fecal debris. 2. ?? Tiny nodules in the right lower lobe. ??Based upon Fleischner society criteria, if patient is at low risk then no additional follow-up required and if patient is high risk then optional follow-up CT at 12 months. THIS IS AN ELECTRONICALLY VERIFIED FINAL REPORT 05/13/2022 12:38 PM - Electronically signed by ??Ruddy DEAN D: ??05/13/2022 12:38 PM T: Report ID: [id number] Reading Location: ??[id number] Procedure Note Ruddy Brewer, DO - 05/13/2022 EXAM DESCRIPTION: CT ABDOMEN PELVIS WO CONTRAST REASON FOR STUDY: Abdominal pain, acute, nonlocalized Abdominal pain. Constipation. Pt reports no BM in 5 days. Pt statesstill passing gas. Pt reports being hot at home. Pt denies taking temp athome. Pt states taking colace with no relief. Pt denies N/V/D. Hx: HTN, Hysterectomy TECHNIQUE: CT scan of the abdomen and pelvis performed without intravenousand without oral contrast using helical scanning technique. Reconstructed coronal and sagittal MPR images reviewed. All images stored on PACS. Automated exposure control was used as a dose optimization technique forthis examination. COMPARISON: None FINDINGS: The sensitivity for detection of visceral lesions is diminished without the use of intravenous contrast. ABDOMEN: Visualized portions of the lung bases show no pneumonia. Nodule in theright lower lobe on axial image 11 measuring 0.3 cm x 0.3 cm. Smaller nodule inthe right lower lobe on axial image 14. No hydronephrosis. Small cortical hypodensity of the left kidney that is too small to fully characterize and likely represents a cyst. No additional follow-up of this finding needed. Hiatal hernia. No free air, free fluid or pathologic sized nodes of the abdomen. Atherosclerotic vascular disease PELVIS: Some formed colonic fecal debris. No bowel obstruction. Mild amount of formed colonic fecal debris. No appendicitis. No free air, free fluid or pathologic sized nodes of the pelvis. Some spondylosis of the spine. IMPRESSION: 1. No bowel obstruction or appendicitis. Mild amount of formed colonic fecal debris. 2. Tiny nodules in the right lower lobe. Based upon Fleischner society criteria, if patient is at low risk then no additional follow-up requiredand if patient is high risk then optional follow-up CT at 12 months. THIS IS AN ELECTRONICALLY VERIFIED FINAL REPORT 05/13/2022 12:38 PM - Electronically signed by Ruddy DEAN T: Report ID: [id number] Reading Location: [id number] us Lynn LOYA IMG CT PROCEDURES Final Resul t * XR Chest 1 View (05/13/2022 10:59 AM COMMERCIAL SUBCONTRACTOR) Anatomical Region Laterality Modality Body, Chest N/A Computed Radiogr aphy 05/13/2022 11:0 8 AM COMMERCIAL SUBCONTRACTOR Narrative 05/13/2022 11:09 AM COMMERCIAL SUBCONTRACTOR EXAM DESCRIPTION: ?? XR CHEST 1 VIEW REASON FOR STUDY: ?? abd pain ?? Abdominal discomfort, constipation x5 days ?? TECHNIQUE: ?? PA ??radiographic view of the chest acquired. COMPARISON: ?? 02/07/2022 FINDINGS: LUNGS/PLEURA: ?? No focal consolidation or pneumothorax. No pleural effusion. HEART/MEDIASTINUM: ?? Heart size is normal. Normal mediastinal and hilar contours. HARDWARE/LINES/TUBES: ?? None. BONES: ?? No acute findings. OTHER: ?? No other significant finding. IMPRESSION: ?? No acute cardiopulmonary abnormality. THIS IS AN ELECTRONICALLY VERIFIED FINAL REPORT 05/13/2022 11:09 AM - Electronically signed by ??Efe NUÑEZ D: ??05/13/2022 11:09 AM T: Report ID: [id number] Reading Location: ??[id number] Procedure Note Efe Kumar MD - 05/13/2022 EXAM DESCRIPTION: XR CHEST 1 VIEW REASON FOR STUDY: abd pain Abdominal discomfort, constipation x5 days TECHNIQUE: PA radiographic view of the chest acquired. COMPARISON: 02/07/2022 FINDINGS: LUNGS/PLEURA: No focal consolidation or pneumothorax. Nopleural effusion. HEART/MEDIASTINUM: Heart size is normal. Normal mediastinal and hilar contours. HARDWARE/LINES/TUBES: None. BONES: No acute findings. OTHER: No other significant finding. IMPRESSION: No acute cardiopulmonary abnormality. THIS IS AN ELECTRONICALLY VERIFIED FINAL REPORT 05/13/2022 11:09 AM - Electronically signed by Efe Kumar M.D. T: Report ID: [id number] Reading Location: [id number] Lynn LOYA IMG XR PROCEDURES Final Resul t * eGFR (05/13/2022 10:27 AM COMMERCIAL SUBCONTRACTOR) eGFR 41 mL/min/1. 73 m2 MICHELA SMITH Comment: Interpretive [...] interpretive data was last reviewed 2021. Blood 05/13/2022 10:2 7 AM COMMERCIAL SUBCONTRACTOR 05/13/2022 10:46 AM COMMERCIAL SUBCONTRACTOR us Lynn LOYA LAB BLOOD ORDERABLES Final Re sult [facility] [address] [facility] Department [place] [address] * (ABNORMAL) Differential, auto (05/13/2022 10:27 AM COMMERCIAL SUBCONTRACTOR) Neutrophil abs 6.9(H) 1.7 - 6.5 K/cumm [facility] Imm gran abs 0.0 0.0 - 0.1 K/cumm [facility] Lymphocyte abs 4.4(H) 0.8 - 3.3 K/cumm [facility] Monocyte abs 0.6 0.2 - 0.8 K/cumm [facility] Eosinophil abs 0.1 0.0 - 0.5 K/cumm [facility] Basophil abs 0.0 0.0 - 0.1 K/cumm [facility] Neutrophil pct 57.1 % [facility] Comment: Interpretive Data Percent cell count reference ranges are not reported, since discordance with absolute values may lead to misinterpretation of CBC data. Current Interpretive Data was last revised on 2017. Imm gran pct 0.2 % [facility] Comment: Interpretive Data Percent cell count reference ranges are not reported, since discordance with absolute values may lead to misinterpretation of CBC data. Current Interpretive Data was last revised on 2017. Lymphocyte pct 36.6 % [facility] Comment: Interpretive Data Percent cell count reference ranges are not reported, since discordance with absolute values may lead to misinterpretation of CBC data. Current Interpretive Data was last revised on 2017. Monocyte pct 5.0 % [facility] Comment: Interpretive Data Percent cell count reference ranges are not reported, since discordance with absolute values may lead to misinterpretation of CBC data. Current Interpretive Data was last revised on 2017. Eosinophil pct 0.8 % [facility] Comment: Interpretive Data Percent cell count reference ranges are not reported, since discordance with absolute values may lead to misinterpretation of CBC data. Current Interpretive Data was last revised on 2017. Basophil pct 0.3 % [facility] Comment: Interpretive Data Percent cell count reference ranges are not reported, since discordance with absolute values may lead to misinterpretation of CBC data. Current Interpretive Data was last revised on 2017. Blood 05/13/2022 10:2 7 AM COMMERCIAL SUBCONTRACTOR 05/13/2022 10:46 AM COMMERCIAL SUBCONTRACTOR us Lynn LOAY LAB BLOOD ORDERABLES Final Re sult [facility] [address] Department [place] [address] * (ABNORMAL) Comprehensive metabolic panel (05/13/2022 10:27 AM COMMERCIAL SUBCONTRACTOR) Sodium 135 135 - 145 mmol/L [facility] Potassium, pl 4.2 3.3 - 4.9 mmol/L [facility] Chloride 100 97 - 110 mmol/L [facility] CO2 24 22 - 32 mmol/L [facility] Anion gap 11 2 - 15 mmol/L [facility] BUN 12 8 - 25 mg/dL [facility] Creatinine 1.40(H) 0.60 - 1.10 mg/dL [facility] Glucose 117 70 - 199 mg/dL [facility] Comment: Interpretive Data Fasting glucose >/= [...] interpretive data was last revised 2022. Calcium 10.1 8.5 - 10.3 mg/dL [facility] Bilirubin, total 0.3 0.1 - 1.2 mg/dL [facility] Protein, pl 8.8(H) 6.5 - 8.5 g/dL [facility] Albumin 4.1 3.5 - 5.0 g/dL [facility] Alk phos 91 40 - 130 Units/L [facility] ALT 12 7 - 45 Units/L [facility] AST 16 10 - 45 Units/L [facility] Blood 05/13/2022 10:2 7 AM COMMERCIAL SUBCONTRACTOR 05/13/2022 10:46 AM COMMERCIAL SUBCONTRACTOR Lynn OLYA LAB BLOOD ORDERABLES Final Re sult Performing Organization Address [facility] de Phone Number MICHELA [address] [place] [address] * (ABNORMAL) CBC with auto differential (05/13/2022 10:27 AM COMMERCIAL SUBCONTRACTOR) WBC 12.1(H) 3.8 - 9.9 K/cumm [facility] Hgb 12.2 11.9 - 15.5 g/dL [facility] Hct 37.9 35.6 - 45.5 % [facility] Plt 306 150 - 400 K/cumm [facility] MPV 10.8 9.1 - 12.3 fL [facility] RBC 4.42 3.90 - 5.20 M/cumm [facility] MCV 85.7 81.3 - 96.4 fL [facility] MCH 27.6 27.1 - 33.3 pg [facility] MCHC 32.2(L) 32.3 - 35.7 g/dL [facility] RDW CV 15.6(H) 11.1 - 14.9 % [facility] RDW SD 48.5(H) 35.7 - 48.1 fL [facility] NRBC abs 0.00 0.00 - 0.01 K/cumm [facility] Blood 05/13/2022 10:2 7 AM COMMERCIAL SUBCONTRACTOR 05/13/2022 10:46 AM COMMERCIAL SUBCONTRACTOR Lynn LOYA LAB BLOOD ORDERABLES Final Re sult Performing Organization Address City/[facility] Co de Phone Number MICHELA [facility] Department [place] [address] * (ABNORMAL) Urinalysis, microscopic only (05/13/2022 10:13 AM COMMERCIAL SUBCONTRACTOR) WBC, ur 0-5 0 - 5 /HPF [facility] RBC, ur 0-2 0 - 2 /HPF [facility] Epithelial cells, squamous, ur 11-20(A) 0 - 5 /HPF [facility] Comment:Suggestive of contam ination. Consider recollection by clean catch. Bacteria, ur 1+(A) [facility] Mucous, ur Present(A) [facility] Culture Reflex Comment Reflex conditions for urine culture (WBC >10) not met. [facility] Urine, clean voided 05/13/2022 10:13 AM COMMERCIAL SUBCONTRACTOR 05/13/2022 10:25 AM COMMERCIAL SUBCONTRACTOR us Lynn [facility]YA LAB URINE ORDERABLES Final Re sult [address] Department [place] [address] * (ABNORMAL) Urinalysis reflex to microscopic and culture Urine, clean voided (05/13/2022 10:13 AM COMMERCIAL SUBCONTRACTOR) Color, ur Yellow Yellow [facility] Clarity, ur Cloudy(A) Clear [facility] Specific gravity, ur 1.011 1.003 - 1.030 [facility] pH, urine 6.0 [facility] Protein, ur ql 1+(A) Negative [facility] Glucose, ur ql Negative Negative [facility] Ketones, ur Negative Negative [facility] Bilirubin, ur Negative Negative [facility] Blood, ur Negative Negative [facility] Urobilinogen, ur <2.0 <2.0 mg/dL [facility] Nitrite, ur Negative Negative [facility] Leukocyte esterase, ur Negative Negative [facility] UA reflex comment Reflex to microscopic UA will be performed. [facility] Urine, clean voided 05/13/2022 10:13 AM COMMERCIAL SUBCONTRACTOR 05/13/2022 10:25 AM COMMERCIAL SUBCONTRACTOR Narrative [facility] - 05/13/2022 10:32 AM COMMERCIAL SUBCONTRACTOR ?? Urine pH is affected by diet, medications, systemic acid-base disturbances, and renal tubular function. ??pH may affect urinary stone formation. ??For example, urine pH below 6.0 may help reduce the tendency for calcium phosphate stones and pH greater than 6.0 may reduce the tendency for uric acid stone formation. Source: [facility] [employer]. Last revised 04-03-2017 us Lynn LOYA LAB MICROBIOLOGY - GENERAL OR DERABLES Final Result MICHELA [address] [facility] Department [place] [address] documented in this encounter Visit Diagnoses Diagnosis Constipation, unspecified constipation type- Primary Renal insufficiency Unspecified disorder of kidney and ureter documented in this encounter Administered Medications Inactive Administered Medications - up to 3 most recent administrations Medication Order MAR Action Action Date Dose Rate Site sodium chloride 0.9% bolus 1,000 mL 1,000 mL, intravenous, at 1,000 mL/hr, Administer over 1 Hours, Once, On Fri05/13/22 at 1507, For 1 dose New Bag 05/13/2022 3:21 PM COMMERCIAL SUBCONTRACTOR 1,000 mL 100 0 mL/hr documented in this encounter Active and Recently Administered Medications Times are shown in COMMERCIAL SUBCONTRACTOR. Scheduled Medication Order 05/11/2022 05/12/2022 05/13/2022 sodium chloride 0.9% bolus 1,000 mL (COMPLETED) 1,000 mL, intravenous, at 1,000 mL/hr, Administer over 1 Hours, Once, On Fri05/13/22 at 1507, For 1 dose 1521 (New Bag - Prov ider: Rachel Bliss RN)[id number] (Stopped - Provider: Rachel Bliss RN) documented in this encounter Orders IV Count Last Ordered Date First Orde red Date SALINE LOCK IV 1 05/13/2022 documented in this encounter Care Teams Paving Block Cutter Relationship Specialty Start Date End Date Amina Mccray NP PCP - General Nurse Practitioner 10/04/21 06/11/22 documented as of this encounter
--- OUTSIDE RECORDS SUMMARY | 2024-03-23 01:51 | XMS_ITS | Encounter Summary ---
Author Organization [facility] Address [address] [place] [address] Care Team Providers Care Business Editor Name Role Phone Fidencio French MD Primary Care Provider [phone] Encounter Details Date Type Department Care Team (Late st Contact Info) Description 11/27/2022 Telephone [facility] Orthopedics and Sports Medicine [address] [facility] [address] [place] [address] [place] [address] [place] [address] [address] [place], [place] [id number] Social History Tobacco Use Types Packs/Day Years Used Date Smoking Tobacco: Never Passive Smoke Exposure: Past Smokeless Tobacco: Never Alcohol Use Standard Drinks/Week Comments No 0 (1 standard drink = 0.6 oz pur e alcohol) Comments Unknown Sex and Gender Information Value Date Recorded Sex Assigned at Not on file Legal Sex Female 5:35 PM EPOXY SPECIALIST Gender Identity Not on file Sexual Orientation Not on file documented as of this encounter Miscellaneous Notes * Telephone Encounter - Liz Echols - 11/28/2022 2:49 PM CDT error documented in this encounter Plan of Treatment Not on file documented as of this encounter Visit Diagnoses Not on filedocumented in this encounter Care Teams Business Editor Relationship Specialty Start Date End Date Fidencio French MD [address] [place] [place] [id number] PCP - General Internal Medicine 06/12/22 documented as of this encounter
--- OUTSIDE RECORDS SUMMARY | 2024-03-23 01:51 | XMS_ITS | Encounter Summary ---
Author Organization [facility] Address [address] [address] Care Team Providers Care Talent Analyst Name Role Phone Amina Mccray Emily DAVI Primary Care Provider [phone] Reason for Referral * Procedure (Routine) - Closed Specialty Diagnoses / Procedures Referred By Kirt t Referred To Contact Diagnoses Acute medial meniscus tear of right knee, initial encounter Procedures Large Joint (Hip, Knee, Shoulder) Injection: R knee Kamar Gandara DO [address] [place] [address] [place] [address] Phone: tel: fax: [facility] Referral ID Status Reason Start Date Expiration Date Visits Re quested Visits Authorized [id number] Closed 04/04/2022 05/04/2023 1 1 NEER FISHING VESSEL * Diagnostic Imaging (Routine) - Closed Specialty Diagnoses / Procedures Referred By Conttyron carvalho Referred To Contact Diagnoses Acute medial meniscus tear of right knee, initial encounter Procedures XR Knee Right 3 Views Kamar Gandara DO [address] [place] [address] [place] [address] Phone: tel: fax: [address] [phone] Referral ID Status Reason Start Date Expiration Date Visits Re quested Visits Authorized [id number] Closed 04/04/2022 05/04/2023 1 1 NEER FISHING VESSEL * Diagnostic Imaging (Routine) - Closed Specialty Diagnoses / Procedures Referred By Kirt carvalho Referred To Contact Diagnoses Acute medial meniscus tear of right knee, initial encounter Procedures XR Femur Right 2 or More Views aKmar Gandara DO [address] [place] [address] Phone: tel: fax: [facility] [address] [place] [address] Referral ID Status Reason Start Date Expiration Date Visits Re quested Visits Authorized [id number] Closed 04/04/2022 05/04/2023 1 1 NEER FISHING VESSEL Reason for Visit * Reason Comments Pain Encounter Details Date Type Department Care Team (Latest Contact Info) Description 04/04/2022 11:15 AM ENGINEER FISHING VESSEL Clinical Support [facility] Orthopedics and Sports Medicine [address] [place] [phone] Kamar Gandara DO [address] [place] [address] Acute medial meniscus tear of right knee, initial encounter (Primary Dx) Social History Tobacco Use Types Packs/Day Years Used Date Smoking Tobacco: Never Smokeless Tobacco: Never Alcohol Use Standard Drinks/Week Comments No 0 (1 standard drink = 0.6 oz pur e alcohol) Comments Unknown Sex and Gender Information Value Date Recorded Sex Assigned at Not on file Legal Sex Female 5:35 PM ENGINEER FISHING VESSEL Gender Identity Not on file Sexual Orientation Not on file documented as of this encounter Progress Notes * Kamar Gandara DO - 04/04/2022 11:15 AM CSTAssociated Order(s): Large Joint (Hip, Knee, Shoulder) Injection: R knee Post-Procedure Diagnose(s): Acute medial meniscus tear of right knee, initial encounter Images from the original note were not included. FOLLOW UP PATIENT VISIT Subjective CHIEF COMPLAINT She had concerns including Pain of the Right Knee. HISTORY OF PRESENT ILLINESS Patient returns for re-evaluation of her right knee. 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 She was scheduled for a knee arthroscopy but is wishing to postpone this until later this year. She is here today to try vi scosupplementation Objective PHYSICAL EXAM There were no vitals taken for this visit. Right knee unchanged. Increased swelling of the right thigh. No erythema or signs of infection REVIEW OF X-RAYS/STUDIES/LABS New x-rays taken today weight-bearing films of the right knee in the right femur ordered and interpreted. No acute osseous abnormality. Mild joint space narrowing in the medial compartment Diagnoses and all orders for this visit: Acute medial meniscus tear of right knee, initial encounter (Primary) - XR Femur Right 2 or More Views; Future - XR Knee Right 3 Views; Future Plan: I discussed further treatment with the patient today. Reviewed surgical and nonsurgical options. She is wanting to proceed with arthroscopy later this year. She would like to try injection today. Right knee was injected with viscosupplementation and she tolerated well. Follow up with me in 3 months Large Joint (Hip, Knee, Shoulder) Injection: R knee Performed by: Kamar Gandara DO Authorized by: Kamar Gandara DO Large Joint Injection/Aspiration: Verbal consent obtained: Yes Procedure Details: Location: Knee Site: R knee Prep: patient was prepped using a clean technique Medications: 16 mg hylan g-f 20 16 mg/2 mL Patient tolerance: Patient tolerated the procedure well with no immediate complications Kamar Gandara DO NEER FISHING VESSEL documented in this encounter Plan of Treatment Not on file documented as of this encounter Procedures Procedure Name Priority Date/Time Associated Diagnosis Comments HI ARTHROCENTESIS ASPIR&/INJ MAJOR JT/BURSA W/O US Routine 04/04/2022 11:15 AM ENGINEER FISHING VESSEL Acute medial meniscus tear of right knee, initial encounter documented in this encounter Results * XR Knee Right 3 Views (04/04/2022 11:45 AM ENGINEER FISHING VESSEL) Anatomical Region Laterality Modality Lower Extremities, Knee Right Computed Radiography 04/05/2022 9:13 AM ENGINEER FISHING VESSEL Narrative 04/05/2022 9:14 AM ENGINEER FISHING VESSEL EXAM DESCRIPTION: XR FEMUR RIGHT 2 OR MORE VIEWS; XR KNEE RIGHT 3 VIEWS REASON FOR STUDY: Right thigh and knee pain. Pain since December 2021 after having 2 falls ? FINDINGS: Three views right knee and two views right femur submitted with comparison 03/29/2022, 03/02/2022. Right femur: There are no fractures. ??The femoral head is well seated. ??There is mild right hip osteoarthritis. ??Alignment is normal. Right knee: There are no fractures. ??Alignment is normal. ??There is mild medial compartment right knee osteoarthritis. ??Small knee effusion is present. ?? Extensor mechanism enthesophyte is present. IMPRESSION: Mild right hip osteoarthritis. Mild medial compartment right knee osteoarthritis with a small knee effusion. THIS IS AN ELECTRONICALLY VERIFIED FINAL REPORT 04/05/2022 9:14 AM - Electronically signed by ??Kwesi Kessler M.D. MF: [email or web address] D: ??04/05/2022 9:14 AM T: ??04/05/2022 9:14 AM Report ID: [id number] Reading Location: ??[id number] Procedure Note Kwesi Kessler MD - 04/05/2022 EXAM DESCRIPTION: XR FEMUR RIGHT 2 OR MORE VIEWS; XR KNEE RIGHT 3 VIEWS REASON FOR STUDY: Right thigh and knee pain. Pain since December 2021 after having 2 falls FINDINGS: Three views right knee and two views right femur submitted with comparison 03/29/2022, 03/02/2022. Right femur: There are no fractures. The femoral head is well seated. There is mildright hip osteoarthritis. Alignment is normal. Right knee: There are no fractures. Alignment is normal. There is mild medial compartment right knee osteoarthritis. Small knee effusion is present. Extensor mechanism enthesophyte is present. IMPRESSION: Mild right hip osteoarthritis. Mild medial compartment right knee osteoarthritis with a small kneeeffusion. THIS IS AN ELECTRONICALLY VERIFIED FINAL REPORT 04/05/2022 9:14 AM - Electronically signed by Kwesi Kessler M.D. MF: [email or web address] Report ID: [id number] Reading Location: [id number] us Kamar Gandara DO IMG XR PROCEDURES Final Result * XR Femur Right 2 or More Views (04/04/2022 11:45 AM ENGINEER FISHING VESSEL) Anatomical Region Laterality Modality Lower Extremities, Thigh, Femur Right Computed Radiography 04/05/2022 9:13 AM ENGINEER FISHING VESSEL Narrative 04/05/2022 9:14 AM ENGINEER FISHING VESSEL EXAM DESCRIPTION: XR FEMUR RIGHT 2 OR MORE VIEWS; XR KNEE RIGHT 3 VIEWS REASON FOR STUDY: Right thigh and knee pain. Pain since December 2021 after having 2 falls ? FINDINGS: Three views right knee and two views right femur submitted with comparison 03/29/2022, 03/02/2022. Right femur: There are no fractures. ??The femoral head is well seated. ??There is mild right hip osteoarthritis. ??Alignment is normal. Right knee: There are no fractures. ??Alignment is normal. ??There is mild medial compartment right knee osteoarthritis. ??Small knee effusion is present. ?? Extensor mechanism enthesophyte is present. IMPRESSION: Mild right hip osteoarthritis. Mild medial compartment right knee osteoarthritis with a small knee effusion. THIS IS AN ELECTRONICALLY VERIFIED FINAL REPORT 04/05/2022 9:14 AM - Electronically signed by ??Kwesi Kessler M.D. MF: [email or web address] D: ??04/05/2022 9:14 AM T: ??04/05/2022 9:14 AM Report ID: [id number] Reading Location: ??[id number] Procedure Note Kwesi Kessler MD - 04/05/2022 EXAM DESCRIPTION: XR FEMUR RIGHT 2 OR MORE VIEWS; XR KNEE RIGHT 3 VIEWS REASON FOR STUDY: Right thigh and knee pain. Pain since December 2021 after having 2 falls FINDINGS: Three views right knee and two views right femur submitted with comparison 03/29/2022, 03/02/2022. Right femur: There are no fractures. The femoral head is well seated. There is mildright hip osteoarthritis. Alignment is normal. Right knee: There are no fractures. Alignment is normal. There is mild medial compartment right knee osteoarthritis. Small knee effusion is present. Extensor mechanism enthesophyte is present. IMPRESSION: Mild right hip osteoarthritis. Mild medial compartment right knee osteoarthritis with a small kneeeffusion. THIS IS AN ELECTRONICALLY VERIFIED FINAL REPORT 04/05/2022 9:14 AM - Electronically signed by Kwesi Kessler M.D. MF: [email or web address] Report ID: [id number] Reading Location: [place] [address] Kamar Gandara DO IMG XR PROCEDURES Final Result * HI ARTHROCENTESIS ASPIR&/INJ MAJOR JT/BURSA W/O US (04/04/2022 11:15 AM ENGINEER FISHING VESSEL) Narrative Kamar Gandara DO - 04/04/2022 11:15 AM ENGINEER FISHING VESSEL Kamar Gandara DO ? 04/04/2022 ??3:49 PM Large Joint (Hip, Knee, Shoulder) Injection: R knee Performed by: Kamar Gandara DO Authorized by: Kamar Gandara DO Large Joint Injection/Aspiration: ??Verbal consent obtained: Yes ?? Procedure Details: ??Location: ??Knee ??Site: ??R knee ??Prep: patient was prepped using a clean technique ?Medications: ??16 mg hylan g-f 20 16 mg/2 mL ??Patient tolerance: ??Patient tolerated the procedure well with no immediate complications Kamar Gandara DO IN CLINIC/BEDSIDE ORDERABLES F inal Result documented in this encounter Visit Diagnoses Diagnosis Acute medial meniscus tear of right knee, initial encounter- Primary Acute medial meniscus tear of right knee, initial encounter documented in this encounter Administered Medications Inactive Administered Medications - up to 3 most recent administrations Medication Order MAR Action Action Date Dose Rate Site hylan g-f 20 (SYNVISC) 16 mg/2 mL injection 16 mg 16 mg, intra-articular, One-Time Injection, Starting on Lorie 04/04/22 at 1549, For 1 dose, Indications: Osteoarthritis of the KneeIndications:Osteoarthritis of the Knee Given 04/04/2022 3:49 PM ENGINEER FISHING VESSEL 16 mg Right Knee documented in this encounter Care Teams Talent Analyst Relationship Specialty Start Date End Date Amina Mccray NP PCP - General Nurse Practitioner 10/04/21 06/11/22 documented as of this encounter
--- OUTSIDE RECORDS SUMMARY | 2024-03-23 01:51 | XMS_ITS | Encounter Summary ---
Author Organization [facility] Address [address] [place] [address] Care Team Providers Care Digital Court Reporter Name Role Phone Amina Mccray NP Primary Care Provider [phone] Reason for Referral * Diagnostic Imaging (Routine) - Closed Specialty Diagnoses / Procedures Referred By Kirt carvalho Referred To Contact Diagnoses Right knee pain, unspecified chronicity Procedures XR Hip Right W Pelvis 2 or 3 Views Amina Mccray NP [facility] [place] [address] Phone: tel: fax: [address] [phone] Referral ID Status Reason Start Date Expiration Date Visits Re quested Visits Authorized [id number] Closed 03/29/2022 04/28/2023 1 1 RAME DESIGN ENGINEER Reason for Visit * Diagnostic Imaging (Routine) - Closed Specialty Diagnoses / Procedures Referred By Kirt carvalho Referred To Contact Diagnoses Right knee pain, unspecified chronicity Procedures XR Hip Right W Pelvis 2 or 3 Views Amina Mccray NP [facility] [place] [address] Phone: tel: fax: [address] [phone] Referral ID Status Reason Start Date Expiration Date Visits Re quested Visits Authorized [id number] Closed 03/29/2022 04/28/2023 1 1 Encounter Details Date Type Department Care Team (Latest Contact Info) Description 03/29/2022 2:35 PM AIRFRAME DESIGN ENGINEER - 03/29/2022 11:59 PM AIRFRAME DESIGN ENGINEER Hospital Encounter [facility] Diagnostic Imaging [address] [place] [id number] Right knee pain, unspecified chronicity Discharge Disposition: Discharge to home or self care Social History Tobacco Use Types Packs/Day Years Used Date Smoking Tobacco: Never Smokeless Tobacco: Never Alcohol Use Standard Drinks/Week Comments No 0 (1 standard drink = 0.6 oz pur e alcohol) Comments Unknown Sex and Gender Information Value Date Recorded Sex Assigned at Not on file Legal Sex Female 5:35 PM AIRFRAME DESIGN ENGINEER Gender Identity Not on file Sexual Orientation Not on file documented as of this encounter Medications at Time of Discharge amLODIPine (NORVASC) 10 mg tablet Take 1 tablet (10 mg total) by mouth daily atorvastatin (LIPITOR) 20 mg tablet Take 1 tablet (20 mg total) by mouth daily 10/20/2021 losartan (COZAAR) 100 mg tablet Take 1 tablet (100 mg total) by mouth daily 3 02/23/2018 ergocalciferol (VITAMIN D) 50,000 unit capsule TK 1 C PO ONCE WEEKLY WITH A LARGE MEAL 1 02/25/2018 3 hydroCHLOROthiaz adrianna (HYDRODIURIL) 12.5 mg tablet Take 1 tablet (12.5 mg total) by mouth daily 12/21/2019 4 Linzess 72 mcg capsule TAKE 1 CAPSULE BY MOUTH ONCE DAILY ON AN EMPTY STOMACH AT LEAST 30 MINUTES BEFORE 1ST MEAL OF THE DAY 11/23/2021 3 metFORMIN (GLUCOPHAGE) 500 mg tablet TK 1 T PO QHS 2 03/02/2018 3 sAXagliptin (ONGLYZA) 2.5 mg tablet Take 2.5 mg by mouth daily 10/17/2018 3 Trulicity 0.75 mg/0.5 mL pen injector INJECT 0.5 MILLILITER (0.75MG) BY SUBCUTANEOUS ROUTE EVERY 7 DAYS 12/21/2021 3 documented as of this encounter Discharge Disposition Disposition Code Departure Means Destination Discharge to home or self care documented in this encounter Plan of Treatment Not on file documented as of this encounter Procedures Procedure Name Priority Date/Time Associated Diagnosis Comments XR HIP RIGHT W PELVIS 2 OR 3 VIEWS Schedule Routine, Read Routine (OP Routine) 03/29/2022 2:55 PM AIRFRAME DESIGN ENGINEER Right knee pain, unspecified chronicity documented in this encounter Results * XR Hip Right W Pelvis 2 or 3 Views (03/29/2022 2:55 PM AIRFRAME DESIGN ENGINEER) Anatomical Region Laterality Modality Lower Extremities, Hip, Pelvis Right C omputed Radiography 03/31/2022 4:05 PM AIRFRAME DESIGN ENGINEER Narrative 03/31/2022 4:07 PM AIRFRAME DESIGN ENGINEER EXAM DESCRIPTION: XR HIP RIGHT 2 OR 3 VIEWS W PELVIS REASON FOR STUDY: Right knee pain ?? Pt sts: fall in December 2021 with right knee pain, diagnosed with torn meniscus in right knee onset 1 week ago, right hip swelling onset December 2021, right hip pain onset December 2021 ? TECHNIQUE: Three views submitted without comparison. FINDINGS: The femoral heads are well seated. ??There is mild bilateral hip osteoarthritis. ??Pubic symphysis osteoarthritis is present. 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 IMPRESSION: Mild right hip osteoarthritis. 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 THIS IS AN ELECTRONICALLY VERIFIED FINAL REPORT 03/31/2022 4:07 PM - Electronically signed by ??Kwesi Kessler M.D. D: ??03/31/2022 4:07 PM T: Report ID: [id number] Reading Location: ??[id number] Procedure Note Kwesi Kessler MD - 03/31/2022 EXAM DESCRIPTION: XR HIP RIGHT 2 OR 3 VIEWS W PELVIS REASON FOR STUDY: Right knee pain Pt sts: fall in December 2021 with right knee pain, diagnosed with torn meniscus in right knee onset 1 week ago, right hip swelling onset December 2021, right hip pain onset December 2021 TECHNIQUE: Three views submitted without comparison. FINDINGS: The femoral heads are well seated. There is mild bilateral hip osteoarthritis. Pubic symphysis osteoarthritis is present. Inferiorlumbar degenerative disc disease with facet osteoarthritis is noted. IMPRESSION: Mild right hip osteoarthritis. 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 THIS IS AN ELECTRONICALLY VERIFIED FINAL REPORT 03/31/2022 4:07 PM - Electronically signed by Kwesi Kessler M.D. T: Report ID: [id number] Reading Location: [place] [address] us Amina Mccray MODULAR HOME CREW MEMBER IMG XR PROCEDURES Final R esult documented in this encounter Visit Diagnoses Diagnosis Right knee pain, unspecified chronicity documented in this encounter Care Teams Digital Court Reporter Relationship Specialty Start Date End Date Amina Mccray NP PCP - General Nurse Practitioner 10/04/21 06/11/22 documented as of this encounter
--- OUTSIDE RECORDS SUMMARY | 2024-03-23 01:51 | XMS_ITS | Encounter Summary ---
Author Organization [facility] Healthcare Address [address] [place] [address] Care Team Providers Care Net Washer Name Role Phone Fidencio French MD Primary Care Provider [phone] Reason for Visit * Reason Comments OT Initial Eval * Consultation (Routine) - Closed Specialty Diagnoses / Procedures Referred By Kirt carvalho Referred To Contact Occupational Therapy Diagnoses Lymphedema Acute medial meniscus tear of right knee, initial encounter Kamar Gandara DO [address] [facility] [address] [address] Phone: tel: fax: External Order Referral ID Status Reason Start Date Expiration Date V isits Requested Visits Authorized [id number] Closed Specialty Services Required 09/12/2022 10/12/2023 24 24 Encounter Details Date Type Department Care Team (Late st Contact Info) Description 09/25/2022 9:00 AM CDT Therapy [facility] Occupational Therapy [address] [place] [id number] Venessa Haksins, OT Lymphedema; Acute medial meniscus tear of right knee, initial encounter Social History Tobacco Use Types Packs/Day Years Used Date Smoking Tobacco: Never Passive Smoke Exposure: Past Smokeless Tobacco: Never Alcohol Use Standard Drinks/Week Comments No 0 (1 standard drink = 0.6 oz pur e alcohol) Comments Unknown Sex and Gender Information Value Date Recorded Sex Assigned at Not on file Legal Sex Female 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 OT Initial Evaluation 09/25/2022 Lindsay Pedersen 1955 67 y.o. female Kamar Gandara, [address] [facility] [place] [address] ICD-9-CM ICD-10-CM 1. Lymphedema 457.1 I89.0 Ambulatory referral order to Occupational Therapy - 2. Acute medial meniscus tear of right knee, initial encounter 836.0 S83.241A Ambulatory referral order to Occupational Therapy - Past Medical History: Diagnosis Date Benign neoplasm of breast Blood in urine Hypertension Proteinuria Start Time: 0900 End Time: 1000 Subjective: Patient presents to Outpatient Occupational Therapy with R leg swelling. Patient is referred by Dr. Kamar Gandara (orthopedic surgery). Patient fell August 2021. Patient was referred to Physical Therapy for R knee pain and strengthening. Patient did not think PT helped improve R leg. Patient was still having difficulty with R leg. Patient fell again in the bathtub in December 2021. Patient started seeing swelling in R leg after this fall. Patient had MRI of R knee on 03/02/23 that showed questionable nondisplaced tear of the right medial meniscus posterior horn and severe medial compartment chondrosis per MRI report. Patient was seen by Dr. Gandara on 03/21/23. Since patient had not responded well to conservative treatment, Dr. Gandara discussed surgical options which consisted of arthroscopy with partial medial meniscectomy. Dr. Gandara also mentioned injections. In March patient decided to hold off on surgery and try injections. Patient's R knee was injected with visco supplementation on 04/04/22, 04/11/22 and 04/18/22. Patient was seen by Dr. Gandara on 07/17/22 for injection follow up. Patient's R knee pain had resolved after injections. Patient still had R leg swelling. Patient spoke to MD about surgery and if it would fix the swelling in her R leg. Patient said Dr. Gandara states swelling in R leg is a separate issue and surgery would not help the swelling. Patient spoke to a friend at [employer] who completed Complete Decongestive Therapy successfully. Patientgot our info and had Dr. Gandara enter an order for lymphedema. Patient was previously treated forR leg swelling at [facility]. Patient said they did massage, ordered compression capris and ordered compression pump from [employer]. Patient has compression pump which she was instructed to use 2x/daily. Patient has been wearing shapewear leggings from [employer] to help with swelling. Patient plans to schedule surgery to repair R knee meniscus tear later this year. Patient and MD want to decrease R leg swelling prior to surgery. History of Present Condition Date of onset: December 2021 Date of surgery: none Description of Onset: sudden after fall Etiology of swelling: injury to R knee Duration of swelling: about 9 months Effect of elevation: elevates legs nightly on pillows but reports very minimal receding after elevation Cancer Treatment: none Compression history: leggings from [employer] Wounds: none History of DVT: none History of cellulitis: none History of CHF: none History of CVI: none History of CVA: none History of Diabetes: yes, controlled Diuretics: yes, hydrochlorothiazide, 12.5 mg History of Renal Dysfunction: going to see clean energy policy analyst this week for initial visit. Patient has not seen clean energy policy analyst prior to this. History of hyper or hypothyroidism: none taking medicine: none Infection history: none Therapy History: Patient reports being seen for R leg lymphedema at [facility]. Contraindications: none Precautions: DM Diagnostic Tests: 08/22/22 xray of R knee was negative for fracture 04/08/21 Doppler negative 03/02/23 MRI: IMPRESSION: 1. Questionable nondisplaced tear of the right medial meniscus posterior horn. 2. Severe medial compartment chondrosis. Concurrent Treatment: PT Current Symptoms: R leg swelling Pain Current pain ratin/10 Patient reports heaviness in R LE Uses biofreeze on both knees Function Current Functional Deficits: going up and down steps to do laundry, difficulty with heaviness of R leg, carrying groceries into the house Prior Level of Function: independent with activities of daily living including household and community activities, driving Work/School: retired Lifestyle: Social/Leisure Activity: active with buddhist and other seniors/friends Hobbies: going on outings with other seniors, buddhist activities Equipment used: uses no device Lives in (home layout): 3 steps to enter with one sided banister Lives with: alone Hand Dominance: right Neighbor and daughter assist as needed Patient/Caregiver Goal: want to get the swelling down in R leg and schedule surgery for menisucs tear and be able to go up and down steps easier to do laundry . Abuse and Neglect: No concerns noted by patient/family or therapist. Objective: Outcome Measures: Lymphedema Quality of Life Tool 52% impaired, with quality of life score of 6/10 (10= excellent) Cognition: A&O x 4 Observation/Palpation/Skin Condition: Ulcerations none Contractures none Dryness none Skin Temperature normal Hyperpigmentation/hemosiderin none Hyperkeratosis none Papillomas none Fibrosis Mild firmness on R leg Lymphorrhea none Edema yes Pitting Mild to no pitting in R leg Peau d'Nathrop mild Fungal Infection none Infections none Skin Color Changes Varicose veins normal none Axillary Cording na Other Lesions none Stemmer Sign negative Lower Extremity Limb Measurements (measured straight up from floor): Right Left Difference MTP 26 cm 26 cm 0 Heel 33 cm 29.8 cm 3.2 cm Ankle 25.6 cm 25 cm .6 cm 10 cm 23.5 cm 23 cm .5 cm 20 cm 33 cm 30 cm 3 cm 30 cm 41 cm 37.8 cm 3.2 cm 40 cm 42 cm 36.8 cm 5.2 cm 50 cm 65 cm 56.5 cm 8.5 cm 60 cm 73.5 cm 77 cm L LE > R LE 70 cm 82 cm 81 cm 1 cm Around knee cap 45.3 cm 39 cm 6.3 cm nt nt nt nt Limb Volumes: R LE 312.0 ml; L LE 297.4 ml; R LE 14.6 ml > L LE Sensation: normal Treatment Provided: Subjective information obtained and measurements taken. Discussed plan with patient. CDT protocols and a lymphedema start of care packet have been issued. Reviewed lymphedema start of care packet. Extensive education on the lymphatic system, infection s/s, CDT phase 1 vs phase 2, and bandaging vs velcro compression Assessment: Therapy Impression: This patient presents with Stage I lymphedema of mild severity. The etiology ofthe lymphedema is likely R knee injury Impairments: R leg swelling with heaviness Activity limitations/participation restrictions: none Assistance/modification of tasks to complete evaluation (none/minimal- moderate/significant): none Barriers to therapy: Patient is busy with other appointment s Barriers to learning: none Prognosis/Rehab Potential: This patient will benefit from Complete Decongestive Therapy to decongest R leg to prevent complications such as wounds and infections and improve quality of life. STG to be met by 10/16/22 1. Patient verbalize and demonstrate understanding of lymphedema signs and symptoms 2. Patient verbalize and demonstrate understanding of lymphedema prevention techniques 3. Patient to tolerate compression bandaging schedule 4. Patient to demonstrate reduction of 5 cm from 50 cm measurement on R leg LTG to be met by 11/06/22 1. Patient to be independent with home program including: skin care, self- massage/use of advanced pneumatic pump, self-bandaging, and home exercise program 2. Successful transition into compression garment (R thigh high non custom circular knit garment) 3. Patient will be independent with donning/doffing compression garments 4. Patient to demonstrate maximum reduction of 10 ml from R LE Plan: Occupational Therapy Interventions: ther ex/proc. (77674)- exercise/strengthening/stretching; ther act (09088); manual therapy including MLD (02878); self care/home management training-self bandaging/self massage (09632); orthotics management and training/compression garment measurements (28516); compression pump assessment, home exercises program instruction, skin and nail care/risk of infectioneducation/wound care needs, family training, modalities as appropriate Next visit consider initiating: compression bandaging for R leg to groin, MLD for unilateral LE swelling utilizing AII and IA anastomosis, LE decongestive exercises. Recommendation in preparation for discharge: R thigh high non custom/circular knit compression garment Frequency/Duration 2-3 times per week for 6 weeks (patient wants to schedule 1 week at a time) Certification Dates: From 09/25/22 To 11/06/22 Venessa Haskins OT documented in this encounter Plan of Treatment Not on file documented as of this encounter Visit Diagnoses Diagnosis Lymphedema Other noninfectious lymphedema Acute medial meniscus tear of right knee, initial encounter documented in this encounter Orders Outpatient Referral Count Last Ordered Date Fir st Ordered Date AMB REFERRAL ORDER TO OCCUPATIONAL THERAPY 1 09/25/2022 documented in this encounter Care Teams Net Washer Relationship Specialty Start Date End Date Fidencio French MD [address] [place] [address] PCP - General Internal Medicine 06/12/22 documented as of this encounter
--- OUTSIDE RECORDS SUMMARY | 2024-03-23 01:51 | XMS_ITS | Encounter Summary ---
Author Organization [facility] Healthcare Address [address] [place] [address] Care Team Providers Care Code And Test Clerk Name Role Phone Fidencio French MD Primary Care Provider [phone] Reason for Visit * Reason Comments OT Treatment * Consultation (Routine) - Closed Specialty Diagnoses / Procedures Referred By Kirt carvalho Referred To Contact Occupational Therapy Diagnoses Lymphedema Acute medial meniscus tear of right knee, initial encounter Kamar Gandara DO [address] [facility] [address] [address] Phone: tel: fax: External Order Referral ID Status Reason Start Date Expiration Date V isits Requested Visits Authorized [id number] Closed Specialty Services Required 09/12/2022 10/12/2023 24 24 Encounter Details Date Type Department Care Team (Late st Contact Info) Description 10/11/2022 9:15 AM CDT Therapy [facility] Occupational Therapy [address] [place] [id number] Ivet Estrada COTA Lymphedema (Primary Dx) Social History Tobacco Use Types Packs/Day Years Used Date Smoking Tobacco: Never Passive Smoke Exposure: Past Smokeless Tobacco: Never Alcohol Use Standard Drinks/Week Comments No 0 (1 standard drink = 0.6 oz pur e alcohol) Comments Unknown Sex and Gender Information Value Date Recorded Sex Assigned at Not on file 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 Patient brought bandages into therapy.She is leaving to go out of town to [place] this Friday and will not be returning until the following Friday. She stated that she is going to wear her compression leggings/capris while she travels. She also plans to take her bandages and try self bandaging the lower leg. Pain: 0 Objective: *No objective measurements taken this date R LE cirmcumferential measurements (measured straight up from floor in cm) 09/25 10/02 10/07 10/09 MTP 26 21.4 20.7 nt heel 33 30.5 28.5 nt ankle 25.6 24.2 24.5 nt 10 cm 23.5 23 25.5 nt 20 cm 33 30 34.6 nt 30 cm 41 40.3 40 nt 40 cm 42 38 50.8 41.5 50 cm 65 57 51.9 60 cm 73.5 71 68 70 cm 82 82.7 nt Around knee cap 45.3 48 43 43.7 L LE circumferential measurements (measured straight up [...] knee cap 39 nt nt Treatment Provided: Skin care- patient showered this morning and applied lotion prior to therapy appointment, however, she had some itching on the top of her foot and therapist applied Eucerin to top of her R-foot. MLD- Therapist completes MLD sequence for unilateral LE swelling (R LE) utilizing IA and AII anastomosis. Sequence completed through R ankle while patient supine on treatment table. Deep breathing completed. Compression- Therapist bandages R LE slightly over the knee using stockinette, artiflex padding, silveira foam piece at anterior ankle crease and short stretch bandages (6 cm, 8 cm, 10 cm and 2- 12 cm). Therapist applies R thigh reduction kit. Assessment: Pt is making good progress with CDT. Patient to return for CDT to decongest R leg for wound and infection prevention. Plan:Continue per POC Patient to keep compression bandages and reduction kit on R leg at all times. Patient to remove bandages and reduction kit if she experiences pain that does not resolve with ambulation, numbness/tingling in toes, and/or shortness of breath. She will be traveling to [place] and will remove bandages Friday morning and wear compression leggings and capris, but is also going to attempt self bandagingof R-LE while she is gone. Start Time: 9:15 End Time: 9:55 YANIRA Whitman, CLT documented in this encounter Plan of Treatment Not on file documented as of this encounter Visit Diagnoses Diagnosis Lymphedema- Primary Other noninfectious lymphedema documented in this encounter Care Teams Code And Test Clerk Relationship Specialty Start Date End Date Fidencio French MD [address] [place] [id number] PCP - General Internal Medicine 06/12/22 documented as of this encounter
--- OUTSIDE RECORDS SUMMARY | 2024-03-23 01:51 | XMS_ITS | Encounter Summary ---
Author Organization [facility] Healthcare Address [address] [place] [address] Care Team Providers Care Post Office Manager Name Role Phone Fidencio French MD Primary Care Provider [phone] Reason for Referral * Diagnostic Imaging (Routine) - Closed Specialty Diagnoses / Procedures Referred By Kirt carvalho Referred To Contact Diagnoses Breast cyst, right Procedures Diagnostic Mammogram Right W Jody Engel NP Phone: tel: fax: [address] [phone] Referral ID Status Reason Start Date Expiration Date Visits Re quested Visits Authorized [id number] Closed 06/19/2022 07/19/2023 1 1 Reason for Visit * Diagnostic Imaging (Routine) - Closed Specialty Diagnoses / Procedures Referred By Kirt carvalho Referred To Contact Diagnoses Breast cyst, right Procedures Diagnostic Mammogram Right W Jody Engel NP Phone: tel: fax: [address] [phone] Referral ID Status Reason Start Date Expiration Date Visits Re quested Visits Authorized [id number] Closed 06/19/2022 07/19/2023 1 1 Encounter Details Date Type Department Care Team (Latest Contact Info) Description 06/19/2022 10:15 AM CDT - 06/19/2022 11:59 PM CDT Hospital Encounter [facility] Breast Imaging [facility] [place] [address] Breast cyst, right Discharge Disposition: Discharge to home or [...] on file 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 Gender Identity Not on file Sexual Orientation Not on file documented as of this encounter Medications at Time of Discharge Accu-Chek Guide test strips strip USE ONE STRIP TO CHECK GLUCOSE DAILY 3 Accu-Chek Softclix Lancets lancets USE TO CHECK GLUCOSE ONCE DAILY 3 amLODIPine (NORVASC) 10 mg tablet Take 1 tablet (10 mg total) by mouth daily atorvastatin (LIPITOR) 20 mg tablet Take 1 tablet (20 mg total) by mouth daily 2 losartan (COZAAR) 100 mg tablet Take 1 tablet (100 mg total) by mouth daily 3 8 bisacodyL (DULCOLAX) 10 mg suppositoryIndi cations:constip ation Insert 1 suppository (10 mg total) into the rectum daily 12 suppository 3 06/11/19 24 hydroCHLOROthia zide (HYDRODIURIL) 12.5 mg tablet Take 1 tablet (12.5 mg total) by mouth daily 0 06/11/19 24 Trulicity 1.5 mg/0.5 mL pen injector INJECT 0.5 ML SUBCUTANEOUSLY EVERY 7 DAYS 3 05/12/19 24 documented as of this encounter Discharge Disposition Disposition Code Departure Means Destination Discharge to home or self care documented in this encounter Plan of Treatment Not on file documented as of this encounter Procedures Procedure Name Priority Date/Time Associated Diagnosis Comments DIAGNOSTIC MAMMOGRAM RIGHT W PREM Schedule Routine, Read Routine (OP Routine) 06/19/2022 10:58 AM CDT Breast cyst, right documented in this encounter Results * Diagnostic Mammogram Right W Prem (06/19/2022 10:58 AM CDT) Anatomical Region Laterality Modality Breast Right Mammography 06/19/2022 11:3 8 AM CDT Impressions 06/19/2022 11:44 AM CDT Negative mammography over right lower inner area of recent lump near inframammary fold. ??Ultrasound shows a small hypoechoic area along the inframammary fold of right breast, consistent with resolved sebaceous lesion after course of antibiotics. OVERALL FINAL ASSESSMENT: BI-RADS Category 2: Benign. RECOMMENDATION: 1. Annual screening mammography is recommended. 2. Clinical follow-up is recommended. Dictated by: Janna Ledesma MD The radiology attending physician has personally reviewed this study, and had reviewed and/or edited this written report and agrees with it. Electronically signed by: MD Ale Granado 06/19/2022 11:44 AM CDT EXAMINATION: RIGHT UNILATERAL DIGITAL DIAGNOSTIC MAMMOGRAM AND DIGITAL BREAST TOMOSYNTHESIS; RIGHT BREAST SONOGRAM HISTORY: 67-year-old woman with palpable right breast lump since February. The patient completed a course of antibiotics in February with significant interval improvement of the lesion after drainage of yellow/white material. ??However, the area remains tender. COMPARISON: Mammogram from 01/09/2022 TECHNIQUE: ?? Full field digital mammographic views of the RIGHT breast were performed, including computer aided detection (CAD) and digital breast tomosynthesis (DBT). Directed ultrasound evaluation of the RIGHT breast was performed by a trained heel trimmer and by Gala . BREAST PARENCHYMAL COMPOSITION: The breasts are heterogenously dense, which may obscure small masses. MAMMOGRAM FINDINGS: There is no new suspicious abnormality in the RIGHT breast, with attention to the right lower area of residual tenderness. ?? SONOGRAM FINDINGS: There is a small, superficial, 2 mm hypoechoic area at 6:00, 8 cm from the nipple along the intramammary fold, with extension towards the subcutaneous fat, which is consistent with a resolved sebaceous lesion. ??No residual mass or cyst of concern is seen. Procedure Note Zulay Cedeño MD - 06/19/2022 EXAMINATION: RIGHT UNILATERAL DIGITAL DIAGNOSTIC MAMMOGRAM AND DIGITAL BREAST TOMOSYNTHESIS; RIGHT BREAST SONOGRAM HISTORY: 67-year-old woman with palpable right breast [...] RIGHT breast was performed by a trained heel trimmer and by Gala . BREAST PARENCHYMAL COMPOSITION: [...] is recommended. Dictated by: Janna Ledesma MD The radiology attending physician has personally reviewed this study, and had reviewed and/or edited this written report and agrees with it. Electronically signed by: Zulay Cedeño MD us Jody Durán NP IMG MAMMO PROCEDURES Fin al Result documented in this encounter Visit Diagnoses Diagnosis Breast cyst, right documented in this encounter Care Teams Post Office Manager Relationship Specialty Start Date End Date Fidencio French MD [address] [place] [address] PCP - General Internal Medicine 06/12/22 documented as of this encounter
--- OUTSIDE RECORDS SUMMARY | 2024-03-23 01:51 | XMS_ITS | Encounter Summary ---
Author Organization [facility] Address [address] [place] [address] Care Team Providers Care Post Hole Digging Machine Operator Name Role Phone Amina Mccray NP Primary Care Provider [phone] Reason for Referral * MRI/CAT/PET Scan (Routine) - Closed Specialty Diagnoses / Procedures Referred By Kirt carvalho Referred To Contact Radiology Diagnoses Pain in right leg Procedures MRI Knee Right WO Contrast Amina Mccray NP Phone: tel: fax: [address] [phone] Referral ID Status Reason Start Date Expiration Date Visits Re quested Visits Authorized [id number] Closed 02/06/2022 03/08/2023 1 1 IN WORKER Reason for Visit * MRI/CAT/PET Scan (Routine) - Closed Specialty Diagnoses / Procedures Referred By Kirt carvalho Referred To Contact Radiology Diagnoses Pain in right leg Procedures MRI Knee Right WO Contrast Amina Mccray NP Phone: tel: fax: [address] [phone] Referral ID Status Reason Start Date Expiration Date Visits Re quested Visits Authorized [id number] Closed 02/06/2022 03/08/2023 1 1 Encounter Details Date Type Department Care Team (Latest Contact Info) Description 03/02/2022 10:49 AM WARM IN WORKER - 03/02/2022 11:59 PM WARM IN WORKER Hospital Encounter [facility] Counts include 234 beds at the [facility] [place] [address] Pain in right leg Discharge Disposition: Discharge to home or self care Social History Tobacco Use Types Packs/Day Years Used Date Smoking Tobacco: Never Smokeless Tobacco: Never Alcohol Use Standard Drinks/Week Comments No 0 (1 standard drink = 0.6 oz pur e alcohol) Comments Unknown Sex and Gender Information Value Date Recorded Sex Assigned at Not on file Legal Sex Female 5:35 PM WARM IN WORKER Gender Identity Not on file Sexual [...] Procedure Name Priority Date/Time Associated Diagnosis Comments MRI KNEE RIGHT WO CONTRAST Schedule Routine, Read Routine (OP Routine) 03/02/2022 11:54 AM WARM IN WORKER Pain in right leg documented in this encounter Results * MRI Knee Right WO Contrast (03/02/2022 11:54 AM WARM IN WORKER) Anatomical Region Laterality Modality Lower Extremities Right Magnetic Reson ance 03/02/2022 4:23 PM WARM IN WORKER Impressions 03/03/2022 7:39 AM WARM IN WORKER 1. Questionable nondisplaced tear of the right medial meniscus posterior horn. 2. Severe medial compartment chondrosis. Dictated by: Chalo Cavazos MD The radiology attending physician has personally reviewed this study, and had reviewed and/or edited this written report and agrees with it. Electronically signed by: Benjamin Suarez MD Narrative 03/03/2022 7:39 AM WARM IN WORKER EXAM: 1. ??MRI KNEE RIGHT WO CONTRAST HISTORY:Right leg pain. TECHNIQUE: Multiplanar and multisequence MRI of the right knee without intravenous contrast. COMPARISON: Radiographs 08/22/2021 FINDINGS: In the medial compartment, there is increased intrasubstance T2 hyperintense signal within the medial meniscus posterior horn with equivocal extension to the articular surface. No displaced meniscal flap. There is a partial-thickness chondrosis in the medial femorotibial compartment with a 16 x 4 mm area of near complete cartilage loss in the central femoral condyle. No subchondral marrow edema. In the lateral compartment, the meniscus is normal. Lateral tibiofemoral articular cartilage is preserved. In the patellofemoral compartment, the articular cartilage is preserved. Cruciate ligaments are intact. Extensor mechanism is normal. Collateral ligaments are intact. No acute fracture identified. ??Bone marrow signal is normal. Moderate joint effusion is present. Mild pre-patellar bursitis. Minute partially ruptured popliteal cyst. Procedure Note Nikki Suarez MD - 03/03/2022 EXAM: 1. MRI KNEE RIGHT WO CONTRAST HISTORY:Right leg pain. TECHNIQUE: Multiplanar and multisequence MRI of the right knee without intravenous contrast. COMPARISON: Radiographs 08/22/2021 FINDINGS: In the medial compartment, there is increased intrasubstance T2 hyperintense signal within the medial meniscus posterior horn with equivocal extension to the articular surface. No displaced meniscal flap. There is a partial-thickness chondrosis in the medial femorotibial compartment with a 16 x 4 mm area of near complete cartilage loss in the central femoral condyle. No subchondral marrow edema. In the lateral compartment, the meniscus is normal. Lateral tibiofemoral articular cartilage is preserved. In the patellofemoral compartment, the articular cartilage is preserved. Cruciate ligaments are intact. Extensor mechanism is normal. Collateral ligaments are intact. No acute fracture identified. Bone marrow signal is normal. Moderate joint effusion is present. Mild pre-patellar bursitis. Minute partially ruptured popliteal cyst. IMPRESSION: 1. Questionable nondisplaced tear of the right medial meniscus posterior horn. 2. Severe medial compartment chondrosis. Dictated by: Chalo Cavazos MD The radiology attending physician has personally reviewed this study, and had reviewed and/or edited this written report and agrees with it. Electronically signed by: Benjamin Suarez MD Amina Mccray NP IMG MRI PROCEDURES Final Result documented in this encounter Visit Diagnoses Diagnosis Pain in right leg documented in this encounter Care Teams Post Hole Digging Machine Operator Relationship Specialty Start Date End Date Amina Mccray NP PCP - General Nurse Practitioner 10/04/21 06/11/22 documented as of this encounter
--- OUTSIDE RECORDS SUMMARY | 2024-03-23 01:51 | XMS_ITS | Encounter Summary ---
Author Organization [facility] Address [address] [place] [address] Care Team Providers Care Corporate Administrative Assistant Name Role Phone Fidencio French MD Primary Care Provider [phone] Reason for Visit * Reason Comments OT Treatment * Consultation (Routine) - Closed Specialty Diagnoses / Procedures Referred By Kirt carvalho Referred To Contact Occupational Therapy Diagnoses Lymphedema Acute medial meniscus tear of right knee, initial encounter Kamar Gandara DO [address] [facility] [address] [address] Phone: tel: fax: External Order Referral ID Status Reason Start Date Expiration Date V isits Requested Visits Authorized [id number] Closed Specialty Services Required 09/12/2022 10/12/2023 24 24 Encounter Details Date Type Department Care Team (Late st Contact Info) Description 10/28/2022 9:15 AM CDT Therapy [facility] Occupational Therapy [address] [place] [id number] Ivet Estrada COTA Lymphedema (Primary Dx) Social History Tobacco Use Types Packs/Day Years Used Date Smoking Tobacco: Never Passive Smoke Exposure: Past Smokeless Tobacco: Never Alcohol Use Standard Drinks/Week Comments No 0 (1 standard drink = 0.6 oz pur e alcohol) Comments Unknown Sex and Gender Information Value Date Recorded Sex Assigned at Not on file Legal Sex Female 5:35 PM MOTEL MAID Gender Identity Not on file Sexual Orientation Not on file documented as of this encounter Progress Notes * Ivet Estrada COTA - 10/28/2022 9:15 AM CDT Images from the original note were not included. OT Daily Treatment Note Lindsaysafia Pedersen 1955 Subjective:Pt states that she just doesn't feel like she is making much progress with her swelling in her leg. She is thinking that she might just be dealing with more of an issue with her knee. She is planning to follow up with her orthopedic doctor this week. She took her bandages off Friday to shower. She is using her pump and used it this morning. Pain: 0 Objective: R-LE circumferential measurements (measured straight up from floor in cm) 09/25 10/02 10/07 10/09 10/18 10/28 MTP 26 21.4 20.7 nt 21 21 heel 33 30.5 28.5 nt 31.8 31 ankle 25.6 24.2 24.5 nt 26 22.5 10 cm 23.5 23 25.5 nt 23 23.3 20 cm 33 30 34.6 nt 34 31 30 cm 41 40.3 40 nt 41.6 42 40 cm 42 38 50.8 41.5 37 36 50 cm 65 57 51.9 52.7 56.2 60 cm 73.5 71 68 69 71.7 70 cm 82 82.7 nt 80 80.6 Around knee cap 45.3 48 43 43.7 46 43.3 L LE circumferential measurements (measured straight up from floor in cm) 09/25 10/02 10/07 8 MTP 26 nt nt nt heel 29.8 nt nt nt ankle 25 nt nt nt 10 cm 23 nt nt nt 20 cm 30 nt nt nt 30 cm 37.8 nt nt nt 40 cm 36.8 nt nt nt 50 cm 56.5 54.5 nt nt 60 cm 77 71.8 nt nt 70 cm 81 81 nt nt Around knee cap 39 nt nt nt Treatment Provided: Skin care- patient showered this morning and applied lotion prior to therapy appointment Measurements taken on R-LE above MLD- Not completed this date, as pt used pump this morning Compression- Therapist bandages R LE slightly over the knee using stockinette, artiflex padding, silveira foam piece at anterior ankle crease and short stretch bandages (6 cm, 8 cm, 10 cm and 2- 12 cm). Therapist applies R thigh reduction kit. Assessment: Pt has made progress with CDT, her measurements have improved in most aspects, however, she continues to have some swelling and discomfort at her knee. We have discussed getting thigh high compression garment for her, but she still may need to have knee surgery which may cause more swelling in her R-LE. This would change the dimensions of her R-LE and compression garment may not fit. Pt is going to schedule an appointment with her orthopedic doctor and we will continue CDT for now and then may discharge pt and she can follow up after surgery. STG to be met by 10/16/22 1. [...] reduction of 10 ml from R LE Plan:Continue per POC Patient to keep compression bandages and reduction kit on R leg at all times. Patient to remove bandages and reduction kit if she experiences pain that does not resolve with ambulation, numbness/tingling in toes, and/or shortness of breath. Start Time: 9:15 End Time: 10:00 YANIRA Whitman, CLT documented in this encounter Plan of Treatment Not on file documented as of this encounter Visit Diagnoses Diagnosis Lymphedema- Primary Other noninfectious lymphedema documented in this encounter Care Teams Corporate Administrative Assistant Relationship Specialty Start Date End Date Fidencio French MD [address] [place] [address] PCP - General Internal Medicine 06/12/22 documented as of this encounter
--- OUTSIDE RECORDS SUMMARY | 2024-03-23 01:51 | XMS_ITS | Encounter Summary ---
Author Organization [facility] Address [address] [facility] [address] [place] [address] Care Team Providers Care Medical Technologist Clinical Name Role Phone Amina Mccray HAIRSPRING INSPECTOR Primary Care Provider [phone] Reason for Visit * Reason Comments Test Results Encounter Details Date Type Department Care Team (Late st Contact Info) Description 03/21/2022 1:00 PM AUTOMOBILE SERVICE STATION MANAGER Office Visit [facility] Orthopedics and Sports Medicine [facility] [facility] [address] [place] [id number] Kamar Gandara DO [address] [facility] [address] [address] Acute medial meniscus tear of right knee, initial encounter (Primary Dx) Social History Tobacco Use Types Packs/Day Years Used Date Smoking Tobacco: Never Smokeless Tobacco: Never Alcohol Use Standard Drinks/Week Comments No 0 (1 standard drink = 0.6 oz pur e alcohol) Comments Unknown Sex and Gender Information Value Date Recorded Sex Assigned at Not on file Legal Sex Female 5:35 PM AUTOMOBILE SERVICE STATION MANAGER Gender Identity Not on file Sexual Orientation Not on file documented as of this encounter Progress Notes * Kamar Gandara DO - 03/21/2022 1:00 PM CST Images from the original note were not included. NEW PATIENT VISIT Subjective CHIEF COMPLAINT Right knee pain HISTORY OF PRESENT ILLINESS Patient presents today for evaluation of her right knee. She unfortunately had a fall in her bathtub this past August. She is had persistent knee pain since that time. Initial x-rays were negative but she did undergo MRI. She was found to have a meniscal tear of her posterior body medial meniscus. 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 She is tried therapy anti-inflammatories icing and activity modification. Her pain persist despite this. Pain is worse with activity and better with rest. PAST MEDICAL HISTORY She has a past medical history of Benign neoplasm of breast, Blood in urine, Hypertension, and Proteinuria. PAST SURGICAL HISTORY She has no past surgical history on file. MEDICATIONS She has a current medication list which includes the following prescription(s): amlodipine, atorvastatin, ergocalciferol, hydrochlorothiazide, linzess, losartan, metformin, saxagliptin, and trulicity. ALLERGIES She is allergic to no known allergies. SOCIAL HISTORY She reports that she has never smoked. She has never used smokeless tobacco. She [...] Exam of the right knee shows moderate clinical effusion. She is able to fully extend. Pain with deep flexion. Stable varus valgus stressing. There is increased laxity with valgus stressing compared to the left knee. Tenderness along medial joint line. Stable with anterior posterior drawer. REVIEW OF X-RAYS/STUDIES/LABS X-rays and MRI reviewed of the right knee reviewed. X-rays with minimal degenerative changes. MRI showing questionable tear of the posterior horn and body medial meniscus. Chondrosis of the medial femoral condyle with 4 x 16 mm full-thickness defect Diagnoses and all orders for this visit: Acute medial meniscus tear of right knee, initial encounter (Primary) Plan: I discussed further treatment with the patient. Reviewed surgical and conservative treatment options with her today. She is not responded with conservative care and her pain has been bothering her since her initial injury back in August. Recommend surgical intervention. This would involve arthroscopy with partial medial meniscectomy and possible microfracture of the medial femoral condyle. I discussed risks benefits complications alternatives to surgery with her including but not limited to infection, wound healing issues, neurovascular injury, continued pain, progression of arthritis, complications with DVT pulmonary embolism anesthesia. Also discussed postop course and need for protected weight-bearing. Patient understands would like to proceed. Will plan for this in the near future. All questions addressed. Kamar Gandara DO MOBILE SERVICE STATION MANAGER documented in this encounter Plan of Treatment Not on file documented as of this encounter Visit Diagnoses Diagnosis Acute medial meniscus tear of right knee, initial encounter- Primary documented in this encounter Care Teams Medical Technologist Clinical Relationship Specialty Start Date End Date Amina Mccray NP PCP - General Nurse Practitioner 10/04/21 06/11/22 documented as of this encounter
--- OUTSIDE RECORDS SUMMARY | 2024-03-23 01:51 | XMS_ITS | Encounter Summary ---
Author Organization [facility] Address [address] [facility] [address] [place] [address] Care Team Providers Care Dairy Equipment Specialist Name Role Phone Fidencio French MD Primary Care Provider [phone] Reason for Visit * Reason Onset Date Comments visco inj status 11/27/2022 Encounter Details Date Type Department Care Team ([facility] st Contact Info) Description 11/27/[address] 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 * Telephone Encounter - Liz Echols - 11/27/2022 3:27 PM CDT Patient checking status on her visco injections documented in this encounter Plan of Treatment Not on file documented as of this encounter Visit Diagnoses Not on filedocumented in this encounter Care Teams Dairy Equipment Specialist Relationship Specialty [place] [address] [place] [id number] PCP - General Internal Medicine 06/12/22 documented as of this encounter
--- OUTSIDE RECORDS SUMMARY | 2024-03-23 01:51 | XMS_ITS | Encounter Summary ---
Author Organization [facility] Healthcare Address [address] [place] [address] Care Team Providers Care Paid Search Marketing Strategist Name Role Phone Fidencio French MD Primary Care Provider [phone] Reason for Visit * Reason Comments OT Treatment * Consultation (Routine) - Closed Specialty Diagnoses / Procedures Referred By Kirt carvalho Referred To Contact Occupational Therapy Diagnoses Lymphedema Acute medial meniscus tear of right knee, initial encounter Kamar Gandara DO [address] [facility] [address] [address] Phone: tel: fax: External Order Referral ID Status Reason Start Date Expiration Date V isits Requested Visits Authorized [id number] Closed Specialty Services Required 09/12/2022 10/12/2023 24 24 Encounter Details Date Type Department Care Team (Late st Contact Info) Description 10/09/2022 10:45 AM CDT Therapy [facility] Occupational Therapy [address] [place] [id number] Venessa Haskins, OT Lymphedema (Primary Dx) Social History Tobacco Use Types Packs/Day Years Used Date Smoking Tobacco: Never Passive Smoke Exposure: Past Smokeless Tobacco: Never Alcohol Use Standard Drinks/Week Comments No 0 (1 standard drink = 0.6 oz pur e alcohol) Comments Unknown Sex and Gender Information Value Date Recorded Sex Assigned at Not on file Legal Sex Female 5:35 PM PRODUCTION MATERIAL COORDINATOR Gender Identity Not on file Sexual Orientation Not on file documented as of this encounter Progress Notes * Venessa Haskins, OT - 10/09/2022 10:45 AM CDT Images from the original note were not included. OT Daily Treatment Note Lindsay Pedersen 1955 Subjective: Patient removed bandages this morning to shower. Patient brought bandages into therapy.She is leaving to go out of town to [place] this Friday and will not be returning until the following Friday. She stated that she is going to wear her compression leggings/capris while she travels. Pain: 0 Objective: R LE cirmcumferential measurements [...] nt Treatment Provided: Measurements taken of R thigh Skin care- patient showered this morning and [...] cm). Therapist applies R thigh reduction kit. Therapist tightens one strap on reduction kit. Assessment: Pt is making good progress with CDT. Patient's thigh measurements decreased from previous session measured. Patient to return for CDT (Complete Decongestive Therapy) to decongest R leg for wound and infection prevention. Plan:Continue per POC Patient to keep compression bandages and reduction kit on R leg at all times. Patient to remove bandages and reduction kit if she experiences pain that does not resolve with ambulation, numbness/tingling in toes, and/or shortness of breath. Start Time: 1050 End Time: 1135 Venessa Haskins OT documented in this encounter Plan of Treatment Not on file documented as of this encounter Visit Diagnoses Diagnosis Lymphedema- Primary Other noninfectious lymphedema documented in this encounter Care Teams Paid Search Marketing Strategist Relationship Specialty Start Date End Date Fidencio French MD [address] [place] [id number] PCP - General Internal Medicine 06/12/22 documented as of this encounter
--- OUTSIDE RECORDS SUMMARY | 2024-03-23 01:51 | XMS_ITS | Encounter Summary ---
Author Organization [facility] Address [address] [place] [address] Phone Care Team Providers Care Configuration Management Architect Name Role Phone Fidencio French MD Primary Care Provider [phone] Encounter Details Date Type Department Care Team (Late st Contact Info) Description 06/12/2022 Telephone [facility] Surgery [address] [facility] [address] [place] [address] [place] [address] Saima Muhammad CNS Social History Tobacco Use Types Packs/Day Years Used Date Smoking Tobacco: Never Smokeless Tobacco: Never Alcohol Use Standard Drinks/Week Comments No 0 (1 standard drink = 0.6 oz pur e alcohol) Comments Unknown Sex and Gender Information Value Date Recorded Sex Assigned at Not on file Legal Sex Female 5:35 PM DIRECTOR OF ASSESSMENT Gender Identity Not on file Sexual Orientation Not on file documented as of this encounter Miscellaneous Notes * Telephone Encounter - Saima Muhammad CNS - 06/12/2022 12:05 PM CDT Patient phoned Surg Onc Scheduling hub yesterday and asked if she could see surgeon to remove a cyst on lower part of right breast in fold. Phoned patient to gather more details. She has some tenderness sometimes with movement and has not been able to wear a bra comfortably because it rubs the areaof cyst. It does not sound infected, though, and she completed a course of Septra DS approx 6 weeksago. Patient was uncomfortable trying to send a photo. Scheduled with ATHLETIC EVENTS SCORER and US for evaluation. Patient understands that issue may or may not be resolved at appointment on 06/19 and she still may haveto be seen by a surgeon at another time. Messaged ATHLETIC EVENTS SCORER re: same documented in this encounter Plan of Treatment Not on file documented as of this encounter Visit Diagnoses Not on filedocumented in this encounter Care Teams Configuration Management Architect Relationship Specialty Start Date End Date Fidencio French MD [address] [place] [address] PCP - General Internal Medicine 06/12/22 documented as of this encounter
--- OUTSIDE RECORDS SUMMARY | 2024-03-23 01:51 | XMS_ITS | Encounter Summary ---
Author Organization [facility] Address [address] [place] [address] Care Team Providers Care Supervisor Buffing And Pasting Name Role Phone Fidencio French MD Primary Care Provider [phone] Reason for Referral * Procedure (Routine) - Closed Specialty Diagnoses / Procedures Referred By Contac t Referred To Contact Diagnoses Primary osteoarthritis of knees, bilateral Procedures Large Joint (Hip, Knee, Shoulder) Injection: bilateral knee Kamar Gandara DO [address] [place] [address] DR DAWK[address] [place] [address] Phone: tel: fax: [facility] Referral ID Status Reason Start Date Expiration Date Visits Re quested Visits Authorized [id number] Closed 12/12/2022 01/11/2024 1 1 Reason for Visit * Reason Comments Pain Injections Pain Encounter Details Date Type Department Care Team (Latest Contact Info) Description 12/12/2022 9:00 AM CDT Clinical Support [facility] Orthopedics and Sports Medicine [facility] [address] [place] [phone] Kamar Gandara DO [facility]0 [facility] [address] [place] [address] Primary osteoarthritis of knees, bilateral (Primary Dx) Social History Tobacco Use Types Packs/Day Years Used Date Smoking Tobacco: Never Passive Smoke Exposure: Past Smokeless Tobacco: Never Alcohol Use Standard Drinks/Week Comments No 0 (1 standard drink = 0.6 oz pur e alcohol) Comments Unknown Sex and Gender Information Value Date Recorded Sex Assigned at Not on file 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 FOLLOW UP PATIENT VISIT Subjective CHIEF COMPLAINT She had concerns including Pain and Injections of the Right Knee and Pain of the Left Knee. HISTORY OF PRESENT ILLNESS Patient returns today for re-evaluation of her right knee and new complaint of left knee pain. She denies any new injuries to her right knee. Her left knee has been bothering her more over the past few months. No injury or trauma. Pain is worse with activity and better with rest. She denies any giving way or locking Objective PHYSICAL EXAM There were no vitals taken for this visit. Exam of the right knee unchanged. Exam of the left knee shows no erythema or signs of infection. She is able to fully extend flex to 135??. Tenderness over the medial joint line. Stable with varus valgus stressing. Stable anterior posterior drawer REVIEW OF X-RAYS/STUDIES/LABS Prior x-rays reviewed of the right knee showing [id number] degenerative changes with joint space narrowing in the medial compartment Diagnoses and all orders for this visit: Primary osteoarthritis of knees, bilateral (Primary) Plan: I reviewed treatment options with the patient today. She does have some degenerative changes of theright knee with tenderness along the medial joint line. We discussed conservative options. We are going to proceed injections today. Both knees injected with viscosupplementation and she tolerated this well. Follow up with me as scheduled Large Joint (Hip, Knee, Shoulder) Injection: bilateral [...] Procedure Name Priority Date/Time Associated Diagnosis Comments CO ARTHROCENTESIS ASPIR&/INJ MAJOR JT/BURSA W/O US Routine 12/12/2022 9:00 AM CDT Primary osteoarthritis of knees, bilateral documented in this encounter Results * CO ARTHROCENTESIS ASPIR&/INJ MAJOR JT/BURSA W/O US (12/12/2022 9:00 AM CDT) Narrative Kamar Gandara DO - 12/12/2022 9:00 AM CDT Kamar Gandara DO ? 12/12/2022 ??5:10 PM Large Joint (Hip, Knee, Shoulder) Injection: bilateral [...] mg, intra-articular, One-Time Injection, Starting on Lorie 12/12/22 at 0900, For 1 dose, Indications: Osteoarthritis of the KneeIndications:Osteoarthritis of the Knee Given 12/12/2022 9:00 AM CDT 16 mg hylan g-f 20 (SYNVISC) 16 mg/2 mL injection 16 mg 16 mg, intra-articular, One-Time Injection, Starting on Lorie 12/12/22 at 0900, For 1 dose, Indications: Osteoarthritis of the KneeIndications:Osteoarthritis of the Knee Given 12/12/2022 9:00 AM CDT 16 mg documented in this encounter Care Teams Supervisor Buffing And Pasting Relationship Specialty [place] [address] [place] [address] PCP - General Internal Medicine 06/12/22 documented as of this encounter
--- OUTSIDE RECORDS SUMMARY | 2024-03-23 01:51 | XMS_ITS | Encounter Summary ---
Author Organization [facility] Address [address] [place] [address] Care Team Providers Care Computer Systems Technician Name Role Phone Fidencio French MD Primary Care Provider [phone] Reason for Referral * Procedure (Routine) - Closed Specialty Diagnoses / Procedures Referred By Contac t Referred To Contact Diagnoses Primary osteoarthritis of knees, bilateral Procedures Large Joint (Hip, Knee, Shoulder) Injection: bilateral knee Kamar Gandara DO [facility] [address] [place] [address] Phone: tel: fax: [facility] Referral ID Status Reason Start Date Expiration Date Visits Re quested Visits Authorized [id number] Closed 12/19/2022 01/18/2024 1 1 Reason for Visit * Reason Comments Pain Pain Encounter Details Date Type Department Care Team (Latest Contact Info) Description 12/19/2022 9:30 AM CDT Clinical Support [facility] Orthopedics and Sports Medicine [facility] [place] [phone] Kamar Gandara DO [facility] [address] [place] [address] Primary osteoarthritis of knees, bilateral (Primary Dx) Social History Tobacco Use Types Packs/Day Years Used Date Smoking Tobacco: Never Passive Smoke Exposure: Past Smokeless Tobacco: Never Tobacco Cessation:Counseling Given: No Alcohol Use Standard Drinks/Week Comments No 0 (1 standard drink = 0.6 oz pur e alcohol) Comments Unknown Sex and Gender Information Value Date Recorded Sex Assigned at Not on file 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 Gender Identity Not on file Sexual Orientation Not on file documented as of this encounter Last Filed Vital Signs Vital Sign Reading Time Taken Comments Blood Pressure - - Pulse - - Temperature - - Respiratory Rate - - Oxygen Saturation - - Inhaled Oxygen Concentration - - Weight 98.4 kg (217 lb) 12/19/2022 9:47 AM CDT Height 154.9 cm (5' 1 ) 12/19/2022 9:47 AM CDT Body Mass Index 41 12/19/2022 9:47 AM CDT documented in this encounter Progress Notes * Kamar Gandara DO - 12/19/2022 9:30 AM CDTAssociated Order(s): Large Joint (Hip, Knee, Shoulder) Injection: bilateral knee Post-Procedure Diagnose(s): Primary osteoarthritis of knees, bilateral Images from the original note were not included. FOLLOW UP PATIENT VISIT Subjective CHIEF COMPLAINT She had concerns including Pain of the Left Knee and Pain of the Right Knee. HISTORY OF PRESENT ILLINESS Patient returns today for re-evaluation of their bilateral knees. They continue to obtain good relief and are here today for repeat injection. No new injuries or trauma. No recent fevers or chills. Pain Assessment Pain Assessment: No/denies pain Objective PHYSICAL EXAM Ht 154.9 cm (5' 1 ) Wt 98.4 kg (217 lb) BMI 41.00 kg/m?? Bilateral knees exam unchanged. No erythema or signs of infection. Joint line tenderness Diagnoses and all orders for this visit: Primary osteoarthritis of knees, bilateral (Primary) Plan: Discussed further treatment with the [...] ARTHROCENTESIS ASPIR&/INJ MAJOR JT/BURSA W/O US Routine 12/19/2022 9:30 AM CDT Primary osteoarthritis of knees, bilateral documented in this encounter Results * NC ARTHROCENTESIS ASPIR&/INJ MAJOR JT/BURSA W/O US (12/19/2022 9:30 AM CDT) Narrative Kamar Gandara DO - 12/19/2022 9:30 AM CDT Kamar Gandara DO ? 12/19/2022 ??5:05 PM Large Joint (Hip, Knee, Shoulder) Injection: [...] mg, intra-articular, One-Time Injection, Starting on Lorie 12/19/22 at 0930, For 1 dose, Indications: Osteoarthritis of the KneeIndications:Osteoarthritis of the Knee Given 12/19/2022 9:30 AM CDT 16 mg hylan g-f 20 (SYNVISC) 16 mg/2 mL injection 16 mg 16 mg, intra-articular, One-Time Injection, Starting on Lorie 12/19/22 at 0930, For 1 dose, Indications: Osteoarthritis of the KneeIndications:Osteoarthritis of the Knee Given 12/19/2022 9:30 AM CDT 16 mg documented in this encounter Care Teams Computer Systems Technician Relationship Specialty Start Date End Date Fidencio French MD [address] [place] [address] PCP - General Internal Medicine 06/12/22 documented as of this encounter
--- OUTSIDE RECORDS SUMMARY | 2024-03-23 01:51 | XMS_ITS | Encounter Summary ---
Author Organization [facility] Address [address] [place] [address] Care Team Providers Care Assembler Rubber Footwear Name Role Phone Fidencio French MD Primary Care Provider [phone] Reason for Visit * Reason Comments OT Treatment * Consultation (Routine) - Closed Specialty Diagnoses / Procedures Referred By Kirt carvalho Referred To Contact Occupational Therapy Diagnoses Lymphedema Acute medial meniscus tear of right knee, initial encounter Kamar Gandara DO [address] [facility] [address] [address] Phone: tel: fax: External Order Referral ID Status Reason Start Date Expiration Date V isits Requested Visits Authorized [id number] Closed Specialty Services Required 09/12/2022 10/12/2023 24 24 Encounter Details Date Type Department Care Team (Late st Contact Info) Description 10/07/2022 9:15 AM CDT Therapy [facility] Occupational Therapy [address] [place] [address] Ivet Estrada COTA Lymphedema (Primary Dx) Social History Tobacco Use Types Packs/Day Years Used Date Smoking Tobacco: Never Passive Smoke Exposure: Past Smokeless Tobacco: Never Alcohol Use Standard Drinks/Week Comments No 0 (1 standard drink = 0.6 oz pur e alcohol) Comments Unknown Sex and Gender Information Value Date Recorded Sex Assigned at Not on file 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 OT Daily Treatment Note Lindsay Pedersen 1955 Subjective: Pt stated that her bandages were falling down by Friday morning, so she took them off. She showered this morning and brought bandages back with her to clinic. She is leaving to go out of town to [place] this Friday and will not be returning until the following Friday. She stated that she is going to wear her compression leggings while she travels. Pain: 0 just discomfort in her R-knee Objective: R LE cirmcumferential measurements (measured straight up from floor in cm) 09/25 10/02 10/07 MTP 26 21.4 20.7 heel 33 30.5 28.5 ankle 25.6 24.2 24.5 10 cm 23.5 23 25.5 20 cm 33 30 34.6 30 cm 41 40.3 40 40 cm 42 38 50.8 50 cm 65 57 60 cm 73.5 71 70 cm 82 82.7 Around knee cap 45.3 48 43 L LE circumferential measurements (measured straight up [...] with CDT. Patient to return for CDT (Complete Decongestive Therapy) to decongest R leg for wound and infection prevention. Plan:Continue per POC Patient to keep compression bandages and reduction kit on R leg at all times. Patient to remove bandages and reduction kit if she experiences pain that does not resolve with ambulation, numbness/tingling in toes, and/or shortness of breath. Start Time: 9:02 End Time: 9:56 YANIRA Whitman documented in this encounter Plan of Treatment Not on file documented as of this encounter Visit Diagnoses Diagnosis Lymphedema- Primary Other noninfectious lymphedema documented in this encounter Care Teams Assembler Rubber Footwear Relationship Specialty Start Date End Date Fidencio French MD [address] [place] [address] PCP - General Internal Medicine 06/12/22 documented as of this encounter
--- OUTSIDE RECORDS SUMMARY | 2024-03-23 01:51 | XMS_ITS | Encounter Summary ---
Author Organization [facility] Address [address] [place] [address] Care Team Providers Care Cotton Factor Name Role Phone Fidencio French MD Primary Care Provider [phone] Encounter Details Date Type Department Care Team (Late st Contact Info) Description 10/30/2022 Telephone [facility] Orthopedics and Sports Medicine [address] [facility] [address] [place] [phone] Kamar Gandara DO [address] [facility] [address] [place] [address] Social History Tobacco Use Types Packs/Day Years Used Date Smoking Tobacco: Never Passive Smoke Exposure: Past Smokeless Tobacco: Never Alcohol Use Standard Drinks/Week Comments No 0 (1 standard drink = 0.6 oz pur e alcohol) Comments Unknown Sex and Gender Information Value Date Recorded Sex Assigned at Not on file 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 * Telephone Encounter - Cynthia Slade MA - 10/30/2022 4:32 PM CDT Need to come in for follow up * Telephone Encounter - Janna Hinson - 10/30/2022 1:19 PM CDT JAW Pt wanting a call back from SHIRA regarding rt leg, having pain, not sleeping at night Says she gets her leg wrapped at PT 3 times a week documented in this encounter Plan of Treatment Not on file documented as of this encounter Visit Diagnoses Not on filedocumented in this encounter Care Teams Cotton Factor Relationship Specialty Start Date End Date Fidencio French MD [address] [place] [address] PCP - General Internal Medicine 06/12/22 documented as of this encounter
--- OUTSIDE RECORDS SUMMARY | 2024-03-23 01:51 | XMS_ITS | Encounter Summary ---
Author Organization [facility] Healthcare Address [address] [place] [address] Care Team Providers Care Tier Truck Driver Name Role Phone Fidencio French MD Primary Care Provider [phone] Reason for Visit * Reason Comments PT Treatment * Physical Therapy (Routine) - Closed Specialty Diagnoses / Procedures Referred By Nithinac t Referred To Contact Physical Therapy Diagnoses Acute medial meniscus tear of right knee, initial encounter Kamar Gandara DO [address] [address] Phone: tel: fax: [facility] OP Physical Therapy [address] [place] [address] Phone: tel: fax: Referral ID Status Reason Start Date Expiration Date V isits Requested Visits Authorized [id number] Closed Specialty Services Required 12/09/2022 03/23/2023 12 99 Encounter Details Date Type Department Care Team (Late st Contact Info) Description 12/20/2022 2:15 PM CDT Therapy [facility] OP Physical Therapy [address] [place], [place] [phone] Cash Cerda PTA Acute medial meniscus tear of right [...] on file 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 Acute medial [...] Date Date Date Date 12-09-22 12/17/22 12/20/22 Visit Number 1 2 3 ADDITIONAL HEP SHEETS ISSUED Took time to review TENS unit Nu Step or Recumbent bike Level 4 for 5 minutes NT Incline Stretch Hamstring Stretch 3x 10 sec 3 x 30 sec hold 3 x 30 sec hold NT time TKE manual stretch QS with TKE with blue fit ball 20x NT time STM for swelling control NT Mat Table: SLR CLAMS BRIDGES SAQ HAMSTRING CURLS 10X 10X 10X 10x 2 each SLR 10x SLR with ER 6x Clamshells reviewed Bridging 10x Stair Training NT time Leg Press NT time Hip Machine NT time // bars: side steps, toe taps, heel raises, hip abd, hip ext, romberg, tandem, SL, etc NT time IFC with ice Next visit IFC/CP right knee NT, reviewed pt's home TENS unit use Progress Note/Re-Cert * Cash Cerda, AUTOMATIC MACHINE ATTENDANT - 12/20/2022 2:15 PM CDT Images from the original note were not included. Physical Therapy Visit/Daily Note 12/20/2022 Lindsay Pedersen 1955 ICD-9-CM ICD-10-CM 1. Acute medial meniscus tear of right knee, initial encounter 836.0 S83.241A FIDENCIO FRENCH Subjective: Pt reports she is in some pain today due to get shots in both knees yesterday. Pt reports she has been on her feet a lot and has to go up and down stairs to get to her washer/dryer/freezer. Pt is reporting continued difficulty with swelling. Pain today is 1/10 reporting soreness. Changes since last visit include none. Objective: Objective Measurement/Observation: Pt ambulates without AD, R trendelenburg gait present. Antalgic gait with decreased L LE step length. Pt demonstrating significant weakness with toe out external rotation. Pt given cues for SLR for full QS prior to lifting along with eccentric control. Pt given cues for TA activations with bridging, cues for breathing. Pt given cues/education on not rolling backwards with clamshells. Moderate edema present in the R LE. Pt unable to reach full TKE due to edema. Specific exercises and treatment interventions are outlined on exercise worksheet document. Treatment Performed on This Visit: Manual Therapy (body part and techniques): none Therapeutic Procedure/Exercise:Focused on hip and knee strengthening Modalities:Reviewing pt's personal TENS unit HEP given:SLR with external rotation Patient education:Pt educated on importance of SLR to help prevent/slow arthritis. Pt educated on importance of SLR with external rotation to help with stability. Pt educated on using a cane due to the antalgia in her gait. Assessment: Patient tolerated today's treatment fairly, having some pain throughout. AUTOMATIC MACHINE ATTENDANT spent significant timehelping pt with home TENS unit. Pt would benefit from using a cane to help take pressure off her knee and reduce likelihood of problems due to gait deficits. Patient demonstrates R meniscus tear which is contributing to difficulty with pain, mobility, and proper gait. Patient would benefit from additional skilled therapy services and demonstrates good prognosis to achieve stated goals. Goals Addressed This Visit: STG 1,2 Plan: Patient would benefit from the following modification on next visit: continue POC. Therapy will continue to address these impairments in order to progress towards functional goals. Cash Cerda PTA [facility] ATTENTION PHYSICIAN If you [...] Primary documented in this encounter Care Teams Tier Truck Driver Relationship Specialty Start Date End Date Fidencio French MD [address] [place] [address] PCP - General Internal Medicine 06/12/22 documented as of this encounter
--- OUTSIDE RECORDS SUMMARY | 2024-03-23 01:51 | XMS_ITS | Encounter Summary ---
Author Organization [facility] Healthcare Address [address] [place] [address] Care Team Providers Care Cook Dessert Name Role Phone Fidencio French MD Primary Care Provider [phone] Reason for Referral * Diagnostic Imaging (Routine) - Closed Specialty Diagnoses / Procedures Referred By Kirt carvalho Referred To Contact Diagnoses Breast cyst, right Procedures US Breast Right Limited Jody Durán NP Phone: tel: fax: [address] [phone] Referral ID Status Reason Start Date Expiration Date Visits Re quested Visits Authorized [id number] Closed 06/12/2022 07/12/2023 1 1 Reason for Visit * Diagnostic Imaging (Routine) - Closed Specialty Diagnoses / Procedures Referred By Kirt carvalho Referred To Contact Diagnoses Breast cyst, right Procedures US Breast Right Limited Jody Durán NP Phone: tel: fax: [address] [phone] Referral ID Status Reason Start Date Expiration Date Visits Re quested Visits Authorized [id number] Closed 06/12/2022 07/12/2023 1 1 Encounter Details Date Type Department Care Team (Latest Contact Info) Description 06/19/2022 10:00 AM CDT - 06/19/2022 11:59 PM CDT Hospital Encounter [facility] ([facility]) [address] [place] [address] Breast cyst, right Discharge Disposition: Discharge to [...] on file 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 Electronically signed by: Zulay Cedeño MD Narrative 06/19/2022 11:44 AM CDT EXAMINATION: RIGHT UNILATERAL [...] RIGHT breast was performed by a trained plastic products sales representative and by Gala . BREAST PARENCHYMAL COMPOSITION: [...] RIGHT breast was performed by a trained plastic products sales representative and by Gala . BREAST PARENCHYMAL COMPOSITION: [...] right documented in this encounter Care Teams Cook Dessert Relationship Specialty Start Date End Date Fidencio French MD [address] [place] [address] PCP - General Internal Medicine 06/12/22 documented as of this encounter
--- OUTSIDE RECORDS SUMMARY | 2024-03-23 01:51 | XMS_ITS | Encounter Summary ---
Author Organization [facility] Healthcare Address [address] [place] [address] Care Team Providers Care Technician Helper Instrument Name Role Phone Fidencio French MD Primary Care Provider [phone] Reason for Visit * Reason Comments OT Treatment * Consultation (Routine) - Closed Specialty Diagnoses / Procedures Referred By Kirt carvalho Referred To Contact Occupational Therapy Diagnoses Lymphedema Acute medial meniscus tear of right knee, initial encounter Kamar Gandara DO [address] [facility] [address] [address] Phone: tel: fax: External Order Referral ID Status Reason Start Date Expiration Date V isits Requested Visits Authorized [id number] Closed Specialty Services Required 09/12/2022 10/12/2023 24 24 Encounter Details Date Type Department Care Team (Late st Contact Info) Description 11/04/2022 9:15 AM CDT Therapy [facility] Occupational Therapy [address] [place] [id number] Ivet Estrada COTA Lymphedema (Primary Dx) Social History Tobacco Use Types Packs/Day Years Used Date Smoking Tobacco: Never Passive Smoke Exposure: Past Smokeless Tobacco: Never Alcohol Use Standard Drinks/Week Comments No 0 (1 standard drink = 0.6 oz pur e alcohol) Comments Unknown Sex and Gender Information Value Date Recorded Sex Assigned at Not on file 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 Occupational Therapy Visit OT Daily Treatment Note Lindsay Pedersen 1955 Subjective: Pt stated that her knee has been feeling okay. She was busy most of the weekend with her family in town. Pain: 0 Objective: *No measurements taken this date. R-LE circumferential measurements (measured straight up from floor in cm) 09/25 10/02 10/07 10/09 10/18 8 MTP 26 21.4 20.7 nt 21 21 [...] from floor in cm) 09/25 10/02 10/07 10/28 MTP 26 nt nt nt heel 29.8 [...] Skin care- patient showered this morning and put on lotion. Therapist and pt re- roll bandages as she didn't have time to get them all rolled this morning. MLD- Therapist completes MLD sequence for unilateral LE swelling (R LE) utilizing IA and AII anastomosis. Sequence completed through R ankle while patient supine on treatment table. Short neck and deep breathing completed. Compression- Therapist bandages R LE [...] R leg for wound and infection prevention. Plan::Continue per POC Patient to keep compression bandages [...] lymphedema documented in this encounter Care Teams Technician Helper Instrument Relationship Specialty Start Date End Date Fidencio French MD [address] [place] [address] PCP - General Internal Medicine 06/12/22 documented as of this encounter
--- OUTSIDE RECORDS SUMMARY | 2024-03-23 01:51 | XMS_ITS | Encounter Summary ---
Author Organization [facility] Healthcare Address [address] [place] [address] Care Team Providers Care Payroll Accounting Clerk Name Role Phone Fidencio French MD Primary Care Provider [phone] Reason for Visit * Consultation (Routine) - Closed Specialty Diagnoses / Procedures Referred By Kirt carvalho Referred To Contact Occupational Therapy Diagnoses Lymphedema Acute medial meniscus tear of right knee, initial encounter Kamar Gandara DO [address] [facility] [address] [address] Phone: tel: fax: External Order Referral ID Status Reason Start Date Expiration Date V isits Requested Visits Authorized [id number] Closed Specialty Services Required 09/12/2022 10/12/2023 24 24 Encounter Details Date Type Department Care Team (Late st Contact Info) Description 09/30/2022 9:15 AM CDT Therapy [facility] Occupational Therapy [address] [place] [id number] Ivet Estrada COTA Lymphedema (Primary Dx) Social History Tobacco Use Types Packs/Day Years Used Date Smoking Tobacco: Never Passive Smoke Exposure: Past Smokeless Tobacco: Never Alcohol Use Standard Drinks/Week Comments No 0 (1 standard drink = 0.6 oz pur e alcohol) Comments Unknown Sex and Gender Information Value Date Recorded Sex Assigned at Not on file 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 OT Daily Treatment Note Lindsay Pedersen 1955 Subjective: Pt reports that she had trouble with her reduction kit sliding down over the weekend. She had her right leg bandages on and her reduction kit when she returned to therapy this date. Pain: 0 Objective: No measurements taken this session R LE cirmcumferential measurements (measured straight up from floor in cm) 09/25 MTP 26 heel 33 ankle 25.6 10 cm 23.5 20 cm 33 30 cm 41 40 cm 42 50 cm 65 60 cm 73.5 70 cm 82 Around knee cap 45.3 L LE circumferential measurements (measured straight up from floor in cm) 09/25 MTP 26 heel 29.8 ankle 25 10 cm 23 20 cm 30 30 cm 37.8 40 cm 36.8 50 cm 56.5 60 cm 77 70 cm 81 Around knee cap 39 Treatment Provided: Therapist removes reduction kit from R-thigh and bandages from just above R-knee and rerolls. Skin care-therapist washes R-LE and applies Eucerin lotion. MLD- Therapist completes MLD sequence for unilateral LE swelling (R LE) utilizing IA and AII anastomosis. Therapist completes trunk portion only this session. Short neck and deep abdominal techniquescompleted. Compression- Therapist bandages R LE slightly over the knee using stockinette, artiflex padding, silveira foam piece at anterior ankle crease and short stretch bandages (6 cm, 8 cm, 10 cm and 2- 12 cm). Therapist applies R thigh reduction kit. Therapist tightens kit slightly. Therapist educates patient on bandage and reduction kit wear time and precautions. Assessment: Patient reports understanding of bandage wear time and precautions. Patient to return for CDT (Complete Decongestive Therapy) to decongest R leg for wound and infection prevention. Plan: Continue per POC Patient to keep compression bandages and reduction kit on R leg at all times. Patient to remove bandages and reduction kit if she experiences pain that does not resolve with ambulation, numbness/tingling in toes, and/or shortness of breath. Start Time: 9:15 End Time: 10:00 YANIRA Whitman documented in this encounter Plan of Treatment Not on file documented as of this encounter Visit Diagnoses Diagnosis Lymphedema- Primary Other noninfectious lymphedema documented in this encounter Care Teams Payroll Accounting Clerk Relationship Specialty Start Date End Date Fidencio French MD [address] [place] [address] PCP - General Internal Medicine 06/12/22 documented as of this encounter
--- OUTSIDE RECORDS SUMMARY | 2024-03-23 01:51 | XMS_ITS | Encounter Summary ---
Author Organization [facility] Healthcare Address [address] [place] [address] Care Team Providers Care Consultant Education Name Role Phone Fidencio French MD Primary Care Provider [phone] Reason for Visit * Reason Comments OT Treatment * Consultation (Routine) - Closed Specialty Diagnoses / Procedures Referred By Kirt carvalho Referred To Contact Occupational Therapy Diagnoses Lymphedema Acute medial meniscus tear of right knee, initial encounter Kamar Gandara DO [address] [facility] [address] [address] Phone: tel: fax: External Order Referral ID Status Reason Start Date Expiration Date V isits Requested Visits Authorized [id number] Closed Specialty Services Required 09/12/2022 10/12/2023 24 24 Encounter Details Date Type Department Care Team (Late st Contact Info) Description 10/04/2022 1:45 PM CDT Therapy [facility] Occupational Therapy [address] [place] [id number] Venessa Haskins, OT Lymphedema (Primary Dx) Social History Tobacco Use Types Packs/Day Years Used Date Smoking Tobacco: Never Passive Smoke Exposure: Past Smokeless Tobacco: Never Alcohol Use Standard Drinks/Week Comments No 0 (1 standard drink = 0.6 oz pur e alcohol) Comments Unknown Sex and Gender Information Value Date Recorded Sex Assigned at Not on file 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 OT Daily Treatment Note Lindsay Pedersen 1955 Subjective: Patient removed compression bandages today to shower prior to therapy. Patient states her leg looks smaller. She said it was easier to navigate the basement stairs Pain: 0 Objective: No measurements taken this session R LE cirmcumferential measurements (measured straight up from floor in cm) 09/25 10/02 MTP 26 21.4 heel 33 30.5 ankle 25.6 24.2 10 cm 23.5 23 20 cm 33 30 30 cm 41 40.3 40 cm 42 38 50 cm 65 60 cm 73.5 70 cm 82 Around knee cap 45.3 48 L LE circumferential measurements (measured straight up from floor in cm) 09/25 10/02 MTP 26 nt heel 29.8 nt ankle 25 nt 10 cm 23 nt 20 cm 30 nt 30 cm 37.8 nt 40 cm 36.8 nt 50 cm 56.5 54.5 60 cm 77 71.8 70 cm 81 81 Around knee cap 39 nt Treatment Provided: Skin care- patient showered [...] Therapist applies R thigh reduction kit. Assessment: Patient to return for CDT (Complete Decongestive Therapy) to decongest R leg for wound and infection prevention. Plan: Continue per POC Patient to keep compression bandages and reduction kit on R leg at all times. Patient to remove bandages and reduction kit if she experiences pain that does not resolve with ambulation, numbness/tingling in toes, and/or shortness of breath. Start Time: 1345 End Time: 1430 Venessa Haskins OT documented in this encounter Plan of Treatment Not on file documented as of this encounter Visit Diagnoses Diagnosis Lymphedema- Primary Other noninfectious lymphedema documented in this encounter Care Teams Consultant Education Relationship Specialty Start Date End Date Fidencio French MD [address] [place] [address] PCP - General Internal Medicine 06/12/22 documented as of this encounter
--- OUTSIDE RECORDS SUMMARY | 2024-03-23 01:51 | XMS_ITS | Encounter Summary ---
Author Organization [facility] Healthcare Address [address] [place] [address] Care Team Providers Care Wood Mechanist Name Role Phone Fidencio French MD Primary Care Provider [phone] Reason for Visit * Reason Comments OT Treatment * Consultation (Routine) - Closed Specialty Diagnoses / Procedures Referred By Kirt carvalho Referred To Contact Occupational Therapy Diagnoses Lymphedema Acute medial meniscus tear of right knee, initial encounter Kamar Gandara DO [address] [facility] [address] [address] Phone: tel: fax: External Order Referral ID Status Reason Start Date Expiration Date V isits Requested Visits Authorized [id number] Closed Specialty Services Required 09/12/2022 10/12/2023 24 24 Encounter Details Date Type Department Care Team (Late st Contact Info) Description 11/13/2022 9:15 AM CDT Therapy [facility] Occupational Therapy [address] [place] [id number] Ivet Estrada COTA Lymphedema (Primary Dx) Social History Tobacco Use Types Packs/Day Years Used Date Smoking Tobacco: Never Passive Smoke Exposure: Past Smokeless Tobacco: Never Alcohol Use Standard Drinks/Week Comments No 0 (1 standard drink = 0.6 oz pur e alcohol) Comments Unknown Sex and Gender Information Value Date Recorded Sex Assigned at Not on file 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 Occupational Therapy Visit OT Daily Treatment Note Lindsay Coker Slava 1955 Subjective: Pt reports that the knee reduction kit was really irritating the back of her knee so she had to take it off. She also stated that the bandage was bothering her achilles tendon so she tookthem off Friday evening. Pain: 0 Objective: *No measurements taken this [...] Treatment Provided: Skin care- patient showered this morning, but didn't get her lotion on. Pt applied Eucerin lotion to her R-LE. MLD- Therapist completes MLD sequence for unilateral [...] lymphedema documented in this encounter Care Teams Wood Mechanist Relationship Specialty [place] [address] [place] [address] PCP - General Internal Medicine 06/12/22 documented as of this encounter
--- OUTSIDE RECORDS SUMMARY | 2024-03-23 01:51 | XMS_ITS | Encounter Summary ---
Author Organization [facility] Healthcare Address [address] [place] [address] Care Team Providers Care Can Washer Name Role Phone Fidencio French MD Primary Care Provider [phone] Reason for Visit * Reason Comments PT Initial Eval * Physical Therapy (Routine) - Closed Specialty Diagnoses / Procedures Referred By Kirt t Referred To Contact Physical Therapy Diagnoses Acute medial meniscus tear of right knee, initial encounter Kamar Gandara DO [address] [address] Phone: tel: fax: [facility] OP Physical Therapy [address] [place] [address] Phone: tel: fax: Referral ID Status Reason Start Date Expiration Date V isits Requested Visits Authorized [id number] Closed Specialty Services Required 12/09/2022 03/23/2023 12 99 Encounter Details Date Type Department Care Team (Late st Contact Info) Description 12/09/2022 2:15 PM CDT Therapy [facility] OP Physical Therapy [address] [place] [id number] Jesenia Mcgovern, TAYO Acute medial meniscus tear of right knee, [...] file 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 Acute medial meniscus tear of right knee, initial encounter 836.0 S83.241A Ambulatory referral order to Physical Therapy - FIDENCIO FRENCH PT Diagnosis: knee discomfort due [...] 02-03-23 Date Date Date Date Date 12-09-22 Visit Number 1 ADDITIONAL HEP SHEETS ISSUED Nu Step or Recumbent bike Incline Stretch Hamstring Stretch 3x 10 sec TKE manual stretch STM for swelling control Mat Table: SLR CLAMS BRIDGES SAQ HAMSTRING CURLS 10X 10X 10X Stair Training Leg Press Hip Machine // bars: side steps, toe taps, heel raises, hip abd, hip ext, romberg, tandem, SL, etc IFC with ice Next visit Progress Note/Re-Cert * Jesenia Mcgovern, PT - 12/09/2022 2:15 PM CDT Images from the original note were not included. Physical Therapy Evaluation /Initial Certification 12/09/2022 Lindsay Pedersen 1955 67 y.o. female FIDENCIO FRENCH ICD-9-CM ICD-10-CM 1. Acute medial meniscus tear of right knee, initial encounter 836.0 S83.241A Ambulatory referral order to Physical Therapy - Past Medical History: Diagnosis Date Benign neoplasm of breast Blood in urine Hypertension Proteinuria No past surgical history on file. Subjective: History of Present Condition Surgical Patient: no Date of Onset: Hx of knee pain after she tripped and fell on it. Pt performed therapy after first fall and it felt better but then she fell on it again in Dec 2021 and injured it again. Description of Onset: Fall August 2020 and then another fall in Dec 2021 Pt went to [facility] group for lymphedema therapy due to being diagnosed with lymphedema. Dr. Gandara doesn't think she has lymphedema Prior Diagnostic Tests and Results: Mar 2022: Mild right hip osteoarthritis. Mild medial compartment right knee osteoarthritis with a small knee effusion. MRI Feb 2022: IMPRESSION: 1. Questionable nondisplaced tear of the right medial meniscus posterior horn. 2. Severe medial compartment chondrosis. Other Treatment for this Diagnosis: injection in May 2022 Previous Physical Therapy for this Diagnosis: yes If yes, when: Last year Response to prior therapy treatment: it helped Changes/reason for returning to therapy: it got worse Symptoms Pt reports to therapy with complaints of discomfort and stinging in the R knee. Feels unstable withR knee. Denies any falls since last Dec Current pain ratin/10 At best pain rating: Doesn't rate/10 At worst pain rating: Doesn't rate/10 Exacerbating Factors: at night, getting in comfortable position, getting up in the middle of night Relieving Factors: no pain pills. Aspirin cream, bio freeze, Voltaren, ice Function Current Functional Deficits: prolonged walking, stairs - going down sideways, standing prolonged positions, getting up from seated or low surfaces Functional Status (just prior to the onset of the treating condition requiring therapy): independent with adls Occupation: retired Equipment Used: none Lives in: 1 level home with laundry in basement. 3 steps to enter with banister Support at Home: alone Home environment/obstacles: none Cognitive Status: follows directions and able to answer questions independently Objective: Lower Extremity Objective Active Range of Motion L R Knee flexion 125 deg. 120 deg. Knee Extension 0 deg. -8 deg. Strength L R Hip flexion 4+ /5 4- /5 Hip extension Full bridge Full bridge Hip abduction 4 /5 3+ /5 Hip internal rotation 5 /5 5 /5 Hip external rotation 4 /5 4 /5 Knee flexion 5 /5 5- /5 Knee Extension 5 /5 4- /5 Ankle dorsiflexion 5 /5 5 /5 Ankle plantarflexion 5 /5 5 /5 Flexibility L R Rectus Femoris normal Normal Piriformis normal normal Hamstrings normal Min deficit Gastrocs Min deficit Min deficit Gait Assessment: ambulates with slight limp Transfers: independent Palpation: no tenderness Joint Mobility: normal Observation: 1 inch swelling difference in R quad vs L Treatment Performed on This Visit: Manual Therapy: none Therapeutic Procedure/Exercise: HEP Modalities: no time HEP given: bridges, slr, clams, hamstring stretch Patient education: HEP, POC, tens unit Assessment: Rehab potential or prognosis: good Patient requires additional skilled therapy services for Dec knee extension mobility, dec strength,inc swelling, and for return to prior level of function. Patient participated in establishing goals. PT Diagnosis: knee discomfort due to weakness, [...] PT Eval Date: 12-09-22 Orders : 02-03-23 INITIAL CERTIFICATION DATES: From 12/09/22 to 02/03/2023 (8 weeks) Plan: Patient will benefit from skilled physical therapy services 2 times per week for 6-8 weeks. Treatment may include: therapeutic exercise, manual therapy, gait/transfer training, neuromuscular re-education, and modalities as needed. Patient educated and acknowledged understanding of therapy diagnosis, prognosis, pain relief instructions, precautions, risks, benefits and agree with the treatment plan and goals. Patient will be discharged from therapy upon completion of goals, physician order, or when therapist determines patient is appropriate for discharge from skilled therapy services. Jesenia Mcgovern PT [facility] ATTENTION PHYSICIAN If you are unable to [...] 1 documented in this encounter Care Teams Can Washer Relationship Specialty Start Date End Date Fidencio French MD [facility] [place] [address] PCP - General Internal Medicine 06/12/22 documented as of this encounter
--- OUTSIDE RECORDS SUMMARY | 2024-03-23 01:51 | XMS_ITS | Encounter Summary ---
Author Organization [facility] Address [address] [place] [address] Phone Care Team Providers Care Project Economist Name Role Phone Fidencio French MD Primary Care Provider [phone] Reason for Visit * Reason Comments Follow-up * Consultation (Routine) - Closed Specialty Diagnoses / Procedures Referred By Kirt carvalho Referred To Contact Surgical Oncology Diagnoses Breast cyst, right Shazia, Amina Emily, LAYAWAY CLERK [address] [place] [address] Phone: tel: fax: Jody Durán NP [address] [place] [address] Phone: tel: fax: Referral ID Status Reason Start Date Expiration Date V isits Requested Visits Authorized [id number] Closed Specialty Services Required 06/12/2022 07/12/2023 1 1 Encounter Details Date Type Department Care Team (Late st Contact Info) Description 06/19/2022 9:45 AM CDT Office Visit [facility] Surgery [address] 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 Gender Identity Not on file Sexual Orientation Not on file documented as of this encounter Last Filed Vital Signs Vital Sign Reading Time Taken Comments Blood Pressure - - Pulse - - Temperature - - Respiratory Rate - - Oxygen Saturation - - Inhaled Oxygen Concentration - - Weight 100.2 kg (221 lb) 06/19/2022 9:46 AM CDT Height 154.9 cm (5' 1 ) 06/19/2022 9:46 AM CDT Body Mass Index 41.76 06/19/2022 9:46 AM CDT documented in this encounter Progress Notes * Jody Durán NP - 06/19/2022 9:45 AM CDT NAME: Lindsay Pedersen : 1955 DATE: 06/19/2022 REFERRING MD: Amina Mccray NP CHIEF COMPLAINT: Evaluation of right breast skin lesion. HISTORY OF PRESENT ILLNESS: Lindsay Pedersen is a 67 y.o. woman with a history of a left intraductal papilloma excision who is here for evaluation of a right breast skin lesion. We had also been following her f for right axillary lymphadenopathy after a spider by which resolved. She does also have a notable family history of breast cancer in that her sister was diagnosed with breast cancer before the age of 50. She also has a paternal aunt that was diagnosed with breast cancer in her 30's and succumbed from this disease. The patient states that in January she noticed a painful reddened superficial lump in the inferior right breast. She was evaluated at an outside institution and prescribed antibiotics. She states that the area ruptured and drained a purulent fluid and the redness has sinceresolved. She presents today for evaluation. She states that she does want this area surgically removed as it had been quite painful when infected. She otherwise denies any changes to the appearance of her breasts or the skin of her breasts. She denies nipple discharge bilaterally. She has no othersystemic complaints and states that she is feeling well today. Please note that her past medical history, surgical history, medications, allergies, review of systems, family history, and social history were all reviewed with her again today. Past Medical History: Diagnosis Date Benign neoplasm of breast Blood in urine Hypertension Proteinuria History reviewed. No pertinent surgical history. Prior to Admission medications Medication Sig Start Date End Date Taking? Authorizing Provider Accu-Chek Guide test strips strip USE ONE STRIP TO CHECK GLUCOSE DAILY 04/29/22 Yes Lorena Alvarez MD Accu-Chek Softclix Lancets lancets USE TO CHECK GLUCOSE ONCE DAILY 04/29/22 Yes Lorena Alvarez MD amLODIPine (NORVASC) 10 mg tablet Take 10 mg by mouth. Yes Lorena Alvarez MD atorvastatin (LIPITOR) 20 mg tablet Take 20 mg by mouth nightly 10/20/21 Yes Lorena Alvarez MD bisacodyL (DULCOLAX) 10 mg suppository Insert 1 suppository (10 mg total) into the rectum daily 05/13/22 Yes Jude Rhoades MD hydroCHLOROthiazide (HYDRODIURIL) 12.5 mg tablet Take 12.5 mg by mouth daily 12/21/19 Yes Lorena Alvarez MD losartan (COZAAR) 100 mg tablet TK 1 T PO QD 02/23/18 Yes Lorena Alvarez MD Trulicity 1.5 mg/0.5 mL pen injector INJECT 0.5 ML SUBCUTANEOUSLY EVERY 7 DAYS 06/02/22 Yes Lorena Alvarez MD Allergies Allergen Reactions No Known Allergies Other (See comments) Reaction: Social History Tobacco Use Smoking status: Never Passive exposure: Past Smokeless tobacco: Never Substance and Sexual Activity Drug use: No Sexual activity: None Alcohol Use: Not on file Family History Problem Relation Age of Onset Breast cancer Sister Adenocarcinoma of breast - (Added by TW Conv) Breast cancer Father's Sister REVIEW OF SYSTEMS: Please see HPI. The patient's review of systems were reviewed as per the chart today and no other findings were noted. The patient's past medical history, social history, and family history are listed on their questionnaire and has been reviewed and can be found in the chart. PHYSICAL EXAMINATION: GENERAL: She is a well-developed, well-nourished woman in no acute distress. HEENT: Within normal limits. NECK: Neck is supple without lymphadenopathy or thyromegaly. LUNGS: Non-labored. HEART: Regular. ABDOMEN: Soft without organomegaly. EXTREMITIES: Warm without edema. NEUROLOGICAL: She is alert and oriented x 3. BREAST EXAMINATION: Bilateral breast examination reveals normal ptotic breasts bilaterally. Examination of the right breast a 5 mm intradermal lesion located at the 6 o'clock position along the inframammary fold consistent with an epidermal inclusion cyst at the patient's palpable area of concern. There is no associated drainage or erythema. Both breasts are without any dominant masses, skin changes, nipple discharge, or axillary adenopathy. Noted is a < 1 cm, somewhat superficial, firm, non-tender nodule in the left axilla that is stable and consistent with an epidermal inclusion cyst. IMAGING: I personally reviewed all of the imaging today. On 01/09/2022 she underwent a bilateral screening mammogram which was given a BI-RADS category one, negative. Today she underwent a right diagnostic mammogram and a right breast ultrasound which was given a BI-RADS category 2, benign: EXAMINATION: RIGHT UNILATERAL DIGITAL DIAGNOSTIC MAMMOGRAM AND [...] RIGHT breast was performed by a trained seat cover maker and by Gala . BREAST PARENCHYMAL COMPOSITION: [...] it. Electronically signed by: Zulay Cedeño MD IMPRESSION/RECOMMENDATION: Lindsay Pedersen is a 67 y.o. woman who presents today for evaluation of aright breast lesion. I reviewed the clinical and imaging findings with her today. I explained that they are consistent with an epidermal inclusion cyst, which had recently been treated with antibiotics with resolution of the erythema and significant tenderness. She would like to undergo excision ofthis lesion as it is in an area rubbed on by her bra. She has seen Dr. Pickard in the past so I will arrange for her to meet with him to discuss. Of note, she will be due for her yearly visit and bilateral screening mammograms in December 2022. Jody Durán NP Portions of this note were dictated using The [employer] website Fluency Direct speech recognition software. Please excuse any fiberglass roving winder errors. Cosigned by Steven Pickard MD at 06/26/2022 11:14 AM CDT documented in this encounter Plan of Treatment Not on file documented as of this encounter Visit Diagnoses Diagnosis Skin lesion of breast- Primary Breast cyst, right documented in this encounter Discontinued Medications Medication Sig Discontinue Reason Start Date End Da te metFORMIN (GLUCOPHAGE) 500 mg tablet TK 1 T PO QHS 03/02/2018 06/19/2022 Linzess 72 mcg capsule TAKE 1 CAPSULE BY MOUTH ONCE DAILY ON AN EMPTY STOMACH AT LEAST 30 MINUTES BEFORE 1ST MEAL OF THE DAY 11/23/2021 06/19/2022 ergocalciferol (VITAMIN D) 50,000 unit capsule TK 1 C PO ONCE WEEKLY WITH A LARGE MEAL 02/25/2018 06/19/2022 polyethylene glycol (MIRALAX) 17 gram packetIndications:con stipation Take 1 packet (17 g total) by mouth daily for 3 days 05/13/2022 06/19/2022 sAXagliptin (ONGLYZA) 2.5 mg tablet Take 2.5 mg by mouth daily 10/17/2018 06/19/2022 magnesium citrate solution Take 296 mL by mouth once for 1 dose 05/13/2022 06/19/2022 Trulicity 0.75 mg/0.5 mL pen injector INJECT 0.5 MILLILITER (0.75MG) BY SUBCUTANEOUS ROUTE EVERY 7 DAYS 12/21/2021 06/19/2022 documented as of this encounter Historical Medications * This list may reflect changes made after this encounter. Accu-Chek Guide test strips strip USE ONE STRIP TO CHECK GLUCOSE DAILY 04/29/2022 Accu-Chek Softclix Lancets lancets USE TO CHECK GLUCOSE ONCE DAILY 04/29/2022 Trulicity 1.5 mg/0.5 mL pen injector INJECT 0.5 ML SUBCUTANEOUSLY EVERY 7 DAYS 06/02/2022 4 added in this encounter Orders Outpatient Referral Count Last Ordered Date Fir st Ordered Date AMB REFERRAL TO SURGICAL ONCOLOGY 1 023 documented in this encounter Care Teams Project Economist Relationship Specialty Start Date End Date Fidencio French MD [address] [place] [address] PCP - General Internal Medicine 06/12/22 documented as of this encounter
--- OUTSIDE RECORDS SUMMARY | 2024-03-23 01:51 | XMS_ITS | Encounter Summary ---
Author Organization [facility] Address [address] [facility] [address] [place] [address] Care Team Providers Care Od Grinder Operator Name Role Phone Fidencio French MD Primary Care Provider [phone] Reason for Referral * Consultation (Routine) - Closed Specialty Diagnoses / Procedures Referred By Kirt carvalho Referred To Contact Occupational Therapy Diagnoses Lymphedema Acute medial meniscus tear of right knee, initial encounter Kamar Gandara DO [address] [facility] [address] [place] [address] Phone: tel: fax: External Order Referral ID Status Reason Start Date Expiration Date V isits Requested Visits Authorized [id number] Closed Specialty Services Required 09/12/2022 10/12/2023 24 24 Question Answer PTRFR OT Evaluate and Treat Therapy options discussed with patient? Yes Location provided for therapy services is: Patient requested/Patient preferred Please select the performing region: External Order [171] # of visits: 24 Comments Lymphedema Evaluate and treat [employer] [facility] P ) [phone] F ) [phone] Reason for Visit * Reason Onset Date Comments referral needed 09/12/2022 Encounter Details Date Type Department Care Team ([facility] st Contact Info) Description 09/12/2022 Telephone [facility] Orthopedics and Sports Medicine [address] [facility] [address] [place] [address] Kamar Gandara DO [address] [facility] [place] [address] referral needed Social History Tobacco Use Types Packs/Day Years Used Date Smoking Tobacco: Never Passive Smoke Exposure: Past Smokeless Tobacco: Never Alcohol Use Standard Drinks/Week Comments No 0 (1 standard drink = 0.6 oz pur e alcohol) Comments Unknown Sex and Gender Information Value Date Recorded Sex Assigned at Not on file 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 [facility] Please call patient when referral has been sent documented in this encounter Plan of Treatment Scheduled Referrals Name Type Priority Associated Diagnoses Order Schedule Ambulatory referral order to Occupational Therapy - Outpatient Referral Routine Lymphedema Acute medial meniscus tear of right knee, initial encounter Expected: 09/26/2022 (Approximate), Expires: 09/13/2023 documented as of this encounter Visit Diagnoses Diagnosis Lymphedema- Primary Other noninfectious lymphedema Acute medial meniscus tear of right knee, initial encounter documented in this encounter Care Teams Od Grinder Operator Relationship Specialty Start Date End Date Fidencio French MD [address] [place] [address] PCP - General Internal Medicine 06/12/22 documented as of this encounter
--- OUTSIDE RECORDS SUMMARY | 2024-03-23 01:51 | XMS_ITS | Encounter Summary ---
Author Organization [facility] Address [address] [place] [address] Care Team Providers Care Ore Tester Name Role Phone Fidencio French MD Primary Care Provider [phone] Reason for Visit * Reason Comments PT Treatment * Physical Therapy (Routine) - Closed Specialty Diagnoses / Procedures Referred By Kirt t Referred To Contact Physical Therapy Diagnoses Acute medial meniscus tear of right knee, initial encounter Kamar Gandara DO [address] [address] Phone: tel: fax: [facility] OP Physical Therapy [address] [place] [address] Phone: tel: fax: Referral ID Status Reason Start Date Expiration Date V isits Requested Visits Authorized [id number] Closed Specialty Services Required 12/09/2022 03/23/2023 12 99 Encounter Details Date Type Department Care Team (Late st Contact Info) Description 12/17/2022 2:15 PM CDT Therapy [facility] Physical Therapy [address] [place] [address] Julieta Sue, BOTTLE PACKING MACHINE CLEANER Acute medial meniscus tear of right knee, [...] on file 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 Acute [...] Date Date Date Date Date 12-09-22 12/17/22 Visit Number 1 2 ADDITIONAL HEP SHEETS ISSUED Nu Step or Recumbent bike Level 4 for 5 minutes Incline Stretch Hamstring Stretch 3x 10 sec 3 x 30 sec hold 3 x 30 sec hold TKE manual stretch QS with TKE with blue fit ball 20x STM for swelling control Mat Table: SLR CLAMS BRIDGES SAQ HAMSTRING CURLS 10X 10X 10X 10x 2 each Stair Training Leg Press Hip Machine // bars: side steps, toe taps, heel raises, hip abd, hip ext, romberg, tandem, SL, etc IFC with ice Next visit IFC/CP right knee Progress Note/Re-Cert documented in this encounter Plan of Treatment Not on file documented as of this encounter Visit Diagnoses Diagnosis Acute medial meniscus tear of right knee, initial encounter- Primary documented in this encounter Care Teams Ore Tester Relationship Specialty Start Date End Date Fidencio French MD [address] [place] [address] PCP - General Internal Medicine 06/12/22 documented as of this encounter
--- OUTSIDE RECORDS SUMMARY | 2024-03-23 01:51 | XMS_ITS | Encounter Summary ---
Author Organization [facility] Address [address] [facility] [address] [place] [address] Care Team Providers Care Forming Press Operator Name Role Phone Fidencio French MD Primary Care Provider [phone] Encounter Details Date Type Department Care Team (Late st Contact Info) Description 11/28/2022 Telephone [facility] Orthopedics and Sports Medicine [address] [address] Kamar Gandara [address] [place] [address] Social History Tobacco Use Types Packs/Day Years Used Date Smoking Tobacco: Never Passive Smoke Exposure: Past Smokeless Tobacco: Never Alcohol Use Standard Drinks/Week Comments No 0 (1 standard drink = 0.6 oz pur e alcohol) Comments Unknown Sex and Gender Information Value Date Recorded Sex Assigned at Not on file 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 TOLD HER I WILL ADD THE LEFT KNEE TO HER APT ON 12/12. * Telephone Encounter - Amie Gandara - 11/28/2022 9:32 AM CDT PATIENT IS COMING IN 12/12/22 AND 12/19/22 AND 12/26/22 FOR SYNVISC X3 INJECTIONS IN HER RT KNEE. SHE IS REQUESTING IF SHE CAN ALSO GET THE LEFT KNEE EVALUATED AND REQUESTING CAN SHE ALSO GET PHYSICAL THERAPY ON HER LEFT KNEE. SHE STARTS PHYSICAL THERAPY ON HER RT KNEE 12/09/22 PLEASE CALL PATIENT BACK documented in this encounter Plan of Treatment Not on file documented as of this encounter Visit Diagnoses Not on filedocumented in this encounter Care Teams Forming Press Operator Relationship Specialty Start Date End Date Fidencio French MD [address] [place] [address] PCP - General Internal Medicine 06/12/22 documented as of this encounter
--- OUTSIDE RECORDS SUMMARY | 2024-03-23 01:51 | XMS_ITS | Encounter Summary ---
Author Organization [facility] Healthcare Address [address] [place] [address] Care Team Providers Care Cobol Programmer Name Role Phone Fidencio French MD Primary Care Provider [phone] Reason for Visit * Reason Comments OT Treatment * Consultation (Routine) - Closed Specialty Diagnoses / Procedures Referred By Kirt carvalho Referred To Contact Occupational Therapy Diagnoses Lymphedema Acute medial meniscus tear of right knee, initial encounter Kamar Gandara DO [address] [facility] [address] [address] Phone: tel: fax: External Order Referral ID Status Reason Start Date Expiration Date V isits Requested Visits Authorized [id number] Closed Specialty Services Required 09/12/2022 10/12/2023 24 24 Encounter Details Date Type Department Care Team (Late st Contact Info) Description 09/26/2022 7:30 AM CDT Therapy [facility] Occupational Therapy [address] [place] [address] Venessa Haskins, OT Lymphedema (Primary Dx) Social History Tobacco Use Types Packs/Day Years Used Date Smoking Tobacco: Never Passive Smoke Exposure: Past Smokeless Tobacco: Never Alcohol Use Standard Drinks/Week Comments No 0 (1 standard drink = 0.6 oz pur e alcohol) Comments Unknown Sex and Gender Information Value Date Recorded Sex Assigned at Not on file 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 OT Daily Treatment Note Lindsay Pedersen 1955 Subjective: Patient brought in leggings she purchased from [employer] and thigh reduction kit fromprevious therapy sessions. Patient states the thigh reduction kit would frequently fall down. Pain: 0 Objective: No measurements taken this [...] Around knee cap 39 Treatment Provided: Therapist reviews POC. Therapist observes thigh reduction kit and dakick leggings. Leggings are not medical grade compression. Therapist explained this to patient. MLD- Therapist completes MLD sequence for unilateral [...] leg for wound and infection prevention. Plan: continue POC Patient to keep compression bandages and reduction kit on R leg at all times. Patient to remove bandages and reduction kit if she experiences pain that does not resolve with ambulation, numbness/tingling in toes, and/or shortness of breath. Start Time: 729 End Time: 814 Venessa Haskins OT documented in this encounter Plan of Treatment Not on file documented as of this encounter Visit Diagnoses Diagnosis Lymphedema- Primary Other noninfectious lymphedema documented in this encounter Care Teams Cobol Programmer Relationship Specialty Start Date End Date Fidencio French MD [address] [place] [address] PCP - General Internal Medicine 06/12/22 documented as of this encounter
--- OUTSIDE RECORDS SUMMARY | 2024-03-23 01:51 | XMS_ITS | Encounter Summary ---
Author Organization [facility] Address [address] [place] [address] Care Team Providers Care Cosmetic Sales Advisor Name Role Phone ShaziaBegumica Emily TOMLINSON Primary Care Provider [phone] Reason for Referral * Diagnostic Imaging (Routine) - Closed Specialty Diagnoses / Procedures Referred By Contac t Referred To Contact Diagnoses Acute medial meniscus tear of right knee, initial encounter Procedures XR Knee Right 3 Views Kamar Gandara DO [address] [facility] [address] [place] [address] Phone: tel: fax: [address] [phone] Referral ID Status Reason Start Date Expiration Date Visits Re quested Visits Authorized [id number] Closed 04/04/2022 05/04/2023 1 1 DER FRAME TENDER * Diagnostic Imaging (Routine) - Closed Specialty Diagnoses / Procedures Referred By Conttyron t Referred To Contact Diagnoses Acute medial meniscus tear of right knee, initial encounter Procedures XR Femur Right 2 or More Views Kamar Gandara DO [address] [facility] [address] [place] [address] Phone: tel: fax: [address] [phone] Referral ID Status Reason Start Date Expiration Date Visits Re quested Visits Authorized [id number] Closed 04/04/2022 05/04/2023 1 1 DER FRAME TENDER Reason for Visit * Diagnostic Imaging (Routine) - Closed Specialty Diagnoses / Procedures Referred By Kirt carvalho Referred To Contact Diagnoses Acute medial meniscus tear of right knee, initial encounter Procedures XR Knee Right 3 Views Kamar Gandara DO [address] [facility] [address] Phone: tel: fax: [address] [phone] Referral ID Status Reason Start Date Expiration Date Visits Re quested Visits Authorized [id number] Closed 04/04/2022 05/04/2023 1 1 Encounter Details Date Type Department Care Team (Latest Contact Info) Description 04/04/2022 11:25 AM SPEEDER FRAME TENDER - 04/04/2022 11:59 PM SPEEDER FRAME TENDER Hospital Encounter [facility] 1 DIAG IMG [address] [place] [address] Acute medial meniscus tear of right knee, initial encounter Discharge Disposition: Discharge to home or self care Social History Tobacco Use Types Packs/Day Years Used Date Smoking Tobacco: Never Smokeless Tobacco: Never Alcohol Use Standard Drinks/Week Comments No 0 (1 standard drink = 0.6 oz pur e alcohol) Comments Unknown Sex and Gender Information Value Date Recorded Sex Assigned at Not on file Legal Sex Female 5:35 PM SPEEDER FRAME TENDER Gender Identity Not on file Sexual [...] WEEKLY WITH A LARGE MEAL 1 02/25/2018 hydroCHLOROthiaz adrianna (HYDRODIURIL) 12.5 mg tablet Take [...] Name Priority Date/Time Associated Diagnosis Comments XR FEMUR RIGHT 2 OR MORE VIEWS Schedule Routine, Read Routine (OP Routine) 04/04/2022 11:45 AM SPEEDER FRAME TENDER Acute medial meniscus tear of right knee, initial encounter XR KNEE RIGHT 3 VIEWS Schedule Routine, Read Routine (OP Routine) 04/04/2022 11:45 AM SPEEDER FRAME TENDER Acute medial meniscus tear of right knee, initial encounter documented in this encounter Results * XR Knee Right 3 Views (04/04/2022 11:45 AM SPEEDER FRAME TENDER) Anatomical Region Laterality Modality Lower Extremities, Knee Right Computed Radiography 04/05/2022 9:13 AM SPEEDER FRAME TENDER Narrative 04/05/2022 9:14 AM SPEEDER FRAME TENDER EXAM DESCRIPTION: XR FEMUR RIGHT 2 OR [...] 9:14 AM - Electronically signed by ??Kwesi TRIPATHI: DEUCE D: ??04/05/2022 9:14 AM T: ??04/05/2022 9:14 AM Report ID: [id number] Reading Location: ??[id number] Procedure Note Kwesi Keslser MD - 04/05/2022 EXAM DESCRIPTION: XR FEMUR [...] 9:14 AM - Electronically signed by Kwesi TRIPATHI: DEUCE Report ID: [id number] Reading Location: [id number] Kamar Gandara DO IMG XR PROCEDURES Final Result * XR Femur Right 2 or More Views (04/04/2022 11:45 AM SPEEDER FRAME TENDER) Anatomical Region Laterality Modality Lower Extremities, Thigh, Femur Right Computed Radiography 04/05/2022 9:13 AM SPEEDER FRAME TENDER Narrative 04/05/2022 9:14 AM SPEEDER FRAME TENDER EXAM DESCRIPTION: XR FEMUR RIGHT 2 OR [...] AM T: ??04/05/2022 9:14 AM Report ID: [id number] Reading Location: ??[id number] Procedure Note Kwesi Kessler MD - 04/05/2022 [...] Kwesi Kessler M.D. MF: DEUCE Report ID: [id number] Reading Location: [id number] us Kamar Gandara DO IMG XR PROCEDURES Final Result documented in this encounter Visit Diagnoses Diagnosis Acute medial meniscus tear of right knee, initial encounter documented in this encounter Care Teams Cosmetic Sales Advisor Relationship Specialty Start Date End Date Amina Mccray STOKER MECHANIC PCP - General Nurse Practitioner 10/04/21 06/11/22 documented as of this encounter
--- OUTSIDE RECORDS SUMMARY | 2024-03-23 01:51 | XMS_ITS | Encounter Summary ---
Author Organization [facility] Healthcare Address [address] [place] [address] Care Team Providers Care Agricultural Service Technician Name Role Phone Fidencio French MD Primary Care Provider [phone] Reason for Visit * Reason Comments OT Treatment * Consultation (Routine) - Closed Specialty Diagnoses / Procedures Referred By Kirt carvalho Referred To Contact Occupational Therapy Diagnoses Lymphedema Acute medial meniscus tear of right knee, initial encounter Kamar Gandara DO [address] [facility] [address] [address] Phone: tel: fax: External Order Referral ID Status Reason Start Date Expiration Date V isits Requested Visits Authorized [id number] Closed Specialty Services Required 09/12/2022 10/12/2023 24 24 Encounter Details Date Type Department Care Team (Late st Contact Info) Description 11/11/2022 9:15 AM CDT Therapy [facility] Occupational Therapy [address] [place] [address] Ivet Estrada COTA Lymphedema (Primary Dx) Social History Tobacco Use Types Packs/Day Years Used Date Smoking Tobacco: Never Passive Smoke Exposure: Past Smokeless Tobacco: Never Alcohol Use Standard Drinks/Week Comments No 0 (1 standard drink = 0.6 oz pur e alcohol) Comments Unknown Sex and Gender Information Value Date Recorded Sex Assigned at Not on file 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 Pain: 0 Objective: R-LE circumferential measurements (measured [...] showered this morning and put on lotion. MLD- Not completed this date, due to time constraints with fitting Knee reduction kit Compression- Therapist bandages R LE to the knee using stockinette, artiflex padding, silveira foam piece at anterior ankle crease and short stretch bandages (6 cm, 8 cm, 10 cm and 12 cm). Reduction kit applied to R-Knee, therapist fitted kit to her knee and made adjustments. Reduction kit supplied by Julieta De León. Therapist applies R thigh reduction kit. Assessment: Pt is making good progress with CDT. Patient to return for CDT to decongest R leg for wound and infection prevention. Plan::Continue per POC Patient to keep compression bandages and reduction kits on R leg at all times. Patient [...] lymphedema documented in this encounter Care Teams Agricultural Service Technician Relationship Specialty [place] [address] [place] [address] PCP - General Internal Medicine 06/12/22 documented as of this encounter
--- OUTSIDE RECORDS SUMMARY | 2024-03-23 01:51 | XMS_ITS | Encounter Summary ---
Author Organization [facility] Address [address] [facility] [address] [place] [address] Care Team Providers Care Skin Lifter Bacon Name Role Phone ShaziaTrinidadAmina Emily DAVI Primary Care Provider [phone] Reason for Referral * Procedure (Routine) - Closed Specialty Diagnoses / Procedures Referred By Kirt t Referred To Contact Diagnoses Acute medial meniscus tear of right knee, initial encounter Procedures Large Joint (Hip, Knee, Shoulder) Injection: R knee Kamar Gandara DO [address] [facility] [address] [place] [address] Phone: tel: fax: [facility] Referral ID Status Reason Start Date Expiration Date Visits Re quested Visits Authorized [id number] Closed 04/18/2022 05/18/2023 1 1 RATORY ANALYST Reason for Visit * Reason Comments Injections Encounter Details Date Type Department Care Team (Latest Contact Info) Description 04/18/2022 11:45 AM LABORATORY ANALYST Clinical Support [facility] Medical [facility] [address] [place] [address] [address] [place] [address] Kamar Gandara DO [address] [facility] [place] [address] Acute medial meniscus tear of right knee, initial encounter (Primary Dx) Social History Tobacco Use Types Packs/Day Years Used Date Smoking Tobacco: Never Smokeless Tobacco: Never Alcohol Use Standard Drinks/Week Comments No 0 (1 standard drink = 0.6 oz pur e alcohol) Comments Unknown Sex and Gender Information Value Date Recorded Sex Assigned at Not on file 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 FOLLOW UP PATIENT VISIT Subjective CHIEF COMPLAINT She had concerns including Injections of the Right Knee. HISTORY OF PRESENT ILLINESS Patient returns for re-evaluation of her right knee. She is here today for her 3rd injection. She denies any acute issues. Objective PHYSICAL EXAM There were no vitals taken for this visit. Exam of the right knee unchanged. No signs of infection REVIEW OF X-RAYS/STUDIES/LABS No new x-rays Diagnoses and all orders for this visit: Acute medial meniscus tear of right knee, initial encounter (Primary) Plan: Right knee injected with viscosupplementation. Tolerated well. Follow up with me p.r.n.. Large Joint (Hip, Knee, Shoulder) Injection: R knee Performed by: Kamar Gandara DO Authorized by: Kamar Gandara DO Large Joint Injection/Aspiration: Verbal consent obtained: Yes Procedure Details: Location: Knee Site: R knee Prep: patient was prepped using a clean technique Medications: 16 mg hylan g-f 20 16 mg/2 mL Patient tolerance: Patient tolerated the procedure well with no immediate complications Kamar Gandara DO RATORY ANALYST documented in this encounter Plan of Treatment Not on file documented as of this encounter Procedures Procedure Name Priority Date/Time Associated Diagnosis Comments PA ARTHROCENTESIS ASPIR&/INJ MAJOR JT/BURSA W/O US Routine 04/18/2022 11:45 AM LABORATORY ANALYST Acute medial meniscus tear of right knee, initial encounter documented in this encounter Results * PA ARTHROCENTESIS ASPIR&/INJ MAJOR JT/BURSA W/O US (04/18/2022 11:45 AM LABORATORY ANALYST) Narrative Kamar Gandara DO - 04/18/2022 11:45 AM LABORATORY ANALYST Kamar Gandara, DO ? 04/18/2022 12:04 PM Large Joint (Hip, Knee, Shoulder) Injection: [...] initial encounter- Primary documented in this encounter Administered Medications Inactive Administered Medications - up to 3 most recent administrations Medication Order MAR Action Action Date Dose Rate Site hylan g-f 20 (SYNVISC) 16 mg/2 mL injection 16 mg 16 mg, intra-articular, One-Time Injection, Starting on Lorie 04/18/22 at 1204, For 1 dose, Indications: Osteoarthritis of the KneeIndications:Osteoarthritis of the Knee Given 04/18/2022 12:04 PM LABORATORY ANALYST 16 mg Right Knee documented in this encounter Care Teams Skin Lifter Bacon Relationship Specialty Start Date End Date Amina Mccray NP PCP - General Nurse Practitioner 10/04/21 06/11/22 documented as of this encounter
--- OUTSIDE RECORDS SUMMARY | 2024-03-23 01:51 | XMS_ITS | Encounter Summary ---
Author Organization [facility] Healthcare Address [address] [place] [address] Care Team Providers Care Inset Cutter Name Role Phone Fidencio French MD Primary Care Provider [phone] Reason for Visit * Reason Comments OT Treatment * Consultation (Routine) - Closed Specialty Diagnoses / Procedures Referred By Kirt carvalho Referred To Contact Occupational Therapy Diagnoses Lymphedema Acute medial meniscus tear of right knee, initial encounter Kamar Gandara DO [address] [facility] [address] [address] Phone: tel: fax: External Order Referral ID Status Reason Start Date Expiration Date V isits Requested Visits Authorized [id number] Closed Specialty Services Required 09/12/2022 10/12/2023 24 24 Encounter Details Date Type Department Care Team (Late st Contact Info) Description 11/08/2022 9:45 AM CDT Therapy [facility] Occupational Therapy [address] [place] [address] Elo Rodriguez OT [address] [place] [address] Lymphedema (Primary Dx) Social History Tobacco Use Types Packs/Day Years Used Date Smoking Tobacco: Never Passive Smoke Exposure: Past Smokeless Tobacco: Never Alcohol Use Standard Drinks/Week Comments No 0 (1 standard drink = 0.6 oz pur e alcohol) Comments Unknown Sex and Gender Information Value Date Recorded Sex Assigned at Not on file 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 She is returning to her MD on the to determine if she is going to have surgery. Objective: No objective measurements were taken this date. Treatment Provided: Discussed plan of care with patient. Skin care- patient showered this morning and put on lotion. Compression- Therapist bandages R LE slightly over the knee using stockinette, artiflex padding, silveira foam piece at anterior ankle crease and short stretch bandages (6 cm, 8 cm, 10 cm and 2- 12 cm). Therapist applies R thigh reduction kit. Assessment: Pt is making good progress with CDT. Patient to return for CDT to decongest R leg for wound and infection prevention. Plan: Patient to return to therapy to continue plan of care. Patient to come to therapy twice a week nextweek. She will then return for one more appointment the following we before returning to the MD to see about having knee surgery. Start Time: 9:45 AM End Time: 10:20 AM Elo Rodriguez OTR/L documented in this encounter Plan of Treatment Not on file documented as of this encounter Visit Diagnoses Diagnosis Lymphedema- Primary Other noninfectious lymphedema documented in this encounter Care Teams Inset Cutter Relationship Specialty Start Date End Date Fidencio French MD [address] [place] [address] PCP - General Internal Medicine 06/12/22 documented as of this encounter
--- OUTSIDE RECORDS SUMMARY | 2024-03-23 01:51 | XMS_ITS | Encounter Summary ---
Author Organization [facility] Healthcare Address [address] [place] [address] Care Team Providers Care Color Tester Name Role Phone Fidencio French MD Primary Care Provider [phone] Reason for Referral * Diagnostic Imaging (Routine) - Closed Specialty Diagnoses / Procedures Referred By Contac t Referred To Contact Diagnoses Postmenopausal state Procedures Dexa Axial Skeleton Bone Density 1 or 2 Site Amina Mccray NP [address] [place] [address] Phone: tel: fax: [address] [phone] Referral ID Status Reason Start Date Expiration Date Visits Re quested Visits Authorized [id number] Closed 03/11/2022 04/10/2023 1 1 Reason for Visit * Diagnostic Imaging (Routine) - Closed Specialty Diagnoses / Procedures Referred By Contac t Referred To Contact Diagnoses Postmenopausal state Procedures Dexa Axial Skeleton Bone Density 1 or 2 Site Amina Mccray NP [facility] [place] [address] Phone: tel: fax: [address] [phone] Referral ID Status Reason Start Date Expiration Date Visits Re quested Visits Authorized [id number] Closed 03/11/2022 04/10/2023 1 1 Encounter Details Date Type Department Care Team (Latest Contact Info) Description 09/23/2022 9:18 AM CDT - 09/23/2022 11:59 PM CDT Hospital Encounter 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 ??History of hysterectomy. ? Rn Family/Model: [employer] A (S/N [id number]) CLINICAL INFORMATION: Current height: ??62 ??inches ? [...] Electronically signed by ??Sushila Quintero M.D. TW: TW D: ??09/23/2022 3:52 PM T: ??09/23/2022 3:52 PM Report ID: [id number] Reading Location: ??[id number] Procedure Note Sushila Quintero MD - 09/23/2022 EXAM DESCRIPTION: DEXA AXIAL SKELETON BONE DENSITY 1 OR MORE SITES REASON FOR STUDY: 67 y/o year old F with given history of:Postmenopausal status. Patient takes vitamin-D and calcium. History of hysterectomy. Rn Family/Model: [employer] A (S/N [id number]) CLINICAL INFORMATION: Current height: 62 inches Maximum [...] Sushila Quintero M.D. TW: TW Report ID: [id number] Reading Location: [place] [address] Amina Mccray NP IMG DXA PROCEDURES Final Result documented in this encounter Visit Diagnoses Diagnosis Postmenopausal state Asymptomatic postmenopausal status (age-related) (natural) documented in this encounter Care Teams Color Tester Relationship Specialty Start Date End Date Fidencio French MD [address] [place] [address] PCP - General Internal Medicine 06/12/22 documented as of this encounter
--- OUTSIDE RECORDS SUMMARY | 2024-03-23 01:51 | XMS_ITS | Encounter Summary ---
Author Organization [facility] Healthcare Address [address] [place] [address] Care Team Providers Care Restoration Technician Name Role Phone Fidencio French MD Primary Care Provider [phone] Reason for Visit * Reason Comments OT Treatment * Consultation (Routine) - Closed Specialty Diagnoses / Procedures Referred By Kirt carvalho Referred To Contact Occupational Therapy Diagnoses Lymphedema Acute medial meniscus tear of right knee, initial encounter Kamar Gandara DO [address] [facility] [address] [address] Phone: tel: fax: External Order Referral ID Status Reason Start Date Expiration Date V isits Requested Visits Authorized [id number] Closed Specialty Services Required 09/12/2022 10/12/2023 24 24 Encounter Details Date Type Department Care Team (Late st Contact Info) Description 10/30/2022 9:30 AM CDT Therapy [facility] Occupational Therapy [address] [place] [address] Ivet Estrada COTA Lymphedema (Primary Dx) Social History Tobacco Use Types Packs/Day Years Used Date Smoking Tobacco: Never Passive Smoke Exposure: Past Smokeless Tobacco: Never Alcohol Use Standard Drinks/Week Comments No 0 (1 standard drink = 0.6 oz pur e alcohol) Comments Unknown Sex and Gender Information Value Date Recorded Sex Assigned at Not on file 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 Occupational Therapy Visit OT Daily Treatment Note Lindsay Pedersen 1955 Subjective: Pt states that she is going to call her orthopedic doctor today as she continues to have some pain in her knee and it is causing her to wake up during the night. She states that it has been almost 6 months since she had the injections in her knee. Pain: 0 Objective: *No measurements taken this [...] Provided: Skin care- patient showered this morning, she did request lotion however. MLD- Therapist completes MLD sequence for unilateral [...] toes, and/or shortness of breath. Start Time: 9:30 End Time: 10:15 YANIRA Whitman, CLT documented in this encounter Plan of Treatment Not on file documented as of this encounter Visit Diagnoses Diagnosis Lymphedema- Primary Other noninfectious lymphedema documented in this encounter Care Teams Restoration Technician Relationship Specialty Start Date End Date Fidencio French MD [address] [place] [address] PCP - General Internal Medicine 06/12/22 documented as of this encounter
--- OUTSIDE RECORDS SUMMARY | 2024-03-23 01:51 | XMS_ITS | Encounter Summary ---
Author Organization [facility] Address [address] [place] [address] Care Team Providers Care Engraver Automatic Name Role Phone Fidencio French MD Primary Care Provider [phone] Reason for Visit * Reason Comments OT Treatment * Consultation (Routine) - Closed Specialty Diagnoses / Procedures Referred By Kirt carvalho Referred To Contact Occupational Therapy Diagnoses Lymphedema Acute medial meniscus tear of right knee, initial encounter Kamar Gandara DO [address] [facility] [address] [address] Phone: tel: fax: External Order Referral ID Status Reason Start Date Expiration Date V isits Requested Visits Authorized [id number] Closed Specialty Services Required 09/12/2022 10/12/2023 24 24 Encounter Details Date Type Department Care Team (Late st Contact Info) Description 11/18/2022 10:45 AM CDT Therapy [facility] Occupational Therapy [address] [place] [address] Elo Rodriguez OT 1 [place] [address] Lymphedema (Primary Dx); Acute medial meniscus tear of right knee, [...] on file 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 Objective: R-LE circumferential measurements (measured straight up from floor in cm) 09/25 10/02 10/07 10/09 10/18 10/28 11/18 MTP 26 21.4 20.7 nt 21 21 21 heel 33 30.5 28.5 nt 31.8 31 31.4 ankle 25.6 24.2 24.5 nt 26 22.5 23.2 10 cm 23.5 23 25.5 nt 23 23.3 24 20 cm 33 30 34.6 nt 34 31 33.7 30 cm 41 40.3 40 nt 41.6 42 41.2 40 cm 42 38 50.8 41.5 37 36 35.9 50 cm 65 57 51.9 52.7 56.2 56.4 60 cm 73.5 71 68 69 71.7 69.5 70 cm 82 82.7 nt 80 80.6 82.5 Around knee cap 45.3 48 43 43.7 46 43.3 43.1 Treatment Provided: Skin care- patient showered this morning, but didn't get her lotion on. Patient applied Eucerin lotion to her Right-LE. Compression- Therapist bandages Right LE slightly over the knee using stockinette, artiflex padding, silveira foam piece at anterior ankle crease and short stretch bandages (6 cm, 8 cm, 10 cm and 2- 12 cm). Therapist applies Right thigh reduction kit. Assessment: Patient is making good progress with CDT. Patient to return for CDT to decongest Right leg for wound and infection prevention. Plan: Continue per POC Patient to keep compression bandages and reduction kit on Right leg at all times. Patient to removebandages and reduction kit if she experiences pain that does not resolve with ambulation, numbness/tingling in toes, and/or shortness of breath. Start Time: 10:50 AM End Time: 11:30 AM Elo Rodriguez OTR/L documented in this encounter Plan of Treatment Not on file documented as of this encounter Visit Diagnoses Diagnosis Lymphedema- Primary Other noninfectious lymphedema Acute medial meniscus tear of right knee, initial encounter documented in this encounter Care Teams Engraver Automatic Relationship Specialty Start Date End Date Fidencio French MD [address] [place] [address] PCP - General Internal Medicine 06/12/22 documented as of this encounter
--- OUTSIDE RECORDS SUMMARY | 2024-03-23 01:51 | XMS_ITS | Encounter Summary ---
Author Organization [facility] Address [address] [place] [address] Phone Care Team Providers Care Ditch Worker Name Role Phone Fidencio French MD Primary Care Provider [phone] Reason for Referral * Diagnostic Imaging (Routine) - Closed Specialty Diagnoses / Procedures Referred By Kirt carvalho Referred To Contact Diagnoses Breast cyst, right Procedures US Breast Right Limited Jody Durán NP Phone: tel: fax: [facility] [address] [place] [address] Referral ID Status Reason Start Date Expiration Date Visits Re quested Visits Authorized [id number] Closed 06/12/2022 07/12/2023 1 1 Encounter Details Date Type Department Care Team (Late st Contact Info) Description 06/12/2022 Orders Only [facility] Surgery [address] [facility] Advanced [facility] 5th [place] [address] [place] [address] Jody Durán NP [address] [place] [address] Breast cyst, right (Primary Dx) Social History Tobacco Use Types Packs/Day Years Used Date Smoking Tobacco: Never Smokeless Tobacco: Never Alcohol Use Standard Drinks/Week Comments No 0 (1 standard drink = 0.6 oz pur e alcohol) Comments Unknown Sex and Gender Information Value Date Recorded Sex Assigned at Not on file 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 BREAST PARENCHYMAL COMPOSITION: [...] RIGHT breast was performed by a trained tacking machine operator and by Gala . BREAST PARENCHYMAL COMPOSITION: [...] this encounter Visit Diagnoses Diagnosis Breast cyst, right- Primary Breast cyst, right documented in this encounter Care Teams Ditch Worker Relationship Specialty Start Date End Date Fidencio French MD [address] [place] [address] PCP - General Internal Medicine 06/12/22 documented as of this encounter
--- OUTSIDE RECORDS SUMMARY | 2024-03-23 01:51 | XMS_ITS | Encounter Summary ---
Author Organization [facility] Address [address] [place] [address] Care Team Providers Care Cotton Classer Name Role Phone Fidencio French MD Primary Care Provider [phone] Reason for Referral * Physical Therapy (Routine) - Closed Specialty Diagnoses / Procedures Referred By Kirt carvalho Referred To Contact Physical Therapy Diagnoses Acute medial meniscus tear of right knee, initial encounter Kamar Gandara DO [address] [place] [address] Phone: tel: fax: [facility] OP Physical Therapy [address] [place] [address] Phone: tel: fax: Referral ID Status Reason Start Date Expiration Date V isits Requested Visits Authorized [id number] Closed Specialty Services Required 12/09/2022 03/23/2023 12 99 Question Answer PTRFR PT Evaluate and Treat Therapy options discussed with patient? Yes Location provided for therapy services is: Patient requested/Patient preferred Please select the performing region: [facility] [[id number]] Please select the performing department: [facility] PT [[id number]] # of visits: 24 Comments Evaluate and treat right knee pain Reason for Visit * Reason Comments Pain Encounter Details Date Type Department Care Team (Late st Contact Info) Description 11/20/2022 1:45 PM CDT Office Visit [facility] Orthopedics and Sports Medicine [address] [facility] [address] [place] [phone] Kamar Gandara DO [address] [place] [address] [address] [place] [address] Acute medial meniscus tear of right knee, initial encounter (Primary Dx); Primary osteoarthritis of right knee Social History Tobacco Use Types Packs/Day Years Used Date Smoking Tobacco: Never Passive Smoke Exposure: Past Smokeless Tobacco: Never Alcohol Use Standard Drinks/Week Comments No 0 (1 standard drink = 0.6 oz pur e alcohol) Comments Unknown Sex and Gender Information Value Date Recorded Sex Assigned at Not on file 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 FOLLOW UP PATIENT VISIT Subjective CHIEF COMPLAINT She had concerns including Pain of the Right Knee. HISTORY OF PRESENT ILLNESS Patient returns to clinic today re-evaluation of right knee. She has been physical therapy for lymphedema treatments. She is not noticed much relief from this. She continues to have pain in her rightknee. She does have a history of a meniscal tear and severe chondrosis in her medial compartment seen her prior MRI. Had viscosupplementation injections back in March and did well with these Pain Assessment Pain Assessment: 0-10 Pain Score: 5 - Moderate pain Pain Location: Knee Pain Orientation: Right Pain Frequency: Positional Aggravating Factors: Other (Comment) (at night and when wearing the wrap for lymphadema) Pain Interventions: Home medication Objective PHYSICAL EXAM Ht 154.9 cm (5' 1 ) Wt 98.4 kg (217 lb) BMI 41.00 kg/m?? Exam of the right knee shows no significant effusion today. No no significant lower extremity edema. She is able to fully extend and flex to 120??. There is tenderness along medial joint line. Ligamentously stable REVIEW OF X-RAYS/STUDIES/LABS No new x-rays Diagnoses and all orders for this visit: Acute medial meniscus tear of right knee, initial encounter (Primary) - Ambulatory referral order to Physical Therapy -; Future Primary osteoarthritis of right knee Plan: Reviewed further treatment with the patient. She does have degenerative changes in her medial compartment. She has responded well to conservative treatments in the past. We will get her authorized for viscosupplementation injections. We will change her PT order for lymphedema management to strengthening of her right lower leg and modalities for her osteoarthritis pain. Follow up with me once injections are approved. All questions addressed today. Kamar Gandara DO documented in this encounter Plan of Treatment Scheduled Referrals Name Type Priority Associated Diagnoses Order Schedule Ambulatory referral order to Physical Therapy - Outpatient Referral Routine Acute medial meniscus tear of right knee, initial encounter Expected: 12/04/2022 (Approximate), Expires: 11/21/2023 documented as of this encounter Visit Diagnoses Diagnosis Acute medial meniscus tear of right knee, initial encounter- Primary Primary osteoarthritis of right knee documented in this encounter Care Teams Cotton Classer Relationship Specialty [place] [address] [place] [address] PCP - General Internal Medicine 06/12/22 documented as of this encounter
--- OUTSIDE RECORDS SUMMARY | 2024-03-23 01:51 | XMS_ITS | Encounter Summary ---
Author Organization [facility] Healthcare Address [address] [place] [address] Care Team Providers Care Model Technician Name Role Phone Fidencio French MD Primary Care Provider [phone] Reason for Visit * Reason Comments PT Treatment * Physical Therapy (Routine) - Closed Specialty Diagnoses / Procedures Referred By Kirt t Referred To Contact Physical Therapy Diagnoses Acute medial meniscus tear of right knee, initial encounter Kamar Gandara DO [address] [address] Phone: tel: fax: [facility] OP Physical Therapy [address] [place] [address] Phone: tel: fax: Referral ID Status Reason Start Date Expiration Date V isits Requested Visits Authorized [id number] Closed Specialty Services Required 12/09/2022 03/23/2023 12 99 Encounter Details Date Type Department Care Team (Late st Contact Info) Description 12/25/2022 2:15 PM CDT Therapy [facility] OP Physical Therapy [address] [place] [address] Julieta Sue, LEADLIGHTER Acute medial meniscus tear of right knee, [...] on file 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 Physical Therapy Visit/Daily Note 12/25/2022 Lindsay Pedersen 1955 ICD-9-CM ICD-10-CM 1. Acute medial meniscus tear of right knee, initial encounter 836.0 S83.241A FIDENCIO FRENCH Subjective: Pt reports she joined a [employer] recently and is planning on ex regularly. Pt is reporting continued difficulty with ability to navigate stairs at home without right knee knee pain, and limited with distance with community amb due to increased bilat knee pain. Pain today is 4/10. Changes since last visit include none. Objective: Objective Measurement/Observation: Patient amb without use of an assistive device, shortened stridelength on the right , decreased stance time during gait cycle, lacking full TKE at heel strike on right Specific exercises and treatment interventions are outlined on exercise worksheet document. Treatment Performed on This Visit: Manual Therapy (body part and techniques): PROM Therapeutic Procedure/Exercise: ROM, strength, gait Modalities:IFC/CP 10 minutes HEP given:patient to cont current HEP Patient education:no Assessment: Patient tolerated today's treatment without incident. Patient demonstrates core strength, bilat lower extremity strength which is contributing to difficulty with ADL's . Patient would benefit from additional skilled therapy services and demonstrates good prognosis to achieve stated goals. Goals Addressed This Visit: STG #3 Plan: Patient would benefit from the following modification on next visit: will cont strength, ROM, for improved ADL's and community amb. Therapy will continue to address these impairments in order to progress towards functional goals. Julieta Sue PTA [facility] ATTENTION PHYSICIAN If you are unable to electronically sign this document, please print this document and sign below to certify this plan of care/treatment plan. By signing this document, I certify that I have reviewedthis plan of care and support the treatment. Please fax back to . Thank you. Provider Signature: Date: * Julieta Sue PTA - 12/25/2022 2:15 PM CDT ICD-9-CM ICD-10-CM 1. Acute [...] Date Date 12-09-22 12/17/22 12/20/22 12/23/22 12/25/22 Visit Number 1 2 3 4 5 ADDITIONAL HEP SHEETS ISSUED Took time to review TENS unit Nu Step or Recumbent bike Level 4 for 5 minutes NT Nu step level x 8 min arms and legs Nustep 8 minutes legs only Incline Stretch Hamstring Stretch 3x 10 sec 3 x 30 sec hold 3 x 30 sec hold NT time 30 sec x 3 done TKE manual stretch QS with TKE with blue fit ball 20x NT time NT 20x QS with TKE with blue fit ball STM for swelling control NT NT Mat Table: SLR CLAMS BRIDGES SAQ HAMSTRING CURLS 10X 10X 10X 10x 2 each SLR 10x SLR with ER 6x Clamshells reviewed Bridging 10x NT 20x each mat exercises Stair Training NT time NT Leg Press NT time 4 holes showing 105 lbs 10 x 1 bilat done Hip Machine NT time 45 lbs abd and flex 10 x 1 done [place] Hamstring curls 20 lbs - bilat 10 x 2 done // bars: side steps, toe taps, heel raises, hip abd, hip ext, romberg, tandem, SL, etc NT time NT IFC with ice Next visit IFC/CP right knee NT, reviewed pt's home TENS unit use Done to end session in supine - If stim with CP done Progress Note/Re-Cert documented in this encounter Plan of Treatment Not on file documented as of this encounter Visit Diagnoses Diagnosis Acute medial meniscus tear of right knee, initial encounter- Primary documented in this encounter Care Teams Model Technician Relationship Specialty Start Date End Date Fidencio French MD [address] [place] [address] PCP - General Internal Medicine 06/12/22 documented as of this encounter
--- OUTSIDE RECORDS SUMMARY | 2024-03-23 01:51 | XMS_ITS | Encounter Summary ---
Author Organization [facility] Healthcare Address [address] [place] [address] Care Team Providers Care Neurosurgery Research Director Name Role Phone Fidencio French MD Primary Care Provider [phone] Reason for Visit * Reason Comments OT Treatment * Consultation (Routine) - Closed Specialty Diagnoses / Procedures Referred By Kirt carvalho Referred To Contact Occupational Therapy Diagnoses Lymphedema Acute medial meniscus tear of right knee, initial encounter Kamar Gandara DO [address] [facility] [address] [address] Phone: tel: fax: External Order Referral ID Status Reason Start Date Expiration Date V isits Requested Visits Authorized [id number] Closed Specialty Services Required 09/12/2022 10/12/2023 24 24 Encounter Details Date Type Department Care Team (Late st Contact Info) Description 11/06/2022 9:15 AM CDT Therapy [facility] Occupational Therapy [address] [place] [address] Ivet Estrada COTA Lymphedema (Primary Dx) Social History Tobacco Use Types Packs/Day Years Used Date Smoking Tobacco: Never Passive Smoke Exposure: Past Smokeless Tobacco: Never Alcohol Use Standard Drinks/Week Comments No 0 (1 standard drink = 0.6 oz pur e alcohol) Comments Unknown Sex and Gender Information Value Date Recorded Sex Assigned at Not on file 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 Occupational Therapy Visit OT Daily Treatment Note Lindsay Pedersen 1955 Subjective: Pt stated that she removed her bandages last night so she could shower this morning. She reports that her leg feels good for the most part. She did use ice last night as her doctor recommended for her knee. Pain: 0 Objective: *No measurements [...] this morning and put on lotion. MLD- Therapist completes MLD sequence for [...] toes, and/or shortness of breath. Start Time: 9:18 End Time: 10:03 YANIRA Whitman, CLT documented in this encounter Plan of Treatment Not on file documented as of this encounter Visit Diagnoses Diagnosis Lymphedema- Primary Other noninfectious lymphedema documented in this encounter Care Teams Neurosurgery Research Director Relationship Specialty Start Date End Date Fidencio French MD [address] [place] [address] PCP - General Internal Medicine 06/12/22 documented as of this encounter
--- OUTSIDE RECORDS SUMMARY | 2024-03-23 01:51 | XMS_ITS | Encounter Summary ---
Author Organization [facility] Healthcare Address [address] [place] [address] Care Team Providers Care School Counselor Name Role Phone Fidencio French MD Primary Care Provider [phone] Reason for Visit * Reason Comments OT Treatment * Consultation (Routine) - Closed Specialty Diagnoses / Procedures Referred By Kirt carvalho Referred To Contact Occupational Therapy Diagnoses Lymphedema Acute medial meniscus tear of right knee, initial encounter Kamar Gandara DO [address] [facility] [address] [address] Phone: tel: fax: External Order Referral ID Status Reason Start Date Expiration Date V isits Requested Visits Authorized [id number] Closed Specialty Services Required 09/12/2022 10/12/2023 24 24 Encounter Details Date Type Department Care Team (Late st Contact Info) Description 10/25/2022 9:45 AM CDT Therapy [facility] Occupational Therapy [address] [place] [address] Elo Rodriguez OT [address] [place] [address] Lymphedema (Primary Dx) Social History Tobacco Use Types Packs/Day Years Used Date Smoking Tobacco: Never Passive Smoke Exposure: Past Smokeless Tobacco: Never Alcohol Use Standard Drinks/Week Comments No 0 (1 standard drink = 0.6 oz pur e alcohol) Comments Unknown Sex and Gender Information Value Date Recorded Sex Assigned at Not on file 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 She states she removed her bandages on Friday because she had to take a shower. Objective: No objective measurements were taken this date. Treatment Provided: Skin care- patient showered this [...] toes, and/or shortness of breath. Start Time: 9:45 AM End Time: 10:30 AM Elo Rodriguez OTR/L documented in this encounter Plan of Treatment Not on file documented as of this encounter Visit Diagnoses Diagnosis Lymphedema- Primary Other noninfectious lymphedema documented in this encounter Care Teams School Counselor Relationship Specialty Start Date End Date Fidencio French MD [address] [place] [address] PCP - General Internal Medicine 06/12/22 documented as of this encounter
--- OUTSIDE RECORDS SUMMARY | 2024-03-23 01:51 | XMS_ITS | Encounter Summary ---
Author Organization [facility] Address [address] [place] [address] Phone Care Team Providers Care Supervisor Mails Name Role Phone Fidencio French MD Primary Care Provider [phone] Reason for Visit * Reason Comments Follow-up Encounter Details Date Type Department Care Team (Late st Contact Info) Description 08/01/2022 2:00 PM CDT Office Visit [facility] [address] [facility] 5th [place] [address] [place] [id number] Steven Pickard MD [address] [place] [address] Chronic anemia (Primary Dx); Sebaceous cyst of left axilla Social History Tobacco Use Types Packs/Day Years Used Date Smoking Tobacco: Never Passive Smoke Exposure: Past Smokeless Tobacco: Never Tobacco Cessation:Counseling Given: Not Answered Alcohol Use Standard Drinks/Week Comments No 0 (1 standard drink = 0.6 oz pur e alcohol) Comments Unknown Sex and Gender Information Value Date Recorded Sex Assigned at Not on file 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 Gender Identity Not on file Sexual Orientation Not on file documented as of this encounter Last Filed Vital Signs Vital Sign Reading Time Taken Comments Blood Pressure - - Pulse - - Temperature - - Respiratory Rate - - Oxygen Saturation - - Inhaled Oxygen Concentration - - Weight 98.4 kg (217 lb) 08/01/2022 1:47 PM CDT Height 154.9 cm (5' 1 ) 08/01/2022 1:47 PM CDT Body Mass Index 41 08/01/2022 1:47 PM CDT documented in this encounter Progress Notes * Steven Pickard MD - 08/01/2022 2:00 PM CDT PATIENT NAME: Lindsay Pedersen DATE OF : 1955 DATE OF OFFICE VISIT: 08/01/2022 REFERRING MD: Fidencio French MD IDENTIFICATION: The patient is a 67 y.o. female with a history of left breast mammographic abnormality. 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 She now presents for evaluation of a right breast skin lesion. INTERVAL HISTORY: The patient states that in January she noticed a painful reddened superficial lump in the inferior right breast. She was evaluated at an outside institution and prescribed antibiotics. She states that the area ruptured and drained a purulent fluid and the redness has since resolved. She previously saw our nurse practitioner, Jody Durán, for evaluation and this lesion wasfavored to represent epidermal inclusion cyst. She presents today to discuss possible surgical intervention versus clinical follow-up. PAST MEDICAL HISTORY: Past Medical History: Diagnosis Date Benign neoplasm of breast Blood in urine Hypertension Proteinuria PAST SURGICAL HISTORY: History of left breast needle localization biopsy in 2016 MEDICATIONS: HOME MEDICATIONS : Accu-Chek Guide test strips strip Accu-Chek Softclix Lancets lancets amLODIPine (NORVASC) 10 mg tablet atorvastatin (LIPITOR) 20 mg tablet bisacodyL (DULCOLAX) 10 mg suppository fluticasone propionate (FLONASE) 50 mcg/actuation nasal spray hydroCHLOROthiazide (HYDRODIURIL) 12.5 mg tablet losartan (COZAAR) 100 mg tablet Trulicity 1.5 mg/0.5 mL pen injector ALLERGIES: Allergies Allergen Reactions No Known Allergies Other (See comments) Reaction: FAMILY HISTORY: Family History Problem Relation Age of Onset Breast cancer Sister Adenocarcinoma of breast - (Added by TW Conv) Breast cancer Father's Sister SOCIAL HISTORY: Social History Tobacco Use Smoking status: Never Passive exposure: Past Smokeless tobacco: Never Substance and Sexual Activity Drug use: No Sexual activity: None Alcohol Use: Not on file REVIEW OF SYSTEMS: GENERAL: Denies fevers, chills [...] positions reveal no obvious masses, orskin changes. Examination of the right breast is unremarkable. The patient identified the area of clinical concern at the 6 o'clock position of the right breast in the inframammary fold. There is no residual epidermal inclusion cyst apparent LABORATORY: Recent CMP is remarkable for creatinine 1.4 RADIOLOGY: EXAMINATION: RIGHT UNILATERAL DIGITAL DIAGNOSTIC MAMMOGRAM AND [...] RIGHT breast was performed by a trained carbon dioxide operator and by Gala . BREAST PARENCHYMAL [...] recommended. Dictated by: Janna Ledesma MD PATHOLOGY: No new pathology IMPRESSION: The patient is a 67 y.o. female with a history of right breast epidermal inclusion cyst. This appears to have completely resolved. PLAN: I had a long discussion with the patient regarding her progress to date. Her epidermal inclusion cyst appears to have completely resolved. I do not think any additional treatment is necessary. I did discuss with her that there is a small risk of recurrence. I will plan to see her back in follow-up when she is due for her next screening mammogram. I have seen and examined Lindsay Pedersen with the resident physician. We worked together to completethe office note, and I personally reviewed and edited the note. I agree with the evaluation and management plan outlined above. Steven Pickard MD documented in this encounter Plan of Treatment Not on file documented as of this encounter Visit Diagnoses Diagnosis Chronic anemia- Primary Unspecified anemia Sebaceous cyst of left axilla documented in this encounter Historical Medications * This list may reflect changes made after this encounter. fluticasone propionate (FLONASE) 50 mcg/actuation nasal spray USE 2 SPRAY(S) IN EACH NOSTRIL 1 TO 2 TIMES DAILY 07/12/2022 06/11/2023 added in this encounter Care Teams Supervisor Mails Relationship Specialty Start Date End Date Fidencio French MD [address] [place] [address] PCP - General Internal Medicine 06/12/22 documented as of this encounter
--- OUTSIDE RECORDS SUMMARY | 2024-03-23 01:51 | XMS_ITS | Encounter Summary ---
Author Organization [facility] Address [address] [place] [address] Care Team Providers Care Inside Sales Advisor Name Role Phone Fidencio French MD Primary Care Provider [phone] Reason for Visit * Reason Comments OT Treatment * Consultation (Routine) - Closed Specialty Diagnoses / Procedures Referred By Kirt carvalho Referred To Contact Occupational Therapy Diagnoses Lymphedema Acute medial meniscus tear of right knee, initial encounter Kamar Gandara DO [address] [facility] [address] [address] Phone: tel: fax: External Order Referral ID Status Reason Start Date Expiration Date V isits Requested Visits Authorized [id number] Closed Specialty Services Required 09/12/2022 10/12/2023 24 24 Encounter Details Date Type Department Care Team (Late st Contact Info) Description 11/01/2022 9:15 AM CDT Therapy [facility] Occupational Therapy [address] [place] [address] Ivet Estrada COTA Lymphedema (Primary Dx) Social History Tobacco Use Types Packs/Day Years Used Date Smoking Tobacco: Never Passive Smoke Exposure: Past Smokeless Tobacco: Never Alcohol Use Standard Drinks/Week Comments No 0 (1 standard drink = 0.6 oz pur e alcohol) Comments Unknown Sex and Gender Information Value Date Recorded Sex Assigned at Not on file 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 Occupational Therapy Visit OT Daily Treatment Note Lindsay Pedersen 1955 Subjective: Pt arrived today with bandages off, she showered this morning. She has scheduled her appointment with her orthopedic doctor for the end of this month. Pt and therapist discussed getting compression garment, she is deciding if she wants to get it in a couple of weeks, or wait until she meets with her orthopedic surgeon to determine if she is going to need knee surgery. Pain: 0 Objective: *No measurements taken this [...] toes, and/or shortness of breath. Start Time: 9:17 End Time: 10:05 YANIRA Whitman, CLT documented in this encounter Plan of Treatment Not on file documented as of this encounter Visit Diagnoses Diagnosis Lymphedema- Primary Other noninfectious lymphedema documented in this encounter Care Teams Inside Sales Advisor Relationship Specialty Start Date End Date Fidencio French MD [address] [place] [address] PCP - General Internal Medicine 06/12/22 documented as of this encounter
--- OUTSIDE RECORDS SUMMARY | 2024-03-23 01:51 | XMS_ITS | Encounter Summary ---
Author Organization [facility] Healthcare Address [address] [place] [address] Care Team Providers Care Leather Splitter Name Role Phone Fidencio French MD Primary Care Provider [phone] Reason for Visit * Reason Comments OT Treatment * Consultation (Routine) - Closed Specialty Diagnoses / Procedures Referred By Kirt carvalho Referred To Contact Occupational Therapy Diagnoses Lymphedema Acute medial meniscus tear of right knee, initial encounter Kamar Gandara DO [address] [facility] [address] [address] Phone: tel: fax: External Order Referral ID Status Reason Start Date Expiration Date V isits Requested Visits Authorized [id number] Closed Specialty Services Required 09/12/2022 10/12/2023 24 24 Encounter Details Date Type Department Care Team (Late st Contact Info) Description 10/02/2022 9:15 AM CDT Therapy [facility] Occupational Therapy [address] [place] [id number] Venessa Haskins, OT Lymphedema (Primary Dx) Social History Tobacco Use Types Packs/Day Years Used Date Smoking Tobacco: Never Passive Smoke Exposure: Past Smokeless Tobacco: Never Alcohol Use Standard Drinks/Week Comments No 0 (1 standard drink = 0.6 oz pur e alcohol) Comments Unknown Sex and Gender Information Value Date Recorded Sex Assigned at Not on file 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 OT Daily Treatment Note Lindsay Pedersen 1955 Subjective: Pt states the thigh reduction kit stayed up well since previous session. She had to re adjust it a couple times but it mostly staying in place. Patient removed all compression this morning to shower. She brought all supplies into therapy session. Pain: 0 Objective: No measurements taken this [...] thigh reduction kit. Therapist tightens kit slightly. Assessment: Patient has made good progress with CDT. Patient's R LE measurements have decreased since initial evaluation. Patient to return for CDT (Complete Decongestive [...] breath. Start Time: 9:15 End Time: 10:00 Venessa Haskins OT documented in this encounter Plan of Treatment Not on file documented as of this encounter Visit Diagnoses Diagnosis Lymphedema- Primary Other noninfectious lymphedema documented in this encounter Care Teams Leather Splitter Relationship Specialty Start Date End Date Fidencio French MD [address] [place] [address] PCP - General Internal Medicine 06/12/22 documented as of this encounter
--- OUTSIDE RECORDS SUMMARY | 2024-03-23 01:51 | XMS_ITS | Encounter Summary ---
Author Organization [facility] Address [address] [facility] [address] [place] [address] Care Team Providers Care Wood Boatbuilder Apprentice Name Role Phone ShaziaTrinidadAmina Emily DAVI Primary Care Provider [phone] Reason for Referral * Procedure (Routine) - Closed Specialty Diagnoses / Procedures Referred By Kirt t Referred To Contact Diagnoses Acute medial meniscus tear of right knee, initial encounter Procedures Large Joint (Hip, Knee, Shoulder) Injection: R knee Kamar Gandara DO [address] [facility] [address] [place] [address] Phone: tel: fax: [facility] Referral ID Status Reason Start Date Expiration Date Visits Re quested Visits Authorized [id number] Closed 04/11/2022 05/11/2023 1 1 UP MACHINE OPERATOR Encounter Details Date Type Department Care Team (Latest Contact Info) Description 04/11/2022 11:00 AM ROLL UP MACHINE OPERATOR Clinical Support [facility] Orthopedics and Sports Medicine [address] [place] [address] [address] [place] [address] Kamar Gandara DO [address] [facility] [address] [place] [address] Acute medial meniscus tear of right knee, initial encounter (Primary Dx) Social History Tobacco Use Types Packs/Day Years Used Date Smoking Tobacco: Never Smokeless Tobacco: Never Alcohol Use Standard Drinks/Week Comments No 0 (1 standard drink = 0.6 oz pur e alcohol) Comments Unknown Sex and Gender Information Value Date Recorded Sex Assigned at Not on file Legal Sex Female 5:35 PM ROLL UP MACHINE OPERATOR Gender Identity Not on file Sexual Orientation Not on file documented as of this encounter Progress Notes * Kamar Gandara DO - 04/11/2022 11:00 AM CSTAssociated Order(s): Large Joint (Hip, Knee, Shoulder) Injection: R knee Post-Procedure Diagnose(s): Acute medial meniscus tear of right knee, initial encounter Images from the original note were not included. FOLLOW UP PATIENT VISIT Subjective CHIEF COMPLAINT She had no chief complaint listed for this encounter. HISTORY OF PRESENT ILLINESS Patient returns for re-evaluation of her right knee. She is here today for injection. No acute issues. She is doing much better after her 1st injection Objective PHYSICAL EXAM There were no vitals taken for this visit. No signs of infection REVIEW OF X-RAYS/STUDIES/LABS No new x-rays Diagnoses and all orders for this visit: Acute medial meniscus tear of right knee, initial encounter (Primary) Plan: Right knee was injected with viscosupplementation. Tolerated well. Follow up with me as scheduled Large Joint (Hip, Knee, Shoulder) Injection: R knee Performed by: Kamar Gandara DO Authorized by: Kamar Gandara DO Large Joint Injection/Aspiration: Verbal consent obtained: Yes Procedure Details: Location: Knee Site: R knee Prep: patient was prepped using a clean technique Medications: 16 mg hylan g-f 20 16 mg/2 mL Patient tolerance: Patient tolerated the procedure well with no immediate complications Kamar Gandara DO UP MACHINE OPERATOR documented in this encounter Plan of Treatment Not on file documented as of this encounter Procedures Procedure Name Priority Date/Time Associated Diagnosis Comments DE ARTHROCENTESIS ASPIR&/INJ MAJOR JT/BURSA W/O US Routine 04/11/2022 11:00 AM ROLL UP MACHINE OPERATOR Acute medial meniscus tear of right knee, initial encounter documented in this encounter Results * DE ARTHROCENTESIS ASPIR&/INJ MAJOR JT/BURSA W/O US (04/11/2022 11:00 AM ROLL UP MACHINE OPERATOR) Narrative Kamar Gandara, - 04/11/2022 11:00 AM ROLL UP MACHINE OPERATOR Kamar Gandara, ? 04/11/2022 12:20 PM Large Joint (Hip, Knee, Shoulder) Injection: [...] mg, intra-articular, One-Time Injection, Starting on Lorie 04/11/22 at 1219, For 1 dose, Indications: Osteoarthritis of the KneeIndications:Osteoarthritis of the Knee Given 04/11/2022 12:19 PM ROLL UP MACHINE OPERATOR 16 mg Right Knee documented in this encounter Care Teams Wood Boatbuilder Apprentice Relationship Specialty Start Date End Date Amina Mccray NP PCP - General Nurse Practitioner 10/04/21 06/11/22 documented as of this encounter
--- OUTSIDE RECORDS SUMMARY | 2024-03-23 01:51 | XMS_ITS | Encounter Summary ---
Author Organization [facility] Healthcare Address [address] [place] [address] Care Team Providers Care Revolving Inventory Clerk Name Role Phone Fidencio French MD Primary Care Provider [phone] Reason for Visit * Reason Comments OT Treatment * Consultation (Routine) - Closed Specialty Diagnoses / Procedures Referred By Kirt carvalho Referred To Contact Occupational Therapy Diagnoses Lymphedema Acute medial meniscus tear of right knee, initial encounter Kamar Gandara DO [address] [facility] [address] [address] Phone: tel: fax: External Order Referral ID Status Reason Start Date Expiration Date V isits Requested Visits Authorized [id number] Closed Specialty Services Required 09/12/2022 10/12/2023 24 24 Encounter Details Date Type Department Care Team (Late st Contact Info) Description 10/21/2022 9:15 AM CDT Therapy [facility] Occupational Therapy [address] [place] [id number] Ivet Estrada COTA Lymphedema (Primary Dx) Social History Tobacco Use Types Packs/Day Years Used Date Smoking Tobacco: Never Passive Smoke Exposure: Past Smokeless Tobacco: Never Alcohol Use Standard Drinks/Week Comments No 0 (1 standard drink = 0.6 oz pur e alcohol) Comments Unknown Sex and Gender Information Value Date Recorded Sex Assigned at Not on file 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 Occupational Therapy Visit OT Daily Treatment Note Lindsay Pedersen 1955 Subjective: Pt reports that she kept her upper thigh reduction kit and lower leg bandaged until last night. She stated that it stayed very well. She was busy over the weekend with cleaning, laundry, and cooking activities. Pain: 0 Objective: R LE cirmcumferential measurements [...] lymphedema documented in this encounter Care Teams Revolving Inventory Clerk Relationship Specialty Start Date End Date Fidencio French MD [address] [place] [address] PCP - General Internal Medicine 06/12/22 documented as of this encounter
--- OUTSIDE RECORDS SUMMARY | 2024-03-23 01:51 | XMS_ITS | Encounter Summary ---
Author Organization [facility] Healthcare Address [address] [place] [address] Care Team Providers Care Toe Former Name Role Phone Fidencio French MD Primary Care Provider [phone] Encounter Details Date Type Department Care Team (Late st Contact Info) Description 12/09/2022 Plan of Care Documentation [facility] Physical Therapy [address] [place] [address] Social History Tobacco Use Types Packs/Day Years Used Date Smoking Tobacco: Never Passive Smoke Exposure: Past Smokeless Tobacco: Never Alcohol Use Standard Drinks/Week Comments No 0 (1 standard drink = 0.6 oz pur e alcohol) Comments Unknown Sex and Gender Information Value Date Recorded Sex Assigned at Not on file 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
--- OUTSIDE RECORDS SUMMARY | 2024-03-23 01:51 | XMS_ITS | Encounter Summary ---
Author Organization [facility] Address [address] [facility] [address] [place] [address] Care Team Providers Care Head Of Design Name Role Phone Fidencio French MD Primary Care Provider [phone] Reason for Visit * Reason Comments Pain Encounter Details Date Type Department Care Team (Late st Contact Info) Description 07/17/2022 3:00 PM CDT Office Visit [facility] Orthopedics and Sports Medicine [address] [facility] [address] [place] [id number] [place] [address] [place] [address] [address] [place], [place] [id number] Acute medial meniscus tear of right knee, [...] on file 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 FOLLOW UP PATIENT VISIT Subjective CHIEF COMPLAINT She had concerns including Pain of the Right Knee. HISTORY OF PRESENT ILLNESS Patient returns for re-evaluation of her right knee. States she is been doing better after her viscosupplementation injections. She is not complaining of any pain in her right knee today. No new injuries or trauma Objective PHYSICAL EXAM Height 154.9 cm (5' 1 ) Weight 98.6 kg (217 lb 6.4 oz) Body Mass Index 41.08 kg/m?? Exam of the right knee shows mild effusion. She is able to fully extend. Pain with deep flexion. Stable varus valgus stressing. There is increased laxity with valgus stressing compared to the left knee. Tenderness along medial joint line. Stable with anterior posterior drawer REVIEW OF X-RAYS/STUDIES/LABS No new x-rays Diagnoses and all orders for this visit: Acute medial meniscus tear of right knee, initial encounter (Primary) Plan: Discussed further treatment with the patient. Clinically she is doing well. She responded well withthe prior injections. Continue PT for lower extremity strengthening. Follow up with me pkarel. Kamar Gandara DO documented in this encounter Plan of Treatment Not on file documented as of this encounter Visit Diagnoses Diagnosis Acute medial meniscus tear of right knee, initial encounter- Primary documented in this encounter Care Teams Head Of Design Relationship Specialty Start Date End Date Fidencio French MD [address] [place] [address] PCP - General Internal Medicine 06/12/22 documented as of this encounter
--- OUTSIDE RECORDS SUMMARY | 2024-03-23 01:52 | XMS_ITS | Encounter Summary ---
Author Organization [facility] Address [address] [place] [address] Phone Care Team Providers Care Credit Negotiator Name Role Phone Bao Lyons DO Primary Care Provider [phone] Bao Lyons DO Unavailable [phone] Encounter Details Date Type Department Care Team (Late st Contact Info) Description 04/29/2019 2:00 PM MAINSPRING STRIP INSPECTOR Office Visit [facility] [address] Advanced [facility] 5th [place] [address] [place] [address] Jody Durán NP [address] [place] [address] Breast cancer screening (Primary Dx); Abnormal mammogram Social History Tobacco Use Types Packs/Day Years Used Date Smoking Tobacco: Never Smokeless Tobacco: Never Alcohol Use Standard Drinks/Week Comments No 0 (1 standard drink = 0.6 oz pur e alcohol) Comments Unknown Sex and Gender Information Value Date Recorded Sex Assigned at Not on file Legal Sex Female 5:35 PM MAINSPRING STRIP INSPECTOR Gender Identity Not on file Sexual Orientation Not on file documented as of this encounter Last Filed Vital Signs Vital Sign Reading Time Taken Comments Blood Pressure - - Pulse - - Temperature - - Respiratory Rate - - Oxygen Saturation - - Inhaled Oxygen Concentration - - Weight 98.9 kg (218 lb) 04/29/2019 2:04 PM MAINSPRING STRIP INSPECTOR Height 154.9 cm (5' 1 ) 04/29/2019 2:04 PM MAINSPRING STRIP INSPECTOR Body Mass Index 41.19 04/29/2019 2:04 PM MAINSPRING STRIP INSPECTOR documented in this encounter Progress Notes * Jody Durán, DAVI - 04/29/2019 2:00 PM CST NAME: Lindsay Pedersen : 1955 DATE: 04/29/19 CHIEF COMPLAINT: Follow up for breast cancer screening HISTORY OF PRESENT ILLNESS: Lindsay Pedersen is a 64 y.o. female who initially presented with a leftbreast mammographic abnormality. ??She??underwent a left breast needle localization biopsy on 05/14/16. 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 She does have a notable family history of breast cancer in that her sister was diagnosed with breast cancer before the age of 50. She also has a paternal aunt that was diagnosed with breast cancer in her 30's and from this disease. Ms. Pedersen returns today for her routine visit and states that she is doing well. She denies any masses in either breast. She denies any change in the appearance of her breasts or the skin of her breasts. She denies bilateral nipple discharge. She has no other systemic complaints and otherwise feels well today. ?? Please note that her past medical history, surgical history, medications, allergies, review of systems, family history, and social history were all reviewed with her again today. She has a past medical history of Benign neoplasm of breast, Blood in urine, Hypertension, and Proteinuria. Past Medical History: Diagnosis Date ??? Benign neoplasm of breast ??? Blood in urine ??? Hypertension ??? Proteinuria No past surgical history on file. Social History Socioeconomic History ??? Marital status: Spouse name: Not on file ??? Number of children: Not on file ??? Years of education: Not on file ??? Highest education level: Not on file Occupational History ??? Not on file Social Needs ??? Financial resource strain: Not on file ??? Food insecurity: Worry: Not on file Inability: Not on file ??? Transportation needs: Medical: Not on file Non-medical: Not on file Tobacco Use ??? Smoking status: Never Smoker ??? Smokeless tobacco: Never Used Substance and Sexual Activity ??? Alcohol use: No ??? Drug use: No ??? Sexual activity: Not on file Lifestyle ??? Physical activity: Days per week: Not on file Minutes per session: Not on file ??? Stress: Not on file Relationships ??? Social connections: Talks on phone: Not on file Gets together: Not on file Attends hindu service: Not on file Active member of club or organization: Not on file Attends meetings of clubs or organizations: Not on file Relationship status: Not on file ??? Intimate partner violence: Fear of current or ex partner: Not on file Emotionally abused: Not on file Physically abused: Not on file Forced sexual activity: Not on file Other Topics Concern ??? Not on file Social History Narrative ??? Not on file Family History Problem Relation Age of Onset ??? Breast cancer Sister Adenocarcinoma of breast - (Added by TW Conv) Prior to Admission medications Medication Sig Start Date End Date Taking? Authorizing Provider amLODIPine (NORVASC) 10 mg tablet Take 10 mg by mouth. Historical Provider, atorvastatin (LIPITOR) 10 mg tablet TK 1 T PO D 03/12/18 Historical Provider, ergocalciferol (VITAMIN D) 50,000 unit capsule TK 1 C PO ONCE WEEKLY WITH A LARGE MEAL 02/25/18 Historical Provider, hydroCHLOROthiazide (MICROZIDE) 12.5 mg capsule TK 1 C PO D 03/12/18 Historical Provider, losartan (COZAAR) 100 mg tablet TK 1 T PO QD 02/23/18 Historical Provider, metFORMIN (GLUCOPHAGE) 500 mg tablet TK 1 T PO QHS 03/02/18 Historical Provider, Allergies Allergen Reactions ??? No Known Allergies Other (See comments) Reaction: ROS: Pertinent items are noted in HPI. A comprehensive review of systems was negative. PHYSICAL EXAMINATION: GENERAL: She is a well-developed, well-nourished woman in no acute distress. HEENT: Within normal limits. NECK: Neck is supple without lymphadenopathy or thyromegaly. LUNGS: Respirations non-labored. HEART: Regular, warm and well-perfused. ABDOMEN: Soft without organomegaly. EXTREMITIES: Warm without edema. NEUROLOGICAL: She is alert and oriented x 3. BREAST EXAMINATION: Bilateral breast examination reveals normal ptotic breasts bilaterally. Both breasts are without any dominant masses, skin changes, nipple discharge or axillary adenopathy. IMAGING: The patient underwent bilateral screening mammograms. The final interpretation is pending and I will contact her with the imaging results when they are complete. I personally reviewed the patient's imaging today. IMPRESSION/RECOMMENDATION: Lindsay Pedersen is a 64 y.o. female with a history of intraductal papilloma, as well as a family history of breast cancer. Her clinical exam today did not reveal any abnormalities. I will contact her with her imaging results when they are complete. I have encouraged her to continue her self-examinations on a monthly basis and to alert me of any changes. I will plan to seeher back in one year, at which time she will be due for her bilateral screening mammograms. She is comfortable with this plan and will contact me if any new questions or concerns arise. Jody Durán NP ADDENDUM: Ms. Pedersen's bilateral screening mammograms were assigned a BIRADS category 0 based on an area of axillary adenopathy in the right breast requires additional evaluation. She then underwent the recommended right axillary ultrasound which should borderline prominent right axillary lymph nodes, increased over her imaging in 2017, though somewhat similar to the nodes in the left axilla. She does report a history of a recent spider bite, thus these are likely reactive. Her diagnostic imagingwas assigned a BI-RADS Category 3: Probably Benign with recommended diagnostic breast imaging in 6 months with right mediolateral oblique mammogram and right axillary ultrasound if indicated. Patientnotified of results and aware that our scheduling department will be contacting her to set up the six month follow up. ?? SPRING STRIP INSPECTOR SPRING STRIP INSPECTOR documented in this encounter Miscellaneous Notes * Addendum Note - Jody Durán NP - 04/29/2019 2:00 PM CSTAddended by: JODY DURÁN on: 05/18/2019 03:32 PM Modules accepted: Orders SPRING STRIP INSPECTOR documented in this encounter Plan of Treatment Not on file documented as of this encounter Visit Diagnoses Diagnosis Breast cancer screening- Primary Breast screening, unspecified Abnormal mammogram Abnormal mammogram, unspecified documented in this encounter Care Teams Credit Negotiator Relationship Specialty Start Date End Date Bao Lyons DO PCP - General 05/09/16 10/03/21 Bao Lyons DO 05/09/16 10/03/21 documented as of this encounter
--- OUTSIDE RECORDS SUMMARY | 2024-03-23 01:52 | XMS_ITS | Encounter Summary ---
Author Organization [facility] Address [address] [place] [address] Phone Care Team Providers Care Pet Nutrition Specialist Name Role Phone Bao Lyons DO Primary Care Provider [phone] Bao Lyons DO Unavailable [phone] Reason for Referral * Diagnostic Imaging (Routine) - Closed Specialty Diagnoses / Procedures Referred By Kirt carvalho Referred To Contact Diagnoses BI-RADS category 3 mammogram result Procedures Diagnostic Mammogram Bilateral W Prem Jody Durán NP Phone: tel: fax: [address] [address] Referral ID Status Reason Start Date Expiration Date Visits Re quested Visits Authorized [id number] Closed 12/30/2019 01/28/2021 1 1 Reason for Visit * Consultation (Routine) - Closed Specialty Diagnoses / Procedures Referred By Kirt carvalho Referred To Contact Surgical Oncology Diagnoses BI-RADS category 3 mammogram result Bao Lyons DO Phone: tel: fax: [facility] (All Locations) Referral ID Status Reason Start Date Expiration Date V isits Requested Visits Authorized [id number] Closed Specialty Services Required 12/09/2019 01/07/2021 99 99 Encounter Details Date Type Department Care Team (Late st Contact Info) Description 12/30/2019 10:00 AM CDT Office Visit [facility] Surgery [address] [place] [address] [place] [address] Jody Durán NP [address] [place] [address] Encounter for screening mammogram for malignant neoplasm of breast (Primary Dx); BI-RADS category 3 mammogram result; Sebaceous cyst of left axilla; Axillary lymphadenopathy Social History Tobacco Use Types Packs/Day Years Used Date Smoking Tobacco: Never Smokeless Tobacco: Never Alcohol Use Standard Drinks/Week Comments No 0 (1 standard drink = 0.6 oz pur e alcohol) Comments Unknown Sex and Gender Information Value Date Recorded Sex Assigned at Not on file Legal Sex Female 5:[address]OR Gender Identity Not on file Sexual Orientation Not on file documented as of this encounter Last Filed Vital Signs Vital Sign Reading Time Taken Comments Blood Pressure - - Pulse - - Temperature - - Respiratory Rate - - Oxygen Saturation - - Inhaled Oxygen Concentration - - Weight 98.9 kg (218 lb) 12/30/2019 9:56 AM CDT Height 154.9 cm (5' 1 ) 12/30/2019 9:56 AM CDT Body Mass Index 41.19 12/30/2019 9:56 AM CDT documented in this encounter Progress Notes * Jody Durán NP - 12/30/2019 10:00 AM CDT NAME: Lindsay Pedersen : 1955 DATE: 12/30/2019 CHIEF COMPLAINT: Short interval follow up on breast imaging. HISTORY OF PRESENT ILLNESS: The patient is a 64 y.o. female who initially presented with a left breast mammographic abnormality. ??She??underwent a left breast needle localization biopsy on 05/14/16. 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 She does have a notable family history of breast cancer in that her sister was diagnosed with breast cancer before the age of 50. She also has a paternal aunt that was diagnosed with breast cancer in her 30's and from this disease. Her screening mammogram in April 2019 was assigned a BI-RADS category 0 based on an area of axillary adenopathy in the right breast requires additional evaluation. She then underwent the recommended right axillary ultrasound which should borderline prominent rightaxillary lymph nodes, increased over her imaging in 2017, though somewhat similar to the nodes in the left axilla. She did report a history of a recent spider bite, thus these findings were likely reactive. She then underwent diagnostic imaging, which was assigned a BI-RADS Category 3: Probably Benign with recommended diagnostic breast imaging in??6 months with right diagnostic mammogram and right axillary ultrasound if indicated. She returns today for that purpose and states that she is doing well. She denies any masses in either breast. She denies any change in the appearance of her breastsor the skin of her breasts. She denies bilateral nipple discharge. She denies any axillary masses. She has no other systemic complaints and otherwise feels well today. Please note that her past medical history, surgical history, medications, allergies, review of systems, family history, and social history were all reviewed with her again today. She has a past medical history of Benign neoplasm of breast, Blood in urine, Hypertension, and Proteinuria. Past Medical History: Diagnosis Date ??? Benign neoplasm of breast ??? Blood in urine ??? Hypertension ??? Proteinuria History reviewed. No pertinent surgical history. Social History Socioeconomic History ??? Marital status: Spouse name: None ??? Number of children: None ??? Years of education: None ??? Highest education level: None Occupational History ??? None Social Needs ??? Financial resource strain: None ??? Food insecurity Worry: None Inability: None ??? Transportation needs Medical: None Non-medical: None Tobacco Use ??? Smoking status: Never Smoker ??? Smokeless tobacco: Never Used Substance and Sexual Activity ??? Alcohol use: No ??? Drug use: No ??? Sexual activity: None Lifestyle ??? Physical activity Days per week: None Minutes per session: None ??? Stress: None Relationships ??? Social connections Talks on phone: None Gets together: None Attends voodoo service: None Active member of club or organization: None Attends meetings of clubs or organizations: None Relationship status: None ??? Intimate partner violence Fear of current or ex partner: None Emotionally abused: None Physically abused: None Forced sexual activity: None Other Topics Concern ??? None Social History Narrative ??? None Family History Problem Relation Age of Onset ??? Breast cancer Sister Adenocarcinoma of breast - (Added by TW Conv) ??? Breast cancer Father's Sister Prior to Admission [...] ROS: Pertinent items are noted in HPI. Otherwise, a comprehensive review of systems was negative. PHYSICAL [...] breast examination reveals normal ptotic breasts bilaterally. The right breast is without any dominant masses, skin changes or nipple discharge. I did not appreciate anyright axillary adenopathy. The left breast is without any dominant masses, skin changes or nipple discharge. Noted is a < 1 cm, somewhat superficial, firm, non-tender nodule in the left axilla. IMAGING: The patient underwent bilateral diagnostic mammograms and bilateral axillary ultrasounds today, which I personally reviewed. She is given a BI-RADS category 2, benign. EXAMINATION: BILATERAL DIGITAL DIAGNOSTIC MAMMOGRAM INCLUDING CAD AND BILATERAL DIGITAL BREAST TOMOSYNTHESIS; BILATERAL AXILLARY SONOGRAM 12/30/2019 ?? HISTORY: 64-year-old woman presented for short-term follow-up for probably benign prominent RIGHT axillary lymphadenopathy which was initially evaluated with diagnostic ultrasound 05/17/2019, shortly after the patient reports having a spider bite. At that time, short-term follow-up imaging with RIGHT mediolateral oblique mammogram and RIGHT axillary ultrasound was recommended. The patient is being seen in the breast surgery clinic, where a clinician detected palpable area of concern was detected and marked in the LEFT axilla, therefore diagnostic imaging of the LEFT axilla was also requested. ?? COMPARISON: 04/29/2019, 04/23/2018, and 05/14/2016 ?? TECHNIQUE: Full field digital mammographic views of BOTH breasts were performed, including computer aided detection (CAD) and BILATERAL digital breast tomosynthesis (DBT). Directed ultrasound evaluation of BOTH axillae was performed.. ?? BREAST PARENCHYMAL COMPOSITION: The breasts are heterogenously dense, which may obscure small masses. ?? MAMMOGRAM FINDINGS: There is no mass, calcification or architectural distortion suggestive of malignancy within EITHER breast. Note is made of a triangular marker in the LEFT axillary region corresponding to lesion detected palpable area of concern. Prominent RIGHT axillary lymph nodes appear similar to the LEFT axillary lymph nodes and are smaller in size when compared to the 04/29/2019 mammogram. SONOGRAM FINDINGS: Targeted ultrasound examination of both axillae were performed. Attending radiologist, Dr. Vinny Moncada , personally performed physical examination and sonography evaluation. Physical examination did not reveal any palpable area of concern within the LEFT axilla. ?? RIGHT axilla: There are multiple prominent lymph nodes, with maximum thickness of cortex measuring up to 3 mm, decreased in thickness since the prior where it measured 4 mm. ?? LEFT axilla: There are multiple normal-appearing lymph nodes. Corresponding to area of palpable concern, there is tiny solid hypoechoic mass in the dermis, likely an epidermal inclusion cyst. No suspicious lymph nodes or masses are identified. ?? IMPRESSION: 1. Interval decrease in size of prominent RIGHT axillary lymph nodes with no suspicious findings in the RIGHT breast. ?? 2. No suspicious thoracic finding in the LEFT breast. ?? 3. Clinician detected palpable area of concern in the LEFT axilla corresponds to a tiny epidermal inclusion cyst or sebaceous cyst. No suspicious lymphadenopathy in the LEFT axilla. ?? OVERALL FINAL ASSESSMENT: BI-RADS Category 2: Benign. ?? Annual screening mammography is recommended. Continued clinical follow-up is recommended. IMPRESSION/RECOMMENDATION: Lindsay Pedersen is a 64 y.o. female with a history of intraductal papilloma, as well as a family history of breast cancer. ??She returns today for short interval follow up ofa right axillary category III finding. This was due to prominent right axillary lymph nodes. At thetime of the imaging, she did report a history of a recent spider bite. I reassured her that based on her clinical exam and my review of her diagnostic imaging today that there are no abnormalities requiring further intervention or biopsy. The right axillary lymph nodes have decreased in size. Furthermore, the left axillary nodule that I detected on clinical exam is consistent with a small epidermal inclusion cyst. I have encouraged the patient to continue her self-examinations on a monthly basis and to alert me of any changes. ??I will plan to see her back in one year, at which time she willbe due for her bilateral screening mammograms. ??She is comfortable with this plan and will contactme if any new questions or concerns arise. Jody Durán NP Cosigned by Steven Pickard MD at 01/02/2020 11:30 AM CDT documented in this encounter Plan of Treatment Not on file documented as of this encounter Results * Diagnostic Mammogram Bilateral W Prem (12/30/2019 11:08 AM CDT) Anatomical Region Laterality Modality Breast Bilateral Mammography 12/30/2019 11:3 8 AM CDT Impressions 12/30/2019 2:26 PM CDT 1. ??Interval decrease in size of prominent RIGHT axillary lymph nodes with no suspicious findings in the RIGHT breast. 2. ??No suspicious thoracic finding in the LEFT breast. 3. Clinician detected palpable area of concern in the LEFT axilla corresponds to a tiny epidermal inclusion cyst or sebaceous cyst. ??No suspicious lymphadenopathy in the LEFT axilla. OVERALL FINAL ASSESSMENT: BI-RADS Category 2: Benign. Annual screening mammography is recommended. Continued clinical follow-up is recommended. Dictated by: Eliu Aguilar M.D. The radiology attending physician has personally reviewed this study, and had reviewed and/or edited this written report and agrees with it. Electronically signed by: Vinny Moncada M.D. Narrative 12/30/2019 2:26 PM CDT EXAMINATION: BILATERAL DIGITAL DIAGNOSTIC MAMMOGRAM INCLUDING CAD AND BILATERAL DIGITAL BREAST TOMOSYNTHESIS; BILATERAL AXILLARY SONOGRAM HISTORY: 64-year-old woman presented for short-term follow-up for probably benign prominent RIGHT axillary lymphadenopathy which was initially evaluated with diagnostic ultrasound 05/17/2019, shortly after the patient reports having a spider bite. ??At that time, short-term follow-up imaging with RIGHT mediolateral oblique mammogram and RIGHT axillary ultrasound was recommended. ??The patient is being seen in the breast surgery clinic, where a clinician detected palpable area of concern was detected and marked in the LEFT axilla, therefore diagnostic imaging of the LEFT axilla was also requested. COMPARISON: 04/29/2019, 04/23/2018, and 05/14/2016 TECHNIQUE: ?? Full field digital mammographic views of BOTH breasts were performed, including computer aided detection (CAD) and BILATERAL digital breast tomosynthesis (DBT). ??Directed ultrasound evaluation of BOTH axillae was performed.. BREAST PARENCHYMAL COMPOSITION: The breasts are heterogenously dense, which may obscure small masses. MAMMOGRAM FINDINGS: There is no mass, calcification or architectural distortion suggestive of malignancy within EITHER breast. Note is made of a triangular marker in the LEFT axillary region corresponding to lesion detected palpable area of concern. ??Prominent RIGHT axillary lymph nodes appear similar to the LEFT axillary lymph nodes and are smaller in size when compared to the 04/29/2019 mammogram. SONOGRAM FINDINGS: Targeted ultrasound examination of both axillae were performed. Attending radiologist, Dr. Vinny Moncada , personally performed physical examination and sonography evaluation. ??Physical examination did not reveal any palpable area of concern within the LEFT axilla. RIGHT axilla: There are multiple prominent lymph nodes, with maximum thickness of cortex measuring up to 3 mm, decreased in thickness since the prior where it measured 4 mm. LEFT axilla: There are multiple normal-appearing lymph nodes. Corresponding to area of palpable concern, there is tiny solid hypoechoic mass in the dermis, likely an epidermal inclusion cyst. No suspicious lymph nodes or masses are identified. Procedure Note Vinny Moncada MD - 12/30/2019 EXAMINATION: BILATERAL DIGITAL DIAGNOSTIC MAMMOGRAM INCLUDING CAD AND BILATERAL DIGITAL BREAST TOMOSYNTHESIS; BILATERAL AXILLARY SONOGRAM HISTORY: 64-year-old woman presented for short-term follow-up for probably benign prominent RIGHT axillary lymphadenopathy which was initially evaluated with diagnostic ultrasound 05/17/2019, shortly after the patient reports having a spider bite. At that time, short-term follow-up imaging with RIGHT mediolateral oblique mammogram and RIGHT axillary ultrasound was recommended. The patient is being seen in the breast surgery clinic, where a clinician detected palpable area of concern was detected and marked in the LEFT axilla, therefore diagnostic imaging of the LEFT axilla was also requested. COMPARISON: 04/29/2019, 04/23/2018, and 05/14/2016 TECHNIQUE: Full field digital mammographic views of BOTH breasts were performed, including computer aided detection (CAD) and BILATERAL digital breast tomosynthesis (DBT). Directed ultrasound evaluation of BOTH axillae was performed.. BREAST PARENCHYMAL COMPOSITION: The breasts are heterogenously dense, which may obscure small masses. MAMMOGRAM FINDINGS: There is no mass, calcification or architectural distortion suggestive of malignancy within EITHER breast. Note is made of a triangular marker in the LEFT axillary region corresponding to lesion detected palpable area of concern. Prominent RIGHT axillary lymph nodes appear similar to the LEFT axillary lymph nodes and are smaller in size when compared to the 04/29/2019 mammogram. SONOGRAM FINDINGS: Targeted ultrasound examination of both axillae were performed. Attending radiologist, Dr. Vinny Moncada , personally performed physical examination and sonography evaluation. Physical examination did not reveal any palpable area of concern within the LEFT axilla. RIGHT axilla: There are multiple prominent lymph nodes, with maximum thickness of cortex measuring up to 3 mm, decreased in thickness since the prior where it measured 4 mm. LEFT axilla: There are multiple normal-appearing lymph nodes. Corresponding to area of palpable concern, there is tiny solid hypoechoic mass in the dermis, likely an epidermal inclusion cyst. No suspicious lymph nodes or masses are identified. IMPRESSION: 1. Interval decrease in size of prominent RIGHT axillary lymph nodes with no suspicious findings in the RIGHT breast. 2. No suspicious thoracic finding in the LEFT breast. 3. Clinician detected palpable area of concern in the LEFT axilla corresponds to a tiny epidermal inclusion cyst or sebaceous cyst. No suspicious lymphadenopathy in the LEFT axilla. OVERALL FINAL ASSESSMENT: BI-RADS Category 2: Benign. Annual screening mammography is recommended. Continued clinical follow-up is recommended. Dictated by: Eliu Aguilar M.D. The radiology attending physician has personally reviewed this study, and had reviewed and/or edited this written report and agrees with it. Electronically signed by: Vinny Moncada M.D. Jody Durán NP IMG MAMMO PROCEDURES Fin al Result documented in this encounter Visit Diagnoses Diagnosis Encounter for screening mammogram for malignant neoplasm of breast- Primary BI-RADS category 3 mammogram result Sebaceous cyst of left axilla Axillary lymphadenopathy Enlargement of lymph nodes BI-RADS category 3 mammogram result documented in this encounter Discontinued Medications Medication Sig Discontinue Reason Start Date End Da te hydroCHLOROthiazide (MICROZIDE) 12.5 mg capsule TK 1 C PO D 03/12/2018 12/30/2019 influenza quadrivalent (Fluzone Quad , PF,) 60 mcg (15 mcg x 4)/0.5 mL syringe PHARMACIST ADMINISTERED IMMUNIZATION ADMINISTERED AT TIME OF DISPENSING 12/19/2018 12/30/2019 influenza quadrivalent (FLUZONE) 60 mcg (15 mcg x 4)/0.5 mL syringe PHARMACIST ADMINISTERED IMMUNIZATION ADMINISTERED AT TIME OF DISPENSING 12/19/2018 12/30/2019 documented as of this encounter Historical Medications * This list may reflect changes made after this encounter. hydroCHLOROthiazi de (HYDRODIURIL) 12.5 mg tablet Take 1 tablet (12.5 mg total) by mouth daily 12/21/2019 4 sAXagliptin (ONGLYZA) 2.5 mg tablet Take 2.5 mg by mouth daily 10/17/2018 3 influenza quadrivalent (Fluzone Quad , PF,) 60 mcg (15 mcg x 4)/0.5 mL syringe PHARMACIST ADMINISTERED IMMUNIZATION ADMINISTERED AT TIME OF DISPENSING 12/19/2018 0 influenza quadrivalent [id number] (FLUZONE) 60 mcg (15 mcg x 4)/0.5 mL syringe PHARMACIST ADMINISTERED IMMUNIZATION ADMINISTERED AT TIME OF DISPENSING 12/19/2018 0 added in this encounter Orders Outpatient Referral Count Last Ordered Date Fir st Ordered Date AMB REFERRAL TO SURGICAL ONCOLOGY 1 020 documented in this encounter Care Teams Pet Nutrition Specialist Relationship Specialty Start Date End Date Bao Lyons DO PCP - General 05/09/16 10/03/21 Bao Lyons DO 05/09/16 10/03/21 documented as of this encounter
--- OUTSIDE RECORDS SUMMARY | 2024-03-23 01:52 | XMS_ITS | Encounter Summary ---
Author Organization [facility] Address [address] [place] [address] Phone Care Team Providers Care Automated Logistics Specialist Name Role Phone Bao Lyons DO Primary Care Provider [phone] Bao Lyons DO Unavailable [phone] Encounter Details Date Type Department Care Team (Late st Contact Info) Description 12/29/2019 Telephone [facility] Surgery [address] [place] [address] [place] [address] Cristal Barlow Social History Tobacco Use Types Packs/Day Years Used Date Smoking Tobacco: Never Smokeless Tobacco: Never Alcohol Use Standard Drinks/Week Comments No 0 (1 standard drink = 0.6 oz pur e alcohol) Comments Unknown Sex and Gender Information Value Date Recorded Sex Assigned at Not on file Legal Sex Female 5:35 PM [employer] UT[employer] 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 documented in this encounter Plan of Treatment Not on file documented as of this encounter Visit Diagnoses Not on filedocumented in this encounter Care Teams Automated Logistics Specialist Relationship Specialty Start Date End Date Yablonsky, Bao B., DO PCP - General 05/09/16 10/03/21 Bao Lyons DO 05/09/16 10/03/21 documented as of this encounter
--- OUTSIDE RECORDS SUMMARY | 2024-03-23 01:52 | XMS_ITS | Encounter Summary ---
Author Organization [facility] Address [address] [place] [address] Phone Care Team Providers Care Commercial Ocean Clammer Name Role Phone Ronny Mccray NP Primary Care Provider [phone] [phone] Reason for Visit * Diagnostic Imaging (Routine) - Closed Specialty Diagnoses / Procedures Referred By Kirt carvalho Referred To Contact Diagnoses Pain in right leg Procedures US VEIN DUPLEX LOWER EXTREMITY RIGHT LIMITED, UNILATERAL Ronny Mccray NP Phone: tel: fax: [facility] (All Locations) Referral ID Status Reason Start Date Expiration Date Visits Re quested Visits Authorized [id number] Closed 02/06/2022 03/08/2023 1 1 Encounter Details Date Type Department Care Team (Latest Contact Info) Description 02/08/2022 1:45 PM ORDER TAKER Ancillary Procedure [facility] at [facility] [place] [facility] [address] [place] [address] Advanced Medicine 8th [place] [address] [place] [id number] Pain in right leg Social History Tobacco Use Types Packs/Day Years Used Date Smoking Tobacco: Never Smokeless Tobacco: Never Alcohol Use Standard Drinks/Week Comments No 0 (1 standard drink = 0.6 oz pur e alcohol) Comments Unknown Sex and Gender Information Value Date Recorded Sex Assigned at Not on file Legal Sex Female 5:35 PM ORDER TAKER Gender Identity Not on file Sexual Orientation Not on file documented as of this encounter Plan of Treatment Not on file documented as of this encounter Procedures Procedure Name Priority Date/Time Associated Diagnosis Comments US VEIN DUPLEX LOWER EXTREMITY RIGHT LIMITED Schedule Routine, Read Routine (OP Routine) 02/08/2022 4:53 PM ORDER TAKER Pain in right leg documented in this encounter Results * US VEIN DUPLEX LOWER EXTREMITY RIGHT LIMITED, UNILATERAL (02/08/2022 4:53 PM ORDER TAKER) Anatomical Region Laterality Modality Vascular Right Ultrasound 02/08/2022 2:57 PM ORDER TAKER Narrative 02/08/2022 9:13 PM ORDER TAKER [facility] - Department of Vascular Surgery, Vascular Laboratory [address] [place] [address] Lower Extremity Venous Ultrasound Report Patient Name: LINDSAY PEDERSEN : 1955 (67y ) Study Date: 02/08/2022 2:57:19 PM Gender: F Tech: TP Location: [facility] Ref.Provider: RONNY MCCRAY Quality: Adequate Order Provider: RONNY MCCRAY Procedures: Vascular Report: Venous Duplex imaging was performed in the right lower extremity. The common femoral, femoral, popliteal, posterior tibial, peroneal veins were evaluated for patency, spontaneity and phasicity with Doppler, compression and augmentation maneuvers. Great saphenous vein proximal at the junction was evaluated with compression maneuvers. Indications: Pain in Leg, Right. Findings: Performing Blacking Machine Operator: Jesenia Perez RVT, RDMS. Right: Venous Doppler signals in the right lower extremity are within normal limits for spontaneity and phasicity and respond normally to augmentation maneuvers. No evidence of deep vein thrombus by duplex, proximal to the calf. No evidence of superficial vein thrombus on the right. Comments: Contralateral common femoral vein is imaged for comparison and is patent. Unilateral (limited study) performed per M.D. order. Conclusions: 1. There is no evidence of acute deep vein thrombosis on the right. Noninvasive venous studies cannot rule out isolated calf vein obstruction. History: Not identified. Previous Studies: No previous studies for comparison. Disclaimer: The signing physician has reviewed all images pertaining to this test. These images and this report will be retained in the patient chart by the Vascular Laboratory for the legally required time period. This chart constitutes the legal record of any testing performed. Electronically Signed By: Chalo Fletcher MD [facility] 2022-02-08 21:13:13 ORDER TAKER CC: CC: Procedure Note Chalo Fletcher MD - 02/08/2022 [facility] - Department of Vascular Surgery,Vascular Laboratory [address] [place] [address] Lower Extremity Venous Ultrasound Report Patient Name: Paras PEDERSENent ID: [id number] : 1955 (67y )Study Date: 02/08/2022 2:57:19 PM Gender: FAccession #: [id number] Tech: TPLocation: [facility] Ref.Provider: Kay MCCRAYality: Adequate Order Provider: Hector MCCRAY #: [id number] Procedures: Vascular Report: Venous Duplex imaging was performed in the right lower extremity. Thecommon femoral, femoral, popliteal, posterior tibial, peroneal veins were evaluated forpatency, spontaneity and phasicity with Doppler, compression and augmentationmaneuvers. Great saphenous vein proximal at the junction was evaluated with compressionmaneuvers. Indications: Pain in Leg, Right. Findings: Performing Blacking Machine Operator: Jesenia Perez RVT, ORI. Right: Venous Doppler signals in the right lower extremity are within normallimits for spontaneity and phasicity and respond normally to augmentation maneuvers.No evidence of deep vein thrombus by duplex, proximal to the calf. No evidence ofsuperficial vein thrombus on the right. Comments: Contralateral common femoral vein is imaged for comparison and is patent.Unilateral (limited study) performed per M.D. order. Conclusions: 1. There is no evidence of acute deep vein thrombosis on the right.Noninvasive venous studies cannot rule out isolated calf vein obstruction. History: Not identified. Previous Studies: No previous studies for comparison. Disclaimer: The signing physician has reviewed all images pertaining to this test.These images and this report will be retained in the patient chart by the VascularLaboratory for the legally required time period. This chart constitutes the legal record ofany testing performed. Electronically Signed By: Chalo Fletcher MD [facility] 2022-02-08 21:13:13 ORDER TAKER CC: CC: us Ronny Mccray NP IMG US PROCEDURES Final R esult documented in this encounter Visit Diagnoses Diagnosis Pain in right leg documented in this encounter Care Teams Commercial Ocean Clammer Relationship Specialty Start Date End Date Ronny Mccray NP PCP - General Nurse Practitioner 10/04/21 06/11/22 documented as of this encounter
--- OUTSIDE RECORDS SUMMARY | 2024-03-23 01:52 | XMS_ITS | Encounter Summary ---
Author Organization [facility] Address [address] [place] [address] Phone Care Team Providers Care Electrician Refinery Name Role Phone Bao Lyons DO Primary Care Provider [phone] Bao Lyons DO Unavailable [phone] Reason for Referral * Diagnostic Imaging (Routine) - Closed Specialty Diagnoses / Procedures Referred By Kirt carvalho Referred To Contact Diagnoses Abnormal mammogram Procedures Screening Mammogram Bilateral W Prem Jody Durán NP Phone: tel: fax: [facility] [address] [place] [address] Referral ID Status Reason Start Date Expiration Date Visits Re quested Visits Authorized [id number] Closed 12/25/2020 01/24/2022 1 1 Encounter Details Date Type Department Care Team (Late st Contact Info) Description 12/25/[address] 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 ??Views obtained: ??bilateral craniocaudal and bilateral mediolateral oblique. ??Computer Aided Detection was performed. Mammogram Findings: The present examination has been compared to prior imaging studies performed at [facility] on 04/29/2019, 12/30/2019 and 01/03/2021. The breasts are heterogeneously dense, which may obscure small masses. There is no suspicious abnormality in either breast. Impression: There is no mammographic evidence of malignancy. Annual screening mammography is recommended. OVERALL FINAL ASSESSMENT: BI-RADS CATEGORY 1: ??Negative. Procedure Note Adelita De La O MD - 01/09/2022 Mammogram Technique: Bilateral Digital Breast Tomosynthesis, Bilateral C-view 2D Screening mammogram. Views obtained: bilateral craniocaudal and bilateral mediolateral oblique. Computer Aided Detection was performed. Mammogram Findings: The present examination has been compared to prior imaging studies performed at [facility] on 04/29/2019, 12/30/2019 and 01/03/2021. The breasts are heterogeneously dense, which may obscure small masses. There is no suspicious abnormality in either breast. Impression: There is no mammographic evidence of malignancy. Annual screening mammography is recommended. OVERALL FINAL ASSESSMENT: BI-RADS CATEGORY 1: Negative. Jody Durán NP IMG MAMMO PROCEDURES Fin al Result documented in this encounter Visit Diagnoses Diagnosis Abnormal mammogram- Primary Abnormal mammogram, unspecified Abnormal mammogram Abnormal mammogram, unspecified documented in this encounter Care Teams Electrician Refinery Relationship Specialty Start Date End Date Bao Lyons DO PCP - General 05/09/16 10/03/21 Bao Lyons DO 05/09/16 10/03/21 documented as of this encounter
--- OUTSIDE RECORDS SUMMARY | 2024-03-23 01:52 | XMS_ITS | Encounter Summary ---
Author Organization [facility] Address [address] [place] [address] Care Team Providers Care Chemical Production Machine Operator Name Role Phone Bao Lyons DO Primary Care Provider [phone] Bao Lyons DO Unavailable Reason for Referral * Diagnostic Imaging (Routine) - Closed Specialty Diagnoses / Procedures Referred By Kirt carvalho Referred To Contact Diagnoses Family history of breast cancer Procedures Screening Mammogram Bilateral W Jody Engel NP Phone: tel: fax: [address] [address] Referral ID Status Reason Start Date Expiration Date Visits Re quested Visits Authorized [id number] Closed 04/29/2019 11/07/2020 1 1 Reason for Visit * Diagnostic Imaging (Routine) - Closed Specialty Diagnoses / Procedures Referred By Kirt carvalho Referred To Contact Diagnoses Family history of breast cancer Procedures Screening Mammogram Bilateral W Jody Engel NP Phone: tel: fax: [address] [address] Referral ID Status Reason Start Date Expiration Date Visits Re quested Visits Authorized [id number] Closed 04/29/2019 11/07/2020 1 1 Encounter Details Date Type Department Care Team (Late st Contact Info) Description 01/03/2021 8:27 AM CDT - 01/03/2021 11:59 PM CDT Hospital Encounter [facility] [address] [place] [address] Jody Durán NP [address] [place] [address] Family history of breast cancer Discharge Disposition: Discharge to home or self care Social History Tobacco Use Types Packs/Day Years Used Date Smoking Tobacco: Never Smokeless Tobacco: Never Alcohol Use Standard Drinks/Week Comments No 0 (1 standard drink = 0.6 oz pur e alcohol) Comments Unknown Sex and Gender Information Value Date Recorded Sex Assigned at Not on file 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 Gender Identity Not on file Sexual Orientation Not on file documented as of this encounter Medications at Time of Discharge amLODIPine (NORVASC) 10 mg tablet Take 1 tablet (10 mg total) by mouth daily losartan (COZAAR) 100 mg tablet Take 1 tablet (100 mg total) by mouth daily 3 02/23/2018 atorvastatin (LIPITOR) 10 mg tablet TK 1 T PO D 0 03/12/2018 01/09/2022 ergocalciferol (VITAMIN D) 50,000 unit capsule TK 1 C PO ONCE WEEKLY WITH A LARGE MEAL 1 02/25/2018 06/19/2022 hydroCHLOROthiazi de (HYDRODIURIL) 12.5 mg tablet Take 1 tablet (12.5 mg total) by mouth daily 12/21/2019 06/11/2023 metFORMIN (GLUCOPHAGE) 500 mg tablet TK 1 T PO QHS 2 03/02/2018 06/19/2022 sAXagliptin (ONGLYZA) 2.5 mg tablet Take 2.5 mg by mouth daily 10/17/2018 06/19/2022 documented as of this encounter Discharge Disposition Disposition Code Departure Means Destination Discharge to home or self care documented in this encounter Plan of Treatment Not on file documented as of this encounter Procedures Procedure Name Priority Date/Time Associated Diagnosis Comments SCREENING MAMMOGRAM BILATERAL W PREM Schedule Routine, Read Routine (OP Routine) 01/03/2021 8:44 AM CDT Family history of breast cancer documented in this encounter Results * Screening Mammogram Bilateral W Prem (01/03/2021 8:44 AM CDT) Anatomical Region Laterality Modality Breast Bilateral Mammography Narrative 01/04/2021 10:15 AM CDT Mammogram Technique: Bilateral Digital Breast Tomosynthesis, Bilateral C-view 2D Screening mammogram. ??Views obtained: ??bilateral craniocaudal and bilateral mediolateral oblique. ??Computer Aided Detection was performed. Mammogram Findings: The present examination has been compared to prior imaging studies performed at [facility] on 04/23/2018, 04/29/2019 and 12/30/2019. The breasts are heterogeneously dense, which may obscure small masses. There is no suspicious abnormality in either breast. Impression: There is no mammographic evidence of malignancy. Annual screening mammography is recommended. OVERALL FINAL ASSESSMENT: BI-RADS CATEGORY 1: ??Negative. Procedure Note Adelita De La O MD - 01/04/2021 Mammogram Technique: Bilateral Digital Breast Tomosynthesis, Bilateral C-view 2D Screening mammogram. Views obtained: bilateral craniocaudal and bilateral mediolateral oblique. Computer Aided Detection was performed. Mammogram Findings: The present examination has been compared to prior imaging studies performed at [facility] on 04/23/2018, 04/29/2019 and 12/30/2019. The breasts are heterogeneously dense, which may obscure small masses. There is no suspicious abnormality in either breast. Impression: There is no mammographic evidence of malignancy. Annual screening mammography is recommended. OVERALL FINAL ASSESSMENT: BI-RADS CATEGORY 1: Negative. us Jody Durán NP IMG MAMMO PROCEDURES Fin al Result documented in this encounter Visit Diagnoses Diagnosis Family history of breast cancer Family history of malignant neoplasm of breast documented in this encounter Care Teams Chemical Production Machine Operator Relationship Specialty Start Date End Date Bao Lyons DO PCP - General 05/09/16 10/03/21 Bao Lyons DO 05/09/16 10/03/21 documented as of this encounter
--- OUTSIDE RECORDS SUMMARY | 2024-03-23 01:52 | XMS_ITS | Encounter Summary ---
Author Organization [facility] Address [address] [place] [address] Care Team Providers Care Bus Van Driver Name Role Phone Amina Mccray NP Primary Care Provider [phone] Encounter Details Date Type Department Care Team (Late st Contact Info) Description 02/06/2022 Orders Only [facility] Health Information Management [address] [place] [address] Scanning, Provider Social History Tobacco Use Types Packs/Day Years Used Date Smoking Tobacco: Never Smokeless Tobacco: Never Alcohol Use Standard Drinks/Week Comments No 0 (1 standard drink = 0.6 oz pur e alcohol) Comments Unknown Sex and Gender Information Value Date Recorded Sex Assigned at Not on file 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 Gender Identity Not on file Sexual Orientation Not on file documented as of this encounter Plan of Treatment Not on file documented as of this encounter Procedures Procedure Name Priority Date/Time Associated Diagnosis Comments SCAN - OTHER ORDERS 02/06/2022 documented in this encounter Results * SCAN - OTHER ORDERS (02/06/2022) us Provider Scanning Final Result documented in this encounter Visit Diagnoses Not on filedocumented in this encounter Care Teams Bus Van Driver Relationship Specialty Start Date End Date Amina Mccray NP PCP - General Nurse Practitioner 10/04/21 06/11/22 documented as of this encounter
--- OUTSIDE RECORDS SUMMARY | 2024-03-23 01:52 | XMS_ITS | Encounter Summary ---
Author Organization [facility] Address [address] [place] [address] Phone Care Team Providers Care Director Of Reservations Name Role Phone Bao Lyons DO Primary Care Provider [phone] Bao Lyons DO Unavailable [phone] Reason for Referral * Diagnostic Imaging (Routine) - Closed Specialty Diagnoses / Procedures Referred By Kirt carvalho Referred To Contact Diagnoses Intraductal papilloma of breast, left Procedures Screening Mammogram Bilateral W Steven Kumari MD Phone: tel: fax: [address] [address] Referral ID Status Reason Start Date Expiration Date Visits Re quested Visits Authorized [id number] Closed 04/23/2018 11/02/2019 1 1 OM SKI MAKER Encounter Details Date Type Department Care Team (Late st Contact Info) Description 04/23/2018 Orders Only [facility] Surgery [facility] [facility] 5th [place] [address] [place] [address] Steven Pickard MD [address] [place] [address] Intraductal papilloma of breast, left (Primary Dx) Social History Tobacco Use Types Packs/Day Years Used Date Smoking Tobacco: Never Smokeless Tobacco: Never Alcohol Use Standard Drinks/Week Comments No 0 (1 standard drink = 0.6 oz pur e alcohol) Comments Unknown Sex and Gender Information Value Date Recorded Sex Assigned at Not on file Legal Sex Female 5:35 PM CUSTOM SKI MAKER Gender Identity Not on file Sexual Orientation Not on file documented as of this encounter Plan of Treatment Not on file documented as of this encounter Results * Screening Mammogram Bilateral W Prem (04/29/2019 2:52 PM CUSTOM SKI MAKER) Anatomical Region Laterality Modality Breast Bilateral Mammography Narrative 04/30/2019 9:59 AM CUSTOM SKI MAKER Mammogram Technique: Bilateral Digital Breast Tomosynthesis, Bilateral C-view 2D Screening mammogram. ??Views obtained: ??bilateral craniocaudal and bilateral mediolateral oblique. ??Computer Aided Detection was performed. Mammogram Findings: The present examination has been compared to prior imaging studies performed at [facility] on 04/28/2014, 04/16/2016, 04/23/2016 and 04/23/2018. The breasts are heterogeneously dense, which may obscure small masses. There is an area of axillary adenopathy on the right side. There is no suspicious abnormality in the left breast. Impression: Area of axillary adenopathy in the right breast requires additional evaluation. An ultrasound exam is recommended. OVERALL FINAL ASSESSMENT: BI-RADS CATEGORY 0: ??Incomplete: ??Need additional imaging evaluation. Procedure Note Armani Pulido MD - 04/30/2019 Mammogram Technique: Bilateral Digital Breast Tomosynthesis, Bilateral C-view 2D Screening mammogram. Views obtained: bilateral craniocaudal and bilateral mediolateral oblique. Computer Aided Detection was performed. Mammogram Findings: The present examination has been compared to prior imaging studies performed at [facility] on 04/28/2014, 04/16/2016,04/23/2016 and 04/23/2018. The breasts are heterogeneously dense, which may obscure small masses. There is an area of axillary adenopathy on the right side. There is no suspicious abnormality in the left breast. Impression: Area of axillary adenopathy in the right breast requires additional evaluation. An ultrasound exam is recommended. OVERALL FINAL ASSESSMENT: BI-RADS CATEGORY 0: Incomplete: Need additional imaging evaluation. us Steven Pickard MD IMG MAMMO PROCEDURES Fi nal Result documented in this encounter Visit Diagnoses Diagnosis Intraductal papilloma of breast, left- Primary Intraductal papilloma of breast, left documented in this encounter Care Teams Director Of Reservations Relationship Specialty Start Date End Date Bao Lyons DO PCP - General 05/09/16 10/03/21 Bao Lyons DO 05/09/16 10/03/21 documented as of this encounter
--- OUTSIDE RECORDS SUMMARY | 2024-03-23 01:52 | XMS_ITS | Encounter Summary ---
Author Organization [facility] Address [address] [place] [address] Care Team Providers Care Building Supplies Salesperson Retail Name Role Phone Bao Lyons DO Primary Care Provider [phone] Bao Lyons DO Unavailable [phone] Reason for Referral * Diagnostic Imaging (Routine) - Closed Specialty Diagnoses / Procedures Referred By Kirt carvalho Referred To Contact Diagnoses BI-RADS category 3 mammogram result Procedures Diagnostic Mammogram Bilateral W Jody Engel NP Phone: tel: fax: [address] [address] Referral ID Status Reason Start Date Expiration Date Visits Re quested Visits Authorized [id number] Closed 12/30/2019 01/28/2021 1 1 Reason for Visit * Diagnostic Imaging (Routine) - Closed Specialty Diagnoses / Procedures Referred By Kirt carvalho Referred To Contact Diagnoses BI-RADS category 3 mammogram result Procedures Diagnostic Mammogram Bilateral W Jody Engel NP Phone: tel: fax: [address] [address] Referral ID Status Reason Start Date Expiration Date Visits Re quested Visits Authorized [id number] Closed 12/30/2019 01/28/2021 1 1 Encounter Details Date Type Department Care Team (Late st Contact Info) Description 12/30/2019 10:00 AM CDT - 12/30/2019 11:59 PM CDT Hospital Encounter [facility] [address] [place] [address] Trace Ramirez MD [address] [facility] [address] [place] [address] Jody Durán NP [address] [place] [address] BI-RADS category 3 mammogram result Discharge Disposition: Discharge to home or self care Social History Tobacco Use Types Packs/Day Years Used Date Smoking Tobacco: Never Smokeless Tobacco: Never Alcohol Use Standard Drinks/Week Comments No 0 (1 standard drink = 0.6 oz pur e alcohol) Comments Unknown Sex and Gender Information Value Date Recorded Sex Assigned at Not on file 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 Electronically signed by: Vinny Moncada M.D. us Jody Durán NP IMG US PROCEDURES Final Result * Diagnostic Mammogram Bilateral W Lane (12/30/2019 11:08 AM CDT) Anatomical Region Laterality [...] signed by: Vinny Moncada M.D. Jody Durán DIRECTOR OF VOCATIONAL TRAINING IMG MAMMO PROCEDURES Fin al Result documented in this encounter Visit Diagnoses Diagnosis BI-RADS category 3 mammogram result documented in this encounter Care Teams Building Supplies Salesperson Retail Relationship Specialty Start Date End Date Bao Lyons DO PCP - General 05/09/16 10/03/21 Bao Lyons DO 05/09/16 10/03/21 documented as of this encounter
--- OUTSIDE RECORDS SUMMARY | 2024-03-23 01:52 | XMS_ITS | Encounter Summary ---
Author Organization [facility] Healthcare Address [address] [place] [address] Care Team Providers Care Oracle Fusion Middleware Developer Name Role Phone Bao Lyons DO Primary Care Provider [phone] Bao Lyons DO Unavailable [phone] Reason for Visit * Diagnostic Imaging (Routine) - Closed Specialty Diagnoses / Procedures Referred By Contac t Referred To Contact Diagnoses Injury due to fall, initial encounter Procedures XR Knee Right 1 or 2 Views XR Knee Right 3 Views Amina Mccray NP Phone: tel: fax: [address] [address] Referral ID Status Reason Start Date Expiration Date Visits Re quested Visits Authorized [id number] Closed 08/22/2021 09/21/2022 1 1 Encounter Details Date Type Department Care Team (Latest Contact Info) Description 08/22/2021 2:17 PM CDT - 08/22/2021 11:59 PM CDT Hospital Encounter [facility] [address] [place] [address] Injury due to fall, initial encounter Discharge Disposition: Discharge to home or self care Social History Tobacco Use Types Packs/Day Years Used Date Smoking Tobacco: Never Smokeless Tobacco: Never Alcohol Use Standard Drinks/Week Comments No 0 (1 standard drink = 0.6 oz pur e alcohol) Comments Unknown Sex and Gender Information Value Date Recorded Sex Assigned at Not on file 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 Fall today with right knee pain. TECHNIQUE: ?? 2 ??radiographic views acquired of the right knee. COMPARISON: ?? None available FINDINGS: BONES/JOINTS: ?? No acute fracture, malalignment or osseous abnormalities. ?? Joint spaces are maintained. SOFT TISSUES: ?? Unremarkable. OTHER: ?? No other significant finding. IMPRESSION: ?? No acute osseous abnormality. THIS IS AN ELECTRONICALLY VERIFIED FINAL REPORT 08/23/2021 8:13 AM - Electronically signed by ??Roberto MIX D: ??08/23/2021 8:13 AM T: Report ID: [id number] Reading Location: ??[id number] Procedure Note Roberto Petty MD - 08/23/2021 EXAM DESCRIPTION: XR KNEE RIGHT 1 OR 2 VIEWS REASON FOR STUDY: Fall today with right knee pain. TECHNIQUE: 2 radiographic views acquired of the right knee. COMPARISON: None available FINDINGS: BONES/JOINTS: No acute fracture, malalignment or osseous abnormalities. Joint spaces are maintained. SOFT TISSUES: Unremarkable. OTHER: No other significant finding. IMPRESSION: No acute osseous abnormality. THIS IS AN ELECTRONICALLY VERIFIED FINAL REPORT 08/23/2021 8:13 AM - Electronically signed by Roberto MIX T: Report ID: [id number] Reading Location: [id number] Amina Mccray MOLD STRIPPER IMG XR PROCEDURES Final R esult documented in this encounter Visit Diagnoses Diagnosis Injury due to fall, initial encounter documented in this encounter Care Teams Oracle Fusion Middleware Developer Relationship Specialty Start Date End Date Bao Lyons DO PCP - General 05/09/16 10/03/21 Bao Lyons DO 05/09/16 10/03/21 documented as of this encounter
--- OUTSIDE RECORDS SUMMARY | 2024-03-23 01:52 | XMS_ITS | Encounter Summary ---
Author Organization [facility] Address [address] [place] [address] Phone Care Team Providers Care Early Childhood Education Specialist Name Role Phone Bao Lyons DO Primary Care Provider [phone]- [phone] Bao Lyons DO Unavailable [phone] Encounter Details Date Type Department Care Team (Late st Contact Info) Description 05/03/2019 Orders Only [facility] Surgery [address] [facility] 5th [place] [address] [place] [id number] Jody Durán NP [address] [place] [address] Abnormal mammogram (Primary Dx) Social History Tobacco Use Types Packs/Day Years Used Date Smoking Tobacco: Never Smokeless Tobacco: Never Alcohol Use Standard Drinks/Week Comments No 0 (1 standard drink = 0.6 oz pur e alcohol) Comments Unknown Sex and Gender Information Value Date Recorded Sex Assigned at Not on file 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
--- OUTSIDE RECORDS SUMMARY | 2024-03-23 01:52 | XMS_ITS | Encounter Summary ---
Author Organization [facility] Address [address] [place] [address] Phone Care Team Providers Care Genetic Counsellor Name Role Phone Bao Lyons DO Primary Care Provider [phone]- [phone] Bao Lyons DO Unavailable [phone] Reason for Visit * Reason Comments Follow-up * Consultation (Routine) - Closed Specialty Diagnoses / Procedures Referred By Kirt carvalho Referred To Contact Surgical Oncology Diagnoses BI-RADS category 3 mammogram result Bao Lyons DO Phone: tel: fax: [facility] (All Locations) Referral ID Status Reason Start Date Expiration Date V isits Requested Visits Authorized [id number] Closed Specialty Services Required 12/09/2019 01/07/2021 99 99 Encounter Details Date Type Department Care Team (Late st Contact Info) Description 01/03/2021 10:00 AM CDT Office Visit [facility] Surgery [address] 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 HISTORY OF PRESENT ILLNESS: The patient is a 65 y.o. female who initially presented with a left breast mammographic abnormality. ??She??underwent a left breast needle localization biopsy by Dr. Pickard on 05/14/16. ??Final pathology??was??remarkable for an intraductal [...] of axillary adenopathy in the right breast required additional evaluation. She then underwent a right axillary ultrasound which demonstrated borderline prominent right axillary lymph nodes, increased compared to her imaging in 2017, though somewhat similar to the nodes in the left axilla. She had reported a recent history of a spider bite, thus these findings were felt to be likely reactive. She then underwent diagnostic imaging on 05/17/2019, which was assigned a BI-RADS Category 3, probably benign. On 12/30/2019 she return for short interval follow-upwith bilateral diagnostic mammograms and a bilateral axillary ultrasound. Noted was interval decrease in the size of prominent right axillary lymph nodes and no suspicious findings in either breast or axilla. Also evaluated was a left axillary superficial nodule which ultrasound demonstrated was consistent with a tiny epidermal inclusion cyst. She was given a BI-RADS category 2, benign bilaterally. She returns today for her routine visit and states that she is doing well. She denies any masses in either breast. She denies any change in the appearance of her breasts or the skin of her breasts.She denies bilateral nipple discharge. She denies any [...] education level: None Occupational History ??? None Tobacco Use ??? Smoking status: Never Smoker ??? Smokeless tobacco: Never Used Substance and Sexual Activity ??? Alcohol use: No ??? Drug use: No ??? Sexual activity: None Other Topics Concern ??? None Social History Narrative ??? None Social Determinants of Health Financial Resource Strain: ??? Difficulty of Paying Living Expenses: Not on file Food Insecurity: ??? Worried About Running Out of Food in the Last Year: Not on file ??? Ran Out of Food in the Last Year: Not on file Transportation Needs: ??? Lack of Transportation (Medical): Not on file ??? Lack of Transportation (Non-Medical): Not on file Physical Activity: ??? Days of Exercise per Week: Not on file ??? Minutes of Exercise per Session: Not on file Stress: ??? Feeling of Stress : Not on file Social Connections: ??? Frequency of Communication with Friends and Family: Not on file ??? Frequency of Social Gatherings with Friends and Family: Not on file ??? Attends Buddhist Services: Not on file ??? Active Member of Clubs or Organizations: Not on file ??? Attends Club or Organization Meetings: Not on file ??? Marital Status: Not on file Intimate Partner Violence: ??? Fear of Current or Ex-Partner: Not on file ??? Emotionally Abused: Not on file ??? Physically Abused: Not on file ??? Sexually Abused: Not on file Family History Problem Relation [...] breast is without any dominant masses, skin changes, nipple discharge, or axillary adenopathy. The left breast is without any dominant masses, skin changes, nipple discharge, or axillary adenopathy. Noted is a < 1 cm, somewhat superficial, firm, non-tender nodule in the left axilla that is stable and consistent with an epidermal inclusion cyst. IMAGING: The patient underwent bilateral diagnostic mammograms and bilateral axillary ultrasounds today, which I personally reviewed. She is given a BI-RADS category 2, benign. IMPRESSION/RECOMMENDATION: Lindsay Pedersen is a 65 y.o. female with a history of a left intraductal papilloma excision, as well as a family history of breast cancer. I reassured her that I did not detect any abnormalities on her clinical examination today. She underwent a bilateral screening mammogram and is aware that I will contact her with those results when final. I have encouraged the patient to continue her self-examinations on a monthly basis and to alert me of any changes. ??Otherwise, I will plan to see her back in one year, at which time she will be due for her bilateral screening mammograms. ??She is comfortable with this plan and will contact me if any new questions or concerns arise. Jody Durán NP documented in this encounter Plan of Treatment Not on file documented as of this encounter Visit Diagnoses Diagnosis Family history of breast cancer- Primary Family history of malignant neoplasm of breast documented in this encounter Care Teams Genetic Counsellor Relationship Specialty Start Date End Date Bao Lyons DO PCP - General 05/09/16 10/03/21 Bao Lyons DO 05/09/16 10/03/21 documented as of this encounter
--- OUTSIDE RECORDS SUMMARY | 2024-03-23 01:52 | XMS_ITS | Encounter Summary ---
Author Organization [facility] Address [address] [place] [address] Care Team Providers Care Rides Attendant Name Role Phone Bao Lyons DO Primary Care Provider [phone]- [phone] Bao Lyons DO Unavailable [phone] Reason for Referral * Diagnostic Imaging (Routine) - Closed Specialty Diagnoses / Procedures Referred By Contac t Referred To Contact Diagnoses Injury due to fall, initial encounter Procedures XR Skull Less than 4 Views Amina Mccray NP Phone: tel: fax: [address] [address] Referral ID Status Reason Start Date Expiration Date Visits Re quested Visits Authorized [id number] Closed 08/22/2021 09/21/2022 1 1 Reason for Visit * Diagnostic Imaging (Routine) - Closed Specialty Diagnoses / Procedures Referred By Contac t Referred To Contact Diagnoses Injury due to fall, initial encounter Procedures XR Skull Less than 4 Views Amina Mccray NP Phone: tel: fax: [address] [address] Referral ID Status Reason Start Date Expiration Date Visits Re quested Visits Authorized [id number] Closed 08/22/2021 09/21/2022 1 1 Encounter Details Date Type Department Care Team (Latest Contact Info) Description 08/22/2021 2:00 PM CDT - 08/22/2021 2:16 PM CDT Hospital Encounter [facility] [address] [place] [id number] Injury due to fall, initial encounter Discharge [...] on file 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 XR SKULL LESS THAN 4 VIEWS REASON FOR STUDY: Fall face first x today, c/o pain to skull ? TECHNIQUE: ?? 4 ??views of the skull. COMPARISON: ?? None available FINDINGS: SKULL: ?? No fracture or destructive lesion. ORBITS: ?? No fracture. ??No foreign body. SINUSES: ?? No mucosal thickening. ??No air fluid levels. OTHER: ?? No other significant finding. IMPRESSION: ?? No radiographic evidence of acute fracture. THIS IS AN ELECTRONICALLY VERIFIED FINAL REPORT 08/23/2021 8:21 AM - Electronically signed by ??Roberto MIX D: ??08/23/2021 8:21 AM T: Report ID: [id number] Reading Location: ??[id number] Procedure Note Roberto Petty MD - 08/23/2021 EXAM DESCRIPTION: XR SKULL LESS THAN 4 VIEWS REASON FOR STUDY: Fall face first x today, c/o pain to skull TECHNIQUE: 4 views of the skull. COMPARISON: None available FINDINGS: SKULL: No fracture or destructive lesion. ORBITS: No fracture. No foreign body. SINUSES: No mucosal thickening. No air fluid levels. OTHER: No other significant finding. IMPRESSION: No radiographic evidence of acute fracture. THIS IS AN ELECTRONICALLY VERIFIED FINAL REPORT 08/23/2021 8:21 AM - Electronically signed by Roberto MIX T: Report ID: [id number] Reading Location: [id number] Amina Mccray CODING COORDINATOR IMG XR PROCEDURES Final R esult documented in this encounter Visit Diagnoses Diagnosis Injury due to fall, initial encounter documented in this encounter Care Teams Rides Attendant Relationship Specialty Start Date End Date Bao Lyons DO PCP - General 05/09/16 10/03/21 Bao Lyons, 05/09/16 10/03/21 documented as of this encounter
--- OUTSIDE RECORDS SUMMARY | 2024-03-23 01:52 | XMS_ITS | Encounter Summary ---
Author Organization [facility] Address [address] [place] [address] Phone Care Team Providers Care Scalp Treatment Operator Name Role Phone Bao Lyons DO Primary Care Provider [phone] Bao Lyons DO Unavailable [phone] Encounter Details Date Type Department Care Team (Late st Contact Info) Description 12/16/[address] 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 This is not additional screening but instead a needed diagnostic f/u for an abnormal finding. I would advise her to contact her insurance to see if she has a deductible to meet, etc. Lisa, any other ideas? Jody ----- Message ----- From: Hamilton Loomis Sent: 12/09/2019 5:35 PM CDT To: MINH Stoll, Jody Durán NP Subject: insurance approval Ladies, I got her scheduled but she ask is there a way for you all to know if this will be covered by her insurance co. I told her I don't know but maybe one of you ladies might. I don't know if they have tocome back if the pt has to pay or the insurance company. Can one of you find out how that work for her please ----- Message ----- From: MINH Stoll Sent: 12/08/2019 1:33 PM CDT To: Lisa Monique, Hamilton Loomis Per Leyla's last office note in Apr: Her diagnostic imaging was assigned a BI-RADS Category 3: Probably Benign with recommended diagnostic breast imaging in 6 months with right mediolateral oblique mammogram and right axillary ultrasound if indicated. Patient notified of results and aware that our scheduling department will be contacting her to set up the six month follow up. ----- Message ----- From: Hamilton Loomis Sent: 12/08/2019 12:24 PM CDT To: MINH Stoll, Lisa Monique This pt came in Apr and is scheduled for next Apr she had a scrn and a breast us ----- Message ----- From: MINH Stoll Sent: 12/06/2019 10:19 AM CDT To: Lisa Monique, # Pt was due for her imaging in October. She has not florina scheduled can someone please call and schedule her to see Jody with her DX imaging documented in this encounter Plan of Treatment Not on file documented as of this encounter Visit Diagnoses Not on filedocumented in this encounter Care Teams Scalp Treatment Operator Relationship Specialty Start Date End Date Bao Lyons DO PCP - General 05/09/16 10/03/21 Bao Lyons DO 05/09/16 10/03/21 documented as of this encounter
--- OUTSIDE RECORDS SUMMARY | 2024-03-23 01:52 | XMS_ITS | Encounter Summary ---
Author Organization [facility] Address [address] [place] [address] Phone Care Team Providers Care Sampling Expert Name Role Phone Bao Lyons DO Primary Care Provider [phone]- [phone] Bao Lyons DO Unavailable [phone] Encounter Details Date Type Department Care Team (Late st Contact Info) Description 01/05/2021 Telephone [facility] Surgery [address] [facility] 5th [place] [address] [place] [address] Jody Durán, DAVI [address] [place] [address] Social History Tobacco Use Types Packs/Day Years Used Date Smoking Tobacco: Never Smokeless Tobacco: Never Alcohol Use Standard Drinks/Week Comments No 0 (1 standard drink = 0.6 oz pur e alcohol) Comments Unknown Sex and Gender Information Value Date Recorded Sex Assigned at Not on file 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 Pt had no questions or concerns. ----- Message from Jody Durán NP sent at 01/04/2021 6:58 PM CDT ----- Please let her know that her mammogram was normal. Thanks! documented in this encounter Plan of Treatment Not on file documented as of this encounter Visit Diagnoses Not on filedocumented in this encounter Care Teams Sampling Expert Relationship Specialty Start Date End Date Bao Lyons DO PCP - General 05/09/16 10/03/21 Bao Lyons DO 05/09/16 10/03/21 documented as of this encounter
--- OUTSIDE RECORDS SUMMARY | 2024-03-23 01:52 | XMS_ITS | Encounter Summary ---
Author Organization [facility] Healthcare Address [address] [place] [address] Care Team Providers Care Renal Social Worker Name Role Phone Bao Lyons DO Primary Care Provider [phone] Bao Lyons DO Unavailable [phone] Reason for Referral * Diagnostic Imaging (Routine) - Closed Specialty Diagnoses / Procedures Referred By Kirt t Referred To Contact Diagnoses Intraductal papilloma of breast, left Procedures Screening Mammogram Bilateral W Steven Kumari MD Phone: tel: fax: [address] [phone] Referral ID Status Reason Start Date Expiration Date Visits Re quested Visits Authorized [id number] Closed 04/23/2018 11/02/2019 1 1 TRUCTION SUPERVISOR Reason for Visit * Diagnostic Imaging (Routine) - Closed Specialty Diagnoses / Procedures Referred By Kirt carvalho Referred To Contact Diagnoses Intraductal papilloma of breast, left Procedures Screening Mammogram Bilateral W Steven Kumari MD Phone: tel: fax: [address] [phone] Referral ID Status Reason Start Date Expiration Date Visits Re quested Visits Authorized [id number] Closed 04/23/2018 11/02/2019 1 1 Encounter Details Date Type Department Care Team (Latest Contact Info) Description 04/29/2019 2:15 PM CONSTRUCTION SUPERVISOR - 04/29/2019 11:59 PM CONSTRUCTION SUPERVISOR Hospital Encounter [facility] [address] [place] [address] Steven Pickard MD [address] [place] [address] Intraductal papilloma of breast, left Discharge Disposition: Discharge to home or self care Social History Tobacco Use Types Packs/Day Years Used Date Smoking Tobacco: Never Smokeless Tobacco: Never Alcohol Use Standard Drinks/Week Comments No 0 (1 standard drink = 0.6 oz pur e alcohol) Comments Unknown Sex and Gender Information Value Date Recorded Sex Assigned at Not on file 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 Gender Identity Not on file Sexual Orientation Not on file documented as of this encounter Medications at Time of Discharge amLODIPine (NORVASC) 10 mg tablet Take 1 tablet (10 mg total) by mouth daily losartan (COZAAR) 100 mg tablet Take 1 tablet (100 mg total) by mouth daily 3 02/23/2018 atorvastatin (LIPITOR) 10 mg tablet TK 1 T PO D 0 03/12/2018 2 ergocalciferol (VITAMIN D) 50,000 unit capsule TK 1 C PO ONCE WEEKLY WITH A LARGE MEAL 1 02/25/2018 3 hydroCHLOROthiazi de (MICROZIDE) 12.5 mg capsule TK 1 C PO D 2 03/12/2018 12/30/19 2 0 influenza quadrivalent [id number] (FLUZONE) 60 mcg (15 mcg x 4)/0.5 mL syringe PHARMACIST ADMINISTERED IMMUNIZATION ADMINISTERED AT TIME OF DISPENSING 12/19/2018 0 influenza quadrivalent [id number] (Fluzone Quad [id number], PF,) 60 mcg (15 mcg x 4)/0.5 mL syringe PHARMACIST ADMINISTERED IMMUNIZATION ADMINISTERED AT TIME OF DISPENSING 12/19/2018 0 metFORMIN (GLUCOPHAGE) 500 mg tablet TK 1 T PO QHS 2 03/02/2018 3 sAXagliptin (ONGLYZA) 2.5 mg tablet Take 2.5 mg by mouth daily 10/17/2018 3 documented as of this encounter Discharge Disposition Disposition Code Departure Means Destination Discharge to home or self care documented in this encounter Plan of Treatment Not on file documented as of this encounter Procedures Procedure Name Priority Date/Time Associated Diagnosis Comments SCREENING MAMMOGRAM BILATERAL W PREM Schedule Routine, Read Routine (OP Routine) 04/29/2019 2:52 PM CONSTRUCTION SUPERVISOR Intraductal papilloma of breast, left documented in this encounter Results * Screening Mammogram Bilateral W Prem (04/29/2019 2:52 PM CONSTRUCTION SUPERVISOR) Anatomical Region Laterality Modality Breast Bilateral Mammography Narrative 04/30/2019 9:59 AM CONSTRUCTION SUPERVISOR Mammogram Technique: Bilateral Digital Breast Tomosynthesis, Bilateral C-view 2D Screening mammogram. ??Views obtained: ??bilateral craniocaudal and bilateral mediolateral oblique. ??Computer Aided Detection was performed. Mammogram Findings: The present examination has been compared to prior imaging studies performed at [facility] on 04/28/2014, 04/16/2016, 04/23/2016 and 04/23/2018. The [...] compared to prior imaging studies performed at [facility] on 04/28/2014, 04/16/2016,04/23/2016 and 04/23/2018. The breasts [...] Visit Diagnoses Diagnosis Intraductal papilloma of breast, left documented in this encounter Care Teams Renal Social Worker Relationship Specialty Start Date End Date Bao Lyons DO PCP - General 05/09/16 10/03/21 Bao Lyons DO 05/09/16 10/03/21 documented as of this encounter
--- OUTSIDE RECORDS SUMMARY | 2024-03-23 01:52 | XMS_ITS | Encounter Summary ---
Author Organization [facility] Healthcare Address [address] [place] [address] Care Team Providers Care [place] Hand Name Role Phone Amina Mccray NP Primary Care Provider [phone] Reason for Referral * Diagnostic Imaging (Routine) - Closed Specialty Diagnoses / Procedures Referred By Kirt carvalho Referred To Contact Diagnoses Fall, initial encounter Procedures XR Knee Left 3 Views Amina Mccray NP Phone: tel: fax: [address] [phone] Referral ID Status Reason Start Date Expiration Date Visits Re quested Visits Authorized [id number] Closed 02/07/2022 03/09/2023 1 1 O JOURNALIST Reason for Visit * Diagnostic Imaging (Routine) - Closed Specialty Diagnoses / Procedures Referred By Kirt carvalho Referred To Contact Diagnoses Fall, initial encounter Procedures XR Knee Left 3 Views Amina Mccray NP Phone: tel: fax: [address] [phone] Referral ID Status Reason Start Date Expiration Date Visits Re quested Visits Authorized [id number] Closed 02/07/2022 03/09/2023 1 1 Encounter Details Date Type Department Care Team (Latest Contact Info) Description 02/07/2022 11:30 AM VIDEO JOURNALIST Hospital Encounter [facility] Diagnostic Imaging [address] [place] [address] Fall, initial encounter Discharge Disposition: Discharge to home or self care Social History Tobacco Use Types Packs/Day Years Used Date Smoking Tobacco: Never Smokeless Tobacco: Never Alcohol Use Standard Drinks/Week Comments No 0 (1 standard drink = 0.6 oz pur e alcohol) Comments Unknown Sex and Gender Information Value Date Recorded Sex Assigned at Not on file Legal Sex Female 5:35 PM VIDEO JOURNALIST Gender Identity Not on file Sexual Orientation [...] Priority Date/Time Associated Diagnosis Comments XR KNEE LEFT 3 VIEWS Schedule Routine, Read Routine (OP Routine) 02/07/2022 12:20 PM VIDEO JOURNALIST Fall, initial encounter documented in this encounter Results * XR Knee Left 3 Views (02/07/2022 12:20 PM VIDEO JOURNALIST) Anatomical Region Laterality Modality Lower Extremities, Knee Left Computed Radiography 02/08/2022 9:53 PM VIDEO JOURNALIST Narrative 02/08/2022 9:54 PM VIDEO JOURNALIST EXAM DESCRIPTION: ? XR KNEE LEFT 3 VIEWS REASON FOR STUDY: ?? Fall, initial encounter ?? Patient c/o pain in left knee x December. Patient had fall x August and had pain in right knee, and patient favored right knee. Patient began having pain in left knee after having treatment on right knee. No other known injury. ? TECHNIQUE: ?? 3 ??radiographic views acquired of the left knee. COMPARISON: ?? None FINDINGS: BONES/JOINTS: ?? No acute fracture, malalignment or osseous abnormalities. ? Joint spaces are maintained. SOFT TISSUES: ?? Unremarkable. OTHER: ?? No other significant finding. IMPRESSION: ?? No acute osseous abnormality. THIS IS AN ELECTRONICALLY VERIFIED FINAL REPORT 02/08/2022 9:54 PM - Electronically signed by ??Efe Matias M.D. KT D: ??02/08/2022 9:54 PM T: Report ID: [id number] Reading Location: ??[id number] Procedure Note Efe Matias MD - 02/08/2022 EXAM DESCRIPTION: XR KNEE LEFT 3 VIEWS REASON FOR STUDY: Fall, initial encounter Patient c/o pain in left knee x December. Patient had fall x August and hadpain in right knee, and patient favored right knee. Patient began having painin left knee after having treatment on right knee. No other known injury. TECHNIQUE: 3 radiographic views acquired of the left knee. COMPARISON: None FINDINGS: BONES/JOINTS: No acute fracture, malalignment or osseous abnormalities. Joint spaces are maintained. SOFT TISSUES: Unremarkable. OTHER: No other significant finding. IMPRESSION: No acute osseous abnormality. THIS IS AN ELECTRONICALLY VERIFIED FINAL REPORT 02/08/2022 9:54 PM - Electronically signed by Efe Matias M.D. KT T: Report ID: [id number] Reading Location: [id number] Amina Mccray NP IMG XR PROCEDURES Final R esult documented in this encounter Visit Diagnoses Diagnosis Fall, initial encounter documented in this encounter Care Teams [place]house Hand Relationship Specialty Start Date End Date Amina Mccray NP PCP - General Nurse Practitioner 10/04/21 06/11/22 documented as of this encounter
--- OUTSIDE RECORDS SUMMARY | 2024-03-23 01:52 | XMS_ITS | Encounter Summary ---
Author Organization [facility] Healthcare Address [address] [place] [address] Care Team Providers Care Round Boner Name Role Phone Amina Mccray JOINTER MACHINE OPERATOR Primary Care Provider [phone] [phone] Encounter Details Date Type Department Care Team (Latest Contact Info) Description 02/07/2022 11:30 AM ORNAMENTAL IRON WORKER HELPER - 02/07/2022 11:59 PM ORNAMENTAL IRON WORKER HELPER Hospital Encounter [facility] Diagnostic Imaging [address] [place] [id number] Cough Discharge Disposition: Discharge to home or self care Social History Tobacco Use Types Packs/Day Years Used Date Smoking Tobacco: Never Smokeless Tobacco: Never Alcohol Use Standard Drinks/Week Comments No 0 (1 standard drink = 0.6 oz pur e alcohol) Comments Unknown Sex and Gender Information Value Date Recorded Sex Assigned at Not on file Legal Sex Female 5:35 PM ORNAMENTAL IRON WORKER HELPER Gender Identity Not on file Sexual [...] Name Priority Date/Time Associated Diagnosis Comments XR CHEST 3 VIEWS Schedule Routine, Read Routine (OP Routine) 02/07/2022 12:20 PM ORNAMENTAL IRON WORKER HELPER Cough documented in this encounter Results * XR Chest 3 Views (02/07/2022 12:20 PM ORNAMENTAL IRON WORKER HELPER) Anatomical Region Laterality Modality Body, Chest N/A Computed Radiogr aphy 02/08/2022 9:52 PM ORNAMENTAL IRON WORKER HELPER Narrative 02/08/2022 9:53 PM ORNAMENTAL IRON WORKER HELPER EXAM DESCRIPTION: ?? XR CHEST 3 VIEWS REASON FOR STUDY: ?? cough ?? Patient c/o cough and sinus drainage x one month. Patient has Hx of enlarged heart. No other known heart or lung conditions. ? TECHNIQUE: ?? 2 ??radiographic views of the chest acquired. COMPARISON: ?? 12/24/2021 FINDINGS: LUNGS/PLEURA: ?? No focal consolidation or pneumothorax. No pleural effusion. HEART/MEDIASTINUM: ?? Heart size is normal. Normal mediastinal and hilar contours. HARDWARE/LINES/TUBES: ?? None. BONES: ?? No acute findings. OTHER: ?? No other significant finding. IMPRESSION: ?? No acute cardiopulmonary abnormality. THIS IS AN ELECTRONICALLY VERIFIED FINAL REPORT 02/08/2022 9:53 PM - Electronically signed by ??Efe Matias M.D. KT D: ??02/08/2022 9:53 PM T: Report ID: [id number] Reading Location: ??[id number] Procedure Note Efe Matias MD - 02/08/2022 EXAM DESCRIPTION: XR CHEST 3 VIEWS REASON FOR STUDY: cough Patient c/o cough and sinus drainage x one month. Patient has Hx ofenlarged heart. No other known heart or lung conditions. TECHNIQUE: 2 radiographic views of the chest acquired. COMPARISON: 12/24/2021 FINDINGS: LUNGS/PLEURA: No focal consolidation or pneumothorax. Nopleural effusion. HEART/MEDIASTINUM: Heart size is normal. Normal mediastinal and hilar contours. HARDWARE/LINES/TUBES: None. BONES: No acute findings. OTHER: No other significant finding. IMPRESSION: No acute cardiopulmonary abnormality. THIS IS AN ELECTRONICALLY VERIFIED FINAL REPORT 02/08/2022 9:53 PM - Electronically signed by Efe Matias M.D. KT T: Report ID: [id number] Reading Location: [id number] Amina Mccray JOINTER MACHINE OPERATOR IMG XR PROCEDURES Final R esult documented in this encounter Visit Diagnoses Diagnosis Cough documented in this encounter Care Teams Round Boner Relationship Specialty Start Date End Date Amina Mccray NP PCP - General Nurse Practitioner 10/04/21 06/11/22 documented as of this encounter
--- OUTSIDE RECORDS SUMMARY | 2024-03-23 01:52 | XMS_ITS | Encounter Summary ---
Author Organization [facility] Address [address] [place] [address] Care Team Providers Care President Financial Institution Name Role Phone Ronny Mccary NP Primary Care Provider [phone] [phone] Reason for Referral * Cardiology (Routine) - Closed Specialty Diagnoses / Procedures Referred By Kirt carvalho Referred To Contact Diagnoses Bilateral lower extremity edema Murmur, cardiac Hypertension, unspecified type Procedures Transthoracic Echo Complete W Doppler/CF Ronny Mccray NP Phone: tel: fax: [address] [phone] Referral ID Status Reason Start Date Expiration Date Visits Re quested Visits Authorized [id number] Closed 09/03/2021 10/03/2022 1 1 Reason for Visit * Cardiology (Routine) - Closed Specialty Diagnoses / Procedures Referred By Kirt carvalho Referred To Contact Diagnoses Bilateral lower extremity edema Murmur, cardiac Hypertension, unspecified type Procedures Transthoracic Echo Complete W Doppler/CF Ronny Mccray NP Phone: tel: fax: [address] [phone] Referral ID Status Reason Start Date Expiration Date Visits Re quested Visits Authorized [id number] Closed 09/03/2021 10/03/2022 1 1 Encounter Details Date Type Department Care Team (Latest Contact Info) Description 10/04/2021 10:43 AM CDT - 10/04/2021 11:59 PM CDT Hospital Encounter [facility] Cardiac Testing [address] [place] [id number] Bilateral lower extremity edema; Murmur, cardiac; Hypertension, unspecified type Discharge Disposition: Discharge to home or self care Social History Tobacco Use Types Packs/Day Years Used Date Smoking Tobacco: Never Smokeless Tobacco: Never Alcohol Use Standard Drinks/Week Comments No 0 (1 standard drink = 0.6 oz pur e alcohol) Comments Unknown Sex and Gender Information Value Date Recorded Sex Assigned at Not on file Legal Sex Female 5:35 PM DIRECTOR VISUAL Gender Identity Not on file Sexual Orientation [...] Procedure Name Priority Date/Time Associated Diagnosis Comments TRANSTHORACIC ECHO (TTE) COMPLETE W DOPPLER/CF WO CONTRAST Routine 10/04/2021 10:46 AM CDT Bilateral lower extremity edema Murmur, cardiac Hypertension, unspecified type documented in this encounter Results * TRANSTHORACIC ECHO (TTE) COMPLETE W DOPPLER/CF WO CONTRAST (10/04/2021 10:46 AM CDT) Anatomical Region Laterality Modality Ultrasound 10/04/2021 10:4 6 AM CDT Narrative 10/04/2021 12:43 PM CDT ? Adult Echocardiogram + ----- -------+ :Name: LINDSAY PEDERSEN ? Study Date: 10/04/2021 ?Status: [facility] ?: : ?Patient Location: [facility] CARD TST^^^MHBHeight: 61 in ?: : ?Weight: 218 lbBP: 142/84 mmHg: :: 1955 ? Gender: Female ?BSA: 2.0 m2 ?: :Reason For Study: murmur ? : :Ordering Physician: SHAZIA, ? : :RONNY ? : :Referring Physician: ? : :UNKNOWN, NOTINFILE ? : :Performed By: Anup Chávez, ?: :RCS, RVT ? : + ----- -------+ Procedure A two-dimensional transthoracic echocardiogram with color flow and Doppler was performed. The study was technically difficult due to patient's 'body habitus'. Left Ventricle The left ventricle is normal in size. There is normal left ventricular wall thickness. Left ventricular systolic function is normal. Ejection Fraction = 55-60%. The left ventricular wall motion is normal. Right Ventricle The right ventricle is normal size. The right ventricular systolic function is normal. Atria The left atrial size is normal. Right atrial size is normal. Mitral Valve The mitral valve is normal. There is no mitral valve stenosis. There is trace mitral regurgitation. Tricuspid Valve The tricuspid valve is normal. There is physiologic tricuspid regurgitation. Right ventricular systolic pressure is normal. Aortic Valve Aortic valve structure is normal. No aortic stenosis . No aortic regurgitation is present. Pulmonic Valve The pulmonic valve is not well visualized. Great Vessels The aortic root is normal size. IVC appears normal in size. IVC collapses normally with inspiration. Pericardium There is no pericardial effusion. Diastology Grade I diastolic dysfunction, (abnormal relaxation pattern). Interpretation Summary The left ventricle is normal in size. There is normal left ventricular wall thickness. Left ventricular systolic function is normal. The left ventricular wall motion is normal. Ejection Fraction = 55-60%. The right ventricular systolic function is normal. There is trace mitral regurgitation. Grade I diastolic dysfunction, (abnormal relaxation pattern). + + :Measurements with Normals ?: : ?(0.6-1.2 ?LVIDd: ?(3.5-5.7 ?? Ao root diam: ?(2.0-3.7 ?? : :IVSd: 1.0 cmcm) ? 4.6 cm ?cm) ?2.5 cm ? cm) ?: :LVPWd: ?(0.6-1.1 ?LVIDs: ?(3.1-4.6 ?? LA dimension: ?(1.9-4.0 ?? : :1.1 cm ?cm) ? 2.9 cm ?cm) ?3.2 cm ? cm) ?: + + MMode/2D Measurements & Calculations IVSs: 1.4 cm ? LVPWs: 1.3 cm FS: 37.1 % ?% IVS thick: 38.0 % ? EDV(Amira): 96.3 ml ? ESV(Tesharri): 31.7 ml ? Ao root area: 4.9 cm2 Doppler Measurements & Calculations MV E max radha: ? MV V2 max: ?MV P1/2t max radha: ?Ao V2 max: 87.5 cm/sec ? 146.0 cm/sec ?95.3 cm/sec ?147.0 cm/sec MV A max radha: ? MV max PG: ?MV P1/2t: 69.6 msec ??Ao max P.0 cm/sec ?8.5 mmHg ?MVA(P1/2t): 3.2 cm2 ??8.6 mmHg MV E/A: 0.64 ?MV V2 mean: ? MV dec slope: ?86.3 cm/sec ?MV mean PG: ? 401.0 cm/sec2 ?4.0 mmHg ?MV V2 VTI: 27.5 cm ? LV V1 max PG: ? PA V2 max: ?RV V1 max: ? TR max radha: 1.8 mmHg ?123.5 cm/sec ?58.7 cm/sec ?202.0 cm/sec LV V1 max: ?PA max PG: ? TR max P.9 cm/sec ? 6.2 mmHg ? 16.3 mmHg ? RVSP(TR): ? 19.3 mmHg ? RAP systole: 3.0 mmHg Electronically signed by: Mac Madrid MD 10/04/2021 12:43 PM Procedure Note Mac Madrid MD - 10/04/2021 Adult Echocardiogram + ----- -------+ :Name: LINDSAY PEDERSEN Study Date: 10/04/2021 Status: [facility]: : Patient Location: [facility] CARD TST^^^MHBHeight: 61in : : Weight: 218lbBP: 142/84 mmHg: :: 1955 Gender: Female BSA: 2.0 m2: :Reason For Study: murmur: :Ordering Physician: SHAZIA,: :RONNY: :Referring Physician:: :UNKNOWN, NOTINFILE: :Performed By: Anup Chávez,: :CHRIS, RVT: + ----- -------+ Procedure A two-dimensional transthoracic echocardiogram with color flow and Dopplerwas performed. The study was technically difficult due to patient's 'body habitus'. Left Ventricle The left ventricle is normal in size. There is normal left ventricularwall thickness. Left ventricular systolic function is normal. Ejection Fraction= 55-60%. The left ventricular wall motion is normal. Right Ventricle The right ventricle is normal size. The right ventricular systolicfunction is normal. Atria The left atrial size is normal. Right atrial size is normal. Mitral Valve The mitral valve is normal. There is no mitral valve stenosis. There istrace mitral regurgitation. Tricuspid Valve The tricuspid valve is normal. There is physiologic tricuspidregurgitation. Right ventricular systolic pressure is normal. Aortic Valve Aortic valve structure is normal. No aortic stenosis . No aorticregurgitation is present. Pulmonic Valve The pulmonic valve is not well visualized. Great Vessels The aortic root is normal size. IVC appears normal in size. IVCcollapses normally with inspiration. Pericardium There is no pericardial effusion. Diastology Grade I diastolic dysfunction, (abnormal relaxation pattern). Interpretation Summary The left ventricle is normal in size. There is normal left ventricular wall thickness. Left ventricular systolic function is normal. The left ventricular wall motion is normal. Ejection Fraction = 55-60%. The right ventricular systolic function is normal. There is trace mitral regurgitation. Grade I diastolic dysfunction, (abnormal relaxation pattern). + + :Measurements with Normals: : (0.6-1.2 LVIDd: (3.5-5.7 Ao root diam:(2.0-3.7 : :IVSd: 1.0 cmcm) 4.6 cm cm) 2.5 cm cm): :LVPWd: (0.6-1.1 LVIDs: (3.1-4.6 LA dimension:(1.9-4.0 : :1.1 cm cm) 2.9 cm cm) 3.2 cm cm): + + MMode/2D Measurements & Calculations IVSs: 1.4 cm LVPWs: 1.3 cm FS: 37.1 % % IVS thick: 38.0% EDV(Teich): 96.3 ml ESV(Teich): 31.7 ml Ao root area: 4.9 cm2 Doppler Measurements & Calculations MV E max radha: MV V2 max: MV P1/2t max radha: Ao V2 max: 87.5 cm/sec 146.0 cm/sec 95.3 cm/sec 147.0 cm/sec MV A max radha: MV max PG: MV P1/2t: 69.6 msec Ao max P.0 cm/sec 8.5 mmHg MVA(P1/2t): 3.2 cm2 8.6 mmHg MV E/A: 0.64 MV V2 mean: MV dec slope: 86.3 cm/sec MV mean P.0 cm/sec2 4.0 mmHg MV V2 VTI: 27.5 cm LV V1 max PG: PA V2 max: RV V1 max: TR max radha: 1.8 mmHg 123.5 cm/sec 58.7 cm/sec 202.0 cm/sec LV V1 max: PA max PG: TR max P.9 cm/sec 6.2 mmHg 16.3 mmHg RVSP(TR): 19.3 mmHg RAP systole: 3.0 mmHg Electronically signed by: Mac Madrid MD 10/04/2021 12:43 PM us Ronny Emily Shazia TERMINAL MAKEUP OPERATOR CV ECHO PROCEDURES Final Result documented in this encounter Visit Diagnoses Diagnosis Bilateral lower extremity edema Murmur, cardiac Undiagnosed cardiac murmurs Hypertension, unspecified type documented in this encounter Care Teams President Financial Institution Relationship Specialty Start Date End Date Ronny Mccray NP PCP - General Nurse Practitioner 10/04/21 06/11/22 documented as of this encounter
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
--- OUTSIDE RECORDS SUMMARY | 2024-03-23 01:52 | XMS_ITS | Encounter Summary ---
Author Organization [facility] Healthcare Address [address] [place] [address] Care Team Providers Care Certified Nutritionist Name Role Phone Bao Lyons DO Primary Care Provider [phone]- [phone] Bao Lyons DO Unavailable [phone] Reason for Visit * Diagnostic Imaging (Routine) - Closed Specialty Diagnoses / Procedures Referred By Kirt carvalho Referred To Contact Diagnoses Abnormal mammogram Procedures US Axillary Right US Breast Right Limited Jody Durán NP Phone: tel: fax: [facility] [address] [place] [address] Referral ID Status Reason Start Date Expiration Date Visits Re quested Visits Authorized [id number] Closed 05/03/2019 11/11/2020 1 1 Encounter Details Date Type Department Care Team (Late st Contact Info) Description 05/17/2019 1:01 PM MUFFLE OPERATOR - 05/17/2019 11:59 PM MUFFLE OPERATOR Hospital Encounter [facility] [address] [place] [address] Jody Durán NP [address] [place], [place] [id number] Abnormal mammogram Discharge Disposition: Discharge to home or self care Social History Tobacco Use Types Packs/Day Years Used Date Smoking Tobacco: Never Smokeless Tobacco: Never Alcohol Use Standard Drinks/Week Comments No 0 (1 standard drink = 0.6 oz pur e alcohol) Comments Unknown Sex and Gender Information Value Date Recorded Sex Assigned at Not on file Legal Sex Female 5:35 PM MUFFLE OPERATOR Gender Identity Not on file Sexual [...] 2 03/12/2018 12/30/19 2 0 influenza quadrivalent [id number] (FLUZONE) 60 mcg (15 mcg x 4)/0.5 mL syringe PHARMACIST ADMINISTERED IMMUNIZATION ADMINISTERED AT TIME OF DISPENSING 12/19/2018 0 influenza quadrivalent [id number] (Fluzone Quad [id number], PF,) 60 mcg (15 mcg x 4)/0.5 [...] RIGHT Schedule Routine, Read Routine (OP Routine) 05/17/2019 1:50 PM MUFFLE OPERATOR Abnormal mammogram documented in this encounter Results * US Axillary Right (05/17/2019 1:50 PM MUFFLE OPERATOR) Anatomical Region Laterality Modality Upper Extremities Right Ultrasound 05/17/2019 4:15 PM MUFFLE OPERATOR Impressions 05/17/2019 4:56 PM MUFFLE OPERATOR Borderline prominent right axillary lymph nodes. ??2 of the more superior nodes in the right axilla are definitely larger on the MLO view of the mammogram since mammogram of 04/16/2016, but somewhat similar nodes are seen in the left axilla. ??Given this mammographic change compared to 2017 and the history of recent inflammation due to spider bite, these are probably benign/reactive and six-month follow-up with right diagnostic mediolateral oblique mammogram is recommended. OVERALL FINAL ASSESSMENT: BI-RADS Category 3: Probably Benign. Recommend follow-up diagnostic breast imaging in ??6 months with right mediolateral oblique mammogram and right axillary ultrasound if indicated. Dictated by: Cheyanne Nicholas M.D. The radiology attending physician has personally reviewed this study, and had reviewed and/or edited this written report and agrees with it. Electronically signed by: Bethany Villalobos M.D. Narrative 05/17/2019 4:56 PM MUFFLE OPERATOR EXAMINATION: RIGHT AXILLARY ULTRASOUND HISTORY: 64-year-old woman recalled from screening mammography for enlarged lymph nodes in the right axilla. ??The patient reports she had a spider bite prior to her screening mammography that caused arm swelling and tenderness on the right side. COMPARISON: Mammogram dated 04/29/2019 04/16/2016 TECHNIQUE: Directed ultrasound evaluation of the RIGHT axilla was performed by a trained platinum and palladium kettle tender and Dr. Nicholas. ULTRASOUND FINDINGS: In the right axilla, there are several lymph nodes are borderline prominent, with increased cortical thickness, the largest showing cortical thickness at 4 mm. ??The most prominent node corresponds with one of the more prominent lymph nodes in the mid to upper right axilla which has clearly increased in size on the MLO view of the mammogram since 2017. ??However, the lymph nodes appear somewhat similar to the left axillary lymph nodes which were imaged for comparison. Procedure Note Bethany Villalobos MD - 05/17/2019 EXAMINATION: RIGHT AXILLARY ULTRASOUND HISTORY: 64-year-old woman recalled from screening mammography for enlarged lymph nodes in the right axilla. The patient reports she had a spider bite prior to her screening mammography that caused arm swelling and tenderness on the right side. COMPARISON: Mammogram dated 04/29/2019 04/16/2016 TECHNIQUE: Directed ultrasound evaluation of the RIGHT axilla was performed by a trained platinum and palladium kettle tender and Dr. Nicholas. ULTRASOUND FINDINGS: In the right axilla, there are several lymph nodes are borderline prominent, with increased cortical thickness, the largest showing cortical thickness at 4 mm. The most prominent node corresponds with one of the more prominent lymph nodes in the mid to upper right axilla which has clearly increased in size on the MLO view of the mammogram since 2017. However, the lymph nodes appear somewhat similar to the left axillary lymph nodes which were imaged for comparison. IMPRESSION: Borderline prominent right axillary lymph nodes. 2 of the more superior nodes in the right axilla are definitely larger on the MLO view of the mammogram since mammogram of 04/16/2016, but somewhat similar nodes are seen in the left axilla. Given this mammographic change compared to 2017 and the history of recent inflammation due to spider bite, these are probably benign/reactive and six-month follow-up with right diagnostic mediolateral oblique mammogram is recommended. OVERALL FINAL ASSESSMENT: BI-RADS Category 3: Probably Benign. Recommend follow-up diagnostic breast imaging in 6 months with right mediolateral oblique mammogram and right axillary ultrasound if indicated. Dictated by: Cheyanne Nicholas M.D. The radiology attending physician has personally reviewed this study, and had reviewed and/or edited this written report and agrees with it. Electronically signed by: Bethany Villalobos M.D. us Jody Durán NP IMG US PROCEDURES Final Result documented in this encounter Visit Diagnoses Diagnosis Abnormal mammogram Abnormal mammogram, unspecified documented in this encounter Care Teams Certified Nutritionist Relationship Specialty Start Date End Date Bao Lyons DO PCP - General 05/09/16 10/03/21 Bao Lyons DO 05/09/16 10/03/21 documented as of this encounter
--- OUTSIDE RECORDS SUMMARY | 2024-03-23 01:52 | XMS_ITS | Encounter Summary ---
Author Organization [facility] Address [address] [place] [address] Phone Care Team Providers Care Manager Program Management Name Role Phone Amina Mccray NP Primary Care Provider [phone] Reason for Visit * Reason Comments Follow-up * Consultation (Routine) - Closed Specialty Diagnoses / Procedures Referred By Kirt carvalho Referred To Contact Surgical Oncology Diagnoses Abnormal mammogram Bao Lyons DO Phone: tel: fax: [facility] (All Locations) Referral ID Status Reason Start Date Expiration Date V isits Requested Visits Authorized [id number] Closed Specialty Services Required 01/03/2021 02/02/2022 1 1 Encounter Details Date Type Department Care Team (Late st Contact Info) Description 01/09/2022 8:30 AM CDT Office Visit [facility] Surgery [address] [facility] 5th [place] [address] [place] [address] Jody Durán NP [address] [place] [address] Family history of breast cancer (Primary Dx); Abnormal mammogram; Encounter for screening mammogram for malignant neoplasm of breast Social History Tobacco Use Types Packs/Day Years Used Date Smoking Tobacco: Never Smokeless Tobacco: Never Tobacco Cessation:Counseling Given: Not Answered Alcohol Use Standard Drinks/Week Comments No 0 (1 standard drink = 0.6 oz pur e alcohol) Comments Unknown Sex and Gender Information Value Date Recorded Sex Assigned at Not on file Legal Sex Female 5:35 PM NIGHT MONITOR Gender Identity Not on file Sexual Orientation Not on file documented as of this encounter Last Filed Vital Signs Vital Sign Reading Time Taken Comments Blood Pressure - - Pulse - - Temperature - - Respiratory Rate - - Oxygen Saturation - - Inhaled Oxygen Concentration - - Weight 100.7 kg (222 lb) 01/09/2022 8:08 AM CDT Height 157.5 cm (5' 2 ) 01/09/2022 8:08 AM CDT Body Mass Index 40.6 01/09/2022 8:08 AM CDT documented in this encounter Progress Notes * Jody Durán NP - 01/09/2022 8:30 AM CDT NAME: Lindsay Pedersen : 1955 DATE: 01/09/2022 CHIEF COMPLAINT: Short interval follow up on breast imaging. HISTORY OF PRESENT ILLNESS: The patient is a 66 y.o. female who initially presented with a left breast mammographic abnormality. She underwent a left breast needle localization biopsy by Dr. Pickard on 05/14/16. 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 She does have a notable family history of breast cancer in that her sister was diagnosed withbreast cancer before the age of 50. She also has a paternal aunt that was diagnosed with breast cancer in her 30's and from this disease. Her screening mammogram in April 2019 was assigned a BI-RADS category 0 based on an area of axillary adenopathy in the right breast required additional ev aluation. She then underwent a right axillary ultrasound [...] On 12/30/2019 she return for short interval follow-up with bilateral diagnostic mammograms and a bilateral axillary [...] states that she is doing well. She has suffered several falls recently and plans to discuss further with her primary care physician. She denies any masses in eit her breast. She denies any change in the [...] and Proteinuria. Past Medical History: Diagnosis Date Benign neoplasm of breast Blood in urine Hypertension Proteinuria History reviewed. No pertinent surgical history. Social History Socioeconomic History Marital status: Spouse name: None Number of children: None Years of education: None Highest education level: None Occupational History None Tobacco Use Smoking status: Never Smoker Smokeless tobacco: Never Used Substance and Sexual Activity Alcohol use: No Drug use: No Sexual activity: None Other Topics Concern None Social History Narrative None Social Determinants of Health Financial Resource Strain: Difficulty of Paying Living Expenses: Not on file Food Insecurity: Worried About Running Out of Food in the Last Year: Not on file Ran Out of Food in the Last Year: Not on file Transportation Needs: Lack of Transportation (Medical): Not on file Lack of Transportation (Non-Medical): Not on file Physical Activity: Days of Exercise per Week: Not on file Minutes of Exercise per Session: Not on file Stress: Feeling of Stress : Not on file Social Connections: Frequency of Communication with Friends and Family: Not on file Frequency of Social Gatherings with Friends and Family: Not on file Attends Christianity Services: Not on file Active Member of Clubs or Organizations: Not on file Attends Club or Organization Meetings: Not on file Marital Status: Not on file Intimate Partner Violence: Fear of Current or Ex-Partner: Not on file Emotionally Abused: Not on file Physically Abused: Not on file Sexually Abused: Not on file Family History [...] QHS 03/02/18 Historical Provider, Allergies Allergen Reactions No Known Allergies Other [...] inclusion cyst. IMAGING: The patient underwent bilateral screening mammograms today, which I personally reviewed. The final interpretation is pending. IMPRESSION/RECOMMENDATION: Lindsay Pedersen is a 66 y.o. female with a history of a [...] and to alert me of any changes. Otherwise, I will plan to see her back [...] Family history of malignant neoplasm of breast Abnormal mammogram Abnormal mammogram, unspecified Encounter for screening mammogram for malignant neoplasm of breast documented in this encounter Discontinued Medications Medication Sig Discontinue Reason Start Date End Da te atorvastatin (LIPITOR) 10 mg tablet TK 1 T PO D 03/12/2018 01/09/2022 documented as of this encounter Historical Medications * This list may reflect changes made after this encounter. atorvastatin (LIPITOR) 20 mg tablet Take 1 tablet (20 mg total) by mouth daily 10/20/2021 Trulicity 0.75 mg/0.5 mL pen injector INJECT 0.5 MILLILITER (0.75MG) BY SUBCUTANEOUS ROUTE EVERY 7 DAYS 12/21/2021 3 Linzess 72 mcg capsule TAKE 1 CAPSULE BY MOUTH ONCE DAILY ON AN EMPTY STOMACH AT LEAST 30 MINUTES BEFORE 1ST MEAL OF THE DAY 11/23/2021 3 added in this encounter Orders Outpatient Referral Count Last Ordered Date Fir st Ordered Date AMB REFERRAL TO SURGICAL ONCOLOGY 1 022 documented in this encounter Care Teams Manager Program Management Relationship Specialty Start Date End Date Amina Mccray NP PCP - General Nurse Practitioner 10/04/21 06/11/22 documented as of this encounter
--- OUTSIDE RECORDS SUMMARY | 2024-03-23 01:52 | XMS_ITS | Encounter Summary ---
Author Organization [facility] Address [address] [place] [address] Phone Care Team Providers Care Manager Residential Name Role Phone Bao Lyons DO Primary Care Provider [phone]- [phone] Bao Lyons DO Unavailable [phone] Reason for Referral * Diagnostic Imaging (Routine) - Closed Specialty Diagnoses / Procedures Referred By Kirt carvalho Referred To Contact Diagnoses Family history of breast cancer Procedures Screening Mammogram Bilateral W Jody Engel NP Phone: tel: fax: [address] [address] Referral ID Status Reason Start Date Expiration Date Visits Re quested Visits Authorized [id number] Closed 04/29/2019 11/07/2020 1 1 GENCY MANAGEMENT COORDINATOR Encounter Details Date Type Department Care Team (Late st Contact Info) Description 04/29/2019 Orders Only [facility] Surgery [address] [facility] 5th [place] [address] Jody Durán NP [address] [place] [address] Family history of breast cancer (Primary Dx) Social History Tobacco Use Types Packs/Day Years Used Date Smoking Tobacco: Never Smokeless Tobacco: Never Alcohol Use Standard Drinks/Week Comments No 0 (1 standard drink = 0.6 oz pur e alcohol) Comments Unknown Sex and Gender Information Value Date Recorded Sex Assigned at Not on file Legal Sex Female 5:35 PM EMERGENCY MANAGEMENT COORDINATOR Gender Identity Not on file Sexual [...] compared to prior imaging studies performed at [facility] on 04/23/2018, 04/29/2019 and 12/30/2019. The breasts [...] compared to prior imaging studies performed at [facility] on 04/23/2018, 04/29/2019 and 12/30/2019. The breasts [...] Family history of malignant neoplasm of breast Family history of breast cancer Family history of malignant neoplasm of breast documented in this encounter Care Teams Manager Residential Relationship Specialty Start Date End Date Bao Lyons DO PCP - General 05/09/16 10/03/21 Bao Lyons DO 05/09/16 10/03/21 documented as of this encounter
--- OUTSIDE RECORDS SUMMARY | 2024-03-23 01:52 | XMS_ITS | Encounter Summary ---
Author Organization [facility] Healthcare Address [address] [place] [address] Care Team Providers Care Passenger Train Braker Name Role Phone Amina Mccray NP Primary Care Provider [phone] Reason for Referral * Diagnostic Imaging (Routine) - Closed Specialty Diagnoses / Procedures Referred By Kirt carvalho Referred To Contact Diagnoses Abnormal mammogram Procedures Screening Mammogram Bilateral W Jody Engel NP Phone: tel: fax: [address] [address] Referral ID Status Reason Start Date Expiration Date Visits Re quested Visits Authorized [id number] Closed 12/25/2020 01/24/2022 1 1 Reason for Visit * Diagnostic Imaging (Routine) - Closed Specialty Diagnoses / Procedures Referred By Kirt carvalho Referred To Contact Diagnoses Abnormal mammogram Procedures Screening Mammogram Bilateral W Jody Engel NP Phone: tel: fax: [address] [address] Referral ID Status Reason Start Date Expiration Date Visits Re quested Visits Authorized [id number] Closed 12/25/2020 01/24/2022 1 1 Encounter Details Date Type Department Care Team ([facility] st Contact Info) Description 01/09/2022 8:34 AM CDT - 01/09/2022 11:59 PM CDT Hospital Encounter [facility] [place] [address] Jody Durán NP [address] [place] [address] Abnormal mammogram Discharge Disposition: Discharge to home or self care Social History Tobacco Use Types Packs/Day Years Used Date Smoking Tobacco: Never Smokeless Tobacco: Never Alcohol Use Standard Drinks/Week Comments No 0 (1 standard drink = 0.6 oz pur e alcohol) Comments Unknown Sex and Gender Information Value Date Recorded Sex Assigned at Not on file Legal Sex Female 5:35 PM BASKET BOTTOM MACHINE OPERATOR Gender Identity Not on file [...] PREM Schedule Routine, Read Routine (OP Routine) 01/09/2022 8:57 AM CDT Abnormal mammogram documented in this encounter Results * Screening [...] studies performed at [facility] on 04/29/2019, 12/30/2019 and 01/03/2021. The breasts [...] studies performed at [facility] on 04/29/2019, 12/30/2019 and 01/03/2021. The breasts [...] unspecified documented in this encounter Care Teams Passenger Train Braker Relationship Specialty Start Date End Date Amina Mccray NP PCP - General Nurse Practitioner 10/04/21 06/11/22 documented as of this encounter
--- OUTSIDE RECORDS SUMMARY | 2024-03-23 01:53 | XMS_ITS | Encounter Summary ---
Author Organization [facility] Facility Care Team Providers Care Hazardous Material Specialist Name Role Phone Unavailable Primary Care Provider Unavailabl e Encounter Details Date Type Department Care Team (Late st Contact Info) Description 04/28/2014 7:32 AM BUTADIENE CONVERTOR OPERATOR - 04/28/2014 11:59 PM BUTADIENE CONVERTOR OPERATOR Hospital Encounter [facility] Anna Tran MD [address] [address] Solitary cyst of breast Social History Tobacco Use Types Packs/Day Years Used Date Smoking Tobacco: Never Comments Unknown Sex and Gender Information Value Date Recorded Sex Assigned at Not on file Legal Sex Female 5:35 PM BUTADIENE CONVERTOR OPERATOR Gender Identity Not on file Sexual Orientation Not on file documented as of this encounter Plan of Treatment Not on file documented as of this encounter Procedures Procedure Name Priority Date/Time Associated Diagnosis Comments US BREAST LIMITED Routine 04/28/2014 9:5 3 AM BUTADIENE CONVERTOR OPERATOR DIAGNOSTIC MAMMOGRAM BILATERAL W LANE Routine 04/28/2014 9:35 AM BUTADIENE CONVERTOR OPERATOR DIAGNOSTIC MAMMOGRAM 2D BILATERAL Routine 04/28/2014 9:35 AM BUTADIENE CONVERTOR OPERATOR documented in this encounter Results * US Breast Limited (04/28/2014 9:53 AM BUTADIENE CONVERTOR OPERATOR) Anatomical Region Laterality Modality Breast N/A Ultrasound 04/28/2014 9:53 AM BUTADIENE CONVERTOR OPERATOR Narrative 04/29/2014 9:26 AM BUTADIENE CONVERTOR OPERATOR FADI TYSON M.D. SUE KENNEY, FINAL REPORT The radiology attending physician has personally reviewed this study, and has reviewed and/or edited this written report and agrees with it. ACC# ??Date Time ??Exam [id number] Apr 28, 2014 09:35:00 [facility] [address] Nick [id number] Apr 28, 2014 09:35:00 [facility] [address] Diag Mammogram Bilateral ?? Technologist(s): Almita Anguiano; ; [id number] Apr 28, 2014 09:53:00 [facility] [address] Breast US unilateral, ltd EXAMINATION: ?? BILATERAL FULL FIELD DIGITAL DIAGNOSTIC MAMMOGRAM WITH CAD, BILATERAL DIGITAL BREAST TOMOSYNTHESIS, LEFT BREAST SONOGRAM HISTORY: This 59-year-old woman complains of diffuse right breast pain since the summer with occasional swelling of the breast if she sleeps prone. ??She denies having any palpable lump of concern in either breast. TECHNIQUE: ??Full field digital craniocaudal and mediolateral oblique views of both breasts and additional views were obtained on a total of 6 images. ??Computer Aided Detection was performed with Yurpy.3 version 9.3. ??Digital bilateral breast tomosynthesis was also performed and reviewed as a part of this examination. COMPARISON: Comparison is made with prior mammograms dated 09/04/2010, 03/12/2010, 05/09/2009, and 04/27/2009. BREAST PARENCHYMAL COMPOSITION: The breasts are heterogeneously dense, which may obscure small masses. MAMMOGRAM FINDINGS: ??There is a possible new asymmetry in the central, slightly inner left breast at middle depth on the initial full craniocaudal view, but no suspicious mass or architectural distortion is confirmed in this area on spot compression magnification views. No new suspicious abnormality is seen within the right breast on mammogram. SONOGRAM FINDINGS: Directed sonogram of the entire inner left breast, and of the upper central, central, and lower central left breast was performed. ??Multiple subcentimeter cysts and 1.2 cm and smaller groups of cysts are noted in the inner left breast. No suspicious sonographic findings identified in the inner and central left breast. Directed physical examination of the entire inner left breast, and of the upper central, central, and lower central left breast demonstrates no suspicious palpable abnormality at this time. IMPRESSION: ?? 1) No suspicious abnormality. 2) Multiple small cysts and groups of cysts. 3) Any further evaluation/management of the patient's reported diffuse right breast pain should be based on clinical assessment at this time. Continued clinical followup is recommended. 4) Annual screening mammography is recommended. OVERALL FINAL ASSESSMENT: BI-RADS Category 2: Benign finding. Requested By: Dictated By: ?? SUE KENNEY, ?? on Apr ??2014 11:27A This document has been electronically signed by: FADI TYSON M.D. on Apr ??2014 11:44A Addendum Dictated by: FADI TYSON M.D. on Apr ??2014 ??9:26A This Addendum has been electronically signed by: FADI TYSON M.D. on Apr ??2014 ??9:26A Procedure Note Provider, MD Lorena - 07/27/2016 FADI TYSON M.D. SUE KENNEY, FINAL REPORT The radiology attending physician has personally reviewed this study, and has reviewed and/or edited this written report and agrees with it. ACC# Date Time Exam [id number] Apr 28, 2014 09:35:00 [facility] [address] Nick [id number] Apr 28, 2014 09:35:00 [facility] [address] Diag Mammogram Bilateral Technologist(s): Almita Anguiano; ; [id number] Apr 28, 2014 09:53:00 [facility] [address] Breast US unilateral, ltd EXAMINATION: BILATERAL FULL FIELD DIGITAL DIAGNOSTIC MAMMOGRAM WITH CAD, BILATERAL DIGITAL BREAST TOMOSYNTHESIS, LEFT BREAST SONOGRAM HISTORY: This 59-year-old woman complains of diffuse right breast pain since the summer with occasional swelling of the breast if she sleeps prone. She denies having any palpable lump of concern in either breast. TECHNIQUE: Full field digital craniocaudal and mediolateral oblique views of both breasts and additional views were obtained on a total of 6 images. Computer Aided Detection was performed with Yurpy.3 version 9.3. Digital bilateral breast tomosynthesis was also performed and reviewed as a part of this examination. COMPARISON: Comparison is made with prior mammograms dated 09/04/2010, 03/12/2010, 05/09/2009, and 04/27/2009. BREAST PARENCHYMAL COMPOSITION: The breasts are heterogeneously dense, which may obscure small masses. MAMMOGRAM FINDINGS: There is a possible new asymmetry in the central, slightly inner left breast at middle depth on the initial full craniocaudal view, but no suspicious mass or architectural distortion is confirmed in this area on spot compression magnification views. No new suspicious abnormality is seen within the right breast on mammogram. SONOGRAM FINDINGS: Directed sonogram of the entire inner left breast, and of the upper central, central, and lower central left breast was performed. Multiple subcentimeter cysts and 1.2 cm and smaller groups of cysts are noted in the inner left breast. No suspicious sonographic findings identified in the inner and central left breast. Directed physical examination of the entire inner left breast, and of the upper central, central, and lower central left breast demonstrates no suspicious palpable abnormality at this time. IMPRESSION: 1) No suspicious abnormality. 2) Multiple small cysts and groups of cysts. 3) Any further evaluation/management of the patient's reported diffuse right breast pain should be based on clinical assessment at this time. Continued clinical followup is recommended. 4) Annual screening mammography is recommended. OVERALL FINAL ASSESSMENT: BI-RADS Category 2: Benign finding. Requested By: Dictated By: SUE KENNEY on Apr 28 2014 11:27A This document has been electronically signed by: FADI TYSON M.D. on Apr 28 2014 11:44A Addendum Dictated by: FADI TYSON M.D. on Apr 29 2014 9:26A This Addendum has been electronically signed by: FADI TYSON M.D. on Apr 29 2014 9:26A us Historical Provider MD ANDRADE US PROCEDURES Final R esult * Diagnostic Mammogram Bilateral W Lane (04/28/2014 9:35 AM BUTADIENE CONVERTOR OPERATOR) Anatomical Region Laterality Modality Breast Bilateral Mammography 04/28/2014 9:35 AM BUTADIENE CONVERTOR OPERATOR Narrative 04/29/2014 9:26 AM BUTADIENE CONVERTOR OPERATOR Orquidea VAZQUEZ, FINAL REPORT The radiology attending physician has personally reviewed this study, and has reviewed and/or edited this written report and agrees with it. ACC# ??Date Time ??Exam [id number] Apr 28, 2014 09:35:00 [facility] [address] Nick [id number] Apr 28, 2014 09:35:00 [facility] [address] Diag Mammogram Bilateral ?? Technologist(s): Almita Anguiano; ; [id number] Apr 28, 2014 09:53:00 [facility] [address] Breast US unilateral, ltd EXAMINATION: ?? BILATERAL FULL FIELD DIGITAL DIAGNOSTIC MAMMOGRAM WITH CAD, BILATERAL DIGITAL BREAST TOMOSYNTHESIS, LEFT BREAST SONOGRAM HISTORY: This 59-year-old woman complains of diffuse right breast pain since the summer with occasional swelling of the breast if she sleeps prone. ??She denies having any palpable lump of concern in either breast. TECHNIQUE: ??Full field digital craniocaudal and mediolateral oblique views of both breasts and additional views were obtained on a total of 6 images. ??Computer Aided Detection was performed with Yurpy.3 version 9.3. ??Digital bilateral breast tomosynthesis was also performed and reviewed as a part of this examination. COMPARISON: Comparison is made with prior mammograms dated 09/04/2010, 03/12/2010, 05/09/2009, and 04/27/2009. BREAST PARENCHYMAL COMPOSITION: The breasts are heterogeneously dense, which may obscure small masses. MAMMOGRAM FINDINGS: ??There is a possible new asymmetry in the central, slightly inner left breast at middle depth on the initial full craniocaudal view, but no suspicious mass or architectural distortion is confirmed in this area on spot compression magnification views. No new suspicious abnormality is seen within the right breast on mammogram. SONOGRAM FINDINGS: Directed sonogram of the entire inner left breast, and of the upper central, central, and lower central left breast was performed. ??Multiple subcentimeter cysts and 1.2 cm and smaller groups of cysts are noted in the inner left breast. No suspicious sonographic findings identified in the inner and central left breast. Directed physical examination of the entire inner left breast, and of the upper central, central, and lower central left breast demonstrates no suspicious palpable abnormality at this time. IMPRESSION: ?? 1) No suspicious abnormality. 2) Multiple small cysts and groups of cysts. 3) Any further evaluation/management of the patient's reported diffuse right breast pain should be based on clinical assessment at this time. Continued clinical followup is recommended. 4) Annual screening mammography is recommended. OVERALL FINAL ASSESSMENT: BI-RADS Category 2: Benign finding. Requested By: Dictated By: ?? SUE KENNEY, ?? on Apr ??2014 11:27A This document has been electronically signed by: FADI TYSON M.D. on Apr ??2014 11:44A Addendum Dictated by: FADI TYSON M.D. on Apr ??2014 ??9:26A This Addendum has been electronically signed by: FADI TYSON M.D. on Apr ??2014 ??9:26A Procedure Note Provider, MD Lorena - 07/27/2016 FADI TYSON M.D. SUE KENNEY, FINAL REPORT The radiology attending physician has personally reviewed this study, and has reviewed and/or edited this written report and agrees with it. ACC# Date Time Exam [id number] Apr 28, 2014 09:35:00 [facility] [address] [place] [id number] Apr 28, 2014 09:35:00 [facility] [address] Diag Mammogram Bilateral Technologist(s): Almita Anguiano; ; [id number] Apr 28, 2014 09:53:00 [facility] [address] Breast US unilateral, ltd EXAMINATION: BILATERAL FULL FIELD DIGITAL DIAGNOSTIC MAMMOGRAM WITH CAD, BILATERAL DIGITAL BREAST TOMOSYNTHESIS, LEFT BREAST SONOGRAM HISTORY: This 59-year-old woman complains of diffuse right breast pain since the summer with occasional swelling of the breast if she sleeps prone. She denies having any palpable lump of concern in either breast. TECHNIQUE: Full field digital craniocaudal and mediolateral oblique views of both breasts and additional views were obtained on a total of 6 images. Computer Aided Detection was performed with Yurpy.3 version 9.3. Digital bilateral breast tomosynthesis was also performed and reviewed as a part of this examination. COMPARISON: Comparison is made with prior mammograms dated 09/04/2010, 03/12/2010, 05/09/2009, and 04/27/2009. BREAST PARENCHYMAL COMPOSITION: The breasts are heterogeneously dense, which may obscure small masses. MAMMOGRAM FINDINGS: There is a possible new asymmetry in the central, slightly inner left breast at middle depth on the initial full craniocaudal view, but no suspicious mass or architectural distortion is confirmed in this area on spot compression magnification views. No new suspicious abnormality is seen within the right breast on mammogram. SONOGRAM FINDINGS: Directed sonogram of the entire inner left breast, and of the upper central, central, and lower central left breast was performed. Multiple subcentimeter cysts and 1.2 cm and smaller groups of cysts are noted in the inner left breast. No suspicious sonographic findings identified in the inner and central left breast. Directed physical examination of the entire inner left breast, and of the upper central, central, and lower central left breast demonstrates no suspicious palpable abnormality at this time. IMPRESSION: 1) No suspicious abnormality. 2) Multiple small cysts and groups of cysts. 3) Any further evaluation/management of the patient's reported diffuse right breast pain should be based on clinical assessment at this time. Continued clinical followup is recommended. 4) Annual screening mammography is recommended. OVERALL FINAL ASSESSMENT: BI-RADS Category 2: Benign finding. Requested By: Dictated By: SUE KENNEY, on Apr 28 2014 11:27A This document has been electronically signed by: FADI TYSON M.D. on Apr 28 2014 11:44A Addendum Dictated by: FADI TYSON M.D. on Apr 29 2014 9:26A This Addendum has been electronically signed by: FADI TYSON M.D. on Apr 29 2014 9:26A us Historical Provider MD ANDRADE MAMMO PROCEDURES Adamaris l Result * DIAGNOSTIC MAMMOGRAM 2D BILATERAL (04/28/2014 9:35 AM BUTADIENE CONVERTOR OPERATOR) Anatomical Region Laterality Modality Breast Bilateral Mammography 04/28/2014 9:35 AM BUTADIENE CONVERTOR OPERATOR Narrative 04/29/2014 9:26 AM BUTADIENE CONVERTOR OPERATOR FADI TYSON M.D. SUE KENNEY, FINAL REPORT The radiology attending physician has personally reviewed this study, and has reviewed and/or edited this written report and agrees with it. ACC# ??Date Time ??Exam [id number] Apr 28, 2014 09:35:00 [facility] [address] Nick [id number] Apr 28, 2014 09:35:00 [facility] [address] Diag Mammogram Bilateral ?? Technologist(s): Almita Anguiano; ; [id number] Apr 28, 2014 09:53:00 [facility] [address] Breast US unilateral, ltd EXAMINATION: ?? BILATERAL FULL FIELD DIGITAL DIAGNOSTIC MAMMOGRAM WITH CAD, BILATERAL DIGITAL BREAST TOMOSYNTHESIS, LEFT BREAST SONOGRAM HISTORY: This 59-year-old woman complains of diffuse right breast pain since the summer with occasional swelling of the breast if she sleeps prone. ??She denies having any palpable lump of concern in either breast. TECHNIQUE: ??Full field digital craniocaudal and mediolateral oblique views of both breasts and additional views were obtained on a total of 6 images. ??Computer Aided Detection was performed with Yurpy.3 version 9.3. ??Digital bilateral breast tomosynthesis was also performed and reviewed as a part of this examination. COMPARISON: Comparison is made with prior mammograms dated 09/04/2010, 03/12/2010, 05/09/2009, and 04/27/2009. BREAST PARENCHYMAL COMPOSITION: The breasts are heterogeneously dense, which may obscure small masses. MAMMOGRAM FINDINGS: ??There is a possible new asymmetry in the central, slightly inner left breast at middle depth on the initial full craniocaudal view, but no suspicious mass or architectural distortion is confirmed in this area on spot compression magnification views. No new suspicious abnormality is seen within the right breast on mammogram. SONOGRAM FINDINGS: Directed sonogram of the entire inner left breast, and of the upper central, central, and lower central left breast was performed. ??Multiple subcentimeter cysts and 1.2 cm and smaller groups of cysts are noted in the inner left breast. No suspicious sonographic findings identified in the inner and central left breast. Directed physical examination of the entire inner left breast, and of the upper central, central, and lower central left breast demonstrates no suspicious palpable abnormality at this time. IMPRESSION: ?? 1) No suspicious abnormality. 2) Multiple small cysts and groups of cysts. 3) Any further evaluation/management of the patient's reported diffuse right breast pain should be based on clinical assessment at this time. Continued clinical followup is recommended. 4) Annual screening mammography is recommended. OVERALL FINAL ASSESSMENT: BI-RADS Category 2: Benign finding. Requested By: Dictated By: ?? SUE KENNEY, ?? on Apr ??2014 11:27A This document has been electronically signed by: FADI TYSON M.D. on Apr ??2014 11:44A Addendum Dictated by: FADI TYSON M.D. on Apr ??2014 ??9:26A This Addendum has been electronically signed by: FADI TYSON M.D. on Apr ??2014 ??9:26A Procedure Note Provider, MD Lorena - 07/27/2016 FADI TYSON M.D. SUE KENNEY, FINAL REPORT The radiology attending physician has personally reviewed this study, and has reviewed and/or edited this written report and agrees with it. ACC# Date Time Exam [id number] Apr 28, 2014 09:35:00 [facility] [address] Nick [id number] Apr 28, 2014 09:35:00 [facility] [address] Diag Mammogram Bilateral Technologist(s): Almita Anguiano; ; [id number] Apr 28, 2014 09:53:00 [facility] [address] Breast US unilateral, ltd EXAMINATION: BILATERAL FULL FIELD DIGITAL DIAGNOSTIC MAMMOGRAM WITH CAD, BILATERAL DIGITAL BREAST TOMOSYNTHESIS, LEFT BREAST SONOGRAM HISTORY: This 59-year-old woman complains of diffuse right breast pain since the summer with occasional swelling of the breast if she sleeps prone. She denies having any palpable lump of concern in either breast. TECHNIQUE: Full field digital craniocaudal and mediolateral oblique views of both breasts and additional views were obtained on a total of 6 images. Computer Aided Detection was performed with Yurpy.3 version 9.3. Digital bilateral breast tomosynthesis was also performed and reviewed as a part of this examination. COMPARISON: Comparison is made with prior mammograms dated 09/04/2010, 03/12/2010, 05/09/2009, and 04/27/2009. BREAST PARENCHYMAL COMPOSITION: The breasts are heterogeneously dense, which may obscure small masses. MAMMOGRAM FINDINGS: There is a possible new asymmetry in the central, slightly inner left breast at middle depth on the initial full craniocaudal view, but no suspicious mass or architectural distortion is confirmed in this area on spot compression magnification views. No new suspicious abnormality is seen within the right breast on mammogram. SONOGRAM FINDINGS: Directed sonogram of the entire inner left breast, and of the upper central, central, and lower central left breast was performed. Multiple subcentimeter cysts and 1.2 cm and smaller groups of cysts are noted in the inner left breast. No suspicious sonographic findings identified in the inner and central left breast. Directed physical examination of the entire inner left breast, and of the upper central, central, and lower central left breast demonstrates no suspicious palpable abnormality at this time. IMPRESSION: 1) No suspicious abnormality. 2) Multiple small cysts and groups of cysts. 3) Any further evaluation/management of the patient's reported diffuse right breast pain should be based on clinical assessment at this time. Continued clinical followup is recommended. 4) Annual screening mammography is recommended. OVERALL FINAL ASSESSMENT: BI-RADS Category 2: Benign finding. Requested By: Dictated By: SUE KENNEY, on Apr 28 2014 11:27A This document has been electronically signed by: FADI TYSON M.D. on Apr 28 2014 11:44A Addendum Dictated by: FADI TYSON M.D. on Apr 29 2014 9:26A This Addendum has been electronically signed by: FADI TYSON M.D. on Apr 29 2014 9:26A us Historical Provider MD ANDRADE MAMMO PROCEDURES Adamaris l Result documented in this encounter Visit Diagnoses Diagnosis Solitary cyst of breast documented in this encounter
--- OUTSIDE RECORDS SUMMARY | 2024-03-23 01:53 | XMS_ITS | Encounter Summary ---
Author Organization [facility] Care Team Providers Care Hardwood Floor Sander Name Role Phone Bao Lyons DO Primary Care Provider +1- [phone] Encounter Details Date Type Department Care Team (Late st Contact Info) Description 04/23/2016 12:54 PM COMPUTER SECURITY SPECIALIST - 04/23/2016 11:59 PM COMPUTER SECURITY SPECIALIST Hospital Encounter [facility] Bao Lyons, DO [address] [facility] [address] [address] Inconclusive mammogram; Breast lump Social History Tobacco Use Types Packs/Day Years Used Date Smoking Tobacco: Never Comments Unknown Sex and Gender Information Value Date Recorded Sex Assigned at Not on file Legal Sex Female 5:35 PM COMPUTER SECURITY SPECIALIST Gender Identity Not on file Sexual Orientation Not on file documented as of this encounter Plan of Treatment Not on file documented as of this encounter Procedures Procedure Name Priority Date/Time Associated Diagnosis Comments US BREAST LIMITED Routine 04/23/2016 1:5 9 PM COMPUTER SECURITY SPECIALIST DIAGNOSTIC MAMMOGRAM LEFT W PREM Routine 04/23/2016 1:30 PM COMPUTER SECURITY SPECIALIST DIAGNOSTIC MAMMOGRAM LEFT W PREM Routine 04/23/2016 1:30 PM COMPUTER SECURITY SPECIALIST documented in this encounter Results * US Breast Limited (04/23/2016 1:59 PM COMPUTER SECURITY SPECIALIST) Anatomical Region Laterality Modality Breast N/A Ultrasound 04/23/2016 1:59 PM COMPUTER SECURITY SPECIALIST Narrative 04/23/2016 3:10 PM COMPUTER SECURITY SPECIALIST DASHA HAYS M.D. TARA LECHUGA M.D. FINAL REPORT The radiology attending physician has personally reviewed this study, and has reviewed and/or edited this written report and agrees with it. ACC# ??Date Time ??Exam [id number] Apr 23, 2016 13:30:00 [facility] [id number] Diag Mamm, inc CAD, unilat L ?? Technologist(s): Brittany Alfaro; ; [id number] Apr 23, 2016 13:30:00 [facility] [address] DigBreast Prem uni L ?? Technologist(s): Brittany Alfaro; ; [id number] Apr 23, 2016 13:59:00 [facility] [id number] Breast US unilateral, ltd L EXAMINATION: ?? LEFT FULL FIELD DIGITAL DIAGNOSTIC MAMMOGRAM WITH CAD AND LEFT DIGITAL BREAST TOMOSYNTHESIS, AND LEFT BREAST SONOGRAM HISTORY: Abnormal screening mammogram. Recent screening mammogram demonstrated a 17 mm irregular mass in the central left breast. ?? MAMMOGRAM TECHNIQUE: Additional views of the left breast were obtained utilizing full field digital mammography. Computer Aided Detection was performed. ??Digital breast tomosynthesis was performed and reviewed as a part of this examination. COMPARISON: 04/16/2016, 04/28/2014. BREAST PARENCHYMAL COMPOSITION: There are scattered areas of fibroglandular density. MAMMOGRAM FINDINGS: A 17 mm irregular mass in the upper central left breast persists on additional views. SONOGRAM FINDINGS: Directed ultrasound examination of the upper central left breast was performed. ??At 11:30 o'clock position, 7 cm from the nipple there is a 11 x 10 x 11 mm hypoechoic, irregular, shadowing mass with indistinct margins. Directed physical examination of the area of concern demonstrates no definite suspicious palpable abnormality at this time. Directed sonogram of the left axilla does not show any abnormal appearing lymph nodes. IMPRESSION: ?? An 11 mm irregular mass at 11:30 o'clock position in the left breast is of high suspicion for malignancy and should be biopsied. The above findings and recommendations were discussed with the patient at the conclusion of the examination, and were subsequently telephoned to Crystal in the office of the referring physician, Dr. Bao Lyons, by Dr. Lechuga on 04/23/2016 at 2:30 p.m. ??The patient has been scheduled to return to the Breast [facility] for an ultrasound-guided core needle biopsy of the left breast on 04/30/2016 at 7:15 a.m. OVERALL FINAL ASSESSMENT: BI-RADS Category 4C: Suspicious abnormality. High suspicion for malignancy. Requested By: Dictated By: ?? TARA LECHUGA M.D. ??on Apr 23 2016 ??2:40P This document has been electronically signed by: DASHA HAYS M.D. on Apr 23 2016 ??3:10P [id number] Procedure Note Provider, MD Lorena - 07/30/2016 DASHA HAYS M.D. TARA LECHUGA M.D. FINAL REPORT The radiology attending physician has personally reviewed this study, and has reviewed and/or edited this written report and agrees with it. ACC# Date Time Exam [id number] Apr 23, 2016 13:30:00 [facility] [id number] Diag Mamm, inc CAD, unilat L Technologist(s): Brittany Alfaro; ; [id number] Apr 23, 2016 13:30:00 [facility] [address]63 DigBreast Prem uni L Technologist(s): Brittany Alfaro; ; [id number] Apr 23, 2016 13:59:00 [facility] [address] Breast US unilateral, ltd L EXAMINATION: LEFT FULL FIELD DIGITAL DIAGNOSTIC MAMMOGRAM WITH CAD AND LEFT DIGITAL BREAST TOMOSYNTHESIS, AND LEFT BREAST SONOGRAM HISTORY: Abnormal screening mammogram. Recent screening mammogram demonstrated a 17 mm irregular mass in the central left breast. MAMMOGRAM TECHNIQUE: Additional views of the left breast were obtained utilizing full field digital mammography. Computer Aided Detection was performed. Digital breast tomosynthesis was performed and reviewed as a part of this examination. COMPARISON: 04/16/2016, 04/28/2014. BREAST PARENCHYMAL COMPOSITION: There are scattered areas of fibroglandular density. MAMMOGRAM FINDINGS: A 17 mm irregular mass in the upper central left breast persists on additional views. SONOGRAM FINDINGS: Directed ultrasound examination of the upper central left breast was performed. At 11:30 o'clock position, 7 cm from the nipple there is a 11 x 10 x 11 mm hypoechoic, irregular, shadowing mass with indistinct margins. Directed physical examination of the area of concern demonstrates no definite suspicious palpable abnormality at this time. Directed sonogram of the left axilla does not show any abnormal appearing lymph nodes. IMPRESSION: An 11 mm irregular mass at 11:30 o'clock position in the left breast is of high suspicion for malignancy and should be biopsied. The above findings and recommendations were discussed with the patient at the conclusion of the examination, and were subsequently telephoned to Crystal in the office of the referring physician, Dr. Bao Lyons, by Dr. Lechuga on 04/23/2016 at 2:30 p.m. The patient has been scheduled to return to the Breast [facility] for an ultrasound-guided core needle biopsy of the left breast on 04/30/2016 at 7:15 a.m. OVERALL FINAL ASSESSMENT: BI-RADS Category 4C: Suspicious abnormality. High suspicion for malignancy. Requested By: Dictated By: TARA LECHUGA M.D. on Apr 23 2016 2:40P This document has been electronically signed by: DASHA HAYS M.D. on Apr 23 2016 3:10P [id number] us Historical Provider MD ANDRADE US PROCEDURES Final R esult * Diagnostic Mammogram Left W Prem (04/23/2016 1:30 PM COMPUTER SECURITY SPECIALIST) Anatomical Region Laterality Modality Breast Left Mammography 04/23/2016 1:30 PM COMPUTER SECURITY SPECIALIST Narrative 04/23/2016 3:10 PM COMPUTER SECURITY SPECIALIST Orquidea DE LA CRUZ M.D. FINAL REPORT The radiology attending physician has personally reviewed this study, and has reviewed and/or edited this written report and agrees with it. ACC# ??Date Time ??Exam [id number] Apr 23, 2016 13:30:00 [facility] [id number] Diag Mamm, inc CAD, unilat L ?? Technologist(s): Brittany Alfaro; ; [id number] Apr 23, 2016 13:30:00 [facility] [address]342 DigBreast Prem uni L ?? Technologist(s): Brittany Alfaro; ; [id number] Apr 23, 2016 13:59:00 [facility] [address]47 Breast US unilateral, ltd L EXAMINATION: ?? LEFT FULL FIELD DIGITAL DIAGNOSTIC MAMMOGRAM WITH CAD AND LEFT DIGITAL BREAST TOMOSYNTHESIS, AND LEFT BREAST SONOGRAM HISTORY: Abnormal screening mammogram. Recent screening mammogram demonstrated a 17 mm irregular mass in the central left breast. ?? MAMMOGRAM TECHNIQUE: Additional views of the left breast were obtained utilizing full field digital mammography. Computer Aided Detection was performed. ??Digital breast tomosynthesis was performed and reviewed as a part of this examination. COMPARISON: 04/16/2016, 04/28/2014. BREAST PARENCHYMAL COMPOSITION: There are scattered areas of fibroglandular density. MAMMOGRAM FINDINGS: A 17 mm irregular mass in the upper central left breast persists on additional views. SONOGRAM FINDINGS: Directed ultrasound examination of the upper central left breast was performed. ??At 11:30 o'clock position, 7 cm from the nipple there is a 11 x 10 x 11 mm hypoechoic, irregular, shadowing mass with indistinct margins. Directed physical examination of the area of concern demonstrates no definite suspicious palpable abnormality at this time. Directed sonogram of the left axilla does not show any abnormal appearing lymph nodes. IMPRESSION: ?? An 11 mm irregular mass at 11:30 o'clock position in the left breast is of high suspicion for malignancy and should be biopsied. The above findings and recommendations were discussed with the patient at the conclusion of the examination, and were subsequently telephoned to Katarina in the office of the referring physician, Dr. Bao Lyons, by Dr. Lechuga on 04/23/2016 at 2:30 p.m. ??The patient has been scheduled to return to the Breast [facility] for an ultrasound-guided core needle biopsy of the left breast on 04/30/2016 at 7:15 a.m. OVERALL FINAL ASSESSMENT: BI-RADS Category 4C: Suspicious abnormality. High suspicion for malignancy. Requested By: Dictated By: ?? TARA LECHUGA M.D. ??on Apr 23 2016 ??2:40P This document has been electronically signed by: DASHA HAYS M.D. on Apr 23 2016 ??3:10P Procedure Note Provider, MD Lorena - 07/30/2016 DASHA HAYS M.D. TARA LECHUGA M.D. FINAL REPORT The radiology attending physician has personally reviewed this study, and has reviewed and/or edited this written report and agrees with it. ACC# Date Time Exam [id number] Apr 23, 2016 13:30:00 [facility] [address] Diag Mamm, inc CAD, unilat L Technologist(s): Brittany Alfaro; ; [id number] Apr 23, 2016 13:30:00 [facility] 65861 DigBreast Prem uni L Technologist(s): Brittany Alfaro; ; [id number] Apr 23, 2016 13:59:00 [facility] 301[address] Breast US unilateral, ltd L EXAMINATION: LEFT FULL FIELD DIGITAL DIAGNOSTIC MAMMOGRAM WITH CAD AND LEFT DIGITAL BREAST TOMOSYNTHESIS, AND LEFT BREAST SONOGRAM HISTORY: Abnormal screening mammogram. Recent screening mammogram demonstrated a 17 mm irregular mass in the central left breast. MAMMOGRAM TECHNIQUE: Additional views of the left breast were obtained utilizing full field digital mammography. Computer Aided Detection was performed. Digital breast tomosynthesis was performed and reviewed as a part of this examination. COMPARISON: 04/16/2016, 04/28/2014. BREAST PARENCHYMAL COMPOSITION: There are scattered areas of fibroglandular density. MAMMOGRAM FINDINGS: A 17 mm irregular mass in the upper central left breast persists on additional views. SONOGRAM FINDINGS: Directed ultrasound examination of the upper central left breast was performed. At 11:30 o'clock position, 7 cm from the nipple there is a 11 x 10 x 11 mm hypoechoic, irregular, shadowing mass with indistinct margins. Directed physical examination of the area of concern demonstrates no definite suspicious palpable abnormality at this time. Directed sonogram of the left axilla does not show any abnormal appearing lymph nodes. IMPRESSION: An 11 mm irregular mass at 11:30 o'clock position in the left breast is of high suspicion for malignancy and should be biopsied. The above findings and recommendations were discussed with the patient at the conclusion of the examination, and were subsequently telephoned to Crystal in the office of the referring physician, Dr. Bao Lyons, by Dr. Lechuga on 04/23/2016 at 2:30 p.m. The patient has been scheduled to return to the [facility] for an ultrasound-guided core needle biopsy of the left breast on 04/30/2016 at 7:15 a.m. OVERALL FINAL ASSESSMENT: BI-RADS Category 4C: Suspicious abnormality. High suspicion for malignancy. Requested By: Dictated By: TARA LECHUGA M.D. on Apr 23 2016 2:40P This document has been electronically signed by: DASHA HAYS M.D. on Apr 23 2016 3:10P us Historical Provider MD ANDRADE MAMMO PROCEDURES Adamaris l Result * Diagnostic Mammogram Left W Prem (04/23/2016 1:30 PM COMPUTER SECURITY SPECIALIST) Anatomical Region Laterality Modality Breast Left Mammography 04/23/2016 1:30 PM COMPUTER SECURITY SPECIALIST Narrative 04/23/2016 3:10 PM COMPUTER SECURITY SPECIALIST DASHA HAYS M.D. TARA LECHUGA M.D. FINAL REPORT The radiology attending physician has personally reviewed this study, and has reviewed and/or edited this written report and agrees with it. ACC# ??Date Time ??Exam [id number] Apr 23, 2016 13:30:00 [facility] [address] Diag Mamm, inc CAD, unilat L ?? Technologist(s): Brittany Alfaro; ; [id number] Apr 23, 2016 13:30:00 [facility] 42980 DigBreast Prem uni L ?? Technologist(s): Brittany Alfaro; ; [id number] Apr 23, 2016 13:59:00 [facility] 14577 Breast US unilateral, ltd L EXAMINATION: ?? LEFT FULL FIELD DIGITAL DIAGNOSTIC MAMMOGRAM WITH CAD AND LEFT DIGITAL BREAST TOMOSYNTHESIS, AND LEFT BREAST SONOGRAM HISTORY: Abnormal screening mammogram. Recent screening mammogram demonstrated a 17 mm irregular mass in the central left breast. ?? MAMMOGRAM TECHNIQUE: Additional views of the left breast were obtained utilizing full field digital mammography. Computer Aided Detection was performed. ??Digital breast tomosynthesis was performed and reviewed as a part of this examination. COMPARISON: 04/16/2016, 04/28/2014. BREAST PARENCHYMAL COMPOSITION: There are scattered areas of fibroglandular density. MAMMOGRAM FINDINGS: A 17 mm irregular mass in the upper central left breast persists on additional views. SONOGRAM FINDINGS: Directed ultrasound examination of the upper central left breast was performed. ??At 11:30 o'clock position, 7 cm from the nipple there is a 11 x 10 x 11 mm hypoechoic, irregular, shadowing mass with indistinct margins. Directed physical examination of the area of concern demonstrates no definite suspicious palpable abnormality at this time. Directed sonogram of the left axilla does not show any abnormal appearing lymph nodes. IMPRESSION: ?? An 11 mm irregular mass at 11:30 o'clock position in the left breast is of high suspicion for malignancy and should be biopsied. The above findings and recommendations were discussed with the patient at the conclusion of the examination, and were subsequently telephoned to Crystal in the office of the referring physician, Dr. Bao Lyons, by Dr. Lechuga on 04/23/2016 at 2:30 p.m. ??The patient has been scheduled to return to the [facility] for an ultrasound-guided core needle biopsy of the left breast on 04/30/2016 at 7:15 a.m. OVERALL FINAL ASSESSMENT: BI-RADS Category 4C: Suspicious abnormality. High suspicion for malignancy. Requested By: Dictated By: ?? TARA LECHUGA M.D. ??on Apr 23 2016 ??2:40P This document has been electronically signed by: DASHA HAYS M.D. on Apr 23 2016 ??3:10P [id number] Procedure Note Provider, MD Lorena - 07/30/2016 DASHA HAYS M.D. TARA LECHUGA M.D. FINAL REPORT The radiology attending physician has personally reviewed this study, and has reviewed and/or edited this written report and agrees with it. ACC# Date Time Exam [id number] Apr 23, 2016 13:30:00 [facility] [address] Diag Mamm, inc CAD, unilat L Technologist(s): Brittany Alfaro; ; [id number] Apr 23, 2016 13:30:00 [facility] 65350 DigBreast Prem uni L Technologist(s): Brittany Alfaro; ; [id number] Apr 23, 2016 13:59:00 [facility] 89073 Breast US unilateral, ltd L EXAMINATION: LEFT FULL FIELD DIGITAL DIAGNOSTIC MAMMOGRAM WITH CAD AND LEFT DIGITAL BREAST TOMOSYNTHESIS, AND LEFT BREAST SONOGRAM HISTORY: Abnormal screening mammogram. Recent screening mammogram demonstrated a 17 mm irregular mass in the central left breast. MAMMOGRAM TECHNIQUE: Additional views of the left breast were obtained utilizing full field digital mammography. Computer Aided Detection was performed. Digital breast tomosynthesis was performed and reviewed as a part of this examination. COMPARISON: 04/16/2016, 04/28/2014. BREAST PARENCHYMAL COMPOSITION: There are scattered areas of fibroglandular density. MAMMOGRAM FINDINGS: A 17 mm irregular mass in the upper central left breast persists on additional views. SONOGRAM FINDINGS: Directed ultrasound examination of the upper central left breast was performed. At 11:30 o'clock position, 7 cm from the nipple there is a 11 x 10 x 11 mm hypoechoic, irregular, shadowing mass with indistinct margins. Directed physical examination of the area of concern demonstrates no definite suspicious palpable abnormality at this time. Directed sonogram of the left axilla does not show any abnormal appearing lymph nodes. IMPRESSION: An 11 mm irregular mass at 11:30 o'clock position in the left breast is of high suspicion for malignancy and should be biopsied. The above findings and recommendations were discussed with the patient at the conclusion of the examination, and were subsequently telephoned to Katarina in the office of the referring physician, Dr. Bao Lyons, by Dr. Lechuga on 04/23/2016 at 2:30 p.m. The patient has been scheduled to return to the [facility] for an ultrasound-guided core needle biopsy of the left breast on 04/30/2016 at 7:15 a.m. OVERALL FINAL ASSESSMENT: BI-RADS Category 4C: Suspicious abnormality. High suspicion for malignancy. Requested By: Dictated By: TARA LECHUGA M.D. on Apr 23 2016 2:40P This document has been electronically signed by: DASHA HAYS M.D. on Apr 23 2016 3:10P [id number] us Historical Provider MD ANDRADE MAMMO PROCEDURES Adamaris l Result documented in this encounter Visit Diagnoses Diagnosis Inconclusive mammogram Breast lump Lump or mass in breast documented in this encounter Care Teams Hardwood Floor Sander Relationship Specialty Start Date End Date Bao Lyons DO PCP - General 01/27/15 05/08/16 documented as of this encounter
--- OUTSIDE RECORDS SUMMARY | 2024-03-23 01:53 | XMS_ITS | Encounter Summary ---
Author Organization [facility] Healthcare Address [address] [place] [address] Care Team Providers Care Cnc Applications Engineer Name Role Phone Bao Lyons DO Primary Care Provider +- [phone] Bao Lyons DO Unavailable [phone] Encounter Details Date Type Department Care Team (Latest Contact Info) Description 05/10/2016 9:14 AM ASPHALT RAKER - 05/10/2016 11:59 PM ASPHALT RAKER Hospital Encounter [facility] [phone] Steven Pickard MD [address] [place] [address] Discharge Disposition: Discharge to home or self care Social History Tobacco Use Types Packs/Day Years Used Date Smoking Tobacco: Never Comments Unknown Sex and Gender Information Value Date Recorded Sex Assigned at Not on file Legal Sex Female 5:35 PM ASPHALT RAKER Gender Identity Not on file Sexual Orientation Not on file documented as of this encounter Discharge Disposition Disposition Code Departure Means Destination Discharge to home or self care documented in this encounter Plan of Treatment Not on file documented as of this encounter Visit Diagnoses Not on filedocumented in this encounter Care Teams Cnc Applications Engineer Relationship Specialty Start Date End Date Bao Lyons DO PCP - General 05/09/16 10/03/21 Bao Lyons DO 05/09/16 10/03/21 documented as of this encounter
--- OUTSIDE RECORDS SUMMARY | 2024-03-23 01:53 | XMS_ITS | Encounter Summary ---
Author Organization [facility] Care Team Providers Care Roundhouse Supervisor Name Role Phone Bao Lyons DO Primary Care Provider [phone]- [phone] Encounter Details Date Type Department Care Team (Late st Contact Info) Description 04/16/2016 11:06 AM PARTICLE BOARD SUPERVISOR - 04/16/2016 11:59 PM PARTICLE BOARD SUPERVISOR Hospital Encounter [facility] Bao Lyons, DO [address] [facility] [address] [address] Encounter for screening mammogram for malignant neoplasm of breast; Breast lump Social History Tobacco Use Types Packs/Day Years Used Date Smoking Tobacco: Never Comments Unknown Sex and Gender Information Value Date Recorded Sex Assigned at Not on file Legal Sex Female 5:35 PM PARTICLE BOARD SUPERVISOR Gender Identity Not on file Sexual Orientation Not on file documented as of this encounter Plan of Treatment Not on file documented as of this encounter Procedures Procedure Name Priority Date/Time Associated Diagnosis Comments SCREENING MAMMOGRAM Routine 04/16/2016 1 1:31 AM PARTICLE BOARD SUPERVISOR documented in this encounter Results * Screening Mammogram (04/16/2016 11:31 AM PARTICLE BOARD SUPERVISOR) Anatomical Region Laterality Modality Breast N/A Mammography 04/16/2016 11:3 1 AM PARTICLE BOARD SUPERVISOR Narrative 04/19/2016 1:38 PM PARTICLE BOARD SUPERVISOR DASHA HAYS M.D. FINAL REPORT ACC# ??Date Time ??Exam [id number] Apr 16, 2016 11:31:00 [facility] [id number] [facility] Mamm lenore 2v w/LANE ?? Technologist(s): Brittany Alfaro; ; EXAMINATION: ??Mammogram Technique: Bilateral Digital Breast Tomosynthesis, Bilateral C-view 2D Screening mammogram. ??Views obtained: ??bilateral craniocaudal and bilateral mediolateral oblique. ??Computer Aided Detection was performed. Mammogram Findings: The present examination has been compared to a prior imaging study performed at [facility] on 04/28/2014. There are scattered areas of fibroglandular density. There is an irregular mass measuring 17 millimeters with circumscribed and obscured margins in the central area of the left breast. There is no suspicious abnormality in the right breast. IMPRESSION: ??Mass in the left breast requires additional evaluation. Additional views are recommended. OVERALL FINAL ASSESSMENT: BI-RADS CATEGORY 0: ??Incomplete: ??Need additional imaging evaluation. Requested By: Dictated By: ?? DASHA HAYS M.D. ??on Apr 19 2016 ??1:37P This document has been electronically signed by: DASHA HAYS M.D. on Apr 19 2016 ??1:37P [id number] Procedure Note Provider, MD Lorena - 07/30/2016 DASHA HAYS M.D. FINAL REPORT ACC# Date Time Exam [id number] Apr 16, 2016 11:31:00 [facility] [id number] [facility] Mamm lenore 2v w/LANE Technologist(s): Brittany Alfaro; ; EXAMINATION: Mammogram Technique: Bilateral Digital Breast Tomosynthesis, Bilateral C-view 2D Screening mammogram. Views obtained: bilateral craniocaudal and bilateral mediolateral oblique. Computer Aided Detection was performed. Mammogram Findings: The present examination has been compared to a prior imaging study performed at [facility] on 04/28/2014. There are scattered areas of fibroglandular density. There is an irregular mass measuring 17 millimeters with circumscribedand obscured margins in the central area of the left breast. There is no suspicious abnormality in the right breast. IMPRESSION: Mass in the left breast requires additional evaluation. Additional views are recommended. OVERALL FINAL ASSESSMENT: BI-RADS CATEGORY 0: Incomplete: Need additional imaging evaluation. Requested By: Dictated By: DASHA HAYS M.D. on Apr 19 2016 1:37P This document has been electronically signed by: DASHA HAYS M.D. on Apr 19 2016 1:37P [id number] us Historical Provider MD ANDRADE MAMMO PROCEDURES Daamaris l Result documented in this encounter Visit Diagnoses Diagnosis Encounter for screening mammogram for malignant neoplasm of breast Breast lump Lump or mass in breast documented in this encounter Care Teams Roundhouse Supervisor Relationship Specialty Start Date End Date Bao Lyons DO PCP - General 01/27/15 05/08/16 documented as of this encounter
--- OUTSIDE RECORDS SUMMARY | 2024-03-23 01:53 | XMS_ITS | Encounter Summary ---
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 Name Role Phone Unavailable Primary Care Provider Unavailabl e Encounter Details Date Type Department Care Team (Late st Contact Info) Description 07/02/2012 - 07/02/2012 11:59 PM CDT Hospital Encounter [facility] Essential hypertension; Hematuria; Proteinuria Social History Tobacco Use Types Packs/Day Years Used Date Smoking Tobacco: Never Assessed Comments Unknown Sex and Gender Information Value Date Recorded Sex Assigned at Not on file Legal Sex Female 5:35 PM [employer] Gender Identity Not on file Sexual Orientation Not on file documented as of this encounter Plan of Treatment Not on file documented as of this encounter Procedures Procedure Name Priority Date/Time Associated Diagnosis Comments US RETROPERITONEAL COMPLETE Routine 07/02/2012 2:32 PM CDT documented in this encounter Results * US Retroperitoneal Complete (07/02/2012 2:32 PM CDT) Anatomical Region Laterality Modality Abdomen N/A Ultrasound 07/02/2012 2:32 PM CDT Narrative 07/02/2012 3:57 PM CDT SHANELLE THEODORE M.D. JAMAL BUTTS M.D. FINAL REPORT The radiology attending physician has personally reviewed this study, and has reviewed and/or edited this written report and agrees with it. ACC# ??Date Time ??Exam [id number] Jul 02, 2012 14:32:00 [id number] US Retroper cmp EXAMINATION: ?COMPLETE RENAL SONOGRAM HISTORY: 57 year-old woman with proteinuria. FINDINGS: The echogenicity of both kidneys is normal. ??There is no hydronephrosis in either kidney. ??There are no renal calculi visualized. The right kidney measures 10.45 cm in length, and the left, 11.1 cm in length. ??The bladder is normal. ?? Incidentally noted is hepatic steatosis. Kirti Arriola PA-C, also participated in this examination. ?? IMPRESSION: ?? Normal kidneys. ??No hydronephrosis. ?? Requested By: DAISY GARCIA ??D.O. Dictated By: ?? JAMAL BUTTS M.D. ??on Jul 02 2012 ??3:53P This document has been electronically signed by: SHANELLE THEODORE M.D. on Jul 02 2012 ??3:57P Procedure Note Provider, MD [place] - 07/27/2016 Orquidea CROFT M.D. FINAL REPORT The radiology attending physician has personally reviewed this study, and has reviewed and/or edited this written report and agrees with it. ACC# Date Time Exam [id number] Jul 02, 2012 14:32:00 [id number] US Retroper cmp EXAMINATION: COMPLETE RENAL SONOGRAM HISTORY: 57 year-old woman with proteinuria. FINDINGS: The echogenicity of both kidneys is normal. There is no hydronephrosis in either kidney. There are no renal calculi visualized. The right kidney measures 10.45 cm in length, and the left, 11.1 cm in length. The bladder is normal. Incidentally noted is hepaticsteatosis. Kirti Arriola PA-C, also participated in this examination. IMPRESSION: Normal kidneys. No hydronephrosis. Requested By: DAISY GARCIA D.O. Dictated By: JAMAL BUTTS M.D. on Jul 02 2012 3:53P This document has been electronically signed by: SHANELLE THEODORE M.D. on Jul 02 2012 3:57P us Historical Provider IMOdilia US PROCEDURES Final R esult documented in this encounter Visit Diagnoses Diagnosis Essential hypertension Unspecified essential hypertension Hematuria Hematuria, unspecified Proteinuria documented in this encounter
--- OUTSIDE RECORDS SUMMARY | 2024-03-23 01:53 | XMS_ITS | Encounter Summary ---
Author Organization 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 Name Role Phone Bao Lyons DO Primary Care Provider [phone]- [phone] Encounter Details Date Type Department Care Team (Late st Contact Info) Description 04/26/2016 8:29 AM CANE BURNER - 04/26/2016 11:59 PM CANE BURNER Hospital Encounter [facility] Bao Lyons, DO [address] [facility] [address] [address] Benign neoplasm of left breast Social History Tobacco Use Types Packs/Day Years Used Date Smoking Tobacco: Never Comments Unknown Sex and Gender Information Value Date Recorded Sex Assigned at Not on file Legal Sex Female 5:35 PM CANE BURNER Gender Identity Not on file Sexual Orientation Not on file documented as of this encounter Plan of Treatment Not on file documented as of this encounter Procedures Procedure Name Priority Date/Time Associated Diagnosis Comments DIAGNOSTIC MAMMOGRAM LEFT W PREM Routine 04/26/2016 10:15 AM CANE BURNER US GUIDED LOCALIZATION BREAST Routine 04/26/2016 10:12 AM CANE BURNER DIAGNOSTIC MAMMOGRAM LEFT W PREM Routine 04/26/2016 10:12 AM CANE BURNER SURGICAL PATHOLOGY 04/26/2016 documented in this encounter Results * Diagnostic Mammogram Left W Prem (04/26/2016 10:15 AM CANE BURNER) Anatomical Region Laterality Modality Breast Left Mammography 04/26/2016 10:1 5 AM CANE BURNER Narrative 05/08/2016 10:55 AM CANE BURNER FRAN CONNOLLY M.D. FINAL REPORT The radiology attending physician has personally reviewed this study, and has reviewed and/or edited this written report and agrees with it. ACC# ??Date Time ??Exam [id number] Apr 26, 2016 10:12:00 [facility] [place] [address] Breast Bx Incl Loc Sono L [id number] Apr 26, 2016 10:12:00 [facility] [place] [address] DigBreast Prem uni L ?? Technologist(s): Mayelin Chance; ; [id number] Apr 26, 2016 10:15:00 [facility] [place] [id number] Procedure Mammo, unilat L ?? Technologist(s): Mayelin Chance; ; EXAMINATION: ?? ULTRASOUND-GUIDED CORE BIOPSY LEFT BREAST, TISSUE MARKER CLIP PLACEMENT AND LEFT UNILATERAL DIGITAL MAMMOGRAM with tomosynthesis HISTORY: 61-year-old woman with screen-detected 11 mm mass at 1130 o'clock position in the left breast, further confirmed with ultrasound. ?? Ultrasound-guided core needle biopsy is requested to evaluate for malignancy. PROCEDURE AND FINDINGS: The risks and potential benefits of the procedure were discussed with the patient and written informed consent was obtained. After sterile preparation of the skin, 1% lidocaine was utilized for local anesthesia. ??A small skin incision was made with a #11 scalpel blade. ??A 14-gauge spring-loaded biopsy device needle was then advanced through the skin incision to the edge of the lesion of interest from a lateral approach utilizing sonographic guidance. A total of 4 tissue cores were obtained through the lesion. An UltraClip ring-shaped tissue marker clip was then placed at the biopsy site. Hemostasis was achieved. A sterile bandage and an ice pack were applied. The patient tolerated the procedure well and there was no evidence of immediate complication. The patient was given verbal as well as written post procedural instructions prior to release from the department. ??The tissue cores were submitted to surgical pathology in formalin for histologic analysis. A two view left unilateral digital mammogram with digital breast tomosynthesis was obtained post procedure and this demonstrates that the tissue marker clip is in the expected position. The attending radiologist, Dr. Connolly, was present throughout the entire procedure. Dr. Velez (diagnostic radiology services manager) also participated in this examination. IMPRESSION: ?Successful ultrasound-guided core needle biopsy of the area of interest in the LEFT breast. ??Pathology pending. ADDENDUM #1 by Sandra Bustos, MSN [facility]- for Dr. 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 There was no evidence of atypia or malignancy. This is a high risk lesion and surgical excision is recommended. The patient was notified of the biopsy results and recommendations by DIPIKA Betancur RN of the [facility] on 05/01/16, and is scheduled to see Dr. Kanu Pickard for surgical consultation on 05/09/16. Requested By: Bao Lyons ??D.O. Dictated By: ?? TARA VELEZ M.D. ??on Apr ??2016 11:54A This document has been electronically signed by: FRAN CONNOLLY M.D. on Apr ??3 2017 ??1:01P Addendum Dictated by: CHONG BENDER on May 07 2016 ??2:08P This Addendum has been electronically signed by: FRAN CONNOLLY M.D. on May 08 2016 10:55A Procedure Note Provider, MD Lorena - 07/30/2016 FRAN CONNOLLY M.D. FINAL REPORT The radiology attending physician has personally reviewed this study, and has reviewed and/or edited this written report and agrees with it. ACC# Date Time Exam [id number] Apr 26, 2016 10:12:00 [facility] [place] [address] Breast Bx Incl Loc Sono L [id number] Apr 26, 2016 10:12:00 [facility] [place] [address] DigBreast Prem uni L Technologist(s): Mayelin Chance; ; [id number] Apr 26, 2016 10:15:00 [facility] [place] [id number] Procedure Mammo, unilat L Technologist(s): Mayelin Chance; ; EXAMINATION: ULTRASOUND-GUIDED CORE BIOPSY LEFT BREAST, TISSUE MARKER CLIP PLACEMENT AND LEFT UNILATERAL DIGITAL MAMMOGRAM with tomosynthesis HISTORY: 61-year-old woman with screen-detected 11 mm mass at 1130 o'clock position in the left breast, further confirmed with ultrasound. Ultrasound-guided core needle biopsy is requested to evaluate for malignancy. PROCEDURE AND FINDINGS: The risks and potential benefits of the procedure were discussed with the patient and written informed consent was obtained. After sterile preparation of the skin, 1% lidocaine was utilized for local anesthesia. A small skin incision was made with a #11 scalpel blade. A 14-gauge spring-loaded biopsy device needle was then advanced through the skin incision to the edge of the lesion of interest from a lateral approach utilizing sonographic guidance. A total of 4 tissue cores were obtained through the lesion. An UltraClip ring-shaped tissue marker clip was then placed at the biopsy site. Hemostasis was achieved. A sterile bandage and an ice pack were applied. The patient tolerated the procedure well and there was no evidence of immediate complication. The patient was given verbal as well as written post procedural instructions prior to release from the department. The tissue cores were submitted to surgical pathology in formalin for histologic analysis. A two view left unilateral digital mammogram with digital breast tomosynthesis was obtained post procedure and this demonstrates that the tissue marker clip is in the expected position. The attending radiologist, Dr. Connolly, was present throughout the entire procedure. Dr. Velez (diagnostic radiology services manager) also participated in this examination. IMPRESSION: Successful ultrasound-guided core needle biopsy of the area of interest in the LEFT breast. Pathology pending. ADDENDUM #1 by Sandra Bustos, MSN [facility] for Dr. 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 There was no evidence of atypia or malignancy. This is a high risk lesion and surgical excision is recommended. The patient was notified of the biopsy results and recommendations by DIPIKA Betancur RN of the Breast [facility] on 05/01/16, and is scheduled to see Dr. Kanu Pickard for surgical consultation on 05/09/16. Requested By: Bao Lyons D.O. Dictated By: TARA VELEZ M.D. on Apr 26 2016 11:54A This document has been electronically signed by: FRAN CONNOLLY M.D. on Apr 26 2016 1:01P Addendum Dictated by: CHONG BENDER on May 07 2016 2:08P This Addendum has been electronically signed by: FRAN CONNOLLY M.D. on May 08 2016 10:55A us Historical Provider MD ANDRADE MAMMO PROCEDURES Adamaris l Result * US Guided Localization Breast (04/26/2016 10:12 AM CANE BURNER) Anatomical Region Laterality Modality Breast N/A Ultrasound 04/26/2016 10:1 2 AM CANE BURNER Narrative 05/08/2016 10:55 AM CANE BURNER FRAN CONNOLLY M.D. FINAL REPORT The radiology attending physician has personally reviewed this study, and has reviewed and/or edited this written report and agrees with it. ACC# ??Date Time ??Exam [id number] Apr 26, 2016 10:12:00 [facility] [place] [address] Breast Bx Incl Loc Sono L [id number] Apr 26, 2016 10:12:00 [facility] [place] [address] DigBreast Prem uni L ?? Technologist(s): Mayelin Chance; ; [id number] Apr 26, 2016 10:15:00 [facility] [place] [id number] Procedure Mammo, unilat L ?? Technologist(s): Mayelin Chance; ; EXAMINATION: ?? ULTRASOUND-GUIDED CORE BIOPSY LEFT BREAST, TISSUE MARKER CLIP PLACEMENT AND LEFT UNILATERAL DIGITAL MAMMOGRAM with tomosynthesis HISTORY: 61-year-old woman with screen-detected 11 mm mass at 1130 o'clock position in the left breast, further confirmed with ultrasound. ?? Ultrasound-guided core needle biopsy is requested to evaluate for malignancy. PROCEDURE AND FINDINGS: The risks and potential benefits of the procedure were discussed with the patient and written informed consent was obtained. After sterile preparation of the skin, 1% lidocaine was utilized for local anesthesia. ??A small skin incision was made with a #11 scalpel blade. ??A 14-gauge spring-loaded biopsy device needle was then advanced through the skin incision to the edge of the lesion of interest from a lateral approach utilizing sonographic guidance. A total of 4 tissue cores were obtained through the lesion. An UltraClip ring-shaped tissue marker clip was then placed at the biopsy site. Hemostasis was achieved. A sterile bandage and an ice pack were applied. The patient tolerated the procedure well and there was no evidence of immediate complication. The patient was given verbal as well as written post procedural instructions prior to release from the department. ??The tissue cores were submitted to surgical pathology in formalin for histologic analysis. A two view left unilateral digital mammogram with digital breast tomosynthesis was obtained post procedure and this demonstrates that the tissue marker clip is in the expected position. The attending radiologist, Dr. Connolly, was present throughout the entire procedure. Dr. Velez (diagnostic radiology services manager) also participated in this examination. IMPRESSION: ?Successful ultrasound-guided core needle biopsy of the area of interest in the LEFT breast. ??Pathology pending. ADDENDUM #1 by Sandra Bustos, MSN [facility]- for Dr. 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 There was no evidence of atypia or malignancy. This is a high risk lesion and surgical excision is recommended. The patient was notified of the biopsy results and recommendations by DIPIKA Betancur RN of the Breast [facility] on 05/01/16, and is scheduled to see Dr. Kanu Pickard for surgical consultation on 05/09/16. Requested By: Bao Lyons ??D.O. ? Dictated By: ?? TARA VELEZ M.D. ??on Apr ??2016 11:54A This document has been electronically signed by: FRAN CONNOLLY M.D. on Apr?3 2017 ??1:01P Addendum Dictated by: CHONG BENDER on May 07 2016 ??2:08P This Addendum has been electronically signed by: FRAN CONNOLLY M.D. on May 08 2016 10:55A [id number] Procedure Note Provider, MD Lorena - 07/30/2016 FRAN CATHLEEN, M.D. FINAL REPORT The radiology attending physician has personally reviewed this study, and has reviewed and/or edited this written report and agrees with it. ACC# Date Time Exam [id number] Apr 26, 2016 10:12:00 [facility] [place] [address] Breast Bx Incl Loc Sono L [id number] Apr 26, 2016 10:12:00 [facility] [place] [address] DigBreast Prem uni L Technologist(s): Mayelin Chance; ; [id number] Apr 26, 2016 10:15:00 [facility] [place] [id number] Procedure Mammo, unilat L Technologist(s): Mayelin Chance; ; EXAMINATION: ULTRASOUND-GUIDED CORE BIOPSY LEFT BREAST, TISSUE MARKER CLIP PLACEMENT AND LEFT UNILATERAL DIGITAL MAMMOGRAM with tomosynthesis HISTORY: 61-year-old woman with screen-detected 11 mm mass at 1130 o'clock position in the left breast, further confirmed with ultrasound. Ultrasound-guided core needle biopsy is requested to evaluate for malignancy. PROCEDURE AND FINDINGS: The risks and potential benefits of the procedure were discussed with the patient and written informed consent was obtained. After sterile preparation of the skin, 1% lidocaine was utilized for local anesthesia. A small skin incision was made with a #11 scalpel blade. A 14-gauge spring-loaded biopsy device needle was then advanced through the skin incision to the edge of the lesion of interest from a lateral approach utilizing sonographic guidance. A total of 4 tissue cores were obtained through the lesion. An UltraClip ring-shaped tissue marker clip was then placed at the biopsy site. Hemostasis was achieved. A sterile bandage and an ice pack were applied. The patient tolerated the procedure well and there was no evidence of immediate complication. The patient was given verbal as well as written post procedural instructions prior to release from the department. The tissue cores were submitted to surgical pathology in formalin for histologic analysis. A two view left unilateral digital mammogram with digital breast tomosynthesis was obtained post procedure and this demonstrates that the tissue marker clip is in the expected position. The attending radiologist, Dr. Connolly, was present throughout the entire procedure. Dr. Velez (diagnostic radiology services manager) also participated in this examination. IMPRESSION: Successful ultrasound-guided core needle biopsy of the area of interest in the LEFT breast. Pathology pending. ADDENDUM #1 by Sandra Bustos, MSN [facility] for Dr. 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 There was no evidence of atypia or malignancy. This is a high risk lesion and surgical excision is recommended. The patient was notified of the biopsy results and recommendations by DIPIKA Betancur RN of the Breast [facility] on 05/01/16, and is scheduled to see Dr. Kanu Pickard for surgical consultation on 05/09/16. Requested By: aBo Lyons D.O. Dictated By: TARA VELEZ M.D. on Apr 26 2016 11:54A This document has been electronically signed by: FRAN CONNOLLY M.D. on Apr 26 2016 1:01P Addendum Dictated by: CHONG BENDER on May 07 2016 2:08P This Addendum has been electronically signed by: FRAN CONNOLLY M.D. on May 08 2016 10:55A [id number] us Historical Provider MD ANDRADE US PROCEDURES Final R esult * Diagnostic Mammogram Left W Prem (04/26/2016 10:12 AM CANE BURNER) Anatomical Region Laterality Modality Breast Left Mammography 04/26/2016 10:1 2 AM CANE BURNER Narrative 05/08/2016 10:55 AM CANE BURNER FRAN CONNOLLY M.D. FINAL REPORT The radiology attending physician has personally reviewed this study, and has reviewed and/or edited this written report and agrees with it. ACC# ??Date Time ??Exam [id number] Apr 26, 2016 10:12:00 [facility] [place] [address] Breast Bx Incl Loc Sono L [id number] Apr 26, 2016 10:12:00 [facility] [place] [address] DigBreast Prem uni L ?? Technologist(s): Mayelin Chance; ; [id number] Apr 26, 2016 10:15:00 [facility] [place] [id number] Procedure Mammo, unilat L ?? Technologist(s): Mayelin Chance; ; EXAMINATION: ?? ULTRASOUND-GUIDED CORE BIOPSY LEFT BREAST, TISSUE MARKER CLIP PLACEMENT AND LEFT UNILATERAL DIGITAL MAMMOGRAM with tomosynthesis HISTORY: 61-year-old woman with screen-detected 11 mm mass at 1130 o'clock position in the left breast, further confirmed with ultrasound. ?? Ultrasound-guided core needle biopsy is requested to evaluate for malignancy. PROCEDURE AND FINDINGS: The risks and potential benefits of the procedure were discussed with the patient and written informed consent was obtained. After sterile preparation of the skin, 1% lidocaine was utilized for local anesthesia. ??A small skin incision was made with a #11 scalpel blade. ??A 14-gauge spring-loaded biopsy device needle was then advanced through the skin incision to the edge of the lesion of interest from a lateral approach utilizing sonographic guidance. A total of 4 tissue cores were obtained through the lesion. An UltraClip ring-shaped tissue marker clip was then placed at the biopsy site. Hemostasis was achieved. A sterile bandage and an ice pack were applied. The patient tolerated the procedure well and there was no evidence of immediate complication. The patient was given verbal as well as written post procedural instructions prior to release from the department. ??The tissue cores were submitted to surgical pathology in formalin for histologic analysis. A two view left unilateral digital mammogram with digital breast tomosynthesis was obtained post procedure and this demonstrates that the tissue marker clip is in the expected position. The attending radiologist, Dr. Connolly, was present throughout the entire procedure. Dr. Velez (diagnostic radiology services manager) also participated in this examination. IMPRESSION: ?Successful ultrasound-guided core needle biopsy of the area of interest in the LEFT breast. ??Pathology pending. ADDENDUM #1 by Sandra Bustos, MSN [facility]- for Dr. 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 There was no evidence of atypia or malignancy. This is a high risk lesion and surgical excision is recommended. The patient was notified of the biopsy results and recommendations by DIPIKA Betancur RN of the Breast [facility] on 05/01/16, and is scheduled to see Dr. Kanu Pickard for surgical consultation on 05/09/16. Requested By: Bao Lyons ??D.O. ? Dictated By: ?? TARA VELEZ M.D. ??on Apr ??2016 11:54A This document has been electronically signed by: FRAN CONNOLLY M.D. on Apr ??3 2017 ??1:01P Addendum Dictated by: CHONG BENDER on May 07 2016 ??2:08P This Addendum has been electronically signed by: FRAN CONNOLLY M.D. on May 08 2016 10:55A [id number] Procedure Note Provider, MD Lorena - 07/30/2016 FRAN CONNOLLY M.D. FINAL REPORT The radiology attending physician has personally reviewed this study, and has reviewed and/or edited this written report and agrees with it. ACC# Date Time Exam [id number] Apr 26, 2016 10:12:00 [facility] [place] [address] Breast Bx Incl Loc Sono L [id number] Apr 26, 2016 10:12:00 [facility] [place] [address] DigBreast Prem uni L Technologist(s): Mayelin Chance; ; [id number] Apr 26, 2016 10:15:00 [facility] [place] [id number] Procedure Mammo, unilat L Technologist(s): Mayelin Chance; ; EXAMINATION: ULTRASOUND-GUIDED CORE BIOPSY LEFT BREAST, TISSUE MARKER CLIP PLACEMENT AND LEFT UNILATERAL DIGITAL MAMMOGRAM with tomosynthesis HISTORY: 61-year-old woman with screen-detected 11 mm mass at 1130 o'clock position in the left breast, further confirmed with ultrasound. Ultrasound-guided core needle biopsy is requested to evaluate for malignancy. PROCEDURE AND FINDINGS: The risks and potential benefits of the procedure were discussed with the patient and written informed consent was obtained. After sterile preparation of the skin, 1% lidocaine was utilized for local anesthesia. A small skin incision was made with a #11 scalpel blade. A 14-gauge spring-loaded biopsy device needle was then advanced through the skin incision to the edge of the lesion of interest from a lateral approach utilizing sonographic guidance. A total of 4 tissue cores were obtained through the lesion. An UltraClip ring-shaped tissue marker clip was then placed at the biopsy site. Hemostasis was achieved. A sterile bandage and an ice pack were applied. The patient tolerated the procedure well and there was no evidence of immediate complication. The patient was given verbal as well as written post procedural instructions prior to release from the department. The tissue cores were submitted to surgical pathology in formalin for histologic analysis. A two view left unilateral digital mammogram with digital breast tomosynthesis was obtained post procedure and this demonstrates that the tissue marker clip is in the expected position. The attending radiologist, Dr. Connolly, was present throughout the entire procedure. Dr. Velez (diagnostic radiology services manager) also participated in this examination. IMPRESSION: Successful ultrasound-guided core needle biopsy of the area of interest in the LEFT breast. Pathology pending. ADDENDUM #1 by Sandra Bustos, MSN [facility]- for Dr. 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 There was no evidence of atypia or malignancy. This is a high risk lesion and surgical excision is recommended. The patient was notified of the biopsy results and recommendations by DIPIKA Betancur RN of the Breast [facility] on 05/01/16, and is scheduled to see Dr. Kanu Pickard for surgical consultation on 05/09/16. Requested By: Bao Lyons D.O. Dictated By: TARA VELEZ M.D. on Apr 26 2016 11:54A This document has been electronically signed by: FRAN CONNOLLY M.D. on Apr 26 2016 1:01P Addendum Dictated by: CHONG BENDER on May 07 2016 2:08P This Addendum has been electronically signed by: FRAN CONNOLLY M.D. on May 08 2016 10:55A [id number] us Historical Provider IMG MAMMO PROCEDURES Adamaris l Result * Surgical pathology (04/26/2016) Narrative 04/26/2016 Ordered by an unspecified provider. 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
--- OUTSIDE RECORDS SUMMARY | 2024-03-23 01:53 | XMS_ITS | Encounter Summary ---
Author Organization [facility] Facility Care Team Providers Care Leadite Worker Name Role Phone Unavailable Primary Care Provider Unavailabl e Encounter Details Date Type Department Care Team (Late st Contact Info) Description 06/18/2012 - 06/18/2012 11:59 PM CDT Hospital Encounter [facility] Naimi, Rommel, DO Essential hypertension; Proteinuria; Hematuria Social History Tobacco Use Types Packs/Day Years Used Date Smoking Tobacco: Never Assessed Comments Unknown Sex and Gender Information Value Date Recorded Sex Assigned at Not on file 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 Gender Identity Not on file Sexual Orientation Not on file documented as of this encounter Plan of Treatment Not on file documented as of this encounter Procedures Procedure Name Priority Date/Time Associated Diagnosis Comments DISCHARGE LABORATORY CUMULATIVE REPORT Routine 06/19/2012 5:15 PM CDT SERUM HEPATITIS C AB Routine 06/18/2012 10:52 AM CDT SERUM HEPATITIS B SURFACE AG Routine 06/18/2012 10:52 AM CDT SERUM HEPATITIS B SURFACE AB Routine 06/18/2012 10:52 AM CDT PLASMA RENAL PANEL Routine 06/18/2012 10 :52 AM CDT BLOOD CELL COUNT Routine 06/18/2012 10:5 2 AM CDT URINE PROTEIN Routine 06/18/2012 10:51 AM CDT URINE CREATININE Routine 06/18/2012 10:5 1 AM CDT documented in this encounter Results * Discharge Laboratory Cumulative Report (06/19/2012 5:15 PM CDT) 06/19/2012 5:15 PM CDT Narrative HISTORICAL RESULTS - 06/19/2012 5:15 PM CDT ? [facility] ? Department of Laboratories ?[facility] [address] ?[facility] ?[facility] 5th Fl Tera C Patient Name: ? LINDSAY ALEXANDER Med Rec Number: ?? [id number] Date of : ?1955 Gender/Age: ? Female 57 years Doctor: ? Rommel Vaughan D.O. Report Date/Time: 06/19/2012 17:15 ?* Abnormal ??C Critical ??f Footnote ??^ Corrected ??L Low ??H High ?i Interp Data ??@ Reference Lab ?Chart Type: Cumulative ? CHEMISTRY ? Standard Blood Chemistry ? 06/18/2012 ? 15:52:00 Test ? Units ?? Reference Sodium ? 142 ? mmol/L ??135-145 Plasma Potassium ?? 4.1 ? mmol/L ??3.3-4.9 Chloride ? 102 ? mmol/L ??97-110 Total CO2 ?32 ?mmol/L ??22-32 Anion Gap ?8 ? mmol/L ??0-16 BUN ?9 ? mg/dL ?? 8-25 Creatinine ? 0.90 ?mg/dL ?? 0.60-1.10 Glucose ?95 ?mg/dL ?? 65-199 Total Calcium ?9.7 ? mg/dL ?? 8.6-10.3 Plasma Phosphorus ??4.1 ? mg/dL ?? 2.3-4.3 Albumin ?4.3 ? g/dL ?3.6-5.0 06/18/2012 15:52:00 ??Renal Pnl Plas: LAB Frequency Standing Order? No Expiration Date: ? Quantitative Urine Chemistry ? 06/18/2012 ? 15:51:00 Test ? Units ??Reference Random Urine Creatinine ??361.48 ??f ?? mg/dL Random Urine Protein i ?? 202.4 ??f ?mg/dL 06/18/2012 15:51:00 Random Urine Protein: Interpretive Data Urine protein values from patients receiving aminoglycosides may be falsely elevated. Current interpretive data was last revised on 05. 06/18/2012 15:51:00 ??Creat Ur Rnd: LAB Frequency Standing Order? No Expiration Date: ? CHEMISTRY ? Quantitative Urine Chemistry 06/18/2012 15:51:00 ??Random Urine Creatinine: Repeated on dilution. 06/18/2012 15:51:00 ??Prot Ur Rnd: LAB Frequency Standing Order? No Expiration Date: 06/18/2012 15:51:00 ??Random Urine Protein: Repeated on dilution. ?HEMATOLOGY ?Standard Hematology ? 06/18/2012 ? 15:52:00 Test ? Units ?? Reference WBC ?13.5 ??H ? K/cumm ??3.8-9.8 RBC ?4.56 ?M/cumm ??3.90-5.00 Hgb ?12.6 ?g/dL ?12.1-15.1 Hct ?38.9 ?% ? 36.1-44.[address] ??299 ? K/cumm ??140-440 MCV ?85.5 ?fL ?80.0-97.6 MCH ?27.6 ?pg ?26.7-33.7 MCHC ? 32.3 ??L ? g/dL ?32.7-35.5 RDW ?16.3 ??H ? % ? 11.8-14.6 MPV ?8.8 ? fL ?6.8-10.4 06/18/2012 15:52:00 ??CBC Express: LAB Frequency Standing Order? No Expiration Date: ? SEROLOGY ?06/18/2012 ?15:52:00 Test ?Units ??Reference Hepatitis B Surface Antigen ? NEG ?NEG Hepatitis B Surface Antibody i ??POS ??* ? NEG Hepatitis C Antibody i ?NEG ?NEG 06/18/2012 15:52:00 Hepatitis B Surface Antibody: Interpretive Data A Negative Result indicates anti-HBs of less than 10mIUnits/mL; a Positive Result indicates anti-HBs of greater than or equal to 10mIUnits/mL. ??If a quantitative result is still required, a new sample should be drawn for Hepatitis B Surface Antibody Quantitation and sent to [facility] for testing. Assay performance characteristics have not been established as an aid in determining susceptibility to HBV infection prior to or following vaccination in infants, or children. Current interpretive data was last revised on 2011. ? SEROLOGY 06/18/2012 15:52:00 Hepatitis C Antibody: Interpretive Data If confirmation is required, call Laboratory Customer Service to request sample to be sent to [facility] for Hepatitis C Virus (HCV) RNA Detection and Quantitation by Real-Time Reverse Consultant Rn-PCR (RT-PCR). Current interpretive data was last revised on 2011 06/18/2012 15:52:00 ??HepB Surf Ag: LAB Frequency Standing Order? No Expiration Date: 06/18/2012 15:52:00 ??HepB Surf Ab: LAB Frequency Standing Order? No Expiration Date: 06/18/2012 15:52:00 ??HepC Ab: LAB Frequency Standing Order? No Expiration Date: us Historical Provider LAB BLOOD ORDERABLES Adamaris hoffman Result HISTORICAL RESULTS * Serum Hepatitis B surface ag (06/18/2012 10:52 AM CDT) HBV surface ag Negative NEG HISTO RICAL RESULTS Serum 06/18/2012 10:5 2 AM CDT Narrative HISTORICAL RESULTS - 06/19/2012 4:32 AM CDT LAB Frequency Standing Order? No [facility] BLOOD ORDERABLES Final Resul t Performing Organization Address City/[facility] de Phone Number HISTORICAL RESULTS * Serum Hepatitis C ab (06/18/2012 10:52 AM CDT) HCV ab Negative NEG HISTORICAL RESULTS Serum 06/18/2012 10:5 2 AM CDT Narrative HISTORICAL RESULTS - 06/19/2012 4:50 AM CDT LAB Frequency Standing Order? No Expiration Date: Interpretive Data If confirmation is required, call Laboratory Customer Service to request sample to be sent to [facility] for Hepatitis C Virus (HCV) RNA Detection and Quantitation by Real-Time Reverse Consultant Rn-PCR (RT-PCR). Current interpretive data was last revised on 2011 [facility] [employer] LAB BLOOD ORDERABLES Final Resul t Performing Organization Address [facility] de Phone Number HISTORICAL RESULTS * (ABNORMAL) Serum Hepatitis B surface ab (06/18/2012 10:52 AM CDT) HBV surface ab Positive(A ) NEG HISTORICAL RESULTS Serum 06/18/2012 10:5 2 AM CDT Narrative HISTORICAL RESULTS - 06/19/2012 5:01 AM CDT LAB Frequency Standing Order? No Expiration Date: Interpretive Data A Negative Result indicates anti-HBs of less than 10mIUnits/mL; a Positive Result indicates anti-HBs of greater than or equal to 10mIUnits/mL. ??If a quantitative result is still required, a new sample should be drawn for Hepatitis B Surface Antibody Quantitation and sent to [facility] for testing. Assay performance characteristics have not been established as an aid in determining susceptibility to HBV infection prior to or following vaccination in infants, or children. Current interpretive data was last revised on 2011. [facility] [employer] DO LAB BLOOD ORDERABLES Final Resul t HISTORICAL RESULTS * (ABNORMAL) Blood cell count [CBC] express (06/18/2012 10:52 AM CDT) WBC 13.5(H) 3.8 - 9.8 K/cumm HISTORICAL RESULTS RBC 4.56 3.90 - 5.00 M/cumm HISTORICAL RESULTS Hgb 12.6 12.1 - 15.1 g/dl HISTORICAL RESULTS Hct 38.9 36.1 - 44.3 % HISTORICAL RESULTS MCV 85.5 80.0 - 97.6 fl HISTORICAL RESULTS MCH 27.6 26.7 - 33.7 pg HISTORICAL RESULTS MCHC 32.3(L) 32.7 - 35.5 g/dl HISTORICAL RESULTS Rdw 16.3(H) 11.8 - 14.6 % HISTORICAL RESULTS Platelets 299 140 - 440 K/cumm HISTORICAL RESULTS MPV 8.8 6.8 - 10.4 fl HISTORICAL RESULTS Blood specimen (specimen) 06/18/2012 10:52 AM CDT Narrative HISTORICAL RESULTS - 06/18/2012 11:08 AM CDT LAB Frequency Standing Order? No Expiration Date: [facility] [employer] DO LAB BLOOD ORDERABLES Final Resul t Performing Organization Address [facility] de Phone Number HISTORICAL RESULTS * Plasma renal panel (06/18/2012 10:52 AM CDT) Sodium 142 135 - 145 mmol/L HISTORICAL RESULTS Creatinine 0.90 0.60 - 1.10 mg/dl HISTORICAL RESULTS K, pl 4.1 3.3 - 4.9 mmol/L HISTORICAL RESULTS Calcium 9.7 8.6 - 10.3 mg/dl HISTORICAL RESULTS Chloride 102 97 - 110 mmol/L HISTORICAL RESULTS Phosphorus, pl 4.1 2.3 - 4.3 mg/dl HISTORICAL RESULTS CO2 32 22 - 32 mmol/L HISTORICAL RESULTS Alb 4.3 3.6 - 5.0 g/dl HISTORICAL RESULTS A. gap 8 0 - 16 mmol/L HISTORICAL RESULTS Glucose 95 65 - 199 mg/dl HISTORICAL RESULTS BUN 9 8 - 25 mg/dl HISTORICAL RESULTS Plasma 06/18/2012 10:5 2 AM CDT Narrative HISTORICAL RESULTS - 06/18/2012 11:24 AM CDT LAB Frequency Standing Order? No Expiration Date: Rommel Naimi DO LAB BLOOD ORDERABLES Final Resul t Performing Organization Address [facility] de Phone Number HISTORICAL RESULTS * Urine protein (06/18/2012 10:51 AM CDT) Protein, ur, quant 202.4 mg/dl H ISTORICAL RESULTS Comment: {Repeated on dilution.} Interpretive Data Urine protein values from patients receiving aminoglycosides may be falsely elevated. Current interpretive data was last revised on 05. Urine 06/18/2012 10:5 1 AM CDT Narrative HISTORICAL RESULTS - 06/18/2012 1:20 PM CDT LAB Frequency Standing Order? No Expiration Date: Rommel Naimi DO LAB BLOOD ORDERABLES Final Resul t Performing Organization Address [facility] de Phone Number HISTORICAL RESULTS * Urine creatinine (06/18/2012 10:51 AM CDT) Creatinine, ur 361.48 mg/dl HISTO RICAL RESULTS Comment:{Repeated on dilutio n.} Urine 06/18/2012 10:5 1 AM CDT Narrative HISTORICAL RESULTS - 06/18/2012 1:20 PM CDT LAB Frequency Standing Order? No Expiration Date: Rommel Naimi DO LAB BLOOD ORDERABLES Final Resul t Performing Organization Address [facility] de Phone Number HISTORICAL RESULTS documented in this encounter Visit Diagnoses Diagnosis Essential hypertension Unspecified essential hypertension Proteinuria Hematuria Hematuria, unspecified documented in this encounter
--- OUTSIDE RECORDS SUMMARY | 2024-03-23 01:53 | XMS_ITS | Encounter Summary ---
Author Organization [facility] Address [address] [place] [address] Phone Care Team Providers Care Haunted History Tour Guide Name Role Phone Bao Lyons DO Primary Care Provider [phone] Bao Lyons DO Unavailable [phone] Reason for Visit * Reason Comments Follow-up yearly mammogram Encounter Details Date Type Department Care Team (Late st Contact Info) Description 04/23/2018 11:40 AM CLINICAL NURSING PROFESSOR Office Visit [facility] [address] [place] [address] [address] [place] [id number] Steven Pickard MD [address] [place] [address] Abnormal mammogram (Primary Dx) Social History Tobacco Use Types Packs/Day Years Used Date Smoking Tobacco: Never Smokeless Tobacco: Never Alcohol Use Standard Drinks/Week Comments No 0 (1 standard drink = 0.6 oz pur e alcohol) Comments Unknown Sex and Gender Information Value Date Recorded Sex Assigned at Not on file 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 She is now status post left breast needle localization biopsy on 05/14/16. 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 Since her last visit, almost 2 years ago, the patient reports that she has done well. She denies any symptoms related to her breast. She denies breast tenderness, nipple discharge or palpable breast mass. The there is a positive family history for breast cancer. The patient reports that her sister was diagnosed with breast cancer before the age of 50. PAST MEDICAL HISTORY: Past Medical History: Diagnosis Date ??? Benign neoplasm of breast ??? Blood in urine ??? Hypertension ??? Proteinuria PAST SURGICAL HISTORY: History reviewed. No pertinent surgical history. MEDICATIONS: HOME MEDICATIONS : amLODIPine (NORVASC) 10 mg tablet atorvastatin (LIPITOR) 10 mg tablet ergocalciferol (VITAMIN D) 50,000 unit capsule hydroCHLOROthiazide (MICROZIDE) 12.5 mg capsule losartan (COZAAR) 100 mg tablet metFORMIN (GLUCOPHAGE) 500 mg tablet ALLERGIES: She is allergic to no known allergies. FAMILY HISTORY: Family History Problem Relation Age of Onset ??? Breast cancer Sister Adenocarcinoma of breast - (Added by TW Drake) SOCIAL HISTORY: Social History Social History ??? Marital status: Spouse name: N/A ??? Number of children: N/A ??? Years of education: N/A Social History Main Topics ??? Smoking status: Never Smoker ??? Smokeless tobacco: Never Used ??? Alcohol use No ??? Drug use: No ??? Sexual activity: Not Asked Other Topics Concern ??? None Social History Narrative ??? None REVIEW OF SYSTEMS: GENERAL: Denies fevers, chills [...] PSYCH: Denies depression, denies anxiety PHYSICAL EXAMINATION: Physical Exam Constitutional: She is oriented to person, place, and time and well-developed, well-nourished, and in no distress. No distress. HENT: Head: Normocephalic and atraumatic. Neck: Normal range of motion. Cardiovascular: Normal rate, regular rhythm and normal heart sounds. Pulmonary/Chest: Effort normal and breath sounds normal. No respiratory distress. Abdominal: Soft. Bowel sounds are normal. Musculoskeletal: Normal range of motion. Neurological: She is alert and oriented to person, place, and time. Breast: Examination of the breasts in the upright and supine positions reveal no obvious masses, orskin changes. LABORATORY: N/A RADIOLOGY: The patient is scheduled to undergo a screening mammogram today. PATHOLOGY: N/A IMPRESSION: The patient is a 63 y.o. female with history of intraductal papilloma. Her clinical breast examination is unremarkable. She has undergone a screening mammogram today and the results are pending. PLAN: I had a long discussion with the patient regarding her progress to date. Her clinical breast examination is unremarkable. Her screening mammogram is pending. I will contact the patient with the results of her screening mammogram. She does have a strong family history of breast cancer but I do not think increased surveillance is indicated at this time. I have seen and examined Lindsay Pedersen with the resident physician. We worked together to completethe office note, and I personally reviewed and edited the note. I agree with the evaluation and management plan outlined above. Kanu Pickard MD ICAL NURSING PROFESSOR documented in this encounter Plan of Treatment Not on file documented as of this encounter Visit Diagnoses Diagnosis Abnormal mammogram- Primary Abnormal mammogram, unspecified documented in this encounter Historical Medications * This list may reflect changes made after this encounter. losartan (COZAAR) 100 mg tablet Take 1 tablet (100 mg total) by mouth daily 3 02/23/2018 amLODIPine (NORVASC) 10 mg tablet Take 1 tablet (10 mg total) by mouth daily metFORMIN (GLUCOPHAGE) 500 mg tablet TK 1 T PO QHS 2 03/02/2018 06/19/2022 hydroCHLOROthiazi de (MICROZIDE) 12.5 mg capsule TK 1 C PO D 2 03/12/2018 12/30/19 ergocalciferol (VITAMIN D) 50,000 unit capsule TK 1 C PO ONCE WEEKLY WITH A LARGE MEAL 1 02/25/2018 06/19/2022 atorvastatin (LIPITOR) 10 mg tablet TK 1 T PO D 0 03/12/2018 01/09/2022 added in this encounter Care Teams Haunted History Tour Guide Relationship Specialty Start Date End Date Bao Lyons DO PCP - General 05/09/16 10/03/21 Bao Lyons DO 05/09/16 10/03/21 documented as of this encounter
--- OUTSIDE RECORDS SUMMARY | 2024-03-23 01:53 | XMS_ITS | Encounter Summary ---
Author Organization [facility] Healthcare Address [address] [place] [address] Care Team Providers Care Corpsman Name Role Phone Bao Lyons DO Primary Care Provider [phone]- [phone] Bao Lyons DO Unavailable [phone] Encounter Details Date Type Department Care Team (Latest Contact Info) Description 05/14/2016 5:32 AM CHIP PERSON - 05/14/2016 1:04 PM CHIP PERSON Hospital Encounter [facility] OP INTERIM [phone] Steven Pickard MD [address] [place], [place] [id number] Discharge Disposition: Discharge to home or self care Social History Tobacco Use Types Packs/Day Years Used Date Smoking Tobacco: Never Comments Unknown Sex and Gender Information Value Date Recorded Sex Assigned at Not on file Legal Sex Female 5:35 PM CHIP PERSON Gender Identity Not on file Sexual Orientation Not on file documented as of this encounter Discharge Disposition Disposition Code Departure Means Destination Discharge to home or self care documented in this encounter Plan of Treatment Not on file documented as of this encounter Visit Diagnoses Not on filedocumented in this encounter Care Teams Corpsman Relationship Specialty Start Date End Date Bao Lyons DO PCP - General 05/09/16 10/03/21 Bao Lyons DO 05/09/16 10/03/21 documented as of this encounter
--- OUTSIDE RECORDS SUMMARY | 2024-03-23 01:53 | XMS_ITS | Encounter Summary ---
Author Organization [facility] Address [address] [place] [address] Care Team Providers Care Principle Industrial Hygienist Name Role Phone Bao Lyons DO Primary Care Provider [phone] Bao Lyons DO Unavailable [phone] Reason for Referral * Diagnostic Imaging (Routine) - Closed Specialty Diagnoses / Procedures Referred By Contac t Referred To Contact Diagnoses Encounter for screening for malignant neoplasm of breast Procedures Screening Mammogram Bilateral W Bao Ham DO Phone: tel: fax: [facility] Referral ID Status Reason Start Date Expiration Date Visits Re quested Visits Authorized [id number] Closed 04/23/2018 11/02/2019 1 1 FORCE DEVELOPMENT ASSISTANT Reason for Visit * Diagnostic Imaging (Routine) - Closed Specialty Diagnoses / Procedures Referred By Kirt carvalho Referred To Contact Diagnoses Encounter for screening for malignant neoplasm of breast Procedures Screening Mammogram Bilateral W Bao Ham DO Phone: tel: fax: [facility] Referral ID Status Reason Start Date Expiration Date Visits Re quested Visits Authorized [id number] Closed 04/23/2018 11/02/2019 1 1 Encounter Details Date Type Department Care Team ([facility] st Contact Info) Description 04/23/2018 12:09 PM WORKFORCE DEVELOPMENT ASSISTANT - 04/23/2018 11:59 PM WORKFORCE DEVELOPMENT ASSISTANT Hospital Encounter [facility] [address] [place] [address] Bao Lyons, DO [facility] [facility] [place] [address] Encounter for screening for malignant neoplasm of breast Discharge Disposition: [...] on file Legal Sex Female 5:35 PM WORKFORCE DEVELOPMENT ASSISTANT Gender Identity Not on file Sexual [...] LARGE MEAL 1 02/25/2018 06/19/2022 hydroCHLOROthiazi de (MICROZIDE) 12.5 mg capsule TK 1 C PO D 2 03/12/2018 12/30/19 metFORMIN (GLUCOPHAGE) 500 mg tablet TK 1 T PO QHS 2 03/02/2018 06/19/2022 documented as of this encounter Discharge Disposition Disposition Code Departure Means Destination Discharge to home or self care documented in this encounter Plan of Treatment Not on file documented as of this encounter Procedures Procedure Name Priority Date/Time Associated Diagnosis Comments SCREENING MAMMOGRAM BILATERAL W PREM Schedule Routine, Read Routine (OP Routine) 04/23/2018 12:33 PM WORKFORCE DEVELOPMENT ASSISTANT Encounter for screening for malignant neoplasm of breast documented in this encounter Results * Screening Mammogram Bilateral W Prem (04/23/2018 12:33 PM WORKFORCE DEVELOPMENT ASSISTANT) Anatomical Region Laterality Modality Breast Bilateral Mammography Narrative 04/24/2018 8:29 AM WORKFORCE DEVELOPMENT ASSISTANT Mammogram Technique: Bilateral Digital Breast Tomosynthesis, Bilateral C-view 2D Screening mammogram. ??Views obtained: ??bilateral craniocaudal and bilateral mediolateral oblique. ??Computer Aided Detection was performed. Mammogram Findings: The present examination has been compared to prior imaging studies performed at [facility] on 04/16/2016 and 04/23/2016. The breasts are heterogeneously dense, which may obscure small masses. There is a post-surgical scar in the left breast. There is no suspicious abnormality in the right breast. Impression: Post-surgical scar in the left breast is benign. Annual screening mammography is recommended. OVERALL FINAL ASSESSMENT: BI-RADS CATEGORY 2: ??Benign. Procedure Note Jude Schrader MD - 04/24/2018 Mammogram Technique: Bilateral Digital Breast Tomosynthesis, Bilateral C-view 2D Screening mammogram. Views obtained: bilateral craniocaudal and bilateral mediolateral oblique. Computer Aided Detection was performed. Mammogram Findings: The present examination has been compared to prior imaging studies performed at [facility] on 04/16/2016 and 04/23/2016. The breasts are heterogeneously dense, which may obscure small masses. There is a post-surgical scar in the left breast. There is no suspicious abnormality in the right breast. Impression: Post-surgical scar in the left breast is benign. Annual screening mammography is recommended. OVERALL FINAL ASSESSMENT: BI-RADS CATEGORY 2: Benign. Bao Lyons DO IMG MAMMO PROCEDURES Final Result documented in this encounter Visit Diagnoses Diagnosis Encounter for screening for malignant neoplasm of breast documented in this encounter Care Teams Principle Industrial Hygienist Relationship Specialty Start Date End Date Bao Lyons DO PCP - General 05/09/16 10/03/21 Bao Lyons DO 05/09/16 10/03/21 documented as of this encounter
--- OUTSIDE RECORDS SUMMARY | 2024-03-23 01:53 | XMS_ITS | Encounter Summary ---
Author Organization [facility] Address [address] [place] [address] Care Team Providers Care Nautical Instrument Mechanic Name Role Phone Gagandeep Lyons DO Primary Care Provider [phone] Gagandeep Lyons DO Unavailable [phone] Reason for Visit * Cardiology (Routine) - Closed Specialty Diagnoses / Procedures Referred By Contac t Referred To Contact Cardiology Imaging Diagnoses CARLIN (dyspnea on exertion) Procedures Echo Exercise Stress W Doppler/CF Gagandeep Lyons, DO Phone: tel: fax: [facility] Medical [facility] Cardiology [address] [place] [address] Phone: tel: fax: Referral ID Status Reason Start Date Expiration Date Visits Re quested Visits Authorized [id number] Closed 02/17/2018 08/29/2019 1 1 Encounter Details Date Type Department Care Team (Latest Contact Info) Description 03/12/2018 2:00 PM PILE DRIVER OPERATOR Ancillary Procedure [facility] Cardiology [address] [place] [phone] CARLIN (dyspnea on exertion) Social History Tobacco Use Types Packs/Day Years Used Date Smoking Tobacco: Never Comments Unknown Sex and Gender Information Value Date Recorded Sex Assigned at Not on file Legal Sex Female 5:35 PM PILE DRIVER OPERATOR Gender Identity Not on file Sexual Orientation Not on file documented as of this encounter Last Filed Vital Signs Vital Sign Reading Time Taken Comments Blood Pressure - - Pulse - - Temperature - - Respiratory Rate - - Oxygen Saturation - - Inhaled Oxygen Concentration - - Weight 98.9 kg (218 lb) 03/12/2018 1:46 PM PILE DRIVER OPERATOR Height 154.9 cm (5' 1 ) 03/12/2018 1:46 PM PILE DRIVER OPERATOR Body Mass Index 41.19 03/12/2018 1:46 PM PILE DRIVER OPERATOR documented in this encounter Plan of Treatment Not on file documented as of this encounter Procedures Procedure Name Priority Date/Time Associated Diagnosis Comments STRESS ECHO EXERCISE WO DOPPLER/CF WO CONTRAST Routine 03/12/2018 2:33 PM PILE DRIVER OPERATOR CARLIN (dyspnea on exertion) documented in this encounter Results * STRESS ECHO EXERCISE WO DOPPLER/CF WO CONTRAST (03/12/2018 2:33 PM PILE DRIVER OPERATOR) Anatomical Region Laterality Modality Ultrasound 03/12/2018 1:41 PM PILE DRIVER OPERATOR Narrative 03/12/2018 5:17 PM PILE DRIVER OPERATOR [facility] [address] [facility] [address] [address] [address] [facility] [address] [address] P:[phone] P:[phone] Echocardiographic Report Patient Name: LINDSAY PEDERSEN : [id number] Study Date: 03/12/2018 1:41:45 PM Gender: F Tech: Location: [place] Ref.Physician: GAGANDEEP LYONS Height(Cm): 155 BSA: 1.96 Weight(Kg): 98.89 Heart Rate: 80 BP: 126/72 Quality: Good Order Physician: GAGANDEEP LYONS Procedures: Stress Echo Report: Treadmill stress echocardiogram. Indications: Dyspnea on Exertion, Medications: HCTZ, Atorvastatin, Amlodipine, Losartan, Metformin, and Stress test monitored by: Salvador Garcia RN, BSN. Findings: Stress Echo: Protocol - Jayden Protocol. Exercise Time - 4.00 min. Baseline Heart Rate - 80. Peak Heart Rate - 153. Predicted Maximal Heart Rate - 158. 85% MPHR - 134. Baseline BP - 126/72. Peak BP - 170/74. Rate Pressure Product - 58617. METS Achieved - 7.00. Percent Predicted Maximal HR Achieved - 97 %. Interpretation Site: Exam was interpreted at [facility]. Performance: Average exercise functional capacity. Hemodynamic Response: Normal blood pressure response. Arrhythmia: Occasional isolated premature ventricular contraction. Termination: Limiting Dyspnea. Resting ECG: Normal EKG. Exercise ECG: Non-diagnostic ST-T wave changes with exercise. Resting LV Function: Normal left ventricular size, normal systolic function, normal wall thickness with no segmental wall motion abnormalities at rest. Post Stress LV Function: Post exercise left ventricular global systolic contractility is hyperdynamic, no segmental wall motion abnormalities, and chamber size is smaller. Conclusions: Protocol - Jayden Protocol. Exercise Time - 4.00 min. Baseline Heart Rate - 80. Peak Heart Rate - 153. Predicted Maximal Heart Rate - 158. 85% MPHR - 134. Baseline BP - 126/72. Peak BP - 170/74. Rate Pressure Product - 96108. METS Achieved - 7.00. Percent Predicted Maximal HR Achieved - 97 %. Normal EKG. Non-diagnostic ST-T wave changes with exercise. Normal left ventricular size, normal systolic function, normal wall thickness with no segmental wall motion abnormalities at rest. Post exercise left ventricular global systolic contractility is hyperdynamic, no segmental wall motion abnormalities, and chamber size is smaller. Stress echocardiogram negative for inducible ischemia at MPHR: 97 %. Electronically Signed By: Kwesi Saravia MD, [facility] 2018-03-12 17:17:32 PILE DRIVER OPERATOR CC: CC: Procedure Note Kwesi Saravia MD - 03/12/2018 [facility] [address] [place] [address] [address], [place] [address] [address] [facility] [address] [address] P:[phone] P:[phone] Echocardiographic Report Patient Name: Tere PEDERSEN ID: [id number] : [id number] Date: 03/12/2018 1:41:45 PM Gender: FAccession #: [id number] Tech: GMLocation: [place] Ref.Physician: Rachel LYONSight(Cm): 155 BSA: 1.96Weight(Kg): 98.89 Heart Rate: 80BP: 126/72 Quality: GoodOrder Physician: GAGANDEEP LYONS Procedures: Stress Echo Report: Treadmill stress echocardiogram. Indications: Dyspnea on Exertion, Medications: HCTZ, Atorvastatin, Amlodipine,Losartan, Metformin, and Stress test monitored by: Salvador Garcia RN, BSN. Findings: Stress Echo: Protocol - Jayden Protocol. Exercise Time - 4.00 min. Baseline Heart Rate -80. Peak Heart Rate - 153. Predicted Maximal Heart Rate - 158. 85% MPHR - 134. BaselineBP - 126/72. Peak BP - 170/74. Rate Pressure Product - 69751. METS Achieved - 7.00.Percent Predicted Maximal HR Achieved - 97 %. Interpretation Site: Exam was interpreted at [facility]. Performance: Average exercise functional capacity. Hemodynamic Response: Normal blood pressure response. Arrhythmia: Occasional isolated premature ventricular contraction. Termination: Limiting Dyspnea. Resting ECG: Normal EKG. Exercise ECG: Non-diagnostic ST-T wave changes with exercise. Resting LV Function: Normal left ventricular size, normal systolic function, normal wallthickness with no segmental wall motion abnormalities at rest. Post Stress LV Function: Post exercise left ventricular global systolic contractility ishyperdynamic, no segmental wall motion abnormalities, and chamber size is smaller. Conclusions: Protocol - Jayden Protocol. Exercise Time - 4.00 min. Baseline Heart Rate -80. Peak Heart Rate - 153. Predicted Maximal Heart Rate - 158. 85% MPHR - 134. BaselineBP - 126/72. Peak BP - 170/74. Rate Pressure Product - 92057. METS Achieved - 7.00.Percent Predicted Maximal HR Achieved - 97 %. Normal EKG. Non-diagnostic ST-T wave changes with exercise. Normal left ventricular size, normal systolic function, normal wallthickness with no segmental wall motion abnormalities at rest. Post exercise left ventricular global systolic contractility ishyperdynamic, no segmental wall motion abnormalities, and chamber size is smaller. Stress echocardiogram negative for inducible ischemia at MPHR: 97 %. Electronically Signed By: Kwesi Saravia MD, [facility] 2018-03-12 17:17:32 PILE DRIVER OPERATOR CC: CC: Gagandeep Lyons DO CV ECHO PROCEDURES Final R esult documented in this encounter Visit Diagnoses Diagnosis CARLIN (dyspnea on exertion) Other dyspnea and respiratory abnormality documented in this encounter Care Teams Nautical Instrument Mechanic Relationship Specialty Start Date End Date Gagandeep Lyons DO PCP - General 05/09/16 10/03/21 Gagandeep Lyons DO 05/09/16 10/03/21 documented as of this encounter
--- OUTSIDE RECORDS SUMMARY | 2024-03-23 01:58 | XMS_ITS | Encounter Summary ---
Author Organization [facility] Address [address] Aparicio: Epic Prelude ADT YA QUIÑONEZ [address] Care Team Providers Care Ecommerce Marketing Manager Name Role Phone Bao Lyons DO Primary Care Provider Encounter Details Date Type Department Care Team (Latest Contact Info) Description 06/18/2019 Travel Social History Tobacco Use Types Packs/Day Years Used Date Smoking Tobacco: Former Cigarettes Q uit: 10/20/1988 Smokeless Tobacco: Never Comments:only when she drank alcohol about 5 cigs a month Alcohol Use Standard Drinks/Week Comments Yes 0 (1 standard drink = 0.6 oz pur e alcohol) Sex and Gender Information Value Date Recorded Sex Assigned at Not on file Gender Identity Not on file Sexual Orientation Not on file COVID-19 Exposure Response Date Recorded In the last month, have you been in contact with someone who was confirmed or suspected to have Coronavirus / COVID-19? No / Unsure 06/18/2019 9:31 AM CDT documented as of this encounter Plan of Treatment Not on file documented as of this encounter Visit Diagnoses Not on filedocumented in this encounter Care Teams Ecommerce Marketing Manager Relationship Specialty Start Date End Date Bao Lyons DO [address] [address] PCP - General Internal Medicine 09/21/18 documented as of this encounter
--- OUTSIDE RECORDS SUMMARY | 2024-03-23 01:58 | XMS_ITS | Encounter Summary ---
Author Organization [facility] Address [address] [facility] [facility] [address] Aparicio: Epic Prelude ADT YA QUIÑONEZ [address] Care Team Providers Care Electrician Aircraft Name Role Phone Bao Lyons DO Primary Care Provider Encounter Details Date Type Department Care Team (Latest Contact Info) Description 08/11/2020 Travel Social History Tobacco Use Types Packs/Day [...] have Coronavirus / COVID-19? No / Unsure 08/11/2020 8:31 AM CDT documented as of this encounter Plan of Treatment Not on file documented as of this encounter Visit Diagnoses Not on filedocumented in this encounter Care Teams Electrician Aircraft Relationship Specialty Start Date End Date Bao Lyons DO [address] [address] PCP - General Internal Medicine 09/21/18 documented as of this encounter
--- OUTSIDE RECORDS SUMMARY | 2024-03-23 01:58 | XMS_ITS | Encounter Summary ---
Author Organization [facility] Address [address] [place] [address] Care Team Providers Care Telegrapher Agent Name Role Phone Bao Lyons DO Primary Care Provider Encounter Details Date Type Department Care Team (Late st Contact Info) Description 08/04/2020 Orders Only [facility] Oncology and Hematology - Kei [address] [phone] Provider, Abstract NO ADDRESS ON FILE Social History Tobacco Use Types Packs/Day Years [...] Procedure Name Priority Date/Time Associated Diagnosis Comments CREATININE, RANDOM URINE Routine 08/02/2020 documented in this encounter Results * CREATININE, RANDOM URINE (08/02/2020) Urine URINE SPECIMEN OBTAINED BY CLEAN CATCH PROCEDURE / Unknown Abstract Provider URINE ORDERABLES documented in this encounter Visit Diagnoses Not on filedocumented in this encounter Care Teams Telegrapher Agent Relationship Specialty Start Date End Date Bao Lyons DO [address] [facility] [address] [place] [address] PCP - General Internal Medicine 09/21/18 documented as of this encounter
--- OUTSIDE RECORDS SUMMARY | 2024-03-23 01:58 | XMS_ITS | Encounter Summary ---
Author Organization [facility] Address [address] [facility] [address] Aparicio: Epic Prelude ADT YA QUIÑONEZ [address] Care Team Providers Care Production Director Name Role Phone Bao Lyons DO Primary Care Provider Encounter Details Date Type Department Care Team (Latest Contact Info) Description 06/24/2019 Travel Social History Tobacco Use Types Packs/Day [...] have Coronavirus / COVID-19? No / Unsure 06/24/2019 1:48 PM CDT documented as of this encounter Plan of Treatment Not on file documented as of this encounter Visit Diagnoses Not on filedocumented in this encounter Care Teams Production Director Relationship Specialty Start Date End Date Bao Lyons DO [address] [address] PCP - General Internal Medicine 09/21/18 documented as of this encounter
--- OUTSIDE RECORDS SUMMARY | 2024-03-23 01:58 | XMS_ITS | Encounter Summary ---
Author Organization [facility] Address [address] [place] [address] Care Team Providers Care Sales Team Member Name Role Phone Bao Lyons Primary Care Provider Reason for Visit * Reason Comments Follow Up 4 month f/u w/labs Encounter Details Date Type Department Care Team (Late st Contact Info) Description 06/24/2019 2:15 PM CDT Office Visit [facility] Oncology and Hematology - [place] [address] [place] [address] [address] [place] [address] Wilfred Choudhury MD [address] [facility] [address] [place] [address] Chronic anemia (Primary Dx) Social History Tobacco Use Types [...] PM CDT documented as of this encounter Last Filed Vital Signs Vital Sign Reading Time Taken Comments Blood Pressure 138/84 06/24/2019 1:54 PM CDT Pulse 88 06/24/2019 1:54 PM CDT Temperature 36.7 ??C (98 ??F) 06/24/2019 1:54 PM CDT Respiratory Rate - - Oxygen Saturation 95% 06/24/2019 1:54 PM CDT Inhaled Oxygen Concentration - - Weight 98.7 kg (217 lb 11.2 oz) 06/24/2019 1:54 PM CDT Height 154.9 cm (5' 1 ) 06/24/2019 1:54 PM CDT Body Mass Index 41.13 06/24/2019 1:54 PM CDT documented in this encounter Progress Notes * Wilfred Choudhury MD - 06/24/2019 6:21 PM CDT HEMATOLOGY / ONCOLOGY PROGRESS NOTE Patient Identification: Name: Lindsay Pedersen Age: 64 y.o. Sex: female : 1955 DIAGNOSIS Multifactorial anemia with iron deficiency and anemia of chronic kidney disease CURRENT TREATMENT Iron 325 mg twice daily TREATMENT HISTORY SUBJECTIVE Patient came into the office for follow-up visit. She denies any excessive tiredness and fatigue. She has been dealing with intermittent constipation with iron replacement and take iron infrequently.Denies any other complaints. Review of system Constitutional: denies fevers, sweats, no weight loss, denies any excessive tiredness and fatigue HEENT: denies sinus congestion, hearing or vision problems Respiratory: denies cough, dyspnea, wheeze Cardiovascular: denies chest pain, exertional chest pressure/discomfort, nausea, syncope, shortnessof breath GI: denies diarrhea, dsyphagia, reflux symptoms, vomiting, melena, complain of intermittent constipation : denies dysuria, frequency, incontinence, urgency Integumentary system: no lymphadenopathy, sweats, flushing Musculoskeletal: denies: myalgia, arthralgia Neurological: denies blurry or disturbed vision, numbness/weakness, dizziness Skin: No lumps, bumps or rashes. 12 point review system was reviewed and as above Objective: Vital signs in last 24 hours: As per nursing note Exam: General appearance: alert, cooperative, no distress, appears stated age Head: normocephalic, without obvious abnormality, atraumatic Eyes: conjunctivae/corneas clear, EOM's intact Ears: normal external ear canals AU Nose: Nares normal. Septum midline. Mucosa normal. No drainage or sinus tenderness Throat: Lips, mucosa, and tongue normal. Teeth and gums normal Neck: supple, symmetrical, trachea midline. Lungs: clear to auscultation bilaterally Heart: regular rate and rhythm, S1, S2 normal, no murmur, click, rub or gallop Abdomen: soft, non-tender. Bowel sounds normal. No masses, No organomegaly Extremities: extremities normal, atraumatic, no cyanosis or edema Skin: Skin color, texture, turgor normal. No rashes or lesions Lymph nodes: No lymphadenopathy Neuro: No obvious focal deficit Examination as above [facility] Labs from February 03, 2019 showed WBC 12 hemoglobin 11 MCV 83.6 platelet 340,000 neutrophils 57% creatinine 1.5 Labs from June 17 showed WBC 11.6 hemoglobin 11.7 MCV 84 platelet 296,000 creatinine 1.1 iron 51 iron saturation 16% ferritin 159. @IMAGEIMP@ Assessment: Plan: Patient Active Problem List Diagnosis Date Noted ??? Leukocytosis (leucocytosis) 11/03/2018 ??? Chronic anemia 11/03/2018 Multifactorial anemia with anemia of chronic kidney disease and mild iron deficiency. Labs noted. Hemoglobin slightly improved but iron saturation remains low. She is taking iron infrequently due to constipation. I have instructed her to take FiberCon and increase iron replacement. I will see her back in 6 months with repeat labs. Reactive leukocytosis. Secondary to degenerative disc disease. WBC remains slightly elevated. Chronic kidney disease. Stable and followed by Dr. Cramer. Type 2 diabetes. Stable on Onglyza. TOBACCO COUNSELING She is not a tobacco user. 06/24/2019 Wilfred Choudhury MD documented in this encounter Plan of Treatment Scheduled Orders Name Type Priority Associated Diagnoses Orde r Schedule FERRITIN Lab Routine Chronic anemia Expected: 12/23/2019, Expires: 1 documented as of this encounter Results * IRON, TIBC, AND PERCENT SATURATION (01/03/2020) Blood Wilfred Choudhury MD CHEMISTRY ORDERABLES NON [facility] * CBC WITH DIFFERENTIAL (01/03/2020) Blood Wilfred Choudhury MD HEMATOLOGY ORDERABLE S NON [facility] documented in this encounter Visit Diagnoses Diagnosis Chronic anemia- Primary Anemia, unspecified documented in this encounter Care Teams Sales Team Member Relationship Specialty Start Date End Date Bao Lyons DO [address] [facility] [address] [place] [address] PCP - General Internal Medicine 09/21/18 documented as of this encounter
--- OUTSIDE RECORDS SUMMARY | 2024-03-23 01:58 | XMS_ITS | Encounter Summary ---
Author Organization [facility] Address [address] [place] [address] Care Team Providers Care Customs Brokerage Manager Name Role Phone Bao Lyons Primary Care Provider Encounter Details Date Type Department Care Team (Late st Contact Info) Description 12/29/2019 Orders Only [facility] Oncology and Hematology - Kei [address] [phone] Christina Beltran RN Chronic anemia Social History Tobacco Use Types Packs/Day Years [...] Procedure Name Priority Date/Time Associated Diagnosis Comments IRON, TIBC, AND PERCENT SATURATION Routine 2019 Chronic anemia CBC WITH DIFFERENTIAL Routine 01/03/2020 Chronic anemia documented in this encounter Results * CBC WITH DIFFERENTIAL (01/03/2020) Blood Wilfred Choudhury MD HEMATOLOGY ORDERABLE S NON [facility] * IRON, TIBC, AND PERCENT SATURATION (01/03/2020) Blood Wilfred Choudhury MD CHEMISTRY ORDERABLES NON [facility] documented in this encounter Visit Diagnoses Diagnosis Chronic anemia Anemia, unspecified documented in this encounter Care Teams Customs Brokerage Manager Relationship Specialty Start Date End Date Bao Lyons DO [facility] [address] [place] [address] PCP - General Internal Medicine 09/21/18 documented as of this encounter
--- OUTSIDE RECORDS SUMMARY | 2024-03-23 01:58 | XMS_ITS | Encounter Summary ---
Author Organization [facility] Address [address] [place] [address] Care Team Providers Care Crowning Inspector Name Role Phone Bao Lyons Primary Care Provider Reason for Visit * Reason Comments Follow Up Results Encounter Details Date Type Department Care Team (Late st Contact Info) Description 11/03/2018 1:15 PM CDT Office Visit [facility] Oncology and Hematology - [place] [address] [place] [address] [address] [place] [address] Wilfred Choudhury MD [address] [facility] [address] [place] [address] Chronic anemia (Primary Dx); Leukemoid reaction Social History Tobacco Use Types Packs/Day Years [...] Sign Reading Time Taken Comments Blood Pressure 124/80 11/03/2018 1:17 PM CDT Pulse 83 11/03/2018 1:17 PM CDT Temperature 36.8 ??C (98.2 ??F) 11/03/2018 1:17 PM CD T Respiratory Rate - - Oxygen Saturation 96% 11/03/2018 1:17 PM CDT Inhaled Oxygen Concentration - - Weight 98.5 kg (217 lb 1.6 oz) 11/03/2018 1:17 P M CDT Height 154.9 cm (5' 1 ) 11/03/2018 1:17 PM CDT Body Mass Index 41.02 11/03/2018 1:17 PM CDT documented in this encounter Progress Notes * Wilfred Choudhury MD - 11/03/2018 2:17 PM CDT HEMATOLOGY / ONCOLOGY PROGRESS NOTE Patient Identification: Name: Lindsay Pedersen Age: 63 y.o. Sex: female : 1955 Subjective: HPI This is a 63-year-old slightly obese female with diabetes, hypertension and hyperlipidemia. She was referred to me for anemia and leukocytosis found on the routine blood testing done on September 05, 2018. WBC came back elevated at 16.0 with hemoglobin of 10.8. According to the patient she was not sick with any infection at that time. She has gained 10 pound weight in last 6 months. She denies being a vegetarian. She does have some constipation. She complain of tiredness and fatigue with some dizziness. She denies any bleeding and bruising including melena and hematochezia. She denies any signs of infection. Denies any new lumps bumps and lymphadenopathy. Patient came into the office today to discuss the labs. Complain of tiredness and fatigue. She doeshave degenerative disc disease with mild back pain. She has some difficulty urination with low stream. Otherwise denies any other new complaints. ?? Interval History: No change in interval history. Review of system Constitutional: No fever; no night sweats; no anorexia; no weight loss; complain of Respiratory: No shortness of breath; no pleuritic chest pain; no cough; no hemoptysis Cardiac: No cardiac-like chest pain; no palpitations; no orthopnea; no PND; no CARLIN GI: No abdominal pain; no nausea; no vomiting; no diarrhea; no hematochezia; no melena Musculosketetal: no bone pain; no arthralgia; no joint swelling; no myalgia; Neuro: No headache; no change in vision; no sensory changes; no muscle weakness; no confusion; no seizures Ext no edema 12 point review systems reviewed Objective: Vital signs in last 24 hours: As per nursing note Exam: Gen: NAD Lungs: Clear Cardiac: S1 and S2 without murmurs or gallops Abd: Soft, tender, no hepatomegally, no masses Extr: No LE edema Examination as above Scheduled Meds:@MEDSSCHEDULED@ Continuous Infusions:@MEDSINFUSIONS@ Data Review: [facility] Labs from October 20 showed WBC 14.3 hemoglobin 11 platelet 323,000 neutrophils 58% sedimentation rate56 C-reactive protein more than 2.5 creatinine 1.2 iron 39 iron saturation 12% ferritin 172 [id number] 618. TSH 2.0. @IMAGEIMP@ Assessment: Plan: There are no active problems to display for this patient. ? Normocytic anemia. Likely secondary to anemia of chronic kidney disease. Iron saturation is slightly low. I have instructed her to take oral iron once a day. I will repeat labs in 3 months. Reactive leukocytosis with elevated CRP and sedimentation rate. This is likely secondary to degenerative disc disease. Type 2 diabetes. Patient is on Onglyza. Poor urine stream. I have instructed her to contact primary care doctor for urology consultation. ? TOBACCO COUNSELING She is not a tobacco user. 11/03/2018 Wilfred Choudhury MD documented in this encounter Plan of Treatment Scheduled Orders Name Type Priority Associated Diagnoses Orde r Schedule CBC WITH DIFFERENTIAL Lab Routine Chronic anemia Expected: 01/26/2019, Expires: 11/03/2019 BASIC METABOLIC PANEL Lab Routine Chronic anemia Expected: 01/26/2019, Expires: 11/03/2019 documented as of this encounter Visit Diagnoses Diagnosis Chronic anemia- Primary Anemia, unspecified Leukemoid reaction documented in this encounter Care Teams Crowning Inspector Relationship Specialty Start Date End Date Bao Lyons DO [address] [facility] [address] [place] [address] PCP - General Internal Medicine 09/21/18 documented as of this encounter
--- OUTSIDE RECORDS SUMMARY | 2024-03-23 01:58 | XMS_ITS | Encounter Summary ---
Author Organization [facility] [employer] [facility] Address [address] [place] [address] Care Team Providers Care Hydrocrane Operator Name Role Phone Bao Lyons DO Primary Care Provider Encounter Details Date Type Department Care Team (Late st Contact Info) Description 08/03/2020 Orders Only [facility] Oncology and Hematology - Kei [address] [id number] Kavya Cueto Chronic anemia; Leukocytosis, unspecified type Social History Tobacco Use Types Packs/Day [...] Procedure Name Priority Date/Time Associated Diagnosis Comments HEMOGLOBIN A1C Routine 08/02/2020 documented in this encounter Results * HEMOGLOBIN A1C (08/02/2020) Blood Abstract Provider CHEMISTRY ORDERABLES documented in this encounter Visit Diagnoses Diagnosis Chronic anemia Anemia, unspecified Leukocytosis, unspecified type documented in this encounter Care Teams Hydrocrane Operator Relationship Specialty Start Date End Date Bao Lyons DO [address] [facility] [address] [place] [address] PCP - General Internal Medicine 09/21/18 documented as of this encounter
--- OUTSIDE RECORDS SUMMARY | 2024-03-23 01:58 | XMS_ITS | Encounter Summary ---
Author Organization [facility] Address [address] [facility] [address] Aparicio: Epic Prelude ADT YA QUIÑONEZ [address] Care Team Providers Care Telephone Sales Representative Name Role Phone Bao Lyons DO Primary Care Provider Encounter Details Date Type Department Care Team (Latest Contact Info) Description 01/06/2020 Travel Social History Tobacco Use Types Packs/Day [...] have Coronavirus / COVID-19? No / Unsure 01/06/2020 12:49 PM CDT documented as of this encounter Plan of Treatment Not on file documented as of this encounter Visit Diagnoses Not on filedocumented in this encounter Care Teams Telephone Sales Representative Relationship Specialty Start Date End Date Bao Lyons DO [address] [address] PCP - General Internal Medicine 09/21/18 documented as of this encounter
--- OUTSIDE RECORDS SUMMARY | 2024-03-23 01:58 | XMS_ITS | Encounter Summary ---
Author Organization [facility]3] [employer] [facility] Address [address] [place] [address] Care Team Providers Care Knife Glazer Name Role Phone Bao Lyons Primary Care Provider Reason for Visit * Reason Comments Follow Up Encounter Details Date Type Department Care Team (Late st Contact Info) Description 08/11/2020 9:15 AM CDT Office Visit [facility] ([facility]3] Oncology and Hematology - Kei [address] [place] [address] [facility] [address] [place] [address] [place] [address] [place] [address] [address] [place] [address] Chronic anemia (Primary Dx) Social [...] AM CDT documented as of this encounter Last Filed Vital Signs Vital Sign Reading Time Taken Comments Blood Pressure 154/90 08/11/2020 9:15 AM CDT Pulse 77 08/11/2020 9:15 AM CDT Temperature - - Respiratory Rate - - Oxygen Saturation 95% 08/11/2020 9:15 AM CDT Inhaled Oxygen Concentration - - Weight 100.1 kg (220 lb 11.2 oz) 08/11/2020 9:15 AM CDT Height 154.9 cm (5' 1 ) 08/11/2020 9:15 AM CDT Body Mass Index 41.7 08/11/2020 9:15 AM CDT documented in this encounter Progress Notes * Wilfred Choudhury MD - 08/11/2020 11:31 AM CDT HEMATOLOGY / ONCOLOGY PROGRESS NOTE Patient Identification: Name: Lindsay Pedersen Age: 65 y.o. Sex: female : 1955 DIAGNOSIS Multifactorial anemia with iron deficiency and anemia of chronic kidney disease CURRENT TREATMENT Iron 325 mg 3 times a week. TREATMENT HISTORY SUBJECTIVE Patient came into the office for follow-up visit. She denies any bleeding and bruising. No tiredness and fatigue. Weight and appetite stable. No other new complaints. Review of system Constitutional: denies fevers, [...] lumps, bumps or rashes. 12 point review systems reviewed and as above Objective: Vital signs [...] iron 51 iron saturation 16% ferritin 159. Labs from August 02 showed iron 39 saturation 12% ferritin 175 hemoglobin 12.2 WBC 12.9 platelet 347,000 neutrophils 49% lymphocyte 44% @IMAGEIMP@ Assessment: Plan: Patient Active Problem List Diagnosis Date Noted ??? Diabetes mellitus 01/06/2020 ??? Leukocytosis (leucocytosis) 11/03/2018 ??? Chronic anemia 11/03/2018 Multifactorial anemia with anemia of chronic kidney disease and mild iron deficiency. Labs noted. Hemoglobin has improved. She will continue oral iron 3 times a week due to constipation. I recommended her to take vitamin C as well. Reactive leukocytosis. Secondary to degenerative disc disease. WBC remains elevated. No need for bone marrow biopsy and flow cytometry unless WBC continues to rise. Chronic kidney disease. Stable. Type 2 diabetes. Stable. TOBACCO COUNSELING She is not a tobacco user. 08/11/2020 Wilfred Choudhury MD documented in this encounter Plan of Treatment Not on file documented as of this encounter Results * FERRITIN (08/07/2021 1:01 PM CDT) FERRITIN 200 16 - 288 ng/mL [facility] Comment: Test Performed at: [facility] [address] [place], [place] ??[id number] Steven Moon D.O., MPH Blood 08/07/2021 1:01 PM CDT 08/07/2021 1:01 PM CDT Wilfred Choudhury MD CHEMISTRY ORDERABLES [facility] [phone] documented in this encounter Visit Diagnoses Diagnosis Chronic anemia- Primary Anemia, unspecified documented in this encounter Care Teams Knife Glazer Relationship Specialty Start Date End Date Bao Lyons DO [address] [phone] PCP - General Internal Medicine 09/21/18 documented as of this encounter
--- OUTSIDE RECORDS SUMMARY | 2024-03-23 01:58 | XMS_ITS | Encounter Summary ---
Author Organization [facility] [employer] [facility] Address [address] [place] [address] Care Team Providers Care Tank Car Loader Name Role Phone Bao Lyons Primary Care Provider Reason for Visit * Reason Comments Follow Up 3 month f/u Encounter Details Date Type Department Care Team (Late st Contact Info) Description 02/03/2019 3:30 PM MEDICAL INSTRUCTOR Office Visit [facility] Oncology and Hematology - Kei [address] [place] [address] [facility] [address] [place] [address] [place] [address] [place] [address] [address] [place] [address] Chronic anemia (Primary Dx) Social [...] Sign Reading Time Taken Comments Blood Pressure 139/81 02/03/2019 3:20 PM MEDICAL INSTRUCTOR Pulse 91 02/03/2019 3:20 PM MEDICAL INSTRUCTOR Temperature 36.6 ??C (97.9 ??F) 02/03/2019 3:20 PM CS T Respiratory Rate - - Oxygen Saturation 97% 02/03/2019 3:20 PM MEDICAL INSTRUCTOR Inhaled Oxygen Concentration - - Weight 98.6 kg (217 lb 6.4 oz) 02/03/2019 3:20 P M MEDICAL INSTRUCTOR Height 154.9 cm (5' 1 ) 02/03/2019 3:20 PM MEDICAL INSTRUCTOR Body Mass Index 41.08 02/03/2019 3:20 PM MEDICAL INSTRUCTOR documented in this encounter Progress Notes * Wilfred Choudhury MD - 02/03/2019 3:36 PM CST HEMATOLOGY / ONCOLOGY PROGRESS NOTE Patient Identification: Name: Lindsay Pedersen Age: 64 y.o. Sex: female : 1955 DIAGNOSIS Multifactorial anemia with iron deficiency and anemia of chronic kidney disease CURRENT TREATMENT Iron 325 mg twice daily TREATMENT HISTORY SUBJECTIVE Patient complain of some tiredness and fatigue but denies any bleeding and bruising. Denies any chest pain and shortness of breath. No other new complaints. Review of system Constitutional: denies fevers, sweats, no weight loss, complain of some tiredness and fatigue HEENT: denies sinus congestion, hearing or vision problems Respiratory: denies cough, dyspnea, wheeze Cardiovascular: denies chest pain, exertional chest pressure/discomfort, nausea, syncope, shortnessof breath GI: denies constipation, diarrhea, dsyphagia, reflux symptoms, vomiting, melena : denies dysuria, frequency, incontinence, urgency Integumentary system: no lymphadenopathy, sweats, flushing Musculoskeletal: denies: myalgia, arthralgia Neurological: denies blurry or disturbed vision, numbness/weakness, dizziness Skin: No lumps, bumps or rashes. Objective: Vital signs in last 24 hours: [...] No lymphadenopathy Neuro: No obvious focal deficit PATH LABS Labs from February 03, 2019 showed WBC 12 hemoglobin 11 MCV 83.6 platelet 340,000 neutrophils 57% creatinine 1.5 @IMAGEIMP@ Assessment: Plan: Patient Active Problem List Diagnosis Date Noted ??? Leukocytosis (leucocytosis) 11/03/2018 ??? Chronic anemia 11/03/2018 Multifactorial anemia with anemia of chronic kidney disease and mild iron deficiency. Previous labsshowed low iron saturation. Patient was instructed to start oral iron but did not started. I have again instructed her to start oral iron 325 mg twice a day. I will repeat labs in 4 months. Reactive leukocytosis with elevated C-reactive protein. This is secondary to degenerative disc disease. WBC count has improved to 12,000 from 14.3 previously. ? Chronic kidney disease. Patient will follow-up with Dr. Darian Cramer. Type 2 diabetes. Patient is on Onglyza. TOBACCO COUNSELING She is not a tobacco user. 02/03/2019 Wilfred Choudhury MD CAL INSTRUCTOR documented in this encounter Plan of Treatment Scheduled Orders Name Type Priority Associated Diagnoses Orde r Schedule FERRITIN Lab Routine Chronic anemia Expected: 05/26/2019, Expires: 02/03/2020 BASIC METABOLIC PANEL Lab Routine Chronic anemia Expected: 05/26/2019, Expires: 02/03/2020 documented as of this encounter Results * IRON, TIBC, AND PERCENT SATURATION (06/17/2019) Blood Wilfred Choudhury MD CHEMISTRY ORDERABLES Performing Organization Address [facility] Co de Phone Number NON [employer] [facility] * CBC WITH DIFFERENTIAL (06/17/2019) Blood Wilfred Choudhury MD HEMATOLOGY ORDERABLE S NON [facility] documented in this encounter Visit Diagnoses Diagnosis Chronic anemia- Primary Anemia, unspecified documented in this encounter Care Teams Tank Car Loader Relationship Specialty Start Date End Date Bao Lyons DO [address] [address] PCP - General Internal Medicine 09/21/18 documented as of this encounter
--- OUTSIDE RECORDS SUMMARY | 2024-03-23 01:58 | XMS_ITS | Clinical Summary ---
Author Organization [facility] Address [address] [place] [address] Phone Care Team Providers Care Bilingual Operator Name Role Phone FlorentinoBao potter Primary Care Provider [phone] Allergies No known active allergies Medications Medication Sig Dispensed Refills Start Date End Date Status ONGLYZA 2.5 MG tablet Take 2.5 mg by mouth 1 (one) time each day 2 10/17/2018 Active losartan (COZAAR) 100 MG tablet TAKE 1 TABLET BY MOUTH ONCE DAILY 02/23/2018 Active hydroCHLOROthiazide (MICROZIDE) 12.5 MG capsule Take 12.5 mg by mouth 1 (one) time each day 1 10/17/2018 Active atorvastatin (LIPITOR) 10 MG tablet TK 1 T PO D 03/12/2018 Active amLODIPine (NORVASC) 10 MG tablet Take 10 mg by mouth Act denis FLUZONE QUADRIVALENT 0.5 ML suspension prefilled syringe PHARMACIST ADMINISTERED IMMUNIZATION ADMINISTERED AT TIME OF DISPENSING 0 12/19/2018 Active Active Problems Problem Noted Date Diagnosed Date Chronic anemia 11/03/2018 Leukocytosis 11/03/2018 Chronic kidney disease stage 3 10/26/2018 Benign neoplastic disease 05/07/2016 Blood in urine 06/18/2012 Hypertension 06/18/2012 Proteinuria 06/18/2012 Immunizations Name Administration Dates Next Due Influenza TIV (IM) 12/19/2018 MMR 07/20/2018 Family History Medical History Relation Comments Kidney disease Neg Hx Social History Tobacco Use Types Packs/Day Years Used Date Smoking Tobacco: Former Smokeless Tobacco: Never Alcohol Use Standard Drinks/Week Comments Yes 0 (1 standard drink = 0.6 oz pur e alcohol) rare Sex and Gender Information Value Date Recorded Sex Assigned at Not on file Gender Identity Not on file Sexual Orientation Not on file Last Filed Vital Signs Vital Sign Reading Time Taken Comments Blood Pressure 122/82 01/28/2019 9:20 AM FENCE MAKER Pulse 84 01/28/2019 9:20 AM FENCE MAKER Temperature 36.2 ??C (97.1 ??F) 01/28/2019 9:20 AM CS T Respiratory Rate - - Oxygen Saturation - - Inhaled Oxygen Concentration - - Weight 98 kg (216 lb) 01/28/2019 9:20 AM FENCE MAKER Height 160 cm (5' 3 ) 01/28/2019 9:20 AM FENCE MAKER Body Mass Index 38.26 01/28/2019 9:20 AM FENCE MAKER Plan of Treatment Health Maintenance Due Date Last Done Comments Pneumococcal PPSV23/PCV13 65 + Years / Low and Medium Risk (1 of 4 - PCV) 01/18/2021 Influenza Vaccine (#1) 2023 12/19/2018 Care Teams Bilingual Operator Relationship Specialty Start Date End Date Bao Lyons DO [address] [place] [address] PCP - General Internal Medicine 09/17/18
--- OUTSIDE RECORDS SUMMARY | 2024-03-23 01:58 | XMS_ITS | Encounter Summary ---
Author Organization [facility] Address [address], [place] [address] Phone Care Team Providers Care Supervisor Open Hearth Stockyard Name Role Phone Eloy Bao Primary Care Provider [phone] Encounter Details Date Type Department Care Team (Late st Contact Info) Description 01/28/2019 9:15 AM CITY PLANNING AIDE Office Visit [facility] Nephrology and Hypertension [address] [place] [address], [address] [place] [address] Darian Cramer MD [address] [facility], [address] [place] [address] Hypertension (Primary Dx); Chronic kidney disease stage 3 (CMS-HCC); Persistent proteinuria Social History Tobacco Use Types Packs/Day Years [...] Comments Blood Pressure 122/82 01/28/2019 9:20 AM CITY PLANNING AIDE Pulse 84 01/28/2019 9:20 AM CITY PLANNING AIDE Temperature 36.2 ??C (97.1 ??F) 01/28/2019 9:20 AM CS T Respiratory Rate - - Oxygen Saturation - - Inhaled Oxygen Concentration - - Weight 98 kg (216 lb) 01/28/2019 9:20 AM CITY PLANNING AIDE Height 160 cm (5' 3 ) 01/28/2019 9:20 AM CITY PLANNING AIDE Body Mass Index 38.26 01/28/2019 9:20 AM CITY PLANNING AIDE documented in this encounter Progress Notes * Darian Cramer MD - 01/28/2019 9:15 AM CST Lindsay Pedersen is a pleasant 64 y.o.female. Blanca is a very pleasant lady who has an elevated creatinine. Still sees Dr Choudhury for her anemia. No urinary issues. Patient has diabetes. Pretty good control. a1c above 7, though. The patient has had hypertension for 30 to 35 years. Well controled Patient had scarlet fever when she was [age]. She was told that it affected her kidneys and that she has been spilling protein ever since that. Past history: scarlet fever, hypertension, diabetes, elevated creatinine. Social history: Non smoker nondrinker Allergies: nkda ROS Constitutional: Negative except as above Skin: Negative except as above Pulmonary: Negative except as above Urologic: Negative except as above BP 122/82 Pulse 84 Temp 97.1 ??F (36.2 ??C) Ht 5' 3 (1.6 m) Wt 216 lb (98 kg) BMI 38.26 kg/m?? BSA 2.09 m?? WDWN female in NAD Skin No rash Head NCAT Neck No nodes, No TMG Lungs Clear to Auscultation Cor RRR no rub or gallop Abd BS+ nontender and soft. Ext No edema, Psyche normal not depressed or anxious Recent Labs: 05/02/18 Cr 1.23, gfr 47 09/05/18 Cr 1.43, gfr 39, LDL 90, HDL 39, Trig 44, a1c 7.5 09/15/18 SPE neg, UPE neg, vit d 43 10/26/18 Vit d 30, UA neg, Upro 109 DONELL neg, ESR 66, C' normal, K/L 2.16, Lab Results Component Value Date EGFR 37 (L) 10/26/2018 CREATININE 1.50 (H) 10/26/2018 CREATININEUR 128 10/26/2018 GLUCOSE 119 (H) 10/26/2018 PTH 59 10/26/2018 BUN 17 10/26/2018 NA 135 10/26/2018 K 4.1 10/26/2018 CL 98 10/26/2018 CO2 26 10/26/2018 ALBUMIN 4.1 10/26/2018 CA 9.9 10/26/2018 Radiology 09/22/18 Renal U/S normal kidneys. No GENEVIEVE Impression: Lindsay has an elevated creatinine. serology and immunofix are negative. Urinalysis is bland. Not much protein in the urine This is probably due to hypertension. She has diabetes and going forward this could begin to affect the kidneys. To preserve renal function: Use LAURA/ARB On losartan Control bp This is good Control Cholesterol Check PTH/Vit D This is good Low protein diet Control Sugars Avoid NSAIDs Stay well hydrate The patients BMI is too high. Try to lose weight. Consider seeing a dry cell and battery assembler or PCP for help. The patient has had the pneumovax and the flu shot. Plan Low protein diet Stay hydrated RTC 4 months Assessment/Plan Diagnoses and all orders for this visit: Hypertension Persistent proteinuria Chronic kidney disease stage 3 - Antinuclear Antibodies (DONELL), IFA w/ Refl Titer and Pattern; Future - Complement C3 + C4; Future - Complement Total (CH50); Future - [place] and Lambda Free Light Chains, Qn, Serum; Future - PTH Intact w/o Calcium, Serum; Future - Renal Function Panel (RFP); Future - Erythrocyte Sedimentation Rate (ESR); Future - Total Protein w/ Creatinine, Urine, Random; Future - Urinalysis w/ Reflex to Microscopic; Future - Vitamin D, 25-Hydroxy, Serum; Future Other orders - Vitamin d, 25-Oh, Total,Ia - Vitamin D, 25-Hydroxy, LC/MS/MS Body mass index is 38.26 kg/m??. Follow up plan to address BMI is too high see above. [facility] documented in this encounter Plan of Treatment Scheduled Orders Name Type Priority Associated Diagnoses Orde r Schedule Renal Function Panel (RFP) Lab Routine Chronic kidney disease stage 3 (CMS-HCC) 1 Occurrences starting 01/28/2019 until 01/29/2020 Total Protein w/ Creatinine, Urine, Random Lab Routine Chronic kidney disease stage 3 (CMS-HCC) 1 Occurrences starting 01/28/2019 until 01/29/2020 documented as of this encounter Visit Diagnoses Diagnosis Hypertension- Primary Chronic kidney disease stage 3 (CMS-HCC) Persistent proteinuria documented in this encounter Care Teams Supervisor Open Hearth Stockyard Relationship Specialty Start Date End Date Bao Lyons DO [address] [place] [address] PCP - General Internal Medicine 09/17/18 documented as of this encounter
--- OUTSIDE RECORDS SUMMARY | 2024-03-23 01:58 | XMS_ITS | Encounter Summary ---
Author Organization [facility] [employer] [facility] Address [address] [place] [address] Care Team Providers Care Wood Gang Sawyer Name Role Phone Bao Lyons Primary Care Provider Reason for Visit * Reason Comments Follow Up 6 month f/u w/labs Encounter Details Date Type Department Care Team (Late st Contact Info) Description 01/06/2020 1:00 PM CDT Office Visit [facility] Oncology and Hematology - Tisha [address] Ven[address] Lemons [address] [address] Jody Ruiz ANP NO ADDRESS ON FILE Chronic anemia (Primary Dx); Leukocytosis, unspecified type Social History Tobacco Use [...] Sign Reading Time Taken Comments Blood Pressure 141/83 01/06/2020 1:00 PM CDT 144/83 hr 88 Pulse 88 01/06/2020 1:00 PM CDT Temperature 36.9 ??C (98.5 ??F) 01/06/2020 1 :00 PM CDT Respiratory Rate - - Oxygen Saturation 95% 01/06/2020 1:0 0 PM CDT Inhaled Oxygen Concentration - - Weight 98.4 kg (216 lb 14.4 oz) 01/06/2020 1:00 PM CDT Height 154.9 cm (5' 1 ) 01/06/2020 1:00 PM CDT Body Mass Index 40.98 01/06/2020 1:00 PM CDT documented in this encounter Progress Notes * Jody Ruiz ANP - 01/06/2020 2:46 PM CDT DATE: 01/06/2020 PATIENT: Lindsay Pedersen : 1955 PCP: Bao Lyons, DO Chief Complaint Patient presents with ??? Follow Up 6 month f/u w/labs HISTORY OF PRESENT ILLNESS Ms. Pedersen returns for continued follow-up of multifactorial chronic anemia related to iron deficiency and chronic kidney disease, and reactive leukocytosis. She was last seen 6 months ago. Since that time, she has felt fairly well. She is currently being treated for UTI (odor, dark color, bladder pressure). She has not taken oral iron consistently given intolerance, primarily constipation. We previously recommended taking with FiberCon, which did not significantly improve her constipation. She otherwise denies fevers or chills, other infections, shortness of breath, chest pain, dizziness or lightheadedness, or unintentional weight loss. She has been working from home since May due to [employer] recently returned in-person once a week. CURRENT MEDICATIONS Current Outpatient Medications: ??? flu vaccine quadrivalent (6 mo+)(PF)(FLUARIX QUAD,FLULAVAL QUAD,FLUZONE QUAD)60 mcg/0.5mL IM syringe, PHARMACIST ADMINISTERED IMMUNIZATION ADMINISTERED AT TIME OF DISPENSING, Disp: , Rfl: ??? metFORMIN (GLUCOPHAGE) 500 mg tablet, TK 1 T PO QHS, Disp: , Rfl: ??? flu vaccine quadrivalent 2017- (36 mo+)(PF)(FLUZONE QUAD) 60 mcg/0.5 mL IM syringe, PHARMACIST ADMINISTERED IMMUNIZATION ADMINISTERED AT TIME OF DISPENSING, Disp: , Rfl: ??? amLODIPine (NORVASC) 10 mg tablet, Take 10 mg by mouth., Disp: , Rfl: ??? atorvastatin (LIPITOR) 10 mg tablet, TK 1 T PO D, Disp: , Rfl: ??? losartan (COZAAR) 100 mg tablet, TAKE 1 TABLET BY MOUTH ONCE DAILY, Disp: , Rfl: 3 ??? hydroCHLOROthiazide (MICROZIDE) 12.5 mg capsule, TAKE 1 CAPSULE BY MOUTH ONCE DAILY, Disp: , Rfl: 1 ??? ONGLYZA 2.5 mg tablet, TAKE 1 TABLET BY MOUTH ONCE DAILY, Disp: , Rfl: 2 ALLERGIES No Known Allergies TOBACCO COUNSELING She is not a tobacco user. REVIEW OF SYSTEMS Review of Systems Constitutional: Negative for chills, fever, malaise/fatigue and weight loss. HENT: Negative for ear pain, nosebleeds and sore throat. Eyes: Negative for blurred vision, pain and redness. Respiratory: Negative for cough and shortness of breath. Cardiovascular: Negative for chest pain and leg swelling. Gastrointestinal: Positive for constipation (with iron). Negative for abdominal pain, blood in stool, diarrhea, melena, nausea and vomiting. Genitourinary: UTI symptoms resolving on antibiotics x 5 days. Musculoskeletal: Positive for joint pain. Negative for back pain and falls. Skin: Negative for itching and rash. Neurological: Negative for dizziness, weakness and headaches. Endo/Heme/Allergies: Does not bruise/bleed easily. PHYSICAL EXAMINATION BP (!) 141/83 (BP Location: Right arm, Patient Position (BP): Sitting, BP Cuff Size: Adult) Comment: 144/83 hr 88 Pulse 88 Temp 98.5 ??F (36.9 ??C) (Oral) Ht 5' 1 (1.549 m) Wt 98.4 kg (216 lb 14.4 oz) LMP (Approximate) SpO2 95% No BMI 40.98 kg/m?? Physical Exam Vitals signs reviewed. Constitutional: Appearance: Normal appearance. HENT: Head: Normocephalic. Mouth/Throat: Mouth: Mucous membranes are moist. Pharynx: Oropharynx is clear. Eyes: General: No scleral icterus. Extraocular Movements: Extraocular movements intact. Conjunctiva/sclera: Conjunctivae normal. Neck: Musculoskeletal: Neck supple. Cardiovascular: Rate and Rhythm: Normal rate and regular rhythm. Pulses: Normal pulses. Heart sounds: Normal heart sounds. Pulmonary: Effort: Pulmonary effort is normal. Breath sounds: Normal breath sounds. Abdominal: General: Bowel sounds are normal. Palpations: Abdomen is soft. There is no mass. Tenderness: There is no abdominal tenderness. Musculoskeletal: General: No swelling. Right lower leg: No edema. Left lower leg: No edema. Skin: General: Skin is warm and dry. Neurological: General: No focal deficit present. Mental Status: She is alert and oriented to person, place, and time. Psychiatric: Mood and Affect: Mood normal. Behavior: Behavior normal. DIAGNOSIS Encounter Diagnoses Code Name Primary? D64.9 Chronic anemia Yes ??? D72.829 Leukocytosis, unspecified type LABS 01/03/2020: WBC 11.4, hemoglobin 11.4, hematocrit 35.9, platelets 290,000, MCV 83.5. Iron 44, iron sat 12%, ferritin 145. 06/18/2019: WBC 11.6, hemoglobin 11.7, platelets 296,000, MCV 84. Creatinine 1.1. Iron 51, iron sat 16%, ferritin 159. ASSESSMENT 1. Multifactorial anemia. 64-year-old BF referred in September 2018 for further evaluation of anemia andleukocytosis. Work-up favored anemia related to CKD and mild iron deficiency. Her iron studies are down a bit with stable hemoglobin in the 11 range. She has only been taking oral iron once or twice a week related to constipation but also admits nonadherence. Recommended she add yogurt and vitamin C 500 mg daily with oral iron, starting at 3 times a week then titrating to daily if tolerated. Repeat CBC and iron studies in 3 months and will see her back in 6 months. 2. Reactive leukocytosis. Her WBC is relatively stable and down a bit compared to 6 months ago. Etiology favored arthritis and degenerative disc disease. ORDERS Orders Placed This Encounter ??? CBC WITH DIFFERENTIAL ??? FERRITIN ??? IRON, TIBC, AND PERCENT SATURATION ??? BASIC METABOLIC PANEL ??? CBC WITH DIFFERENTIAL ??? IRON, TIBC, AND PERCENT SATURATION ??? FERRITIN FOLLOW UP Return in about 6 months (around 07/06/2020). Jody Ruiz, [facility] 01/06/2020 [facility] ONCOLOGY AND HEMATOLOGY - TISHA [facility] [place] [address] documented in this encounter Plan of Treatment Scheduled Orders Name Type Priority Associated Diagnoses Orde r Schedule CBC WITH DIFFERENTIAL Lab Routine Chronic anemia Leukocytosis, unspecified type Expected: 07/06/2020, Expires: 01/05/2021 FERRITIN Lab Routine Chronic anemia Expected: 07/06/2020, Expires: 01/05/2021 IRON, TIBC, AND PERCENT SATURATION Lab Routine Chronic anemia Expected: 07/06/2020, Expires: 01/05/2021 BASIC METABOLIC PANEL Lab Routine Chronic anemia Expected: 07/06/2020, Expires: 01/05/2021 CBC WITH DIFFERENTIAL Lab Routine Chronic anemia Expected: 04/07/2020, Expires: 01/05/2021 IRON, TIBC, AND PERCENT SATURATION Lab Routine Chronic anemia Expected: 04/07/2020, Expires: 01/05/2021 FERRITIN Lab Routine Chronic anemia Expected: 04/07/2020, Expires: 01/05/2021 documented as of this encounter Visit Diagnoses Diagnosis Chronic anemia- Primary Anemia, unspecified Leukocytosis, unspecified type documented in this encounter Care Teams Wood Gang Sawyer Relationship Specialty Start Date End Date Bao Lyons DO [address] [address] PCP - General Internal Medicine 09/21/18 documented as of this encounter
--- OUTSIDE RECORDS SUMMARY | 2024-03-23 01:58 | XMS_ITS | Encounter Summary ---
Author Organization [facility] [employer] [facility] Address [address] [place] [address] Care Team Providers Care Glass Scullion Name Role Phone Bao Lyons Dario Primary Care Provider Encounter Details Date Type Department Care Team (Late st Contact Info) Description 06/16/2019 Orders Only [facility] Oncology and Hematology - Kei [address] [facility] [address] [place] [address] Wilfred Choudhury MD [address] [facility] [address] [place] [address] Chronic anemia Social History Tobacco Use Types [...] 2019 Chronic anemia CBC WITH DIFFERENTIAL Routine 06/17/2019 Chronic anemia documented in this encounter Results * CBC WITH DIFFERENTIAL (06/17/2019) Blood Wilfred Choudhury MD HEMATOLOGY ORDERABLE S [facility] * IRON, TIBC, AND PERCENT SATURATION (06/17/2019) Blood Wilfred Choudhury MD CHEMISTRY ORDERABLES Performing Organization Address City/[facility]/ZIP Co de Phone Number [facility] documented in this encounter Visit Diagnoses Diagnosis Chronic anemia Anemia, unspecified documented in this encounter Care Teams Glass Scullion Relationship Specialty Start Date End Date Bao Lyons DO [address] [facility] [address] [place] [address] PCP - General Internal Medicine 09/21/18 documented as of this encounter
--- OUTSIDE RECORDS SUMMARY | 2024-03-23 01:58 | XMS_ITS | Encounter Summary ---
Author Organization [facility] Address [address] Aparicio: [place] [address] Care Team Providers Care Zyglo Inspector Name Role Phone Bao Lyons DO Primary Care Provider Encounter Details Date Type Department Care Team (Late st Contact Info) Description 08/07/2021 Orders Only Initial Department [address] APARICIO: [place] [address] Provider, Historical Chronic anemia Social History Tobacco Use Types [...] Comments IRON, TIBC, AND PERCENT SATURATION Routine 08/07/2021 1:01 PM CDT CBC WITH DIFFERENTIAL Routine 08/07/2021 1:01 PM CDT FERRITIN Routine 08/07/2021 1:01 PM CDT Chronic anemia BASIC METABOLIC PANEL Routine 08/07/2021 1:01 PM CDT documented in this encounter Results * FERRITIN (08/07/2021 1:01 PM CDT) FERRITIN 200 16 - 288 ng/mL [facility] Comment: Test Performed at: [facility] ??[phone] Steven Moon D.O., MPH Blood 08/07/2021 1:01 PM CDT 08/07/2021 1:01 PM CDT Wilfred Choudhury MD CHEMISTRY ORDERABLES Performing Organization Address [facility] Co de Phone Number [facility] [phone] * (ABNORMAL) IRON, TIBC, AND PERCENT SATURATION (08/07/2021 1:01 PM CDT) Pathologist [facility] IRON 41(L) 45 - 160 mcg/dL [facility] TIBC 316 250 - 450 mcg/dL (calc) [facility] IRON % SATURATION 13(L) 16 - 45 % (calc) [facility] Comment: Test Performed at: [facility] ??[phone] Steven Moon D.O., MPH 08/07/2021 1:01 PM CDT 08/07/2021 1:01 PM CDT Wilfred Choudhury MD CHEMISTRY ORDERABLES Performing Organization Address [facility] Co de Phone Number [facility] [phone] * (ABNORMAL) BASIC METABOLIC PANEL (08/07/2021 1:01 PM CDT) GLUCOSE 149(H) 65 - 99 mg/dL [facility] Comment: ? Fasting reference interval For someone without known diabetes, a glucose value >125 mg/dL indicates that they may have diabetes and this should be confirmed with a follow-up test. BUN 17 7 - 25 mg/dL [facility] CREATININE 1.28(H) 0.50 - 0.99 mg/dL [facility] Comment: For patients >49 years of age, the reference limit for Creatinine is approximately 13% higher for people identified as -Cymraes. GFR 44(L) > OR = 60 mL/min/1. 73m2 [facility] GFR, 51(L) > OR = 60 mL/min/1. 73m2 [facility] BUN/CREAT RATIO 13 6 - 22 (calc) [facility] SODIUM 137 135 - 146 mmol/L [facility] POTASSIUM 3.8 3.5 - 5.3 mmol/L [facility] CHLORIDE 98 98 - 110 mmol/L [facility] CO2 28 20 - 32 mmol/L [facility] CALCIUM 9.3 8.6 - 10.4 mg/dL [facility] Comment: Test Performed at: [facility] [address] [place], [place] ??[phone] Steven Moon D.O., MPH 08/07/2021 1:01 PM CDT 08/07/2021 1:01 PM CDT Wilfred Choudhury MD CHEMISTRY ORDERABLES [facility] [phone] * (ABNORMAL) CBC WITH DIFFERENTIAL (08/07/2021 1:01 PM CDT) WBC 11.1(H) 3.8 - 10.8 Thousand/u L [facility] RBC 4.29 3.80 - 5.10 Million/uL [facility] HEMOGLOBIN 11.3(L) 11.7 - 15.5 g/dL [facility] HEMATOCRIT 35.4 35.0 - 45.0 % [facility] MCV 82.5 80.0 - 100.0 fL [facility] MCH 26.3(L) 27.0 - 33.0 pg [facility] MCHC 31.9(L) 32.0 - 36.0 g/dL [facility] RDW 15.5(H) 11.0 - 15.0 % [facility] PLATELETS 345 140 - 400 Thousand/u L [facility] MPV 11.3 7.5 - 12.5 fL [facility] NEUTROPHIL ABSOLUTE 5,728 1,500 - 7,800 cells/uL [facility] LYMPHOCYTE ABSOLUTE 4,629(H) 850 - 3,900 cells/uL [facility] MONOCYTE ABSOLUTE 555 200 - 950 cells/uL [facility] EOSINOPHIL ABSOLUTE 133 15 - 500 cells/uL [facility] BASOPHILS ABSOLUTE 56 0 - 200 cells/uL [facility] NEUTROPHIL 51.6 % [facility] LYMPHOCYTES 41.7 % [facility] MONOCYTE 5.0 % [facility] EOSINOPHILS 1.2 % [facility] BASOPHILS 0.5 % [facility] Comment: Test Performed at: [facility] [address] [place], [place] ??[phone] Steven Moon D.O., MPH 08/07/2021 1:01 PM CDT 08/07/2021 1:01 PM CDT Wilfred Choudhury MD HEMATOLOGY ORDERABLE S [facility] [phone] documented in this encounter Visit Diagnoses Diagnosis Chronic anemia Anemia, unspecified documented in this encounter Care Teams Zyglo Inspector Relationship Specialty Start Date End Date Bao Lyons DO [address] [facility] [address] [place] [address] PCP - General Internal Medicine 09/21/18 documented as of this encounter
--- OUTSIDE RECORDS SUMMARY | 2024-03-23 01:58 | XMS_ITS | Encounter Summary ---
Author Organization [facility] Address [address], [place] [address] Phone Care Team Providers Care Pinion And Wheel Truer Name Role Phone Danielasukhwinder Bao Primary Care Provider [phone] Encounter Details Date Type Department Care Team (Late st Contact Info) Description 10/26/2018 8:30 AM CDT Office Visit [facility] Nephrology and Hypertension [address] [place] [address], [address] [place] [address] Darian Cramer MD [address], [address] [place] [address] Hypertension (Primary Dx); Persistent proteinuria; Chronic kidney disease stage 3 (CMS-HCC) Social History Tobacco Use Types Packs/Day Years [...] Sign Reading Time Taken Comments Blood Pressure 124/69 10/26/2018 8:41 AM CDT Pulse 84 10/26/2018 8:41 AM CDT Temperature 36.3 ??C (97.3 ??F) 10/26/2018 8:41 AM CD T Respiratory Rate - - Oxygen Saturation - - Inhaled Oxygen Concentration - - Weight 97.5 kg (215 lb) 10/26/2018 8:41 AM CDT Height 160 cm (5' 3 ) 10/26/2018 8:41 AM CDT Body Mass Index 38.09 10/26/2018 8:41 AM CDT documented in this encounter Progress Notes * Darian Cramer MD - 10/26/2018 8:30 AM CDT Lindsay Pedersen is a pleasant 63 y.o.female. Blanca is a very pleasant lady who has an elevated creatinine. She [facility] found to [facility] He sent her for a hematologic evaluation to Dr. Choudhury. Dr. Choudhury evaluated her and found her to have an elevated creatinine so she was sent to this office for further evaluation. This is the first time that she is heard about an elevated creatinine that she remembers. At the time of the visit the patient was feeling fine. There was no nausea, vomiting, diarrhea, fevers, chills, or other flu like illnesses. The patient has had no bloody urine, foamy urine, kidney stones, painful urination, or bladder infections. The patient is not taking any new medications or new over the counter meds. No NSAIDs reported. Patient has diabetes. This is been going on for two years. She has had good control. She does not have retinopathy. She used to be on Metforian but this was discontinued because of nausea and is now on onglyza. The patient has had hypertension for 30 to 35 years. Her blood pressure has always been under pretty good control. She???s never had a stroke or a heart attack. Patient had scarlet fever when she was [age]. She was told that it affected her kidneys and that she has been spilling protein ever since that. Past history: scarlet fever, hypertension, diabetes, elevated creatinine. Social history: Non smoker nondrinker Allergies: nkda ROS Constitutional: Negative except as above Neuro: Negative except as above ENT: Negative except as above Endocrine: Negative except as above Psychiatric: Negative except as above Pulmonary: Negative except as above Cardiac: Negative except as above Abdomen: Negative except as above Urologic: Negative except as above Skin: Negative except as above Rheumatologic: Negative except as above BP 124/69 Pulse 84 Temp 97.3 ??F (36.3 ??C) Ht 5' 3 (1.6 m) Wt 215 lb (97.5 kg) BMI 38.09 kg/m?? BSA 2.08 m?? WDWN female in NAD Skin No rash Head NCAT Mouth Normal Lips, Gums, and Teeth Neck No nodes, No TMG Back No CVAT Lungs Clear to Auscultation and Percussion Cor: RRR no rub or gallop Abd BS+ nontender and soft. No HSM no masses no bruits Ext No edema, cyanosis, or clubbing Pulses normal radial and dorsalis pedis Psyche normal not depressed or anxious Neuro A+Ox3 Motor 5/ all groups Cr Ns 2-12 intact Cb normal CLEMENT Recent Labs: 05/02/18 Cr 1.23, gfr 47 09/05/18 Cr 1.43, gfr 39, LDL 90, HDL 39, Trig 44, a1c 7.5 09/15/18 SPE neg, UPE neg, vit d 43 No results found for: EGFR, CREATININE, CREATININEUR, CHOL, LDL, HDL, TRIG, GLUCOSE, PTH, HCT, BUN,NA, K, CL, CO2, ALBUMIN, CA Impression: Lindsay has an elevated creatinine. The patient has hypertension for more than three decades. So she is likely to have some effect of high blood pressure on her kidneys. The patient has diabetes. She has only had this for two years. However there are some who have somekidney involvement at the onset of their type two diabetes. Patient had scarlet fever and seems to remember having some issues with her kidneys back then. 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 There are other things that cause kidney disease as well, including glomerulonephritis, interstitial nephritis, obstruction, infiltration, stone disease, or cystic disease. These are unlikely becausethe patient has no sign or symptoms of any of these. To evaluate this I am going to get a renal panel, urinalysis, urine protein to creatinine ratio, DONELL, ESR, complements, serum and urine immunofixation, kappa lambda ratio, and a renal ultrasound. We discussed ways to preserve renal function. We discussed the potential benefits of LAURA inhibitors and ARBs. The systolic blood pressure should be less than 140. The LDL cholesterol should be less than 100. We will check a PTH and vitamin D level to be sure these are in line. We discussed that the patient should stay off large amounts of protein in the diet. Try to stick toabout 7 ounces of chicken, fish, beef or pork per day. The patient should avoid nonsteroidal antiinflammatory agents. The patients BMI is too high. Try to lose weight. Consider seeing a liner assembler or PCP for help. The patient should stay well hydrated. The sugars should be well controlled The patient has had the pneumovax and the flu shot. The patient will work on the diet and get the testing done. Followup in a few weeks for further evaluation. Assessment/Plan Diagnoses and all orders for this visit: Hypertension Persistent proteinuria Chronic kidney disease stage 3 - Antinuclear Antibodies (DONELL), IFA w/ Refl Titer and Pattern; Future - Complement C3 + C4; Future - Complement Total (CH50); Future - Poipu and Lambda Free Light Chains, Qn, Serum; [...] D, 25-Hydroxy, LC/MS/MS Body mass index is 38.09 kg/m??. Follow up plan to address BMI is too high see above. documented in this encounter Plan of Treatment Scheduled Orders Name Type Priority Associated Diagnoses Orde r Schedule Vitamin D, 25-Hydroxy, Serum Lab Routine Chronic kidney disease stage 3 (CMS-HCC) 1 Occurrences starting 10/26/2018 until 10/27/2019 documented as of this encounter Procedures Procedure Name Priority Date/Time Associated Diagnosis Comments VITAMIN D, 25-OH, TOTAL,IA Routine 10/26/2018 8:13 AM CDT KAPPA/LAMBDA FREE LIGHT CHAINS, QN, SERUM Routine 10/26/2018 8:13 AM CDT Chronic kidney disease stage 3 (CMS-HCC) VITAMIN D, 25-HYDROXY, LC/MS/MS Routine 10/26/2018 8:13 AM CDT TOTAL PROTEIN W/ CREATININE, URINE, RANDOM Routine 10/26/2018 8:13 AM CDT Chronic kidney disease stage 3 (CMS-HCC) RENAL FUNCTION PANEL (RFP) Routine 10/26/2018 8:13 AM CDT Chronic kidney disease stage 3 (CMS-HCC) URINALYSIS W/ REFLEX TO MICROSCOPIC Routine 10/26/2018 8:13 AM CDT Chronic kidney disease stage 3 (CMS-HCC) COMPLEMENT C3 + C4 Routine 10/26/2018 8: 13 AM CDT Chronic kidney disease stage 3 (CMS-HCC) ERYTHROCYTE SEDIMENTATION RATE (ESR) Routine 10/26/2018 8:13 AM CDT Chronic kidney disease stage 3 (CMS-HCC) COMPLEMENT TOTAL (CH50) Routine 10/26/2018 8:13 AM CDT Chronic kidney disease stage 3 (CMS-HCC) ANTINUCLEAR ANTIBODIES (DONELL), IFA W/ REFL TITER AND PATTERN Routine 10/26/2018 8:13 AM CDT Chronic kidney disease stage 3 (CMS-HCC) PTH INTACT W/O CALCIUM, SERUM Routine 10/26/2018 8:13 AM CDT Chronic kidney disease stage 3 (CMS-HCC) documented in this encounter Results * Vitamin D, 25-Hydroxy, LC/MS/MS (10/26/2018 8:13 AM CDT) Calcidiol, Serum/Plasma 30 30 - 100 ng/mL [facility] ([facility]) Comment: Vitamin D Status ? 25-OH Vitamin D: Deficiency: ?<20 ng/mL Insufficiency: ? 20 - 29 ng/mL Optimal: ? > or = 30 ng/mL For 25-OH Vitamin D testing on patients on D2-supplementation and patients for whom quantitation of D2 and D3 fractions is required, the [facility]() 25-OH VIT D, (D2,D3), LC/MS/MS is recommended: order code 52900 (patients >2yrs). For more information on this test, go to: http://5 examples.Merchantry/faq/JPY101 (This link is being provided for informational/educational purposes only.) 10/26/2018 8:13 AM CDT 10/26/2018 8:16 AM CDT Narrative [facility] ([facility]) - 10/28/2018 11:35 AM CDT FASTING:YES FASTING: YES Resulting Agency Comment Performing Organization Information: ?Site ID: [place] ?Name: [facility] ?Address: [address] [place], [place] [address]ner [facility] [place] [address] ?Director: Steven Moon D.O., MPH Darian Cramer MD LAB BLOOD ORDERABLES [facility] ([facility]) * Vitamin d, 25-Oh, Total,Ia (10/26/2018 8:13 AM CDT) Calcidiol, Serum/Plasma 30 30 - 100 ng/mL [facility] ([facility]) Comment: Vitamin D Status ? 25-OH Vitamin D: Deficiency: ?<20 ng/mL Insufficiency: ? 20 - 29 ng/mL Optimal: ? > or = 30 ng/mL For 25-OH Vitamin D testing on patients on D2-supplementation and patients for whom quantitation of D2 and D3 fractions is required, the [facility]() 25-OH VIT D, (D2,D3), LC/MS/MS is recommended: order code 24141 (patients >2yrs). For more information on this test, go to: http://5 examples.Merchantry/faq/LVJ778 (This link is being provided for informational/educational purposes only.) 10/26/2018 8:13 AM CDT 10/26/2018 8:16 AM CDT N[facility]ative [facility] ([facility]) - 10/27/2018 9:55 AM CDT FASTING:YES FASTING: YES Resulting Agency Comment Performing Organization Information: ?Site ID: [place] ?Name: [facility] ?Address: Formerly named [facility] [place] [address] ?Director: Steven Moon D.O., MPH Darian Cramer MD LAB BLOOD ORDERABLES [facility] ([facility]) * Urinalysis w/ Reflex to Microscopic (10/26/2018 8:13 AM CDT) Color of Urine YELLOW YELLOW [facility] ([facility]) Appearance of Urine CLEAR CLEAR [facility] ([facility]) Specific gravity of Urine 1.011 1.001 - 1.035 [facility] ([facility]) pH of Urine 7.0 5.0 - 8.[address] [facility] ([facility]) Glucose, Urine NEGATIVE NEGATIVE [facility] ([facility]) Bilirubin, total, Urine NEGATIVE NEGATIVE [facility] ([facility]) Ketones, Urine NEGATIVE NEGATIVE [facility] ([facility]) Hemoglobin, Urine NEGATIVE NEGATIVE [facility]) Protein, Urine NEGATIVE NEGATIVE [facility] ([facility]) Nitrite, Urine NEGATIVE NEGATIVE [facility] ([facility]) Leukocyte esterase, Urine NEGATIVE NEGATIVE [facility]) Leukocytes, Urine sediment CANCELED < OR = 5 /HPF [facility] ([facility]) Comment:Result canceled by t he ancillary. Erythrocytes, Urine sediment CANCELED < OR = 2 /HPF [facility]) Comment:Result canceled by t he ancillary. Epithelial cells, squamous, Urine sediment CANCELED < OR = 5 /HPF [facility] ([facility]) Comment:Result canceled by t he ancillary. Transitional cells, Urine sediment CANCELED < OR = 5 /HPF [facility]) Comment:Result canceled by t he ancillary. Epithelial cells, renal, Urine sediment CANCELED < OR = 3 /HPF [facility] ([facility]) Comment:Result canceled by t he ancillary. Bacteria, Urine sediment CANCELED NONE SEEN /HPF [facility] ([facility]) Comment:Result canceled by t he ancillary. Calcium oxalate crystals, Urine sediment CANCELED NONE OR FEW /HPF [facility] ([facility]) Comment:Result canceled by t he ancillary. Triple phosphate crystals, Urine sediment CANCELED NONE OR FEW /HPF [facility]) Comment:Result canceled by t he ancillary. Urate crystals, Urine sediment CANCELED NONE OR FEW /HPF [facility]) Comment:Result canceled by t he ancillary. Amorphous sediment, Urine sediment CANCELED NONE OR FEW /HPF [facility]) Comment:Result canceled by t he ancillary. Crystals, Urine sediment CANCELED NONE SEEN /HPF [facility]) Comment:Result canceled by t he ancillary. Hyaline casts, Urine sediment CANCELED NONE SEEN /LPF [facility]) Comment:Result canceled by t he ancillary. Granular casts, Urine sediment CANCELED NONE SEEN /LPF [facility]) Comment:Result canceled by t he ancillary. Casts, Urine sediment CANCELED NONE SEEN /LPF [facility] ([facility]) Comment:Result canceled by t he ancillary. Yeast, Urine sediment CANCELED NONE SEEN /HPF [facility]) Comment:Result canceled by t he ancillary. Service comment [facility]) Comment:Result canceled by t he ancillary. Urine 10/26/2018 8:13 AM CDT 10/26/2018 8:16 AM CDT Narrative [facility] ([facility]) - 10/28/2018 11:35 AM CDT FASTING:YES FASTING: YES Resulting Agency Comment Performing Organization Information: ?Site ID: [place] ?Name: [facility] ?Address: Formerly named [facility] [place] [address] ?Director: Steven Moon D.O., MPH Darian Cramer MD LAB URINE ORDERABLES Performing Organization Address [facility] Co de Phone Number [facility]) * Total Protein w/ Creatinine, Urine, Random (10/26/2018 8:13 AM CDT) Creatinine, Urine 128 20 - 275 mg/dL [facility] ([facility]) Protein/Creatin ine, Urine 109 21 - 161 mg/g creat [facility]) Protein, Urine 14 5 - 24 mg/dL [facility] ([facility]) 10/26/2018 8:13 AM CDT 10/26/2018 8:16 AM CDT Narrative [facility] ([facility]) - 10/28/2018 11:35 AM CDT FASTING:YES FASTING: YES Resulting Agency Comment Performing Organization Information: ?Site ID: [place] ?Name: [facility] ?Address: Formerly named [facility] [place] [address] ?Director: Steven Moon D.O., MPH Darian Cramer MD LAB URINE ORDERABLES Performing Organization Address [facility] Co de Phone Number [facility] ([facility]) * (ABNORMAL) Erythrocyte Sedimentation Rate (ESR) (10/26/2018 8:13 AM CDT) Erythrocyte sedimentation rate (ESR) 66(H) < OR = 30 mm/h [facility] ([facility]) Blood 10/26/2018 8:13 AM CDT 10/26/2018 8:16 AM CDT Narrative [facility] ([facility]) - 10/28/2018 11:35 AM CDT FASTING:YES FASTING: YES Resulting Agency Comment Performing Organization Information: ?Site ID: ?Name: [facility] ?Address: Formerly [facility] [place] [address] ?Director: Bebo Kessler Darian Cramer MD LAB BLOOD ORDERABLES [facility] ([facility]) * (ABNORMAL) Renal Function Panel (RFP) (10/26/2018 8:13 AM CDT) Glucose, Serum/Plasma 119(H) 65 - 99 mg/dL [facility] ([facility]) Comment: ? Fasting reference interval For someone without known diabetes, a glucose value between 100 and 125 mg/dL is consistent with prediabetes and should be confirmed with a follow-up test. Urea nitrogen, Serum/Plasma (BUN) 17 7 - 25 mg/dL [facility] ([facility]) Creatinine, Serum/Plasma 1.50(H) 0.50 - 0.99 mg/dL [facility] ([facility]) Comment: For patients >49 years of age, the reference limit for Creatinine is approximately 13% higher for people identified as -Estonian. eGFR, non 37(L) > OR = 60 mL/min/1. 73m2 [facility] ([facility]) eGFR, 43(L) > OR = 60 mL/min/1. 73m2 [facility] ([facility]) Urea nitrogen/Creatinin e, Serum/Plasma 11 6 - 22 (calc) [facility] ([facility]) Sodium, Serum/Plasma 135 135 - 146 mmol/L [facility] ([facility]) Potassium, Serum/Plasma 4.1 3.5 - 5.3 mmol/L [facility]) Chloride, Serum/Plasma 98 98 - 110 mmol/L [facility] ([facility]) Carbon dioxide CO2), total, Serum/Plasma 26 20 - 32 mmol/L [facility] ([facility]) Calcium, Serum/Plasma 9.9 8.6 - 10.4 mg/dL [facility] ([facility]) Phosphate, Serum/Plasma 4.1 2.5 - 4.5 mg/dL [facility] ([facility]) Albumin, Serum/Plasma 4.1 3.6 - 5.1 g/dL [facility] ([facility]) Blood 10/26/2018 8:13 AM CDT 10/26/2018 8:16 AM CDT Narrative [facility] ([facility]) - 10/28/2018 11:35 AM CDT FASTING:YES FASTING: YES Resulting Agency Comment Performing Organization Information: ?Site ID: [place] ?Name: [facility] ?Address: Formerly named [facility] [place] [address] ?Director: Steven Moon D.O., MPH Darian Cramer MD LAB BLOOD ORDERABLES [facility]) * PTH Intact w/o Calcium, Serum (10/26/2018 8:13 AM CDT) PTH, Intact, Serum/Plasma 59 14 - 64 pg/mL [facility] ([facility]) Comment: Interpretive Guide ?Intact PTH ? Calcium ? ------- Normal Parathyroid ?Normal ? Normal Hypoparathyroidism ?Low or Low Normal ?Low Hyperparathyroidism ?? Primary ?Normal or High ? High ?? Secondary ?High ? Normal or Low ?? Tertiary ? High ? High Non-Parathyroid ?? Hypercalcemia ?Low or Low Normal ?High Blood 10/26/2018 8:13 AM CDT 10/26/2018 8:16 AM CDT Narrative [facility] ([facility]) - 10/28/2018 11:35 AM CDT FASTING:YES FASTING: YES Resulting Agency Comment Performing Organization Information: ?Site ID: [place] ?Name: [facility] ?Address: [address] [facility] [place] [address] ?Director: Steven Moon D.O., MPH Darian Cramer MD LAB BLOOD ORDERABLES [facility] ([facility]) * (ABNORMAL) Poipu and Lambda Free Light Chains, Qn, Serum (10/26/2018 8:13 AM CDT) Poipu light chains, free, Serum 63.8(H) 3.3 - 19.4 mg/L [facility] ([facility]) Lambda light chains, free, Serum/Plasma 29.5(H) 5.7 - 26.3 mg/L [facility]) Poipu light chains, free/Lambda light chains, free, Serum 2.16(H) 0.26 - 1.[address] [facility] ([facility]) Comment: Free kappa/lambda ratio in serum of normal individuals is 0.26-1.65. Excess production of free kappa or lambda chains can alter this ratio. Monoclonal free light chains are found in serum of patients with multiple myeloma, Waldenstrom's macroglobulinemia, mu-heavy chain disease, primary amyloidosis, light chain deposition disease, monoclonal gammopathy of undetermined significance, and lymphoproliferative disorders. Measurement of free light chain concentration in serum is useful for diagnosis, prognosis, monitoring disease activity and following response to therapy of these disorders. 10/26/2018 8:13 AM CDT 10/26/2018 8:16 AM CDT Narrative [facility] ([facility]) - 10/28/2018 11:35 AM CDT FASTING:YES FASTING: YES Resulting Agency Comment Performing Organization Information: ?Site ID: IN ?Name: [facility] ?Address: [address] [place] [address] [place] [address] ?Director: Steven Moon D.O., MPH Darian Cramer MD LAB BLOOD ORDERABLES Performing Organization Address [facility] de Phone Number [facility] ([facility]) * (ABNORMAL) Complement Total (CH50) (10/26/2018 8:13 AM CDT) Complement total hemolytic CH50, Serum/Plasma >60(H) 31 - 60 U/mL [facility] ([facility]) Blood 10/26/2018 8:13 AM CDT 10/26/2018 8:16 AM CDT Narrative [facility] ([facility]) - 10/28/2018 11:35 AM CDT FASTING:YES FASTING: YES Resulting Agency Comment Performing Organization Information: ?Site ID: [place] ?Name: [facility] ?Address: Formerly named [facility] [place] [address] ?Director: Steven Moon D.O. MPH Darian Cramer MD LAB BLOOD ORDERABLES Performing Organization Address [facility] de Phone Number [facility]) * (ABNORMAL) Complement C3 + C4 (10/26/2018 8:13 AM CDT) Complement C3, Serum/Plasma 213(H) 83 - 193 mg/dL [facility]) Complement C4, Serum/Plasma 40 15 - 57 mg/dL [facility]) Blood 10/26/2018 8:13 AM CDT 10/26/2018 8:16 AM CDT Narrative [facility] ([facility]) - 10/28/2018 11:35 AM CDT FASTING:YES FASTING: YES Resulting Agency Comment Performing Organization Information: ?Site ID: [place] ?Name: [facility] ?Address: [address] [place] [id number] ?Director: Steven Moon D.O., MPH Darian Cramer MD LAB BLOOD ORDERABLES [facility]) * Antinuclear Antibodies (DONELL), IFA w/ Refl Titer and Pattern (10/26/2018 8:13 AM CDT) Pathologist [facility] DONELL, Serum NEGATIVE NEGATIVE [facility]. [facility]) Comment: DONELL IFA is a first line screen for detecting the presence of up to approximately 150 autoantibodies in various autoimmune diseases. A negative DONELL IFA result suggests DONELL-associated autoimmune diseases are not present at this time. Visit Physician FAQs for interpretation of all antibodies in the Equality, prevalence, and association with diseases at http://education.[employer]/ faq/GHD372 ?? Blood 10/26/2018 8:13 AM CDT 10/26/2018 8:16 AM CDT Narrative [facility]) - 10/28/2018 11:35 AM CDT FASTING:YES FASTING: YES Resulting Agency Comment Performing Organization Information: ?Site ID: [place] ?Name: [facility] ?Address: [address] [place] [address] ?Director: Steven Moon D.O., MPH Darian Cramer MD LAB BLOOD ORDERABLES [facility] ([facility]) documented in this encounter Visit Diagnoses Diagnosis Hypertension- Primary Persistent proteinuria Chronic kidney disease stage 3 (CMS-HCC) documented in this encounter Care Teams Pinion And Wheel Truer Relationship Specialty Start Date End Date Bao Lyons DO [address] [place] [id number] PCP - General Internal Medicine 09/17/18 documented as of this encounter
--- OUTSIDE RECORDS SUMMARY | 2024-03-23 01:58 | XMS_ITS | Clinical Summary ---
Author Organization [facility] Address [address] [place] [address] Care Team Providers Care Residential Caregiver Name Role Phone Bao Lyons DO Primary Care Provider Allergies No known active allergies Medications Medication Sig Dispensed Refills Start Date End Date Status amLODIPine (NORVASC) 10 mg tablet Take 10 mg by mouth. Ac tive atorvastatin (LIPITOR) 10 mg tablet TK 1 T PO D 03/12/2018 Active losartan (COZAAR) 100 mg tablet TAKE 1 TABLET BY MOUTH ONCE DAILY 3 09/08/2018 Active hydroCHLOROthiazide (MICROZIDE) 12.5 mg capsule TAKE 1 CAPSULE BY MOUTH ONCE DAILY 1 10/17/2018 Active flu vaccine quadrivalent 2018- (36 mo+)(PF)(FLUZONE QUAD) 60 mcg/0.5 mL IM syringe PHARMACIST ADMINISTERED IMMUNIZATION ADMINISTERED AT TIME OF DISPENSING 12/19/2018 Active flu vaccine quadrivalent 2019- (6 mo+)(PF)(FLUARIX QUAD,FLULAVAL QUAD,FLUZONE QUAD)60 mcg/0.5 mL IM syringe PHARMACIST ADMINISTERED IMMUNIZATION ADMINISTERED AT TIME OF DISPENSING 12/19/2018 Active dulaglutide (TRULICITY SUBCUT) Inject by subcutaneous injection. Active Active Problems Problem Noted Date Diagnosed Date Diabetes mellitus 01/06/2020 Leukocytosis (leucocytosis) 11/03/2018 Chronic anemia 11/03/2018 Family History Medical History Relation Name Comments Diabetes Brother 1 Heart Disease Brother 1 Heart Disease Brother 2 Heart Disease Father Cancer Sister 1 Heart Disease Sister 1 Relation Name Status Comments Brother 1 Brother 2 Brother 3 Alive Father Mother Sister 1 Sister 2 Alive Social History Tobacco Use Types Packs/Day Years [...] Pulse 77 08/11/2020 9:15 AM CDT Temperature 36.9 ??C (98.5 ??F) 01/06/2020 1:00 PM CD T Respiratory Rate - - Oxygen Saturation 95% 08/11/2020 9:15 AM CDT Inhaled Oxygen Concentration - - Weight 100.1 kg (220 lb 11.2 oz) 08/11/2020 9:15 AM CDT Height 154.9 cm (5' 1 ) 08/11/2020 9:15 AM CDT Body Mass Index 41.7 08/11/2020 9:15 AM CDT Plan of Treatment Health Maintenance Due Date Last Done Comments PNEUMOCOCCAL VACCINE 65+ YEARS (1 of 2 - PCV) 01/18/19 63 DIABETES ANNUAL FOOT EXAM 01/18/1974 DIABETES ANNUAL RETINAL EXAM 01/18/1974 DIABETES MICROALBUMIN ANNUAL SCREEN 01/18/1974 LDL CHOLESTEROL ANNUAL 01/18/1974 DTAP/TDAP/TD VACCINES (1 - Tdap) 01/18/1975 BREAST CANCER SCREENING 1996 COLORECTAL SCREENING 01/18/2001 Colorectal Cancer Screening 01/18/2001 FIT-DNA Q 3 years 01/18/2001 FIT/FOBT Q 1 year 01/18/2001 Flex Sig/CT Colonography Q 5 years 01/18/2001 ZOSTER VACCINE (1 of 2) 01/18/2006 RSV VACCINE (60+ or ) (1 - Risk 60-74 years 1-dose series) 2016 OSTEOPOROSIS SCREENING 01/18/2021 DIABETES HBA1C Q 6 MONTHS 02/02/2021 08/02/2020 INFLUENZA VACCINE (#1) 2023 12/19/2018 Procedures Procedure Name Priority Date/Time Associated Diagnosis Comments HEMOGLOBIN A1C Routine 08/02/2020 from Last 3 Months or Most Recently Relevant to Health Maintenance Results * HEMOGLOBIN A1C (08/02/2020) Blood Abstract Provider CHEMISTRY ORDERABLES from Last 3 Months or Most Recently Relevant to Health Maintenance Care Teams Residential Caregiver Relationship Specialty Start Date End Date Bao Lyons DO [address] [address] PCP - General Internal Medicine 09/21/18
== END 2024-03-16 11:00 | disposition home or self-care (01) ==
PROVIDERS: Referring Provider Internal Medicine; Visit Provider Internal Medicine Gastroenterology
PROC: 0DJD8ZZ Inspection of Lower Intestinal Tract, Via Natural or Artificial Opening Endoscopic (ICD-10-PCS; CPT 45378; principal; 2024-03-16 11:00)
DX: Z12.11 Encounter for screening for malignant neoplasm of colon (principal); K64.8 Other hemorrhoids; K57.30 Diverticulosis of large intestine without perforation or abscess without bleeding; E78.5 Hyperlipidemia, unspecified; I10 Essential (primary) hypertension; D64.9 Anemia, unspecified; E11.29 Type 2 diabetes mellitus with other diabetic kidney complication; G47.33 Obstructive sleep apnea (adult) (pediatric); D50.9 Iron deficiency anemia, unspecified; E55.9 Vitamin D deficiency, unspecified; D72.829 Elevated white blood cell count, unspecified; E66.9 Obesity, unspecified; Z68.37 Body mass index [BMI] 37.0-37.9, adult; Z79.84 Long term (current) use of oral hypoglycemic drugs; Z79.85 Long-term (current) use of injectable non-insulin antidiabetic drugs; Z98.890 Other specified postprocedural states; Z86.79 Personal history of other diseases of the circulatory system; Z82.49 Family history of ischemic heart disease and other diseases of the circulatory system
CPT/HCPCS: G0121; 82948; J2704; J7120

== ENCOUNTER 2024-07-15 09:36 | Observation (INO) | payer MEDICARE, MEDICAID, SELFPAY ==
[2024-07-15] VITALS (15 sets, daily range): BP systolic 150–166; BP diastolic 87–105; PULSE 83–110; RESP 14–28; TEMP 36.1–36.7; O2SAT 93–100; BMI 37.8
--- NOTE | ~2024-07-15 | XR_ITS ---
XR chest 1V portable Ordering provider: Francois Clemons MD History: 69 years Female with . SOB . Comparison: April 21, 2023 FINDINGS: MEDIASTINUM: The cardiac silhouette is moderately enlarged. Congestive nicole. LUNGS: No pneumothorax. Opacification in the right lung base suggestive of atelectasis versus pneumon ia with possible effusion. Bilateral interstitial thickening suggestive of pulmonary edema. OTHER: No free air under the diaphragm. IMPRESSION: Cardiomegaly with cardiac decompensation and pulmonary edema. Right basilar atelectasis versus pneumonia with possible effusion. Reviewed, dictated and finalized at location A.
--- NOTE | ~2024-07-15 | US_ITS ---
EXAMINATION: US venous doppler [facility] DATE: 07/16/2024 10:41 INDICATION: Edema TECHNIQUE: Grayscale ultrasound images without and with compression and Doppler ultrasound images of the bilateral lower extremity veins were obtained. COMPARISON: None. FINDINGS: The visualized portions of right common femoral vein, profunda (deep) femoral vein, femoral vein, pop liteal vein, peroneal veins, posterior tibial veins, and greater saphenous vein outflow are patent. The visualized portions of left common femoral vein, profunda femoral vein, femoral vein, popliteal v ein, peroneal veins, posterior tibial veins, and greater saphenous vein outflow are patent. IMPRESSION: 1. No deep venous thrombosis. Reviewed, dictated and finalized at location A.
--- NOTE | 2024-07-15 09:41 | ECG_ITS ---
Test Date: 2024-07-15 09:50:55 Measurements Intervals [place] Rate: 103 P: 16 VA: 128 QRS: -17 QRSD: 106 T: 88 QT: 370 QTc: 486 Interpretive Statements SINUS TACHYCARDIA INCOMPLETE LEFT BUNDLE BRANCH BLOCK POSSIBLE ANTERIOR MYOCARDIAL INFARCTION , OF INDETERMINATE AGE CONSIDER INFERIOR INFARCT, AGE INDETERMINATE BORDERLINE ST-T WAVE ABNORMALITY- HIGH LATERAL LEADS BASELINE ARTIFACT- I, II, AVR ABNORMAL ECG No previous ECG available for comparison Electronically Signed On 07-15-2024 10:24:18 CDT by Yoandy Francisco D.O.
--- NOTE | 2024-07-15 09:57 | ED.SOB ---
HPI - SOB/Dyspnea General Chief Complaint: Shortness of Breath/Dyspnea Stated Complaint: ?pneumonia Time Seen by Provider: 07/15/24 09:40 Source: patient Mode of arrival: ambulatory Limitations: no limitations History of Present Illness HPI Narrative: 69 YEARS OLD FEMALE CAME FROM HOME BY PRIVATE CAR COMPLAINING OF SHORTNESS OF BREATH AND COUGHING FOR THE LAST 10 DAYS, WAS SEEN BY URGENT CARE 5 DAYS AGO, STARTED ON ANTIBIOTIC AND COUGH MEDICINE WITHOUT ANY IMPROVEMENT. SHE DENIES ANY FEVER OR CHILLS OR NAUSEA. PATIENT VOMITED SOMETIME WITH COUGHING. SHORTNESS OF BREATH AND COUGHING WORSE WHEN SHE LAY DOWN FLAT, NOTHING MAKE IT BETTER. HISTORY OF DIABETES HYPERTENSION HYPERLIPIDEMIA, DOES NOT SMOKE OR DRINK, DOES NOT TAKE ANTI-PLATELET OR ANTICOAGULANT MEDICATION Related Data Home Medications ?Medication ?Instructions ?Recorded ?Confirmed ?Last Taken ?Type calcitriol 0.25 mcg capsule 0.25 mcg PO DAILY 03/04/24 03/16/24 03/15/24 08:00 History dapagliflozin propanediol 10 mg 10 mg PO DAILY 03/04/24 03/16/24 03/15/24 08:00 History tablet (Farxiga) dulaglutide 1.5 mg/0.5 mL 1.5 mg subcut WEEKLY 03/04/24 03/16/24 03/06/24 History subcutaneous pen injector (Trulicity) ergocalciferol (vitamin D2) 1,250 50,000 unit PO WEEKLY 03/04/24 03/16/24 03/09/24 08:00 History mcg (50,000 unit) capsule linaclotide 72 mcg capsule 145 mcg PO DAILY 03/04/24 03/16/24 03/14/24 History (Linzess) Allergies Allergy/AdvReac Type Severity Reaction Status Date / Time shellfish derived Allergy Itching Verified 07/15/24 09:55 adhesive tape AdvReac Itching Verified 07/15/24 09:55 Review of Systems Review of Systems: All systems reviewed & are unremarkable except as noted in HPI and below PMFSH Past Medical History Medical History Colon cancer screening Hyperlipidemia ESTELA (obstructive sleep apnea) Mitral valve prolapse Iron deficiency anemia Vitamin D deficiency Leukocytosis Essential (primary) hypertension Anemia Diabetes mellitus with renal complications Surgical History Surgical History History of hysterectomy Family History Family History Mother Cerebrovascular accident Father Pneumonia Sibling Acute myocardial infarction Social History Social History Smoking status: Never smoker Smoking end date: 03/24/79 Alcohol intake: never Substance use type: does not use Living arrangements: alone Spiritual care concerns: No Exam Narrative: GENERAL APPEARANCE: WELL-DEVELOPED, WELL-NOURISHED SKIN: NORMAL COLOR HEAD: NORMOCEPHALIC, NONTRAUMATIC EYES: CLEAR CONJUNCTIVA ENT: OROPHARYNX NORMAL, EARS NORMAL, NOSE NORMAL NECK: SUPPLE, NONTENDER CHEST AND RESPIRATORY: AIRWAY PATENT, NO RESPIRATORY DISTRESS, NO ACCESSORY MUSCLE USE HEART: REGULAR RATE/RHYTHM ABDOMEN: SOFT, NONTENDER, NO ORGANOMEGALY, QUIET BOWEL SOUNDS VASCULAR: NORMAL PERIPHERAL PULSES, NORMAL CAPILLARY REFILL. MUSCULOSKELETAL: NORMAL RANGE OF MOTION, NONTENDER BACK NEUROLOGIC: ALERT AND ORIENTED ?3, DIGITAL ADVERTISING ANALYST IS NORMAL TESTED, NO GROSS MOTOR DEFICIT Course Vital Signs Vital signs: Vital Signs Temperature 36.7 C 07/15/24 09:42 Pulse Rate 109 H 07/15/24 09:42 Respiratory Rate 14 07/15/24 09:42 Blood Pressure 166/105 H 07/15/24 09:42 Pulse Oximetry 95 07/15/24 09:42 Oxygen Delivery Room Air 07/15/24 09:42 Temperature 36.7 C 07/15/24 09:42 Pulse Rate 83 07/15/24 10:39 Respiratory Rate 27 H 07/15/24 10:39 Blood Pressure 156/89 H 07/15/24 10:39 Pulse Oximetry 94 07/15/24 10:39 Oxygen Delivery Room Air 07/15/24 10:29 MDM - SOB/Dyspnea MDM Narrative Medical decision making narrative: PATIENT CAME WITH SHORTNESS OF BREATH AND COUGHING OVER 10 DAYS VITAL SIGNS SHOWING BLOOD PRESSURE 166/105, HEART RATE 109 OTHERWISE WITHIN NORMAL LIMIT PHYSICAL EXAMINATION SHOWING A PATIENT WITH INTERMITTENT COUGHING OTHERWISE INSIGNIFICANT DIFFERENTIAL DIAGNOSIS INCLUDE UPPER RESPIRATORY VIRAL INFECTION, SEASONAL ALLERGY, LESS LIKELY PNEUMONIA, CONGESTIVE HEART FAILURE OR PULMONARY EMBOLISM. BLOOD WORKUP TODAY INCLUDES CBC, CMP, TROPONIN, PROBNP, COAGS SHOWED WBC 10.9, C-REACTIVE PROTEIN 2.2, PROBNP 4930 RESPIRATORY PANEL NEGATIVE FOR COVID FLU RSV CHEST X-RAY SHOWED, ATELECTASIS, PNEUMONIA, CONGESTIVE HEART FAILURE Lab Data 07/15/24 09:56 07/15/24 09:56 Labs: Lab Results 07/15/24 07/15/24 07/15/24 Range/Units 09:56 09:56 10:29 WBC 10.9 H (4.5-10.0) K/mm3 RBC 4.32 (4.2-5.4) M/mm3 Hgb 11.7 L (12.0-15.0) g/dL Hct 37.7 (37.0-47.0) % MCV 87.3 (80-100) fl MCH 27.1 (26-34) pg MCHC 31.0 L (32-36) g/dl RDW 15.1 H (11.5-14.5) % Plt Count 386 H (150-375) k/mm3 MPV 10.1 (7.4-10.4) fl Immature Gran % (Auto) 0.2 (0-0.5) % Neut % (Auto) 64.9 (45.5-73.1) % Lymph % (Auto) 29.3 (18.3-44.2) % [place] % (Auto) 4.4 (2.6-8.5) % Eos % (Auto) 0.8 (0-4.4) % Baso % (Auto) 0.4 (0.2-1.2) % Lymph # (Auto) 3.19 (0.9-3.2) K/mm3 [place] # (Auto) 0.5 (0.1-0.6) K/mm3 Eos # (Auto) 0.1 (0-0.3) K/mm3 Baso # (Auto) 0.0 (0.0-0.1) K/mm3 Abs Immat Gran (auto) 0.02 (0.00-0.031) K/mm3 Absolute Neuts (auto) 7.1 H (1.3-6.7) K/mm3 Absolute Nucleated RBC 0.000 (0.0-0.012) K/mm3 Nucleated RBC % 0.0 (0.0-0.2) % PT 15.1 H (11.1-14.7) Seconds INR 1.1 APTT 35.1 (22.3-36.8) Seconds Sodium 140 (137-145) mmol/L Potassium 3.8 (3.4-5.0) mmol/L Chloride 102 (98-107) mmol/L Carbon Dioxide 26 (22-30) mmol/L Anion Gap 12 (4-12) mmol/L BUN 13 (7-17) mg/dL Creatinine 0.92 (0.7-1.0) mg/dL Estim Creat Clear Calc 55 ml/min Estimated GFR > 60 (59 - ) Glucose 117 H (65-110) mg/dL Lactic Acid 1.3 (0.7-2.0) mmol/L Calcium 9.1 (8.4-10.2) mg/dL Total Bilirubin 0.5 (0.2-1.3) mg/dL AST 26 (14-36) U/L ALT 30 (6-35) U/L Alkaline Phosphatase 90 (38-126) U/L Troponin I 0.014 (0.000-0.034) ng/mL C-Reactive Protein 2.2 H (<1.0) mg/dL NT-Pro-B Natriuret Pep 4930 H Cancelled (19.9-100) pg/mL Total Protein 8.0 (6.3-8.2) g/dL Albumin 4.1 (3.5-5.1) g/dL Influenza A (RT-PCR) Negative (Negative) Influenza B (RT-PCR) Negative (Negative) RSV (RT-PCR) Negative (Negative) SARS-CoV-2 RNA (RT-PCR) Negative (Negative) Discharge Plan Discharge Clinical Impression: CHF (congestive heart failure), Pneumonia Patient Disposition: Still a Patient Condition: Stable Patient Language: Mauritanian Prescriptions: No Action amlodipine 10 mg tablet 10 mg PO DAILY Qty: 90 3RF atorvastatin 20 mg tablet 20 mg PO QHS Qty: 90 3RF calcitriol 0.25 mcg capsule 0.25 mcg PO DAILY dapagliflozin propanediol [Farxiga] 10 mg tablet 10 mg PO DAILY ergocalciferol (vitamin D2) 1,250 mcg (50,000 unit) capsule 50,000 unit PO WEEKLY Linzess 72 mcg capsule 145 mcg PO DAILY Trulicity 1.5 mg/0.5 mL pen injector 1.5 mg subcut WEEKLY (DME) lancets [Accu-Chek Softclix Lancets] Misc See Rx Instructions .Route Qty: 100 2RF Rx Instructions: Use to check BS once daily. (DME) blood-glucose meter [Accu-Chek Guide Glucose Meter] Misc See Rx Instructions .Route Qty: 1 0RF Rx Instructions: As directed losartan 100 mg tablet 100 mg PO DAILY Qty: 90 3RF (DME) Accu-Chek Guide test strips Strip See Rx Instructions .Route Qty: 100 0RF Rx Instructions: Use strip to check glucose daily-NEEDS APPOINTMENT Follow-up/Referrals: PHYSICIAN NOT ON STAFF,NONSTAFF [Non-Staff] -
[2024-07-15 10:04] LABS: Basophils Percent Auto 0.4 % (0.2-1.2); Eosinophils Absolute Auto 0.1 K/mm3 (0-0.3); Eosinophils Percent Auto 0.8 % (0-4.4); Hematocrit 37.7 % (37.0-47.0); Hemoglobin 11.7 g/dL (12.0-15.0); Immature Granulocyte Absolute 0.02 K/mm3 (0.00-0.031); Immature Granulocyte Percent A 0.2 % (0-0.5); Lymphocytes Absolute Auto 3.19 K/mm3 (0.9-3.2); Lymphocytes Percent Auto 29.3 % (18.3-44.2); Mean Corpuscular Hemoglobin 27.1 pg (26-34); Mean Corpuscular Volume 87.3 fl (80-100); Mean Platelet Volume 10.1 fl (7.4-10.4); Monocytes Absolute Auto 0.5 K/mm3 (0.1-0.6); Monocytes Percent Auto 4.4 % (2.6-8.5); Neutrophils Absolute Auto 7.1 K/mm3 (1.3-6.7); Neutrophils Percent Auto 64.9 % (45.5-73.1); Platelet Count Result 386 k/mm3 (150-375); Red Blood Count 4.32 M/mm3 (4.2-5.4); Red Cell Distribution Width 15.1 % (11.5-14.5); White Blood Count 10.9 K/mm3 (4.5-10.0)
[2024-07-15 10:13] LABS: Alanine Aminotransferase 30 U/L (6-35); Albumin Level 4.1 g/dL (3.5-5.1); Alkaline Phosphatase 90 U/L (38-126); Anion Gap 12 mmol/L (4-12); Aspartate Amino Transferase 26 U/L (14-36); Bilirubin,Total 0.5 mg/dL (0.2-1.3); Blood Urea Nitrogen 13 mg/dL (7-17); Calcium 9.1 mg/dL (8.4-10.2); Carbon Dioxide 26 mmol/L (22-30); Chloride 102 mmol/L (98-107); Estimated CRCL calculation 55 ml/min; Estimated Glomerular Filt Rate > 60; Glucose 117 mg/dL (65-110); Potassium 3.8 mmol/L (3.4-5.0); Sodium 140 mmol/L (137-145)
[2024-07-15 10:22] LABS: NT Pro B Type Natriuretic Pept 4930 pg/mL (19.9-100)
--- OUTSIDE RECORDS SUMMARY | 2024-07-15 10:30 | XMS_ITS | Patient Health Record ---
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 3 ; Type 2 diabetes mellitus with other diabetic neurological complication E11.49 ; Callus L84 ; Synovitis of right ankle M65.9 and Foot pain, right M79.671 1 OF [facility] [address] [address] 11/10/2023 Tammy Aponte Onychodystrophy L60. 3 ; Type 2 diabetes mellitus with other diabetic neurological complication E11.49 and Callus L84 1 OF [facility] [address] [address] 01/21/2024 Tammy Aponte Onychodystrophy L60. 3 ; Type 2 diabetes mellitus with other diabetic neurological complication E11.49 and Callus L84 1 OF [facility] [address] [address] 06/28/2024 Tammy Aponte Onychodystrophy L60. 3 ; Type 2 diabetes mellitus with other diabetic neurological complication E11.49 and Callus L84 Assessments Encounter Date Diagnosis (ICD Code) Assessment Notes Treatment Notes Treatment Clinical Notes Section Notes 08/28/2023 Onychodystrophy (ICD-10 - L60.3) 11/10/2023 Onychodystrophy (ICD-10 - L60.3) 01/21/2024 Onychodystrophy (ICD-10 - L60.3) 06/28/2024 Onychodystrophy (ICD-10 - L60.3) 06/28/2024 Type 2 diabetes mellitus with other diabetic neurological complication (ICD-10 - E11.49) Considering the associated comorbidities and physical exam findings today, this patient is at substantial risk of developing serious foot complications in the absence of regular and professional palliative foot care. 01/21/2024 Type 2 diabetes mellitus with other [...] foot care. 08/28/2023 Callus (ICD-10 - L84) 08/28/2023 Synovitis of right ankle (ICD-10 - [...] to follow-up as needed for the pain. 01/21/2024 Callus (ICD-10 - L84) 06/28/2024 Callus (ICD-10 - L84) 08/28/2023 Foot pain, right (ICD-10 - M79.671) 08/28/2023 Other Plan Of Treatment Next Appt Details Provider Name:Tammy Aponte, 09/06/2024 10:00:00 AM, [address], [place], [address], Insurance Providers Payer Name Payer Address Payer Phone Subscriber Number Group Number Insured Name Patient Relationship to Insured Coverage Start Date Coverage End Date [employer] [address] [address] [place] [address] [id number] Lindsay Pedersen Self - patient is the insured Medical (General) History Medical History History ICD Code Anemia, Arthritis, Diabetes, HBP, high cholesterol, Decreased kidney function, Lymphedema Surgical History Surgery Date(Month/Year) RT TKR 06/2023
--- OUTSIDE RECORDS SUMMARY | 2024-07-15 10:30 | XMS_ITS ---
Author Organization [facility] Address [address] [place] [address] Care Team Providers Care Website Admin Name Role Phone Gustavo Devonte Unavailable [phone] SOCIAL HISTORY Sex Assigned At : Social History Observation Description Sex Assigned At Female PROBLEMS Problem Type ICD Code Onset Dates Problem Status W/U Status Risk SNOMED Code Notes Problem Primary generalized (osteo)arthritis (M15.0) Active confirmed Primary general ised osteoarthritis (075696302) Problem Renal osteodystrophy (N25.0) Active confirmed Renal osteodyst rophy (08153743) Problem Secondary hyperparathyroidism of renal origin (N25.81) Active confirmed Secondary hyperparathyroidism of renal origin (68994243) Encounters Encounter Location Date Provider Diagnosis [facility] [address] [facility] [address] [place] [address] 05/28/2024 Devonte Chen Chronic kidney disea se, stage 3b N18.32 ; Type 2 diabetes mellitus with hyperglycemia E11.65 ; Essential (primary) hypertension I10 ; Obesity, unspecified E66.9 ; Lymphedema, not elsewhere classified I89.0 ; Anemia, unspecified D64.9 ; Primary generalized (osteo)arthritis M15.0 ; Renal osteodystrophy N25.0 and Secondary hyperparathyroidism of renal origin N25.81 ASSESSMENTS Encounter Date Diagnosis Assessment Notes Treatment Notes Treatment Clinical Notes Section Notes 05/28/2024 Chronic kidney disea se, stage 3b (ICD-10 - N18.32) 05/28/2024 Type 2 diabetes mellitus with hyperglycemia (ICD-10 - E11.65) 05/28/2024 Essential (primary) hypertension (ICD-10 - I10) 05/28/2024 Obesity, unspecified (ICD-10 - E66.9) 05/28/2024 Lymphedema, not elsewhere classified (ICD-10 - I89.0) 05/28/2024 Anemia, unspecified (ICD-10 - D64.9) 05/28/2024 Primary generalized (osteo)arthritis (ICD-10 - M15.0) 05/28/2024 Renal osteodystrophy (ICD-10 - N25.0) 05/28/2024 Secondary hyperparathyroidism of renal origin (ICD-10 - N25.81) PLAN OF TREATMENT Next Appt Details Provider Name:Devonte Gustavo , 09/10/2024 02:15:00 PM, [address] [facility] [address], [place], [address], Progress Notes * KIMMY COTTOHDOB:1955 (69 yo F)Acc No.[id number]:05/28/2024 Progress Notes Patient: ЕКАТЕРИНА COTTO Provider: MD MAURILIO, F.A.C.P, F.A.S.N. :1955 Age:69 Y Sex:Female Date:05/28/2024 Address:[address] [place], [place] [id number] Subjective: * Chief Complaints: * * Medical History: Objective: Assessment: * Assessment: 1. Chronic kidney disease, stage 3b - N18.32 (Primary) 2. Type 2 diabetes mellitus with hyperglycemia - E11.65 3. Essential (primary) hypertension - I10 4. Obesity, unspecified - E66.9 5. Lymphedema, not elsewhere classified - I89.0 6. Anemia, unspecified - D64.9 7. Primary generalized (osteo)arthritis - M15.0 8. Renal osteodystrophy - N25.0 9. Secondary hyperparathyroidism of renal origin - N25.81 Plan: * Treatment: * Billing Information: * Visit Code: 49780 Office Visit, Est Pt., Level 4. * Procedure Codes: * Sign off status: Pending * Provider: MD MAURILIO, F.A.C.P, F.A.S.N. Date: 05/28/2024
--- OUTSIDE RECORDS SUMMARY | 2024-07-15 10:30 | XMS_ITS | Clinical Summary ---
Author Organization [facility] al Address [address] [place] [address] Care Team Providers Care Finishing Range Feeder Name Role Phone Andrea aDhlia Miramontes PA Unavailable [phone] Amina Mccray GRANT WRITER Primary Care Provider [phone] Allergies Active Allergy Reactions Criticality Noted Date Comments Adhesive Hives Medium 05/25/2024 Shellfish Containing Products Swelling Medium 2023 Shrimp Swelling,Swollen tongue High 11/20/2022 Medications amLODIPine (NORVASC) 10 mg tablet Take 1 tablet (10 mg total) by mouth daily Active losartan (COZAAR) 100 mg tablet Take 1 tablet (100 mg total) by mouth daily 3 02/24/20 18 Active atorvastatin (LIPITOR) 20 mg tablet Take 1 tablet (20 mg total) by mouth daily 10/21/19 22 Active Accu-Chek Softclix Lancets lancets USE TO CHECK GLUCOSE ONCE DAILY 04/29/19 23 Active Accu-Chek Guide test strips strip USE ONE STRIP TO CHECK GLUCOSE DAILY 04/29/19 23 Active calcitRIOL (ROCALTROL) 0.25 mcg capsule Take 1 capsule (0.25 mcg total) by mouth daily Active ergocalciferol (VITAMIN D) 50,000 unit capsule Take 1 capsule (50,000 Units total) by mouth once a week Active Accu-Chek Guide Me Glucose Mtr misc 1 Insert daily 03/24/19 24 Active polyethylene glycol 236-22.74-6.74 -5.86 gram solution Take 240 mL by mouth once 04/10/19 24 Active dapagliflozin propanediol (Farxiga) 10 mg tablet Take 1 tablet every day by oral route. Active Trulicity 1.5 mg/0.5 mL pen injector INJECT CONTENTS OF ONE SYRINGE EVERY WEEK 07/28/19 24 Active lidocaine (LIDODERM) 5 % USE 1 PATCH EXTERNALLY ONCE DAILY REMOVE AND DISCARD PATCH WITHIN 12 HOURS OR DIRECTED BY DOCTOR 06/30/19 24 Active linaCLOtide (Linzess) 145 mcg capsule Take 1 capsule (145 mcg total) by mouth every morning Active azithromycin (ZITHROMAX) 250 mg tabletIndicatio ns:Lower respiratory infection (e.g., bronchitis, pneumonia, pneumonitis, pulmonitis) Take 2 tablets the first day, then 1 tablet daily for 4 days. 6 tablet 07/10/19 25 Active benzonatate (TESSALON) 200 mg capsuleIndicati ons:Lower respiratory infection (e.g., bronchitis, pneumonia, pneumonitis, pulmonitis) Take 1 capsule (200 mg total) by mouth 3 (three) times a day as needed for cough 30 capsule 07/10/19 25 Active apixaban (ELIQUIS) 2.5 mg tabletIndicatio ns:VTE Prophylaxis Following Ortho Surgery Take 1 tablet (2.5 mg total) by mouth 2 (two) times a day 28 tablet 07/01/19 24 025 Discontinu ed(Therapy completed) oxyCODONE (ROXICODONE) 10 mg tabletIndicatio ns:Pain Take 1 tablet (10 mg total) by mouth every 4 (four) hours 30 tablet 08/06/19 24 025 Discontinu ed(Therapy completed) oxyCODONE (ROXICODONE) 5 mg immediate release tabletIndicatio ns:Pain Take 1 tablet (5 mg total) by mouth every 4 (four) hours as needed for pain 30 tablet 08/07/19 24 025 Discontinu ed(Therapy completed) metroNIDAZOLE (METROGEL) 0.75 % (37.5mg/5 gram) vaginal gel INSERT 1 APPLICATORFUL VAGINALLY AT BEDTIME FOR 5 NIGHTS 025 Discontinu ed(Therapy completed) amoxicillin 500 mg capsule TAKE FOUR CAPSULES BY MOUTH ONE HOUR BEFORE APPOINTMENT 10/23/19 24 025 Discontinu ed(Therapy completed) valACYclovir (VALTREX) 500 mg tablet Take 1 tablet (500 mg total) by mouth 10/24/19 24 Discontinu ed(Therapy completed) penciclovir (DENAVIR) 1 % cream Apply 1 application 6 times a day by topical route for 5 days. 10/24/19 Discontinu ed(Therapy completed) amoxicillin-cla vulanate (AUGMENTIN) 875-125 mg per tabletIndicatio ns:Lower respiratory infection (e.g., bronchitis, pneumonia, pneumonitis, pulmonitis) Take 1 tablet by mouth 2 (two) times a day for 5 days 10 tablet 07/10/19 Active Problems Problem Noted Date Diagnosed Date Nonsmoker 05/25/2024 Psychophysiological insomnia 05/25/2024 BMI 37.0-37.9, adult 05/25/2024 Herpes simplex 10/24/2023 Palpitations 10/14/2023 S/P total [...] 12/26/2022 Type 2 diabetes mellitus without complication Assessment & Plan (07/08/2023 1:21 PM CDT): [...] Lymphedema of lower extremity 06/06/2022 Obesity 06/06/2022 Obstructive sleep apnea 06/06/2022 Tear of meniscus of knee [...] Encounters Date Type Department Care Team Description 07/11/2024 Results Follow-Up [facility] at [address] [address] Padmini Ray NP 07/09/2024 2:20 PM CDT Ancillary Procedure [facility] Imaging at [address] [address] Acute cough 07/09/2024 2:15 PM CDT Office Visit [facility] at [address] [address] Padmini Ray NP Lower respiratory infection (e.g., bronchitis, pneumonia, pneumonitis, pulmonitis) (Primary Dx); Urinary frequency; Glucosuria 07/09/2024 2:11 AM CDT - 07/09/2024 11:59 PM CDT Hospital Encounter [address] [address] Urinary frequency Discharge Disposition: Discharge to home or self care 07/09/2024 Results Follow-Up [facility] at [address] [address] Padmini Ray NP 05/25/2024 11:45 AM HYDRAULIC REPAIRER Office Visit [facility] Pulmonology [address] [place] [address] Jamila Latham MD Obstructive sleep apnea (Primary Dx); Psychophysiological insomnia; Nonsmoker; BMI 37.0-37.9, adult 05/17/2024 9:57 AM HYDRAULIC REPAIRER - 05/17/2024 11:59 PM HYDRAULIC REPAIRER Hospital Encounter [address] [address] Hiatal hernia Discharge Disposition: Discharge to home or self care 05/17/2024 9:56 AM HYDRAULIC REPAIRER - 05/17/2024 11:59 PM HYDRAULIC REPAIRER Hospital Encounter [facility] [place] [address] [place] [address] Atherosclerosis of artery of lower extremity Discharge Disposition: Discharge to home or self care from Last 3 Months Surgical History Surgery [...] 0.6 oz pur e alcohol) [facility] Utilities Answer Date Recorded In [...] often do you attend chur ch or advent services? More than 4 times per year 07/02/2023 Do you belong to any clubs o r organizations such as quaker groups, unions, fraternal or athletic groups, or [...] place to sleep or slept in a group home (including now)? No 07/02/2023 Personal Safety Answer Date Recorded Have you ever been in or are you currently in a harmful physical or emotional relationship or is someone making you feel afraid or unsafe? Denies 07/01/2023 Comments No Sex and Gender Information Value Date Recorded Sex Assigned at Not on file Legal Sex Female 5:35 PM HYDRAULIC REPAIRER Gender Identity Not on file Sexual Orientation Not on file Obstetrics History Last Filed Vital Signs Vital Sign Reading Time Taken Comments Blood Pressure 153/82 07/09/2024 1:58 PM CDT Pulse 111 07/09/2024 2:19 PM CDT Temperature 36.9 C (98.5 F) 07/09/2024 1:58 PM CDT Respiratory Rate 22 07/09/2024 1:58 PM CDT Oxygen Saturation 96% 07/09/2024 2:19 PM CDT Inhaled Oxygen Concentration - - Weight 93.3 kg (205 lb 9.6 oz) 05/25/2024 11:54 AM HYDRAULIC REPAIRER Height 157.5 cm (5' 2 ) 05/25/2024 11:54 AM HYDRAULIC REPAIRER Body Mass Index 37.6 05/25/2024 11:54 AM HYDRAULIC REPAIRER Plan of Treatment Health Maintenance Due Date Last Done Comments Albumin Creatinine Ratio, Urine 1955 Colon Cancer Screening-Colonoscopy 1955 Depression Screening 1955 Dilated Eye Exam 1956 Foot Exam 1956 Lipid Panel 1956 DTaP/Tdap/Td Vaccine (1 - Tdap) 01/18/1967 Hepatitis B Screening 01/18/1974 Pneumococcal vaccine 65+ (1 of 2 - PCV) 01/18/1975 Zoster Vaccine (2 of 2) 05/29/2019 04/03/2019 Well Visit 65+ 01/18/2021 Hemoglobin A1C 12/12/2023 06/11/2023 Fall Risk Assessment 07/02/2024 07/03/2023 eGFR 07/06/2024 07/07/2023, 06/22, 07/02/2023, Additional history exists Osteoporosis Screening-Bone Density Scan 10/07/2024 10/07/2022, 09/23/2022 Breast Cancer Screening-Mammogram 10/22/2024 10/23/2023, 01/09/2022, 01/03/2021, Additional history exists Influenza Vaccine (Season Ended) 2024 12/01/2019, 12/19/2018, 02/03/2018, Additional history exists Hepatitis C Screening Completed 06/18/2012 Medical Devices Implanted Type Area Director Perioperative Device Identifier Shelf Expiration Date Model / Serial / Lot [employer] Attune Cruciate Retain Cementless Knee Right 5 Narrow Component [id number] - [id number] Implanted:Qty: 1 on 07/01/2023 by Kamar Gandara DO at [facility] Right: Knee [employer] [id number] 11/22/2031 [id number] / / [id number] [employer] Attune Fb Tib Base Sz 4 Por [id number] - [id number] Implanted:Qty: 1 on 07/01/2023 by Kamar Gandara DO at [facility] Right: Knee [employer] [id number] 12/22/2031 [id number] / / [id number] [employer] Insert Tibial Knee Fixed Rm Posterior Stabilized Attune 5mm Size 5 Polyethylene [id number] - [id number] Implanted:Qty: 1 on 07/01/2023 by Kamar Gandara DO at [facility] Right: Knee [employer] [id number] 03/23/2031 [id number] / / [id number] Procedures Procedure Name Priority Date/Time Associated Diagnosis Comments XR CHEST PA LATERAL 2 VIEWS Schedule JOSE, Read JOSE (Appt Today, Awaiting Results) 07/09/2024 2:37 PM CDT Acute cough POCT GLUCOSE Routine 07/09/2024 2:22 PM CDT Glucosuria URINE CULTURE Routine 07/09/2024 2:11 PM CDT Urinary frequency POCT URINALYSIS DIPSTICK Routine 07/09/2024 2:10 PM CDT Urinary frequency CT CHEST WO CONTRAST Schedule Routine, Read Routine (OP Routine) 05/17/2024 10:18 AM HYDRAULIC REPAIRER Atherosclerosis of artery of lower extremity CT ABDOMEN PELVIS WO CONTRAST Schedule Routine, Read Routine (OP Routine) 05/17/2024 10:17 AM HYDRAULIC REPAIRER Hiatal hernia SCREENING MAMMOGRAM BILATERAL W PREM Schedule Routine, [...] Recently Relevant to Health Maintenance Results * XR Chest PA Lateral 2 Views (07/09/2024 2:37 PM CDT) Anatomical Region Laterality Modality Body, Chest N/A Digital Radiogra phy 07/09/2024 3:19 PM CDT Narrative 07/09/2024 3:21 PM CDT EXAM DESCRIPTION: XR CHEST PA LATERAL 2 VIEWS REASON FOR STUDY: cough Pt complains of cough x 1 week. No asthma,copd,cancer,heart disease. No chest surgery. No smoking hx TECHNIQUE: There are 2 radiographic view(s) of the chest. COMPARISON: Prior exam 05/13/2022 FINDINGS: LUNGS: There are patchy opacities of the right lung with blunting of the right costophrenic angle indicative of an effusion. No definitive infiltrate on the left. No effusion. HEART/MEDIASTINUM: Senescent change of the aorta. Mild cardiomegaly. LINES/TUBES: None. BONES: No acute osseous abnormality. IMPRESSION: Multifocal pneumonia right lung with a small right pleural effusion. Follow-up recommended in 6 weeks to ensure resolution. THIS IS AN ELECTRONICALLY VERIFIED FINAL REPORT 07/09/2024 3:21 PM - Electronically signed by Kwesi DENNEY T: Report ID: [id number] Reading Location: [id number] Procedure Note Kwesi Pittman MD - 07/09/2024 EXAM DESCRIPTION: XR CHEST PA LATERAL 2 VIEWS REASON FOR STUDY: cough Pt complains of cough x 1 week. No asthma,copd,cancer,heart disease. Nochest surgery. No smoking hx TECHNIQUE: There are 2 radiographic view(s) of the chest. COMPARISON: Prior exam 05/13/2022 FINDINGS: LUNGS: There are patchy opacities of the right lung withblunting of the right costophrenic angle indicative of an effusion. No definitive infiltrate on the left. No effusion. HEART/MEDIASTINUM: Senescent change of the aorta. Mild cardiomegaly. LINES/TUBES: None. BONES: No acute osseous abnormality. IMPRESSION: Multifocal pneumonia right lung with a small right pleural effusion. Follow-up recommended in 6 weeks to ensure resolution. THIS IS AN ELECTRONICALLY VERIFIED FINAL REPORT 07/09/2024 3:21 PM - Electronically signed by Kwesi DENNEY T: Report ID: [id number] Reading Location: [id number] Padmini M. Trower GRANT WRITER IMG XR PROCEDURES Final Result * POCT glucose (07/09/2024 2:22 PM CDT) Pathologist [facility] [place] Glucose Blood, POC 150 mg/dL Comment:Just ate at [employer]. Blood 07/09/2024 2:22 PM CDT us Padmini Ray NP POINT OF CARE TEST ORDERABLES Final Result * Urine culture Urine, clean voided (07/09/2024 2:11 PM CDT) Pathologist [facility] [place] Report Final Report: Less than 100,000 colonies/mL (clinically insignificant growth based on current clinical standards) Comment:Testing performed by : [facility], [address] [place]., [address] Organism (CLINICALLY INSIGNIFICANT GROWTH [facility] Urine, clean voided 07/09/2024 2:11 PM CDT 07/10/2024 5:35 AM CDT Narrative MICHELA - 07/11/2024 12:44 PM CDT Testing performed by [facility] Microbiology Laboratory ([phone]) us Padmini Ray NP LAB MICROBIOLOGY - GENERAL ORD ERABLES Final Result [facility] [address] Department [place] [address] * (ABNORMAL) POCT urinalysis dipstick (07/09/2024 2:10 PM CDT) Pathologist [facility] [place] Color, Urine, POC Yellow Clarity, ur, POC Clear Clear Glucose, ur, POC 1000.(A) Negative MG/DL Bilirubin, ur, POC Negative Negative, Small, Moderate, Large Ketones, ur, POC Trace(A) Negative Specific [place], POC 1.020 1.003 - 1.030 Blood, ur, POC Negative Negative pH, ur, POC 6.5 5.0 - 8.0 Protein, ur, POC 100.(A) Negative Urobilinogen, urine, POC 0.2 0.2 - 1.0 mg/dL Nitrite, ur, POC Negative Negative Leukocytes, ur, POC Negative Negative Lot Number [id number] Urine 07/09/2024 2:10 PM CDT Padmini Ray NP POINT OF CARE TEST ORDERABLES Final Result * CT Chest WO Contrast (05/17/2024 10:18 AM HYDRAULIC REPAIRER) Anatomical Region Laterality Modality Body N/A Computed Tomogra phy 05/21/2024 8:03 AM HYDRAULIC REPAIRER Narrative 05/21/2024 8:11 AM HYDRAULIC REPAIRER EXAM DESCRIPTION: CT CHEST WO CONTRAST REASON FOR STUDY: Only provided history: Atherosclerosis of artery of lower extremity. No provided chest complaints. No provided history of trauma. No provided smoking history. No provided past medical, to include cancer, history. No provided past surgical history. TECHNIQUE: CT scan of the chest performed without intravenous contrast using helical scanning technique. Reconstructed coronal and sagittal MPR images reviewed. All images stored on PACS. Automated exposure control was used as a dose optimization technique for this examination. COMPARISON: DEXA scan 09/23/2022: Reported as normal bone mass; relevant portions of CT abdomen pelvis without contrast 05/13/2022; chest radiograph 05/13/2022 and 02/07/2022. FINDINGS: The sensitivity for detection of solid visceral lesions is diminished without the use of intravenous contrast. LUNGS: Slight scarring and/or atelectasis in the lingula/left upper lobe. No right focal consolidation. No pulmonary mass. 5 mm right upper lobe noncalcified solid pulmonary nodule (axial sequence 3, image 26 and 92) with smaller scattered noncalcified solid pulmonary nodules to include 2 mm right middle lobe (axial sequence 3, image 49 of 92) and 2 mm left lower lobe (axial sequence 3, image 69 and 92) for reference. PLEURA: No pleural effusion. No pneumothorax. MEDIASTINUM/HAILY: No unenhanced CT evidence of discrete mass. No lymphadenopathy by size criteria. HEART: Heart size is normal with no pericardial effusion. CORONARY ARTERY CALCIFICATION: Present. VASCULATURE: Atheromatous disease of the aorta with coronary artery calcification. No aneurysms of the aorta. AXILLA: Increased number and prominence of bilateral axillary lymph nodes, nonspecific. Correlate with clinical context. CHEST WALL: No unenhanced CT evidence of discrete mass. No subcutaneous emphysema. HARDWARE/LINES/TUBES: None. UPPER ABDOMEN: No unenhanced CT evidence of acute abnormality. Please reference CT abdomen pelvis performed at the same time as this study for abdominopelvic findings. MUSCULOSKELETAL: No acute abnormality. OTHER: No other significant abnormality. IMPRESSION: No acute cardiopulmonary process with 5 mm or less noncalcified solid pulmonary nodules as above. Surveillance recommendations per Fleischner Society criteria: Recent guidelines by the Fleischner Society (Radiology 959957,2017) divides patient into low vs. high risk (for example, patients who smoke are considered high risk) and provides followup recommendations as follows: SOLITARY PULMONARY NODULE: Patients considered LOW RISK for lung cancer and a nodule less than 6 mm in diameter require no follow-up. In patients at a HIGHER RISK optional follow-up is in 1 year. MULTIPLE PULMONARY NODULES: Patients considered LOW RISK for lung cancer and multiple nodules less than 6 mm in diameter require no follow-up. In patients at a HIGHER RISK optional follow-up is in 1 year. Note: These recommendations do not apply to lung cancer screening, patients with immunosuppression, or patients with known primary cancer. http://pubs.rsna.org/doi/pdf/10.1148/radiol.7446460208 THIS IS AN ELECTRONICALLY VERIFIED FINAL REPORT 05/21/2024 8:11 AM - Electronically signed by Kamar Maldonado M.D. MAGDA T: Report ID: [id number] Reading Location: [place] [address] Procedure Note Kamar Maldonado MD - 05/21/2024 EXAM DESCRIPTION: CT CHEST WO CONTRAST REASON FOR STUDY: Only provided history: Atherosclerosis of artery oflower extremity. No provided chest complaints. No provided history of trauma.No provided smoking history. No provided past medical, to include cancer, history. No provided past surgical history. TECHNIQUE: CT scan of the chest performed without intravenous contrastusing helical scanning technique. Reconstructed coronal and sagittal MPR images reviewed. All images stored on PACS. Automated exposure control was usedas a dose optimization technique for this examination. COMPARISON: DEXA scan 09/23/2022: Reported as normal bone mass; relevant portions of CT abdomen pelvis without contrast 05/13/2022; chestradiograph 05/13/2022 and 02/07/2022. FINDINGS: The sensitivity for detection of solid visceral lesions is diminished without the use of intravenous contrast. LUNGS: Slight scarring and/or atelectasis in the lingula/left upperlobe. No right focal consolidation. No pulmonary mass. 5 mm right upper lobe noncalcified solid pulmonary nodule (axial sequence 3, image 26 and 92)with smaller scattered noncalcified solid pulmonary nodules to include 2 mmright middle lobe (axial sequence 3, image 49 of 92) and 2 mm left lower lobe(axial sequence 3, image 69 and 92) for reference. PLEURA: No pleural effusion. No pneumothorax. MEDIASTINUM/HAILY: No unenhanced CT evidence of discrete mass. No lymphadenopathy by size criteria. HEART: Heart size is normal with no pericardial effusion. CORONARY ARTERY CALCIFICATION: Present. VASCULATURE: Atheromatous disease of the aorta with coronary artery calcification. No aneurysms of the aorta. AXILLA: Increased number and prominence of bilateral axillary lymphnodes, nonspecific. Correlate with clinical context. CHEST WALL: No unenhanced CT evidence of discrete mass. No subcutaneous emphysema. HARDWARE/LINES/TUBES: None. UPPER ABDOMEN: No unenhanced CT evidence of acute abnormality. Please reference CT abdomen pelvis performed at the same time as this study for abdominopelvic findings. MUSCULOSKELETAL: No acute abnormality. OTHER: No other significant abnormality. IMPRESSION: No acute cardiopulmonary process with 5 mm or less noncalcified solid pulmonary nodules as above. Surveillance recommendations per Fleischner Society criteria: Recent guidelines by the Fleischner Society (Radiology 696363,2017)divides patient into low vs. high risk (for example, patients who smoke areconsidered high risk) and provides followup recommendations as follows: SOLITARY PULMONARY NODULE: Patients considered LOW RISK for lung cancerand a nodule less than 6 mm in diameter require no follow-up. In patients at a HIGHER RISK optional follow-up is in 1 year. MULTIPLE PULMONARY NODULES: Patients considered LOW RISK for lung cancerand multiple nodules less than 6 mm in diameter require no follow-up. Inpatients at a HIGHER RISK optional follow-up is in 1 year. Note: These recommendations do not apply to lung cancer screening,patients with immunosuppression, or patients with known primary cancer. http://pubs.rsna.org/doi/pdf/10.1148/radiol.0888262183 THIS IS AN ELECTRONICALLY VERIFIED FINAL REPORT 05/21/2024 8:11 AM - Electronically signed by Kamar MAN T: Report ID: [id number] Reading Location: [place] [address] Amina Diaz Shazia TOMLINSON IMG CT PROCEDURES Final R esult * CT Abdomen Pelvis WO Contrast (05/17/2024 10:17 AM HYDRAULIC REPAIRER) Anatomical Region Laterality Modality Body N/A Computed Tomogra phy 05/21/2024 12:0 5 PM HYDRAULIC REPAIRER Narrative 05/21/2024 12:15 PM HYDRAULIC REPAIRER EXAM DESCRIPTION: CT ABDOMEN PELVIS WO CONTRAST REASON FOR STUDY: hiatal hernia hiatal hernia Dx: Hiatal hernia TECHNIQUE: CT scan of the abdomen and pelvis performed without intravenous and without oral contrast using helical scanning technique. Reconstructed coronal and sagittal MPR images reviewed. All images stored on PACS. Automated exposure control was used as a dose optimization technique for this examination. COMPARISON: 05/13/2022. FINDINGS: The sensitivity for detection of visceral lesions is diminished without the use of intravenous contrast. LOWER CHEST: There is mild atelectasis within the lung bases. 3 mm nodule in the anterior right lower lobe is stable compared to prior study on 05/13/2022. 2 years of stability favors benign etiology. No specific imaging follow-up is necessary. The heart is stable in size without pericardial effusion. There is a tiny sliding type hiatal hernia which is less conspicuous on today's study than on the prior examination. LIVER: The liver is within normal limits in size. There is no suspicious mass within the limitations of this noncontrast study. GALLBLADDER: Partially contracted. No calcified stones or inflammatory change BILE DUCTS: No intrahepatic or extrahepatic ductal dilatation. SPLEEN: Normal size. No focal lesions. PANCREAS: No identified cystic or solid masses. No significant calcifications. No adjacent inflammation or peripancreatic fluid collections. Pancreatic duct not dilated. ADRENALS: Normal. KIDNEYS/URINARY TRACT: The kidneys are symmetric in size. There is a 4 mm hyperdense focus at the posterior cortex of the left kidney on axial image number 58 Hounsfield units are 60. This may represent faint calcification. This could also represent hemorrhagic or proteinaceous cyst. Additional 5 mm hyperdense focus at the posterior cortex on image 56. Hounsfield units are 68, suggesting hemorrhagic or proteinaceous cyst. There is no obstructing urolithiasis. There is no hydronephrosis or hydroureter. The urinary bladder is incompletely distended, accentuating wall thickness. GI: Tiny sliding-type hiatal hernia, less conspicuous than on prior examination. Minimal hyperattenuating material in the gastric lumen likely ingested food or medication. Equivocal wall thickening involving the duodenal bulb. This could be seen with duodenitis or peptic ulcer disease. No surrounding inflammatory change present. Small bowel loops are normal in caliber. No wall thickening or obstruction. The appendix is normal. There is mild increased stool burden within the colon. There is diverticulosis, without diverticulitis. PERITONEUM: There is no free intraperitoneal air. There is no free fluid. No mesenteric lymphadenopathy. RETROPERITONEUM: No retroperitoneal mass or adenopathy. REPRODUCTIVE: Hysterectomy changes. No adnexal mass. VASCULATURE: Abdominal aorta is atherosclerotic, without aneurysm. MUSCULOSKELETAL: There is thoracic and lumbar spondylosis with degenerative disc disease. Dextroconvex curvature centered at L4-5. 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 OTHER: Tiny fat containing umbilical hernia noted, stable. Minimal gas within the subcutaneous tissues of the right anterior chest wall, presumably related to recent subcutaneous injection. IMPRESSION: Tiny sliding-type hiatal hernia, less conspicuous than on prior examination. Equivocal wall thickening involving the duodenal bulb. This could be seen with duodenitis or peptic ulcer disease. No surrounding inflammatory change. Correlate with clinical symptoms. Endoscopy can be considered as warranted clinically for further evaluation. Diverticulosis without diverticulitis. Hyperdense 5 mm lesion at the posterolateral cortex of the left kidney most suggestive of hemorrhagic or proteinaceous cysts. Adjacent hyperdense structure could reflect faint calcification or additional 4 mm hemorrhagic/proteinaceous lesion. Additional findings as above. THIS IS AN ELECTRONICALLY VERIFIED FINAL REPORT 05/21/2024 12:15 PM - Electronically signed by Sushila Quintero M.D. TW T: Report ID: [id number] Reading Location: [id number] Procedure Note Sushila Quintero MD - 05/21/2024 EXAM DESCRIPTION: CT ABDOMEN PELVIS WO CONTRAST REASON FOR STUDY: hiatal hernia hiatal hernia Dx: Hiatal hernia TECHNIQUE: CT scan of the abdomen and pelvis performed without intravenousand without oral contrast using helical scanning technique. Reconstructed coronal and sagittal MPR images reviewed. All images stored on PACS.Automated exposure control was used as a dose optimization technique for this examination. COMPARISON: 05/13/2022. FINDINGS: The sensitivity for detection of visceral lesions is diminished without the use of intravenous contrast. LOWER CHEST: There is mild atelectasis within the lung bases. 3 mmnodule in the anterior right lower lobe is stable compared to prior study on 05/13/2022. 2 years of stability favors benign etiology. No specificimaging follow-up is necessary. The heart is stable in size without pericardial effusion. There is a tiny sliding type hiatal hernia which is less conspicuous on today's study than on the prior examination. LIVER: The liver is within normal limits in size. There is nosuspicious mass within the limitations of this noncontrast study. GALLBLADDER: Partially contracted. No calcified stones or inflammatory change BILE DUCTS: No intrahepatic or extrahepatic ductal dilatation. SPLEEN: Normal size. No focal lesions. PANCREAS: No identified cystic or solid masses. No significant calcifications. No adjacent inflammation or peripancreatic fluidcollections. Pancreatic duct not dilated. ADRENALS: Normal. KIDNEYS/URINARY TRACT: The kidneys are symmetric in size. There is a 4mm hyperdense focus at the posterior cortex of the left kidney on axial image number 58 Hounsfield units are 60. This may represent faintcalcification. This could also represent hemorrhagic or proteinaceous cyst. Additional 5mm hyperdense focus at the posterior cortex on image 56. Hounsfield unitsare 68, suggesting hemorrhagic or proteinaceous cyst. There is no obstructing urolithiasis. There is no hydronephrosis or hydroureter. The urinarybladder is incompletely distended, accentuating wall thickness. GI: Tiny sliding-type hiatal hernia, less conspicuous than on prior examination. Minimal hyperattenuating material in the gastric lumenlikely ingested food or medication. Equivocal wall thickening involving theduodenal bulb. This could be seen with duodenitis or peptic ulcer disease. No surrounding inflammatory change present. Small bowel loops are normal in caliber. No wall thickening or obstruction. The appendix is normal.There is mild increased stool burden within the colon. There is diverticulosis, without diverticulitis. PERITONEUM: There is no free intraperitoneal air. There is no freefluid. No mesenteric lymphadenopathy. RETROPERITONEUM: No retroperitoneal mass or adenopathy. REPRODUCTIVE: Hysterectomy changes. No adnexal mass. VASCULATURE: Abdominal aorta is atherosclerotic, without aneurysm. MUSCULOSKELETAL: There is thoracic and lumbar spondylosis withdegenerative disc disease. Dextroconvex curvature centered at L4-5. Mildosteoarthritis of the hips and SI joints. OTHER: Tiny fat containing umbilical hernia noted, stable. Minimal gas within the subcutaneous tissues of the right anterior chest wall,presumably related to recent subcutaneous injection. IMPRESSION: Tiny sliding-type hiatal hernia, less conspicuous than on priorexamination. Equivocal wall thickening involving the duodenal bulb. This could be seen with duodenitis or peptic ulcer disease. No surrounding inflammatorychange. Correlate with clinical symptoms. Endoscopy can be considered aswarranted clinically for further evaluation. Diverticulosis without diverticulitis. Hyperdense 5 mm lesion at the posterolateral cortex of the left kidneymost suggestive of hemorrhagic or proteinaceous cysts. Adjacent hyperdense structure could reflect faint calcification or additional 4 mm hemorrhagic/proteinaceous lesion. Additional findings as above. THIS IS AN ELECTRONICALLY VERIFIED FINAL REPORT 05/21/2024 12:15 PM - Electronically signed by Sushila Quintero M.D. TW T: Report ID: [id number] Reading Location: [place] [address] Amina [address] NP IMG [address] PROCEDURES Final R esult * Screening Mammogram Bilateral W Prem (10/23/2023 2:39 PM CDT) Anatomical Region Laterality Modality Breast Bilateral Mammography Narrative 10/24/2023 1:35 PM CDT Mammogram Technique: Bilateral Digital Breast Tomosynthesis, Bilateral C-view 2D Screening mammogram. Views obtained: bilateral craniocaudal and bilateral mediolateral oblique. Computer Aided Detection was performed. Mammogram Findings: The present examination has been compared to prior imaging studies performed at [facility] on 01/03/2021, 01/09/2022 and 06/19/2022. The breasts [...] OVERALL FINAL ASSESSMENT: BI-RADS CATEGORY 1: Negative. Procedure Note Radha Gates MD - 10/24/2023 Mammogram Technique: Bilateral Digital Breast Tomosynthesis, Bilateral C-view 2D Screening mammogram. Views obtained: bilateral craniocaudal and bilateral mediolateral oblique. Computer Aided Detection was performed. Mammogram Findings: The present examination has been compared to prior imaging studies performed at [facility] on 01/03/2021, 01/09/2022 and 06/19/2022. The breasts [...] FINAL ASSESSMENT: BI-RADS CATEGORY 1: Negative. Jody Duárn NP IMG MAMMO PROCEDURES Fin al Result * (ABNORMAL) eGFR (07/07/2023 8:36 AM CDT) eGFR 56(L) >=60 mL/min/1. 73 m2 MICHELA SMITH Comment: Interpretive Data Reference Interval Normal >/= [...] Current interpretive data was last reviewed 2021. [facility], [address] [place] [address], [place]., [address] Blood 07/07/2023 8:36 AM CDT 07/07/2023 9:00 AM CDT Robb Lr MD LAB BLOOD ORDERABLES Final R esult Performing Organization Address [facility] Co de Phone Number [address] [place] [address] * (ABNORMAL) Hemoglobin A1c (06/11/2023 9:28 AM CDT) Hgb A1C 6.3(H) 4.0 - 5.6 % Estimated Average Glucose 134 mg/dL MICHELA Comment: The ADA recommends reporting an estimated Average Glucose (eAG) with all Hemoglobin A1c results using the equation derived from a study of 507 normal and diabetic adults. Minority populations were underrepresented and children were not included. (Diabetes Care 31:1277-2579, 2008). The eAG is not equivalent to a fasting glucose. Blood 06/11/2023 9:28 AM CDT 06/11/2023 9:40 AM CDT Kamar Gandara DO LAB BLOOD ORDERABLES Final Res ult Performing Organization Address [facility] Co de Phone Number [address] [place] [address] * Dexa Axial Skeleton Bone Density 1 or 2 Site (09/23/2022 10:06 AM CDT) Anatomical Region Laterality Modality Body N/A Mammography 09/23/2022 3:51 PM CDT Narrative 09/23/2022 3:52 PM CDT EXAM DESCRIPTION: DEXA AXIAL SKELETON BONE DENSITY 1 OR MORE SITES REASON FOR STUDY: 67 y/o year old F with given history of: Postmenopausal status. Patient takes vitamin-D and calcium. History of hysterectomy. Director Perioperative/Model: Hologic Horizon A (S/N [id number]) CLINICAL INFORMATION: Current height: 62 inches Maximum [...] mass (T-score between -1.0 and -2.5) replaces the previously used term osteopenia Osteoporosis (T-score = or below -2.5) Medical evaluation for secondary causes of low bone mineral density may be appropriate. FRAX is a World Health Organization validated fracture risk assessment tool that calculates a person's 10 year probability of a major osteoporosis related fracture and hip fracture. According to the National Osteoporosis Foundation guidelines, postmenopausal [...] Sushila Quintero M.D. TW: TW Report ID: [id number] Reading Location: [id number] Procedure Note Sushila Quintero MD - 09/23/2022 EXAM DESCRIPTION: DEXA AXIAL SKELETON BONE DENSITY 1 OR MORE SITES REASON FOR STUDY: 67 y/o year old F with given history of:Postmenopausal status. Patient takes vitamin-D and calcium. History of hysterectomy. Director Perioperative/Model: Hologic Horizon A (S/N [id number]) CLINICAL INFORMATION: Current height: 62 inches Maximum [...] Sushila Quintero M.D. TW: TW Report ID: [id number] Reading Location: [id number] us Amina Mccray GRANT WRITER IMG DXA PROCEDURES Final Result * Serum Hepatitis C ab (06/18/2012 10:52 AM CDT) HCV ab Negative NEG HISTORICAL RESULTS Serum 06/18/2012 10:5 2 AM CDT Narrative HISTORICAL RESULTS - 06/19/2012 4:50 AM CDT LAB Frequency Standing Order? No Expiration Date: Interpretive Data If confirmation is required, call Laboratory Customer Service to request sample to be sent to [facility] for Hepatitis C Virus (HCV) RNA Detection and Quantitation by Real-Time Reverse [employer]-PCR (RT-PCR). Current interpretive data was last revised on 2011 us Rommel Vaughan DO LAB BLOOD ORDERABLES Final Resul t HISTORICAL RESULTS from Last 3 Months or Most Recently Relevant to Health Maintenance Insurance [facility] Address: [address] [address] [place] [address] [employer] [facility] MEDIC[facility] Address: [address] [address] [place] [address] Advance Directives For more information, please contact: [phone] * Full Code (Latest Code Status on File) Date Activated Date Inactivated Comments 07/01/2023 3:35 PM 07/03/2023 6:36 PM Care Teams Finishing Range Feeder Relationship Specialty Start Date End Date Amina Mccray NP [address] [place] [address] PCP - General Nurse Practitioner 05/06/24 Dahlia Mendez PA [address] [place] [address] Orthopedic Surgery 07/01/23
--- OUTSIDE RECORDS SUMMARY | 2024-07-15 10:30 | XMS_ITS | Clinical Summary ---
Author Organization [facility] Address [address] [place] [address] Care Team Providers Care Personnel Coordinator Name Role Phone Bao Lyons DO Primary Care Provider [phone] Source Comments [facility],non-owned Affiliates and Associated Physician Practices is amultiple site organization consisting of ambulatory clinics and hospital sitesin [place], [place], [place] and [place]. This disclosure is being madepursuant to the Care Everywhere program and may not contain all information available regarding this patient. Last updated 17.[facility] Allergies No known active allergies Medications * Be aware that medications may not be up to date on this document. Alwaysverify current medications with the patient. losartan (COZAAR) 100 MG tablet Take 100 mg by mouth once daily Active amLODIPine (NORVASC) 10 MG tablet Take 10 mg by mouth once daily Active atorvastatin (LIPITOR) 10 MG tablet Take 10 mg by mouth at bedtime Active HYDROCHLOROTHIA ZIDE PO Active METFORMIN HCL ER, MOD, PO Active triamcinolone acetonide (KENALOG) 0.1 % creamIndication s:Allergic Contact Dermatitis Apply to affected area 2 times daily Reasons: Allergic Contact Dermatitis 30 g 1 7 Active Active Problems No known active problems Social History Tobacco Use Types Packs/Day Years Used Date Smoking Tobacco: Former Smokeless Tobacco: Never Comments No Sex and Gender Information Value Date Recorded Sex Assigned at Not on file Legal Sex Female 5:49 PM SIDE STITCHER Gender Identity Not on file Sexual Orientation Not on file Last Filed Vital Signs Vital Sign Reading Time Taken Comments Blood Pressure 118/70 01/27/2017 6:00 PM SIDE STITCHER Pulse 83 01/27/2017 6:00 PM SIDE STITCHER Temperature 36.7 C (98.1 F) 01/27/2017 6:00 PM SIDE STITCHER Respiratory Rate 17 01/27/2017 6:00 PM SIDE STITCHER Oxygen Saturation - - Inhaled Oxygen Concentration - - Weight 99.8 kg (220 lb) 01/27/2017 6:00 PM SIDE STITCHER Height 154.9 cm (5' 1 ) 01/27/2017 6:00 PM SIDE STITCHER Body Mass Index 41.57 01/27/2017 6:00 PM SIDE STITCHER Plan of Treatment Health Maintenance Due Date [...] 01/14/1974 DTAP/TDAP/TD VACCINES (1 - Tdap) 01/18/1975 PNEUMOCOCCAL VACCINE 50+ (1 of 1 - PCV) 01/18/2006 ZOSTER VACCINE (1 of 2) 01/18/2006 Respiratory Syncytial Virus (RSV) Vaccine Pt: or over 60 yrs (1 - Risk 60-74 years 1-dose series) 2016 SCREENING FOR DIABETES 01/27/2017 COVID-19 VACCINE (1 - 2023-2 5 season) 2023 DEPRESSION SCREENING 03/24/2024 INFLUENZA VACCINE (Season Ended) 2024 HEPATITIS B VACCINE Aged Out No longe r eligible based on patient's age to complete this topic HIB VACCINE Aged Out No longer eligi ble based on patient's age to complete this topic HPV VACCINE Aged Out No longer eligi ble based on patient's age to complete this topic MENINGOCOCCAL (Group B) VACC INE SHARED DECISION-MAKING Aged Out No longer eligibl e based on patient's age to complete this topic MENINGOCOCCAL GROUPS A/C/Y/W VACCINE Aged Out No longer eligible b ased on patient's age to complete this topic Insurance [facility] Care Teams Personnel Coordinator Relationship Specialty Start Date End Date Bao Lyons DO PCP - General Internal Medicine 01/27/17
--- OUTSIDE RECORDS SUMMARY | 2024-07-15 10:30 | XMS_ITS | Encounter Summary ---
Author Organization [facility] Address [address] [place] [address] Care Team Providers Care Intelligence Operations Specialist Name Role Phone SindiDahlia damian Fe LOYA Unavailable [phone] Amina Mccray WAISTBAND SETTER LOCKSTITCH Primary Care Provider [phone] Encounter Details Date Type Department Care Team ([facility] Contact Info) Description 07/09/2024 Results Follow-Up [facility] at [address] [address] Padmini Ray NP [address] [place] [address] [address] [place] [address] Social History Tobacco Use Types Packs/Day Years Used Date Smoking Tobacco: Never Passive Smoke Exposure: Past Smokeless Tobacco: Never Alcohol Use Standard Drinks/Week Comments No 0 (1 standard drink = 0.6 oz pur e alcohol) [facility] Utilities Answer Date Recorded In the past 12 months has [employer], gas, oil, or water [employer] threatened to shut off services in [...] week 07/02/2023 How often do you attend [facility] or latter-day services? More than 4 times per year 07/02/2023 Do you belong to any clubs o r organizations such as mormon groups, unions, fraternal or athletic groups, or [...] place to sleep or slept in a mcc (including now)? No 07/02/2023 Personal Safety Answer Date Recorded Have you ever been in or are you currently in a harmful physical or emotional relationship or is someone making you feel afraid or unsafe? Denies 07/01/2023 Comments No Sex and Gender Information Value Date Recorded Sex Assigned at Not on file Legal Sex Female 5:35 PM CREEL HAND Gender Identity Not on file Sexual Orientation Not on file documented as of this encounter Plan of Treatment Not on file documented as of this encounter Visit Diagnoses Not on filedocumented in this encounter Care Teams Intelligence Operations Specialist Relationship Specialty Start Date End Date Amina Mccray NP [address] [place] [address] PCP - General Nurse Practitioner 05/06/24 Dahlia Mendez PA [address] [place] [address] [place] [address] Orthopedic Surgery 07/01/23 documented as of this encounter
--- OUTSIDE RECORDS SUMMARY | 2024-07-15 10:30 | XMS_ITS | Clinical Summary ---
Author Organization [facility] Address [address] [place] [address] Phone Care Team Providers Care Rejoiner Name Role Phone FlorentinoBao potter Primary Care Provider [phone] Allergies No known active allergies Medications ONGLYZA 2.5 MG tablet Take 2.5 mg by mouth 1 (one) time each day 2 9 Active losartan (COZAAR) 100 MG tablet TAKE 1 TABLET BY MOUTH ONCE DAILY 8 Active hydroCHLOROthiaz adrianna (MICROZIDE) 12.5 MG capsule Take 12.5 mg by mouth 1 (one) time each day 1 9 Active atorvastatin (LIPITOR) 10 MG tablet TK 1 T PO D 8 Active amLODIPine (NORVASC) 10 MG tablet Take 10 mg by mouth Active FLUZONE QUADRIVALENT 0.5 ML suspension prefilled syringe PHARMACIST ADMINISTERED IMMUNIZATION ADMINISTERED AT TIME OF DISPENSING 0 9 Active Active Problems Problem Noted Date Diagnosed Date Chronic anemia 11/03/2018 Leukocytosis 11/03/2018 Chronic kidney disease stage 3 10/26/2018 Benign neoplastic disease 05/07/2016 Blood in urine 06/18/2012 Hypertension 06/18/2012 Proteinuria 06/18/2012 Immunizations Immunization Administration Dates Next Due Influenza TIV (IM) 12/19/2018 MMR 07/20/2018 Family History Medical History Relation Comments Kidney disease Neg Hx Social History Tobacco Use Types Packs/Day Years Used Date Smoking Tobacco: Former Smokeless Tobacco: Never Alcohol Use Standard Drinks/Week Comments Yes 0 (1 standard drink = 0.6 oz pur e alcohol) rare Comments Unknown Sex and Gender Information Value Date Recorded Sex Assigned at Not on file Legal Sex Female 1:46 PM MDT Gender Identity Not on file Sexual Orientation Not on file Last Filed Vital Signs Vital Sign Reading Time Taken Comments Blood Pressure 122/82 01/28/2019 9:20 AM COMMANDING OFFICER GARAGE Pulse 84 01/28/2019 9:20 AM COMMANDING OFFICER GARAGE Temperature 36.2 C (97.1 F) 01/28/2019 9:20 AM COMMANDING OFFICER GARAGE Respiratory Rate - - Oxygen Saturation - - Inhaled Oxygen Concentration - - Weight 98 kg (216 lb) 01/28/2019 9:20 AM COMMANDING OFFICER GARAGE Height 160 cm (5' 3 ) 01/28/2019 9:20 AM COMMANDING OFFICER GARAGE Body Mass Index 38.26 01/28/2019 9:20 AM COMMANDING OFFICER GARAGE Plan of Treatment Health Maintenance Due Date Last Done Comments Pneumococcal PPSV23/PCV13 65 + Years / Low and Medium Risk (1 of 4 - PCV) 01/18/2006 Influenza Vaccine (Season Ended) 2024 12/20/19 19 [place] [address] Care Teams Rejoiner Relationship Specialty Start Date End Date Bao Lyons DO [address] [place] [address] PCP - General Internal Medicine 09/17/18
--- OUTSIDE RECORDS SUMMARY | 2024-07-15 10:30 | XMS_ITS ---
Author Organization [facility] Address [address] [facility] [facility] [address] [place] [address] Care Team Providers Care Consumer Affairs Manager Name Role Phone Devonte Chen Unavailable [phone] MEDICATIONS Medication SIG (Take, Route, Fr equency, Duration) Notes Start Date End Date Status traZODone HCl 50 MG 1 tablet at bedtime Orally Once a day for 90 days 07/02/2024 Active SOCIAL HISTORY Sex Assigned At : Social History Observation Description Sex Assigned At Female Encounters Encounter Location Date Provider Diagnosis [facility] [address] [place] [address] 07/02/2024 Devonte Chen PLAN OF TREATMENT Medication Medication Name Sig Start Date Stop Date Notes traZODone HCl 50 MG 1 tablet at bedtime Orally Once a day for 90 days 07/02/2024 Next Appt Details Provider Name:Devonte Chen , 09/10/2024 02:15:00 PM, [address] [facility] [address], [address], Progress Notes * KIMMY COTTOHDOB:1955 (69 yo F)Acc No.[id number]:07/02/2024 Patient: ЕКАТЕРИНА COTTO :1955 Age:69 Y Sex:Female Address:[address] [place] [address] [place] [address] * Refills Start traZODone HCl Tablet, 50 MG, Orally, 90 Tablet, 1 tablet at bedtime, Once a day, 90 days, Refills=2 * * Date:
--- OUTSIDE RECORDS SUMMARY | 2024-07-15 10:30 | XMS_ITS ---
Author Organization 1 OF Agusto schumacher [facility] Address [address] [facility] [address] [place] [address] Care Team Providers Care Planning Rn Name Role Phone Fidencio French MD Primary Care Provider Unavail able AponteTio frankelie Unavailable [phone] REASON FOR VISIT DFC (Diabetic foot care) Medications Medication SIG (Take, Route, Fr equency, Duration) Notes Start Date End Date Status Trulicity Active amLODIPine Besylate Active Atorvastatin Calcium Active Farxiga Active Losartan Potassium A ctive Calcitriol Active Vitamin D Active Vital Signs Height 62 in 06/28/2024 Weight 205 lbs 06/28/2024 BMI 37.49 kg/m2 06/28/2024 Encounters Encounter Location Date Provider Diagnosis 1 OF Agusto Choudhury [facility] [address] [facility] [address] [place] [address] 06/28/2024 Tammy Aponte Onychodystrophy L60. 3 ; Type 2 diabetes mellitus with other diabetic neurological complication E11.49 and Callus L84 Assessments Encounter Date Diagnosis (ICD Code) Assessment Notes Treatment Notes Treatment Clinical Notes Section Notes 06/28/2024 Onychodystrophy (ICD-10 - L60.3) 06/28/2024 Type 2 diabetes mellitus with other diabetic neurological complication (ICD-10 - E11.49) Considering the associated comorbidities and physical exam findings today, this patient is at substantial risk of developing serious foot complications in the absence of regular and professional palliative foot care. 06/28/2024 Callus (ICD-10 - L84) Plan Of Treatment [...] with any concerns, Reason: Provider Name:Tammy Aponte, 09/06/2024 10:00:00 AM, [address], [address], [place], [address], Procedure Notes * Category Sub-Category Detail Notes PALLIATIVE FOOT CARE: Callus paring: (69541) Le ss than five calluses as noted above reduced with a sterile scalpel blade Dystrophic nail trim (G0127) All dystrop hic nails reduced in length and thickness with curettage of debris from nail margins as needed Progress Notes * Danielle PEDERSENhDOB:1955 (69 yo F)Acc No.[id number]:06/28/2024 Progress Note Patient: Lindsay PRINCE Provider: Melquiades Aponte DPM :1955 A ge:69 Y S ex:Female Date:06/28/2024 Address:[address] [place] [address] Pcp:Fidencio French MD Subjective: * Chief Complaints: * D FC (Diabetic foot care) * HPI: M A assisting with visit:: Chart Prep Nadia marcial. HPI/Rooming: I rshan. Sai morel reason for visit:: Diabetic Foot Care: [age] y/o diabetic female RTO for diabetic foot care. Patient reports no acute issues with nails or calluses today. Reports last HA1c of 5.4, 05/18. * ROS: * MULTI-SYSTEM REVIEW:: Nausea, fever or chills d enies. C urrently dealing with infection, flu or open wound: d enies. A ny change in medications since last visit? d enies. A ny changes in medical history/hospitalizations? d enies. * Medical History: * Surgical History: R T TKR 06/2023 * Hospitalization/Major Diagno stic Procedure: * Family History: Diabetes. * Medications: T akingCalcitriol Vitamin D Farxiga Losartan Potassium amLODIPine Besylate Atorvastatin Calcium Trulicity Medication List reviewed and reconciled with the patientTaking Calcitriol Taking Vitamin D Taking Farxiga Taking Losartan Potassium Taking amLODIPine Besylate Taking Atorvastatin Calcium Taking Trulicity Medication List reviewed and reconciled with the patient Objective: * Vitals: W t:205lbs, Wt-k.99 kg, Ht: 62 in, BMI:37.49Index. * Examination: G eneral Examination: Constitutional / Appearance: N o acute distress , Well nourished, Appropriate personal hygiene. Mental status: C ooperative, Oriented to person, place and time, Mood and affect: normal, Judgement and intellect: normal with appropriate response to questions. Shoes today: t lorraine shoe. DIABETIC FOOT EXAM L ower Extremity Neurological Exam performed:?Yes F ootwear Evaluation performed: Y es L ower Extremity VASCULAR: : Pulses: D P pulse diminished b/l , PT pulse diminished b/l.? Temperature gradient: r elatively warm from proximal to distal, bilateral. Pedal hair: s parse, bilateral. Venous insufficiency edema: M ild, bilateral ankles. Capillary refill at distal toes less than 3 seconds, bilateral. L ower Extremity DERM: : Skin: n o suspicious lesions, no open sores, without interdigital maceration, bilateral. Nails: N ails appear elongated and dystrophic with abnormal shape, periungual debris, subungual hyperkeratosis.. Hyperkeratotic lesions LEFT foot: n o significant hpk lesions noted. Hyperkeratotic lesions RIGHT foot: m edial hallux IPJ.? L ower Extremity NEURO: : General sensation appears i ntact , bilateral. Muscle tone w ithin normal limits , bilateral. Monofilament test (10 gram pressure) E xam of 06/28/2024:?revealed intact sensation to, entire foot, bilateral. Vibration perception: E xam of 06/28/2024: n oted slightly diminished per evaluation with 128Hz tuning fork applied to distal hallux compared to ipsilateral medial malleolus @ bilateral feet . L ower Extremity MSK: : Gait S low, wide-based gait. Foot type: B ilateral lower extremity exhibits pes planus foot type with decreased medial arch. Muscle strength: 5 /5, all 4 quadrants tested, bilateral.? Left lower extremity inspection and palpation: N o palpable masses or nodules noted. Adequate ROM noted to the joints.. Right lower extremity inspection and palpation: N o palpable masses or nodules noted. Adequate ROM noted to the joints. . Foot deformities: B ilateral:, hammertoes. Assessment: * Assessment: 1. O nychodystrophy - L60.3 2 . T ype 2 diabetes mellitus with other diabetic neurological complication - E11.49 (Primary) 3 . C allus - L84 ? Plan: * Treatment: * Procedures: P ALLIATIVE FOOT CARE:: Callus paring: ( [id number]) Less than five calluses as noted above reduced with a sterile scalpel blade. Dystrophic nail trim (G0127) A ll dystrophic nails reduced in length and thickness with curettage of debris from nail margins as needed. * Procedure Codes: 1 1055 TRIM SKIN [id number] TRIMMING DYSTROPHIC NAILS ANY #, Modifiers: 59 * Preventive Medicine: Counseling: C are goal follow-up plan: BMI counseling provided to patient:?Lifestyle education Screenings: F ALL RISK SCREENING Fall Risk Assessment: N o falls in the past year * Follow Up: 1 0-12 weeks or contact office PRN with any concerns * Images: * Sign off status: Completed true * Provider: Melquiades Aponte DPM Date: 0 06/28/[address]/Joy on: 0 07/15/2024 10:29 AM CDT History and Physical Notes * HPI (History of Present Illness) Category Sub-Category Detail Notes Category Not es Primary reason for visit: Diabetic Foot Care: 69 y/o diabetic female RTO for diabetic foot care. Patient reports no acute issues with nails or calluses today. Reports last HA1c of 5.4, 05/18 MA assisting with visit: HPI/Rooming: [facility] Chart Prep Dorota Examination Category Sub-Category Detail Notes Category Not es General Examination Mental status: Cooperative, Oriented to person, place and time, Mood and affect: normal, Judgement and intellect: normal with appropriate response to questions Shoes today: tennis shoe Constitutional / Appearance: No acute di stress , Well nourished, Appropriate personal hygiene DIABETIC FOOT EXAM Lower Extremity Neurological Exam performed:: Yes Footwear Evaluation performed:: Yes Lower Extremity VASCULAR: Venous insufficiency edema: Mild, bilateral ankles Pulses: DP pulse diminished b/l , PT pulse diminished b/l Temperature gradient: relatively warm fr om proximal to distal, bilateral Pedal hair: sparse, bilateral Capillary refill at distal toes less nithin n 3 seconds, bilateral Lower Extremity NEURO: Monofilament test (10 gram pressure) Exam of 06/28/2024: revealed intact sensation to, entire foot, bilateral Vibration perception: Exam of 06/28/2024 : noted slightly diminished per evaluation with 128Hz tuning fork applied to distal hallux compared to ipsilateral medial malleolus @ bilateral feet General sensation appears intact , bilat eral Muscle tone within normal limits , bilateral Lower Extremity MSK: Muscle strength: 5/5, all 4 quadr ants tested, bilateral Foot type: Bilateral lower extr emity exhibits pes planus foot type with decreased [...]
--- OUTSIDE RECORDS SUMMARY | 2024-07-15 10:30 | XMS_ITS | Referral Summary ---
Author Organization [facility] Address [address] [place] [address] Care Team Providers Care Lead Application Architect Name Role Phone Dahlia Mednez Fe LOYA Unavailable [phone] Amina Mccray MERCHANDISE FLOW MANAGER Primary Care Provider [phone] Encounters Date Type Department Care Team Description 07/11/2024 Results Follow-Up [facility] Convenient Care at [address] [address] Padmini Ray NP 07/09/2024 2:11 AM CDT - 07/09/2024 11:59 PM CDT Hospital Encounter [address] [address] Urinary frequency Discharge Disposition: Discharge to home or self care 07/09/2024 Results Follow-Up [facility] at [address] [address] Padmini Ray NP 07/09/2024 2:20 PM CDT Ancillary Procedure [facility] Imaging at [address] [address] Acute cough 07/09/2024 2:15 PM CDT Office Visit [facility] at [address] [address] Padmini Ray NP Lower respiratory infection (e.g., bronchitis, pneumonia, pneumonitis, pulmonitis) (Primary Dx); Urinary frequency; Glucosuria 05/25/2024 11:45 AM HANSARD REPORTER Office Visit [facility] Pulmonology [address] [facility] [address] [place] [address] Jamila Latham MD Obstructive sleep apnea (Primary Dx); Psychophysiological insomnia; Nonsmoker; BMI 37.0-37.9, adult 05/17/2024 9:57 AM HANSARD REPORTER - 05/17/2024 11:59 PM HANSARD REPORTER Hospital Encounter [facility] and [facility] CT [address] [place] [address] Hiatal hernia Discharge Disposition: Discharge to home or self care 05/17/2024 9:56 AM HANSARD REPORTER - 05/17/2024 11:59 PM HANSARD REPORTER Hospital Encounter [address] [address] Atherosclerosis of artery of lower extremity Discharge Disposition: Discharge to home or self care from Last 3 Months Allergies Active Allergy [...] (500 mg total) by mouth 10/24/19 24 025 Discontinu ed(Therapy completed) penciclovir (DENAVIR) 1 % [...] 0.6 oz pur e alcohol) [facility] Utilities Answer Date Recorded In the past 12 months has [employer], [employer], or water [employer] threatened to shut off services in your [...] How often do you attend chur or presybeterian services? More than 4 times [...] on file Legal Sex Female 5:35 PM HANSARD REPORTER Gender Identity Not on file Sexual Orientation [...] (205 lb 9.6 oz) 05/25/2024 11:54 AM HANSARD REPORTER Height 157.5 cm (5' 2 ) 05/25/2024 11:54 AM HANSARD REPORTER Body Mass Index 37.6 05/25/2024 11:54 AM HANSARD REPORTER Plan of Treatment Not on file Medical Devices Implanted Type Area Medical Videographer Device Identifier Shelf Expiration Date Model / Serial / Lot [employer] Attune Cruciate Retain Cementless Knee Right 5 Narrow Component [id number] - [id number] Implanted:Qty: 1 on 07/01/2023 by Kamar Gandara DO at [facility] Right: Knee [employer] [id number] 11/22/2031 [id number] / / [id number] [employer] Attune Fb Tib Base Sz 4 Por [id number] - [id number] Implanted:Qty: 1 on 07/01/2023 by Kamar Gandara DO at [facility] Right: Knee [employer] [id number] 12/22/2031 [id number] / / [id number] [employer] Insert Tibial Knee Fixed Rm Posterior Stabilized Attune 5mm Size 5 Polyethylene [id number] - [id number] Implanted:Qty: 1 on 07/01/2023 by Kamar Gandara DO at [facility] Right: Knee [employer] [id number] 03/23/2031 [id number] / / [id number] Procedures Procedure Name Priority [...] Read Routine (OP Routine) 05/17/2024 10:18 AM HANSARD REPORTER Atherosclerosis of artery of lower extremity CT ABDOMEN PELVIS WO CONTRAST Schedule Routine, Read Routine (OP Routine) 05/17/2024 10:17 AM HANSARD REPORTER Hiatal hernia SCREENING MAMMOGRAM BILATERAL W PREM [...] signed by Kwesi DENNEY T: Report ID: [id number] Reading Location: [id number] Procedure Note Kwesi Pittman MD - 07/09/2024 [...] signed by Kwesi DENNEY T: Report ID: [id number] Reading Location: [id number] Padmini Ray MERCHANDISE FLOW MANAGER IMG XR PROCEDURES Final Result * POCT glucose (07/09/2024 2:22 PM CDT) Pathologist [facility] Glucose Blood, POC 150 mg/dL Comment:Just ate at [employer]. Blood 07/09/2024 2:22 PM CDT Padmini Ray NP POINT OF CARE TEST ORDERABLES Final Result * Urine culture Urine, clean voided (07/09/2024 2:11 PM CDT) Report Final Report: Less than 100,000 colonies/mL (clinically insignificant growth based on current clinical standards) Comment:Testing performed by : [facility], [address] [place]., [address] Organism (CLINICALLY INSIGNIFICANT GROWTH [facility] Urine, clean voided 07/09/2024 2:11 PM CDT 07/10/2024 5:35 AM CDT Narrative MICHELA - 07/11/2024 12:44 PM CDT Testing performed by [facility] Microbiology Laboratory ([phone]) Padmini Ray NP LAB MICROBIOLOGY - GENERAL ORD ERABLES Final Result MICHELA [id number] [place] [address] * (ABNORMAL) POCT urinalysis dipstick (07/09/2024 2:10 PM CDT) Pathologist [facility] Color, Urine, POC Yellow Clarity, ur, POC Clear Clear Glucose, ur, POC 1000.(A) Negative MG/DL Bilirubin, ur, POC Negative Negative, Small, Moderate, Large Ketones, ur, POC Trace(A) Negative Specific [place], POC 1.020 1.003 - 1.030 Blood, ur, POC Negative Negative pH, ur, POC 6.5 5.0 - 8.0 Protein, ur, POC 100.(A) Negative Urobilinogen, urine, POC 0.2 0.2 - 1.0 mg/dL Nitrite, ur, POC Negative Negative Leukocytes, ur, POC Negative Negative Lot Number [id number] Urine 07/09/2024 2:10 PM CDT Padmini Ray NP POINT OF CARE TEST ORDERABLES Final Result * CT Chest WO Contrast (05/17/2024 10:18 AM HANSARD REPORTER) Anatomical Region Laterality Modality Body N/A Computed Tomogra phy 05/21/2024 8:03 AM HANSARD REPORTER Narrative 05/21/2024 8:11 AM HANSARD REPORTER EXAM DESCRIPTION: CT CHEST WO CONTRAST REASON [...] Recent guidelines by the Fleischner Society (Radiology 850656,2017) divides patient into low vs. high risk [...] immunosuppression, or patients with known primary cancer. http://pubs.rsna.org/doi/pdf/10.1148/radiol.0913269944 THIS IS AN ELECTRONICALLY VERIFIED FINAL REPORT 05/21/2024 8:11 AM - Electronically signed by Kamar Maldonado M.D. MAGDA T: Report ID: [id number] Reading Location: [place] [address] Procedure Note Kamar Maldonado MD - 05/21/2024 [...] Recent guidelines by the Fleischner Society (Radiology 175511,2017)divides patient into low vs. high risk (for [...] immunosuppression, or patients with known primary cancer. http://pubs.rsna.org/doi/pdf/10.1148/radiol.2664158637 THIS IS AN ELECTRONICALLY VERIFIED FINAL REPORT 05/21/2024 8:11 AM - Electronically signed by Kamar MAN T: Report ID: [id number] Reading Location: [place] [address] us Amina Mccray MERCHANDISE FLOW MANAGER IMG CT PROCEDURES Final R esult * CT Abdomen Pelvis WO Contrast (05/17/2024 10:17 AM HANSARD REPORTER) Anatomical Region Laterality Modality Body N/A Computed Tomogra phy 05/21/2024 12:0 5 PM HANSARD REPORTER Narrative 05/21/2024 12:15 PM HANSARD REPORTER EXAM DESCRIPTION: CT ABDOMEN PELVIS WO CONTRAST [...] Sushila Quintero M.D. TW T: Report ID: [id number] Reading Location: [id number] Procedure Note Sushila Quintero MD - 02/28/2025 EXAM DESCRIPTION: CT ABDOMEN PELVIS WO CONTRAST [...] Sushila Quintero M.D. TW T: Report ID: [id number] Reading Location: [place] [address] Amina Mccray NP IMG CT PROCEDURES Final [...] studies performed at [facility] on 01/03/2021, 01/09/2022 and 06/19/2022. [...] studies performed at [facility] on 01/03/2021, 01/09/2022 and 06/19/2022. [...] Inclusion of Race in Diagnosing Kidney Disease, NICKIESN 2020). The CKD-EPI equation should not be used for patients with unstable renal function and has not been validated in children and those over 70. Current interpretive data was last reviewed 2021. [facility], [address] [place] [address], [place]., [address] Blood 07/07/2023 8:36 AM CDT 07/07/2023 9:00 AM CDT Robb Lr MD LAB BLOOD ORDERABLES Final R esult Performing Organization Address [facility] [address] [facility] de Phone Number MICHELA [address] [place] [address] * (ABNORMAL) Hemoglobin A1c (06/11/2023 9:28 AM CDT) Hgb A1C 6.3(H) 4.0 - 5.6 % Estimated Average Glucose 134 mg/dL MICHELA Comment: The ADA recommends reporting an estimated Average Glucose (eAG) with all Hemoglobin A1c results using the equation derived from a study of 507 normal and diabetic adults. Minority populations were underrepresented and children were not included. (Diabetes Care 31:6601-4320, 2008). The eAG is not equivalent to a fasting glucose. Blood 06/11/2023 9:28 AM CDT 06/11/2023 9:40 AM CDT Kamar Gandara DO LAB BLOOD ORDERABLES Final Res ult Performing Organization Address [facility] [address]/[facility] Co de Phone Number IS[address] [place] [address] * Dexa Axial Skeleton Bone Density 1 or 2 Site (09/23/2022 10:06 AM CDT) Anatomical Region Laterality Modality Body N/A Mammography 09/23/2022 3:51 PM CDT Narrative 09/23/2022 3:52 PM CDT EXAM DESCRIPTION: DEXA AXIAL SKELETON BONE DENSITY 1 OR MORE SITES REASON FOR STUDY: 67 y/o year old F with given history of: Postmenopausal status. Patient takes vitamin-D and calcium. History of hysterectomy. Medical Videographer/Model: Hologic Horizon A (S/N [id number]) CLINICAL INFORMATION: Current height: 62 inches Maximum [...] Sushila Quintero M.D. TW: TW Report ID: [id number] Reading Location: [place] [address] Procedure Note Sushila Quintero MD - 09/23/2022 EXAM DESCRIPTION: DEXA AXIAL SKELETON BONE DENSITY 1 OR MORE SITES REASON FOR STUDY: 67 y/o year old F with given history of:Postmenopausal status. Patient takes vitamin-D and calcium. History of hysterectomy. Medical Videographer/Model: Hologic Horizon A (S/N [id number]) CLINICAL INFORMATION: Current height: 62 inches Maximum [...] Sushila Quintero M.D. TW: TANYA Report ID: [id number] Reading Location: [id number] us Amina Mccray NP IMG DXA PROCEDURES Final Result * Serum Hepatitis C ab (06/18/2012 10:52 AM CDT) HCV ab Negative NEG HISTORICAL RESULTS Serum 06/18/2012 10:5 2 AM CDT Narrative HISTORICAL RESULTS - 06/19/2012 4:50 AM CDT LAB Frequency Standing Order? No Expiration Date: Interpretive Data If confirmation is required, call Laboratory Customer Service to request sample to be sent to [facility] for Hepatitis C Virus (HCV) RNA Detection and Quantitation by Real-Time Reverse Guzzler Builder-PCR (RT-PCR). Current interpretive data was last revised on 2011 us Rommel Vaughan DO LAB BLOOD ORDERABLES Final Resul t HISTORICAL RESULTS from Last 3 Months or Most Recently Relevant to Health Maintenance Insurance [facility] MED[facility] ADV[facility] AD[facility] Advance Directives For more information, please contact: [phone] * Full Code (Latest Code Status on File) Date Activated Date Inactivated Comments 07/01/2023 3:35 PM 07/03/2023 6:36 PM Care Teams Lead Application Architect Relationship Specialty Start Date End Date Amina Mccray NP [address] [place] [address] PCP - General Nurse Practitioner 05/06/24 Dahlia Mendez PA [address] [facility] [place] [address] Orthopedic Surgery 07/01/23
--- OUTSIDE RECORDS SUMMARY | 2024-07-15 10:30 | XMS_ITS | Encounter Summary ---
Author Organization [facility] Healthcare Address [address] [place] [address] Care Team Providers Care Director Of Religious Activities Name Role Phone SindiDahlia damian Fe LOYA Unavailable [phone] Amina Mccray VENDING MACHINE REPAIRER Primary Care Provider [phone] Encounter Details Date Type Department Care Team ([facility] Contact Info) Description 07/11/2024 Results Follow-Up [facility] Medical Group Convenient Care at [address] [address] Padmini Ray NP [address] [place] [address] [address] [place] [address] Social History Tobacco Use Types Packs/Day Years Used Date Smoking Tobacco: Never Passive Smoke Exposure: Past Smokeless Tobacco: Never Alcohol Use Standard Drinks/Week Comments No 0 (1 standard drink = 0.6 oz pur e alcohol) [facility] Utilities Answer Date Recorded In the past 12 months has [employer] gas, oil, or water [employer] threatened to shut off services in your [...] often do you attend caro center or adventism services? More than 4 times per year 07/02/2023 Do you belong to any clubs o r organizations such as episcopal groups, unions, fraternal or athletic groups, or [...] file Legal Sex Female 5:35 PM HEALTH CARE MANAGER Gender Identity Not on file Sexual Orientation Not on file documented as of this encounter Miscellaneous Notes * Result Encounter Note - May Acosta LPN - 07/14/2024 4:42 PM CDT Notified pt of their results and follow up instructions. Pt verbalized understanding. documented in this encounter Plan of Treatment Not on file documented as of this encounter Visit Diagnoses Not on filedocumented in this encounter Care Teams Director Of Religious Activities Relationship Specialty Start Date End Date Amina Mccray NP [address] [place] [address] PCP - General Nurse Practitioner 05/06/24 Dahlia Mendez PA [address] [facility] [address] [place] [address] [place] [id number] Orthopedic Surgery 07/01/23 documented as of this encounter
--- OUTSIDE RECORDS SUMMARY | 2024-07-15 10:31 | XMS_ITS | Clinical Summary ---
Author Organization [facility] Address [address] [place] [address] Care Team Providers Care Indigo Mixer Name Role Phone Unavailable Primary Care Provider [...] Immunochemical Fecal Occult Blood 01/18/2006 Mammogram 01/18/2006 Pneumococcal Immunization (50+ years) (1 of 1 - PCV) 01/18/2006 Zoster Immunization (2 of 2) 05/29/2019 04/03/2019 Influenza Immunization (#1) 2023 09/0 11/2019, 02/03/2018, 01/28/2018, Additional history exists SARS-COV-2 Immunization (2023-25 season) 2023 Respiratory Syncytial Virus (RSV) Immunization (Adult) (1 - 1-dose 75+ series) 01/18/2031 Hepatitis B Immunization Aged Out No longer eligible based on patient's age to complete this topic Meningococcal Immunization (ACWY) Aged Out No longer eligible based on patient's age to complete this topic Rotavirus Immunization Aged Out No lo nger eligible based on patient's age to complete this topic
--- OUTSIDE RECORDS SUMMARY | 2024-07-15 10:31 | XMS_ITS ---
Author Organization [facility] Address [address] [facility] [address] [place] [address] Care Team Providers Care Processing Lead Name Role Phone Gustavo Devonte Unavailable [phone] MEDICATIONS Medication SIG (Take, Route, Frequency, Duration) Notes Start Date End Date Status Farxiga 10 MG 1 tablet Orally Once a day for 90 04/07/2024 01/02/2025 Active Calcitriol 0.25 MCG Take 1 capsule by mo uth once daily for 90 Active Vitamin D (Ergocalciferol) 1.25 MG (69774 UT) Take 1 capsule by mouth once a week for 91 Active SOCIAL HISTORY Sex Assigned At : Social History Observation Description Sex Assigned At Female Encounters Encounter Location Date Provider Diagnosis [facility] [address] [place] [address] 07/02/2024 Devonte Chen Chronic kidney disea se, stage 3b N18.32 ; Type 2 diabetes mellitus with hyperglycemia E11.65 ; Essential (primary) hypertension I10 ; Obesity, unspecified E66.9 ; Lymphedema, not elsewhere classified I89.0 ; Anemia, unspecified D64.9 ; Primary generalized (osteo)arthritis M15.0 ; Renal osteodystrophy N25.0 ; Secondary hyperparathyroidism of renal origin N25.81 and Cyst of kidney, acquired N28.1 ASSESSMENTS Encounter Date Diagnosis Assessment Notes Treatment Notes Treatment Clinical Notes Section Notes 07/02/2024 Chronic kidney disea se, stage 3b (ICD-10 - N18.32) 07/02/2024 Type 2 diabetes mellitus with hyperglycemia (ICD-10 - E11.65) 07/02/2024 Essential (primary) hypertension (ICD-10 - I10) 07/02/2024 Obesity, unspecified (ICD-10 - E66.9) 07/02/2024 Lymphedema, not elsewhere classified (ICD-10 - I89.0) 07/02/2024 Anemia, unspecified (ICD-10 - D64.9) 07/02/2024 Primary generalized (osteo)arthritis (ICD-10 - M15.0) 07/02/2024 Renal osteodystrophy (ICD-10 - N25.0) 07/02/2024 Secondary hyperparathyroidism of renal origin (ICD-10 - N25.81) 07/02/2024 Cyst of kidney, acquired (ICD-10 - N28.1) PLAN OF TREATMENT Next Appt Details Provider Name:Devonte Gustavo , 09/10/2024 02:15:00 PM, [address] [facility], [facility] [address], [place], [address], Progress Notes * KIMMY COTTOHDOB:1955 (69 yo F)Acc No.[id number]:07/02/2024 Progress Notes Patient: ЕКАТЕРИНА COTTO Provider: MD MAURILIO, F.A.C.P, F.A.S.N. :1955 Age:69 Y Sex:Female Date:07/02/2024 Address:[address] [place], [place] [id number] Subjective: * Chief Complaints: * * Medical History: * Medications: Taking Vitamin D (Ergocalciferol) 1.25 MG (71448 UT) Capsule Take 1 capsule by mouth once a week , Taking Farxiga 10 MG Tablet 1 tablet Orally Once a day , stop date 01/02/2025, Taking Calcitriol 0.25 MCG Capsule Take 1 capsule by mouth once daily Objective: Assessment: * Assessment: 1. Chronic kidney [...] Secondary hyperparathyroidism of renal origin - N25.81 10. Cyst of kidney, acquired - N28.1 Plan: * Treatment: * Billing Information: * Visit Code: [id number] Office Visit, Est Pt., Level 4. * Procedure Codes: * Sign off status: Pending * Provider: MD MAURILIO, F.A.C.P, F.A.S.N. Date: 07/02/2024
--- OUTSIDE RECORDS SUMMARY | 2024-07-15 10:31 | XMS_ITS | CONTINUITY OF CARE DOCUMENT ---
Author Name brit perea Address Unknown Organization [facility] Address [address] [address] [place] [address] Phone [phone] Care Team Providers Care Engine House Helper Name Role Phone Gustavo WANG, May Unavailable [phone] Fidencio French MD Unavailable Fidencio French MD Unavailable PROBLEMS Condition Status Date Provider Notes Mitral regurgitation, mild t o mod, ef nl, 10/2023 active Adan Ahmedzai CKD active Adan Ahmedzai Hyperlipidemia active Adan Ahmedzai Hypertension active Adan Ahmedzai Diabetes mellitus, type 2 active Aadn Mercado benitez Shortness of breath active Adan Lam Family hx of heart disease active Adan james ESTELA--on cpap active Adan Mercadozai ENCOUNTERS Date Type Provider Location Encounter Diag nosis - In-person encounter Office Visit May Chen MD [place] [facility] ESTELA--on cpapFamily hx of heart diseaseShortness of breath VITAL SIGNS Date Observation Value Provider Body Mass Index (Ratio) 36.21 kg/m2 Elmo Chen MD blood pressure, cuff size regular Kusum Paul blood pressure, diastolic 79 mm[Hg] Kusum Paul blood pressure, systolic 117 mm[Hg] [facility] in [employer] [facility] respiratory rate E&M 16 /min [facility] pulse rate 84 /min [facility] oxygen saturation, oximetry 96 % [facility] weight E&M 198 [lb_av] [facility] height E&M 62 [in_i] 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
--- OUTSIDE RECORDS SUMMARY | 2024-07-15 10:31 | XMS_ITS | Data Portability ---
Author Organization [place] - [facility] Pump!, Main Office Address [address] [place] [address] Assessment Encounter Date Assessment Date Assessment LastModified [...] recorded. Lab lipid panel, serum 2023 [email or web address] [facility] (Lab), [address] [place], [address], 4 08:42:50 Referral cardiologis t referral 2023 024 [email or web address] [place], [address] [facility], [facility] [address], [address], 4 08:34:10 Procedures colonoscopy screening (PROC) 2023 [email or web address] Chaim sterling MD, [address] [facility] [address], [facility] [address], [place], [address], 4 08:43:00 Surgeries None recorded. Imaging None recorded. Medication Orders valacyclovi r 500 mg tablet 2023 [facility] [address], [address] [facility], [place], [address], 4 14:54:21 penciclovir 1 % topical cream 2023 024 [facility], [address], [place], [address], 14:54:20 Patient TargetsNo targets recorded. Patient InstructionsNo instructions recorded. 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 Page 1 [facility] [address] [place] [address] [phone] Patien t Name: KIMMY PEDERSEN Access ion #: [id number] Sex: F : 1954 1 Dictat ed By: Sarah Branham Attend ing Physic robina: JOSELYN VILLANUEVA Physic robina: ROSA FRENCH Exam Date: 2023 06:48 AM Exam Name: NM MYOCAR D SPECT MULT Admitt ing Diagno sis(es ): Electr onical ly Signed by: Sarah Branham at 2023 12:43: 33 PM Page 2 [email or web address] [facility] (Imaging) [address] [place], [address], 06/03/2023 07:49:07 10/24/1910/23/2023 MAMMO , scree aguila, [...] Time Closed fracture of metatarsa l bone 78753527 Active Not Available [facility] 3 06:34:53 Fracture of lower leg 041946082 Active Not Available [facility] 3 06:34:53 Tibialis tendiniti s 48574958 Completed 09/10/2022 Nisha schumacher, RMA null, [place] [facility] [employer] [facility] 3 14:31:46 Hyperlipi demia 83876107 Active 2022 Not Available [facility] 3 06:34:53 Essential hypertens ion 72127561 Active 2022 Not Available [facility] 3 06:34:53 Diabetes mellitus 31144202 Active 2022 Not Available [facility] 3 06:34:53 Gastroeso phageal reflux disease 602226664 Active 2022 Not Available [facility] 3 06:34:53 Sleep apnea 36122444 Active 2022 Not Available [facility] 3 06:34:53 Obesity 553871027 Active 2022 Not Available [facility] 3 06:34:53 Lymphedem a of lower extremity 714290159 Active 2022 Not Available [facility] 3 06:34:53 Tear of meniscus of knee 730764253 Active 2022 Not Available [facility] 3 06:34:53 Anemia 801710417 Active 2022 Not Available [facility] 3 06:34:53 Mass of right breast 97757489910 799925 Active 2022 Not Available [facility] 3 06:34:53 Kidney disease 20781150 Active 2022 Not Available [facility] 3 06:34:53 Type 2 diabetes mellitus without complicat ion 138652351 Active 2022 Not Available [facility] 3 06:34:53 Constipat ion 82563448 Active 2022 MINH Escalante null, [place] [facility] 3 08:38:26 Chronic constipat ion 432403253 Active 2023 Idalia Hartley MD [address] [facility], [address] [address], [place], [address] , [place] [facility] 4 16:09:47 Dyspnea on exertion 19794268 Active 2023 Fidencio French MD [address] [facility], [facility] [address], [place], [address] , [place] [facility] [employer] 4 12:30:58 Osteoarth ritis 062751141 Active 2023 Zulay Washington NP [address] [facility], [address] [address], [place], [address] , [place] [facility] [employer] 4 13:59:06 Palpitati ons 38757556 Active 2023 Fidencio French MD [address] [facility], [address] [address], [place], [address] , [facility] 4 16:15:17 Herpes simplex 73259534 Active 2023 Zulay Washington NP [address] [facility], [address] [address], [place], [address] , [place] [facility] [employer] 4 14:48:51 Problem Notes None recorded. Procedures Surgical History Date Name Laterality Status Provider Name and Address Organization Details Recorded Time excision of ruptured ectopic tubal completed MINH Berrios [place] [facility] [place] [facility] 06/06/2022 16:16:16 Tubal Ligation completed MINH Berrios [place] [facility] 06/06/2022 16:16:28 partial hysterectomy completed MINH Berrios [place] [facility] [place] [facility] 06/06/2022 16:16:50 biopsy of breast completed MINH Berrios [place] [facility] 06/06/2022 16:17:30 Cyst Removal completed MINH Berrios [place] [facility] 06/06/2022 16:17:49 Imaging Results Imaging Date Name Status LastModified by Organization Details LastModified Time 05/20/2023 PET, myocardial perfusion, multiple completed [email or web address] [facility] (Imaging) [address], [place], [address], 06/03/2023 07:49:07 10/23/2023 MAMMO, screening, digital, bilateral [...] DateTime 03/05/202 4 154.94 cm 39.7 kg/m2 47674.4 g 98.6 [degF] 80 /min 94 % 94 % 128 mm[Hg] 76 mm[Hg] Mariah connor [facility] 4 12:23:35 Date Recorded Body height Body mass index (BMI) Body weight Body temperature Heart rate Oxygen saturation Oxygen saturation in Arterial blood by Pulse oximetry Systolic blood pressure Diastolic blood pressure Provider Name and Address Organization Details Last Updated DateTime 4 154.94 cm 38.5 kg/m2 11085.8 4 g 99.1 [degF] 84 /min 94 % 94 % 150 mm[Hg] 90 mm[Hg] Mariah connor [facility] 4 14:06:25 Date Recorded Body height Body mass index (BMI) Body weight Body temperature Oxygen saturation Oxygen saturation in Arterial blood by Pulse oximetry Heart rate Systolic blood pressure Diastolic blood pressure Provider Name and Address Organization Details Last Updated DateTime 4 154.94 cm 38.5 kg/m2 74864.8 4 g 97.7 [degF] 98 % 98 % 83 /min 130 mm[Hg] 80 mm[Hg] Nisha vinson [employer] [facility] 4 12:02:17 Date Recorded Body height Body mass index (BMI) Body weight Body temperature Heart rate Oxygen saturation Oxygen saturation in Arterial blood by Pulse oximetry Systolic blood pressure Diastolic blood pressure Provider Name and Address Organization Details Last Updated DateTime 4 154.94 cm 36.8 kg/m2 89295.5 1 g 97.8 [degF] 88 /min 98 % 98 % 130 mm[Hg] 84 mm[Hg] Nisha Guillen alisson [employer] [facility] 4 15:30:07 Date Recorded Body height Body mass index (BMI) Body weight Body temperature Heart rate Oxygen saturation Oxygen saturation in Arterial blood by Pulse oximetry Systolic blood pressure Diastolic blood pressure Provider Name and Address Organization Details Last Updated DateTime 4 154.94 cm 37 kg/m2 02111.1 g 98.3 [degF] 80 /min 99 % 99 % 128 mm[Hg] 78 mm[Hg] Ada Carter [employer] 14:33:31 Social History Question Answer Notes LastModified by Organizat ion Details LastModified Time Tobacco Smoking Status Former Smoker Nisha Dsouzacandace, MINH tate, [place] [employer] 06/06/2022 16:11:37 Do You Have An Advance [...] Or The Highest Degree You Have Received? [id number] Information not available 06/06/2022 Have There Been [...] Anxious, Or Unable To Sleep At Night)? [id number] Worried About Her Health Information not available [...] Diagnosis/Indication Diagnosis SNOMED-CT Code Diagnosis ICD10 Code Diagnosis Note [id number] Fidencio French MD [facility] Internal Med [address] [place] [address] 06/06/2022 15:34:38 06/06/2022 17:26:13 Adult health examination 907523009 Z00.00 Colonoscop y- 2016 - Dr. Pino Peterson onMammogrmarlys m- 2DEX A- scheduled 08/2022FLU- 2Pneumo vax- Has had bothShingl e vacc- [facility] Diabetes mellitus 748118 09 E11.9 under control Hyperlipidemia 03094503 E78.5 labs at endo Essential hypertension 30223914 I10 under control Gastroesop hageal reflux disease 054167063 K21.9 otc Sleep apnea 60302363 G47 .30 cpap Obesity 223301787 E66.9 advised to lose Lymphedema of lower extremity 757820216 I89.[address] abd to r/o any mass pressing on the blood vessels Tear of me niscus of knee 207164912 S83.206A seen ortho Anemia 864694019 D64.9 nl labs [id number] Fidencio French MD [facility] Internal Med [address] [place] [address] 09/10/2022 14:28:38 09/10/2022 15:42:04 Diabetes mellitus 20448635 E11.9 under control Hyperlipidemia 01543195 E78.5 labs good Essential hypertension 63276488 I10 under control Gastroesop hageal reflux disease 639079379 K21.9 otc Sleep apnea 36208174 G47 .30 cpap Obesity 415927727 E66.9 advised to lose more Lymphedema of lower extremity 705291759 I89.[address] abd in the past Tear of me niscus of knee 721419721 S83.206A seen ortho Anemia 882134367 D64.9 nl labs Adult [facility] th examination 562134153 Z00.00 Colonoscop y- 2016 - Dr. Pino Vigil m- EX A- scheduled 09/23/2022 @ [facility]- [address] [place] [address] vax- Has had bothShingl e vacc- Has had 2 [facility]- up to date [id number] Fidencio French MD [facility] Internal Med [address] [place] [address] 01/14/2023 11:55:20 01/14/2023 12:54:15 Diabetes mellitus 01458004 E11.9 under control Hyperlipidemia 05387918 E78.5 under control Essential hypertension 18079111 I10 under control Gastroesop hageal reflux disease 531509310 K21.9 otc Sleep apnea 82773383 G47 .30 cpap Obesity 118406239 E66.9 advised to lose more Lymphedema of lower extremity 970723347 I89.0 using compressio ns Tear of me niscus of knee 705237854 S83.206A seen ortho Anemia 845100468 D64.9 nl labs Adult [facility] th examination 398771453 Z00.00 Colonoscop y- 2016 - Dr. Pino Vigil m- 06/19/22DE XA- 09/23/22FL U- [facility]- Has had bothShingl e vacc- Has had 2 [facility]- up to date Kidney disease 56004286 N08 seeing nephrology [id number] Idalia Hartley MD [facility] General Surgery [address] [place] [address] 04/09/2023 14:36:27 04/09/2023 16:02:39 Screening for malignant neoplasm of colon 285055949 Z12.11 Chronic constipation 236 335454 K59.09 WOULD BENEFIT FROM RESTARTING LINZESS 145 MCG /D [id number] Fidencio French MD S_[facility] Internal Med [address] [facility] [place] [address] 04/23/2023 11:48:59 04/23/2023 12:36:43 Dyspnea on exertion 72832343 R06.09 risks of CAD, has abn EKG Kidney disease 16316638 N08 seeing nephrology , GFR 47 [id number] Fidencio French MD [facility] Internal Med [facility] [address] [facility] [place] [address] 05/16/2023 11:52:49 05/16/2023 12:32:55 Diabetes mellitus 95436260 E11.9 under control Hyperlipidemia 52314231 E78.5 under control Essential hypertension 70102891 I10 under control Gastroesop hageal reflux disease 862411016 K21.9 otc Sleep apnea 58532691 G47 .30 cpap Obesity 697854519 E66.9 advised to lose more Lymphedema of lower extremity 605372714 I89.0 using compressio ns Tear of me niscus of knee 155621791 S83.206A to get surgery Anemia 197385188 D64.9 nl labs Adult heal th examination 335570563 Z00.00 Colonoscop y- 2016 - Dr. Pino Vigil m- 06/19/22DE XA- 09/23/22FL U- 12/2022- [facility] deptPneumo vax- Has had bothShingl e vacc- [facility] to date Kidney disease 42609939 N08 GFR 27 Dyspnea on exertion 6084 5006 R06.09 risks of CAD, has abn EKG, stress test not done yet [id number] Zulay Washington NP S[facility] Internal Med [address] [facility] [place] [address] 05/27/2023 11:52:05 05/27/2023 12:53:35 Osteoarthritis 451472590 M19.90 Mr. Lindsay Pedersen has severe arthritis in both of her knees. She has been using a cane to assist her in walking but recently her pain has been worse. She is seeing an orthopedic doctor for work up for knee replacemen t. In the mean time her mobilitiy has been significan tly limited because of her pain. The pain has also caused her gait to worsen and she is at an increased risk for falls. Having a wheeled, seated walker with brakes will significan tly improve her ADLs by allowing her to get from room to room more easily. She will be able to ambulate more freely and be able to get to the bathroom for toileting, the kitchen for meals, and the living room to visit with family. She has sufficient cognitive function to use a wheeled walker as well as upper arm strength to properly use the walker. Having the walker will sufficient ly resolve her mobility limitation s that are no longer resolved with the use of a cane. She is also in need of shower bench that will allow her to sit outside of the bath and maneuver her legs over the tub wall and slide into the shower so that she can properly bathe. [id number] Zulay Washington NP [facility] Internal Med [facility] [address] [facility] [place] [address] 06/20/2023 14:00:50 06/20/2023 14:16:52 [id number] Zulay Washington NP [facility] Internal [facility] [address] [facility] [place] [address] 06/27/2023 11:43:01 06/27/2023 14:00:21 Osteoarthritis 646117546 M19.90 Mr. Lindsay Pedersen has severe arthritis in both of her knees. She has been using a cane to assist her in walking but recently her pain has been worse. She is seeing an orthopedic doctor for work up for knee replacemen t. In the mean time her mobility has been significan tly limited because of her pain. The pain has also caused her gait to worsen and she is at an increased risk for falls.She is here for surgical clearance today, The labs and xrays and ecg were all reviewed today. She is low risk for surgical complicati on. She states that they told her that she is going to be a spinal anesthesia but the paperwork from them is marked for general anesthesia .She was told the morning of surgery to only take her amlodipine and no other meds. Type 2 orville betes mellitus without complication 084627569 E11.9 Essential hypertension 29869865 I10 spoke to surgical center, she was instructed to only take the amlodopine the morning of surgery. [id number] Fidencio French MD [facility] Internal Med [address] [place] [address] 10/14/2023 15:17:14 10/14/2023 16:29:18 Diabetes mellitus 12642520 E11.9 under control Hyperlipidemia 91566171 E78.5 under control Essential hypertension 95942319 I10 under control Gastroesop hageal reflux disease 302637777 K21.9 otc Sleep apnea 16751351 G47 .30 cpap Obesity 744702757 E66.9 advised to lose Lymphedema of lower extremity 801527263 I89.0 using compressio ns Anemia 457642855 D64.9 IMPROVED Adult heal th examination 759265120 Z00.00 Colonoscop y- 2016 - Dr. Pino Vigil m- 06/19/22DE XA- 09/23/22FL U- 12/2022- [facility] vax- Has had bothRenecelinel e vacc- [facility] to date Kidney disease 20986877 N08 GFR improving Screening mammography 24 464289 Z12.31 in 11/14 Screening for malignant neoplasm of colon 691048210 Z12.11 Palpitations 35648741 R0 0.2 she would like to see cardiology [id number] Zulay Washington NP [facility] Internal Med [address] [facility] [place] [address] 10/24/2023 14:21:58 10/24/2023 15:03:40 Herpes simplex 15744020 B00.9 will treat for cold sores and if not improving by friday will call back Health Concerns Section Related Observation LastModified by Organization Detai ls LastModified Time None Recorded Concern Status LastModified by Organization Details LastModified Time None Recorded Advance Directives Directive N: Payers Encounter Date Sequence Insurance Name Policy Number Policy Garcia Covered Member ID Garcai Member ID Guarantor Name 05/27/2023 1 [employer] (MEDICARE REPLACEMENT/AD VANTAGE - PPO) [id number] Lindsay Pedersen [id number] Lindsay Pedersen 05/27/2023 2 [place]ARE OR MEDICARE REPLACEMENT PRIMARY) Lindsay Pedersen [id number] Lindsay Pedersen 06/20/2023 1 [employer] (MEDICARE REPLACEMENT/AD VANTAGE - PPO) [id number] Lindsay Pedersen [id number] Lindsay Pedersen 06/20/2023 2 [place] OR [place]ICARE REPLACEMENT PRIMARY) Lindsay Pedersen [id number] Lindsay Pedersen 06/27/2023 1 [facility] (MEDICARE REPLACEMENT/AD VANTAGE - PPO) [id number] Lindsay Pedersen [id number] Lindsay Pedersen 06/27/2023 2 [place] OR MEDICARE REPLACEMENT PRIMARY) Lindsay Pedersen [id number] Lindsay Pedersen 10/14/2023 1 [facility] (MEDICARE REPLACEMENT/AD VANTAGE - PPO) [id number] Lindsay Pedersen [id number] Lindsay Pedersen 10/14/2023 2 [place] OR MEDICARE REPLACEMENT PRIMARY) Lindsay Pedersen [id number] Lindsay Pedersen 10/24/2023 1 [facility] (MEDICARE REPLACEMENT/AD VANTAGE - PPO) [id number] Lindsay Pedersen [id number] Lindsay Pedersen 10/24/2023 2 [place] OR MEDICARE REPLACEMENT PRIMARY) Lindsay Pedersen [id number] Lindsay Pedersen Notes Date Note Type Note Provider Name and Address Organization Details Recorded Time 05/27/2023 text/html Pt is here today to get evaluated for a shower chair and rollator. She is scheduled for right knee surgery on June 30. Zulay Washington NP [address] [place] [address], [facility] [address], [place], [address], [facility] [employer] 05/27/2023 14:07:27 06/20/2023 text/html Patient is a 68 y/o female here for surgery clearance. She is having a right knee replacement scheduled on 07/01/23 at [facility] Zulay Washington NP [address], [address], [place], [address], [employer] 06/20/2023 14:22:59 06/27/2023 text/html Pt is here today for a surgical clearance for Right Total Knee replacement with Dr. Kamar Gandara on 07/01/2023. Zulay Washington NP [address], [address], [place], [address], [facility] [employer] 06/27/2023 12:47:17 10/14/2023 text/html Here today for having palpitations has been having them every day for MONTHS, happens even at rest.a while has just been ignoring it. Also left ear hurts X 3days. She put some vicks on a cotton ball which has helped some #1 Cardiology group at [facility] - [phone] #2 GI- Dr. Salinas - [phone]- #3Hematologist- Dr. 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 Now uses OTC suppository. Has used Miralax [...] replacement, getting PT Fidencio French MD [address], [address], [place], [address], [employer] [facility] [employer] 10/14/2023 16:21:52 10/24/2023 text/html blisters on her upper lip, started about a week agotingles with drainage and burningstarted as a small spot in the corner of her mouth now across upper lip Zulay Washington NP [address], [address], [place], [address], [employer] 10/24/2023 14:58:46 OBGyn Episode No OBEpisode recorded.
--- OUTSIDE RECORDS SUMMARY | 2024-07-15 10:31 | XMS_ITS ---
Author Name Amina Mccray Address [address] [facility] [address] [place] [address] [facility], Address [address] [facility] [address] [place] [address] Care Team Providers Care Software Project Engineer Name Role Phone Amina Mccray Primary Care Physician Unavailab le Amina Mccray Preferred Provider Unavailable Allergies and Adverse Reactions Name Reaction Notes NO KNOWN DRUG ALLERGIES Plan of Treatment Planned Activity Comments Planned Date Planned Time Plan /Goal GUSTAVO w/ creatinine 01/14/2024 12:00 AM GUSTAVO w/ creatinine 01/14/2024 12:00 AM QuantaFlo, In-Center Only 01/14/2024 2:02 PM [facility]anta[facility], In-Center Only 01/14/2024 2:22 PM GUSTAVO w/ creatinine 04/14/2024 12:00 AM GUSTAVO w/ creatinine 04/14/2024 12:[address], Chest w/o contrast 04/14/2024 12:[address], Abdomen & pelvis w/o contrast 04/14/2024 12 :00 AM At home sleep study 04/14/2024 12:00 AM XR, Skull <4 views 08/22/2021 12:00 AM [...] Intertrigo Active 01/14/2024 Supraventricular tachycardia Active 01/29/2024 Ventricular tachycardia Active Hiatal hernia Active 04/14/2024 Insomnia Active 04/14/2024 Mild episode of recurrent major depressive disor jayshree Active 04/14/2024 Mild episode of recurrent major depressive disor jayshree Active 04/19/2024 Diverticulosis Active 04/19/2024 Urinary retention Active 04/19/2024 Mild episode of recurrent major depressive disor jayshree Active 04/21/2024 Class 2 severe obesity due t o excess calories with serious comorbidity and body mass index (BMI) of 38.0 to 38.9 in adult Active 04/21/2024 Degenerative disc disease, cervical Active 04/21/2024 Degenerative disc disease, lumbar Active 06/08/2024 Primary osteoarthritis of both hips Active 06/08/2024 Aortic atherosclerosis Active 06/08/2024 Renal cyst Active 06/08/2024 Pulmonary nodule Active 06/08/2024 Coronary artery calcification Active Vital Signs Date Time BP-Sys(mm[Hg] BP-Tova(mm[Hg]) HR(bpm) RR(rpm) Temp WT HT HC BMI BSA BMI Percentile O2 Sat(%) 2024 3:27: 00 PM 139 mm[Hg] 82 mm[Hg] 78 {beats}/ min 18 rpm 98.09 6 F 203 .37 8 lbs 61. 016 in 38.4 078 kg/m 2 1.99 28 m2 98 % 2024 2:36: 00 PM 112 mm[Hg] 72 mm[Hg] 86 {beats}/ min 20 rpm 98.29 4 F 205 .50 3 lbs 61. 016 in 38.8 1 kg/m 2 2.00 m2 98 % 01/13 1:49: 00 PM 122 mm[Hg] 78 mm[Hg] 90 {beats}/ min 16 rpm 98.29 4 F 205 .50 3 lbs 61. 016 in 38.8 091 kg/m 2 2.00 32 m2 98 % 01/13 1:49: 00 PM 90 {beats}/ min 16 rpm 98.29 4 F 205 .50 3 lbs 61. 016 in 38.8 091 kg/m 2 2.00 32 m2 98 % 01/13 1:49: 00 PM 98.29 4 F 205 .50 3 lbs 61. 016 in 38.8 091 kg/m 2 2.00 32 m2 2022 9:25: 00 AM 138 mm[Hg] 74 [...] 12:00 AM Annual Visit (G0439) Reviewe d 04/14/2024 12:00 AM COMPREHEN METABOLIC PANEL Ret urned 04/14/2024 12:00 AM VITAMIN D 25 HYDROXY Returned 04/14/2024 12:00 AM LIPID PANEL Returned 04/14/2024 12:00 AM ASSAY THYROID STIM HORMONE Re turned 04/14/2024 12:00 AM COMPLETE CBC W/AUTO DIFF WBC Returned 04/14/2024 12:00 AM ASSAY OF NATRIURETIC PEPTIDE Returned 04/14/2024 4:14 PM UPR/L XTREMITY ART 2 LEVELS Re viewed 06/08/2024 4:56 PM PAD Lower Extremity Exam Revie wed 07/25/2021 3:56 PM GLYCOSYLATED HEMOGLOBIN TEST Re [...] [facility] MGMT SRVC 20 MIN R nirmalawed 05/08/2022 12:00 AM ASSAY OF PARATHORMONE Returne [...] NITROGEN (BUN) 15.0 mg/dLCREATININE 1.070 mg/dLeGFR NON-AFR. SAMMARINESE 54.0 mL/min/1.73m eGFR 63BUN/CREATININE RATIO 14.0 (calc)SODIUM 137.0 mmol/LPOTASSIUM 4.20 [...] NITROGEN (BUN) 13.0 mg/dLCREATININE 1.090 mg/dLEGFR 56.0 mL/min/1.73m BUN/CREATININE RATIO 12.0 (calc)SODIUM 136.0 mmol/LPOTASSIUM 4.20 mmol/LCHLORIDE [...] NITROGEN (BUN) 14.0 mg/dLCREATININE 0.980 mg/dLEGFR 64.0 mL/min/1.73m BUN/CREATININE RATIO NOT APPLICABLE (calc)SODIUM 139.0 mmol/LPOTASSIUM 4.20 [...] PM Advance Directive [facility] Rejected/Declined: DECL 10/23/2023 12:00 AM Breast Cancer Screen ing Compliant 01/14/2024 12:00 AM Lower Extremity Exam : [...] NITROGEN (BUN) 17.0 mg/dLCREATININE 1.160 mg/dLEGFR 52.0 mL/min/1.73m BUN/CREATININE RATIO 15.0 (calc)SODIUM 145.0 mmol/LPOTASSIUM 4.60 mmol/LCHLORIDE 101.0 mmol/LCARBON DIOXIDE 33.0 mmol/LCALCIUM 9.60 mg/dLPROTEIN, TOTAL 7.80 g/dLALBUMIN 4.0 g/dLGLOBULIN 3.80 g/dLALBUMIN/GLOBULIN RATIO 1.10 (calc)BILIRUBIN, TOTAL 0.30 mg/dLALKALINE PHOSPHATASE 81 U/LAST 14 U/LALT 12 U/LCREATININE, RANDOM URINE 0.570 mg/mLALBUMIN, URINE 8.3ALBUMIN/CREATININE RATIO, RANDOM URINE 146WHITE BLOOD CELL COUNT 11.10 x10E3/uLRED BLOOD CELL COUNT 4.850 x10E6/uLHEMOGLOBIN 13.30 g/dLHEMATOCRIT 42.10 %MCV 86.80 fLMCH 27.40 pgMCHC 31.60 g/dLRDW 15.80 %PLATELET COUNT 286.0 x10E3/uLMPV 11.50 fLABSOLUTE NEUTROPHILS 6161 cells/uLABSOLUTE LYMPHOCYTES 4174 cells/uLABSOLUTE MONOCYTES 566 cells/uLABSOLUTE EOSINOPHILS 133 cells/uLABSOLUTE BASOPHILS 67 cells/uLNEUTROPHILS 55.50 %LYMPHOCYTES 37.60 %MONOCYTES 5.10 %EOSINOPHILS 1.20 [...] heart rate (average) 146Longest ventricular tachycardia episode [id number] ventricular tachycardia episode - duration 5.5Longest ventricular tachycardia episode - number of beats 15Longest ventricular tachycardia episode - heart rate minimum 124Longest ventricular tachycardia episode - heart rate maximum 188Longest ventricular tachycardia episode - heart rate (average) 170Ventricular tachycardia with fastest heart rate [id number] tachycardia with fastest heart rate - duration [...] rate (average) 117.0 {beats}/minLongest supraventricular tachycardia episode [id number] supraventricular tachycardia episode - duration 8.10 secsLongest supraventricular tachycardia episode - number of beats 14Longest supraventricular tachycardia episode - heart rate minimum 86.0 {beats}/minLongest supraventricular tachycardia episode - heart rate maximum 132.0 {beats}/minLongest supraventricular tachycardia episode - heart rate (average) 107.0 {beats}/minSupraventricular tachycardia with fastest heart rate [id number] tachycardia with fastest heart rate - duration 3.8Supraventricular tachycardia with fastest heart rate - number of beats 8Supraventricular tachycardia with fastest heart rate - heart rate minimum 120.0 {beats}/minSupraventricular tachycardia with fastest heart rate - heart rate maximum 133.0 {beats}/minSupraventricular tachycardia with fastest heart rate - heart rate (average) 126.0 {beats}/minLongest bigeminy [id number] bigeminy - duration 3.90 sIsolated SVE frequency RareIsolated SVE count 788Isolated VE Frequency RareIsolated VE Counts 479VE Couplets Frequency RareVE Couplets Counts 6VE Triplets Frequency RareVE Triplets Counts 9Enrollment Period Start [id number] Period End [id number] 04/14/2024 12:00 AM Lower Extremity Exam : PAD Neg Symptoms / Neg Exam 04/14/2024 2:49 PM SDOH - Unhoused María EMILY - Housing Concerns NoSDOH - Utilities NoSDOH - Food Access Concerns (Run Out of Food Now) NoSDOH - History Food Insecurity NoSDOH - Medication Assistance NoSDOH - Health Literacy NoSDOH - Transportation NoSDOH - Safety YesSDOH - Physical Abuse History NoSDOH - Mental Abuse History NoSDOH - Urgent Need NoSDOH - Loneliness Score 3 04/14/2024 2:50 PM VES - 13 5 04/14/2024 2:51 PM PHQ-9 6 04/14/2024 4:14 PM QuantaFlo Right Foot 1.110 UnitsQuantaFlo Left Foot 1.090 Units 04/14/2024 4:38 PM CHOLESTEROL, TOTAL 1 76.0 mg/dLHDL CHOLESTEROL 47.0 mg/dLTRIGLYCERIDES 140.0 mg/dLLDL-CHOLESTEROL 105.0 mg/dLCHOL/HDLC RATIO 3.70 RatioNON HDL CHOLESTEROL 129.0 mg/dLGLUCOSE 101.0 mg/dLUREA NITROGEN (BUN) 16.0 mg/dLCREATININE 1.140 mg/dLEGFR 52.0 mL/min/1.73m BUN/CREATININE RATIO 14.0 (calc)SODIUM 138.0 mmol/LPOTASSIUM 3.80 mmol/LCHLORIDE 99.0 mmol/LCARBON DIOXIDE 29.0 mmol/LCALCIUM 9.60 mg/dLPROTEIN, TOTAL 7.90 g/dLALBUMIN 4.20 g/dLGLOBULIN 3.70 g/dLALBUMIN/GLOBULIN RATIO 1.10 (calc)BILIRUBIN, TOTAL 0.40 mg/dLALKALINE PHOSPHATASE 81 U/LAST 13 U/LALT 12 U/LWHITE BLOOD CELL COUNT 12.10 x10E3/uLRED BLOOD CELL COUNT 4.890 x10E6/uLHEMOGLOBIN 13.50 g/dLHEMATOCRIT 42.20 %MCV 86.30 fLMCH 27.60 pgMCHC 32.0 g/dLRDW 15.20 %PLATELET COUNT 275.0 x10E3/uLMPV 12.10 fLABSOLUTE NEUTROPHILS 7284 cells/uLABSOLUTE LYMPHOCYTES 4126 cells/uLABSOLUTE MONOCYTES 532 cells/uLABSOLUTE EOSINOPHILS 121 cells/uLABSOLUTE BASOPHILS 36 cells/uLNEUTROPHILS 60.20 %LYMPHOCYTES 34.10 %MONOCYTES 4.40 %EOSINOPHILS 1.0 %BASOPHILS 0.30 %B TYPE NATRIURETIC PEPTIDE (BNP) 61.0 pg/mLTSH 1.38VITAMIN D,25-OH,TOTAL,IA 111.0 ng/mL 06/08/2024 3:33 PM BP Monitor @home Yes 06/08/2024 4:56 PM Lower Extremity Exam : PAD Neg Symptoms / Neg Exam History Of Immunizations Name Date Admin Mfg [...] HPI: Pt repor ts Lumpectomy of L [id number] request records and f/u History of breast [...] X-ray exams for head and knee at [facility]Arranged transportation for pt to reach facility.-Will request [...] 50 mg tablet- Pt follows with ortho @[facility], Next appt 03/21/22 - Will request records [...] Labs ( 02/12 ): GFR _56_, Cr_1.090_; D iscussed results w/ pt today , labs obtained again 05/08/22. - Continue [...] prn- will f/u and ctm Supraventricular tachycardia 01/29/202409/2023 (amended to add)- chronic- per [facility]io results 01/14/2024 to 01/18/2024: 'Supraventricular tachycardia 4 beats or more'.- will encouraged the pt to f/u with cardiology- will f/u and ctm Ventricular tachycardia 04/09/2024 04/09/19 25 (amended to add)- chronic- per [facility] results 01/14/2024 to 01/18/2024: 'ventricular tachycardia 4 beats or more'.- will encouraged the pt to f/u with cardiology- will f/u and ctm Hiatal hernia 04/14/2024 Insomnia 04/14/2024 Mild episode of recurrent ma angel depressive disorder 04/21/2024 04/14/2024- chronic- PHQ9 04/14/2024: 06- mild, uncomplicated- pt reported to feel tired or sleeping too much- 'not managed with meds- will f/u and ctm Diverticulosis 04/19/2024 Urinary retention 04/19/2024 04/14/2024- chr onic- pt reported difficulty in emptying the bladder, requiring manual pressure- not managed with meds- ordered CT scan of abd/pelvis to further evaluate for urinary retention- referred to urology- encouraged to follow up with urology- will f/u and ctm Class 2 severe obesity due t o excess calories with serious comorbidity and body mass index (BMI) of 38.0 to 38.9 in adult 04/21/2024 04/14/2024- chronic- per vitals 04/14/2024: weight 206 lbs, BMI 38.81; 01/14/2204: weight 206 lbs, BMI 38.81- Comorbidities: HTN, HLD, CHF, CKD- encouraged to follow healthy diet an exercises- will f/u and ctm Degenerative disc disease, cervical 04/21/2024 Degenerative disc disease, lumbar 06/08/2024 06/08/2024 - Chronic- per CT abd/pelvis 05/21/2024: there is thoracic and lumbar spondylosis with degenerative disc disease. Dextroconvex curvature centered at L4-5- reports chronic pain- managed with tramadol- follows with ortho- will f/u and ctm Primary osteoarthritis of roxana th hips 06/08/2024 Aortic atherosclerosis 06/08/2024 - chronic- per CT abd/pelvis : atherosclerosis of abdomen aorta- currently managed with atorvastatin 20 mg QD- encouraged high fiber diet and exercise regularly- will f/u and ctm Renal cyst 06/08/2024 06/08/2024 - chr onic- per CT abd/pelvis 05/21/2024: 'Hyperdense 5 mm lesion at the posterolateral cortex of the left kidney most suggestive of hemorrhagic or proteinaceous cysts. Adjacent hyperdense structure could reflect faint calcification or additional 4 mmhemorrhagic/proteinaceous lesion.'- follows with urology Dr Cuba Galarza- reported that her urologist got some blood work done to evaluate for renal cyst, medical records requested- scheduled to see urology in one month- will f/u and ctm Pulmonary nodule 06/08/2024 Coronary artery calcification 06/08/2024 - chronic- per CT Chest 05/21/2024: coronary artery calcifications- currently managed with atorvastatin 20 mg QD- encouraged high fiber diet and exercise regularly- will f/u and ctm Bilateral lower extremity [...] medical examination with abnormal findings in adult [place] 2021 10:28AM Encounter for drug therapy Aug 22 2021 10:28AM Fall, initial encounter Aug 22 2021 10:28AM Fall, initial encounter Aug 22 2021 12:20PM Fall, initial encounter Aug 22 2021 12:20PM Bilateral lower extremity edema Aug 22 2021 10:28 AM Hypertension Aug 22 2021 10:28AM Dry mouth, unspecified [place] 2021 10:28AM PAD (peripheral artery disease) Aug 22 2021 10:28 AM Diabetes mellitus Aug 22 2021 10:28AM DEXA (postmenopausal state) Aug 22 2021 2:16PM Bilateral lower extremity edema Aug 22 2021 2:16P M Murmur, cardiac [place] 2021 2:16PM Hypertension Aug 22 2021 2:16PM [...] 2022 10:36AM Lymphedema due to trauma May 01 2022 11:09AM Bilateral lower extremity edema May 01 2022 11:09 AM Encounter for annual general medical examination with abnormal findings in adult May 08 2022 10:00AM Encounter for drug therapy May 08 2022 10:00AM Encounter for screening for lipoid disorders May 08 2022 10:00AM Encounter for screening for cardiovascular disorders May 08 2022 10:00AM Chronic diastolic (congestiv e) heart failure May 08 2022 10:00AM 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 May 08 2022 10:25AM Lymphedema of extremity May 08 2022 10:34AM HLD (hyperlipidemia) May 08 2022 10:00AM Stage 3a chronic kidney disease May 08 2022 10:0 0AM Tear of medial meniscus of right knee, current, unspecified tear type, initial encounter Feb 2022 10:00AM 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 b 2022 10:00AM Vitamin D deficiency May 08 2022 10:00AM Hypertensive heart and chron ic kidney disease with heart failure and stage 1 through stage 4 chronic kidney disease, or unspecified chronic kidney disease Feb 2022 10:00AM Chronic diastolic (congestiv e) heart failure b 2022 10:00AM Chronic kidney disease, stag e 3a b 2022 10:00AM Bilateral lower extremity edema b 2022 10:0 0AM Morbid (severe) obesity due to excess calories b 2022 10:00AM Body mass index [BMI] 40.0-44.9, adult b 2022 10:00AM Type 2 diabetes mellitus wit h other specified complication b 2022 10:00AM Mixed hyperlipidemia Feb 2022 10:00AM [...] 2:23PM Supraventricular tachycardia Jan 14 2024 2:23PM Ventricular tachycardia Jan 14 2024 2:23PM Hypertensive heart and chron ic kidney disease with heart failure and stage 1 through stage 4 chronic kidney disease, or unspecified chronic kidney disease Apr 14 2024 12:01PM Chronic diastolic (congestiv e) heart failure Apr 14 2024 12:01PM Chronic kidney disease, stag e 3a Apr 14 2024 12:01PM Vitamin D deficiency Apr 14 2024 12:01PM Encounter for drug therapy Apr 14 2024 12:01PM Urinary retention with incomplete bladder emptying Apr 14 2024 3:15PM Atherosclerosis of lower extremity Apr 14 2024 2:56PM Chronic diastolic (congestiv e) heart failure Apr 14 2024 2:56PM Type 2 diabetes mellitus wit h other specified complication Apr 14 2024 2:56PM Mixed hyperlipidemia Apr 14 2024 2:56PM Hypertensive heart and chron ic kidney disease with heart failure and stage 1 through stage 4 chronic kidney disease, or unspecified chronic kidney disease Apr 14 2024 2:56PM Chronic diastolic (congestiv e) heart failure Apr 14 2024 2:56PM Chronic kidney disease, stag e 3a Apr 14 2024 2:56PM Stage 3a chronic kidney disease Apr 14 2024 2:56 PM 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 Apr 14 2024 2:56PM Ventricular tachycardia Apr 14 2024 2:56PM Hiatal hernia Apr 14 2024 2:56PM Atherosclerosis of lower extremity Apr 14 2024 3:22PM Hiatal hernia Apr 14 2024 3:24PM Insomnia Apr 14 2024 3:46PM Insomnia Apr 14 2024 3:53PM Insomnia Apr 14 2024 2:56PM Mild episode of recurrent ma angel depressive disorder Apr 14 2024 2:56PM Diverticulosis Apr 14 2024 2:56PM Urinary retention Apr 14 2024 2:56PM Obesity, class 2 Apr 14 2024 2:56PM Morbid (severe) obesity due to excess calories Apr 14 2024 2:56PM Body mass index [BMI] 38.0-38.9, adult Apr 14 2024 2:56PM Constipation Apr 14 2024 2:56PM Tear of medial meniscus of right knee, current, unspecified tear type, initial encounter Apr 14 2024 2:56PM Degenerative disc disease, cervical Apr 14 2024 2:56PM Urinary retention Apr 21 2024 4:03PM Diverticulosis Jun 08 2024 3:35PM Hiatal hernia Jun 08 2024 3:35PM Sleep apnea Jun 08 2024 3:35PM Degenerative disc disease, lumbar Jun 08 2024 3:35PM Primary osteoarthritis of roxana th hips Jun 08 2024 3:35PM Aortic atherosclerosis Jun 08 2024 3:35PM Renal cyst Jun 08 2024 3:35PM Pulmonary nodule Jun 08 2024 3:35PM Coronary artery calcification Jun 08 2024 3:35PM Obesity, class 2 Jun 08 2024 3:35PM Other obesity due to excess calories Jun 08 2024 3:35PM Body mass index [BMI] 38.0-38.9, adult Jun 08 2024 3:35PM Payers Insurance Name Company Name Plan Name Plan Number Policy Number Policy Group Number Start Date [facility] - [id number] [id number] Saturday, 2022 Medicaid - [place] Medicaid - [facility] [place] [id number] N/A [facility] - [id number] February Medicare - [place] Medicare Part B - [facility] [place] [id number] N/A [facility]) - G2315 [id number]l Leonard Wood Army Community HospitalBANDAR [id number] Wednesday, 2021 [facility] - G2315 [id number] Indian Medical CenterBANDAR [id number] Friday History of Encounters Visit Date Visit Type Provider 06/08/2024 In Office Visit Amina Mccray [employer] 04/26/2024 In Office Visit [facility]its [facility] 04/14/2024 In Office Visit Amina Mccray [employer] 2024 In Office Visit Visits [facility] 01/14/2024 In Office Visit Amina Mccray [employer] 05/08/2022 In Office Visit Amina Mccray [employer]ANCE 03/11/2022 In Office Visit Amina Mccray [employer] 02/18/2022 In Office Visit Amina Mccray [employer] 02/06/2022 In Office Visit Amina Mccray [employer] 12/27/2021 In Office Visit Amarilis tang NP 11/21/2021 In Office Visit Amina Mccray NP 08/22/2021 In Office Visit Alesia wise MD 07/25/2021 In Office Visit Alesia wise MD
--- OUTSIDE RECORDS SUMMARY | 2024-07-15 10:31 | XMS_ITS ---
Author Organization 1 OF Agust[facility] Address [address] [place] [address] Care Team Providers Care Installment Dealer Name Role Phone Fidencio French MD Primary Care Provider Unavail able Tammy Aponte Unavailable [phone] REASON FOR VISIT DFC (Diabetic foot care) Encounters Encounter Location Date Provider Diagnosis 1 OF [facility] [address] [place] [address] 04/12/2024 Tammy Fadi Onychodystrophy L60. 3 ; Type 2 diabetes mellitus with other diabetic neurological complication E11.49 and Callus L84 Assessments Encounter Date Diagnosis (ICD Code) Assessment Notes Treatment Notes Treatment Clinical Notes Section Notes 04/12/2024 Onychodystrophy (ICD-10 - L60.3) 04/12/2024 Type 2 diabetes mellitus with other diabetic neurological complication (ICD-10 - E11.49) Considering the associated comorbidities and physical exam findings today, this patient is at substantial risk of developing serious foot complications in the absence of regular and professional palliative foot care. 04/12/2024 Callus (ICD-10 - L84) Plan Of Treatment [...] [address], [address], [place], [address], Procedure Notes * Category Sub-Category Detail Notes PALLIATIVE FOOT CARE: Callus paring: (88108) Le ss than five calluses as noted above reduced with a sterile scalpel blade Dystrophic nail trim (G0127) All dystrop hic nails reduced in length and thickness with curettage of debris from nail margins as needed Progress Notes * Danielle PEDERSENhDOB:1955 (69 yo F)Acc No.[id number]:04/12/2024 Progress Note Patient: Lindsay PRINCE Provider: Melquiades Aponte DPM :1955 A ge:69 Y S ex:Female Date:04/12/2024 Address:[address] [place], [place] [id number] Pcp:Fidencio French MD Subjective: * Chief Complaints: * 1 . DFC (Diabetic foot care). * HPI: Rai Coker assisting with visit:: HPI/Rooming: . ..... P [facility] reason for visit:: Diabetic Foot Care: [age] y/o diabetic female RTO for diabetic foot care. Patient reports no acute issues with nails or calluses today. R eports last HA1c of . * Medical History: Objective: * Vitals: * Examination: G eneral Examination: Constitutional / Appearance: N o acute distress , Well nourished, Appropriate personal hygiene. Mental status: C ooperative, Oriented to person, place and time, Mood and affect: normal, Judgement and intellect: normal with appropriate response to questions. Shoes today: X XXXXX. L ower Extremity VASCULAR: : Pulses: D P pulse diminished b/l , PT pulse diminished b/l.? Temperature gradient: r elatively warm from proximal to distal, bilateral. Pedal hair: s parse, bilateral. Venous insufficiency edema: M ild, bilateral lower legs.? Capillary refill at distal toes less than 3 seconds, bilateral. L ower Extremity DERM: : Skin: n o suspicious lesions, no open sores, without interdigital maceration, bilateral. Nails: N ails appear elongated and dystrophic with abnormal shape, periungual debris, subungual hyperkeratosis.. Hyperkeratotic lesions LEFT foot: m edial hallux IPJ. Hyperkeratotic lesions RIGHT foot: m edial hallux IPJ.? L ower Extremity NEURO: : General sensation appears i ntact , bilateral. Muscle tone w ithin normal limits , bilateral. Monofilament test (10 gram pressure) E xam of 04/12/2024.? Vibration perception: E xam of 04/12/2024. ? L ower Extremity MSK: : Gait S low, wide-based gait. Foot type: B ilateral lower extremity exhibits pes planus foot type with decreased medial arch. Left lower extremity inspection and palpation: N [...] P ALLIATIVE FOOT CARE:: Callus paring: ( [id number]) Less than five calluses as noted above reduced with a sterile scalpel blade. Dystrophic nail trim (G0127) A ll dystrophic nails reduced in length and thickness with curettage of debris from nail margins as needed. * Procedure Codes: 1 1056 TRIM SKIN LESIONS, 2 TO 4, G0127 TRIMMING DYSTROPHIC NAILS ANY #, Modifiers: 59 * Follow Up: 1 0-12 weeks or contact office PRN with any concerns * Images: * Electronic signature of Martita Aponte DPM on 07/15/2024 at 10:31 AM CDT Sign off status: Pending * Provider: Melquiades Aponte DPM Date: 0 04/12/2024 Generated for Alisa burns/Helena/Joy on: 0 07/15/2024 10:31 AM CDT History and Physical Notes * HPI (History of Present Illness) Category Sub-Category Detail Notes Category Not es Primary reason for visit: Diabetic Foot Care: 69 y/o diabetic female RTO for diabetic foot care. Patient reports no acute issues with nails or calluses today. Reports last HA1c of MA assisting with visit: HPI/Rooming: ..... Examination Category Sub-Category Detail Notes Category Not es General Examination Mental status: Cooperative, Oriented to person, place and time, Mood and affect: normal, Judgement and intellect: normal with appropriate response to questions Shoes today: XXXXXX Constitutional / Appearance: No acute di stress [...] Lower Extremity NEURO: Monofilament test (10 gram pres sure) Exam of 04/12/2024 Vibration perception: Exam of 04/12/2024 General sensation appears intact , bilat eral [...]
--- OUTSIDE RECORDS SUMMARY | 2024-07-15 10:31 | XMS_ITS ---
Author Organization 1 OF [facility] Address [address] [place] [address] Care Team Providers Care Property Officer Name Role Phone Fidencio French MD Primary Care Provider Unavail able Tammy Aponte Unavailable [phone] REASON FOR VISIT DFC (Diabetic foot care) Encounters Encounter Location Date Provider Diagnosis 1 OF [facility] [address] [facility] [address] [place] [address] 04/01/2024 Tammy Tannera Onychodystrophy L60. 3 ; Type 2 diabetes mellitus with other diabetic neurological complication E11.49 and Callus L84 Assessments Encounter Date Diagnosis (ICD Code) Assessment Notes Treatment Notes Treatment Clinical Notes Section Notes 04/01/2024 Onychodystrophy (ICD-10 - L60.3) 04/01/2024 Type 2 diabetes mellitus with other diabetic neurological complication (ICD-10 - E11.49) Considering the associated comorbidities and physical exam findings today, this patient is at substantial risk of developing serious foot complications in the absence of regular and professional palliative foot care. Discussed diabetic shoes and inserts. She will call if she would like a prescription for diabetic inserts. 04/01/2024 Callus (ICD-10 - L84) Plan Of Treatment [...] Name:Tammy Aponte, 09/06/2024 10:00:00 AM, [address], [place], [address], Procedure Notes * Category Sub-Category Detail Notes PALLIATIVE FOOT CARE: Callus paring: ([id number]) Le ss than five calluses as noted above reduced with a sterile scalpel blade Dystrophic nail trim (G0127) All dystrop hic nails reduced in length and thickness with curettage of debris from nail margins as needed Progress Notes * Danielle PEDERSENhDOB:1955 (69 yo F)Acc No.[id number]:04/01/2024 Progress Note Patient: Lindsay PRINCE Provider: Melquiades Aponte DPM :1955 A ge:69 Y S ex:Female Date:04/01/2024 Address:[address] [place] [address] Pcp:Fidencio French MD Subjective: * Chief Complaints: * 1 . DFC (Diabetic foot care). * HPI: M A assisting with visit:: HPI/Rooming: . ..... [facility] reason for visit:: Diabetic Foot Care: [age] y/o diabetic female RTO for diabetic foot care.Patient reports no acute issues with nails or [...] test (10 gram pressure) E xam of 05/01/2023:?revealed intact sensation to, multiple toes, entire foot, bilateral. Vibration perception: E xam of 05/01/2023: n oted intact per evaluation with 128Hz tuning fork applied to distal hallux compared to ipsilateral medial malleolus @ left foot, noted significantly diminished per evaluation with 128Hz tuning fork applied to distal hallux compared to ipsilateral medial malleolus @ right foot. L ower Extremity MSK: : Gait S [...] P ALLIATIVE FOOT CARE:: Callus paring: ( [id number]) Less than five calluses as noted above [...] of Martita Aponte DPM on 07/15/2024 at 10:30 AM CDT Sign off status: Pending * Provider: Melquiades Aponte DPM Date: 0 04/01/2024 Generated for Alisa burns/[place]/eTransmitting on: 0 07/15/2024 10:30 AM CDT History and Physical Notes * [...]
--- OUTSIDE RECORDS SUMMARY | 2024-07-15 10:31 | XMS_ITS | Patient Health Record ---
Author Organization [facility] Address [address] [place] [address] Care Team Providers Care Coal Chemist Name Role Phone Devonte Chen Unavailable [phone] REASON FOR REFERRAL No Information MEDICATIONS Medication SIG (Take, Route, Frequency, Duration) Notes Start Date End Date Status traZODone HCl 50 MG 1 tablet at bedtime Orally Once a day for 90 days 07/02/2024 Active Farxiga 10 MG 1 tablet Orally Once a day for 90 04/07/2024 01/02/2025 Active Calcitriol 0.25 MCG Take 1 capsule by mo uth once daily for 90 Active Vitamin D (Ergocalciferol) 1.25 MG (15427 UT) Take 1 capsule by mouth once a week for 91 Active SOCIAL HISTORY Sex Assigned At : Social History Observation Description Sex Assigned At Female PROBLEMS Problem Type ICD Code Onset Dates Problem Status W/U Status Risk SNOMED Code Notes Problem Anemia, unspecified (D64.9) Active confirmed Anemia (165274581) Problem Type 2 diabetes mellitus with hyperglycemia (E11.65) Active confirmed Hyperglycemia d ue to type 2 diabetes mellitus (246808224720319) Problem Obesity, unspecified (E66.9) Active confirmed Obesity (543816342) Problem Essential (primary) hypertension (I10) Active confirmed Essential hypertension (76125890) Problem Lymphedema, not elsewhere classified (I89.0) Active confirmed Lymphedema (353015535) Problem Primary generalized (osteo)arthritis (M15.0) Active confirmed Primary general ised osteoarthritis (197481621) Problem Renal osteodystrophy (N25.0) Active confirmed Renal osteodyst rophy (11047553) Problem Secondary hyperparathyroidism of renal origin (N25.81) Active confirmed Secondary hyperparathyroidism of renal origin (14251456) Problem Chronic kidney disease, stage 3b (N18.32) Active confirmed Chronic kidney disease stage 3B (disorder) (882956620) Encounters Encounter Location Date Provider Diagnosis [address] [place] [address] 09/10/2023 Devonte Chen Chronic kidney disea se, stage 3b N18.32 ; Type 2 diabetes mellitus with hyperglycemia E11.65 ; Essential (primary) hypertension I10 ; Obesity, unspecified E66.9 ; Lymphedema, not elsewhere classified I89.0 and Anemia, unspecified D64.9 [facility] [address] [address] 12/12/2023 Devonte Chen Chronic kidney disea se, stage 3b N18.32 ; Type 2 diabetes mellitus with hyperglycemia E11.65 ; Essential (primary) hypertension I10 ; Obesity, unspecified E66.9 ; Lymphedema, not elsewhere classified I89.0 and Anemia, unspecified D64.9 [facility] [address] [address] 05/14/2024 Devonte [facility] [address] [address] 05/28/2024 Devonte Chen Chronic kidney disea se, stage 3b N18.32 ; Type 2 diabetes mellitus with hyperglycemia E11.65 ; Essential (primary) hypertension I10 ; Obesity, unspecified E66.9 ; Lymphedema, not elsewhere classified I89.0 ; Anemia, unspecified D64.9 ; Primary generalized (osteo)arthritis M15.0 ; Renal osteodystrophy N25.0 and Secondary hyperparathyroidism of renal origin N25.81 [facility] [place] [facility] [address] [place] [address] 07/02/2024 Devonte Chen Chronic kidney disea se, stage 3b N18.32 ; Type 2 diabetes mellitus with hyperglycemia E11.65 ; Essential (primary) hypertension I10 ; Obesity, unspecified E66.9 ; Lymphedema, not elsewhere classified I89.0 ; Anemia, unspecified D64.9 ; Primary generalized (osteo)arthritis M15.0 ; Renal osteodystrophy N25.0 ; Secondary hyperparathyroidism of renal origin N25.81 and Cyst of kidney, acquired N28.1 [facility] [address] [address] 04/07/2024 Devonte Chen [facility] [address] [place] [address] 07/02/2024 Devonte [address] [place] [address] 10/28/2023 Devonte Chen [facility] [address] [place] [address] 11/25/2023 Devonte Chen [facility] [address] [place] [address] 11/26/2023 Devonte Chen ASSESSMENTS Encounter Date Diagnosis Assessment Notes Treatment Notes Treatment Clinical Notes Section Notes 09/10/2023 Chronic kidney disea se, stage 3b (ICD-10 - N18.32) 12/12/2023 Type 2 diabetes mellitus with hyperglycemia (ICD-10 - E11.65) 12/12/2023 Chronic kidney disea se, stage 3b (ICD-10 - N18.32) 05/28/2024 Type 2 diabetes mellitus with hyperglycemia (ICD-10 - E11.65) 05/28/2024 Chronic kidney disea se, stage 3b (ICD-10 - N18.32) 07/02/2024 Type 2 diabetes mellitus with hyperglycemia (ICD-10 - E11.65) 07/02/2024 Chronic kidney disea se, stage 3b (ICD-10 - N18.32) 07/02/2024 Essential (primary) hypertension (ICD-10 - I10) 05/28/2024 Essential (primary) hypertension (ICD-10 - I10) 12/12/2023 Essential (primary) hypertension (ICD-10 - I10) 09/10/2023 Type 2 diabetes mellitus with hyperglycemia (ICD-10 - E11.65) 09/10/2023 Essential (primary) hypertension (ICD-10 - I10) 12/12/2023 Obesity, unspecified (ICD-10 - E66.9) 05/28/2024 Obesity, unspecified (ICD-10 - E66.9) 07/02/2024 Obesity, unspecified (ICD-10 - E66.9) 07/02/2024 Lymphedema, not elsewhere classified (ICD-10 - I89.0) 05/28/2024 Lymphedema, not elsewhere classified (ICD-10 - I89.0) 12/12/2023 Lymphedema, not elsewhere classified (ICD-10 - I89.0) 09/10/2023 Obesity, unspecified (ICD-10 - E66.9) 09/10/2023 Lymphedema, not elsewhere classified (ICD-10 - I89.0) 05/28/2024 Anemia, unspecified (ICD-10 - D64.9) 12/12/2023 Anemia, unspecified (ICD-10 - D64.9) 07/02/2024 Anemia, unspecified (ICD-10 - D64.9) 05/28/2024 Primary generalized (osteo)arthritis (ICD-10 - M15.0) 07/02/2024 Primary generalized (osteo)arthritis (ICD-10 - M15.0) 09/10/2023 Anemia, unspecified (ICD-10 - D64.9) 07/02/2024 Renal osteodystrophy (ICD-10 - N25.0) 05/28/2024 Renal osteodystrophy (ICD-10 - N25.0) 05/28/2024 Secondary hyperparathyroidism of renal origin (ICD-10 - N25.81) 07/02/2024 Secondary hyperparathyroidism of renal origin (ICD-10 - N25.81) 07/02/2024 Cyst of kidney, acquired (ICD-10 - N28.1) PLAN OF TREATMENT Next Appt Details Provider Name:Devonte Chen , 09/10/2024 02:15:00 PM, [address], [facility] [address], [place], [address],
--- OUTSIDE RECORDS SUMMARY | 2024-07-15 10:31 | XMS_ITS | Clinical Summary ---
Author Organization [facility] Address [address] [facility] [place] [address] Care Team Providers Care Balloon Dipper Name Role Phone Bao Lyons DO Primary Care Provider Allergies No known active allergies Medications amLODIPine (NORVASC) 10 mg tablet Take 10 mg by mouth. Active atorvastatin (LIPITOR) 10 mg tablet TK 1 T PO D 8 Active losartan (COZAAR) 100 mg tablet TAKE 1 TABLET BY MOUTH ONCE DAILY 3 9 Active hydroCHLOROthiaz adrianna (MICROZIDE) 12.5 mg capsule TAKE 1 CAPSULE BY MOUTH ONCE DAILY 1 9 Active flu vaccine quadrivalent 2017- (36 mo+)(PF)(FLUZONE QUAD) 60 mcg/0.5 mL IM syringe PHARMACIST ADMINISTERED IMMUNIZATION ADMINISTERED AT TIME OF DISPENSING 9 Active flu vaccine quadrivalent 2019- (6 mo+)(PF)(FLUARIX QUAD,FLULAVAL QUAD,FLUZONE QUAD)60 mcg/0.5 mL IM syringe PHARMACIST ADMINISTERED IMMUNIZATION ADMINISTERED AT TIME OF DISPENSING 9 Active dulaglutide (TRULICITY SUBCUT) Inject by subcutaneous [...] = 0.6 oz pur e alcohol) Comments No Sex and Gender Information Value Date Recorded Sex Assigned at Not on file Legal Sex Female 4:13 PM CDT Gender Identity Not on file Sexual Orientation Not on file Last Filed Vital Signs Vital Sign Reading Time Taken Comments Blood Pressure 154/90 08/11/2020 9:15 AM CDT Pulse 77 08/11/2020 9:15 AM CDT Temperature 36.9 C (98.5 F) 01/06/2020 1:00 PM CDT Respiratory Rate - - Oxygen Saturation 95% 08/11/2020 9:15 AM CDT Inhaled Oxygen Concentration - - Weight 100.1 kg (220 lb 11.2 oz) 08/11/2020 9:15 AM CDT Height 154.9 cm (5' 1 ) 08/11/2020 9:15 AM CDT Body Mass Index 41.7 08/11/2020 9:15 AM CDT Plan of Treatment Health Maintenance Due Date Last Done Comments DIABETES ANNUAL FOOT EXAM 01/18/1974 DIABETES ANNUAL RETINAL EXAM 01/18/1974 DIABETES MICROALBUMIN ANNUAL SCREEN 01/18/1974 LDL CHOLESTEROL ANNUAL 01/18/1974 DTAP/TDAP/TD VACCINES (1 - Tdap) 01/18/1975 PNEUMOCOCCAL VACCINE 50+ YEA RS (1 of 2 - PCV) 01/18/1975 COLORECTAL SCREENING 01/18/2001 Colorectal Cancer Screening 01/18/2001 FIT-DNA Q 3 years 01/18/2001 FIT/FOBT Q 1 year 01/18/2001 Flex Sig/CT Colonography Q 5 years 01/18/2001 ZOSTER VACCINE (1 of 2) 01/18/2006 RSV VACCINE (60+ or ) (1 - Risk 60-74 years 1-dose series) 2016 BREAST CANCER SCREENING 04/29/2020 04/29/2019, 04/23 OSTEOPOROSIS SCREENING 01/18/2021 DIABETES HBA1C Q 6 MONTHS 02/02/2021 08/02/2020 INFLUENZA VACCINE (#1) 2023 12/19/2018 Procedures Procedure Name Priority Date/Time Associated Diagnosis Comments HEMOGLOBIN A1C Routine 08/02/2020 from Last 3 Months or Most Recently Relevant to Health Maintenance Results * HEMOGLOBIN A1C (08/02/2020) Blood us Abstract Provider CHEMISTRY ORDERABLES Final Res ult from Last 3 Months or Most Recently Relevant to Health Maintenance Insurance Care Teams Balloon Dipper Relationship Specialty Start Date End Date Bao Lyons DO [address] [facility] [address] [place] [address] PCP - General Internal Medicine 09/21/18
[2024-07-15 10:40] LABS: Influenza A QL RT-PCR Negative (Negative); Influenza B QL RT-PCR Negative (Negative); RSV RNA, RT-PCR Negative (Negative); SARS-CoV-2 RNA PCR Negative (Negative)
[2024-07-15 10:46] LABS: CRP 2.2 mg/dL (<1.0)
[2024-07-15 10:55] LABS: Troponin I 0.014 ng/mL (0.000-0.034)
[2024-07-15 10:56] LABS: Lactic Acid Reflex 1.3 mmol/L (0.7-2.0)
[2024-07-15 11:14] LABS: INR 1.1; Partial Thromboplastin Time 35.1 Seconds (22.3-36.8); Prothrombin Time 15.1 Seconds (11.1-14.7)
--- OUTSIDE RECORDS SUMMARY | 2024-07-15 11:49 | XMS_ITS | CONTINUITY OF CARE DOCUMENT ---
Author Name brit perea Address Unknown Organization [facility] Address [address] [facility] [address] [place] [address] Phone [phone] Care Team Providers Care Hand Presser Name Role Phone Gustavo WANG, May Unavailable Fidencio French MD Unavailable Fidencio French MD Unavailable [phone] PROBLEMS Condition Status Date Provider Notes Mitral regurgitation, mild t o mod, ef nl, 10/2023 active Adan Ahmedzai CKD active Adan Ahmedzai Hyperlipidemia active Adan Ahmedzai Hypertension active Adan Ahmedbenitez Diabetes mellitus, type 2 active Adan marquis ESTELA--on cpap active Adan Lam Family hx of heart disease active Adan james Shortness of breath active Adan Ahmedzai ENCOUNTERS Date Type Provider Location Encounter Diag nosis - In-person encounter Office Visit May Chen MD [facility] ESTELA--on cpapFamily hx of heart diseaseShortness of breath VITAL SIGNS Date Observation Value Provider Body Mass Index (Ratio) 36.21 kg/m2 Elmo Chen MD blood pressure, cuff size regular Kusum Paul blood pressure, diastolic 79 mm[Hg] Kusum Paul blood pressure, systolic 117 mm[Hg] [facility] in [facility] respiratory rate E&M 16 /min [facility] pulse rate 84 /min [facility] oxygen saturation, oximetry 96 % [facility] weight E&M 198 [lb_av] [facility] height E&M 62 [in_i] [facility] ALLERGIES No Known Drug Allergies HISTORY OF [...] Payer name Policy type / Coverage type [place] [employer] party ID [facility] COMPLETE CARE [id number] (PPO C-SNP) Commercial insurance company [id number] [facility] Medicaid 3 [id number] TREATMENT PLAN Date Name Performer Telehealth Adan [...] Mg Tablet (Amlodipine) Orders: C omplete Echo ([id number]) Adan Lam Cardiology Adan Lam Cardiology: H er updated medication list for this problem includes: Losartan 100 Mg Tablet (Losartan) Amlodipine 10 Mg Tablet (Amlodipine) Orders: C omplete Echo ([id number]) Adan Lam Date Name Complete Echo Complete Echo
--- OUTSIDE RECORDS SUMMARY | 2024-07-15 11:49 | XMS_ITS ---
Author Name Amina Mccray Address [address] [place] [address] [facility], Address [address] [place] [address] Care Team Providers Care Telesales Representative Name Role Phone Amina Mccray Primary Care [...] NITROGEN (BUN) 15.0 mg/dLCREATININE 1.070 mg/dLeGFR NON-AFR. SWISS 54.0 mL/min/1.73m eGFR 63BUN/CREATININE RATIO 14.0 (calc)SODIUM [...] heart rate (average) 146Longest ventricular tachycardia episode [id number] ventricular tachycardia episode - duration 5.5Longest ventricular tachycardia episode - number of beats 15Longest ventricular tachycardia episode - heart rate minimum 124Longest ventricular tachycardia episode - heart rate maximum 188Longest ventricular tachycardia episode - heart rate (average) 170Ventricular tachycardia with fastest heart rate [id number] tachycardia with fastest heart rate - duration [...] rate (average) 117.0 {beats}/minLongest supraventricular tachycardia episode [id number] supraventricular tachycardia episode - duration 8.10 secsLongest supraventricular tachycardia episode - number of beats 14Longest supraventricular tachycardia episode - heart rate minimum 86.0 {beats}/minLongest supraventricular tachycardia episode - heart rate maximum 132.0 {beats}/minLongest supraventricular tachycardia episode - heart rate (average) 107.0 {beats}/minSupraventricular tachycardia with fastest heart rate [id number] tachycardia with fastest heart rate - duration 3.8Supraventricular tachycardia with fastest heart rate - number of beats 8Supraventricular tachycardia with fastest heart rate - heart rate minimum 120.0 {beats}/minSupraventricular tachycardia with fastest heart rate - heart rate maximum 133.0 {beats}/minSupraventricular tachycardia with fastest heart rate - heart rate (average) 126.0 {beats}/minLongest bigeminy [id number] bigeminy - duration 3.90 sIsolated SVE frequency RareIsolated SVE count 788Isolated VE Frequency RareIsolated VE Counts 479VE Couplets Frequency RareVE Couplets Counts 6VE Triplets Frequency RareVE Triplets Counts 9Enrollment Period Start [id number] Period End [id number] 04/14/2024 12:00 AM Lower Extremity Exam : [...] HPI: Pt repor ts Lumpectomy of L [id number] request records and f/u History of breast [...] X-ray exams for head and knee at [facility].-Arranged transportation for pt to reach facility.-Will [...] 50 mg tablet- Pt follows with ortho @[facility], Next appt 03/21/22 - Will request [...] Policy Number Policy Group Number Start Date [facility] ([facility]) - [id number] Saturday, 2022 Medicaid - [place] Medicaid - [facility] [id number] N/A [facility] ([facility]) - [id number] February Medicare - [place] Medicare Part B - [facility] [id number] N/A [facility]) - [id number] zzzAARPAdvtgHMOINNEStLLake Regional Health SystemBANDAR [id number] Wednesday, 2021 [facility] ([facility]) - [id number] zzzUHCCrCpltAsrPPOINNSttUNM Cancer CenterBANDAR [id number] Friday History of Encounters Visit Date Visit Type Provider 06/08/2024 In Office Visit Amina Mccray BRADDER 04/26/2024 In Office Visit Visits [facility] 04/14/2024 In Office Visit Amina Mccray BRADDER 2024 In Office Visit Visits [facility] 01/14/2024 In Office Visit Amina Mccray BRADDER 05/08/2022 In Office Visit Amina Mccray BRADDER 03/11/2022 In Office Visit Amina Mccray BRADDER 02/18/2022 In Office Visit Amina Mccray BRADDER 02/06/2022 In Office Visit Amina Mccray BRADDER 12/27/2021 In Office Visit Amarilis tang NP 11/21/2021 In Office Visit Aimna Mccray NP 08/22/2021 In Office Visit Alesia wise MD 07/25/2021 In Office Visit Alesia wise MD
--- OUTSIDE RECORDS SUMMARY | 2024-07-15 11:49 | XMS_ITS | Referral Summary ---
Author Organization [facility] Address [address] [place] [address] Care Team Providers Care Law Researcher Name Role Phone Dahlia Mendez Fe LOYA Unavailable [phone] Amina Mccray CONCRETE PAVING SUPERVISOR Primary Care Provider [phone] Encounters Date Type Department Care Team Description 07/11/2024 Results Follow-Up [facility]ient Care at [address] [address] Padmini Ray NP 07/09/2024 2:11 AM CDT - 07/09/2024 11:59 PM CDT Hospital Encounter [address] [address] Urinary frequency Discharge Disposition: Discharge to home or self care 07/09/2024 Results Follow-Up [facility] at [address] [address] Padmini Ray NP 07/09/2024 2:20 PM CDT Ancillary Procedure [facility] Imaging at [address] [address] Acute cough 07/09/2024 2:15 PM CDT Office Visit [facility] at [address] [address] Padmini Ray NP Lower respiratory infection (e.g., bronchitis, pneumonia, pneumonitis, pulmonitis) (Primary Dx); Urinary frequency; Glucosuria 05/25/2024 11:45 AM SALES PROJECT COORDINATOR Office Visit [facility] Pulmonology [address] [facility] [address] [place] [address] Jamila Latham MD Obstructive sleep apnea (Primary Dx); Psychophysiological insomnia; Nonsmoker; BMI 37.0-37.9, adult 05/17/2024 9:57 AM SALES PROJECT COORDINATOR - 05/17/2024 11:59 PM SALES PROJECT COORDINATOR Hospital Encounter [facility] Orthopedic and [facility] [address] [place] [address] Hiatal hernia Discharge Disposition: Discharge to home or self care 05/17/2024 9:56 AM SALES PROJECT COORDINATOR - 05/17/2024 11:59 PM SALES PROJECT COORDINATOR Hospital Encounter [address] [address] Atherosclerosis of artery of lower extremity Discharge [...] drink = 0.6 oz pur e alcohol) [facility] Utilities Answer Date Recorded In the past 12 months has [employer], or water [employer] threatened to shut off services in your [...] How often do you attend chur or orthodox services? More than 4 times per year 07/02/2023 Do you belong to any clubs o r organizations such as baptism groups, unions, fraternal or athletic groups, or [...] on file Legal Sex Female 5:35 PM SALES PROJECT COORDINATOR Gender Identity Not on file Sexual [...] (205 lb 9.6 oz) 05/25/2024 11:54 AM SALES PROJECT COORDINATOR Height 157.5 cm (5' 2 ) 05/25/2024 11:54 AM SALES PROJECT COORDINATOR Body Mass Index 37.6 05/25/2024 11:54 AM SALES PROJECT COORDINATOR Plan of Treatment Not on file Medical Devices Implanted Type Area Cd Storage And Materials Make Up Helper Device Identifier Shelf Expiration Date Model / Serial / Lot [employer] Attune Cruciate Retain Cementless Knee Right 5 Narrow Component [id number] - [id number] Implanted:Qty: 1 on 07/01/2023 by Kamar Gandara DO at [facility] Right: Knee [employer] [id number] 11/22/2031 [id number] / / [id number] [employer] Attune Fb Tib Base Sz 4 Por [id number] - [id number] Implanted:Qty: 1 on 07/01/2023 by Kamar Gandara DO at [facility] Right: Knee [employer] [id number] 12/22/2031 [id number] / / [id number] [employer] Insert Tibial Knee Fixed Rm Posterior Stabilized Attune 5mm Size 5 Polyethylene [id number] - [id number] Implanted:Qty: 1 on 07/01/2023 by Kamar Gandara DO at [facility] Right: Knee [employer] [id number] 03/23/2031 [id number] / / [id number] Procedures Procedure Name Priority [...] Read Routine (OP Routine) 05/17/2024 10:18 AM SALES PROJECT COORDINATOR Atherosclerosis of artery of lower extremity CT ABDOMEN PELVIS WO CONTRAST Schedule Routine, Read Routine (OP Routine) 05/17/2024 10:17 AM SALES PROJECT COORDINATOR Hiatal hernia SCREENING MAMMOGRAM BILATERAL W PREM [...] signed by Kwesi DENNEY T: Report ID: [id number] Reading Location: [id number] Procedure Note Kwesi Pittman MD - 07/09/2024 [...] signed by Kwesi DENNEY T: Report ID: [id number] Reading Location: [id number] Padmini Ray CONCRETE PAVING SUPERVISOR IMG XR PROCEDURES Final Result * POCT [...] current clinical standards) Comment:Testing performed by : [facility], [address] [place]., [address] Organism (CLINICALLY INSIGNIFICANT GROWTH [facility] Urine, clean voided 07/09/2024 2:11 PM CDT 07/10/2024 5:35 AM CDT Narrative MICHELA - 07/11/2024 12:44 PM CDT Testing performed by [facility] Microbiology Laboratory ([phone]) Padmini Ray NP LAB MICROBIOLOGY - GENERAL ORD ERABLES Final Result MICHELA [address] [place] [address] * (ABNORMAL) POCT urinalysis dipstick (07/09/2024 2:10 PM CDT) Pathologist [facility] Color, Urine, POC Yellow Clarity, ur, POC Clear Clear Glucose, ur, POC 1000.(A) Negative MG/DL Bilirubin, ur, POC Negative Negative, Small, Moderate, Large Ketones, ur, POC Trace(A) Negative Specific [place], POC 1.020 1.003 - 1.030 Blood, ur, POC Negative Negative pH, ur, POC 6.5 5.0 - 8.0 Protein, ur, POC 100.(A) Negative Urobilinogen, urine, POC 0.2 0.2 - 1.0 mg/dL Nitrite, ur, POC Negative Negative Leukocytes, ur, POC Negative Negative Lot Number [id number] Urine 07/09/2024 2:10 PM CDT Padmini Ray NP POINT OF CARE TEST ORDERABLES Final Result * CT Chest WO Contrast (05/17/2024 10:18 AM SALES PROJECT COORDINATOR) Anatomical Region Laterality Modality Body N/A Computed Tomogra phy 05/21/2024 8:03 AM SALES PROJECT COORDINATOR Narrative 05/21/2024 8:11 AM SALES PROJECT COORDINATOR EXAM DESCRIPTION: CT CHEST WO CONTRAST REASON [...] Recent guidelines by the Fleischner Society (Radiology 571137,2017) divides patient into low vs. high risk [...] immunosuppression, or patients with known primary cancer. http://pubs.rsna.org/doi/pdf/10.1148/radiol.8982517837 THIS IS AN ELECTRONICALLY VERIFIED FINAL REPORT 05/21/2024 8:11 AM - Electronically signed by Kamar Maldonado M.D. MAGDA T: Report ID: [id number] Reading Location: [place] [address] Procedure Note Kamar Maldonado MD - 05/21/2024 [...] Recent guidelines by the Fleischner Society (Radiology 219616,2017)divides patient into low vs. high risk (for [...] immunosuppression, or patients with known primary cancer. http://pubs.rsna.org/doi/pdf/10.1148/radiol.0271733662 THIS IS AN ELECTRONICALLY VERIFIED FINAL REPORT 05/21/2024 8:11 AM - Electronically signed by Kamar MAN T: Report ID: [id number] Reading Location: [place] [address] us Amina Mccray CONCRETE PAVING SUPERVISOR IMG CT PROCEDURES Final R esult * CT Abdomen Pelvis WO Contrast (05/17/2024 10:17 AM SALES PROJECT COORDINATOR) Anatomical Region Laterality Modality Body N/A Computed Tomogra phy 05/21/2024 12:0 5 PM SALES PROJECT COORDINATOR Narrative 05/21/2024 12:15 PM SALES PROJECT COORDINATOR EXAM DESCRIPTION: CT ABDOMEN PELVIS WO CONTRAST [...] Sushila Quintero M.D. TW T: Report ID: [id number] Reading Location: [id number] Procedure Note Sushila Quintero MD - 02/28/2025 [...] Sushila Quintero M.D. TW T: Report ID: [id number] Reading Location: [place] [address] Amina Mccray NP IMG CT PROCEDURES Final [...] compared to prior imaging studies performed at [facility] on 01/03/2021, 01/09/2022 and 06/19/2022. The breasts [...] compared to prior imaging studies performed at [facility] on 01/03/2021, 01/09/2022 and 06/19/2022. The breasts [...] Current interpretive data was last reviewed 2021. [facility], [address] [place] [address], [place]., [address] Blood 07/07/2023 8:36 AM CDT 07/07/2023 9:00 AM CDT Robb Lr MD LAB BLOOD ORDERABLES Final R esult Performing Organization Address [facility] de Phone Number MICHELA [address] [employer] [place] [address] * (ABNORMAL) Hemoglobin A1c (06/11/2023 9:28 AM CDT) Hgb A1C 6.3(H) 4.0 - 5.6 % Estimated Average Glucose 134 mg/dL MICHELA Comment: The ADA recommends reporting an estimated Average Glucose (eAG) with all Hemoglobin A1c results using the equation derived from a study of 507 normal and diabetic adults. Minority populations were underrepresented and children were not included. (Diabetes Care 31:6489-9736, 2008). The eAG is not equivalent to a fasting glucose. Blood 06/11/2023 9:28 AM CDT 06/11/2023 9:40 AM CDT Kamar Gandara DO LAB BLOOD ORDERABLES Final Res ult Performing Organization Address [facility] Co de Phone Number [address] [place] [employer] [place] [address] * Dexa Axial Skeleton Bone Density 1 or 2 Site (09/23/2022 10:06 AM CDT) Anatomical Region Laterality Modality Body N/A Mammography 09/23/2022 3:51 PM CDT Narrative 09/23/2022 3:52 PM CDT EXAM DESCRIPTION: DEXA AXIAL SKELETON BONE DENSITY 1 OR MORE SITES REASON FOR STUDY: 67 y/o year old F with given history of: Postmenopausal status. Patient takes vitamin-D and calcium. History of hysterectomy. Cd Storage And Materials Make Up Helper/Model: Hologic Horizon A ([id number]/N [id number]) CLINICAL INFORMATION: Current height: 62 inches Maximum [...] Sushila Quintero M.D. TW: TW Report ID: [id number] Reading Location: [place] [address] Procedure Note Sushila Quintero MD - 09/23/2022 EXAM DESCRIPTION: DEXA AXIAL SKELETON BONE DENSITY 1 OR MORE SITES REASON FOR STUDY: 67 y/o year old F with given history of:Postmenopausal status. Patient takes vitamin-D and calcium. History of hysterectomy. [employer] Make Up Helper/Model: Hologic Horizon A (S/N [id number]) CLINICAL INFORMATION: Current height: 62 inches Maximum [...] Sushila Quintero M.D. TW: TANYA Report ID: [id number] Reading Location: [id number] us Amina Mccray NP IMG DXA PROCEDURES Final Result * Serum Hepatitis C ab (06/18/2012 10:52 AM CDT) HCV ab Negative NEG HISTORICAL RESULTS Serum 06/18/2012 10:5 2 AM CDT Narrative HISTORICAL RESULTS - 06/19/2012 4:50 AM CDT LAB Frequency Standing Order? No Expiration Date: Interpretive Data If confirmation is required, call Laboratory Customer Service to request sample to be sent to [facility] for Hepatitis C Virus (HCV) RNA Detection and Quantitation by Real-Time Reverse Dumpman-PCR (RT-PCR). Current interpretive data was last revised on 2011 us Rommel Vaughan DO LAB BLOOD ORDERABLES Final Resul t HISTORICAL RESULTS from Last 3 Months or Most Recently Relevant to Health Maintenance Insurance [facility] MEDIC[facility] ADVANTAGE [facility] MEDIC[facility] ADVANTAGE Advance Directives For more information, please contact: [phone] * Full Code (Latest Code Status on File) Date Activated Date Inactivated Comments 07/01/2023 3:35 PM 07/03/2023 6:36 PM Care Teams Law Researcher Relationship Specialty Start Date End Date Amina Mccray NP [address] [place] [address] PCP - General Nurse Practitioner 05/06/24 Dahlia Mendez PA [address] [facility] [address] [place] [address] Orthopedic Surgery 07/01/23
--- OUTSIDE RECORDS SUMMARY | 2024-07-15 11:49 | XMS_ITS | Clinical Summary ---
Author Organization [facility] Address [address] [place] [address] Care Team Providers Care Imaging Tech Name Role Phone Bao Lyons DO Primary Care Provider [phone] Source Comments [facility],non-owned Affiliates and Associated Physician Practices is amultiple site organization consisting of ambulatory clinics and hospital sitesin [place], [place], [place] and [place]. This disclosure is being madepursuant to the Care Everywhere program and may not contain all information available regarding this patient. Last updated 17.[facility] Allergies No known active allergies Medications * [...] on file Legal Sex Female 5:49 PM EXERCISE SPECIALIST Gender Identity Not on file Sexual Orientation Not on file Last Filed Vital Signs Vital Sign Reading Time Taken Comments Blood Pressure 118/70 01/27/2017 6:00 PM EXERCISE SPECIALIST Pulse 83 01/27/2017 6:00 PM EXERCISE SPECIALIST Temperature 36.7 C (98.1 F) 01/27/2017 6:00 PM EXERCISE SPECIALIST Respiratory Rate 17 01/27/2017 6:00 PM EXERCISE SPECIALIST Oxygen Saturation - - Inhaled Oxygen Concentration - - Weight 99.8 kg (220 lb) 01/27/2017 6:00 PM EXERCISE SPECIALIST Height 154.9 cm (5' 1 ) 01/27/2017 6:00 PM EXERCISE SPECIALIST Body Mass Index 41.57 01/27/2017 6:00 PM EXERCISE SPECIALIST Plan of Treatment Health Maintenance Due Date [...] patient's age to complete this topic Insurance [facility] Care Teams Imaging Tech Relationship Specialty Start Date End Date Bao Lyons DO PCP - General Internal Medicine 01/27/17
--- OUTSIDE RECORDS SUMMARY | 2024-07-15 11:49 | XMS_ITS | Clinical Summary ---
Author Organization [facility] Address [address] [place] [address] Care Team Providers Care Automotive Light Mechanic Name Role Phone Unavailable Primary Care Provider [...]
--- OUTSIDE RECORDS SUMMARY | 2024-07-15 11:49 | XMS_ITS | Encounter Summary ---
Author Organization [facility] Address [address] [place] [address] Care Team Providers Care Safety Instructor Name Role Phone SindiDahlia damian Fe LOYA Unavailable [phone] Amina Mccray WOOD BORER Primary Care Provider [phone] Encounter Details Date Type Department Care Team ([facility] Contact Info) Description 07/11/2024 Results Follow-Up [facility] Convenient Care at [address] [address] Padmini Ray NP [address] [place] [address] [address] [place] [address] Social History Tobacco Use Types Packs/Day Years Used Date Smoking Tobacco: Never Passive Smoke Exposure: Past Smokeless Tobacco: Never Alcohol Use Standard Drinks/Week Comments No 0 (1 standard drink = 0.6 oz pur e alcohol) [facility] Utilities Answer Date Recorded In the past 12 months has [employer], gas, oil, or water [employer] threatened to shut off services in your [...] week 07/02/2023 How often do you attend [facility] or taoist services? More than 4 times per year [...] place to sleep or slept in a intermediate (including now)? No 07/02/2023 Personal Safety Answer Date Recorded Have you ever been in or are you currently in a harmful physical or emotional relationship or is someone making you feel afraid or unsafe? Denies 07/01/2023 Comments No Sex and Gender Information Value Date Recorded Sex Assigned at Not on file Legal Sex Female 5:35 PM TELEHEALTH DIRECTOR Gender Identity Not on file Sexual [...] on filedocumented in this encounter Care Teams Safety Instructor Relationship Specialty Start Date End Date Amina Mccray NP [address] [place] [address] PCP - General Nurse Practitioner 05/06/24 Dahlia Mendez PA [address] [place] [address] [place] [address] Orthopedic Surgery 07/01/23 documented as of this encounter
--- OUTSIDE RECORDS SUMMARY | 2024-07-15 11:49 | XMS_ITS | Clinical Summary ---
Author Organization [facility] Address [address] [place] [address] Care Team Providers Care Marine Habitat Resource Specialist Name Role Phone Bao Lyons DO [...] Relevant to Health Maintenance Insurance Care Teams Marine Habitat Resource Specialist Relationship Specialty Start Date End Date Bao Lyons DO [address] [facility] [address] [place] [address] PCP - General Internal Medicine 09/21/18
--- OUTSIDE RECORDS SUMMARY | 2024-07-15 11:49 | XMS_ITS | Clinical Summary ---
Author Organization [facility] al Address [address] [place] [address] Care Team Providers Care Autocad Designer Name Role Phone Andrea Dahlia Miramontes PA Unavailable [phone] Amina Mccray NNPS Primary Care Provider [phone] Allergies Active Allergy Reactions Criticality Noted Date [...] Department Care Team Description 07/11/2024 Results Follow-Up [facility] at [address] [address] Padmini Ray NP 07/09/2024 2:20 PM CDT Ancillary Procedure [facility] Imaging at [address] [address] Acute cough 07/09/2024 2:15 PM CDT Office Visit [facility] at [address] [address] Padmini Ray NP Lower respiratory infection (e.g., bronchitis, pneumonia, pneumonitis, pulmonitis) (Primary Dx); Urinary frequency; Glucosuria 07/09/2024 2:11 AM CDT - 07/09/2024 11:59 PM CDT Hospital Encounter [address] [address] Urinary frequency Discharge Disposition: Discharge to home or self care 07/09/2024 Results Follow-Up [facility] at [address] [address] Padmini Ray NP 05/25/2024 11:45 AM INSPECTING ENGINEER Office Visit [facility] Pulmonology [address] [facility] [address] [place] [address] Jamila Latham MD Obstructive sleep apnea (Primary Dx); Psychophysiological insomnia; Nonsmoker; BMI 37.0-37.9, adult 05/17/2024 9:57 AM INSPECTING ENGINEER - 05/17/2024 11:59 PM INSPECTING ENGINEER Hospital Encounter [address] [address] Hiatal hernia Discharge Disposition: Discharge to home or self care 05/17/2024 9:56 AM INSPECTING ENGINEER - 05/17/2024 11:59 PM INSPECTING ENGINEER Hospital Encounter [facility] [address] [place] [address] Atherosclerosis of artery of lower extremity Discharge [...] drink = 0.6 oz pur e alcohol) [facility] Utilities Answer Date Recorded In [...] often do you attend chur ch or mandaeism services? More than 4 times per year 07/02/2023 Do you belong to any clubs o r organizations such as rastafarian groups, unions, fraternal or athletic groups, or [...] place to sleep or slept in a snf (including now)? No 07/02/2023 Personal Safety Answer Date Recorded Have you ever been in or are you currently in a harmful physical or emotional relationship or is someone making you feel afraid or unsafe? Denies 07/01/2023 Comments No Sex and Gender Information Value Date Recorded Sex Assigned at Not on file Legal Sex Female 5:35 PM INSPECTING ENGINEER Gender Identity Not on file Sexual [...] (205 lb 9.6 oz) 05/25/2024 11:54 AM INSPECTING ENGINEER Height 157.5 cm (5' 2 ) 05/25/2024 11:54 AM INSPECTING ENGINEER Body Mass Index 37.6 05/25/2024 11:54 AM INSPECTING ENGINEER Plan of Treatment Health Maintenance Due Date [...] Completed 06/18/2012 Medical Devices Implanted Type Area Electronic Instrument Trades Worker Device Identifier Shelf Expiration Date Model / Serial / Lot [employer] Attune Cruciate Retain Cementless Knee Right 5 Narrow Component [id number] - [id number] Implanted:Qty: 1 on 07/01/2023 by Kamar Gandara DO at [facility] Right: Knee [employer] [id number] 11/22/2031 [id number] / / [id number] [employer] Attune Fb Tib Base Sz 4 Por [id number] - [id number] Implanted:Qty: 1 on 07/01/2023 by Kamar Gandara DO at [facility] Right: Knee [employer] [id number] 12/22/2031 [id number] / / [id number] [employer] Insert Tibial Knee Fixed Rm Posterior Stabilized Attune 5mm Size 5 Polyethylene [id number] - [id number] Implanted:Qty: 1 on 07/01/2023 by Kamar Gandara DO at [facility] Right: Knee [employer] [id number] 03/23/2031 [id number] / / [id number] Procedures Procedure Name Priority [...] Read Routine (OP Routine) 05/17/2024 10:18 AM INSPECTING ENGINEER Atherosclerosis of artery of lower extremity CT ABDOMEN PELVIS WO CONTRAST Schedule Routine, Read Routine (OP Routine) 05/17/2024 10:17 AM INSPECTING ENGINEER Hiatal hernia SCREENING MAMMOGRAM BILATERAL W PREM [...] signed by Kwesi DENNEY T: Report ID: [id number] Reading Location: [id number] Procedure Note Kwesi Pittman MD - 07/09/2024 [...] signed by Kwesi DENNEY T: Report ID: [id number] Reading Location: [id number] Padmini M. Trower NNPS IMG XR PROCEDURES Final Result * POCT glucose (07/09/2024 2:22 PM CDT) Pathologist [facility] [place] Glucose Blood, POC 150 mg/dL Comment:Just ate at [facility]. Blood 07/09/2024 2:22 PM CDT us Padmini Ray NP POINT OF CARE TEST ORDERABLES Final Result * Urine culture Urine, clean voided (07/09/2024 2:11 PM CDT) Pathologist [facility] [place] Report Final Report: Less than 100,000 colonies/mL (clinically insignificant growth based on current clinical standards) Comment:Testing performed by : [facility], [address] [place]., [address] Organism (CLINICALLY INSIGNIFICANT GROWTH [facility] Urine, clean voided 07/09/2024 2:11 PM CDT 07/10/2024 5:35 AM CDT Narrative MICHELA - 07/11/2024 12:44 PM CDT Testing performed by [facility] Microbiology Laboratory ([phone]) us Padmini Ray NP LAB MICROBIOLOGY - GENERAL ORD ERABLES Final Result [facility] [address] Department [place] [address] * (ABNORMAL) POCT urinalysis dipstick (07/09/2024 2:10 PM CDT) Pathologist [facility] Color, Urine, POC Yellow Clarity, ur, POC Clear Clear Glucose, ur, POC 1000.(A) Negative MG/DL Bilirubin, ur, POC Negative Negative, Small, Moderate, Large Ketones, ur, POC Trace(A) Negative Specific [place], POC 1.020 1.003 - 1.030 Blood, ur, POC Negative Negative pH, ur, POC 6.5 5.0 - 8.0 Protein, ur, POC 100.(A) Negative Urobilinogen, urine, POC 0.2 0.2 - 1.0 mg/dL Nitrite, ur, POC Negative Negative Leukocytes, ur, POC Negative Negative Lot Number [id number] Urine 07/09/2024 2:10 PM CDT Padmini Ray NP POINT OF CARE TEST ORDERABLES Final Result * CT Chest WO Contrast (05/17/2024 10:18 AM INSPECTING ENGINEER) Anatomical Region Laterality Modality Body N/A Computed Tomogra phy 05/21/2024 8:03 AM INSPECTING ENGINEER Narrative 05/21/2024 8:11 AM INSPECTING ENGINEER EXAM DESCRIPTION: CT CHEST WO CONTRAST REASON [...] Recent guidelines by the Fleischner Society (Radiology 248767,2017) divides patient into low vs. high risk [...] immunosuppression, or patients with known primary cancer. http://pubs.rsna.org/doi/pdf/10.1148/radiol.7789507100 THIS IS AN ELECTRONICALLY VERIFIED FINAL REPORT 05/21/2024 8:11 AM - Electronically signed by Kamar Maldonado M.D. MAGDA T: Report ID: [id number] Reading Location: [place] [address] Procedure Note Kamar Maldonado MD - 05/21/2024 [...] Recent guidelines by the Fleischner Society (Radiology 077286,2017)divides patient into low vs. high risk (for [...] immunosuppression, or patients with known primary cancer. http://pubs.rsna.org/doi/pdf/10.1148/radiol.1444993034 THIS IS AN ELECTRONICALLY VERIFIED FINAL REPORT 05/21/2024 8:11 AM - Electronically signed by Kamar MAN T: Report ID: [id number] Reading Location: [place] [address] Amina Diaz Shazia TOMLINSON IMG CT PROCEDURES Final R esult * CT Abdomen Pelvis WO Contrast (05/17/2024 10:17 AM INSPECTING ENGINEER) Anatomical Region Laterality Modality Body N/A Computed Tomogra phy 05/21/2024 12:0 5 PM INSPECTING ENGINEER Narrative 05/21/2024 12:15 PM INSPECTING ENGINEER EXAM DESCRIPTION: CT ABDOMEN PELVIS WO CONTRAST [...] Sushila Quintero M.D. TW T: Report ID: [id number] Reading Location: [id number] Procedure Note Sushila Quintero MD - 05/21/2024 [...] Sushila Quintero M.D. TW T: Report ID: [id number] Reading Location: [place] [address] Amina Mccray NP IMG CT PROCEDURES Final [...] compared to prior imaging studies performed at [facility] on 01/03/2021, 01/09/2022 and 06/19/2022. The breasts [...] compared to prior imaging studies performed at [facility] on 01/03/2021, 01/09/2022 and 06/19/2022. The breasts [...] Current interpretive data was last reviewed 2021. [facility], [address] [place] [address], [place]., [address] Blood 07/07/2023 8:36 AM CDT 07/07/2023 9:00 AM CDT Robb Lr MD LAB BLOOD ORDERABLES Final R esult Performing Organization Address [facility] Co de Phone Number [address] [employer] [place] [address] * (ABNORMAL) Hemoglobin A1c (06/11/2023 9:28 AM CDT) Hgb A1C 6.3(H) 4.0 - 5.6 % Estimated Average Glucose 134 mg/dL MICHELA Comment: The ADA recommends reporting an estimated Average Glucose (eAG) with all Hemoglobin A1c results using the equation derived from a study of 507 normal and diabetic adults. Minority populations were underrepresented and children were not included. (Diabetes Care 31:3929-8588, 2008). The eAG is not equivalent to a fasting glucose. Blood 06/11/2023 9:28 AM CDT 06/11/2023 9:40 AM CDT Kamar Gandara DO LAB BLOOD ORDERABLES Final Res ult Performing Organization Address [facility] Co de Phone Number [address] [employer] [place] [address] * Dexa Axial Skeleton Bone Density 1 or 2 Site (09/23/2022 10:06 AM CDT) Anatomical Region Laterality Modality Body N/A Mammography 09/23/2022 3:51 PM CDT Narrative 09/23/2022 3:52 PM CDT EXAM DESCRIPTION: DEXA AXIAL SKELETON BONE DENSITY 1 OR MORE SITES REASON FOR STUDY: 67 y/o year old F with given history of: Postmenopausal status. Patient takes vitamin-D and calcium. History of hysterectomy. Electronic Instrument Trades Worker/Model: Hologic Horizon A (S/N [id number]) CLINICAL INFORMATION: Current height: 62 inches Maximum [...] Sushila Quintero M.D. TW: TW Report ID: [id number] Reading Location: [id number] Procedure Note Sushila Quintero MD - 09/23/2022 EXAM DESCRIPTION: DEXA AXIAL SKELETON BONE DENSITY 1 OR MORE SITES REASON FOR STUDY: 67 y/o year old F with given history of:Postmenopausal status. Patient takes vitamin-D and calcium. History of hysterectomy. Electronic Instrument Trades Worker/Model: Hologic Horizon A (S/N [id number]) CLINICAL INFORMATION: Current height: 62 inches Maximum [...] Sushila Quintero M.D. TW: TW Report ID: [id number] Reading Location: [id number] us Amina Mccray NNPS IMG DXA PROCEDURES Final Result * Serum Hepatitis C ab (06/18/2012 10:52 AM CDT) HCV ab Negative NEG HISTORICAL RESULTS Serum 06/18/2012 10:5 2 AM CDT Narrative HISTORICAL RESULTS - 06/19/2012 4:50 AM CDT LAB Frequency Standing Order? No Expiration Date: Interpretive Data If confirmation is required, call Laboratory Customer Service to request sample to be sent to [facility] for Hepatitis C Virus (HCV) RNA Detection and Quantitation by Real-Time Reverse Head Cashier-PCR (RT-PCR). Current interpretive data was last revised on 2011 us Rommel Vaughan DO LAB BLOOD ORDERABLES Final Resul t HISTORICAL RESULTS from Last 3 Months or Most Recently Relevant to Health Maintenance Insurance IDPA [facility] MEDICARE [facility] Address: [address] [address] [place] [address] IDPA [facility] MEDICARE [facility] Address: [address] [address] [place] [address] Advance Directives For more information, please contact: [phone] * Full Code (Latest Code Status on File) Date Activated Date Inactivated Comments 07/01/2023 3:35 PM 07/03/2023 6:36 PM Care Teams Autocad Designer Relationship Specialty Start Date End Date Amina Mccray NP [address] [place] [address] PCP - General Nurse Practitioner 05/06/24 Dahlia Mendez PA [address] [place] [address] Orthopedic Surgery 07/01/23
--- OUTSIDE RECORDS SUMMARY | 2024-07-15 11:49 | XMS_ITS | Clinical Summary ---
Author Organization [facility] Address [address] [place] [address] Phone Care Team Providers Care Water Purifier Operator Name Role Phone FlorentinoBao potter Primary Care Provider [phone] Allergies No known active allergies Medications ONGLYZA [...] Comments Blood Pressure 122/82 01/28/2019 9:20 AM VIDEOTAPE OPERATOR Pulse 84 01/28/2019 9:20 AM VIDEOTAPE OPERATOR Temperature 36.2 C (97.1 F) 01/28/2019 9:20 AM VIDEOTAPE OPERATOR Respiratory Rate - - Oxygen Saturation - - Inhaled Oxygen Concentration - - Weight 98 kg (216 lb) 01/28/2019 9:20 AM VIDEOTAPE OPERATOR Height 160 cm (5' 3 ) 01/28/2019 9:20 AM VIDEOTAPE OPERATOR Body Mass Index 38.26 01/28/2019 9:20 AM VIDEOTAPE OPERATOR Plan of Treatment Health Maintenance Due Date Last Done Comments Pneumococcal PPSV23/PCV13 65 + Years / Low and Medium Risk (1 of 4 - PCV) 01/18/2006 Influenza Vaccine (Season Ended) 2024 12/20/19 19 Insurance Care Teams Water Purifier Operator Relationship Specialty Start Date End Date Bao Lyons DO [address] [place] [address] PCP - General Internal Medicine 09/17/18
--- OUTSIDE RECORDS SUMMARY | 2024-07-15 11:49 | XMS_ITS | Encounter Summary ---
Author Organization [facility] Healthcare Address [address] [place] [address] Care Team Providers Care Antique Clock Repairer Name Role Phone SindiDahlia damian Fe LOYA Unavailable [phone] Amina Mccray SYSTEMS TEST ENGINEER Primary Care Provider [phone] Encounter Details Date Type Department Care Team ([facility] Contact Info) Description 07/09/2024 Results Follow-Up [facility] Con[facility]ient Care at [address] [address] Padmini Ray NP [address] [place] [address] [address] [place] [address] Social History Tobacco Use Types Packs/Day Years Used Date Smoking Tobacco: Never Passive Smoke Exposure: Past Smokeless Tobacco: Never Alcohol Use Standard Drinks/Week Comments No 0 (1 standard drink = 0.6 oz pur e alcohol) [facility] Utilities Answer Date Recorded In the past 12 months has [employer], gas, oil, or water [employer] threatened to shut off services in your [...] week 07/02/2023 How often do you attend [facility] or lutheran services? More than 4 times per year 07/02/2023 Do you belong to any clubs o r organizations such as advent groups, unions, fraternal or athletic groups, or [...] on file Legal Sex Female 5:35 PM LAY MIDWIFE Gender Identity Not on file Sexual Orientation Not on file documented as of this encounter Plan of Treatment Not on file documented as of this encounter Visit Diagnoses Not on filedocumented in this encounter Care Teams Antique Clock Repairer Relationship Specialty Start Date End Date Amina Mccray NP [address] [place] [address] PCP - General Nurse Practitioner 05/06/24 Dahlia Mendez PA [address] [place] [address] [place] [address] Orthopedic Surgery 07/01/23 documented as of this encounter
[2024-07-15] MEDS: FUROSEMIDE INJ 40 MG/4 ML VIAL IV PUSH ×2 (11:50→21:15)
[2024-07-15] MEDS: AZITHROMYCIN 500 MG/NS 250 ML 500 MG/250 ML BAG 250 MG IVPB (12:38)
--- NOTE | 2024-07-15 12:44 | PC.NURSE ---
standard heart health diet ordered
--- NOTE | 2024-07-15 13:55 | P.HP_ITS ---
H&P: HPI History of Present Illness Date/Time: 07/15/24 15:00 Chief Complaint: Shortness of breath. Narrative: This is a 69-year-old female with hypertension, hyperlipidemia, mitral valve prolapse, type 2 diabetes mellitus, obstructive sleep apnea, anemia, and gastroesophageal reflux disease who presented to the emergency department via private vehicle with complaints of shortness of breath. She gives a 10 day history of cough which is rarely productive of clear sputum, shortness of breath on lesser and lesser exertion, orthopnea, lower extremity edema, and occasional chest tightness which seems to occur more with shortness of breath. She has had a couple of episodes of post-tussive emesis as well. She denies fever, chills, sweats, sick contacts, pleuritic pain, palpitations, sensations of racing heart, abdominal pain, diarrhea, dysuria, and calf pain. In the ED: Vital signs on arrival include a temperature of 98.1?, blood pressure 166/105, pulse 1 9, respiratory rate 19, SpO2 95% on room air. Labs were significant for WBC count of 10.9, hemoglobin 11.7, glucose 117, lactic acid 1.3, CRP 2.2, proBNP 4930, troponin 0.014. She tested negative for influenza, RSV, and COVID. Chest x-ray showed cardiomegaly with cardiac decompensation pulmonary edema as well as right basilar atelectasis versus pneumonia with possible effusion. EKG showed a sinus tachycardia with incomplete left bundle- branch block, possible anterior and inferior myocardial infarctions of indeterminate age, and borderline ST T-wave abnormalities in the high lateral leads. She was given furosemide 40 mg IV, azithromycin 500 mg, and ceftriaxone 1 g and she is being admitted in this setting for further treatment and evaluation. Review of Systems Review of Systems: 12 systems were reviewed and are negativ e except for as per HPI. COUNTS INCLUDE 234 BEDS AT THE [facility] Past Medical History Medical History Essential hypertension Osteoarthritis Obstructive sleep apnea Type 2 diabetes mellitus Hyperlipidemia Mitral valve prolapse Iron deficiency anemia Vitamin D deficiency Surgical History Surgical History History of hysterectomy for benign disease History of right knee joint replacement History of colonoscopy with polypectomy History of bilateral breast biopsy benign pathology Family History Family History Mother Cerebrovascular accident Father Pneumonia Sibling Acute myocardial infarction Social History Social History Social History: Surrogate medical decision maker: Maria Elena Harrell, linda. Code status: Full code. Smoking status: Former smoker Smoking end date: 03/24/79 Alcohol intake: never Substance use: never Substance use type: does not use Do You Feel Safe in your Home?: Yes Lack of Transportation: No Lack of Food: Never True Current Housing: I Have Housing Concerned About Future Housing: No Difficulty Paying Gas/Electric Bills: No Difficulty Paying for Meds: No Currently Unemployed: No Education: High School Diploma/GED Difficulty w/ Childcare or Family Care: No Living arrangements: alone Spiritual care concerns: No Meds Home Medications and Allergies Home Medications ?Medication ?Instructions ?Recorded ?Confirmed ?Type amlodipine 10 mg tablet 10 mg PO DAILY #90 tabs 08/11/20 07/15/24 Rx atorvastatin 20 mg tablet 20 mg PO QHS #90 tabs 04/17/21 07/15/24 Rx lancets (Accu-Chek Softclix #100 ea 06/14/21 07/15/24 Rx Lancets) blood-glucose meter (Accu-Chek #1 ea 06/15/21 07/15/24 Rx Guide Glucose Meter) losartan 100 mg tablet 100 mg PO DAILY #90 tabs 08/09/21 07/15/24 Rx blood sugar diagnostic (Accu-Chek #100 ea 11/11/22 07/15/24 Rx Guide test strips) calcitriol 0.25 mcg capsule 0.25 mcg PO DAILY 03/04/24 07/15/24 History dapagliflozin propanediol 10 mg 10 mg PO DAILY 03/04/24 07/15/24 History tablet (Farxiga) dulaglutide 1.5 mg/0.5 mL 1.5 mg subcut WEEKLY 03/04/24 07/15/24 History subcutaneous pen injector (Trulicity) ergocalciferol (vitamin D2) 1,250 50,000 unit PO WEEKLY 03/04/24 07/15/24 History mcg (50,000 unit) capsule linaclotide 72 mcg capsule 145 mcg PO DAILY PRN constipation 03/04/24 07/15/24 History (Nanod) Allergies Allergy/AdvReac Type Severity Reaction Status Date / Time shellfish derived Allergy Itching Verified 07/15/24 09:55 adhesive tape AdvReac Itching Verified 07/15/24 09:55 Vital Signs Vital Signs - 24 hr 07/15/24 09:42 07/15/24 09:42 07/15/24 10:29 Temperature 98.1 F Pulse Rate 109 H Respiratory Rate 14 Blood Pressure 166/105 H Pulse Oximetry 95 95 94 Oxygen Delivery Room Air Room Air Room Air 07/15/24 10:39 07/15/24 10:46 07/15/24 11:01 Temperature Pulse Rate 83 97 Respiratory Rate 27 H 22 H 28 H Blood Pressure 156/89 H 157/96 H 157/94 H Pulse Oximetry 94 94 93 Oxygen Delivery 07/15/24 12:05 07/15/24 12:39 07/15/24 12:44 Temperature Pulse Rate 110 H 97 99 Respiratory Rate 26 H 24 H Blood Pressure 157/94 H Pulse Oximetry 95 100 Oxygen Delivery 07/15/24 13:47 Temperature Pulse Rate 105 H Respiratory Rate 22 H Blood Pressure Pulse Oximetry 95 Oxygen Delivery Exam Narrative: General: Well-developed, nontoxic-appearing female in the semi-Caldera position i n no acute distress. Weight: 93.7 kg BMI: 37.8. HEENT: PERRL, EOMI. Sclera anicteric. Oral mucosa moist. Neck: Supple. No JVD. Respiratory: Respirations are nonlabored and she is speaking in full sentences. Fine crackles heard at the bases. Cardiovascular: Regular rate and rhythm with gallop. Gastrointestinal: Abdomen is soft, nontender, and nondistended with positive bowel sounds. Skin: Warm and dry. No rash or lesions on limited exam. Extremities: No cyanosis or clubbing. Bilateral lower extremity edema. No palpable knots or cords. Negative Vasquez sign bilaterally. Radial and pedal pulses intact. Neurological: Alert. Cranial nerves 2-12 are grossly intact. No gross focal deficits to casual conversation. Psychiatric: Pleasant and cooperative with normal mood and affect. Judgment and insight intact. H&P: Results Labs Labs: Short CBC 07/15/24 Range/Units 09:56 WBC 10.9 H (4.5-10.0) K/mm3 Hgb 11.7 L (12.0-15.0) g/dL Hct 37.7 (37.0-47.0) % Plt Count 386 H (150-375) k/mm3 BMP 07/15/24 09:56 Sodium 140 Potassium 3.8 Chloride 102 Carbon Dioxide 26 BUN 13 Creatinine 0.92 Glucose 117 H Calcium 9.1 Cardiac Enzymes 07/15/24 Range/Units 09:56 Troponin I 0.014 (0.000-0.034) ng/mL Liver Function 07/15/24 Range/Units 09:56 Total Bilirubin 0.5 (0.2-1.3) mg/dL AST 26 (14-36) U/L ALT 30 (6-35) U/L Alkaline Phosphatase 90 (38-126) U/L Albumin 4.1 (3.5-5.1) g/dL Imaging Chest X-Ray 07/15/24 10:48 IMPRESSION: Cardiomegaly with cardiac decompensation and pulmonary edema. Right basilar atelectasis versus pneumonia with possible effusion. Assessment and Plan Assessment and plan (1) Suspected congestive heart failure: Code(s): R09.89 - Other specified symptoms and signs involving the circulatory and respiratory systems Status: Acute (2) Essential hypertension: Code(s): I10 - Essential (primary) hypertension Status: Acute (3) Type 2 diabetes mellitus: Code(s): E11.9 - Type 2 diabetes mellitus without complications Status: Acute (4) Anemia: Qualifiers: Anemia type: unspecified type Qualified Code(s): D64.9 - Anemia, unspecified Code(s): D64.9 - Anemia, unspecified Status: Acute (5) Obstructive sleep apnea: Code(s): G47.33 - Obstructive sleep apnea (adult) (pediatric) Status: Acute Plan The patient presents emergency department with complaints of cough and shortness of breath and has been ongoing of for about 10 days as detailed in HPI. Labs, im aging, EKG, and all reports were personally reviewed. She has been taking antibiotics and cough syrup for about 5 days for possible pneumonia however that seems less likely; she is afebrile and has a normal WBC count. Chest x-ray findings are more concerning for congestive heart failure with cardiomegaly and pulmonary edema and her history seems to fit more so with that with orthopnea, lower extremity edema, and elevated proBNP. She will be diuresed with close monitoring of volume status, renal function, and electrolytes. Echocardiogram is pending. Blood pressures have been running high but should improve with diuresis. Continued dapagliflozin. Initiate sliding scale insulin, Accu-Cheks, and hypoglycemic protocol. Check hemoglobin A1c. She has chronic, mild anemia stable on review of previous labs. CPAP will be provided for the patient to use while hospitalized though she has fallen out of favor of using that at home. Medications will be reviewed and resumed as appropriate. Findings and treatment plan were discussed with the patient. Questions were solicited and answered to satisfaction. The patient's medical management will be taken over by the hospitalist team in a.m. Quality VTE Prophylaxis VTE prophylaxis: pharmacologic ordered The patient has been admitted under observation status. Hospitalist MIPS Advance Care Plan I have confirmed that the patient's Advanced Care Plan is present, code status is documented, or surrogate decision maker is listed in patient medical record.: Yes Medication Reconciliation I have utilized all available resources to obtain, update and review the patients current medications (includes all prescriptions, OTC, herbals, cannabis, and nutritional supplements).: Yes
--- NOTE | 2024-07-15 14:10 | ADMGEN ---
This patient, Lindsay Pedersen, was admitted to Virtual Bed IMU-1. Patient/family oriented to hospital policies and general routines including ID bracelet, bed and alarms, visiting hours, pain management, procedures, bathroom and other care routines, personal items, smoking policy, room service/diet, and visiting hours. Information on how to activate the Rapid Response Team has been discussed. Patient/Family are encouraged to report perceived risks to care and to ask questions if they do not understand what they are told or what they should do.
--- OUTSIDE RECORDS SUMMARY | 2024-07-15 15:40 | XMS_ITS | Clinical Summary ---
Author Organization [facility] al Address [address] [place] [address] Care Team Providers Care Faith Healer Name Role Phone Andrea Dahlia Miramontes PA Unavailable [phone] Amina Mccray PRODUCTION CONTROL TECHNOLOGIST Primary Care Provider [phone] Allergies Active Allergy Reactions Criticality Noted Date [...] Department Care Team Description 07/11/2024 Results Follow-Up [facility] at [address] [address] Padmini Ray NP 07/09/2024 2:20 PM CDT Ancillary Procedure [facility] Imaging at [address] [address] Acute cough 07/09/2024 2:15 PM CDT Office Visit [facility] at [address] [address] Padmini Ray NP Lower respiratory infection (e.g., bronchitis, pneumonia, pneumonitis, pulmonitis) (Primary Dx); Urinary frequency; Glucosuria 07/09/2024 2:11 AM CDT - 07/09/2024 11:59 PM CDT Hospital Encounter [address] [address] Urinary frequency Discharge Disposition: Discharge to home or self care 07/09/2024 Results Follow-Up [facility] at [address] [address] Padmini Ray NP 05/25/2024 11:45 AM RESPIRATORY CARE SPECIALIST Office Visit [facility] Pulmonology [address] [place] [address] Jamila Latham MD Obstructive sleep apnea (Primary Dx); Psychophysiological insomnia; Nonsmoker; BMI 37.0-37.9, adult 05/17/2024 9:57 AM RESPIRATORY CARE SPECIALIST - 05/17/2024 11:59 PM RESPIRATORY CARE SPECIALIST Hospital Encounter [address] [address] Hiatal hernia Discharge Disposition: Discharge to home or self care 05/17/2024 9:56 AM RESPIRATORY CARE SPECIALIST - 05/17/2024 11:59 PM RESPIRATORY CARE SPECIALIST Hospital Encounter [facility] [place] [address] [place] [id number] Atherosclerosis of artery of lower extremity Discharge [...] = 0.6 oz pur e alcohol) [facility] Utilities Answer Date Recorded In the [...] any clubs o r organizations such as episcopalian groups, unions, fraternal or athletic groups, or [...] file Legal Sex Female 5:35 PM RESPIRATORY CARE SPECIALIST Gender Identity Not on file Sexual [...] (205 lb 9.6 oz) 05/25/2024 11:54 AM RESPIRATORY CARE SPECIALIST Height 157.5 cm (5' 2 ) 05/25/2024 11:54 AM RESPIRATORY CARE SPECIALIST Body Mass Index 37.6 05/25/2024 11:54 AM RESPIRATORY CARE SPECIALIST Plan of Treatment Health Maintenance Due [...] Completed 06/18/2012 Medical Devices Implanted Type Area Manager Performance Device Identifier Shelf Expiration Date Model / Serial / Lot [employer] Attune Cruciate Retain Cementless Knee Right 5 Narrow Component [id number] - [id number] Implanted:Qty: 1 on 07/01/2023 by Kamar Gandara DO at [facility] Right: Knee [employer] [id number] 11/22/2031 [id number] / / [id number] [employer] Attune Fb Tib Base Sz 4 Por [id number] - [id number] Implanted:Qty: 1 on 07/01/2023 by Kamar Gandara DO at [facility] Right: Knee [employer] [id number] 12/22/2031 [id number] / / [id number] [employer] Insert Tibial Knee Fixed Rm Posterior Stabilized Attune 5mm Size 5 Polyethylene [id number] - [id number] Implanted:Qty: 1 on 07/01/2023 by Kamar Gandara DO at [facility] Right: Knee [employer] [id number] 03/23/2031 [id number] / / [id number] Procedures Procedure Name Priority [...] Read Routine (OP Routine) 05/17/2024 10:18 AM RESPIRATORY CARE SPECIALIST Atherosclerosis of artery of lower extremity CT ABDOMEN PELVIS WO CONTRAST Schedule Routine, Read Routine (OP Routine) 05/17/2024 10:17 AM RESPIRATORY CARE SPECIALIST Hiatal hernia SCREENING MAMMOGRAM BILATERAL W PREM [...] signed by Kwesi DENNEY T: Report ID: [id number] Reading Location: [id number] Procedure Note Kwesi Pittman MD - 07/09/2024 [...] signed by Kwesi DENNEY T: Report ID: [id number] Reading Location: [id number] Padmini M. Trower PRODUCTION CONTROL TECHNOLOGIST IMG XR PROCEDURES Final Result * POCT glucose (07/09/2024 2:22 PM CDT) Pathologist [facility] Glucose Blood, POC 150 mg/dL Comment:Just ate at [employer]. Blood 07/09/2024 2:22 PM CDT us Padmini Ray NP POINT OF CARE TEST ORDERABLES Final Result * Urine culture Urine, clean voided (07/09/2024 2:11 PM CDT) Pathologist [facility] Report Final Report: Less than 100,000 colonies/mL (clinically insignificant growth based on current clinical standards) Comment:Testing performed by : [facility], [address] [place]., [address] Organism (CLINICALLY INSIGNIFICANT [facility] Urine, clean voided 07/09/2024 2:11 PM CDT 07/10/2024 5:35 AM CDT Narrative MICHELA - 07/11/2024 12:44 PM CDT Testing performed by [facility] Microbiology Laboratory ([phone]) us Padmini Ray NP LAB MICROBIOLOGY - GENERAL ORD ERABLES Final Result [facility] [address] [address] Department of [place] [address] * (ABNORMAL) POCT urinalysis dipstick (07/09/2024 2:10 PM CDT) Pathologist [facility] Color, Urine, POC Yellow Clarity, ur, POC Clear Clear Glucose, ur, POC 1000.(A) Negative MG/DL Bilirubin, ur, POC Negative Negative, Small, Moderate, Large Ketones, ur, POC Trace(A) Negative Specific [place], POC 1.020 1.003 - 1.030 Blood, ur, POC Negative Negative pH, ur, POC 6.5 5.0 - 8.0 Protein, ur, POC 100.(A) Negative Urobilinogen, urine, POC 0.2 0.2 - 1.0 mg/dL Nitrite, ur, POC Negative Negative Leukocytes, ur, POC Negative Negative Lot Number [id number] Urine 07/09/2024 2:10 PM CDT Padmini Ray NP POINT OF CARE TEST ORDERABLES Final Result * CT Chest WO Contrast (05/17/2024 10:18 AM RESPIRATORY CARE SPECIALIST) Anatomical Region Laterality Modality Body N/A Computed Tomogra phy 05/21/2024 8:03 AM RESPIRATORY CARE SPECIALIST Narrative 05/21/2024 8:11 AM RESPIRATORY CARE SPECIALIST EXAM DESCRIPTION: CT CHEST WO CONTRAST REASON [...] Recent guidelines by the Fleischner Society (Radiology 746279,2017) divides patient into low vs. high risk [...] immunosuppression, or patients with known primary cancer. http://pubs.rsna.org/doi/pdf/10.1148/radiol.1812243728 THIS IS AN ELECTRONICALLY VERIFIED FINAL REPORT 05/21/2024 8:11 AM - Electronically signed by Kamar Maldonado M.D. MAGDA T: Report ID: [id number] Reading Location: [place] [address] Procedure Note Kamar Maldonado MD - 05/21/2024 [...] Recent guidelines by the Fleischner Society (Radiology 752256,2017)divides patient into low vs. high risk (for [...] immunosuppression, or patients with known primary cancer. http://pubs.rsna.org/doi/pdf/10.1148/radiol.9949399391 THIS IS AN ELECTRONICALLY VERIFIED FINAL REPORT 05/21/2024 8:11 AM - Electronically signed by Kamar MAN T: Report ID: [id number] Reading Location: [place] [address] Amina Diaz Shazia TOMLINSON IMG CT PROCEDURES Final R esult * CT Abdomen Pelvis WO Contrast (05/17/2024 10:17 AM RESPIRATORY CARE SPECIALIST) Anatomical Region Laterality Modality Body N/A Computed Tomogra phy 05/21/2024 12:0 5 PM RESPIRATORY CARE SPECIALIST Narrative 05/21/2024 12:15 PM RESPIRATORY CARE SPECIALIST EXAM DESCRIPTION: CT ABDOMEN PELVIS WO CONTRAST [...] Sushila Quintero M.D. TW T: Report ID: [id number] Reading Location: [id number] Procedure Note Sushila Quintero MD - 05/21/2024 [...] Sushila Quintero M.D. TW T: Report ID: [id number] Reading Location: [place] [address] Amina Mccray NP IMG CT PROCEDURES Final [...] compared to prior imaging studies performed at [facility] on 01/03/2021, 01/09/2022 and 06/19/2022. The [...] compared to prior imaging studies performed at [facility] on 01/03/2021, 01/09/2022 and 06/19/2022. The [...] data was last reviewed 2021. [facility], [address] [place] [address], [place]., [address] Blood 07/07/2023 8:36 AM CDT 07/07/2023 9:00 AM CDT Robb Lr MD LAB BLOOD ORDERABLES Final R esult Performing Organization Address [facility] Co de Phone Number [address] [employer] [address] * (ABNORMAL) Hemoglobin A1c (06/11/2023 9:28 AM CDT) Hgb A1C 6.3(H) 4.0 - 5.6 % Estimated Average Glucose 134 mg/dL MICHELA Comment: The ADA recommends reporting an estimated Average Glucose (eAG) with all Hemoglobin A1c results using the equation derived from a study of 507 normal and diabetic adults. Minority populations were underrepresented and children were not included. (Diabetes Care 31:1467-2878, 2008). The eAG is not equivalent to a fasting glucose. Blood 06/11/2023 9:28 AM CDT 06/11/2023 9:40 AM CDT Kamar Gandara DO LAB BLOOD ORDERABLES Final Res ult Performing Organization Address [facility] Co de Phone Number [address] [employer] [address] * Dexa Axial Skeleton Bone Density 1 or 2 Site (09/23/2022 10:06 AM CDT) Anatomical Region Laterality Modality Body N/A Mammography 09/23/2022 3:51 PM CDT Narrative 09/23/2022 3:52 PM CDT EXAM DESCRIPTION: DEXA AXIAL SKELETON BONE DENSITY 1 OR MORE SITES REASON FOR STUDY: 67 y/o year old F with given history of: Postmenopausal status. Patient takes vitamin-D and calcium. History of hysterectomy. Manager Performance/Model: Hologic Horizon A (S/N [id number]) CLINICAL INFORMATION: Current height: 62 inches Maximum [...] Sushila Quintero M.D. TW: TW Report ID: [id number] Reading Location: [id number] Procedure Note Sushila Quintero MD - 09/23/2022 EXAM DESCRIPTION: DEXA AXIAL SKELETON BONE DENSITY 1 OR MORE SITES REASON FOR STUDY: 67 y/o year old F with given history of:Postmenopausal status. Patient takes vitamin-D and calcium. History of hysterectomy. Manager Performance/Model: Hologic Horizon A (S/N [id number]) CLINICAL INFORMATION: Current height: 62 inches Maximum [...] Sushila Quintero M.D. TW: TW Report ID: [id number] Reading Location: [id number] us Amina Mccray PRODUCTION CONTROL TECHNOLOGIST IMG DXA PROCEDURES Final Result * Serum Hepatitis C ab (06/18/2012 10:52 AM CDT) HCV ab Negative NEG HISTORICAL RESULTS Serum 06/18/2012 10:5 2 AM CDT Narrative HISTORICAL RESULTS - 06/19/2012 4:50 AM CDT LAB Frequency Standing Order? No Expiration Date: Interpretive Data If confirmation is required, call Laboratory Customer Service to request sample to be sent to [facility] for Hepatitis C Virus (HCV) RNA Detection and Quantitation by Real-Time Reverse Manager Medicaid-PCR (RT-PCR). Current interpretive data was last revised on 2011 us Rommel Vaughan DO LAB BLOOD ORDERABLES Final Resul t HISTORICAL RESULTS from Last 3 Months or Most Recently Relevant to Health Maintenance Insurance [facility]PA [facility] MEDICARE ADVANTAGE IDPA [facility] MEDICARE ADVANTAGE Advance Directives For more information, please contact: [phone] * Full Code (Latest Code Status on File) Date Activated Date Inactivated Comments 07/01/2023 3:35 PM 07/03/2023 6:36 PM Care Teams Faith Healer Relationship Specialty Start Date End Date Amina Mccray NP [address] [place] [address] PCP - General Nurse Practitioner 05/06/24 Dahlia Mendez PA [address] [place] [address] Orthopedic Surgery 07/01/23
--- OUTSIDE RECORDS SUMMARY | 2024-07-15 15:40 | XMS_ITS | Clinical Summary ---
Author Organization [facility] Address [address] [place] [address] Care Team Providers Care Community Product Specialist Name Role Phone Bao Lyons DO Primary Care Provider [phone] Source Comments [facility],non-owned Affiliates and Associated Physician Practices is amultiple site organization consisting of ambulatory clinics and hospital sitesin [place], [place], [place] and [place]. This disclosure is being madepursuant to the Care Everywhere program and may not contain all information available regarding this patient. Last updated 17.[facility] Allergies No known active allergies Medications * [...] on file Legal Sex Female 5:49 PM LADLE FILLER Gender Identity Not on file Sexual Orientation Not on file Last Filed Vital Signs Vital Sign Reading Time Taken Comments Blood Pressure 118/70 01/27/2017 6:00 PM LADLE FILLER Pulse 83 01/27/2017 6:00 PM LADLE FILLER Temperature 36.7 C (98.1 F) 01/27/2017 6:00 PM LADLE FILLER Respiratory Rate 17 01/27/2017 6:00 PM LADLE FILLER Oxygen Saturation - - Inhaled Oxygen Concentration - - Weight 99.8 kg (220 lb) 01/27/2017 6:00 PM LADLE FILLER Height 154.9 cm (5' 1 ) 01/27/2017 6:00 PM LADLE FILLER Body Mass Index 41.57 01/27/2017 6:00 PM LADLE FILLER Plan of Treatment Health Maintenance Due Date [...] patient's age to complete this topic Insurance [facility] Care Teams Community Product Specialist Relationship Specialty Start Date End Date Bao Lyons DO PCP - General Internal Medicine 01/27/17
--- OUTSIDE RECORDS SUMMARY | 2024-07-15 15:40 | XMS_ITS | Encounter Summary ---
Author Organization [facility] Healthcare Address [address] [place] [address] Care Team Providers Care Manager Recovery Name Role Phone SindiDahlia damian Fe LOYA Unavailable [phone] Amina Mccray TELEPHONE SUPERVISOR Primary Care Provider [phone] Encounter Details Date Type Department Care Team ([facility] Contact Info) Description 07/09/2024 Results Follow-Up [facility] Medical Group Convenient Care at [address] [address] Padmini Ray NP [address] [place] [address] [address] [place] [address] Social History Tobacco Use Types Packs/Day Years Used Date Smoking Tobacco: Never Passive Smoke Exposure: Past Smokeless Tobacco: Never Alcohol Use Standard Drinks/Week Comments No 0 (1 standard drink = 0.6 oz pur e alcohol) [facility] Utilities Answer Date Recorded In the past 12 months has [employer], gas, oil, or water [employer] threatened to shut off services in your [...] often do you attend [facility] center or scientologist services? More than 4 times per year 07/02/2023 Do you belong to any clubs o r organizations such as christian groups, unions, fraternal or athletic groups, or [...] place to sleep or slept in a chcf (including now)? No 07/02/2023 Personal Safety Answer Date Recorded Have you ever been in or are you currently in a harmful physical or emotional relationship or is someone making you feel afraid or unsafe? Denies 07/01/2023 Comments No Sex and Gender Information Value Date Recorded Sex Assigned at Not on file Legal Sex Female 5:35 PM VENTILATION MECHANIC Gender Identity Not on file Sexual Orientation Not on file documented as of this encounter Plan of Treatment Not on file documented as of this encounter Visit Diagnoses Not on filedocumented in this encounter Care Teams Manager Recovery Relationship Specialty Start Date End Date Amina Mccray NP [address] [place] [address] PCP - General Nurse Practitioner 05/06/24 Dahlia Mendez PA [address] [facility] [address] [place] [address] [place] [address] Orthopedic Surgery 07/01/23 documented as of this encounter
--- OUTSIDE RECORDS SUMMARY | 2024-07-15 15:40 | XMS_ITS | Clinical Summary ---
Author Organization [facility] Address [address] [place] [address] Phone Care Team Providers Care Sharepoint Developer Name Role Phone FlorentinoBao potter Primary Care Provider [phone] Allergies No known active allergies Medications ONGLYZA [...] Comments Blood Pressure 122/82 01/28/2019 9:20 AM SEED SORTER Pulse 84 01/28/2019 9:20 AM SEED SORTER Temperature 36.2 C (97.1 F) 01/28/2019 9:20 AM SEED SORTER Respiratory Rate - - Oxygen Saturation - - Inhaled Oxygen Concentration - - Weight 98 kg (216 lb) 01/28/2019 9:20 AM SEED SORTER Height 160 cm (5' 3 ) 01/28/2019 9:20 AM SEED SORTER Body Mass Index 38.26 01/28/2019 9:20 AM SEED SORTER Plan of Treatment Health Maintenance Due Date Last Done Comments Pneumococcal PPSV23/PCV13 65 + Years / Low and Medium Risk (1 of 4 - PCV) 01/18/2006 Influenza Vaccine (Season Ended) 2024 12/20/19 19 Insurance Care Teams Sharepoint Developer Relationship Specialty Start Date End Date Bao Lyons DO [address] [place] [address] PCP - General Internal Medicine 09/17/18
--- OUTSIDE RECORDS SUMMARY | 2024-07-15 15:40 | XMS_ITS | Encounter Summary ---
Author Organization [facility] Healthcare Address [address] [place] [address] Care Team Providers Care Financial Secretary Name Role Phone SindiDahlia damian Fe LOYA Unavailable [phone] Amina Mccray SOLID WASTE COLLECTOR Primary Care Provider [phone] Encounter Details Date Type Department Care Team ([facility] Contact Info) Description 07/11/2024 Results Follow-Up [facility] Medical Group Convenient Care at [address] [address] Padmini Ray NP [address] [place] [address] [address] [place] [address] Social History Tobacco Use Types Packs/Day Years Used Date Smoking Tobacco: Never Passive Smoke Exposure: Past Smokeless Tobacco: Never Alcohol Use Standard Drinks/Week Comments No 0 (1 standard drink = 0.6 oz pur e alcohol) [facility] Utilities Answer Date Recorded In the past 12 months has [employer], gas, oil, or water [employer] threatened to shut off services in your [...] week 07/02/2023 How often do you attend [facility] or roman catholic services? More than 4 times per year 07/02/2023 Do you belong to any clubs o r organizations such as hoahaoism groups, unions, fraternal or athletic groups, or [...] on file Legal Sex Female 5:35 PM PHYSICS PROFESSOR Gender Identity Not on file Sexual [...] on filedocumented in this encounter Care Teams Financial Secretary Relationship Specialty Start Date End Date Amina Mccray NP [address] [place] [address] PCP - General Nurse Practitioner 05/06/24 Dahlia Mendez PA [address] [place] [place] [address] Orthopedic Surgery 07/01/23 documented as of this encounter
--- OUTSIDE RECORDS SUMMARY | 2024-07-15 15:40 | XMS_ITS | Referral Summary ---
Author Organization [facility] al Address [address] [place] [address] Care Team Providers Care Speech Scientist Name Role Phone Dahlia Mendez Fe LOYA Unavailable [phone] Amina Mccray PAPER BALER Primary Care Provider [phone] Encounters Date Type Department Care Team Description 07/11/2024 Results Follow-Up [facility] Medical Group Convenient Care at [address] [address] Padmini Ray NP 07/09/2024 2:11 AM CDT - 07/09/2024 11:59 PM CDT Hospital Encounter [address] [address] Urinary frequency Discharge Disposition: Discharge to home or self care 07/09/2024 Results Follow-Up [facility] Medical Group Convenient Care at [address] [address] Padmini Ray NP 07/09/2024 2:20 PM CDT Ancillary Procedure [facility] Medical Group Imaging at [address] [address] Acute cough 07/09/2024 2:15 PM CDT Office Visit [facility] Medical Group Convenient Care at [address] [address] Padmini Ray NP Lower respiratory infection (e.g., bronchitis, pneumonia, pneumonitis, pulmonitis) (Primary Dx); Urinary frequency; Glucosuria 05/25/2024 11:45 AM WOODWORKER Office Visit [facility] Medical Group Pulmonology [address] [facility] [address] [place] [address] Jamila Latham MD Obstructive sleep apnea (Primary Dx); Psychophysiological insomnia; Nonsmoker; BMI 37.0-37.9, adult 05/17/2024 9:57 AM WOODWORKER - 05/17/2024 11:59 PM WOODWORKER Hospital Encounter [facility] [address] [place] [address] Hiatal hernia Discharge Disposition: Discharge to home or self care 05/17/2024 9:56 AM WOODWORKER - 05/17/2024 11:59 PM WOODWORKER Hospital Encounter [address] [address] Atherosclerosis of artery of lower extremity Discharge [...] drink = 0.6 oz pur e alcohol) [facility] Utilities Answer Date Recorded In the past 12 months has [employer], [employer], or water [employer] threatened to shut off services in your [...] How often do you attend chur or spiritism services? More than 4 times per year [...] on file Legal Sex Female 5:35 PM WOODWORKER Gender Identity Not on file Sexual Orientation [...] (205 lb 9.6 oz) 05/25/2024 11:54 AM WOODWORKER Height 157.5 cm (5' 2 ) 05/25/2024 11:54 AM WOODWORKER Body Mass Index 37.6 05/25/2024 11:54 AM WOODWORKER Plan of Treatment Not on file Medical Devices Implanted Type Area Vendor Relationship Manager Device Identifier Shelf Expiration Date Model / Serial / Lot [employer] Attune Cruciate Retain Cementless Knee Right 5 Narrow Component [id number] - [id number] Implanted:Qty: 1 on 07/01/2023 by Kamar Gandara DO at [facility] Right: Knee [employer] [id number] 11/22/2031 [id number] / / [id number] [employer] Attune Fb Tib Base Sz 4 Por [id number] - [id number] Implanted:Qty: 1 on 07/01/2023 by Kamar Gandara DO at [facility] Right: Knee [employer] [id number] 12/22/2031 [id number] / / [id number] [employer] Insert Tibial Knee Fixed Rm Posterior Stabilized Attune 5mm Size 5 Polyethylene [id number] - [id number] Implanted:Qty: 1 on 07/01/2023 by Kamar Gandara DO at [facility] Right: Knee [employer] [id number] 03/23/2031 [id number] / / [id number] Procedures Procedure Name Priority [...] Read Routine (OP Routine) 05/17/2024 10:18 AM WOODWORKER Atherosclerosis of artery of lower extremity CT ABDOMEN PELVIS WO CONTRAST Schedule Routine, Read Routine (OP Routine) 05/17/2024 10:17 AM WOODWORKER Hiatal hernia SCREENING MAMMOGRAM BILATERAL W PREM [...] signed by Kwesi DENNEY T: Report ID: [id number] Reading Location: [id number] Procedure Note Kwesi Pittman MD - 07/09/2024 [...] signed by Kwesi DENNEY T: Report ID: [id number] Reading Location: [id number] Padmini Ray PAPER BALER IMG XR PROCEDURES Final Result * POCT glucose (07/09/2024 2:22 PM CDT) Pathologist [facility] Glucose Blood, POC 150 mg/dL Comment:Just ate at [employer]. Blood 07/09/2024 2:22 PM CDT Padmini Ray NP POINT OF CARE TEST ORDERABLES Final Result * Urine culture Urine, clean voided (07/09/2024 2:11 PM CDT) Report Final Report: Less than 100,000 colonies/mL (clinically insignificant growth based on current clinical standards) Comment:Testing performed by : [facility], [address] [place]., [address] Organism (CLINICALLY INSIGNIFICANT GROWTH [facility] Urine, clean voided 07/09/2024 2:11 PM CDT 07/10/2024 5:35 AM CDT Narrative MICHELA - 07/11/2024 12:44 PM CDT Testing performed by [facility] Microbiology Laboratory ([phone]) Padmini Ray NP LAB MICROBIOLOGY - GENERAL ORD ERABLES Final Result MIC[facility] [address] [address] [facility] [place] [address] * (ABNORMAL) POCT urinalysis dipstick (07/09/2024 2:10 PM CDT) Pathologist [facility] Color, Urine, POC Yellow Clarity, ur, POC Clear Clear Glucose, ur, POC 1000.(A) Negative MG/DL Bilirubin, ur, POC Negative Negative, Small, Moderate, Large Ketones, ur, POC Trace(A) Negative Specific [place], POC 1.020 1.003 - 1.030 Blood, ur, POC Negative Negative pH, ur, POC 6.5 5.0 - 8.0 Protein, ur, POC 100.(A) Negative Urobilinogen, urine, POC 0.2 0.2 - 1.0 mg/dL Nitrite, ur, POC Negative Negative Leukocytes, ur, POC Negative Negative Lot Number [id number] Urine 07/09/2024 2:10 PM CDT Padmini Ray NP POINT OF CARE TEST ORDERABLES Final Result * CT Chest WO Contrast (05/17/2024 10:18 AM WOODWORKER) Anatomical Region Laterality Modality Body N/A Computed Tomogra phy 05/21/2024 8:03 AM WOODWORKER Narrative 05/21/2024 8:11 AM WOODWORKER EXAM DESCRIPTION: CT CHEST WO CONTRAST REASON [...] Recent guidelines by the Fleischner Society (Radiology 821711,2017) divides patient into low vs. high risk [...] immunosuppression, or patients with known primary cancer. http://pubs.rsna.org/doi/pdf/10.1148/radiol.2754044580 THIS IS AN ELECTRONICALLY VERIFIED FINAL REPORT 05/21/2024 8:11 AM - Electronically signed by Kamar Maldonado M.D. MAGDA T: Report ID: [id number] Reading Location: [place] [address] Procedure Note Kamar Maldonado MD - 05/21/2024 [...] Recent guidelines by the Fleischner Society (Radiology 416467,2017)divides patient into low vs. high risk (for [...] immunosuppression, or patients with known primary cancer. http://pubs.rsna.org/doi/pdf/10.1148/radiol.0612589311 THIS IS AN ELECTRONICALLY VERIFIED FINAL REPORT 05/21/2024 8:11 AM - Electronically signed by Kamar MAN T: Report ID: [id number] Reading Location: [place] [address] us Amina Mccray PAPER BALER IMG CT PROCEDURES Final R esult * CT Abdomen Pelvis WO Contrast (05/17/2024 10:17 AM WOODWORKER) Anatomical Region Laterality Modality Body N/A Computed Tomogra phy 05/21/2024 12:0 5 PM WOODWORKER Narrative 05/21/2024 12:15 PM WOODWORKER EXAM DESCRIPTION: CT ABDOMEN PELVIS WO CONTRAST [...] Sushila Quintero M.D. TW T: Report ID: [id number] Reading Location: [id number] Procedure Note Sushila Quintero MD - 02/28/2025 [...] Sushila Quintero M.D. TW T: Report ID: [id number] Reading Location: [place] [address] Amina Mccray NP IMG [address] PROCEDURES Final [...] compared to prior imaging studies performed at [facility] on 01/03/2021, 01/09/2022 and 06/19/2022. [...] compared to prior imaging studies performed at [facility] on 01/03/2021, 01/09/2022 and 06/19/2022. [...] Current interpretive data was last reviewed 2021. [facility], [address] [place] [address], [place]., [address] Blood 07/07/2023 8:36 AM CDT 07/07/2023 9:00 AM CDT Robb Lr MD LAB BLOOD ORDERABLES Final R esult Performing Organization Address [facility] de Phone Number MICHELA [address] [place] [address] * (ABNORMAL) Hemoglobin A1c (06/11/2023 9:28 AM CDT) Hgb A1C 6.3(H) 4.0 - 5.6 % Estimated Average Glucose 134 mg/dL MIC[facility]LA Comment: The ADA recommends reporting an estimated Average Glucose (eAG) with all Hemoglobin A1c results using the equation derived from a study of 507 normal and diabetic adults. Minority populations were underrepresented and children were not included. (Diabetes Care 31:8605-1231, 2008). The eAG is not equivalent to a fasting glucose. Blood 06/11/2023 9:28 AM CDT 06/11/2023 9:40 AM CDT Kamar Gandara DO LAB BLOOD ORDERABLES Final Res ult Performing Organization Address [facility] Co de Phone Number IS[address] [place] [address] * Dexa Axial Skeleton Bone Density 1 or 2 Site (09/23/2022 10:06 AM CDT) Anatomical Region Laterality Modality Body N/A Mammography 09/23/2022 3:51 PM CDT Narrative 09/23/2022 3:52 PM CDT EXAM DESCRIPTION: DEXA AXIAL SKELETON BONE DENSITY 1 OR MORE SITES REASON FOR STUDY: 67 y/o year old F with given history of: Postmenopausal status. Patient takes vitamin-D and calcium. History of hysterectomy. Vendor Relationship Manager/Model: [employer] A (S/N [id number]) CLINICAL INFORMATION: Current height: 62 inches Maximum [...] Sushila Quintero M.D. TW: TW Report ID: [id number] Reading Location: [place] [address] Procedure Note Sushila Quintero MD - 09/23/2022 EXAM DESCRIPTION: DEXA AXIAL SKELETON BONE DENSITY 1 OR MORE SITES REASON FOR STUDY: 67 y/o year old F with given history of:Postmenopausal status. Patient takes vitamin-D and calcium. History of hysterectomy. Vendor Relationship Manager/Model: [employer] A (S/N [id number]) CLINICAL INFORMATION: Current height: 62 inches Maximum [...] Sushila Quintero M.D. TW: TANYA Report ID: [id number] Reading Location: [id number] us Amina Mccray NP IMG DXA PROCEDURES Final Result * Serum Hepatitis C ab (06/18/2012 10:52 AM CDT) HCV ab Negative NEG HISTORICAL RESULTS Serum 06/18/2012 10:5 2 AM CDT Narrative HISTORICAL RESULTS - 06/19/2012 4:50 AM CDT LAB Frequency Standing Order? No Expiration Date: Interpretive Data If confirmation is required, call Laboratory Customer Service to request sample to be sent to [facility] for Hepatitis C Virus (HCV) RNA Detection and Quantitation by Real-Time [employer] Supervisor-PCR (RT-PCR). Current interpretive data was last revised on 2011 us Rommel Vaughan DO LAB BLOOD ORDERABLES Final Resul t HISTORICAL RESULTS from Last 3 Months or Most Recently Relevant to Health Maintenance Insurance [facility] MEDICARE ADVANTAGE [facility] MEDICARE ADVANTAGE Advance Directives For more information, please contact: [phone] * Full Code (Latest Code Status on File) Date Activated Date Inactivated Comments 07/01/2023 3:35 PM 07/03/2023 6:36 PM Care Teams Speech Scientist Relationship Specialty Start Date End Date Amina Mccray NP [address] [place] [address] PCP - General Nurse Practitioner 05/06/24 Dahlia Mendez PA [address] [place] [address] Orthopedic Surgery 07/01/23
--- OUTSIDE RECORDS SUMMARY | 2024-07-15 15:41 | XMS_ITS ---
Author Name Amina Mccray Address [address] [facility] [address] [place] [address] [facility], Address [address] [facility] [address] [place] [address] Care Team Providers Care Inside Sales Account Executive Name Role Phone Amina Mccray Primary Care [...] NITROGEN (BUN) 15.0 mg/dLCREATININE 1.070 mg/dLeGFR NON-AFR. DUTCH 54.0 mL/min/1.73m eGFR 63BUN/CREATININE RATIO 14.0 (calc)SODIUM [...] heart rate (average) 146Longest ventricular tachycardia episode [id number] ventricular tachycardia episode - duration 5.5Longest ventricular tachycardia episode - number of beats 15Longest ventricular tachycardia episode - heart rate minimum 124Longest ventricular tachycardia episode - heart rate maximum 188Longest ventricular tachycardia episode - heart rate (average) 170Ventricular tachycardia with fastest heart rate [id number] tachycardia with fastest heart rate - duration [...] rate (average) 117.0 {beats}/minLongest supraventricular tachycardia episode [id number] supraventricular tachycardia episode - duration 8.10 secsLongest supraventricular tachycardia episode - number of beats 14Longest supraventricular tachycardia episode - heart rate minimum 86.0 {beats}/minLongest supraventricular tachycardia episode - heart rate maximum 132.0 {beats}/minLongest supraventricular tachycardia episode - heart rate (average) 107.0 {beats}/minSupraventricular tachycardia with fastest heart rate [id number] tachycardia with fastest heart rate - duration 3.8Supraventricular tachycardia with fastest heart rate - number of beats 8Supraventricular tachycardia with fastest heart rate - heart rate minimum 120.0 {beats}/minSupraventricular tachycardia with fastest heart rate - heart rate maximum 133.0 {beats}/minSupraventricular tachycardia with fastest heart rate - heart rate (average) 126.0 {beats}/minLongest bigeminy [id number] bigeminy - duration 3.90 sIsolated SVE frequency RareIsolated SVE count 788Isolated VE Frequency RareIsolated VE Counts 479VE Couplets Frequency RareVE Couplets Counts 6VE Triplets Frequency RareVE Triplets Counts 9Enrollment Period Start [id number] Period End [id number] 04/14/2024 12:00 AM Lower Extremity Exam : [...] HPI: Pt repor ts Lumpectomy of L [id number] request records and f/u History of breast [...] X-ray exams for head and knee at [facility]Arranged transportation for pt to reach facility.-Will [...] 50 mg tablet- Pt [facility] with ortho [facility], Next appt 03/21/22 - Will request [...] Policy Number Policy Group Number Start Date [facility] ([facility]) - [id number] Saturday, 2022 Medicaid - [place] Medicaid - [facility] [id number] N/A [facility] ([facility]) - [id number] [id number] [id number] February Medicare - [place] Medicare Part B - [facility] [id number] N/A [facility]) - [id number] zzzAARPAdvtgHMOINNEStLCenterpoint Medical CenterBANDAR [id number] [id number] Wednesday, 2021 [facility] ([facility]) - [id number] St. [facility] CenterBANDAR [id number] [phone] [id number] Friday History of Encounters Visit Date Visit Type Provider 06/08/2024 In Office Visit Amina Mccray ABLE BODIED SEAMAN 04/26/2024 In Office Visit Visits [facility] Ot her 04/14/2024 In Office Visit Amina Mccray ABLE BODIED SEAMAN 2024 In Office Visit Visits C[facility] Ot her 01/14/2024 In Office Visit Amina Mccray ABLE BODIED SEAMAN 05/08/2022 In Office Visit Amina Mccray ABLE BODIED SEAMAN 03/11/2022 In Office Visit Amina Mccray ABLE BODIED SEAMAN 02/18/2022 In Office Visit Amina Mccray ABLE BODIED SEAMAN 02/06/2022 In Office Visit Amina Mccray ABLE BODIED SEAMAN 12/27/2021 In Office Visit Amarilis tang NP 11/21/2021 In Office Visit Amina Mccray NP 08/22/2021 In Office Visit Alesia wise MD 07/25/2021 In Office Visit Alesia wise MD
--- OUTSIDE RECORDS SUMMARY | 2024-07-15 15:41 | XMS_ITS | CONTINUITY OF CARE DOCUMENT ---
Author Name brit perea Address Unknown Organization [facility] Address [address] [facility] [address] [place] [address] Phone [phone] Care Team Providers Care Art Sales Consultant Name Role Phone Gustavo WANG, May Unavailable [...] In-person encounter Office Visit May Chen MD [place] [facility] ESTELA--on cpapFamily hx of heart diseaseShortness of breath VITAL SIGNS Date Observation Value Provider Body Mass Index (Ratio) 36.21 kg/m2 Elmo Chen MD blood pressure, cuff size regular Kusum Paul blood pressure, diastolic 79 mm[Hg] Kusum Paul blood pressure, systolic 117 mm[Hg] [facility] respiratory rate E&M 16 /min [facility] Rai [facility] pulse rate 84 /min [facility] oxygen saturation, oximetry 96 % [facility] weight E&M 198 [lb_av] [facility] height E&M 62 [in_i] [facility] ALLERGIES No Known Drug Allergies [...] Payer name Policy type / Coverage type [employer] red democrat ID [facility] COMPLETE CARE [id number] (PPO C-SNP) Commercial insurance company [id number] [facility] Medicaid 3 [id number] TREATMENT PLAN Date Name Performer Telehealth Adan [...] Mg Tablet (Amlodipine) Orders: C omplete Echo ([id number]) [facility]iology [facility]: H er updated medication list for this problem includes: Losartan 100 Mg Tablet (Losartan) Amlodipine 10 Mg Tablet (Amlodipine) Orders: C omplete Echo ([id number]) Adan Lam Date Name Complete Echo Complete Echo
--- OUTSIDE RECORDS SUMMARY | 2024-07-15 15:41 | XMS_ITS | Clinical Summary ---
Author Organization [facility] Address [address] [place] [address] Care Team Providers Care Board Of Directors Name Role Phone Bao Lyons DO Primary [...] Relevant to Health Maintenance Insurance Care Teams Board Of Directors Relationship Specialty Start Date End Date Bao Lyons DO [address] [facility] [address] [place] [address] PCP - General Internal Medicine 09/21/18
--- OUTSIDE RECORDS SUMMARY | 2024-07-15 15:41 | XMS_ITS | Clinical Summary ---
Author Organization [facility] Address [address] [place] [address] Care Team Providers Care Loft Worker Apprentice Name Role Phone Unavailable Primary Care Provider [...]
[2024-07-15 17:22] LABS: Glucose Point of Care 141 mg/dl (65-105)
[2024-07-15 21:13] LABS: Glucose Point of Care 124 mg/dl (65-105)
[2024-07-15] MEDS: ATORVASTATIN 20 MG TABLET PO (21:14)
[2024-07-16] VITALS (10 sets, daily range): BP systolic 134–152; BP diastolic 72–97; PULSE 77–98; RESP 16–24; TEMP 36.2–36.7; O2SAT 94–100
[2024-07-16 05:41] LABS: Hemoglobin 11.4 g/dL (12.0-15.0); Mean Corpuscular HGB Conc 30.8 g/dl (32-36); Mean Corpuscular Volume 87.7 fl (80-100); Mean Platelet Volume 10.5 fl (7.4-10.4); Platelet Count Result 349 k/mm3 (150-375); Red Blood Count 4.22 M/mm3 (4.2-5.4); Red Cell Distribution Width 15.4 % (11.5-14.5); White Blood Count 10.4 K/mm3 (4.5-10.0)
[2024-07-16 05:49] LABS: Anion Gap 7 mmol/L (4-12); Blood Urea Nitrogen 16 mg/dL (7-17); Calcium 8.6 mg/dL (8.4-10.2); Carbon Dioxide 29 mmol/L (22-30); Chloride 102 mmol/L (98-107); Cholesterol 190 mg/dL (0-200); Estimated CRCL calculation 51 ml/min; Estimated Glomerular Filt Rate 55; Glucose 111 mg/dL (65-110); HDL Direct 29 mg/dL; Potassium 3.5 mmol/L (3.4-5.0); Sodium 138 mmol/L (137-145); Triglycerides 110 mg/dL (<150)
[2024-07-16 06:00] LABS: LDL Cholesterol Direct 106 mg/dL
--- NOTE | 2024-07-16 07:15 | PM.IMPN ---
Progress Note: A&P Assessment and Plan (1) CHF (congestive heart failure): Qualifiers: Heart failure chronicity: acute Heart failure type: systolic Qualified Code(s): I50.21 - Acute systolic (congestive) heart failure Code(s): I50.9 - Heart failure, unspecified Status: Acute Assessment and Plan: - Symptoms: Dyspnea, lower extremity edema - New diagnosis - BNP: 4930 - EKG: Sinus tachy, incomplete LBBB - Chest XR: Cardiomegaly with cardiac decompensation and pulmonary edema.Right basilar atelectasis versus pneumonia with possible effusion. - Echo: Normal LV chamber dimension, EF 40-45%, mild increased LV wall thickness, grade 1 diastolic dysfunction, moderate MVR, mild TVR - Monitor vital signs, I&Os, BUN/creatinine, daily weights, neuro status and patient is a fall risk - Monitor serum electrolytes, Keep serum Potassium>4 and serum Magnesium>2 and CBC - Cardio consulted, appreciate recommendations - Initiated Lasix 40mg IV q12hr - Will need close follow-up with her cyber incident handler Dr. Chen in the outpt setting upon discharge (2) Essential hypertension: Code(s): I10 - Essential (primary) hypertension Status: Acute Assessment and Plan: Chronic, In ED 152/97 Continue Amlodipine, losartan (3) Type 2 diabetes mellitus: Code(s): E11.9 - Type 2 diabetes mellitus without complications Status: Acute Assessment and Plan: - hypoglycemia protocol - POC blood glucose ACHS - SSI - correct regimen ordered - low dose TIDWM and HS - A1C 6.0 % (4) Anemia: Qualifiers: Anemia type: unspecified type Qualified Code(s): D64.9 - Anemia, unspecified Code(s): D64.9 - Anemia, unspecified Status: Acute Assessment and Plan: - Chronic, stable - Cardiology adding b-juana and Entresto, discontinuing Losartan (5) Obstructive sleep apnea: Code(s): G47.33 - Obstructive sleep apnea (adult) (pediatric) Status: Acute Assessment and Plan: - CPAP (6) Nonsustained ventricular tachycardia: Code(s): I47.29 - Other ventricular tachycardia Status: Acute Assessment and Plan: - Adding b-juana Time Spent With Patient Time: - Subjective Date/time seen: 07/16/24 07:15 Interval history: 69-year-old female with hypertension, hyperlipidemia, mitral valve prolapse, type 2 diabetes mellitus, obstructive sleep apnea, anemia, and gastroesophageal reflux disease who presented to the emergency department via private vehicle with complaints of shortness of breath 07/16/2024 Patient sitting comfortably in bed at time of exam. Denies any chest pain, shortness of breath while sitting, n/v, or abdominal pain at this time. Cardiology following. Echo results show HFmrEF, EF 40-45%. This is new diagnosis and has been being treated with Lasix IV b.i.d. with marked improvement in symptoms. Lower extremities do not appear to be swollen/edematous. Will continue to monitor symptoms, daily weights and counseling director on new CHF diagnosis. Review of Systems Review of Systems: 12 systems were reviewed and are negative except for as per HPI. Exam Narrative: General: Well-developed, nontoxic-appearing female in the semi-Caldera position in no acute distress. Weight: 93.7 kg BMI: 37.8. HEENT: PERRL, EOMI. Sclera anicteric. Oral mucosa moist. Neck: Supple. No JVD. Respiratory: Respirations are nonlabored and she is speaking in full sentences. Fine crackles heard at the bases. Cardiovascular: Regular rate and rhythm with gallop. Gastrointestinal: Abdomen is soft, nontender, and nondistended with positive bowel sounds. Skin: Warm and dry. No rash or lesions on limited exam. Extremities: No cyanosis or clubbing. No lower extremity edema. No palpable knots or cords. Negative Vasquez sign bilaterally. Radial and pedal pulses intact. Neurological: Alert. Cranial nerves 2-12 are grossly intact. No gross focal deficits to casual conversation. Psychiatric: Pleasant and cooperative with normal mood and affect. Judgment and insight intact. Objective Data Vital Signs Vital Signs: Vital Signs - 24 hr 07/15/24 09:42 07/15/24 09:42 07/15/24 10:29 Temperature 98.1 F Pulse Rate 109 H Respiratory Rate 14 Blood Pressure 166/105 H Pulse Oximetry 95 95 94 Oxygen Delivery Room Air Room Air Room Air Fraction of Inspired Oxygen 07/15/24 10:39 07/15/24 10:46 07/15/24 11:01 Temperature Pulse Rate 83 97 Respiratory Rate 27 H 22 H 28 H Blood Pressure 156/89 H 157/96 H 157/94 H Pulse Oximetry 94 94 93 Oxygen Delivery Fraction of Inspired Oxygen 07/15/24 12:05 07/15/24 12:39 07/15/24 12:44 Temperature Pulse Rate 110 H 97 99 Respiratory Rate 26 H 24 H Blood Pressure 157/94 H Pulse Oximetry 95 100 Oxygen Delivery Fraction of Inspired Oxygen 07/15/24 13:47 07/15/24 14:35 07/15/24 15:45 Temperature 96.9 F L Pulse Rate 105 H 93 Respiratory Rate 22 H 16 Blood Pressure 150/87 H Pulse Oximetry 95 97 96 Oxygen Delivery Room Air Fraction of Inspired Oxygen 07/15/24 15:45 07/15/24 16:00 07/15/24 20:00 Temperature Pulse Rate 97 104 H Respiratory Rate Blood Pressure Pulse Oximetry Oxygen Delivery Autopap Fraction of Inspired Oxygen 07/15/24 21:31 07/15/24 22:19 07/16/24 00:00 Temperature 98.0 F Pulse Rate 102 H 84 87 Respiratory Rate 14 20 Blood Pressure 155/87 H Pulse Oximetry 93 94 Oxygen Delivery Room Air Fraction of Inspired Oxygen 07/16/24 04:00 07/16/24 06:00 Temperature 97.9 F Pulse Rate 86 89 Respiratory Rate 16 Blood Pressure 152/97 H Pulse Oximetry 96 Oxygen Delivery Fraction of Inspired Oxygen Intake/Output Intake/Output: Intake & Output 07/13/24 07/14/24 07/15/24 07/16/24 23:59 23:59 23:59 23:59 Intake Total 300 300 Output Total 600 175 Balance -300 125 Meds/Results Medications: Active Medications Generic Name Dose Route Start Last Admin Trade Name Roberthq PRN Reason Stop Dose Admin Acetaminophen 650 mg 07/15/24 11:43 Acetaminophen 325 Mg Tablet PO Q4H PRN Mild Pain (1-3) or Fever Amlodipine Besylate 10 mg 07/15/24 15:35 07/15/24 15:57 Amlodipine Besylate 10 Mg Tablet PO Not Given DAILY POLLY Atorvastatin Calcium 20 mg 07/15/24 21:00 07/15/24 21:14 Atorvastatin 20 Mg Tablet PO 20 mg QHS POLLY Administration Calcitriol 0.25 mcg 07/15/24 15:35 07/15/24 15:58 Calcitriol 0.25 Mcg Capsule PO Not Given DAILY POLLY Dextrose 12.5 gm 07/15/24 15:17 Dextrose 50% 25 Gm/50 Ml Syringe IV PUSH PRN PRN Hypoglycemia Protocol Empagliflozin 25 mg 07/16/24 09:00 Empagliflozin 25 Mg Tablet PO DAILY [facility] Enoxaparin Sodium 40 mg 07/16/24 09:00 Enoxaparin 40 Mg/0.4 Ml Syringe SUB-Q DAILY POLLY Furosemide 40 mg 07/15/24 21:00 07/15/24 21:15 Furosemide Inj 40 Mg/4 Ml Vial IV PUSH 40 mg Q12HR POLLY Administration Glucagon 1 mg 07/15/24 15:17 Glucagon For Inj 1 Mg Vial IM PRN PRN Hypoglycemia Protocol Glucose 15 gm 07/15/24 15:17 Glucose Oral Gel 15 Gm Of Glucse In 37.5 Gm Tube PO PRN PRN Hypoglycemia Protocol Dextrose 1,000 mls @ 100 mls/hr 07/15/24 15:17 Dextrose 5% 1,000 Ml IVPB PRN PRN Hypoglycemia Protocol Insulin Aspart 1 - 3 units 07/15/24 21:00 07/15/24 21:40 Insulin Aspart (*Bkc) 100 Units/Ml SUB-Q Not Given HS [facility] Protocol Insulin Aspart 3 - 6 units 07/15/24 17:00 07/15/24 17:23 Insulin Aspart (*Bkc) 100 Units/Ml SUB-Q Not Given TIDWM [facility] Protocol Linaclotide 145 mcg 07/15/24 15:18 Linaclotide 145 Mcg Capsule PO DAILY PRN constipation Losartan Potassium 100 mg 07/15/24 15:35 07/15/24 15:58 Losartan Potassium 100 Mg Tablet PO Not Given DAILY POLLY Perflutren Lipid Microsphere 0 ml 07/15/24 13:56 Perflutren Lipid Microspheres 1.5 Ml Vial Diluted To 10 Ml Total Volume IV PUSH 07/18/24 13:56 ONCE PRN adequate visualization Protocol Radiology Results: ITS Impressions Chest X-Ray 07/15/24 10:48 IMPRESSION: Cardiomegaly with cardiac decompensation and pulmonary edema. Right basilar atelectasis versus pneumonia with possible effusion. Labs Labs: Laboratory Results - last 24 hr 07/15/24 07/15/24 07/15/24 09:56 09:56 10:29 WBC 10.9 H RBC 4.32 Hgb 11.7 L Hct 37.7 MCV 87.3 MCH 27.1 MCHC 31.0 L RDW 15.1 H Plt Count 386 H MPV 10.1 Immature Gran % (Auto) 0.2 Neut % (Auto) 64.9 Lymph % (Auto) 29.3 Mcdonald % (Auto) 4.4 Eos % (Auto) 0.8 Baso % (Auto) 0.4 Lymph # (Auto) 3.19 Mcdonald # (Auto) 0.5 Eos # (Auto) 0.1 Baso # (Auto) 0.0 Abs Immat Gran (auto) 0.02 Absolute Neuts (auto) 7.1 H Absolute Nucleated RBC 0.000 Nucleated RBC % 0.0 PT 15.1 H INR 1.1 APTT 35.1 Sodium 140 Potassium 3.8 Chloride 102 Carbon Dioxide 26 Anion Gap 12 BUN 13 Creatinine 0.92 Estim Creat Clear Calc 55 Estimated GFR > 60 Glucose 117 H POC Capillary Glucose Hemoglobin A1c 6.0 H Lactic Acid 1.3 Calcium 9.1 Magnesium Total Bilirubin 0.5 AST 26 ALT 30 Alkaline Phosphatase 90 Troponin I 0.014 C-Reactive Protein 2.2 H NT-Pro-B Natriuret Pep 4930 H Cancelled Total Protein 8.0 Albumin 4.1 Triglycerides Cholesterol LDL Cholesterol Direct HDL Direct Influenza A (RT-PCR) Negative Influenza B (RT-PCR) Negative RSV (RT-PCR) Negative SARS-CoV-2 RNA (RT-PCR) Negative 07/15/24 07/15/24 07/16/24 17:18 20:26 05:20 WBC 10.4 H RBC 4.22 Hgb 11.4 L Hct 37.0 MCV 87.7 MCH 27.0 MCHC 30.8 L RDW 15.4 H Plt Count 349 MPV 10.5 H Immature Gran % (Auto) Neut % (Auto) Lymph % (Auto) Mcdonald % (Auto) Eos % (Auto) Baso % (Auto) Lymph # (Auto) Mcdonald # (Auto) Eos # (Auto) Baso # (Auto) Abs Immat Gran (auto) Absolute Neuts (auto) Absolute Nucleated RBC Nucleated RBC % PT INR APTT Sodium 138 Potassium 3.5 Chloride 102 Carbon Dioxide 29 Anion Gap 7 BUN 16 Creatinine 1.00 Estim Creat Clear Calc 51 Estimated GFR 55 L Glucose 111 H POC Capillary Glucose 141 H 124 H Hemoglobin A1c Lactic Acid Calcium 8.6 Magnesium 2.0 Total Bilirubin AST ALT Alkaline Phosphatase Troponin I C-Reactive Protein NT-Pro-B Natriuret Pep Total Protein Albumin Triglycerides 110 Cholesterol 190 LDL Cholesterol Direct 106 HDL Direct 29 Influenza A (RT-PCR) Influenza B (RT-PCR) RSV (RT-PCR) SARS-CoV-2 RNA (RT-PCR) Quality VTE Prophylaxis VTE prophylaxis: pharmacologic ordered
[2024-07-16 07:53] LABS: Glucose Point of Care 103 mg/dl (65-105)
[2024-07-16] MEDS: FUROSEMIDE INJ 40 MG/4 ML VIAL IV PUSH ×2 (08:36→20:28)
[2024-07-16] MEDS: ENOXAPARIN 40 MG/0.4 ML SYRINGE SUB-Q (08:36)
--- NOTE | 2024-07-16 10:58 | P.CONCA_ITS ---
Assessment and Plan Assessment and plan (1) CHF (congestive heart failure): Code(s): I50.9 - Heart failure, unspecified Status: Acute Assessment and Plan: HFmrEF, EF 40-45%. This is a new diagnosis. Improving with IV diuresis * Continue furosemide 40 mg IV b.i.d. * Strict intake and output * Daily weights * CHF counseling * Anticipate discharge within the next 24-48 hours * She follows with Dr. Chen because of her mitral valve prolapse. Recommend close outpatient follow-up with her after discharge. (2) Hyperlipidemia: Qualifiers: Hyperlipidemia type: mixed hyperlipidemia Qualified Code(s): E78.2 - Mixed hyperlipidemia Code(s): E78.5 - Hyperlipidemia, unspecified Status: Acute Assessment and Plan: Continue statin (3) Nonsustained ventricular tachycardia: Code(s): I47.29 - Other ventricular tachycardia Status: Acute Assessment and Plan: Will add beta-juana for nonsustained V-tach and her systolic dysfunction. (4) Essential (primary) hypertension: Code(s): I10 - Essential (primary) hypertension Status: Acute Assessment and Plan: Above goal. As above, adding beta-juana. Will also add Entresto and discontinue losartan. History of Present Illness History of Present Illness Consult date/time: 07/16/24 10:58 Reason For Visit: CHF/Pneumonia Narrative: Lindsay Pedersen is a 61-year-old female with mitral valve prolapse, hypertension, and hyperlipidemia. This is a patient who presents to the hospital with a chief complaint of shortness of breath. Cardiology is consulted for CHF. Patient reports progressive shortness of breath, bilateral lower extremity swelling, orthopnea, conversational dyspnea over the past few weeks. She also had a cough and went to urgent care where she was diagnosed with pneumonia but states that she did not improve and in fact worsened with antibiotic treatment. She has been placed on IV diuretics and is already feeling better today. However, she is still unable to lay flat and has some mild lower extremity edema. She does not have chest pain, palpitations. No active complaints at the time of my evaluation. Review of Systems 2 Review of Systems: All systems reviewed & are unremarkable except as noted in HPI and below PMFSH Past Medical History Medical History Essential hypertension Osteoarthritis Obstructive sleep apnea Type 2 diabetes mellitus Hyperlipidemia Mitral valve prolapse Iron deficiency anemia Vitamin D deficiency Surgical History Surgical History History of hysterectomy for benign disease History of right knee joint replacement History of colonoscopy with polypectomy History of bilateral breast biopsy benign pathology Family History Family History Mother Cerebrovascular accident Father Pneumonia Sibling Acute myocardial infarction Social History Social History Social History: Surrogate medical decision maker: Maria Elena Harrell, daughter. Code status: Full code. Smoking status: Former smoker Smoking end date: 03/24/79 Alcohol intake: never Substance use: never Substance use type: does not use Do You Feel Safe in your Home?: Yes Lack of Transportation: No Lack of Food: Never True Current Housing: I Have Housing Concerned About Future Housing: No Difficulty Paying Gas/Electric Bills: No Difficulty Paying for Meds: No Currently Unemployed: No Education: High School Diploma/GED Difficulty w/ Childcare or Family Care: No Living arrangements: alone Spiritual care concerns: No Meds Home Medications and Allergies Home Medications ?Medication ?Instructions ?Recorded ?Confirmed ?Type amlodipine 10 mg tablet 10 mg PO DAILY #90 tabs 08/11/20 07/15/24 Rx atorvastatin 20 mg tablet 20 mg PO QHS #90 tabs 04/17/21 07/15/24 Rx lancets (Accu-Chek Softclix #100 ea 06/14/21 07/15/24 Rx Lancets) blood-glucose meter (Accu-Chek #1 ea 06/15/21 07/15/24 Rx Guide Glucose Meter) losartan 100 mg tablet 100 mg PO DAILY #90 tabs 08/09/21 07/15/24 Rx blood sugar diagnostic (Accu-Chek #100 ea 11/11/22 07/15/24 Rx Guide test strips) calcitriol 0.25 mcg capsule 0.25 mcg PO DAILY 03/04/24 07/15/24 History dapagliflozin propanediol 10 mg 10 mg PO DAILY 03/04/24 07/15/24 History tablet (Farxiga) dulaglutide 1.5 mg/0.5 mL 1.5 mg subcut WEEKLY 03/04/24 07/15/24 [facility] ergocalciferol (vitamin D2) 1,250 50,000 unit PO WEEKLY 03/04/24 07/15/24 History mcg (50,000 unit) capsule linaclotide 72 mcg capsule 145 mcg PO DAILY PRN constipation 03/04/24 07/15/24 History (Linzess) Allergies Allergy/AdvReac Type Severity Reaction Status Date / Time shellfish derived Allergy Itching Verified 07/15/24 09:55 adhesive tape AdvReac Itching Verified 07/15/24 09:55 Vital Signs Vital Signs - 24 hr 07/15/24 11:01 07/15/24 12:05 07/15/24 12:39 Temperature Pulse Rate 97 110 H 97 Respiratory Rate 28 H 26 H Blood Pressure 157/94 H 157/94 H Pulse Oximetry 93 95 Oxygen Delivery Fraction of Inspired Oxygen 07/15/24 12:44 07/15/24 13:47 07/15/24 14:35 Temperature 36.1 C L Pulse Rate 99 105 H 93 Respiratory Rate 24 H 22 H 16 Blood Pressure 150/87 H Pulse Oximetry 100 95 97 Oxygen Delivery Fraction of Inspired Oxygen 07/15/24 15:45 07/15/24 15:45 07/15/24 16:00 Temperature Pulse Rate 97 Respiratory Rate Blood Pressure Pulse Oximetry 96 Oxygen Delivery Room Air Autopap Fraction of Inspired Oxygen 07/15/24 20:00 07/15/24 21:31 07/15/24 22:19 Temperature 36.7 C Pulse Rate 104 H 102 H 84 Respiratory Rate 14 20 Blood Pressure 155/87 H Pulse Oximetry 93 94 Oxygen Delivery Room Air Fraction of Inspired Oxygen 07/16/24 00:00 07/16/24 04:00 07/16/24 06:00 Temperature 36.6 C Pulse Rate 87 86 89 Respiratory Rate 16 Blood Pressure 152/97 H Pulse Oximetry 96 Oxygen Delivery Fraction of Inspired Oxygen Exam 2 Const: General: comfortable, no acute distress, alert and awake O rientation/consciousness: patient oriented x3 HENMT: Head: normal to inspection Eyes: General: appearance normal, both eyes and all related structures P upils: Equal, round and reactive pupils present Neck: Neck: normal visual inspection, supple and no JVD Carotids: normal carotid upstroke Resp: Effort & Inspection: normal respiratory effort Auscultation: rales Cardio: Rate: regular rate Rhythm: regular rhythm Heart sounds: S1 normal heart sound present, S2 normal heart sound present and Murmur heart sound present GI: Auscultation: normal bowel sounds Skin: General skin exam: normal color Neuro: General: patient oriented x3 Cranial nerves: Yes Equal, round and reactive pupils present Extrem: Other: mild pretibial edema Psych: Appearance: grossly normal Mental Status: mental status grossly normal Results Labs and Meds 07/16/24 05:20 07/16/24 05:20 Lab results: Coagulation 07/15/24 Range/Units 09:56 PT 15.1 H (11.1-14.7) Seconds APTT 35.1 (22.3-36.8) Seconds Lipids 07/16/24 Range/Units 05:20 Triglycerides 110 (<150) mg/dL Cholesterol 190 (0-200) mg/dL CBC 07/16/24 Range/Units 05:20 WBC 10.4 H (4.5-10.0) K/mm3 RBC 4.22 (4.2-5.4) M/mm3 Hgb 11.4 L (12.0-15.0) g/dL Hct 37.0 (37.0-47.0) % Plt Count 349 (150-375) k/mm3 Comprehensive Metabolic Panel 07/16/24 Range/Units 05:20 Sodium 138 (137-145) mmol/L Potassium 3.5 (3.4-5.0) mmol/L Chloride 102 (98-107) mmol/L Carbon Dioxide 29 (22-30) mmol/L BUN 16 (7-17) mg/dL Creatinine 1.00 (0.7-1.0) mg/dL Glucose 111 H (65-110) mg/dL Calcium 8.6 (8.4-10.2) mg/dL Intake and Output 07/15/24 07/16/24 07/16/24 23:59 07:59 15:59 Intake Total 300 Output Total 600 175 Balance -600 125 Intake: Oral 300 Output: Catheter Urine 600 175 External/Condom 600 175 Other: # Unmeasured Voids 3
[2024-07-16 11:41] LABS: Glucose Point of Care 142 mg/dl (65-105)
[2024-07-16] MEDS: LOSARTAN POTASSIUM 100 MG TABLET PO (11:52)
[2024-07-16] MEDS: amLODIPine BESYLATE 10 MG TABLET PO (11:52)
[2024-07-16] MEDS: calcitrioL 0.25 MCG CAPSULE PO (11:52)
--- NOTE | 2024-07-16 13:56 | ECHO_ITS ---
Patient Info Name: Lindsay Pedersen Age: 69 years : 1955 Gender: Female Ht: 62 in Wt: 204 lbs BSA: 2.06 m2 HR: 86 bpm BP: 155 / 87 mmHg Heart Rhythm: Tachycardia Technical Quality: Fair Exam Date: 07/16/2024 9:09 AM Exam Location: Echo Lab Patient Status: Outpatient Admit Date: 07/15/2024 Staff Ordering Physician: Diamond Alex PA-C [employer] Supervisor: Cindi Garcia RDCS Attending Provider: Gil Reeder PA-C Referring Physician: Abi WALKER; Exam Type: CA echo doppler color flow Study Info Indications - Pulmonary edema Complete two-dimensional, color flow and Doppler transthoracic echocardiogram is performed. Summary 1. Left ventricular chamber dimension is normal. 2. Left ventricular systolic function is mildly reduced, estimated at 40-45%. 3. There is mildly increased left ventricular wall thickness. 4. The left ventricular diastolic function is grade I diastolic dysfunction. 5. Right ventricular systolic function is normal. 6. Left atrial chamber dimension is mildly enlarged. 7. There is moderate mitral valve regurgitation. The severity of the regurgitation may be underestimated due to eccentricity of the jet. 8. There is mild tricuspid valve regurgitation. 9. There is trivial anterior pericardial effusion. Left Ventricle Left ventricular chamber dimension is normal. Left ventricular systolic function is mildly reduced, estimated at 40-45%. There is mildly increased left ventricular wall thickness. Left ventricular septal wall motion is abnormal with septal motion related to bundle branch block. The left ventricular diastolic function is grade I diastolic dysfunction. Right Ventricle Right ventricular chamber dimension is normal. Right ventricular systolic function is normal. Left Atria Left atrial chamber dimension is mildly enlarged. Right Atria Right atrial chamber dimension is normal. Atrial Septum Intact interatrial septum visualized by color flow imaging. Aortic Valve The aortic valve is trileaflet. There is no aortic valve stenosis. There is no aortic valve regurgitation. Pulmonic Valve The pulmonic valve is not well visualized. There is trace pulmonic regurgitation. Mitral Valve The mitral valve has thickened leaflets. There is moderate mitral valve regurgitation. The severity of the regurgitation may be underestimated due to eccentricity of the jet. Tricuspid Valve There is mild tricuspid valve regurgitation. Pericardium/Pleural There is trivial anterior pericardial effusion. Inferior Vena Cava Normal inferior vena cava with <50% collapse upon inspiration consistent with elevated right atrial pressure, 8 mmHg. Aorta The aortic root size at the sinus of Valsalva is normal. Left Ventricular Outflow Tract Name Value Normal LVOT 2D LVOT Diameter 2.0 cm LVOT Doppler LVOT Peak Gradient 5 mmHg LVOT Mean Gradient 2 mmHg LVOT VTI 17 cm LVOT VTI/AV VTI Ratio 0.7 LVOT Stroke Volume 51 ml LVOT CO 5.2 l/min LVOT CI 2.5 l/min/m2 Pulmonic Valve Name Value Normal RVOT Doppler RVOT Peak Gradient 0 mmHg PV Doppler PV Peak Gradient 4 mmHg PV Regurgitation Doppler ME Peak End Diastolic Velocity 162 cm/s Mitral Valve Name Value Normal MV Doppler MV Decel [place] 1,094 cm/s2 MV PHT 24 ms MV Area (PHT) 9.0 cm2 4.0-5.0 MV Diastolic Function MV E Peak Velocity 92 cm/s MV A Peak Velocity 150 cm/s MV E/A 0.6 MV Decel Time 84 ms MV Annular TDI MV E/e' (Septal) 40.7 <=8.0 MV E/e' (Lateral) 20.2 <=8.0 MV E/e' (Average) 30.4 Tricuspid Valve Name Value Normal TV Regurgitation Doppler TR Peak Velocity 332 cm/s TR Peak Gradient 43 mmHg Estimated PAP/RSVP RA Pressure 8 mmHg <=5 PA Systolic Pressure 52 mmHg <36 RV Systolic Pressure 52 mmHg <36 Aortic Valve Name Value Normal AV Doppler AV Peak Velocity 145 cm/s AV Peak Gradient 8 mmHg AV Mean Gradient 4 mmHg AV VTI 22 cm AV Area (Cont Eq VTI) 2.3 cm2 >=3.0 AV Area (Cont Eq Joshua) 2.3 cm2 AV Regurgitation 2D LVOT Area 3.1 cm2 Ventricles Name Value Normal LV Dimensions 2D/MM IVS Diastolic Thickness (2D) 1.1 cm 0.6-1.0 LVID Diastole (2D) 4.6 cm 3.8-5.2 LVIW Diastolic Thickness (2D) 1.0 cm 0.6-0.9 LVID Systole (2D) 3.2 cm 2.2-3.5 LVOT Diameter 2.0 cm LV Mass (2D Cubed) 172.96 g 67.00-162.00 LV Mass Index (2D Cubed) 84 g/m2 43-95 Relative Wall Thickness (2D) 0.45 LV Fractional Shortening/Ejection Fraction 2D/MM LV Fractional Shortening (2D) 31 % 27-45 LV EF (2D Teichjacquiz) 59 % 54-74 LV Diastolic Volume (4C MOD) 139 ml LV EF (4C MOD) 44 % LV Diastolic Volume (2C MOD) 161 ml LV EF (2C MOD) 48 % LV Diastolic Volume (BP MOD) 149 ml 46-106 LV Diastolic Volume Index (BP MOD) 73 ml/m2 29-61 LV Systolic Volume (BP MOD) 80 ml 14-42 LV Systolic Volume Index (BP MOD) 39 ml/m2 8-24 LV EF (BP MOD) 46 % 54-74 LV Diastolic Length (4C) 8.1 cm LV Systolic Length (4C) 6.8 cm LV Stroke Volume (4C MOD) 61 ml Atria Name Value Normal LA Dimensions LA Volume (4C A-L) 68 ml LA Volume (BP A-L) 67 ml RA Dimensions RA Area (4C) 15.0 cm2 <=18.0 Report Signatures
[2024-07-16 16:51] LABS: Glucose Point of Care 100 mg/dl (65-105)
[2024-07-16] MEDS: SACUBITRIL/VALSARTAN 24-26 MG TABLET 1 TAB PO (20:28)
[2024-07-16] MEDS: ATORVASTATIN 20 MG TABLET PO (20:28)
[2024-07-16 20:34] LABS: Glucose Point of Care 157 mg/dl (65-105)
[2024-07-17] VITALS (11 sets, daily range): BP systolic 122–148; BP diastolic 76–88; PULSE 71–89; RESP 14–20; TEMP 36.3–36.7; O2SAT 94–99
--- NOTE | 2024-07-17 06:24 | P.PNCA_ITS ---
Progress Note: A&P Assessment and Plan (1) CHF (congestive heart failure): Qualifiers: Heart failure chronicity: acute Heart failure type: systolic Qualified Code(s): I50.21 - Acute systolic (congestive) heart failure Code(s): I50.9 - Heart failure, unspecified Status: Acute Assessment and Plan: HFmrEF, EF 40-45%. This is a new diagnosis. Continue IV diuretics today. Transition either to once daily tomorrow or oral tomorrow. I will Increase metoprolol succinate to 25 mg daily. * Continue furosemide 40 mg IV b.i.d. we will also replace her potassium today with 40 mEq potassium chloride p.o. times 1 * Strict intake and output * Daily weights * CHF counseling * Anticipate discharge within the next 24-48 hours * She follows with Dr. Chen because of her mitral valve prolapse. Recommend close outpatient follow-up with her after discharge. Outpatient ischemic evaluation recommend (2) Hyperlipidemia: Qualifiers: Hyperlipidemia type: mixed hyperlipidemia Qualified Code(s): E78.2 - Mixed hyperlipidemia Code(s): E78.5 - Hyperlipidemia, unspecified Status: Acute Assessment and Plan: Continue statin (3) Nonsustained ventricular tachycardia: Code(s): I47.29 - Other ventricular tachycardia Status: Acute Assessment and Plan: Will increase her metoprolol (4) Essential (primary) hypertension: Code(s): I10 - Essential (primary) hypertension Status: Acute Assessment and Plan: Above goal. As above, added beta-juana. Continue Entresto Subjective Date/time seen: 07/17/24 06:24 Interval history: 69-year-old female with hypertension, hyperlipidemia, mitral valve prolapse, type 2 diabetes mellitus, obstructive sleep apnea, anemia, and gastroesophageal reflux disease who presented to the emergency department via private vehicle with complaints of shortness of breath. Date of service 07/17/2024: She is feeling better. Breathing easier. No chest pain. Right leg edema is improving. Review of Systems Review of Systems: All systems reviewed & are unremarkable except as noted in HPI and below Constitutional: Constitutional: Denies body ache(s) Eyes: Eyes: Denies blurry vision ENT: Reports Normal hearing present Cardiovascular: Cardiovascular: Denies chest pain Respiratory: Respiratory: Denies hemoptysis Gastrointestinal: Gastrointestinal: Denies vomiting Genitourinary: Genitourinary: Denies hematuria Musculoskeletal: Musculoskeletal: Denies myalgias Integumentary/Breasts: Skin/Breast: Denies dry skin Neurologic: Denies Abnormal speech present Psychiatric: Psychiatric: Denies anxiety Endocrine: Endocrine: Denies change in body appearance Hematologic/Lymphatic: Hematologic/Lymphatic: Denies easy bleeding Allergic/Immunologic: Allergic/Immunologic: Denies GI upset with certain foods Exam Const: General: comfortable, no acute distress, alert and awake Orientation/consciousness: patient oriented x3 HENMT: Head: normal to inspection Eyes: General: appearance normal, both eyes and all related structures Pupils: Equal, round and reactive pupils present Neck: Neck: normal visual inspection, supple and no JVD Carotids: normal carotid upstroke Resp: Effort & Inspection: normal respiratory effort Auscultation: rales Cardio: Rate: regular rate Rhythm: regular rhythm Heart sounds: S1 normal heart sound present, S2 normal heart sound present and Murmur heart sound present GI: Auscultation: normal bowel sounds Skin: General skin exam: normal color Neuro: General: patient oriented x3 Speech: normal speech Sensory Exam: normal sensation Extrem: Other: mild pretibial edema Psych: Appearance: grossly normal Mental Status: mental status grossly normal Objective Data Vital Signs Vital Signs: Vital Signs - 24 hr 07/16/24 08:00 07/16/24 08:00 07/16/24 12:00 Temperature Pulse Rate 95 95 Respiratory Rate Blood Pressure Pulse Oximetry Oxygen Delivery Room Air 07/16/24 13:47 07/16/24 14:33 07/16/24 15:33 Temperature 36.2 C L Pulse Rate 97 Respiratory Rate 16 Blood Pressure 139/84 Pulse Oximetry 100 Oxygen Delivery Room Air Room Air 07/16/24 16:00 07/16/24 20:00 07/16/24 21:28 Temperature 36.7 C Pulse Rate 98 95 96 Respiratory Rate 18 Blood Pressure 134/72 Pulse Oximetry 96 Oxygen Delivery 07/16/24 23:12 07/17/24 00:00 07/17/24 03:36 Temperature Pulse Rate 77 81 71 Respiratory Rate 24 H 16 Blood Pressure Pulse Oximetry 94 95 Oxygen Delivery Autopap Autopap 07/17/24 04:00 07/17/24 06:00 Temperature 36.4 C L Pulse Rate 83 87 Respiratory Rate 14 Blood Pressure 148/88 H Pulse Oximetry 96 Oxygen Delivery Intake/Output Intake/Output: Intake & Output 07/14/24 07/15/24 07/16/24 07/17/24 23:59 23:59 23:59 23:59 Intake Total 300 1570 300 Output Total 600 1075 1000 Balance -300 495 -700 Meds/Results Medications: Active Medications Generic Name Dose Route Start Last Admin Trade Name Freq PRN Reason Stop Dose Admin Acetaminophen 650 mg 07/15/24 11:43 Acetaminophen 325 Mg Tablet PO Q4H PRN Mild Pain (1-3) or Fever Amlodipine Besylate 10 mg 07/15/24 15:35 07/16/24 11:52 Amlodipine Besylate 10 Mg Tablet PO 10 mg DAILY POLLY Administration Atorvastatin Calcium 20 mg 07/15/24 21:00 07/16/24 20:28 Atorvastatin 20 Mg Tablet PO 20 mg QHS POLLY Administration Calcitriol 0.25 mcg 07/15/24 15:35 07/16/24 11:52 Calcitriol 0.25 Mcg Capsule PO 0.25 mcg DAILY POLLY Administration Dextrose 12.5 gm 07/15/24 15:17 Dextrose 50% 25 Gm/50 Ml Syringe IV PUSH PRN PRN Hypoglycemia Protocol Empagliflozin 25 mg 07/16/24 09:00 07/16/24 08:45 Empagliflozin 25 Mg Tablet PO Not Given DAILY POLLY Enoxaparin Sodium 40 mg 07/16/24 09:00 07/16/24 08:36 Enoxaparin 40 Mg/0.4 Ml Syringe SUB-Q 40 mg DAILY POLLY Administration Furosemide 40 mg 07/15/24 21:00 07/16/24 20:28 Furosemide Inj 40 Mg/4 Ml Vial IV PUSH 40 mg Q12HR POLLY Administration Glucagon 1 mg 07/15/24 15:17 Glucagon For Inj 1 Mg Vial IM PRN PRN Hypoglycemia Protocol Glucose 15 gm 07/15/24 15:17 Glucose Oral Gel 15 Gm Of Glucse In 37.5 Gm Tube PO PRN PRN Hypoglycemia Protocol Dextrose 1,000 mls @ 100 mls/hr 07/15/24 15:17 Dextrose 5% 1,000 Ml IVPB PRN PRN Hypoglycemia Protocol Insulin Aspart 1 - 3 units 07/15/24 21:00 07/16/24 20:28 Insulin Aspart (*Bkc) 100 Units/Ml SUB-Q Not Given HS POLLY Protocol Insulin Aspart 3 - 6 units 07/15/24 17:00 07/16/24 17:24 Insulin Aspart (*Bkc) 100 Units/Ml SUB-Q Not Given TIDWM [facility] Protocol Linaclotide 145 mcg 07/15/24 15:18 Linaclotide 145 Mcg Capsule PO DAILY PRN constipation Metoprolol Succinate 12.5 mg 07/17/24 09:00 Metoprolol Succinate Ext Rel 12.5 Mg Tabcr PO QAM [facility] Perflutren Lipid Microsphere 0 ml 07/15/24 13:56 Perflutren Lipid Microspheres 1.5 Ml Vial Diluted To 10 Ml Total Volume IV PUSH 07/18/24 13:56 ONCE PRN adequate visualization Protocol Sacubitril/Valsartan 1 tab 07/16/24 21:00 07/16/24 20:28 Sacubitril/Valsartan 24-26 Mg Tablet PO 1 tab Q12HR POLLY Administration Radiology Results: ITS Impressions Chest X-Ray 07/15/24 10:48 IMPRESSION: Cardiomegaly with cardiac decompensation and pulmonary edema. Right basilar atelectasis versus pneumonia with possible effusion. Venous Doppler Study 07/16/24 10:51 IMPRESSION: 1. No deep venous thrombosis. Labs Labs: Laboratory Results - last 24 hr 07/16/24 07/16/24 07/16/24 07:47 11:39 16:42 POC Capillary Glucose 103 142 H 100 07/16/24 20:23 POC Capillary Glucose 157 H Echo 1. Left ventricular chamber dimension is normal. 2. Left ventricular systolic function is mildly reduced, estimated at 40-45%. 3. There is mildly increased left ventricular wall thickness. 4. The left ventricular diastolic function is grade I diastolic dysfunction. 5. Right ventricular systolic function is normal. 6. Left atrial chamber dimension is mildly enlarged. 7. There is moderate mitral valve regurgitation. The severity of the regurgitation may be underestimated due to eccentricity of the jet. 8. There is mild tricuspid valve regurgitation. 9. There is trivial anterior pericardial effusion.
[2024-07-17] MEDS: POTASSIUM CHLORIDE 20 MEQ ER TABLET 40 MEQ PO (06:53)
[2024-07-17 07:43] LABS: Basophils Percent Auto 0.4 % (0.2-1.2); Eosinophils Absolute Auto 0.2 K/mm3 (0-0.3); Eosinophils Percent Auto 1.9 % (0-4.4); Hematocrit 39.6 % (37.0-47.0); Hemoglobin 12.2 g/dL (12.0-15.0); Immature Granulocyte Absolute 0.02 K/mm3 (0.00-0.031); Immature Granulocyte Percent A 0.2 % (0-0.5); Lymphocytes Absolute Auto 3.17 K/mm3 (0.9-3.2); Lymphocytes Percent Auto 34.9 % (18.3-44.2); Mean Corpuscular HGB Conc 30.8 g/dl (32-36); Mean Corpuscular Hemoglobin 27.3 pg (26-34); Mean Corpuscular Volume 88.6 fl (80-100); Mean Platelet Volume 10.5 fl (7.4-10.4); Monocytes Absolute Auto 0.7 K/mm3 (0.1-0.6); Monocytes Percent Auto 7.4 % (2.6-8.5); Neutrophils Percent Auto 55.2 % (45.5-73.1); Platelet Count Result 342 k/mm3 (150-375); Red Blood Count 4.47 M/mm3 (4.2-5.4); Red Cell Distribution Width 15.4 % (11.5-14.5); White Blood Count 9.1 K/mm3 (4.5-10.0)
[2024-07-17 07:56] LABS: Alanine Aminotransferase 31 U/L (6-35); Albumin Level 3.7 g/dL (3.5-5.1); Alkaline Phosphatase 76 U/L (38-126); Anion Gap 8 mmol/L (4-12); Aspartate Amino Transferase 28 U/L (14-36); Bilirubin,Total 0.6 mg/dL (0.2-1.3); Blood Urea Nitrogen 19 mg/dL (7-17); Calcium 8.6 mg/dL (8.4-10.2); Carbon Dioxide 32 mmol/L (22-30); Chloride 100 mmol/L (98-107); Estimated CRCL calculation 46 ml/min; Estimated Glomerular Filt Rate 49; Glucose 100 mg/dL (65-110); Potassium 3.5 mmol/L (3.4-5.0); Sodium 140 mmol/L (137-145)
[2024-07-17] MEDS: FUROSEMIDE INJ 40 MG/4 ML VIAL IV PUSH ×2 (08:23→20:47)
[2024-07-17] MEDS: calcitrioL 0.25 MCG CAPSULE PO (08:23)
[2024-07-17] MEDS: amLODIPine BESYLATE 10 MG TABLET PO (08:23)
[2024-07-17] MEDS: SACUBITRIL/VALSARTAN 24-26 MG TABLET 1 TAB PO ×2 (08:24→20:47)
[2024-07-17] MEDS: METOPROLOL SUCCINATE EXT REL 25 MG TABCR PO (08:32)
--- NOTE | 2024-07-17 10:38 | P.DS_ITS ---
DS: Admitting Diagnosis Discharge Date 07/17/2024 Admitting Diagnosis Suspected congestive heart failure DS: Discharge Diagnosis Discharge Diagnosis (1) CHF (congestive heart failure): Qualifiers: Heart failure chronicity: acute Heart failure type: systolic Qualified Code(s): I50.21 - Acute systolic (congestive) heart failure Code(s): I50.9 - Heart failure, unspecified Status: Acute (2) Essential hypertension: Code(s): I10 - Essential (primary) hypertension Status: Acute (3) Type 2 diabetes mellitus: Code(s): E11.9 - Type 2 diabetes mellitus without complications Status: Acute (4) Anemia: Qualifiers: Anemia type: unspecified type Qualified Code(s): D64.9 - Anemia, unspecified Code(s): D64.9 - Anemia, unspecified Status: Acute (5) Obstructive sleep apnea: Code(s): G47.33 - Obstructive sleep apnea (adult) (pediatric) Status: Acute (6) Nonsustained ventricular tachycardia: Code(s): I47.29 - Other ventricular tachycardia Status: Acute DS: Summary Hospital Course Reason for hospitalization: Shortness of breath Hospital Course: This is a 69-year-old female with hypertension, hyperlipidemia, mitral valve prolapse, type 2 diabetes mellitus, obstructive sleep apnea, anemia, and gastroesophageal reflux disease who presented to the emergency department via private vehicle with complaints of shortness of breath. She gives a 10 day history of cough which is rarely productive of clear sputum, shortness of breath on lesser and lesser exertion, orthopnea, lower extremity edema, and occasional chest tightness which seems to occur more with shortness of breath. She has had a couple of episodes of post-tussive emesis as well. She denies fever, chills, sweats, sick contacts, pleuritic pain, palpitations, sensations of racing heart, abdominal pain, diarrhea, dysuria, and calf pain. In the ED: Vital signs on arrival include a temperature of 98.1?, blood pressure 166/105, pulse 1 9, respiratory rate 19, SpO2 95% on room air. Labs were significant for WBC count of 10.9, hemoglobin 11.7, glucose 117, lactic acid 1.3, CRP 2.2, proBNP 4930, troponin 0.014. She tested negative for influenza, RSV, and COVID. Chest x-ray showed cardiomegaly with cardiac decompensation pulmonary edema as well as right basilar atelectasis versus pneumonia with possible effusion. EKG showed a sinus tachycardia with incomplete left bundle- branch block, possible anterior and inferior myocardial infarctions of indeterminate age, and borderline ST T-wave abnormalities in the high lateral leads. She was given furosemide 40 mg IV, azithromycin 500 mg, and ceftriaxone 1 g and she is being admitted in this setting for further treatment and evaluation. Status at Discharge Functional status at discharge: independent ambulation Overall status at discharge: patient is back to baseline Time Spent with Patient Time attestation: Total time spent providing and/or coordinating discharge services:35 Exam Narrative: General: Well-developed, nontoxic-appearing female in the semi-Caldera position in no acute distress. Weight: 93.7 kg BMI: 37.8. HEENT: PERRL, EOMI. Sclera anicteric. Oral mucosa moist. Neck: Supple. No JVD. Respiratory: Respirations are nonlabored and she is speaking in full sentences. Fine crackles heard at the bases. Cardiovascular: Regular rate and rhythm with gallop. Gastrointestinal: Abdomen is soft, nontender, and nondistended with positive bowel sounds. Skin: Warm and dry. No rash or lesions on limited exam. Extremities: No cyanosis or clubbing. No lower extremity edema. No palpable knots or cords. Negative Vasquez sign bilaterally. Radial and pedal pulses intact. Neurological: Alert. Cranial nerves 2-12 are grossly intact. No gross focal d eficits to casual conversation. Psychiatric: Pleasant and cooperative with normal mood and affect. Judgment and insight intact. DS: Data Data Completed and Pending Labs on day of discharge: Labs from last 24 hours 07/17/24 07/16/24 07/16/24 07:37 20:23 16:42 WBC 9.1 RBC 4.47 Hgb 12.2 Hct 39.6 MCV 88.6 MCH 27.3 MCHC 30.8 L RDW 15.4 H Plt Count 342 MPV 10.5 H Immature Gran % (Auto) 0.2 Neut % (Auto) 55.2 Lymph % (Auto) 34.9 [place] % (Auto) 7.4 Eos % (Auto) 1.9 Baso % (Auto) 0.4 Lymph # (Auto) 3.17 [place] # (Auto) 0.7 H Eos # (Auto) 0.2 Baso # (Auto) 0.0 Abs Immat Gran (auto) 0.02 Absolute Neuts (auto) 5.0 Absolute Nucleated RBC 0.000 Nucleated RBC % 0.0 Sodium 140 Potassium 3.5 Chloride 100 Carbon Dioxide 32 H Anion Gap 8 BUN 19 H Creatinine 1.10 H Estim Creat Clear Calc 46 Estimated GFR 49 L Glucose 100 POC Capillary Glucose 157 H 100 Calcium 8.6 Total Bilirubin 0.6 AST 28 ALT 31 Alkaline Phosphatase 76 Total Protein 8.0 Albumin 3.7 07/16/24 11:39 WBC RBC Hgb Hct MCV MCH MCHC RDW Plt Count MPV Immature Gran % (Auto) Neut % (Auto) Lymph % (Auto) [place] % (Auto) Eos % (Auto) Baso % (Auto) Lymph # (Auto) [place] # (Auto) Eos # (Auto) Baso # (Auto) Abs Immat Gran (auto) Absolute Neuts (auto) Absolute Nucleated RBC Nucleated RBC % Sodium Potassium Chloride Carbon Dioxide Anion Gap BUN Creatinine Estim Creat Clear Calc Estimated GFR Glucose POC Capillary Glucose 142 H Calcium Total Bilirubin AST ALT Alkaline Phosphatase Total Protein Albumin Preliminary micro results at discharge 07/15/24 11:47 Blood Culture - Preliminary Blood 07/15/24 11:39 Blood Culture - Preliminary Blood Discharge Plan Discharge Attending physician on discharge: Gil Reeder Consulting providers: Shawnee Thompson Discharging Clinician: Gil Reeder Anticipated Discharge Date/Time: 07/17/24 10:24 Patient Disposition: Home Activity: as tolerated Diet: heart healthy and low sodium Discharge Instructions: Take medications as prescribed. You will be prescribed Lasix 40mg to be taken once daily, Entresto, and your Metoprolol will be increased to 25mg. Maintain a cardiac diet, 2 g sodium, do not over hydrate Remain active Monitor urine output Daily weights, if you gain more than 3 lb within 1 day or 5 lb in 1 week notify your primary care provider If you develop chest pain, shortness breath, fever greater than 101, nausea, or vomiting notify a clinician or come to the emergency department Follow-up with primary care provider within 1-2 weeks Also follow up with Dr. Chen as soon as possible for further evaluation regarding your visit. Thank you for [facility] for your healthcare needs Patient Instructions: Antibiotic Form Patient Language: Maltese Stand Alone Forms: General Discharge Information Follow-up/Referrals: Amina Mccray [Other] Discharge Medications: New Entresto 24-26 mg tablet 1 tablet PO BID Qty: 30 0RF metoprolol succinate 25 mg tablet extended release 24 hr 25 mg PO DAILY Qty: 30 0RF furosemide [Lasix] 40 mg tablet 40 mg PO DAILY Qty: 30 0RF Continued amlodipine 10 mg tablet 10 mg PO DAILY Qty: 90 3RF atorvastatin 20 mg tablet 20 mg PO QHS Qty: 90 3RF calcitriol 0.25 mcg capsule 0.25 mcg PO DAILY dapagliflozin propanediol [Farxiga] 10 mg tablet 10 mg PO DAILY ergocalciferol (vitamin D2) 1,250 mcg (50,000 unit) capsule 50,000 unit PO WEEKLY Patient Comments: takes on Tuesdays Linzess 72 mcg capsule 145 mcg PO DAILY PRN (Reason: constipation) Trulicity 1.5 mg/0.5 mL pen injector 1.5 mg subcut WEEKLY Patient Comments: takes on Mondays (DME) lancets [Accu-Chek Softclix Lancets] Misc See Rx Instructions .Route Qty: 100 2RF Rx Instructions: Use to check BS once daily. (DME) blood-glucose meter [Accu-Chek Guide Glucose Meter] Misc See Rx Instructions .Route Qty: 1 0RF Rx Instructions: As directed (DME) Accu-Chek Guide test strips Strip See Rx Instructions .Route Qty: 100 0RF Rx Instructions: Use strip to check glucose daily-NEEDS APPOINTMENT Held losartan 100 mg tablet 100 mg PO DAILY Qty: 90 3RF Hold Instructions: Resume on 08/14/24. Hold while starting Entresto. You will want to discuss these changes with your primary care physician in case they want to adjust this. Date of admission: 07/15/24 11:43 Primary Care Provider: Amina Mccray Admitting Provider: Karen Bunch Attending physician on admission: Gil Reeder Condition: Stable Quality VTE Prophylaxis VTE prophylaxis: pharmacologic ordered
[2024-07-17] MEDS: ENOXAPARIN 40 MG/0.4 ML SYRINGE SUB-Q (11:48)
[2024-07-17 12:10] LABS: Glucose Point of Care 116 mg/dl (65-105)
--- NOTE | 2024-07-17 12:15 | PM.IMPN ---
Progress Note: A&P Assessment and Plan (1) CHF (congestive heart failure): Qualifiers: Heart failure chronicity: acute Heart failure type: systolic Qualified Code(s): I50.21 - Acute systolic (congestive) heart failure Code(s): I50.9 - Heart failure, unspecified Status: Acute Assessment and Plan: - Symptoms: Dyspnea, lower extremity edema - New diagnosis - BNP: 4930 - EKG: Sinus tachy, incomplete LBBB - Chest XR: Cardiomegaly with cardiac decompensation and pulmonary edema.Right basilar atelectasis versus pneumonia with possible effusion. 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 in the outpt setting upon discharge - Plan to switch to oral diuretics upon discharge (2) Essential hypertension: Code(s): I10 - Essential (primary) hypertension Status: Acute Assessment and Plan: Chronic, In ED 152/97 Continue Amlodipine, losartan (3) Type 2 diabetes mellitus: Code(s): E11.9 - Type 2 diabetes mellitus without complications Status: Acute Assessment and Plan: - hypoglycemia protocol - POC blood glucose ACHS - SSI - correct regimen ordered - low dose TIDWM and HS - A1C 6.0 % (4) Anemia: Qualifiers: Anemia type: unspecified type Qualified Code(s): D64.9 - Anemia, unspecified Code(s): D64.9 - Anemia, unspecified Status: Acute Assessment and Plan: - Chronic, stable - Cardiology adding b-juana and Entresto, discontinuing Losartan (5) Obstructive sleep apnea: Code(s): G47.33 - Obstructive sleep apnea (adult) (pediatric) Status: Acute Assessment and Plan: - CPAP (6) Nonsustained ventricular tachycardia: Code(s): I47.29 - Other ventricular tachycardia Status: Acute Assessment and Plan: - Adding b-juana Time Spent With Patient Time: Subjective Date/time seen: 07/17/24 12:15 Interval history: 69-year-old female with hypertension, hyperlipidemia, mitral valve prolapse, type 2 diabetes mellitus, obstructive sleep apnea, anemia, and gastroesophageal reflux disease who presented to the emergency department via private vehicle with complaints of shortness of breath. 07/17/2024 Patient sitting comfortably at time of examination. Denies any chest pain, shortness of breath, nausea/vomiting, or abdominal pain. Cardiology following, recommend continuing furosemide 40 mg IV b.i.d. with replacing potassium. Plan for tentative discharge tomorrow with switching to oral diuretics. Otherwise patient has no complaints. Review of Systems Review of Systems: 12 systems were reviewed and are negative except for as per HPI. Exam Narrative: General: Well-developed, nontoxic-appearing female in no acute distress. Weight: 93.7 kg BMI: 37.8. HEENT: PERRL, EOMI. Sclera anicteric. Oral mucosa moist. Neck: Supple. No JVD. Respiratory: Respirations are nonlabored and she is speaking in full sentences. Fine crackles heard at the bases. Cardiovascular: Regular rate and rhythm with gallop. Gastrointestinal: Abdomen is soft, nontender, and nondistended with positive bowel sounds. Skin: Warm and dry. No rash or lesions on limited exam. Extremities: No cyanosis or clubbing. Mild non-pitting pretibial edema, no other swelling.. No palpable knots or cords. Negative Vasquez sign bilaterally. Radial and pedal pulses intact. Neurological: Alert. No gross focal deficits to casual conversation. Psychiatric: Pleasant and cooperative with normal mood and affect. Judgment and insight intact. Objective Data Vital Signs Vital Signs: Vital Signs - 24 hr 07/16/24 13:47 07/16/24 14:33 07/16/24 15:33 Temperature 97.1 F L Pulse Rate 97 Respiratory Rate 16 Blood Pressure 139/84 Pulse Oximetry 100 Oxygen Delivery Room Air Room Air 07/16/24 16:00 07/16/24 20:00 07/16/24 21:28 Temperature 98.0 F Pulse Rate 98 95 96 Respiratory Rate 18 Blood Pressure 134/72 Pulse Oximetry 96 Oxygen Delivery 07/16/24 23:12 07/17/24 00:00 07/17/24 03:36 Temperature Pulse Rate 77 81 71 Respiratory Rate 24 H 16 Blood Pressure Pulse Oximetry 94 95 Oxygen Delivery Autopap Autopap 07/17/24 04:00 07/17/24 06:00 07/17/24 08:00 Temperature 97.5 F L Pulse Rate 83 87 87 Respiratory Rate 14 Blood Pressure 148/88 H Pulse Oximetry 96 Oxygen Delivery Intake/Output Intake/Output: Intake & Output 07/14/24 07/15/24 07/16/24 07/17/24 23:59 23:59 23:59 23:59 Intake Total 300 1570 540 Output Total 600 1075 1000 Balance -300 495 -460 Meds/Results Medications: Active Medications Generic Name Dose Route Start Last Admin Trade Name Freq PRN Reason Stop Dose Admin Acetaminophen 650 mg 07/15/24 11:43 Acetaminophen 325 Mg Tablet PO Q4H PRN Mild Pain (1-3) or Fever Amlodipine Besylate 10 mg 07/15/24 15:35 07/17/24 08:23 Amlodipine Besylate 10 Mg Tablet PO 10 mg DAILY POLLY Administration Atorvastatin Calcium 20 mg 07/15/24 21:00 07/16/24 20:28 Atorvastatin 20 Mg Tablet PO 20 mg QHS POLLY Administration Calcitriol 0.25 mcg 07/15/24 15:35 07/17/24 08:23 Calcitriol 0.25 Mcg Capsule PO 0.25 mcg DAILY POLLY Administration Dextrose 12.5 gm 07/15/24 15:17 Dextrose 50% 25 Gm/50 Ml Syringe IV PUSH PRN PRN Hypoglycemia Protocol Empagliflozin 25 mg 07/16/24 09:00 07/17/24 08:24 Empagliflozin 25 Mg Tablet PO Not Given DAILY POLLY Enoxaparin Sodium 40 mg 07/16/24 09:00 07/17/24 11:48 Enoxaparin 40 Mg/0.4 Ml Syringe SUB-Q 40 mg DAILY POLLY Administration Furosemide 40 mg 07/15/24 21:00 07/17/24 08:23 Furosemide Inj 40 Mg/4 Ml Vial IV PUSH 40 mg Q12HR POLLY Administration Glucagon 1 mg 07/15/24 15:17 Glucagon For Inj 1 Mg Vial IM PRN PRN Hypoglycemia Protocol Glucose 15 gm 07/15/24 15:17 Glucose Oral Gel 15 Gm Of Glucse In 37.5 Gm Tube PO PRN PRN Hypoglycemia Protocol Dextrose 1,000 mls @ 100 mls/hr 07/15/24 15:17 Dextrose 5% 1,000 Ml IVPB PRN PRN Hypoglycemia Protocol Insulin Aspart 1 - 3 units 07/15/24 21:00 07/16/24 20:28 Insulin Aspart (*Bkc) 100 Units/Ml SUB-Q Not Given HS POLLY Protocol Insulin Aspart 3 - 6 units 07/15/24 17:00 07/17/24 11:48 Insulin Aspart (*Bkc) 100 Units/Ml SUB-Q Not Given TIDWM [facility] Protocol Linaclotide 145 mcg 07/15/24 15:18 Linaclotide 145 Mcg Capsule PO DAILY PRN constipation Metoprolol Succinate 25 mg 07/17/24 09:00 07/17/24 08:32 Metoprolol Succinate Ext Rel 25 Mg Tabcr PO 25 mg QAM POLLY Administration Perflutren Lipid Microsphere 0 ml 07/15/24 13:56 Perflutren Lipid Microspheres 1.5 Ml Vial Diluted To 10 Ml Total Volume IV PUSH 07/18/24 13:56 ONCE PRN adequate visualization Protocol Sacubitril/Valsartan 1 tab 07/16/24 21:00 07/17/24 08:24 Sacubitril/Valsartan 24-26 Mg Tablet PO 1 tab Q12HR POLLY Administration Radiology Results: ITS Impressions Chest X-Ray 07/15/24 10:48 IMPRESSION: Cardiomegaly with cardiac decompensation and pulmonary edema. Right basilar atelectasis versus pneumonia with possible effusion. Venous Doppler Study 07/16/24 10:51 IMPRESSION: 1. No deep venous thrombosis. Labs Labs: Laboratory Results - last 24 hr 07/16/24 07/16/24 07/17/24 16:42 20:23 07:37 WBC 9.1 RBC 4.47 Hgb 12.2 Hct 39.6 MCV 88.6 MCH 27.3 MCHC 30.8 L RDW 15.4 H Plt Count 342 MPV 10.5 H Immature Gran % (Auto) 0.2 Neut % (Auto) 55.2 Lymph % (Auto) 34.9 [place] % (Auto) 7.4 Eos % (Auto) 1.9 Baso % (Auto) 0.4 Lymph # (Auto) 3.17 [place] # (Auto) 0.7 H Eos # (Auto) 0.2 Baso # (Auto) 0.0 Abs Immat Gran (auto) 0.02 Absolute Neuts (auto) 5.0 Absolute Nucleated RBC 0.000 Nucleated RBC % 0.0 Sodium 140 Potassium 3.5 Chloride 100 Carbon Dioxide 32 H Anion Gap 8 BUN 19 H Creatinine 1.10 H Estim Creat Clear Calc 46 Estimated GFR 49 L Glucose 100 POC Capillary Glucose 100 157 H Calcium 8.6 Total Bilirubin 0.6 AST 28 ALT 31 Alkaline Phosphatase 76 Total Protein 8.0 Albumin 3.7 07/17/24 12:03 WBC RBC Hgb Hct MCV MCH MCHC RDW Plt Count MPV Immature Gran % (Auto) Neut % (Auto) Lymph % (Auto) [place] % (Auto) Eos % (Auto) Baso % (Auto) Lymph # (Auto) [place] # (Auto) Eos # (Auto) Baso # (Auto) Abs Immat Gran (auto) Absolute Neuts (auto) Absolute Nucleated RBC Nucleated RBC % Sodium Potassium Chloride Carbon Dioxide Anion Gap BUN Creatinine Estim Creat Clear Calc Estimated GFR Glucose POC Capillary Glucose 116 H Calcium Total Bilirubin AST ALT Alkaline Phosphatase Total Protein Albumin Quality VTE Prophylaxis VTE prophylaxis: pharmacologic ordered
[2024-07-17 16:52] LABS: Glucose Point of Care 143 mg/dl (65-105)
[2024-07-17 19:30] LABS: Glucose Point of Care 183 mg/dl (65-105)
[2024-07-17] MEDS: ATORVASTATIN 20 MG TABLET PO (20:48)
[2024-07-18] VITALS (7 sets, daily range): BP systolic 112; BP diastolic 55; PULSE 70–80; RESP 12–17; TEMP 36.7; O2SAT 93–94
[2024-07-18 05:37] LABS: Basophils Absolute Auto 0.1 K/mm3 (0.0-0.1); Basophils Percent Auto 0.6 % (0.2-1.2); Eosinophils Absolute Auto 0.2 K/mm3 (0-0.3); Eosinophils Percent Auto 1.7 % (0-4.4); Hematocrit 41.2 % (37.0-47.0); Hemoglobin 12.9 g/dL (12.0-15.0); Immature Granulocyte Absolute 0.04 K/mm3 (0.00-0.031); Immature Granulocyte Percent A 0.4 % (0-0.5); Lymphocytes Absolute Auto 2.97 K/mm3 (0.9-3.2); Lymphocytes Percent Auto 29.6 % (18.3-44.2); Mean Corpuscular HGB Conc 31.3 g/dl (32-36); Mean Corpuscular Hemoglobin 27.2 pg (26-34); Mean Corpuscular Volume 86.7 fl (80-100); Mean Platelet Volume 10.8 fl (7.4-10.4); Monocytes Absolute Auto 0.7 K/mm3 (0.1-0.6); Monocytes Percent Auto 6.6 % (2.6-8.5); Neutrophils Absolute Auto 6.1 K/mm3 (1.3-6.7); Neutrophils Percent Auto 61.1 % (45.5-73.1); Platelet Count Result 366 k/mm3 (150-375); Red Blood Count 4.75 M/mm3 (4.2-5.4); Red Cell Distribution Width 15.3 % (11.5-14.5)
[2024-07-18 05:53] LABS: Alanine Aminotransferase 30 U/L (6-35); Albumin Level 3.8 g/dL (3.5-5.1); Alkaline Phosphatase 73 U/L (38-126); Anion Gap 9 mmol/L (4-12); Aspartate Amino Transferase 30 U/L (14-36); Bilirubin,Total 0.4 mg/dL (0.2-1.3); Blood Urea Nitrogen 24 mg/dL (7-17); Calcium 8.8 mg/dL (8.4-10.2); Carbon Dioxide 31 mmol/L (22-30); Chloride 99 mmol/L (98-107); Estimated CRCL calculation 44 ml/min; Estimated Glomerular Filt Rate 47; Glucose 109 mg/dL (65-110); Potassium 3.6 mmol/L (3.4-5.0); Sodium 139 mmol/L (137-145)
[2024-07-18 07:52] LABS: Glucose Point of Care 89 mg/dl (65-105)
[2024-07-18] MEDS: calcitrioL 0.25 MCG CAPSULE PO (08:30)
[2024-07-18] MEDS: SACUBITRIL/VALSARTAN 24-26 MG TABLET 1 TAB PO (08:30)
[2024-07-18] MEDS: METOPROLOL SUCCINATE EXT REL 25 MG TABCR PO (08:31)
[2024-07-18] MEDS: ENOXAPARIN 40 MG/0.4 ML SYRINGE SUB-Q (08:32)
[2024-07-18] MEDS: FUROSEMIDE INJ 40 MG/4 ML VIAL IV PUSH (08:32)
[2024-07-18] MEDS: amLODIPine BESYLATE 10 MG TABLET PO (08:32)
--- NOTE | 2024-07-18 09:51 | PM.DS ---
DS: Admitting Diagnosis Discharge Date 07/18/2024 Admitting Diagnosis New CHF Diagnosis DS: Discharge Diagnosis Discharge Diagnosis (1) CHF (congestive heart failure): Qualifiers: Heart failure chronicity: acute Heart failure type: systolic Qualified Code(s): I50.21 - Acute systolic (congestive) heart failure Code(s): I50.9 - Heart failure, unspecified Status: Acute (2) Essential hypertension: Code(s): I10 - Essential (primary) hypertension Status: Acute (3) Type 2 diabetes mellitus: Code(s): E11.9 - Type 2 diabetes mellitus without complications Status: Acute (4) Anemia: Qualifiers: Anemia type: unspecified type Qualified Code(s): D64.9 - Anemia, unspecified Code(s): D64.9 - Anemia, unspecified Status: Acute (5) Obstructive sleep apnea: Code(s): G47.33 - Obstructive sleep apnea (adult) (pediatric) Status: Acute (6) Nonsustained ventricular tachycardia: Code(s): I47.29 - Other ventricular tachycardia Status: Acute DS: Summary Hospital Course Reason for hospitalization: Shortness of breath Hospital Course: This is a 69-year-old female with hypertension, hyperlipidemia, mitral valve prolapse, type 2 diabetes mellitus, obstructive sleep apnea, anemia, and gastroesophageal reflux disease who presented to the emergency department via private vehicle with complaints of shortness of breath. She gives a 10 day history of cough which is rarely productive of clear sputum, shortness of breath on lesser and lesser exertion, orthopnea, lower extremity edema, and occasional chest tightness which seems to occur more with shortness of breath. She has had a couple of episodes of post-tussive emesis as well. She denies fever, chills, sweats, sick contacts, pleuritic pain, palpitations, sensations of racing heart, abdominal pain, diarrhea, dysuria, and calf pain. In the ED: Vital signs on arrival include a temperature of 98.1?, blood pressure 166/105, pulse 1 9, respiratory rate 19, SpO2 95% on room air. Labs were significant for WBC count of 10.9, hemoglobin 11.7, glucose 117, lactic acid 1.3, CRP 2.2, proBNP 4930, troponin 0.014. She tested negative for influenza, RSV, and COVID. Chest x-ray showed cardiomegaly with cardiac decompensation pulmonary edema as well as right basilar atelectasis versus pneumonia with possible effusion. EKG showed a sinus tachycardia with incomplete left bundle-branch block, possible anterior and inferior myocardial infarctions of indeterminate age, and borderline ST T-wave abnormalities in the high lateral leads. She was given furosemide 40 mg IV, azithromycin 500 mg, and ceftriaxone 1 g and she is being admitted in this setting for further treatment and evaluation. Cardiology consulted given the possible new CHF diagnosis. Echocardiogram obtained which showed normal left ventricular chamber dimension, left ventricular systolic function mildly reduced estimated at 40-45%, mildly increased left ventricular wall thickness, left ventricular diastolic function showing grade 1 diastolic dysfunction, normal right ventricular systolic function, left atrial dimension mildly enlarged, moderate mitral valve regurgitation, mild tricuspid valve regurgitation, trivial anterior pericardial effusion. The patient was maintained on 40 mg Lasix IV throughout her visit and will transition to oral Lasix 40 mg p.o. OD. She also has been started Toprol XL 25 mg interval continue this in the outpatient setting for nonsustained ventricular tachycardia. We will also continue Entresto. Throughout her visit her fluid status improved to the point where she did not appear volume overloaded on exam and presented with no edema in the lower extremities. Patient is otherwise stable has been able to ambulate independently without difficulties. She follows with Dr. Chen for her mitral valve prolapse and will recommend that she follow-up with their office regarding this visit. Also recommend an ischemic evaluation as an outpatient. Patient is otherwise stable and can be discharged home. Vital signs are stable and blood work within normal limits. Plan for discharge home. Status at Discharge Functional status at discharge: independent ambulation Overall status at discharge: patient is back to baseline Time Spent with Patient Time attestation: Total time spent providing and/or coordinating discharge services: 45 Exam Narrative: General: Well-developed, nontoxic-appearing female in no acute distress. Weight: 93.7 kg BMI: 37.8. HEENT: PERRL, EOMI. Sclera anicteric. Oral mucosa moist. Neck: Supple. No JVD. Respiratory: Respirations are nonlabored and she is speaking in full sentences. Fine crackles heard at the bases. Cardiovascular: Regular rate and rhythm with gallop. Gastrointestinal: Abdomen is soft, nontender, and nondistended with positive bowel sounds. Skin: Warm and dry. No rash or lesions on limited exam. Extremities: No cyanosis or clubbing. No edema or other swelling.. No palpable knots or cords. Negative Vasquez sign bilaterally. Radial and pedal pulses intact. Neurological: Alert. No gross focal deficits to casual conversation. Psychiatric: Pleasant and cooperative with normal mood and affect. Judgment and insight intact. DS: Data Data Completed and Pending Labs on day of discharge: Labs from last 24 hours 07/18/24 07/18/24 07/17/24 07:47 05:04 19:17 WBC 10.0 RBC 4.75 Hgb 12.9 Hct 41.2 MCV 86.7 MCH 27.2 MCHC 31.3 L RDW 15.3 H Plt Count 366 MPV 10.8 H Immature Gran % (Auto) 0.4 Neut % (Auto) 61.1 Lymph % (Auto) 29.6 [place] % (Auto) 6.6 Eos % (Auto) 1.7 Baso % (Auto) 0.6 Lymph # (Auto) 2.97 [place] # (Auto) 0.7 H Eos # (Auto) 0.2 Baso # (Auto) 0.1 Abs Immat Gran (auto) 0.04 H Absolute Neuts (auto) 6.1 Absolute Nucleated RBC 0.000 Nucleated RBC % 0.0 Sodium 139 Potassium 3.6 Chloride 99 Carbon Dioxide 31 H Anion Gap 9 BUN 24 H Creatinine 1.15 H Estim Creat Clear Calc 44 Estimated GFR 47 L Glucose 109 POC Capillary Glucose 89 183 H Calcium 8.8 Total Bilirubin 0.4 AST 30 ALT 30 Alkaline Phosphatase 73 Total Protein 8.0 Albumin 3.8 07/17/24 07/17/24 16:49 12:03 WBC RBC Hgb Hct MCV MCH MCHC RDW Plt Count MPV Immature Gran % (Auto) Neut % (Auto) Lymph % (Auto) [place] % (Auto) Eos % (Auto) Baso % (Auto) Lymph # (Auto) [place] # (Auto) Eos # (Auto) Baso # (Auto) Abs Immat Gran (auto) Absolute Neuts (auto) Absolute Nucleated RBC Nucleated RBC % Sodium Potassium Chloride Carbon Dioxide Anion Gap BUN Creatinine Estim Creat Clear Calc Estimated GFR Glucose POC Capillary Glucose 143 H 116 H Calcium Total Bilirubin AST ALT Alkaline Phosphatase Total Protein Albumin Preliminary micro results at discharge 07/15/24 11:47 Blood Culture - Preliminary Blood 07/15/24 11:39 Blood Culture - Preliminary Blood Discharge Plan Discharge Attending physician on discharge: Gil Reeder Consulting providers: Shawnee Thompson Discharging Clinician: Gil Reeder Anticipated Discharge Date/Time: 07/18/24 09:50 Patient Disposition: Home Activity: as tolerated Diet: heart healthy and low sodium Discharge Instructions: Take medications as prescribed. You will be prescribed Lasix 40mg to be taken once daily, Entresto, and your Metoprolol will be increased to 25mg. Maintain a cardiac diet, 2 g sodium, do not over hydrate Remain active Monitor urine output Daily weights, if you gain more than 3 lb within 1 day or 5 lb in 1 week notify your primary care provider If you develop chest pain, shortness breath, fever greater than 101, nausea, or vomiting notify a clinician or come to the emergency department Follow-up with primary care provider within 1-2 weeks Also follow up with Dr. Chen as soon as possible for further evaluation regarding your visit. Thank you for [facility] for your healthcare needs Patient Instructions: Antibiotic Form Patient Language: Icelandic Stand Alone Forms: General Discharge Information Follow-up/Referrals: Amina Mccray [Other] Discharge Medications: New furosemide [Lasix] 40 mg tablet 40 mg PO DAILY Qty: 30 0RF Entresto 24-26 mg tablet 1 tablet PO BID Qty: 30 0RF metoprolol succinate 25 mg tablet extended release 24 hr 25 mg PO DAILY Qty: 30 0RF Continued amlodipine 10 mg tablet 10 mg PO DAILY Qty: 90 3RF atorvastatin 20 mg tablet 20 mg PO QHS Qty: 90 3RF calcitriol 0.25 mcg capsule 0.25 mcg PO DAILY dapagliflozin propanediol [Farxiga] 10 mg tablet 10 mg PO DAILY ergocalciferol (vitamin D2) 1,250 mcg (50,000 unit) capsule 50,000 unit PO WEEKLY Patient Comments: takes on Tuesdays Linzess 72 mcg capsule 145 mcg PO DAILY PRN (Reason: constipation) Trulicity 1.5 mg/0.5 mL pen injector 1.5 mg subcut WEEKLY Patient Comments: takes on Mondays (DME) lancets [Accu-Chek Softclix Lancets] Misc See Rx Instructions .Route Qty: 100 2RF Rx Instructions: Use to check BS once daily. (DME) blood-glucose meter [Accu-Chek Guide Glucose Meter] Misc See Rx Instructions .Route Qty: 1 0RF Rx Instructions: As directed (DME) Accu-Chek Guide test strips Strip See Rx Instructions .Route Qty: 100 0RF Rx Instructions: Use strip to check glucose daily-NEEDS APPOINTMENT Held losartan 100 mg tablet 100 mg PO DAILY Qty: 90 3RF Hold Instructions: Resume on 08/14/24. Hold while starting Entresto. You will want to discuss these changes with your primary care physician in case they want to adjust this. Date of admission: 07/15/24 11:43 Primary Care Provider: Amina Mccray Admitting Provider: Karen Bunch Attending physician on admission: Gil Reeder Condition: Stable Quality VTE Prophylaxis VTE prophylaxis: pharmacologic ordered
[2024-07-18 11:55] LABS: Glucose Point of Care 102 mg/dl (65-105)
--- NOTE | 2024-07-18 12:59 | P.PNCA_ITS ---
Progress Note: A&P Assessment and Plan (1) CHF (congestive heart failure): Qualifiers: Heart failure chronicity: acute Heart failure type: systolic Qualified Code(s): I50.21 - Acute systolic (congestive) heart failure Code(s): I50.9 - Heart failure, unspecified Status: Acute Assessment and Plan: HFmrEF, EF 40-45%. * Oral lasix 40 mg PO OD * Continue Toprol-Xl 25 mg PO OD * Strict intake and output * Daily weights * CHF counseling * She follows with Dr. Chen because of her mitral valve prolapse. Recommend close outpatient follow-up with her after discharge. She will have an ischemic evaluation as an outpatient (2) Hyperlipidemia: Qualifiers: Hyperlipidemia type: mixed hyperlipidemia Qualified Code(s): E78.2 - Mixed hyperlipidemia Code(s): E78.5 - Hyperlipidemia, unspecified Status: Acute Assessment and Plan: Continue statin (3) Nonsustained ventricular tachycardia: Code(s): I47.29 - Other ventricular tachycardia Status: Acute Assessment and Plan: Will increase her metoprolol (4) Essential (primary) hypertension: Code(s): I10 - Essential (primary) hypertension Status: Acute Assessment and Plan: Above goal. As above, added beta-juana. Continue Entresto Subjective Date/time seen: 07/18/24 12:59 Interval history: 69-year-old female with hypertension, hyperlipidemia, mitral valve prolapse, type 2 diabetes mellitus, obstructive sleep apnea, anemia, and gastroesophageal reflux disease who presented to the emergency department via private vehicle with complaints of shortness of breath. Date of service 07/18/2024: No acute events overnight Review of Systems Review of Systems: All systems reviewed & are unremarkable except as noted in HPI and below Constitutional: Constitutional: Denies body ache(s) Eyes: Eyes: Denies blurry vision ENT: Reports Normal hearing present Cardiovascular: Cardiovascular: Denies chest pain Respiratory: Respiratory: Denies hemoptysis Gastrointestinal: Gastrointestinal: Denies vomiting Genitourinary: Genitourinary: Denies hematuria Musculoskeletal: Musculoskeletal: Denies myalgias Integumentary/Breasts: Skin/Breast: Denies dry skin Neurologic: Reports Normal hearing present and Denies Abnormal speech present Psychiatric: Psychiatric: Denies anxiety Endocrine: Endocrine: Denies change in body appearance Hematologic/Lymphatic: Hematologic/Lymphatic: Denies easy bleeding Allergic/Immunologic: Allergic/Immunologic: Denies GI upset with certain foods Exam Const: General: comfortable, no acute distress, alert and awake Orientation/consciousness: patient oriented x3 HENMT: Head: normal to inspection Eyes: General: appearance normal, both eyes and all related structures Pupils: Equal, round and reactive pupils present Neck: Neck: normal visual inspection, supple and no JVD Carotids: normal carotid upstroke Resp: Effort & Inspection: normal respiratory effort Auscultation: rales Cardio: Rate: regular rate Rhythm: regular rhythm Heart sounds: S1 normal heart sound present, S2 normal heart sound present and Murmur heart sound present GI: Auscultation: normal bowel sounds Skin: General skin exam: normal color Neuro: General: patient oriented x3 Cranial nerves: Yes Equal, round and reactive pupils present and Yes Normal hearing present Speech: normal speech and No Abnormal speech present Sensory Exam: normal sensation Extrem: Other: mild pretibial edema Psych: Appearance: grossly normal Mental Status: mental status grossly normal Objective Data Vital Signs Vital Signs: Vital Signs - 24 hr 07/17/24 14:00 07/17/24 16:00 07/17/24 20:00 Temperature 36.7 C Pulse Rate 87 85 82 Respiratory Rate 16 Blood Pressure 122/76 Pulse Oximetry 99 Oxygen Delivery 07/17/24 21:07 07/17/24 23:33 07/18/24 00:00 Temperature 36.3 C L Pulse Rate 81 74 74 Respiratory Rate 16 20 Blood Pressure 129/76 Pulse Oximetry 97 94 Oxygen Delivery Autopap 07/18/24 02:25 07/18/24 04:00 07/18/24 05:26 Temperature 36.7 C Pulse Rate 72 70 77 Respiratory Rate 17 12 Blood Pressure 112/55 L Pulse Oximetry 94 93 Oxygen Delivery Autopap 07/18/24 08:30 07/18/24 08:30 07/18/24 08:31 Temperature Pulse Rate 79 80 Respiratory Rate Blood Pressure Pulse Oximetry Oxygen Delivery Room Air Intake/Output Intake/Output: Intake & Output 07/15/24 07/16/24 07/17/24 07/18/24 23:59 23:59 23:59 23:59 Intake Total 300 1570 860 470 Output Total 600 1075 1800 1979 Balance -300 377 -[phone] -[phone] Meds/Results Medications: Active Medications Generic Name Dose Route Start Last Admin Trade Name Freq PRN Reason Stop Dose Admin Acetaminophen 650 mg 07/15/24 11:43 Acetaminophen 325 Mg Tablet PO Q4H PRN Mild Pain (1-3) or Fever Amlodipine Besylate 10 mg 07/15/24 15:35 07/18/24 08:32 Amlodipine Besylate 10 Mg Tablet PO 10 mg DAILY POLLY Administration Atorvastatin Calcium 20 mg 07/15/24 21:00 07/17/24 20:48 Atorvastatin 20 Mg Tablet PO 20 mg QHS POLLY Administration Calcitriol 0.25 mcg 07/15/24 15:35 07/18/24 08:30 Calcitriol 0.25 Mcg Capsule PO 0.25 mcg DAILY POLLY Administration Dextrose 12.5 gm 07/15/24 15:17 Dextrose 50% 25 Gm/50 Ml Syringe IV PUSH PRN PRN Hypoglycemia Protocol Empagliflozin 25 mg 07/16/24 09:00 07/18/24 08:32 Empagliflozin 25 Mg Tablet PO Not Given DAILY POLLY Enoxaparin Sodium 40 mg 07/16/24 09:00 07/18/24 08:32 Enoxaparin 40 Mg/0.4 Ml Syringe SUB-Q 40 mg DAILY POLLY Administration Furosemide 40 mg 07/15/24 21:00 07/18/24 08:32 Furosemide Inj 40 Mg/4 Ml Vial IV PUSH 40 mg Q12HR POLLY Administration Glucagon 1 mg 07/15/24 15:17 Glucagon For Inj 1 Mg Vial IM PRN PRN Hypoglycemia Protocol Glucose 15 gm 07/15/24 15:17 Glucose Oral Gel 15 Gm Of Glucse In 37.5 Gm Tube PO PRN PRN Hypoglycemia Protocol Dextrose 1,000 mls @ 100 mls/hr 07/15/24 15:17 Dextrose 5% 1,000 Ml IVPB PRN PRN Hypoglycemia Protocol Insulin Aspart 1 - 3 units 07/15/24 21:00 07/17/24 23:01 Insulin Aspart (*Bkc) 100 Units/Ml SUB-Q Not Given HS POLLY Protocol Insulin Aspart 3 - 6 units 07/15/24 17:00 07/18/24 08:28 Insulin Aspart (*Bkc) 100 Units/Ml SUB-Q Not Given TIDWM POLLY Protocol Linaclotide 145 mcg 07/15/24 15:18 Linaclotide 145 Mcg Capsule PO DAILY PRN constipation Metoprolol Succinate 25 mg 07/17/24 09:00 07/18/24 08:31 Metoprolol Succinate Ext Rel 25 Mg Tabcr PO 25 mg QAM POLLY Administration Perflutren Lipid Microsphere 0 ml 07/15/24 13:56 Perflutren Lipid Microspheres 1.5 Ml Vial Diluted To 10 Ml Total Volume IV PUSH 07/18/24 13:56 ONCE PRN adequate visualization Protocol Sacubitril/Valsartan 1 tab 07/16/24 21:00 07/18/24 08:30 Sacubitril/Valsartan 24-26 Mg Tablet PO 1 tab Q12HR POLLY Administration Radiology Results: ITS Impressions Chest X-Ray 07/15/24 10:48 IMPRESSION: Cardiomegaly with cardiac decompensation and pulmonary edema. Right basilar atelectasis versus pneumonia with possible effusion. Venous Doppler Study 07/16/24 10:51 IMPRESSION: 1. No deep venous thrombosis. Labs Labs: Laboratory Results - last 24 hr 07/17/24 07/17/24 07/18/24 16:49 19:17 05:04 WBC 10.0 RBC 4.75 Hgb 12.9 Hct 41.2 MCV 86.7 MCH 27.2 MCHC 31.3 L RDW 15.3 H Plt Count 366 MPV 10.8 H Immature Gran % (Auto) 0.4 Neut % (Auto) 61.1 Lymph % (Auto) 29.6 Rush % (Auto) 6.6 Eos % (Auto) 1.7 Baso % (Auto) 0.6 Lymph # (Auto) 2.97 Rush # (Auto) 0.7 H Eos # (Auto) 0.2 Baso # (Auto) 0.1 Abs Immat Gran (auto) 0.04 H Absolute Neuts (auto) 6.1 Absolute Nucleated RBC 0.000 Nucleated RBC % 0.0 Sodium 139 Potassium 3.6 Chloride 99 Carbon Dioxide 31 H Anion Gap 9 BUN 24 H Creatinine 1.15 H Estim Creat Clear Calc 44 Estimated GFR 47 L Glucose 109 POC Capillary Glucose 143 H 183 H Calcium 8.8 Total Bilirubin 0.4 AST 30 ALT 30 Alkaline Phosphatase 73 Total Protein 8.0 Albumin 3.8 07/18/24 07/18/24 07:47 11:34 WBC RBC Hgb Hct MCV MCH MCHC RDW Plt Count MPV Immature Gran % (Auto) Neut % (Auto) Lymph % (Auto) Rush % (Auto) Eos % (Auto) Baso % (Auto) Lymph # (Auto) Rush # (Auto) Eos # (Auto) Baso # (Auto) Abs Immat Gran (auto) Absolute Neuts (auto) Absolute Nucleated RBC Nucleated RBC % Sodium Potassium Chloride Carbon Dioxide Anion Gap BUN Creatinine Estim Creat Clear Calc Estimated GFR Glucose POC Capillary Glucose 89 102 Calcium Total Bilirubin AST ALT Alkaline Phosphatase Total Protein Albumin
[2024-07-18 17:38] LABS: Pneumococcal Antigen Urine NOT DETECTED
[2024-07-19 17:57] LABS: Mycoplasma IgM Antibody Titer 168 U/mL
[2024-07-23 18:43] LABS: Legionella pneumophila Ag Ur NOT DETECTED
== END 2024-07-18 13:20 | disposition home or self-care (01) ==
LOC: ANHED 11:22 → ANH3MEDSUR 14:28
PROVIDERS: Physician Assistant; Admitting Provider Hospitalist; Emergency Provider Emergency Medicine; Visit Provider Physician Assistant
DX: I11.0 Hypertensive heart disease with heart failure (principal); I50.21 Acute systolic (congestive) heart failure; I47.29 Other ventricular tachycardia; E78.2 Mixed hyperlipidemia; E11.9 Type 2 diabetes mellitus without complications; G47.33 Obstructive sleep apnea (adult) (pediatric); D64.9 Anemia, unspecified; E55.9 Vitamin D deficiency, unspecified; I34.1 Nonrheumatic mitral (valve) prolapse; K21.9 Gastro-esophageal reflux disease without esophagitis; Z20.822 Contact with and (suspected) exposure to COVID-19; Z87.891 Personal history of nicotine dependence; Z79.84 Long term (current) use of oral hypoglycemic drugs; Z79.85 Long-term (current) use of injectable non-insulin antidiabetic drugs; Z79.899 Other long term (current) drug therapy; Z90.710 Acquired absence of both cervix and uterus; Z96.651 Presence of right artificial knee joint
CPT/HCPCS: 36415; 71045; 80048; 80053; 80061; 82948; 83036; 83605; 83735; 83880; 84484; 85025; 85027; 85610; 85730; 86140; 86738; 87040; 87449; 87637; 87899; 93005; 93306; 93970; 94002; 96365; 96366; 96368; 96372; 96375; 96376; 97161; 97165; 99285; A9270; G0378; J0456; J0696; J1650; J1938